=== PATIENT | female | born 1975 | race Caucasian/White ===

== ENCOUNTER 2016-10-26 18:04 | Observation (INO) | payer OTHER ==
[2016-10-26 19:17] LABS: Mean Cell Volume 96.9 fl (78-100); Mean Corpuscular Hemoglobin 32.1 pg (26-32); Mean Platelet Volume 10.3 fl (6-9.5); Platelet Count 334 K/mm3 (150-450); Red Blood Count 3.92 M/mm3 (4.1-5.4); Red Cell Distribution Width 12.8 % (11.5-14.0)
[2016-10-26 19:21] LABS: ALBUMIN 3.6 g/dL (3.4-5.0); ALKALINE PHOSPHATASE 50 U/L (46-116); ANION GAP 16.1 MEQ/L (5-15); BILIRUBIN,TOTAL 0.3 mg/dL (0.2-1.0); BLOOD UREA NITROGEN 20 mg/dL (9-20); CHLORIDE 110 mEq/L (98-107); Carbon Dioxide 20.1 mEq/L (21-32); Glucose 91 MG/DL (70-110); LIPASE 141 U/L (73-393); Potassium 3.9 mEq/L (3.5-5.1); SGOT/AST 11 U/L (15-37); SGPT/ALT 11 U/L (12-78); SODIUM 142 mEq/L (136-145); Total Protein 6.9 gm/dL (6.4-8.2)
--- NOTE | 2016-10-26 19:35 | ERPHSYRPT ---
- History of Present Illness Time Seen by Provider: 10/26/16 19:25 Historian: patient Exam Limitations: no limitations Patient Subjective Stated Complaint: states has been vomiting since 10/22/16. states she feels dehydrated. also having trouble with hemorrhoids. states she usually has them and they are worse today. also stating that she is having rectal bleeding. Triage Nursing Assessment: ambulated to room with a cane. skin w/d, color normal, resp easy. patient crying at times. moving very slowly. states was put on antibiotic recently for possible eye infection. abd soft. Physician History: 40 year old white female arrives with complaints of nausea, vomiting, diffuse abdominal pain, symptom since 10/22 16 also states her chronic hemhorroids hurt Patient states that she has chronic hemorrhoids she states it has been hurting lately she also states she's been vomiting since October 22, 2016 she states she feels dehydrated she has generalized abdominal pain patient is on chronic [place] also dextroamphetamine and Lyrica which are prescribed by her family doctor. When I arrive in the room patient is sleeping and I have to shake her to arouse her once arouse she is alert and oriented. Timing/Duration: day(s) (4 days) Activities at Onset: none (good) Quality: cramping Abdominal Pain Onset Location: generalized abdomen Pain Radiation: no radiation Severity of Pain-Max: moderate Severity of Pain-Current: mild Modifying Factors: Improves With: nothing Associated Symptoms: other (hemorrhoid pain) Previous symptoms: same symptoms as today Allergies/Adverse Reactions: Penicillins Allergy (Verified 06/17/16 05:52) Rash propoxyphene HCl [From Darvon] Allergy (Verified 06/17/16 05:52) PASS OUT Home Medications: Omeprazole 20 MG [Prilosec 20 mg] 40 mg PO DAILY 05/01/13 [History] Dextroamphetamine/Amphetamine [Adderall Xr 10 mg Capsule] 20 mg PO BID 12/21/14 [History] Ondansetron HCl [Zofran] 8 mg PO Q8H PRN PRN 12/21/14 [History] Pregabalin [Lyrica] 75 mg PO TID 02/10/16 [History] Cefdinir [Omnicef] 300 mg PO BID 10/26/16 [History] Hx Tetanus, Diphtheria Vaccination/Date Given: Yes Hx Influenza Vaccination/Date Given: Yes Hx Pneumococcal Vaccination/Date Given: No - Review of Systems Constitutional: No Fever, No Chills Eyes: No Symptoms Ears, Nose, & Throat: No Symptoms Respiratory: No Cough, No Dyspnea Cardiac: No Chest Pain, No Edema, No Syncope Abdominal/Gastrointestinal: Abdominal Pain, Nausea, Vomiting, Other (hemorrhoid pain) Genitourinary Symptoms: No Dysuria Musculoskeletal: No Back Pain, No Neck Pain Skin: No Rash Neurological: No Dizziness, No Focal Weakness, No Sensory Changes Psychological: No Symptoms Endocrine: No Symptoms All Other Systems: Reviewed and Negative - Past Medical History Pertinent Past Medical History: Yes Neurological History: Seizures ENT History: No Pertinent History Cardiac History: No Pertinent History Respiratory History: COPD Endocrine Medical History: Other Musculoskeletal History: Fibromyalgia GI Medical History: Esophageal Disorder, GERD History: No Pertinent History Psycho-Social History: Anxiety, Depression, Panic Disorder Female Reproductive Disorders: Abnormal Uterine Bleeding Other Medical History: lupus, neuropathy - Past Surgical History Past Surgical History: Yes Neuro Surgical History: No Pertinent History Cardiac: No Pertinent History Respiratory: No Pertinent History Gastrointestinal: No Pertinent History Genitourinary: No Pertinent History Musculoskeletal: No Pertinent History Female Surgical History: Hysterectomy Other Surgical History: ABLATION - TUBAL LIGATION. HAS HAD BACK PROCEDURE WHER THEY WENT IN AN CAUTERYZED HER LOWER NERVES. BILATERAL WRIST SURGERY - Social History Smoking Status: Current every day smoker How long have you smoked: yrs Exposure to second hand smoke: Yes Drug Use: none Patient Lives Alone: No - Female History Hx Now: No - Nursing Vital Signs Nursing Vital Signs: Initial Vital Signs Temperature 97.8 F Temperature Source Oral Pulse Rate 64 Respiratory Rate 16 Blood Pressure 123/70 Pain Intensity 10 - Physical Exam General Appearance: no apparent distress, alert Eye Exam: PERRL/EOMI, eyes nml inspection Ears, Nose, Throat Exam: normal ENT inspection, pharynx normal, moist mucous membranes Neck Exam: normal inspection, non-tender, supple, full range of motion Respiratory Exam: normal breath sounds, lungs clear, No respiratory distress Cardiovascular Exam: regular rate/rhythm, normal heart sounds Gastrointestinal/Abdomen Exam: soft, normal bowel sounds, other (diffuse abdominaltenderness) Back Exam: normal inspection, normal range of motion, No CVA tenderness, No vertebral tenderness Extremity Exam: normal inspection, normal range of motion, pelvis stable Neurologic Exam: alert, 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, cooperative, normal mood/affect, nml cerebellar function, sensation nml, No motor deficits Skin Exam: normal color, warm, dry SpO2 Interpretation: normal (99%) SpO2: 99 Oxygen Delivery: Room Air - Radiology Exams Abdomen X-ray Interpretation: Interpreted by me, Other (distended large bowel) Chest X-ray Interpretation: Interpreted by me (no acute disease process) Ordered Tests: Active Orders 24 hr Category Date Time Status IV Insertion STAT Care 10/26/16 19:36 Active OBSTR/ACUTE ABDOMEN SERIES Stat Exams 10/26/16 20:15 Taken AMYLASE Stat Lab 10/26/16 18:50 Completed CBC W DIFF Stat Lab 10/26/16 18:50 Completed CMP Stat Lab 10/26/16 18:50 Completed LIPASE Stat Lab 10/26/16 18:50 Completed Manual Differential NC Stat Lab 10/26/16 18:50 Completed UA W/RFX UR CULTURE Stat Lab 10/26/16 19:45 Completed Medication Summary Discontinued Medications Generic Name Dose Route Start Last Admin Trade Name Manish PRN Reason Stop Dose Admin Sodium Chloride 1,000 mls @ 999 mls/hr 10/26/16 19:36 10/26/16 19:39 Sodium Chloride 0.9% 1000 Ml IV 10/26/16 20:36 999 mls/hr .Q1H1M STA Administration Sodium Chloride Confirm 10/26/16 19:38 Sodium Chloride 0.9% 1000 Ml Administered 10/26/16 19:39 Dose 1,000 mls @ ud .ROUTE .STK-MED ONE Lidocaine HCl 20 ml 10/26/16 19:59 10/26/16 20:06 Xylocaine Hcl Viscous * MM 10/26/16 20:00 20 ml STAT STA Administration Lidocaine HCl Confirm 10/26/16 20:03 Xylocaine Hcl Viscous * Administered 10/26/16 20:04 Dose 20 ml .ROUTE .STK-MED ONE Morphine Sulfate 4 mg 10/26/16 19:44 10/26/16 19:47 Morphine Sulfate 4 Mg Inj IV 10/26/16 19:45 4 mg STAT ONE Administration Morphine Sulfate Confirm 10/26/16 19:46 Morphine Sulfate 4 Mg Inj Administered 10/26/16 19:47 Dose 4 mg .ROUTE .STK-MED ONE Ondansetron HCl 4 mg 10/26/16 19:44 10/26/16 19:47 Zofran 4 Mg/2 Ml Vial IV 10/26/16 19:45 4 mg STAT ONE Administration Ondansetron HCl Confirm 10/26/16 19:46 Zofran 4 Mg/2 Ml Vial Administered 10/26/16 19:47 Dose 4 mg .ROUTE .STK-MED ONE Lab/Rad Data: Laboratory Result Diagrams 10/26/16 18:50 10/26/16 18:50 Laboratory Results 10/26/16 10/26/16 10/26/16 Range/Units 19:45 18:50 18:50 WBC 9.0 (4.0-10.5) K/mm3 RBC 3.92 L (4.1-5.4) M/mm3 Hgb 12.6 (12.0-16.0) gm/dl Hct 38.0 (35-47) % MCV 96.9 (78-100) fl MCH 32.1 H (26-32) pg MCHC 33.2 (32-36) g/dl RDW 12.8 (11.5-14.0) % Plt Count 334 (150-450) K/mm3 MPV 10.3 H (6-9.5) fl Segmented Neutrophils 58 (36.0-66.0) % Lymphocytes (Manual) 30 (24-44) % Monocytes (Manual) 9 (0.0-12.0) % Eosinophils (Manual) 3 (0.00-3.0) % Differential Comment NORMAL Platelet Estimate NORMAL (NORMAL) Sodium 142 (136-145) mEq/L Potassium 3.9 (3.5-5.1) mEq/L Chloride 110 H (98-107) mEq/L Carbon Dioxide 20.1 L (21-32) mEq/L Anion Gap 16.1 H (5-15) MEQ/L BUN 20 (9-20) mg/dL Creatinine 0.83 (0.55-1.30) mg/dl Estimated GFR > 60 ML/MIN Glucose 91 (70-110) MG/DL Calcium 8.3 L (8.5-10.1) mg/dL Total Bilirubin 0.3 (0.2-1.0) mg/dL AST 11 L (15-37) U/L ALT 11 L (12-78) U/L Alkaline Phosphatase 50 (46-116) U/L Serum Total Protein 6.9 (6.4-8.2) gm/dL Albumin 3.6 (3.4-5.0) g/dL Amylase 22 L (25-115) U/L Lipase 141 (73-393) U/L Ur Collection Type CATH Urine Color YELLOW (YELLOW) Urine Appearance CLEAR (CLEAR) Urine pH 7.5 (5-6) Ur Specific [place] 1.015 (1.005-1.025) Urine Protein NEGATIVE (Negative) Urine Glucose (UA) NEGATIVE (NEGATIVE) mg/dL Urine Ketones NEGATIVE (NEGATIVE) Urine Nitrite NEGATIVE (NEGATIVE) Urine Bilirubin NEGATIVE (NEGATIVE) Urine Urobilinogen 4 (0-1) mg/dL Urine WBC (Auto) NEGATIVE (NEGATIVE) Urine RBC (Auto) NEGATIVE (0-5) Ross/ul Specimen Received 10/26/16:1945 - Progress Progress: improved Progress Note: 10/26/16 21:50 Patient's labs essentially normal. Patient does have a rather large hemorrhoid on rectal examination about the size of a dime which is quite tender making it almost impossible to get a rectal examination done. Viscous lidocaine was placed on the hemorrhoid by the patient's nurse. Acute abdomen on the patient shows markedly distended colon. Case discussed with Dr. Mohan who is information clerk will place patient nothing by mouth, place her on IV fluids pain medicine Zofran. Will obtain CT of the abdomen and pelvis on the floor - Departure Time of Disposition: 21:51 Departure Disposition: Observation Clinical Impression: Rectal pain Abdominal pain Qualifiers: Abdominal location: lower abdomen, unspecified Qualified Code(s): R10.30 - Lower abdominal pain, unspecified Vomiting Qualifiers: Vomiting type: unspecified Vomiting Intractability: non-intractable Nausea presence: without nausea Qualified Code(s): R11.11 - Vomiting without nausea Diarrhea Qualifiers: Diarrhea type: unspecified type Qualified Code(s): R19.7 - Diarrhea, unspecified Condition: Fair Critical Care Time: No
[2016-10-26] MEDS ORDERED: Sodium Chloride 0.9% 1000 ML 1,000 ML IV STA (19:36)
[2016-10-26] MEDS ORDERED: Sodium Chloride 0.9% 1000 ML 1,000 ML ONE (19:38)
[2016-10-26] MEDS ORDERED: Zofran 4 MG/2 ML VIAL IV ONE (19:44)
[2016-10-26] MEDS ORDERED: MORPHINE SULFATE 4 MG INJ IV ONE (19:44)
[2016-10-26] MEDS ORDERED: MORPHINE SULFATE 4 MG INJ ONE (19:46)
[2016-10-26] MEDS ORDERED: Zofran 4 MG/2 ML VIAL ONE (19:46)
[2016-10-26 19:57] LABS: ADD URINE CULTURE? NO (NO); COMPLETE URINE MICROSCOPIC? NO; Collection Type CATH; Ph 7.5 (5-6)
[2016-10-26] MEDS ORDERED: XYLOCAINE HCl Viscous MM STA (19:59)
[2016-10-26] MEDS ORDERED: XYLOCAINE HCl Viscous ONE (20:03)
[2016-10-26 21:30] LABS: Eosinophil 3 % (0.00-3.0); Platelet Estimate NORMAL (NORMAL); Total Cells Counted 100
[2016-10-26] MEDS ORDERED: Zofran 4 MG/2 ML VIAL IV PRN (22:55)
[2016-10-26] MEDS: Sodium Chloride 0.9% 1000 ML 1,000 ML IV SCH (23:03)
[2016-10-27] MEDS ORDERED: ANUSOL-HC 2.5% CREAM 30 GM TP PRN (00:56)
[2016-10-27] MEDS ORDERED: DESYREL 50 MG ONE (01:08)
[2016-10-27] MEDS ORDERED: xanAX 0.25 MG ONE (01:08)
[2016-10-27] MEDS: xanAX 0.25 MG PO SCH ×2 (01:15→22:31)
[2016-10-27] MEDS: DESYREL 50 MG PO SCH ×2 (01:15→22:35)
[2016-10-27 05:59] LABS: ALBUMIN 3.2 g/dL (3.4-5.0); ALKALINE PHOSPHATASE 43 U/L (46-116); BILIRUBIN,TOTAL 0.4 mg/dL (0.2-1.0); BLOOD UREA NITROGEN 20 mg/dL (9-20); CHLORIDE 113 mEq/L (98-107); Carbon Dioxide 22.3 mEq/L (21-32); Glucose 104 MG/DL (70-110); Potassium 3.5 mEq/L (3.5-5.1); SGOT/AST 20 U/L (15-37); SGPT/ALT 9 U/L (12-78); SODIUM 145 mEq/L (136-145); Total Protein 6.1 gm/dL (6.4-8.2)
[2016-10-27 06:01] LABS: BASOPHIL % 0.4 % (0.0-0.4); Eosinophil % 3.1 % (0.00-5.0); Granulocytes % 47.6 % (36.0-66.0); Lymphocytes % 40.9 % (24.0-44.0); Mean Cell Volume 98.3 fl (78-100); Mean Platelet Volume 10.2 fl (6-9.5); Platelet Count 298 K/mm3 (150-450); Red Blood Count 3.59 M/mm3 (4.1-5.4); White Blood Count 7.4 K/mm3 (4.0-10.5)
[2016-10-27 06:06] LABS: Mean Corpuscular Hemoglobin 31.4 pg (26-32)
[2016-10-27] MEDS: MORPHINE SULFATE 4 MG INJ IV PRN ×4 (08:11→22:30)
--- NOTE | 2016-10-27 08:43 | XRAY ---
Indication: Abdomen pain and emesis. Comparison: Chest exam of September 13, 2014 2 views of the abdomen nonacute and nonobstructed with mild fecal debris in the transverse and descending colon. Calcified splenic granulomas. Remaining solid organs are unremarkable. Osseous structures intact with mild levoscoliosis and lumbosacral degenerative changes. Impression: Single PA chest demonstrates right base fibrosis/scarring. Remaining heart and lungs normal. Bony thorax intact with lower cervical fusion surgery. Impression: 1. Mild fecal stasis without obstruction. 2. Chest demonstrates right base fibrosis/scarring. No acute cardiopulmonary abnormalities.
--- NOTE | 2016-10-27 10:02 | XRAY ---
Indication: Abdominal pain and constipation. Possible impaction. Multiple contiguous axial images obtained through the abdomen and pelvis using 80 cc Isovue 370 contrast. Oral contrast also given. Comparison: June 17, 2016 Lung bases demonstrates new moderate bibasilar dependent atelectasis. Heart is not enlarged. Contrasted stomach and bowel loops appear nonobstructed. There is moderate diffuse colonic fecal debris more than before without rectal impaction. Normal appendix. No free fluid/air. I scattered calcified splenic granulomas. Remaining liver, gallbladder, pancreas, spleen, adrenal glands, kidneys, ureters, bladder, uterus, and aorta appear unremarkable. No pathologic retroperitoneal lymphadenopathy. Osseous structures intact. Impression: 1. Worsening fecal stasis again without obstruction/impaction. 2. No new or acute intra-abdominal/pelvic abnormalities. 3. New bibasilar dependent atelectasis. CT DI is 23.69
[2016-10-27] MEDS: Sodium Chloride 0.9% 1000 ML 1,000 ML IV SCH ×2 (10:24→20:24)
[2016-10-27] MEDS: Protonix 40MG Tablet PO SCH (11:12)
[2016-10-27] MEDS: Cymbalta 30 MG Capsule PO SCH (11:12)
[2016-10-27] MEDS: CEFDINIR PO SCH ×2 (11:45→22:31)
[2016-10-27] MEDS: VOLTAREN 50 MG PO SCH ×2 (11:45→22:31)
[2016-10-27] MEDS: NORCO 5/325 MG PO SCH ×3 (13:33→20:03)
[2016-10-27] MEDS: Lyrica 25 MG PO SCH ×2 (14:34→22:31)
[2016-10-27] MEDS: Lyrica 50MG PO SCH ×2 (14:34→22:31)
[2016-10-27] MEDS ORDERED: NON-FORMULARY ITEM (Pregabalin [Lyrica] 75 MG) PO SCH (15:00)
[2016-10-27] MEDS ORDERED: Miralax Powder 17GM PACKET PO ONE (17:00)
[2016-10-27] MEDS ORDERED: Desyrel 150 MG PO SCH (22:00)
[2016-10-27] MEDS ORDERED: NON-FORMULARY ITEM (Diclofenac Sodium [Diclofenac Sodium] 75 MG) PO SCH (22:00)
[2016-10-27] MEDS ORDERED: CEFDINIR 300 MG PO SCH (22:00)
[2016-10-28] MEDS: MORPHINE SULFATE 4 MG INJ IV PRN ×4 (04:28→17:33)
[2016-10-28] MEDS: Sodium Chloride 0.9% 1000 ML 1,000 ML IV SCH ×2 (06:17→16:28)
[2016-10-28] MEDS: Cymbalta 30 MG Capsule PO SCH (08:56)
[2016-10-28] MEDS: Lyrica 50MG PO SCH ×2 (08:56→15:04)
[2016-10-28] MEDS: Protonix 40MG Tablet PO SCH (08:57)
[2016-10-28] MEDS: VOLTAREN 50 MG PO SCH (08:57)
[2016-10-28] MEDS: Lyrica 25 MG PO SCH ×2 (08:57→15:04)
[2016-10-28] MEDS: NORCO 5/325 MG PO SCH ×3 (09:01→16:52)
[2016-10-28] MEDS: Zofran 4 MG/2 ML VIAL IV PRN ×2 (09:14→17:41)
--- NOTE | 2016-10-28 09:32 | CONS ---
CONSULT DATE: 10/27/2016 This patient is seen for Dr. Meehna who is occupational therapy co director for our group today. HISTORY: The patient is a 40 year-old female who had some problems with constipation recently. She had some loose stools, given some MiraLAX. She had a CT scan that showed fecal stasis otherwise no obstruction, no acute changes. Dr. Mohan asked for surgical consult. The patient said she had colonoscopy a year or so ago that did not show any masses. She had some small benign polyps. PAST MEDICAL/SURGICAL HISTORY: Seizure disorders in the past. Fibromyalgia. Depression. Panic disorder. Reflux in the past. Ablation. Tubal ligation in the past. Bilateral wrist surgery where they worked on her nerves. She had some chronic back pain. MEDICATIONS: Includes omeprazole, Adderall, Zofran, Lyrica, Omnicef. The patient does take some Vicodin at times for aches and pains holding that at this moment. ALLERGIES: PENICILLIN, DARVON. SOCIAL HISTORY: Smoker. No alcohol abuse. REVIEW OF SYSTEMS: Ten systems reviewed negative or noncontributory as noted above and per admission assessment. PHYSICAL EXAMINATION: GENERAL: No acute distress. She is afebrile, temperature 98.8F, pulse 65, blood pressure 114/63. HEENT: Sclera nonicteric. NECK: No JVD. CHEST: Equal excursion, nonlabored breathing. CVS: Regular rhythm and pulse. ABDOMEN: Soft, minimal tenderness. No rebound or guarding. No peritoneal signs. A very benign abdominal exam. LAB DATA AND TESTS: White blood cell count 7.4, hemoglobin 11.3, PLT 298,000. Bilirubin 0.4. IMPRESSION: Vague abdominal pain, nontoxic, afebrile patient. Seems possibly related to some constipation as there is no other obvious acute surgical issues noted on CT scan, physical exam or lab findings. I recommend continued medical management of constipation. If she fails to improve we can re-evaluate and consider other testing but at this time no emergent surgery necessary, continue medical management for now. If she fails to improve could consider other GI studies but at this point continue medical management of constipation. The patient agrees with the plan. The patient was seen for Dr. Meehan who was on-call for our group today.
--- NOTE | 2016-10-28 09:50 | HP ---
HISTORY OF PRESENT ILLNESS: Tamica Cartagena is a 40 year old woman with past medical history of seizures, chronic obstructive pulmonary disease, chronic pain syndrome, gastroesophageal reflux disease, anxiety/depression, lupus, neuropathy, abnormal uterine bleeding and hemorrhoids. She presented to the emergency room yesterday with symptoms of vomiting, generalized weakness, nausea since 10/22/2016. Reportedly the patient has been having increasing trouble with hemorrhoids and having some rectal bleeding. She was unable to keep anything down due to symptoms of nausea, vomiting and felt dehydrated. She also reported generalized abdominal pain. Upon initial evaluation in the emergency room, she was noted to have blood pressure 123/70, heart rate 64, respiratory rate 16, and temperature 97.8F. After initial work up she was treated with morphine 4 mg IV x1, Zofran 4 mg IV x1 and admitted to the medical floor for further monitoring and management. Since admission she underwent CT scan of abdomen and pelvis. Initially she had been placed NPO. At the time of this evaluation earlier today she was alert, awake, and comfortable. She stated that her abdominal pain had improved. She had not had any vomiting today and she was asking for some diet to be started. Appeared comfortable. PAST MEDICAL HISTORY: As noted above. PAST SURGICAL HISTORY: Status post ablation. Tubal ligation. Hysterectomy. Procedure for her back. Bilateral wrist surgery. ALLERGIES: PENICILLIN, PROPOXYPHENE. MEDICATIONS: Home medications were reviewed. FAMILY HISTORY: Noncontributory. SOCIAL HISTORY: The patient lives at home and is an active smoker. She also has history of exposure to secondhand smoke, denies illicit drug use. REVIEW OF SYSTEMS: Denies headache or dizziness. Complains of fever. Denies chest pain, increased shortness of breath or cough. Complains of abdominal pain, nausea and vomiting as noted. Complains of constipation which is chronic. Complains of pain with hemorrhoids and bleeding. Denies urinary complaints. PHYSICAL EXAMINATION: A middle aged woman lying comfortably in bed, not in acute distress. VITAL SIGNS: Blood pressure 102/63, heart rate 64, respiratory rate 18, temperature 98.2F. Oxygen saturation 96% on room air. HEENT: Pallor is present. No icterus is noted. NECK: No JVD is present. CVS: S1, S2 present. RESPIRATORY: Breath sounds are bilaterally diminished and clear to auscultation. ABDOMEN: Obese, soft, mild tenderness right and left lower quadrants. No guarding present. NEURO: She is alert, oriented x3. EXTREMITIES: No edema on bilateral lower extremities. LABORATORY DATA AND TESTS: Labs on admission and today's labs were noted. KUB showed mild fecal stasis without obstruction. Chest x-ray showed right base fibrosis/scarring, no acute cardiopulmonary abnormality. CT scan of abdomen and pelvis from earlier today showed worsening fecal stasis again without obstruction/impaction, no new or acute intra-abdominal or pelvic abnormalities, new bibasilar dependent atelectasis. ASSESSMENT: A 40 year old female with impression: 1) Lower abdominal pain. 2) Intractable nausea and vomiting, improving. 3) Hemorrhoids. 4) Chronic pain syndrome. 5) Anxiety/depression. 6) History of seizure disorder. 7) Chronic obstructive pulmonary disease. PLAN: The patient is admitted for further monitoring and management. Initially she was kept NPO. In view of essentially negative CT scan, surgical consultation has been requested. Also, if there are no plans for procedure, will likely start diet as tolerated. The patient was placed on MiraLAX for her constipation. Likely discharge home tomorrow if clinically improved. The patient's clinical condition, work up results and plan of management was discussed with the patient and her . The patient seems to be in understanding and agreement.
[2016-10-28] MEDS ORDERED: Miralax Powder 17GM PACKET PO SCH (10:00)
[2016-10-28] MEDS ORDERED: NON-FORMULARY ITEM (Omeprazole 20 Mg [Prilosec 20 Mg] 40 MG) PO SCH (10:00)
[2016-10-28] MEDS: CEFDINIR PO SCH (10:35)
[2016-10-28 11:32] VITALS: O2SAT 95
--- NOTE | 2016-10-28 14:46 | PROG NOTE ---
DATE: 10/28/2016 Chart is reviewed and events noted. At the time of this evaluation the patient still had some lower abdominal pain however she is having constipation and requesting additional medication for that. Appears comfortable. PHYSICAL EXAMINATION: VITAL SIGNS: Blood pressure 130/58, heart rate 67, respiratory rate 20, temperature 98.2F. Oxygen saturation 95% on room air. HEENT: No pallor or icterus is noted. NECK: No JVD is present. CVS: S1, S2 present. RESPIRATORY: Breath sounds are bilaterally diminished and clear to auscultation. ABDOMEN: Obese, soft, mild tenderness in the right lower quadrant and left lower quadrant. NEURO: She is alert, oriented x3. EXTREMITIES: No edema on bilateral lower extremities. LABORATORY DATA AND TESTS: There were no new labs today. Medications were reviewed. ASSESSMENT: A 40 year old woman with impression: 1) Lower abdominal pain. 2) Intractable nausea and vomiting, now resolved. 3) Hemorrhoids. 4) Constipation. 5) Chronic pain syndrome. 6) Anxiety/depression. 7) Chronic obstructive pulmonary disease. 8) History of seizure disorder. PLAN: The patient was evaluated by surgery and conservative treatment has been recommended. She will have hemorrhoid treatment. The patient is requesting diet to be restarted and will restart diet. If the patient tolerates diet, will likely discharge home later today, will also add laxatives. If the patient tolerates diet and is feeling better, will likely discharge home later today. The patient's clinical condition, work-up results and plan of management were discussed with her and her family. They seem to be in understanding and agreement.
[2016-10-28] MEDS ORDERED: Miralax Powder 17GM PACKET PO ONE (16:15)
[2016-10-28 16:56] VITALS: BP 117/56; PULSE 77
== END 2016-10-28 18:54 | disposition home or self-care (01) ==
LOC: ED 18:04 → MED SURG 22:06
PROVIDERS: ADMIT General Practice; ATTEND General Practice
DX: R10.30 Lower abdominal pain, unspecified (principal); R11.2 Nausea with vomiting, unspecified; K64.9 Unspecified hemorrhoids; F41.8 Other specified anxiety disorders; G40.909 Epilepsy, unspecified, not intractable, without status epilepticus; J44.9 Chronic obstructive pulmonary disease, unspecified; G89.4 Chronic pain syndrome; K21.9 Gastro-esophageal reflux disease without esophagitis; G62.9 Polyneuropathy, unspecified; M79.7 Fibromyalgia; Z72.0 Tobacco use
CPT/HCPCS: 36000; 36415; 74022; 74177; 80053; 81000; 82150; 83690; 85025; 96360; 96374; 96375; 99284; G0378; J2270; J2405

== ENCOUNTER 2017-03-22 07:44 | Observation (INO) | payer OTHER ==
[2017-03-22] MEDS ORDERED: Hydromorphone 1 mg/ml Ampule IV ONE (08:27)
[2017-03-22] MEDS ORDERED: Sodium Chloride 0.9% 1000 ML 1,000 ML IV STA (08:27)
[2017-03-22] MEDS ORDERED: Zofran 4 MG/2 ML VIAL IV ONE (08:27)
[2017-03-22] MEDS ORDERED: PROTONIX 40 MG IV IV ONE ×2 (08:27→08:44)
[2017-03-22 08:39] LABS: BASOPHIL % 0.2 % (0.0-0.4); Eosinophil % 1.4 % (0.00-5.0); Granulocytes % 76.1 % (36.0-66.0); Mean Cell Volume 98.4 fl (78-100); Mean Corpuscular Hemoglobin 32.6 pg (26-32); Mean Platelet Volume 10.3 fl (6-9.5); Monocytes % 5.3 % (0.0-12.0); Platelet Count 291 K/mm3 (150-450); Red Blood Count 4.26 M/mm3 (4.1-5.4); Red Cell Distribution Width 13.6 % (11.5-14.0); White Blood Count 8.3 K/mm3 (4.0-10.5)
[2017-03-22 08:43] LABS: ADD URINE CULTURE? YES (NO); COMPLETE URINE MICROSCOPIC? YES; Collection Type VOID; Ph 5.5 (5-6)
[2017-03-22] MEDS ORDERED: Zofran 4 MG/2 ML VIAL ONE (08:44)
[2017-03-22] MEDS ORDERED: Hydromorphone 1 mg/ml Ampule ONE (08:44)
[2017-03-22] MEDS ORDERED: Sodium Chloride 0.9% 1000 ML 1,000 ML ONE (08:45)
--- NOTE | 2017-03-22 08:45 | ERPHSYRPT ---
- History of Present Illness Time Seen by Provider: 03/22/17 08:20 Historian: patient, other Exam Limitations: clinical condition Patient Subjective Stated Complaint: pt states has had loose foul smelling stools for the past week up to 5 times daily. Today is having severe pain in the lower abdomin that radiates into the right thigh. pain is so bad it is causing a headache. denies any recent antibiotic use. Triage Nursing Assessment: alert and oriented. pink warm and dry. afebrile. bowel sounds active. crying in pain. guarding the abdomin. able to ambulate into the er Physician History: PATIENT COMPLAINS OF WATERY DIARRHEA FOR 4-5 DAYS ASSOCIATED SEVERE LOWER ABDOMINAL PAINS SINCE 3AM, HAS NAUSEA, DENIES EMESIS, FEVER, OR URINARY SYMPTOMS. Timing/Duration: day(s) Activities at Onset: none Quality: sharpness, throbbing Abdominal Pain Onset Location: periumbilical, suprapubic Pain Radiation: no radiation Severity of Pain-Max: moderate Severity of Pain-Current: moderate Modifying Factors: Improves With: defecating Associated Symptoms: diarrhea, nausea Previous symptoms: no prior history Allergies/Adverse Reactions: Penicillins Allergy (Verified 03/22/17 08:04) Rash propoxyphene HCl [From Darvon] Allergy (Verified 03/22/17 08:04) PASS OUT Home Medications: Omeprazole 20 MG [Prilosec 20 mg] 40 mg PO DAILY 05/01/13 [History] Ondansetron HCl [Zofran] 4 mg PO Q8H PRN PRN 12/21/14 [History] Pregabalin [Lyrica] 75 mg PO TID 02/10/16 [History] Alprazolam 0.25 mg [xanAX 0.25 MG] 0.25 mg PO HS 10/26/16 [History] Dextroamphetamine/Amphetamine [Adderall 20 mg Tablet] 20 mg PO BID 10/26/16 [ History] Duloxetine HCl 30 mg [Cymbalta 30 MG Capsule] 90 mg PO DAILY 10/26/16 [ History] Topiramate 100 mg [Topamax 100 MG] 100 mg PO BID 10/26/16 [History] Trazodone HCl 50 mg [Desyrel 50 mg] 100 mg PO HS 10/26/16 [History] Diclofenac Sodium 75 mg PO BID 10/27/16 [History] Metoprolol Tartrate 50 mg [Lopressor 50 MG] 50 mg PO BID 10/27/16 [History ] Hx Tetanus, Diphtheria Vaccination/Date Given: Yes Hx Influenza Vaccination/Date Given: Yes Hx Pneumococcal Vaccination/Date Given: No - Review of Systems Constitutional: No Fever, No Chills Eyes: No Symptoms Ears, Nose, & Throat: No Symptoms Respiratory: No Cough, No Dyspnea Cardiac: No Chest Pain, No Edema, No Syncope Abdominal/Gastrointestinal: Abdominal Pain, Nausea, Diarrhea, No Vomiting Genitourinary Symptoms: No Dysuria Musculoskeletal: No Back Pain, No Neck Pain Skin: No Rash Neurological: No Symptoms, No Dizziness, No Focal Weakness, No Sensory Changes Psychological: No Symptoms Endocrine: No Symptoms All Other Systems: Reviewed and Negative - Past Medical History Pertinent Past Medical History: Yes Neurological History: Seizures ENT History: No Pertinent History Cardiac History: No Pertinent History Respiratory History: COPD Endocrine Medical History: Other Musculoskeletal History: Fibromyalgia GI Medical History: Esophageal Disorder, GERD History: No Pertinent History Psycho-Social History: Anxiety, Depression, Panic Disorder Female Reproductive Disorders: Abnormal Uterine Bleeding Other Medical History: lupus, neuropathy - Past Surgical History Past Surgical History: Yes Neuro Surgical History: No Pertinent History Cardiac: No Pertinent History Respiratory: No Pertinent History Gastrointestinal: No Pertinent History Genitourinary: No Pertinent History Musculoskeletal: No Pertinent History Female Surgical History: Hysterectomy Other Surgical History: ABLATION - TUBAL LIGATION. HAS HAD BACK PROCEDURE WHER THEY WENT IN AN CAUTERYZED HER LOWER NERVES. BILATERAL WRIST SURGERY - Social History Smoking Status: Current every day smoker How long have you smoked: 20 years Exposure to second hand smoke: Yes Drug Use: none Patient Lives Alone: No - Female History Hx Last Menstrual Period: ablasion Hx Now: No - Nursing Vital Signs Nursing Vital Signs: Initial Vital Signs Temperature 99 F Temperature Source Oral Pulse Rate 86 Respiratory Rate 18 Blood Pressure [] 102/58 Pain Intensity 6 - Physical Exam General Appearance: mild distress, alert Eye Exam: PERRL/EOMI, eyes nml inspection Ears, Nose, Throat Exam: normal ENT inspection, pharynx normal, moist mucous membranes Neck Exam: normal inspection, non-tender, supple, full range of motion Respiratory Exam: normal breath sounds, lungs clear, No respiratory distress Cardiovascular Exam: regular rate/rhythm, normal heart sounds Gastrointestinal/Abdomen Exam: soft, normal bowel sounds, tenderness ( SUPRAPUBIC TENDERNESS, RLQ, LLQ TENDERNESS), No mass Back Exam: normal inspection, normal range of motion, CVA tenderness (RIGHT CVA TENDERNESS), No vertebral tenderness Extremity Exam: normal inspection, normal range of motion, pelvis stable Neurologic Exam: alert, 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, cooperative, normal mood/affect, nml cerebellar function, sensation nml, No motor deficits Skin Exam: normal color, warm, dry SpO2 Interpretation: normal SpO2: 97 Oxygen Delivery: Room Air - CT Exams Abdomen/Pelvis CT Interpretation: Discussed w/radiologist (MILD ASCENDING TRANSVERSE COLON WALL THICKENING WITH FLUID LEVELING, POSS COLITIS, NORMAL APPENDICITIS) Ordered Tests: Active Orders 24 hr Category Date Time Status Up Ad Lyssa ROUTINE Activity 03/22/17 10:45 Ordered Admission/Status Order ROUTINE Care 03/22/17 10:42 Ordered Call Admit Doctor for Orders ON ADMISSION Care 03/22/17 10:44 Ordered Code Status Order ROUTINE Care 03/22/17 10:42 Ordered IV Care Q6H Care 03/22/17 10:42 Ordered IV Insertion STAT Care 03/22/17 08:27 Active Intake and Output Q12H Care 03/22/17 10:41 Ordered Telemetry ROUTINE Care 03/22/17 10:41 Ordered Vital Signs Q4H Care 03/22/17 10:41 Ordered NPO Diet 03/22/17 10:45 Ordered ABDOMEN AND PELVIS W CONTRAST [CT] Stat Exams 03/22/17 08:32 Taken AMYLASE Stat Lab 03/22/17 08:30 Completed BLOOD CULTURE Stat Lab 03/22/17 08:41 Received CBC W DIFF Stat Lab 03/22/17 08:30 Completed CMP Stat Lab 03/22/17 08:30 Completed CULTURE,URINE Stat Lab 03/22/17 08:30 Received LIPASE Stat Lab 03/22/17 08:30 Completed UA W/ MICROSCOPIC Stat Lab 03/22/17 08:30 Completed Oxygen NASAL CANNULA 2 lpm RT 03/22/17 10:41 Ordered Pulse Oximetry CONTINUOUS RT 03/22/17 10:45 Ordered Transfer Order Routine Transfer 03/22/17 10:40 Ordered Medication Summary Generic Name Dose Route Start Last Admin Trade Name Freq PRN Reason Stop Dose Admin Levofloxacin/Dextrose 500 mg in 100 mls @ 100 mls/hr 03/22/17 10:02 Levofloxacin 500mg/100ml D5w IV 03/22/17 11:01 STAT STA Discontinued Medications Generic Name Dose Route Start Last Admin Trade Name Manish PRN Reason Stop Dose Admin Hydromorphone HCl 2 mg 03/22/17 08:27 03/22/17 08:50 Hydromorphone 1 Mg/Ml Ampule IV 03/22/17 08:28 2 mg STAT ONE Administration Hydromorphone HCl Confirm 03/22/17 08:44 Hydromorphone 1 Mg/Ml Ampule Administered 03/22/17 08:45 Dose 2 mg .ROUTE .STK-MED ONE Sodium Chloride 1,000 mls @ 999 mls/hr 03/22/17 08:27 03/22/17 08:50 Sodium Chloride 0.9% 1000 Ml IV 03/22/17 09:27 999 mls/hr .Q1H1M STA Administration Sodium Chloride Confirm 03/22/17 08:45 Sodium Chloride 0.9% 1000 Ml Administered 03/22/17 08:46 Dose 1,000 mls @ ud .ROUTE .STK-MED ONE Metronidazole 500 mg in 100 mls @ 200 mls/hr 03/22/17 10:03 03/22/17 10:18 Flagyl 500 Mg Ivpb IV 03/22/17 10:32 200 mls/hr STAT STA Administration Metronidazole Confirm 03/22/17 10:15 Flagyl 500 Mg Ivpb Administered 03/22/17 10:16 Dose 500 mg in 100 mls @ ud IV .STK-MED ONE Ondansetron HCl 4 mg 03/22/17 08:27 03/22/17 08:50 Zofran 4 Mg/2 Ml Vial IV 03/22/17 08:28 4 mg STAT ONE Administration Ondansetron HCl Confirm 03/22/17 08:44 Zofran 4 Mg/2 Ml Vial Administered 03/22/17 08:45 Dose 4 mg .ROUTE .STK-MED ONE Pantoprazole Sodium 40 mg 03/22/17 08:27 03/22/17 08:50 Protonix 40 Mg Iv IV 03/22/17 08:28 40 mg STAT ONE Administration Pantoprazole Sodium Confirm 03/22/17 08:44 Protonix 40 Mg Iv Administered 03/22/17 08:45 Dose 40 mg IV .STK-MED ONE Lab/Rad Data: Laboratory Result Diagrams 03/22/17 08:30 03/22/17 08:30 Laboratory Results 03/22/17 03/22/17 03/22/17 Range/Units 08:30 08:30 08:30 WBC 8.3 (4.0-10.5) K/mm3 RBC 4.26 (4.1-5.4) M/mm3 Hgb 13.9 (12.0-16.0) gm/dl Hct 41.9 (35-47) % MCV 98.4 (78-100) fl MCH 32.6 H (26-32) pg MCHC 33.2 (32-36) g/dl RDW 13.6 (11.5-14.0) % Plt Count 291 (150-450) K/mm3 MPV 10.3 H (6-9.5) fl Gran % 76.1 H (36.0-66.0) % Lymphocytes % 17.0 L (24.0-44.0) % Monocytes % 5.3 (0.0-12.0) % Eosinophils % 1.4 (0.00-5.0) % Basophils % 0.2 (0.0-0.4) % Basophils # 0.02 (0-0.4) Sodium 141 (136-145) mEq/L Potassium 3.3 L (3.5-5.1) mEq/L Chloride 105 (98-107) mEq/L Carbon Dioxide 22.3 (21-32) mEq/L Anion Gap 16.5 H (5-15) MEQ/L BUN 11 (9-20) mg/dL Creatinine 0.94 (0.55-1.30) mg/dl Estimated GFR > 60 ML/MIN Glucose 139 H (70-110) MG/DL Calcium 9.0 (8.5-10.1) mg/dL Total Bilirubin 0.20 (0.2-1.0) mg/dL AST 22 (15-37) U/L ALT 21 (12-78) U/L Alkaline Phosphatase 50 (46-116) U/L Serum Total Protein 7.4 (6.4-8.2) gm/dL Albumin 3.6 (3.4-5.0) g/dL Amylase 20 L (25-115) U/L Lipase 104 (73-393) U/L Ur Collection Type VOID Urine Color YELLOW (YELLOW) Urine Appearance SLIGHTLY CLOUDY (CLEAR) Urine pH 5.5 (5-6) Ur Specific [place] 1.025 (1.005-1.025) Urine Protein 30 (Negative) Urine Glucose (UA) NEGATIVE (NEGATIVE) mg/dL Urine Ketones TRACE (NEGATIVE) Urine Nitrite NEGATIVE (NEGATIVE) Urine Bilirubin SMALL (NEGATIVE) Urine Urobilinogen 0.2 (0-1) mg/dL Urine WBC (Auto) NEGATIVE (NEGATIVE) Urine RBC (Auto) MODERATE (0-5) Ross/ul Urine Microscopic RBC 0-2 (0-2) /HPF Urine Microscopic WBC 0-2 (0-5) /HPF Ur Epithelial Cells MANY (FEW) /HPF Urine Bacteria MODERATE (NEGATIVE) /HPF Specimen Received 03/22/17 0830 - Progress Progress Note: 03/22/17 08:44 PATIENT GIVEN IV BOLUS NORMAL SALINE, ZOFRAN 4MG, PROTONIX 40MG, DILAUDID 2MG IV 03/22/17 08:46 03/22/17 10:23 PATIENT AFTER 2 SETS OF BLOOD CULTURES GIVEN FLAGYL 500MG, LEVAQUIN 500MG IVPB Discussed with : Siri Baptiste (DISCUSSED WITH DR Leyla BAPTISTE AT 1020 FOR OBSERVATION) - Departure Time of Disposition: 10:35 Departure Disposition: Observation Clinical Impression: ACUTE COLITIS Condition: Stable Critical Care Time: No Referrals: PATRICIA CHEN [Primary Care Provider] -
[2017-03-22 08:55] LABS: ALBUMIN 3.6 g/dL (3.4-5.0); ALKALINE PHOSPHATASE 50 U/L (46-116); ANION GAP 16.5 MEQ/L (5-15); BLOOD UREA NITROGEN 11 mg/dL (9-20); CHLORIDE 105 mEq/L (98-107); Carbon Dioxide 22.3 mEq/L (21-32); Glucose 139 MG/DL (70-110); LIPASE 104 U/L (73-393); Potassium 3.3 mEq/L (3.5-5.1); SGOT/AST 22 U/L (15-37); SGPT/ALT 21 U/L (12-78); SODIUM 141 mEq/L (136-145); Total Protein 7.4 gm/dL (6.4-8.2)
[2017-03-22 08:57] LABS: Bacteria MODERATE /HPF (NEGATIVE); Epithelial Cells MANY /HPF (FEW); WBC 0-2 /HPF (0-5)
[2017-03-22] MEDS ORDERED: Levofloxacin 500MG/100ML D5W 500 MG/100 ML BAG IV STA (10:02)
[2017-03-22] MEDS ORDERED: FLAGYL 500 MG IVPB 500 MG/100 ML BAG IV STA (10:03)
[2017-03-22] MEDS ORDERED: FLAGYL 500 MG IVPB 500 MG/100 ML BAG IV ONE (10:15)
[2017-03-22] MEDS ORDERED: Zofran 4 MG/2 ML VIAL IV PRN (10:41)
[2017-03-22] MEDS: Sodium Chloride 0.9% W/ 20 mEq KCl/LITER 1,000 ML IV SCH (11:31)
[2017-03-22] MEDS: DILAUDID 2 MG INJECTION IV PRN ×3 (12:36→21:56)
--- NOTE | 2017-03-22 12:40 | XRAY ---
Indication: Right abdomen/pelvic pain. Diarrhea. Multiple contiguous axial images obtained through the abdomen and pelvis using 80 cc Isovue 370 contrast only. Comparison: October 27, 2016. Lung bases demonstrates minimal bibasilar dependent atelectasis. Heart is not enlarged. Noncontrasted stomach and bowel loops appear nonobstructed. There is now mild wall thickening of ascending and transverse colon with fluid leveling, possible colitis. Normal appendix. Again calcified splenic granulomas. There is tiny cul-de-sac fluid presumed from rupture/leaking cyst. Remaining liver, gallbladder, pancreas, spleen, adrenal glands, kidneys, ureters, bladder, uterus, and aorta appear unremarkable. No pathologic retroperitoneal lymphadenopathy. Osseous structures intact. Impression: 1. Descending and transverse colon wall thickening with fluid leveling possible colitis. 2. Tiny cul-de-sac fluid presumed ruptured/leaking cyst. CT DI 21.24
[2017-03-22] MEDS ORDERED: MEDICATION INTERVENTION MC PRN (13:21)
[2017-03-22] MEDS: Topamax 100 MG PO SCH ×2 (14:27→21:45)
[2017-03-22] MEDS: Cymbalta 30 MG Capsule PO SCH (14:27)
[2017-03-22] MEDS: xanAX 0.25 MG PO PRN ×2 (14:27→21:45)
[2017-03-22] MEDS: Lyrica 25 MG PO SCH ×2 (14:28→21:45)
[2017-03-22] MEDS: Lyrica 50MG PO SCH ×2 (14:28→21:45)
[2017-03-22] MEDS: PROPRANOLOL HCL PO SCH (14:29)
[2017-03-22] MEDS: VOLTAREN 50 MG PO SCH ×2 (14:30→21:44)
[2017-03-22] MEDS: Lopressor 50 MG PO SCH ×2 (14:48→21:48)
[2017-03-22] MEDS ORDERED: Nicoderm CQ 21 MG TOP SCH (15:00)
[2017-03-22] MEDS ORDERED: DUONEB 0.5-3 MG/3 ml Neb IH PRN (15:23)
[2017-03-22] MEDS: TYLENOL 325 MG PO PRN (15:53)
[2017-03-22] MEDS: DUONEB 0.5-3 MG/3 ml Neb IH SCH (16:34)
[2017-03-22] MEDS: FLAGYL 500 MG IVPB 500 MG/100 ML BAG IV SCH (17:06)
[2017-03-22] MEDS: DESYREL 50 MG PO SCH ×2 (21:45→21:50)
[2017-03-22] MEDS: Zofran 4 MG/2 ML VIAL IV PRN (21:56)
[2017-03-22] MEDS ORDERED: NON-FORMULARY ITEM (Diclofenac Sodium [Diclofenac Sodium] 75 MG) PO SCH (22:00)
[2017-03-22] MEDS ORDERED: NON-FORMULARY ITEM (Pregabalin [Lyrica] 75 MG) PO SCH (22:00)
[2017-03-22] MEDS ORDERED: NON-FORMULARY ITEM (Dextroamphetamine/Amphetamine [Adderall 20 Mg Tablet] 20 MG) PO SCH (22:00)
[2017-03-23] MEDS: FLAGYL 500 MG IVPB 500 MG/100 ML BAG IV SCH ×3 (01:05→12:03)
[2017-03-23] MEDS: Sodium Chloride 0.9% W/ 20 mEq KCl/LITER 1,000 ML IV SCH (05:00)
[2017-03-23 05:34] LABS: BASOPHIL % 0.6 % (0.0-0.4); Eosinophil % 6.5 % (0.00-5.0); Granulocytes % 49.3 % (36.0-66.0); Lymphocytes % 32.4 % (24.0-44.0); Mean Cell Volume 101.4 fl (78-100); Mean Platelet Volume 10.2 fl (6-9.5); Monocytes % 11.2 % (0.0-12.0); Platelet Count 246 K/mm3 (150-450); Red Blood Count 3.45 M/mm3 (4.1-5.4); Red Cell Distribution Width 13.7 % (11.5-14.0); White Blood Count 4.8 K/mm3 (4.0-10.5)
[2017-03-23 05:45] LABS: Mean Corpuscular Hemoglobin 32.4 pg (26-32)
[2017-03-23 06:01] LABS: BLOOD UREA NITROGEN 10 mg/dL (9-20); CHLORIDE 111 mEq/L (98-107); Carbon Dioxide 23.1 mEq/L (21-32); Glucose 91 MG/DL (70-110); Potassium 3.7 mEq/L (3.5-5.1); SODIUM 141 mEq/L (136-145)
[2017-03-23] MEDS: DUONEB 0.5-3 MG/3 ml Neb IH SCH (09:40)
[2017-03-23] MEDS ORDERED: PROPRANOLOL HCL 60 MG PO SCH (10:00)
[2017-03-23] MEDS ORDERED: Levofloxacin 500MG/100ML D5W 500 MG/100 ML BAG IV SCH (10:00)
[2017-03-23] MEDS ORDERED: PROTONIX 40 MG IV IV SCH (10:00)
[2017-03-23] MEDS: Cymbalta 30 MG Capsule PO SCH (10:07)
[2017-03-23] MEDS: Topamax 100 MG PO SCH (10:07)
[2017-03-23] MEDS: Lopressor 50 MG PO SCH (10:07)
[2017-03-23] MEDS: PROPRANOLOL HCL PO SCH (10:09)
[2017-03-23] MEDS: Lyrica 25 MG PO SCH (10:09)
[2017-03-23] MEDS: Lyrica 50MG PO SCH (10:09)
[2017-03-23] MEDS: VOLTAREN 50 MG PO SCH (10:10)
[2017-03-23] MEDS: DILAUDID 2 MG INJECTION IV PRN (10:28)
[2017-03-23] MEDS: Zofran 4 MG/2 ML VIAL IV PRN (10:29)
[2017-03-23] MEDS: TYLENOL 325 MG PO PRN (12:08)
[2017-03-23 12:42] VITALS: BP 124/59; PULSE 64; O2SAT 97
--- NOTE | 2017-03-23 14:01 | PCM.SSS ---
History of Present Illness - Chief Complaint Chief Complaint: c/o diarrhea for 1-2 weeks History of Present Illness: is a 41 year old female.pt states has had loose foul smelling stools for the past week up to 5 times daily. Today is having severe pain in the lower abdomin that radiates into the right thigh. pain is so bad it is causing a headache. denies any recent antibiotic use. - Review of Systems Constitutional: No Fever, No Chills Eyes: No Symptoms Ears, Nose, & Throat: No Symptoms Respiratory: No Cough, No Short Of Breath Cardiac: No Chest Pain, No Edema, No Syncope Abdominal/Gastrointestinal: Diarrhea, No Abdominal Pain, No Nausea, No Vomiting Genitourinary Symptoms: No Dysuria Musculoskeletal: No Back Pain, No Neck Pain Skin: No Rash Neurological: No Dizziness, No Focal Weakness, No Sensory Changes Psychological: No Symptoms Endocrine: No Symptoms Hematologic/Lymphatic: No Symptoms Immunological/Allergic: No Symptoms Medications & Allergies Home Medications: Home Medication List Omeprazole 20 MG [Prilosec 20 mg] 40 mg PO DAILY 05/01/13 [History Confirmed 02/02] Ondansetron HCl [Zofran] 4 mg PO Q8H PRN PRN 12/21/14 [History Confirmed ] Pregabalin [Lyrica] 75 mg PO BID 02/10/16 [History Confirmed 03/22/17] Alprazolam 0.25 mg [xanAX 0.25 MG] 0.25 mg PO TID PRN 10/26/16 [History Confirmed 03/22/17] Dextroamphetamine/Amphetamine [Adderall 20 mg Tablet] 20 mg PO BID 10/26/16 [ History Confirmed 03/22/17] Duloxetine HCl 30 mg [Cymbalta 30 MG Capsule] 90 mg PO DAILY 10/26/16 [ History Confirmed 03/22/17] Topiramate 100 mg [Topamax 100 MG] 100 mg PO BID 10/26/16 [History Confirmed 03/22/17] Trazodone HCl 50 mg [Desyrel 50 mg] 100 mg PO HS 10/26/16 [History Confirmed 03/22/17] Diclofenac Sodium 75 mg PO BID 10/27/16 [History Confirmed 03/22/17] Metoprolol Tartrate 50 mg [Lopressor 50 MG] 50 mg PO BID 10/27/16 [ History Confirmed 03/22/17] Hydrocodone Bit/Acetaminophen [[place] 7.5-325 Tablet] 1 each PO TID 03/22/17 [ History Confirmed 03/22/17] Ipratropium/Albuterol Sulfate [Combivent Respimat Common Canister] 1 puff IH UD 03/22/17 [History Confirmed 03/22/17] Meloxicam 7.5 mg [Mobic 7.5 MG] 7.5 mg PO DAILY 03/22/17 [History Confirmed 03/22/17] Propranolol HCl 60 mg PO DAILY 03/22/17 [History Confirmed 03/22/17] Metronidazole 500 mg Premix [Flagyl 500 mg Ivpb] 500 mg PO TID #15 bag 03/23/17 [Rx] Allergies/Adverse Reactions: Allergies Allergy/AdvReac Type Severity Reaction Status Date / Time Penicillins Allergy Rash Verified 03/22/17 11:32 propoxyphene HCl Allergy PASS OUT Verified 03/22/17 11:32 [From Darvon] - Past Medical History Past Medical History: Yes Neurological History: Seizures ENT History: No Pertinent History Cardiac History: High Cholesterol Respiratory History: COPD Endocrine Medical History: Other Musculoskelatal History: Fibromyalgia GI Medical History: Esophageal Disorder, GERD History: No Pertinent History Pyscho-Social History: Anxiety, Depression, Panic Disorder Reproductive Disorders: Abnormal Uterine Bleeding Comment: lupus, neuropathy. PT STATES "I HAVE NIGHT SEIZURES ALOT" - Female History Hx Last Menstrual Period: ablasion Are you now?: No - Past Surgical History Past Surgical History: Yes Neuro Surgical History: No Pertinent History Cardiac History: No Pertinent History Respiratory Surgery: No Pertinent History GI Surgical History: No Pertinent History Genitourinary Surgical Hx: No Pertinent History Musculskeletal Surgical Hx: Other Female Surgical History: Tubal Ligation, Other Other Surgical History: ABLATION - TUBAL LIGATION. HAS HAD BACK PROCEDURE WHER THEY WENT IN ANDCAUTERZED HER LOWER NERVES. BILATERAL WRIST SURGERY. PLATE AND TWO SCREWS IN THE BACK OF NECK - Social History Smoking Status: Current every day smoker How long have you smoked: 20 years Exposure to second hand smoke: Yes Alcohol: None Drug Use: none - Physical Exam Vital Signs: Vital Signs - 24 hr Temp Pulse Resp BP Pulse Ox 03/23/17 12:00 97.9 F 64 18 124/59 97 03/23/17 09:53 57 L 16 98 03/23/17 06:54 98.3 F 59 L 18 100/65 95 03/23/17 04:10 97.9 F 56 L 16 91/51 96 03/23/17 04:00 98.0 F 66 20 113/54 96 03/22/17 23:41 98.0 F 66 20 113/54 96 03/22/17 20:40 54 L 15 97 03/22/17 19:41 98.1 F 57 L 16 105/50 96 03/22/17 16:34 51 L 14 96 03/22/17 16:00 98.6 F 90 18 169/74 92 L 03/22/17 14:00 98 Oxygen-Last 24 hours O2 Percentage 3 Liters = 32% O2 Percentage 3 Liters = 32% General Appearance: no apparent distress, alert Neurologic Exam: alert, 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, cooperative, normal mood/affect, nml cerebellar function, nml station & gait, sensation nml, No motor deficits Eye Exam: PERRL/EOMI, eyes nml inspection Ears, Nose, Throat Exam: normal ENT inspection, TMs normal, pharynx normal, moist mucous membranes Neck Exam: normal inspection, non-tender, supple, full range of motion Respiratory Exam: normal breath sounds, lungs clear, No respiratory distress Cardiovascular Exam: regular rate/rhythm, normal heart sounds, normal peripheral pulses Gastrointestinal/Abdomen Exam: soft, normal bowel sounds, No tenderness, No mass Back Exam: normal inspection, normal range of motion, No CVA tenderness, No vertebral tenderness Extremity Exam: normal inspection, normal range of motion, pelvis stable Skin Exam: normal color, warm, dry, No rash Lymphatic Exam: No adenopathy Results - Labs Lab/Micro Results: Lab Results-Last 24 Hours 03/22/17 03/23/17 03/23/17 Range/Units 22:19 05:10 05:10 WBC 4.8 (4.0-10.5) K/mm3 RBC 3.45 L (4.1-5.4) M/mm3 Hgb 11.2 L (12.0-16.0) gm/dl Hct 35.0 (35-47) % MCV 101.4 H (78-100) fl MCH 32.4 H (26-32) pg MCHC 32.0 (32-36) g/dl RDW 13.7 (11.5-14.0) % Plt Count 246 (150-450) K/mm3 MPV 10.2 H (6-9.5) fl Gran % 49.3 (36.0-66.0) % Lymphocytes % 32.4 (24.0-44.0) % Monocytes % 11.2 (0.0-12.0) % Eosinophils % 6.5 H (0.00-5.0) % Basophils % 0.6 (0.0-0.4) % Basophils # 0.03 (0-0.4) Sodium 141 (136-145) mEq/L Potassium 3.7 (3.5-5.1) mEq/L Chloride 111 H (98-107) mEq/L Carbon Dioxide 23.1 (21-32) mEq/L Anion Gap 11.0 (5-15) MEQ/L BUN 10 (9-20) mg/dL Creatinine 0.75 (0.55-1.30) mg/dl Estimated GFR > 60 ML/MIN Glucose 91 (70-110) MG/DL Calcium 8.3 L (8.5-10.1) mg/dL Stl C. diff Tox B Gene NEGATIVE (NEGATIVE) C.difficile 027-NAP1-B1 PRESUMPTIVE NEGATIVE (NEGATIVE) - Other Procedures and Tests Respiratory Therapy 03/22/17 16:15 Respiratory MDI UD 03/22/17 16:30 neb [Respiratory Nebulizer] DAILY 03/22/17 16:49 neb [Respiratory Nebulizer] PRN Assessment/Plan (1) Colitis Current Visit: Yes Status: Acute Assessment & Plan: Last Vital Signs Temp 97.9 F 03/23/17 12:00 Pulse 64 03/23/17 12:00 Resp 18 03/23/17 12:00 BP 124/59 03/23/17 12:00 Pulse Ox 97 03/23/17 12:00 Allergies Penicillins Allergy (Verified 03/22/17 11:32) Rash propoxyphene HCl [From Darvon] Allergy (Verified 03/22/17 11:32) PASS OUT Active Medications Acetaminophen (Tylenol 325 Mg) 650 mg PO Q4H PRN PRN PRN Reason: PAIN AND/OR FEVER Stop: 04/21/17 10:40 Last Admin: 03/23/17 12:08 Dose: 650 mg Albuterol/Ipratropium (Duoneb 0.5-3 Mg/3 Ml Neb) 3 ml IH DAILY MINI Stop: 04/21/17 15:29 Last Admin: 03/23/17 09:40 Dose: 3 ml Albuterol/Ipratropium (Duoneb 0.5-3 Mg/3 Ml Neb) 3 ml IH PRN PRN Stop: 04/21/17 15:22 Alprazolam (Xanax 0.25 Mg) 0.25 mg PO TID PRN PRN Reason: ANXIETY Stop: 04/21/17 13:10 Last Admin: 03/22/17 21:45 Dose: 0.25 mg Diclofenac Sodium (Voltaren 50 Mg) 75 mg PO BID [facility] Stop: 04/21/17 21:59 Last Admin: 03/23/17 10:10 Dose: 75 mg Duloxetine HCl (Cymbalta 30 Mg Capsule) 90 mg PO DAILY [facility] Stop: 04/21/17 13:29 Last Admin: 03/23/17 10:07 Dose: 90 mg Hydromorphone HCl (Dilaudid 2 Mg Injection) 1 mg IV Q4H PRN PRN PRN Reason: PAIN Stop: 03/27/17 10:40 Last Admin: 03/23/17 10:28 Dose: 1 mg Levofloxacin/Dextrose (Levofloxacin 500mg/100ml D5w) 500 mg in 100 mls @ 100 mls/hr IV Q24H10 [facility] Stop: 04/22/17 09:59 Last Admin: 03/23/17 10:06 Dose: 100 mls/hr Metronidazole (Flagyl 500 Mg Ivpb) 500 mg in 100 mls @ 100 mls/hr IV Q6HT [facility] Stop: 04/21/17 17:59 Last Admin: 03/23/17 12:03 Dose: 100 mls/hr Potassium Chloride/Sodium Chloride (Sodium Chloride 0.9% W/ 20 Meq Kcl/Liter) 1 ,000 mls @ 100 mls/hr IV .Q10H [facility] Stop: 04/21/17 10:44 Last Admin: 03/23/17 05:00 Dose: 100 mls/hr Metoprolol Tartrate (Lopressor 50 Mg) 50 mg PO BID [facility] Stop: 04/21/17 14:44 Last Admin: 03/23/17 10:07 Dose: 50 mg Nicotine (Nicoderm Cq 21 Mg) 21 mg TOP Q24H [facility] Stop: 04/21/17 14:59 Last Admin: 03/22/17 16:02 Dose: 21 mg Non-Formulary Drug 1 Each Each ( Propranolol [place] 60mg) 0 mg PO DAILY [facility] Stop: 04/21/17 13:29 Last Admin: 03/23/17 10:09 Dose: Not Given Ondansetron HCl (Zofran 4 Mg/2 Ml Vial) 4 mg IV Q6H PRN PRN PRN Reason: NAUSEA/VOMITING Stop: 04/21/17 10:40 Last Admin: 03/22/17 17:13 Dose: 4 mg Ondansetron HCl (Zofran 4 Mg/2 Ml Vial) 4 mg IV Q4H PRN PRN PRN Reason: NAUSEA/VOMITING Stop: 04/21/17 14:44 Last Admin: 03/23/17 10:29 Dose: 4 mg Pantoprazole Sodium (Protonix 40 Mg Iv) 40 mg IV Q24H [facility] Stop: 04/22/17 09:59 Last Admin: 03/23/17 10:07 Dose: 40 mg Pregabalin (Lyrica 50mg) 50 mg PO BID [facility] Stop: 04/21/17 13:29 Last Admin: 03/23/17 10:09 Dose: Not Given Pregabalin (Lyrica 25 Mg) 25 mg PO BID [facility] Stop: 04/21/17 13:29 Last Admin: 03/23/17 10:09 Dose: Not Given Topiramate (Topamax 100 Mg) 100 mg PO BID [facility] Stop: 04/21/17 13:29 Last Admin: 03/23/17 10:07 Dose: 100 mg Trazodone HCl (Desyrel 50 Mg) 100 mg PO HS [facility] Stop: 04/21/17 21:59 Last Admin: 03/22/17 21:50 Dose: Not Given Intake & Output 03/23/17 03/24/17 11:59 11:59 Intake Total 4139 680 Output Total 500 Balance 3639 680 Weight 94.03 kg Orders 03/23/17 Lunch Soft Diet Lab Tests 03/22/17 03/23/17 03/23/17 22:19 05:10 05:10 WBC 4.8 RBC 3.45 L Hgb 11.2 L Hct 35.0 MCV 101.4 H MCH 32.4 H MCHC 32.0 RDW 13.7 Plt Count 246 MPV 10.2 H Gran % 49.3 Lymphocytes % 32.4 Monocytes % 11.2 Eosinophils % 6.5 H Basophils % 0.6 Basophils # 0.03 Sodium 141 Potassium 3.7 Chloride 111 H Carbon Dioxide 23.1 Anion Gap 11.0 BUN 10 Creatinine 0.75 Estimated GFR > 60 Glucose 91 Calcium 8.3 L Stl C. diff Tox B Gene NEGATIVE C.difficile 027-NAP1-B1 PRESUMPTIVE NEGATIVE Microbiology 03/22/17 08:30 Urine, Void - Preliminary GRAM NEGATIVE ID AND SENSITIVITY PENDING 03/22/17 08:41 Blood Blood Culture - Preliminary NO GROWTH TO DATE 03/22/17 08:30 Blood Blood Culture - Preliminary NO GROWTH TO DATE patient is admitted, IV fluid started, IV abx started, Patient is feeling better , will d/c her home today Code(s): K52.9 - NONINFECTIVE GASTROENTERITIS AND COLITIS, UNSPECIFIED (2) Diarrhea Current Visit: No Status: Acute Qualifiers: Diarrhea type: unspecified type Qualified Code(s): R19.7 - Diarrhea, unspecified Code(s): R19.7 - DIARRHEA, UNSPECIFIED Hospital Summary - Hospital Course Hospital Course: Last Vital Signs Temp 97.9 F 03/23/17 12:00 Pulse 64 03/23/17 12:00 Resp 18 03/23/17 12:00 BP 124/59 03/23/17 12:00 Pulse Ox 97 03/23/17 12:00 Allergies Penicillins Allergy (Verified 03/22/17 11:32) Rash propoxyphene HCl [From Darvon] Allergy (Verified 03/22/17 11:32) PASS OUT Active Medications Acetaminophen (Tylenol 325 Mg) 650 mg PO Q4H PRN PRN PRN Reason: PAIN AND/OR FEVER Stop: 04/21/17 10:40 Last Admin: 03/23/17 12:08 Dose: 650 mg Albuterol/Ipratropium (Duoneb 0.5-3 Mg/3 Ml Neb) 3 ml IH DAILY [facility] Stop: 04/21/17 15:29 Last Admin: 03/23/17 09:40 Dose: 3 ml Albuterol/Ipratropium (Duoneb 0.5-3 Mg/3 Ml Neb) 3 ml IH PRN PRN Stop: 04/21/17 15:22 Alprazolam (Xanax 0.25 Mg) 0.25 mg PO TID PRN PRN Reason: ANXIETY Stop: 04/21/17 13:10 Last Admin: 03/22/17 21:45 Dose: 0.25 mg Diclofenac Sodium (Voltaren 50 Mg) 75 mg PO BID [facility] Stop: 04/21/17 21:59 Last Admin: 03/23/17 10:10 Dose: 75 mg Duloxetine HCl (Cymbalta 30 Mg Capsule) 90 mg PO DAILY [facility] Stop: 04/21/17 13:29 Last Admin: 03/23/17 10:07 Dose: 90 mg Hydromorphone HCl (Dilaudid 2 Mg Injection) 1 mg IV Q4H PRN PRN PRN Reason: PAIN Stop: 03/27/17 10:40 Last Admin: 03/23/17 10:28 Dose: 1 mg Levofloxacin/Dextrose (Levofloxacin 500mg/100ml D5w) 500 mg in 100 mls @ 100 mls/hr IV Q24H10 [facility] Stop: 04/22/17 09:59 Last Admin: 03/23/17 10:06 Dose: 100 mls/hr Metronidazole (Flagyl 500 Mg Ivpb) 500 mg in 100 mls @ 100 mls/hr IV Q6HT [facility] Stop: 04/21/17 17:59 Last Admin: 03/23/17 12:03 Dose: 100 mls/hr Potassium Chloride/Sodium Chloride (Sodium Chloride 0.9% W/ 20 Meq Kcl/Liter) 1 ,000 mls @ 100 mls/hr IV .Q10H [facility] Stop: 04/21/17 10:44 Last Admin: 03/23/17 05:00 Dose: 100 mls/hr Metoprolol Tartrate (Lopressor 50 Mg) 50 mg PO BID [facility] Stop: 04/21/17 14:44 Last Admin: 03/23/17 10:07 Dose: 50 mg Nicotine (Nicoderm Cq 21 Mg) 21 mg TOP Q24H [facility] Stop: 04/21/17 14:59 Last Admin: 03/22/17 16:02 Dose: 21 mg Non-Formulary Drug 1 Each Each ( Propranolol [place] 60mg) 0 mg PO DAILY [facility] Stop: 04/21/17 13:29 Last Admin: 03/23/17 10:09 Dose: Not Given Ondansetron HCl (Zofran 4 Mg/2 Ml Vial) 4 mg IV Q6H PRN PRN PRN Reason: NAUSEA/VOMITING Stop: 04/21/17 10:40 Last Admin: 03/22/17 17:13 Dose: 4 mg Ondansetron HCl (Zofran 4 Mg/2 Ml Vial) 4 mg IV Q4H PRN PRN PRN Reason: NAUSEA/VOMITING Stop: 04/21/17 14:44 Last Admin: 03/23/17 10:29 Dose: 4 mg Pantoprazole Sodium (Protonix 40 Mg Iv) 40 mg IV Q24H [facility] Stop: 04/22/17 09:59 Last Admin: 03/23/17 10:07 Dose: 40 mg Pregabalin (Lyrica 50mg) 50 mg PO BID [facility] Stop: 04/21/17 13:29 Last Admin: 03/23/17 10:09 Dose: Not Given Pregabalin (Lyrica 25 Mg) 25 mg PO BID [facility] Stop: 04/21/17 13:29 Last Admin: 03/23/17 10:09 Dose: Not Given Topiramate (Topamax 100 Mg) 100 mg PO BID [facility] Stop: 04/21/17 13:29 Last Admin: 03/23/17 10:07 Dose: 100 mg Trazodone HCl (Desyrel 50 Mg) 100 mg PO HS [facility] Stop: 04/21/17 21:59 Last Admin: 03/22/17 21:50 Dose: Not Given Intake & Output 03/23/17 03/24/17 11:59 11:59 Intake Total 4139 680 Output Total 500 Balance 3639 680 Weight 94.03 kg Orders 03/23/17 Lunch Soft Diet Lab Tests 03/22/17 03/23/17 03/23/17 22:19 05:10 05:10 WBC 4.8 RBC 3.45 L Hgb 11.2 L Hct 35.0 MCV 101.4 H MCH 32.4 H MCHC 32.0 RDW 13.7 Plt Count 246 MPV 10.2 H Gran % 49.3 Lymphocytes % 32.4 Monocytes % 11.2 Eosinophils % 6.5 H Basophils % 0.6 Basophils # 0.03 Sodium 141 Potassium 3.7 Chloride 111 H Carbon Dioxide 23.1 Anion Gap 11.0 BUN 10 Creatinine 0.75 Estimated GFR > 60 Glucose 91 Calcium 8.3 L Stl C. diff Tox B Gene NEGATIVE C.difficile 027-NAP1-B1 PRESUMPTIVE NEGATIVE Microbiology 03/22/17 08:30 Urine, Void - Preliminary GRAM NEGATIVE ID AND SENSITIVITY PENDING 03/22/17 08:41 Blood Blood Culture - Preliminary NO GROWTH TO DATE 03/22/17 08:30 Blood Blood Culture - Preliminary NO GROWTH TO DATE - Vitals & Intake/Output Vital Signs: Vital Signs Temperature 97.9 F 03/23/17 12:00 Pulse Rate 64 03/23/17 12:00 Respiratory Rate 18 03/23/17 12:00 Blood Pressure 124/59 03/23/17 12:00 O2 Sat by Pulse Oximetry 97 03/23/17 12:00 Oxygen-Last Documented O2 Percentage 3 Liters = 32% Intake & Output: Intake & Output 03/21/17 03/22/17 03/23/17 03/24/17 11:59 11:59 11:59 11:59 Intake Total 4139 680 Output Total 500 Balance 3639 680 Weight 94.03 kg - Lab Result Diagrams: 03/23/17 05:10 03/23/17 05:10 Lab Results-Last 24 Hrs: Lab Results-Last 24 Hours 03/22/17 03/23/17 03/23/17 Range/Units 22:19 05:10 05:10 WBC 4.8 (4.0-10.5) K/mm3 RBC 3.45 L (4.1-5.4) M/mm3 Hgb 11.2 L (12.0-16.0) gm/dl Hct 35.0 (35-47) % MCV 101.4 H (78-100) fl MCH 32.4 H (26-32) pg MCHC 32.0 (32-36) g/dl RDW 13.7 (11.5-14.0) % Plt Count 246 (150-450) K/mm3 MPV 10.2 H (6-9.5) fl Gran % 49.3 (36.0-66.0) % Lymphocytes % 32.4 (24.0-44.0) % Monocytes % 11.2 (0.0-12.0) % Eosinophils % 6.5 H (0.00-5.0) % Basophils % 0.6 (0.0-0.4) % Basophils # 0.03 (0-0.4) Sodium 141 (136-145) mEq/L Potassium 3.7 (3.5-5.1) mEq/L Chloride 111 H (98-107) mEq/L Carbon Dioxide 23.1 (21-32) mEq/L Anion Gap 11.0 (5-15) MEQ/L BUN 10 (9-20) mg/dL Creatinine 0.75 (0.55-1.30) mg/dl Estimated GFR > 60 ML/MIN Glucose 91 (70-110) MG/DL Calcium 8.3 L (8.5-10.1) mg/dL Stl C. diff Tox B Gene NEGATIVE (NEGATIVE) C.difficile 027-NAP1-B1 PRESUMPTIVE NEGATIVE (NEGATIVE) - Procedures and Test Procedures and Tests throughout Hospitalization: Therapy Orders & Screens 03/22/17 12:52 Smoking Cessation Education ONCE Comment: Diagnosis: cholitis Smoking Status: Current every day smoker How long have you smoked: 20 years Have you smoked in the past 12 months: Yes Approximately how many cigarettes per day: 1/2 pack Do you dip or chew tobacco: No 03/22/17 16:15 Respiratory MDI UD Comment: Diagnosis: cholitis 03/22/17 16:30 neb [Respiratory Nebulizer] DAILY Comment: Diagnosis: cholitis 03/22/17 16:49 neb [Respiratory Nebulizer] PRN Comment: Diagnosis: cholitis - Discharge Discharge Date: 03/23/17 Disposition: Home, Self-Care Condition: Stable Prescriptions: New Metronidazole 500 mg Premix [Flagyl 500 mg Ivpb] 500 mg PO TID #15 bag No Action Omeprazole 20 MG [Prilosec 20 mg] 40 mg PO DAILY Ondansetron HCl [Zofran] 4 mg PO Q8H PRN PRN PRN Reason: nausea Pregabalin [Lyrica] 75 mg PO BID Dextroamphetamine/Amphetamine [Adderall 20 mg Tablet] 20 mg PO BID Alprazolam 0.25 mg [xanAX 0.25 MG] 0.25 mg PO TID PRN PRN Reason: Anxiety Duloxetine HCl 30 mg [Cymbalta 30 MG Capsule] 90 mg PO DAILY Topiramate 100 mg [Topamax 100 MG] 100 mg PO BID Trazodone HCl 50 mg [Desyrel 50 mg] 100 mg PO HS Diclofenac Sodium 75 mg PO BID Metoprolol Tartrate 50 mg [Lopressor 50 MG] 50 mg PO BID Hydrocodone Bit/Acetaminophen [[place] 7.5-325 Tablet] 1 each PO TID Meloxicam 7.5 mg [Mobic 7.5 MG] 7.5 mg PO DAILY Propranolol HCl 60 mg PO DAILY Ipratropium/Albuterol Sulfate [Combivent Respimat Common Canister] 1 puff IH UD Instructions: Ulcerative Colitis Follow up with: PATRICIA CHEN [Primary Care Provider] - 03/31/17 11:30 am Forms: Discharge Instructions
[2017-03-24 14:46] LABS: Giardia Antigen EIA Negative (Negative)
== END 2017-03-23 14:39 | disposition home or self-care (01) ==
LOC: ED 07:44 → MED SURG 11:05
PROVIDERS: ADMIT General Practice; ATTEND General Practice
DX: K52.9 Noninfective gastroenteritis and colitis, unspecified (principal); J44.9 Chronic obstructive pulmonary disease, unspecified; G40.909 Epilepsy, unspecified, not intractable, without status epilepticus; E78.00 Pure hypercholesterolemia, unspecified; M79.7 Fibromyalgia; K21.9 Gastro-esophageal reflux disease without esophagitis; F41.8 Other specified anxiety disorders; G62.9 Polyneuropathy, unspecified; Z79.899 Other long term (current) drug therapy
CPT/HCPCS: 36000; 36415; 74177; 80048; 80053; 81000; 82150; 83690; 85025; 87040; 87045; 87046; 87077; 87086; 87177; 87186; 87209; 87335; 87493; 93268; 94640; 94760; 96360; 96361; 96365; 96374; 96375; 99285; G0378; J1170; J1956; J2405; A9270-GY

== ENCOUNTER 2017-06-14 15:52 | Emergency (ER) | payer OTHER ==
[2017-06-14 16:07] VITALS: O2SAT 98
[2017-06-14] MEDS ORDERED: TORAdol 30 mg Injection IM ONE (16:19)
[2017-06-14] MEDS ORDERED: Norflex 60 MG/2 ML IM ONE (16:20)
[2017-06-14] MEDS ORDERED: Norflex 60 MG/2 ML ONE (16:23)
[2017-06-14] MEDS ORDERED: TORAdol 30 mg Injection ONE (16:23)
--- NOTE | 2017-06-14 16:23 | ERPHSYRPT ---
- History of Present Illness Time Seen by Provider: 06/14/17 16:20 Source: patient Exam Limitations: no limitations Patient Subjective Stated Complaint: pt states she has had right lower back and hip pain for the past several days. states she seen family dr this past week for same pain. Triage Nursing Assessment: pt pink, warm, dry. pt ambulted into ER without difficulty. no deformity noted. Physician History: pt states she has had right lower back and hip pain for the past several days. states she seen family dr this past week for same pain. Timing/Duration: day(s) Method of Injury: unknown Quality: burning Back Pain Location: lumbar spine Back Pain Radiation: lower legs Severity of Pain-Max: moderate Severity of Pain-Current: moderate Modifying Factors: Improves With: nothing Associated Symptoms: lower back pain, No numbness in legs/feet, No weakness, No sensory/motor loss, No tingling in legs/feet Previous symptoms: same symptoms as today Allergies/Adverse Reactions: Penicillins Allergy (Verified 06/14/17 16:08) Rash propoxyphene HCl [From Darvon] Allergy (Verified 06/14/17 16:08) PASS OUT Home Medications: Omeprazole 20 MG [Prilosec 20 mg] 40 mg PO DAILY 05/01/13 [History] Ondansetron HCl [Zofran] 4 mg PO Q8H PRN PRN 12/21/14 [History] Pregabalin [Lyrica] 75 mg PO BID 02/10/16 [History] Alprazolam 0.25 mg [xanAX 0.25 MG] 0.25 mg PO TID PRN 10/26/16 [History] Dextroamphetamine/Amphetamine [Adderall 20 mg Tablet] 20 mg PO BID 10/26/16 [ History] Duloxetine HCl 30 mg [Cymbalta 30 MG Capsule] 90 mg PO DAILY 10/26/16 [ History] Topiramate 100 mg [Topamax 100 MG] 100 mg PO BID 10/26/16 [History] Trazodone HCl 50 mg [Desyrel 50 mg] 100 mg PO HS 10/26/16 [History] Diclofenac Sodium 75 mg PO BID 10/27/16 [History] Metoprolol Tartrate 50 mg [Lopressor 50 MG] 50 mg PO BID 10/27/16 [History ] Hydrocodone Bit/Acetaminophen [[place] 7.5-325 Tablet] 1 each PO TID 03/22/17 [ History] Ipratropium/Albuterol Sulfate [Combivent Respimat Common Canister] 1 puff IH UD 03/22/17 [History] Meloxicam 7.5 mg [Mobic 7.5 MG] 7.5 mg PO DAILY 03/22/17 [History] Propranolol HCl 60 mg PO DAILY 03/22/17 [History] Hx Tetanus, Diphtheria Vaccination/Date Given: Yes (up to date) Hx Influenza Vaccination/Date Given: No Hx Pneumococcal Vaccination/Date Given: No Immunizations Up to Date: Yes - Review of Systems Constitutional: No Symptoms Respiratory: No Symptoms Cardiac: No Symptoms Abdominal/Gastrointestinal: No Symptoms Musculoskeletal: Back Pain, No Fall Neurological: No Symptoms - Past Medical History Pertinent Past Medical History: Yes Neurological History: Seizures ENT History: No Pertinent History Cardiac History: High Cholesterol Respiratory History: COPD Endocrine Medical History: Other Musculoskeletal History: Fibromyalgia GI Medical History: Esophageal Disorder, GERD History: No Pertinent History Psycho-Social History: Anxiety, Depression, Panic Disorder Female Reproductive Disorders: Abnormal Uterine Bleeding Other Medical History: lupus, neuropathy. PT STATES "I HAVE NIGHT SEIZURES ALOT " - Past Surgical History Past Surgical History: Yes Neuro Surgical History: No Pertinent History Cardiac: No Pertinent History Respiratory: No Pertinent History Gastrointestinal: No Pertinent History Genitourinary: No Pertinent History Musculoskeletal: Other Female Surgical History: Tubal Ligation, Other Other Surgical History: ABLATION - TUBAL LIGATION. HAS HAD BACK PROCEDURE WHER THEY WENT IN ANDCAUTERZED HER LOWER NERVES. BILATERAL WRIST SURGERY. PLATE AND TWO SCREWS IN THE BACK OF NECK - Social History Smoking Status: Current every day smoker How long have you smoked: 20 Exposure to second hand smoke: Yes Drug Use: none Patient Lives Alone: No - Female History Hx Now: No - Nursing Vital Signs Nursing Vital Signs: Initial Vital Signs Temperature 98.4 F 06/14/17 16:03 Pulse Rate 82 06/14/17 16:03 Respiratory Rate 18 06/14/17 16:03 Blood Pressure 117/72 06/14/17 16:03 O2 Sat by Pulse Oximetry 98 06/14/17 16:03 Pain Scale Pain Intensity 6 - Physical Exam General Appearance: no apparent distress Eye Exam: PERRL/EOMI Ears, Nose, Throat Exam: normal ENT inspection Neck Exam: normal inspection Respiratory Exam: normal breath sounds Cardiovascular Exam: regular rate/rhythm Gastrointestinal Exam: soft Back Exam: decreased range of motion, muscle spasm, No CVA tenderness, No vertebral tenderness, No point tenderness Extremity Exam: normal inspection, normal range of motion Neurologic Exam: alert, 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, cooperative, nml cerebellar function, sensation nml, No motor deficits, No sensory deficit Skin Exam: normal color Lymphatic Exam: No adenopathy SpO2 Interpretation: normal SpO2: 98 Oxygen Delivery: Room Air - Course Nursing assessment & vital signs reviewed: Yes Ordered Tests: Active Orders 24 hr Category Date Time Status CULTURE,URINE Stat Lab 06/14/17 16:19 Received UA W/ MICROSCOPIC Stat Lab 06/14/17 16:19 Completed Urine Triage Profile Stat Lab 06/14/17 16:19 Completed Medication Summary Discontinued Medications Generic Name Dose Route Start Last Admin Trade Name Manish PRN Reason Stop Dose Admin Ketorolac Tromethamine 60 mg 06/14/17 16:19 06/14/17 16:25 Toradol 30 Mg Injection IM 06/14/17 16:20 60 mg STAT ONE Administration Ketorolac Tromethamine Confirm 06/14/17 16:23 Toradol 30 Mg Injection Administered 06/14/17 16:24 Dose 60 mg .ROUTE .STK-MED ONE Orphenadrine Citrate 60 mg 06/14/17 16:20 06/14/17 16:25 Norflex 60 Mg/2 Ml IM 06/14/17 16:21 60 mg STAT ONE Administration Orphenadrine Citrate Confirm 06/14/17 16:23 Norflex 60 Mg/2 Ml Administered 06/14/17 16:24 Dose 60 mg .ROUTE .STK-MED ONE Lab/Rad Data: Laboratory Results 06/14/17 06/14/17 Range/Units 16:19 16:19 Ur Collection Type VOID Urine Color YELLOW (YELLOW) Urine Appearance HAZY (CLEAR) Urine pH 7.0 (5-6) Ur Specific [place] 1.010 (1.005-1.025) Urine Protein NEGATIVE (Negative) Urine Ketones NEGATIVE (NEGATIVE) Urine Blood 50 (0-5) Ross/ul Urine Nitrite NEGATIVE (NEGATIVE) Urine Bilirubin NEGATIVE (NEGATIVE) Urine Urobilinogen NORMAL (0-1) mg/dL Ur Leukocyte Esterase TRACE (NEGATIVE) Urine Microscopic RBC 2-5 (0-2) /HPF Urine Microscopic WBC 2-5 (0-5) /HPF Ur Epithelial Cells MODERATE (FEW) /HPF Amorphous Crystals MODERATE (NEGATIVE) /HPF Urine Bacteria MODERATE (NEGATIVE) /HPF Urine Glucose NEGATIVE (NEGATIVE) mg/dL Urine Opiates Level NEG. (NEGATIVE) Ur Methadone NEG. (NEGATIVE) Urine Barbiturates NEG. (NEGATIVE) Ur Phencyclidine (PCP) NEG. (NEGATIVE) Urine Amphetamine NEG. (NEGATIVE) U Benzodiazepine Level NEG. (NEGATIVE) Urine Cocaine NEG. (NEGATIVE) Urine Marijuana (THC) NEG. (NEGATIVE) Specimen Received 06/14/17 1630 - Progress Progress: improved Counseled pt/family regarding: lab results, diagnosis, need for follow-up - Departure Time of Disposition: 17:24 Departure Disposition: Home Clinical Impression: Sciatic neuralgia Qualifiers: Laterality: right Qualified Code(s): M54.31 - Sciatica, right side Condition: Stable Critical Care Time: No Referrals: PATRICIA CHEN [Primary Care Provider] - Instructions: Back Pain With Sciatica Additional Instructions: Please follow the instructions given to you. Please take your medication as prescribed if given. If symptoms recur or get worse, come back to the emergency room if you cannot reach your primary care physician, or call your primary care physician for an appointment. Again if your symptoms get worse, come back to the emergency room. Thanks for visiting emergency room, and let us take care of you.
[2017-06-14 16:47] LABS: ADD URINE CULTURE? YES (NO); Bacteria MODERATE /HPF (NEGATIVE); Bilirubin NEGATIVE (NEGATIVE); Blood 50 Ery/ul (0-5); COMPLETE URINE MICROSCOPIC? YES; Collection Type VOID; Epithelial Cells MODERATE /HPF (FEW); Glucose NEGATIVE (NEGATIVE); Leukocyte Esterase TRACE (NEGATIVE)
[2017-06-14 17:17] VITALS: BP 121/72; PULSE 73
== END 2017-06-14 17:41 | disposition home or self-care (01) ==
LOC: ED 15:52
DX: M54.31 Sciatica, right side (principal); M54.5 Low back pain; M25.551 Pain in right hip; Z79.899 Other long term (current) drug therapy; E78.00 Pure hypercholesterolemia, unspecified; F41.9 Anxiety disorder, unspecified
CPT/HCPCS: 80307; 81000; 87077; 87086; 87186; 96372; 99284; J1885; J2360

== ENCOUNTER 2017-08-16 16:01 | Emergency (ER) | payer OTHER ==
[2017-08-16] MEDS ORDERED: Norflex 60 MG/2 ML IM ONE (16:22)
[2017-08-16] MEDS ORDERED: TORAdol 30 mg Injection IM ONE (16:22)
[2017-08-16] MEDS ORDERED: BENADRYL 50 MG/ML IM ONE (16:23)
[2017-08-16] MEDS ORDERED: TORAdol 30 mg Injection ONE (16:26)
[2017-08-16] MEDS ORDERED: BENADRYL 50 MG/ML ONE (16:26)
[2017-08-16] MEDS ORDERED: Norflex 60 MG/2 ML ONE (16:27)
--- NOTE | 2017-08-16 16:27 | ERPHSYRPT ---
- History of Present Illness Time Seen by Provider: 08/16/17 16:23 Source: patient Exam Limitations: no limitations Patient Subjective Stated Complaint: here for a migraine headache since last night, pt states the side of her mouth and neck hurt, pt has a cavity that has folowen out of tooth Triage Nursing Assessment: pt walked in, resp easy,skin w/d pink, alert, pulips equal, moves al l ext well Physician History: here for a migraine headache since last night, pt states the side of her mouth and neck hurt, no nausea, vomiting Timing/Duration: yesterday Quality: aching Head Pain Location: frontal Severity of Pain-Max: moderate Severity of Pain-Current: severe Recent Head Trauma: frequent headaches Modifying Factors: Improves With: exposure to light Associated Symptoms: denies symptoms Allergies/Adverse Reactions: Penicillins Allergy (Verified 08/16/17 16:14) Rash propoxyphene HCl [From Darvon] Allergy (Verified 08/16/17 16:14) PASS OUT Home Medications: Omeprazole 20 MG [Prilosec 20 mg] 40 mg PO DAILY 05/01/13 [History] Ondansetron HCl [Zofran] 4 mg PO Q8H PRN PRN 12/21/14 [History] Pregabalin [Lyrica] 75 mg PO BID 02/10/16 [History] Alprazolam 0.25 mg [xanAX 0.25 MG] 0.25 mg PO TID PRN 10/26/16 [History] Dextroamphetamine/Amphetamine [Adderall 20 mg Tablet] 20 mg PO BID 10/26/16 [ History] Duloxetine HCl 30 mg [Cymbalta 30 MG Capsule] 90 mg PO DAILY 10/26/16 [ History] Topiramate 100 mg [Topamax 100 MG] 100 mg PO BID 10/26/16 [History] Trazodone HCl 50 mg [Desyrel 50 mg] 100 mg PO HS 10/26/16 [History] Diclofenac Sodium 75 mg PO BID 10/27/16 [History] Metoprolol Tartrate 50 mg [Lopressor 50 MG] 50 mg PO BID 10/27/16 [History ] Hydrocodone Bit/Acetaminophen [[place] 7.5-325 Tablet] 1 each PO TID 03/22/17 [ History] Ipratropium/Albuterol Sulfate [Combivent Respimat Common Canister] 1 puff IH UD 03/22/17 [History] Meloxicam 7.5 mg [Mobic 7.5 MG] 7.5 mg PO DAILY 03/22/17 [History] Hx Tetanus, Diphtheria Vaccination/Date Given: Yes (up to date) Hx Influenza Vaccination/Date Given: No Hx Pneumococcal Vaccination/Date Given: No Immunizations Up to Date: Yes - Review of Systems Constitutional: No Fever, No Chills Eyes: No Symptoms Ears, Nose, & Throat: No Symptoms Respiratory: No Cough, No Dyspnea Cardiac: No Chest Pain, No Edema, No Syncope Abdominal/Gastrointestinal: No Abdominal Pain, No Nausea, No Vomiting, No Diarrhea Genitourinary Symptoms: No Dysuria Musculoskeletal: No Back Pain, No Neck Pain Skin: No Rash Neurological: Headache, No Dizziness, No Focal Weakness, No Sensory Changes Psychological: No Symptoms Endocrine: No Symptoms All Other Systems: Reviewed and Negative - Past Medical History Pertinent Past Medical History: Yes Neurological History: Seizures ENT History: No Pertinent History Cardiac History: High Cholesterol Respiratory History: COPD Endocrine Medical History: Other Musculoskeletal History: Fibromyalgia GI Medical History: Esophageal Disorder, GERD History: No Pertinent History Psycho-Social History: Anxiety, Depression, Panic Disorder Female Reproductive Disorders: Abnormal Uterine Bleeding Other Medical History: lupus, neuropathy. PT STATES "I HAVE NIGHT SEIZURES ALOT " - Past Surgical History Past Surgical History: Yes Neuro Surgical History: No Pertinent History Cardiac: No Pertinent History Respiratory: No Pertinent History Gastrointestinal: No Pertinent History Genitourinary: No Pertinent History Musculoskeletal: Other Female Surgical History: Tubal Ligation, Other Other Surgical History: ABLATION - TUBAL LIGATION. HAS HAD BACK PROCEDURE WHER THEY WENT IN ANDCAUTERZED HER LOWER NERVES. BILATERAL WRIST SURGERY. PLATE AND TWO SCREWS IN THE BACK OF NECK - Social History Smoking Status: Current every day smoker How long have you smoked: 20 Exposure to second hand smoke: Yes Drug Use: none Patient Lives Alone: No - Female History Hx Last Menstrual Period: 10yrs ago Hx Now: No - Nursing Vital Signs Nursing Vital Signs: Initial Vital Signs Temperature 97.8 F 08/16/17 16:10 Pulse Rate 87 08/16/17 16:10 Respiratory Rate 18 08/16/17 16:10 Blood Pressure 153/110 08/16/17 16:10 O2 Sat by Pulse Oximetry 98 08/16/17 16:10 Pain Scale Pain Intensity 9 - Physical Exam General Appearance: no apparent distress Eye Exam: PERRL/EOMI Ears, Nose, Throat Exam: normal ENT inspection, moist mucous membranes Neck Exam: normal inspection, supple, full range of motion, No meningismus Respiratory Exam: normal breath sounds, lungs clear Cardiovascular Exam: regular rate/rhythm, normal heart sounds Gastrointestinal/Abdominal Exam: soft, No tenderness, No distention Back Exam: normal inspection, normal range of motion Mental Status Exam: alert, 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, cooperative meter attendant Exam: normal speech, PERRL, No facial droop Coordination/Gait Exam: normal cerebellar function Motor/Sensory Exam: no motor deficit, no sensory deficit Skin Exam: normal color, warm, dry, No rash SpO2: 98 Oxygen Delivery: Room Air - Course Nursing assessment & vital signs reviewed: Yes Ordered Tests: Medication Summary Generic Name Dose Route Start Last Admin Trade Name Manish PRN Reason Stop Dose Admin Diphenhydramine HCl 50 mg 08/16/17 16:23 Benadryl 50 Mg/Ml IM 08/16/17 16:24 STAT ONE Ketorolac Tromethamine 60 mg 08/16/17 16:22 Toradol 30 Mg Injection IM 08/16/17 16:23 STAT ONE Orphenadrine Citrate 60 mg 08/16/17 16:22 Norflex 60 Mg/2 Ml IM 08/16/17 16:23 STAT ONE - Progress Progress: improved Air Movement: good Counseled pt/family regarding: diagnosis, need for follow-up - Departure Time of Disposition: 16:25 Departure Disposition: Home Clinical Impression: Migraine headache without aura Qualifiers: Status migrainosus presence: without status migrainosus Intractability: intractable Qualified Code(s): G43.019 - Migraine without aura, intractable, without status migrainosus Condition: Stable Critical Care Time: No Referrals: PATRICIA CHEN [Primary Care Provider] - Instructions: Headache, Migraine Additional Instructions: HEADACHE 1. After discharge from the emergency department, you should rest at home in a cool, dark, quiet place for 12-24 hours. 2. If any of the following signs or symptoms are noticed, you should be re- evaluated right away: A. Visual changes B. Stiff Neck C. Change in quality or location of pain D. Fever E. Recurrent vomiting 3. If pain medications were prescribed or given, they may cause drowsiness. Please follow the instructions given to you. Please take your medication as prescribed if given. If symptoms recur or get worse, come back to the emergency room if you cannot reach your primary care physician, or call your primary care physician for an appointment. Again if your symptoms get worse, come back to the emergency room. Thanks for visiting emergency room, and let us take care of you. Prescriptions: Naproxen 375 mg [Naprosyn 375 mg] 375 mg PO Q8H #30 tablet Orphenadrine Citrate 100 mg [Norflex 100 MG Tablet] 100 mg PO BID #20 tab
[2017-08-16 17:14] VITALS: BP 125/71; PULSE 72; O2SAT 97
== END 2017-08-16 17:16 | disposition home or self-care (01) ==
LOC: ED 16:01
DX: G43.019 Migraine without aura, intractable, without status migrainosus (principal)
CPT/HCPCS: 96372; 99284; J1200; J1885; J2360

== ENCOUNTER 2017-08-30 11:10 | Emergency (ER) | payer OTHER ==
[2017-08-30] MEDS ORDERED: TORAdol 30 mg Injection IM ONE (11:41)
[2017-08-30] MEDS ORDERED: NALBUPHINE HCL 10 MG/1 ML INJECTION IM ONE (11:41)
[2017-08-30 11:43] VITALS: BP 120/67; O2SAT 98
[2017-08-30] MEDS ORDERED: TORAdol 30 mg Injection ONE (11:45)
--- NOTE | 2017-08-30 11:49 | ERPHSYRPT ---
- History of Present Illness Time Seen by Provider: 08/30/17 11:45 Source: patient Exam Limitations: no limitations Patient Subjective Stated Complaint: PT HERE FOR A BROKEN TOOTH TO UPPER RIGHT , HAS APT ON THURSDAY WITH A DENTIST, IS ON ANTIBOTICS Triage Nursing Assessment: PT HAS BROKEN TOOTH TO UPPER RIGHT JAW, NO BLEEDING NOTED Physician History: 41 years old female came to ER with c/o right upper molar broken tooth Timing/Duration: day(s) Severity: moderate Modifying Factors: Improves With: other (tried dental filling at home) Allergies/Adverse Reactions: Penicillins Allergy (Verified 08/16/17 16:14) Rash propoxyphene HCl [From Darvon] Allergy (Verified 08/16/17 16:14) PASS OUT Home Medications: Omeprazole 20 MG [Prilosec 20 mg] 40 mg PO DAILY 05/01/13 [History] Pregabalin [Lyrica] 75 mg PO BID 02/10/16 [History] Alprazolam 0.25 mg [xanAX 0.25 MG] 0.25 mg PO TID PRN 10/26/16 [History] Dextroamphetamine/Amphetamine [Adderall 20 mg Tablet] 20 mg PO BID 10/26/16 [ History] Duloxetine HCl 30 mg [Cymbalta 30 MG Capsule] 90 mg PO DAILY 10/26/16 [ History] Topiramate 100 mg [Topamax 100 MG] 100 mg PO BID 10/26/16 [History] Trazodone HCl 50 mg [Desyrel 50 mg] 100 mg PO HS 10/26/16 [History] Diclofenac Sodium 75 mg PO BID 10/27/16 [History] Metoprolol Tartrate 50 mg [Lopressor 50 MG] 50 mg PO BID 10/27/16 [History ] Hydrocodone Bit/Acetaminophen [[place] 7.5-325 Tablet] 1 each PO TID 03/22/17 [ History] Ipratropium/Albuterol Sulfate [Combivent Respimat Common Canister] 1 puff IH UD 03/22/17 [History] Meloxicam 7.5 mg [Mobic 7.5 MG] 7.5 mg PO DAILY 03/22/17 [History] Hx Tetanus, Diphtheria Vaccination/Date Given: No Hx Influenza Vaccination/Date Given: No Hx Pneumococcal Vaccination/Date Given: No Immunizations Up to Date: Yes - Review of Systems Constitutional: No Symptoms Eyes: No Symptoms Ears, Nose, & Throat: Loose Teeth Respiratory: No Symptoms Cardiac: No Symptoms Abdominal/Gastrointestinal: No Symptoms Genitourinary Symptoms: No Symptoms - Past Medical History Pertinent Past Medical History: Yes Neurological History: Seizures ENT History: No Pertinent History Cardiac History: High Cholesterol Respiratory History: COPD Endocrine Medical History: Other Musculoskeletal History: Fibromyalgia GI Medical History: Esophageal Disorder, GERD History: No Pertinent History Psycho-Social History: Anxiety, Depression, Panic Disorder Female Reproductive Disorders: Abnormal Uterine Bleeding Other Medical History: lupus, neuropathy. PT STATES "I HAVE NIGHT SEIZURES ALOT " - Past Surgical History Past Surgical History: Yes Neuro Surgical History: No Pertinent History Cardiac: No Pertinent History Respiratory: No Pertinent History Gastrointestinal: No Pertinent History Genitourinary: No Pertinent History Musculoskeletal: Other Female Surgical History: Tubal Ligation, Other Other Surgical History: ABLATION - TUBAL LIGATION. HAS HAD BACK PROCEDURE WHER THEY WENT IN ANDCAUTERZED HER LOWER NERVES. BILATERAL WRIST SURGERY. PLATE AND TWO SCREWS IN THE BACK OF NECK - Social History Smoking Status: Current every day smoker How long have you smoked: 20 Exposure to second hand smoke: Yes Drug Use: none Patient Lives Alone: No - Female History Hx Last Menstrual Period: POST Hx Now: No - Nursing Vital Signs Nursing Vital Signs: Initial Vital Signs Temperature 98.2 F 08/30/17 11:38 Pulse Rate 69 08/30/17 11:38 Respiratory Rate 22 08/30/17 11:38 Blood Pressure 120/67 08/30/17 11:38 O2 Sat by Pulse Oximetry 98 08/30/17 11:38 Pain Scale Pain Intensity 10 - Physical Exam General Appearance: no apparent distress Eye Exam: PERRL/EOMI Ears, Nose, Throat Exam: normal ENT inspection Neck Exam: normal inspection Respiratory Exam: normal breath sounds SpO2: 98 Oxygen Delivery: Room Air - Course Nursing assessment & vital signs reviewed: Yes Ordered Tests: Medication Summary Discontinued Medications Generic Name Dose Route Start Last Admin Trade Name Freq PRN Reason Stop Dose Admin Ketorolac Tromethamine 60 mg 08/30/17 11:41 Toradol 30 Mg Injection IM 08/30/17 11:42 STAT ONE Nalbuphine HCl 5 mg 08/30/17 11:41 Nalbuphine Hcl 10 Mg/1 Ml Injection IM 08/30/17 11:42 STAT ONE - Progress Progress: improved, pain not gone completely Counseled pt/family regarding: diagnosis, need for follow-up - Departure Time of Disposition: 11:47 Departure Disposition: Home Clinical Impression: Dental caries Condition: Stable Critical Care Time: No Referrals: PATRICIA CHEN [Primary Care Provider] - Instructions: Tooth Decay, Tooth Abscess Additional Instructions: Please follow the instructions given to you. Please take your medication as prescribed if given. If symptoms recur or get worse, come back to the emergency room if you cannot reach your primary care physician, or call your primary care physician for an appointment. Again if your symptoms get worse, come back to the emergency room. Thanks for visiting emergency room, and let us take care of you. Prescriptions: Ketorolac Tromethamine [Toradol] 10 mg PO QID #15 tablet
[2017-08-30 12:11] VITALS: PULSE 110
== END 2017-08-30 12:10 | disposition home or self-care (01) ==
LOC: ED 11:10
DX: K02.9 Dental caries, unspecified (principal)
CPT/HCPCS: 96372; 99284; J1885; J2300

== ENCOUNTER 2017-11-30 17:02 | Emergency (ER) | payer OTHER ==
--- NOTE | 2017-11-30 17:29 | ERPHSYRPT ---
- History of Present Illness Time Seen by Provider: 11/30/17 17:19 Source: patient Exam Limitations: no limitations Patient Subjective Stated Complaint: Pt states "I went to put my boots on and my right kneecap slid sidways and popped really loudly and it hurt so bad I almost vomited. Now there is pain going into my foot and up into my hip." Triage Nursing Assessment: Pt alert and oriented X 3, skin pwd. Pt ambulates with a limp. Pt holding onto right knee, no bruising, swelling or deformity noted. Physician History: The patient is a 42-year-old female with her complaining that her right kneecap moved to the outside of her knee and then snapped back and she was putting on her boots just prior to arrival. She said it hurts a lot right now. She did not take any Tylenol or ibuprofen. She did not put ice on it. She immediately went to [facility] care but they were closed. She is supposed to go to work tonight at 7 PM. She did not hit her knee today. She is supposed to take several medications but had a dispute with her primary care physician and no longer takes the medicines. Method of Injury: twisted Occurred: just prior to arrival Quality: aching Severity of Pain-Max: moderate Severity of Pain-Current: moderate Lower Extremities Pain: knee: right Modifying Factors: Improves With: nothing Associated Symptoms: none Allergies/Adverse Reactions: Penicillins Allergy (Verified 11/30/17 17:07) Rash propoxyphene HCl [From Darvon] Allergy (Verified 11/30/17 17:07) PASS OUT Hx Tetanus, Diphtheria Vaccination/Date Given: Yes Hx Influenza Vaccination/Date Given: No Hx Pneumococcal Vaccination/Date Given: No Immunizations Up to Date: Yes - Review of Systems Constitutional: No Fever, No Chills Eyes: No Symptoms Ears, Nose, & Throat: No Symptoms Respiratory: No Cough, No Dyspnea Cardiac: No Chest Pain, No Edema, No Syncope Abdominal/Gastrointestinal: No Abdominal Pain, No Nausea, No Vomiting, No Diarrhea Genitourinary Symptoms: No Dysuria Musculoskeletal: Injury, Joint Pain, No Back Pain, No Neck Pain Skin: No Symptoms Neurological: No Dizziness, No Focal Weakness, No Sensory Changes Psychological: No Symptoms Endocrine: No Symptoms Hematologic/Lymphatic: No Symptoms Immunological/Allergic: No Symptoms All Other Systems: Reviewed and Negative - Past Medical History Pertinent Past Medical History: Yes Neurological History: Seizures ENT History: No Pertinent History Cardiac History: High Cholesterol Respiratory History: COPD Endocrine Medical History: Other Musculoskeletal History: Fibromyalgia GI Medical History: Esophageal Disorder, GERD History: No Pertinent History Psycho-Social History: Anxiety, Depression, Panic Disorder Female Reproductive Disorders: Abnormal Uterine Bleeding Other Medical History: lupus, neuropathy. PT STATES "I HAVE NIGHT SEIZURES ALOT " - Past Surgical History Past Surgical History: Yes Neuro Surgical History: No Pertinent History Cardiac: No Pertinent History Respiratory: No Pertinent History Gastrointestinal: No Pertinent History Genitourinary: No Pertinent History Musculoskeletal: Other Female Surgical History: Tubal Ligation, Other Other Surgical History: ABLATION - TUBAL LIGATION. HAS HAD BACK PROCEDURE WHER THEY WENT IN ANDCAUTERZED HER LOWER NERVES. BILATERAL WRIST SURGERY. PLATE AND TWO SCREWS IN THE BACK OF NECK - Social History Smoking Status: Current every day smoker How long have you smoked: years Exposure to second hand smoke: Yes Drug Use: none Patient Lives Alone: No - Female History Hx Last Menstrual Period: cauterization Hx Now: No - Nursing Vital Signs Nursing Vital Signs: Initial Vital Signs Temperature 98.4 F 11/30/17 17:09 Pulse Rate 98 H 11/30/17 17:09 Respiratory Rate 18 11/30/17 17:09 Blood Pressure 137/91 11/30/17 17:09 O2 Sat by Pulse Oximetry 98 11/30/17 17:09 Pain Scale Pain Intensity 5 - Physical Exam General Appearance: mild distress Eyes, Ears, Nose, Throat Exam: moist mucous membranes Neck Exam: non-tender, supple Cardiovascular/Respiratory Exam: chest non-tender, normal breath sounds, regular rate/rhythm, no respiratory distress Gastrointestinal/Abdominal Exam: non-tender, guarding Back Exam: normal inspection, No vertebral tenderness Hips Exam: bilateral: normal inspection Legs Exam: bilateral leg: normal inspection Knees Exam: right knee: soft tissue tenderness, left knee: normal inspection Ankle Exam: bilateral ankle: normal inspection Foot Exam: bilateral foot: normal inspection Neuro/Tendon Exam: normal sensation, normal motor functions Mental Status Exam: alert, 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, cooperative Skin Exam: normal color, warm, dry SpO2 Interpretation: normal SpO2: 98 Oxygen Delivery: Room Air - Radiology Exams Right Knee X-ray Interpretation: Interpreted by me, Negative Ordered Tests: Active Orders 24 hr Category Date Time Status Cold Application STAT Care 11/30/17 17:35 Active KNEE (3 VIEWS) Stat Exams 11/30/17 18:56 Taken Medication Summary Discontinued Medications Generic Name Dose Route Start Last Admin Trade Name Manish PRN Reason Stop Dose Admin Ketorolac Tromethamine 60 mg 11/30/17 17:34 11/30/17 17:38 Toradol 30 Mg Injection IM 11/30/17 17:35 60 mg STAT ONE Administration Ketorolac Tromethamine Confirm 11/30/17 17:37 Toradol 30 Mg Injection Administered 11/30/17 17:38 Dose 30 mg .ROUTE .STQwaq-MED ONE - Progress Progress: improved Counseled pt/family regarding: diagnosis, need for follow-up, rad results - Departure Time of Disposition: 19:23 Departure Disposition: Home Clinical Impression: Patellar subluxation Condition: Stable Critical Care Time: No Referrals: PATRICIA CHEN [Primary Care Provider] - Additional Instructions: You have a subluxation of the right knee that had occurred when you were at home. The x-ray was negative for fractures. You were given Toradol 60 mg by IM in the ER. Take Tylenol No. 3 1-2 tablets every 4-6 hours as needed. Take naproxen 500 mg every 12 hours as needed. Take zofran 4 mg ODT every 6 hrs as needed. Apply ice to the knee for 15 minutes at a time 3 times a day for 2-3 days. Wear the knee immobilizer when you are ambulating and use crutches until you are released. You have a work excuse. Follow-up this week with your primary medical doctor. Prescriptions: Ondansetron ODT 4 MG [Zofran Odt 4 mg] 1 tab PO Q6H PRN PRN #10 tab.rapdis PRN Reason: Nausea/Vomiting Codeine Phosphate/APAP #3 [Tylenol #3 Tablet] 1 tab PO Q4-6HPRN PRN #10 tablet PRN Reason: Pain Naproxen 500 mg PO BID PRN #60 tablet.
[2017-11-30] MEDS ORDERED: TORAdol 30 mg Injection ONE (17:37)
[2017-11-30] MEDS: TORAdol 30 mg Injection IM ONE (17:38)
[2017-11-30 20:08] VITALS: BP 124/80; PULSE 77; O2SAT 99
--- NOTE | 2017-12-01 08:59 | XRAY ---
Indication: Pain following fall. Comparison: October 28, 2013. 3 views of the right knee demonstrates minimal medial tibial plateau spurring. No other bony, articular, or soft tissue abnormalities.
== END 2017-11-30 20:11 | disposition home or self-care (01) ==
LOC: ED 17:02
DX: S83.001A Unspecified subluxation of right patella, initial encounter (principal); X58.XXXA Exposure to other specified factors, initial encounter; Y93.9 Activity, unspecified; Y92.009 Unspecified place in unspecified non-institutional (private) residence as the place of occurrence of the external cause; G40.909 Epilepsy, unspecified, not intractable, without status epilepticus; J44.9 Chronic obstructive pulmonary disease, unspecified; M79.7 Fibromyalgia; K21.9 Gastro-esophageal reflux disease without esophagitis; F41.8 Other specified anxiety disorders
CPT/HCPCS: 73562; 96372; 99284; J1885; L1830

== ENCOUNTER 2017-12-29 20:07 | Emergency (ER) | payer OTHER ==
[2017-12-29 20:39] VITALS: O2SAT 98
[2017-12-29] MEDS ORDERED: Rocephin 1000 MG INJ IM ONE (20:42)
[2017-12-29] MEDS ORDERED: Phenergan 25 MG INJ IM ONE (20:42)
[2017-12-29] MEDS ORDERED: NORCO 5/325 MG PO ONE ×2 (20:43→20:44)
--- NOTE | 2017-12-29 20:52 | ERPHSYRPT ---
- History of Present Illness Time Seen by Provider: 12/29/17 20:37 Source: patient Exam Limitations: no limitations Patient Subjective Stated Complaint: dental pain.. appt to see dentist thursday.. increasing swelling to right side of face. vomiting. Triage Nursing Assessment: alert and slight distress. pain to right upper teeth with swelling to the face. warm to touch. states has 3 bad teeth to be seen by DDS Thursday. vomiting x 45 minutes. denies fever. Physician History: FOR THE PAST 2 DAYS PT HAS HAD A RIGHT MAXILLARY MOLAR TOOTHACHE; TODAY SWELLING OVER THE RIGHT SIDE OF THE FACE, NAUSEA AND VOMITING X4 WITHOUT BLOOD. PT DENIES FEVER, CHEST PAIN, ABDOMINAL PAIN. Allergies/Adverse Reactions: Penicillins Allergy (Verified 12/29/17 20:39) Rash propoxyphene HCl [From Darvon] Allergy (Verified 12/29/17 20:39) PASS OUT Hx Tetanus, Diphtheria Vaccination/Date Given: Yes Hx Influenza Vaccination/Date Given: No Hx Pneumococcal Vaccination/Date Given: No Immunizations Up to Date: (unknown) - Review of Systems Constitutional: No Fever Ears, Nose, & Throat: Mouth Pain Cardiac: No Chest Pain Abdominal/Gastrointestinal: Nausea, Vomiting, No Abdominal Pain All Other Systems: Reviewed and Negative - Past Medical History Pertinent Past Medical History: Yes Neurological History: Seizures ENT History: No Pertinent History Cardiac History: High Cholesterol Respiratory History: COPD Endocrine Medical History: Other Musculoskeletal History: Fibromyalgia GI Medical History: Esophageal Disorder, GERD History: No Pertinent History Psycho-Social History: Anxiety, Depression, Panic Disorder Female Reproductive Disorders: Abnormal Uterine Bleeding Other Medical History: lupus, neuropathy. PT STATES "I HAVE NIGHT SEIZURES ALOT " - Past Surgical History Past Surgical History: Yes Neuro Surgical History: No Pertinent History Cardiac: No Pertinent History Respiratory: No Pertinent History Gastrointestinal: No Pertinent History Genitourinary: No Pertinent History Musculoskeletal: Other Female Surgical History: Tubal Ligation, Other Other Surgical History: ABLATION - TUBAL LIGATION. HAS HAD BACK PROCEDURE WHER THEY WENT IN ANDCAUTERZED HER LOWER NERVES. BILATERAL WRIST SURGERY. PLATE AND TWO SCREWS IN THE BACK OF NECK - Social History Smoking Status: Current every day smoker How long have you smoked: years Exposure to second hand smoke: No Drug Use: none Patient Lives Alone: No - Female History Hx Now: No - Nursing Vital Signs Nursing Vital Signs: Initial Vital Signs Temperature 98.0 F 12/29/17 20:32 Pulse Rate 103 H 12/29/17 20:32 Respiratory Rate 18 12/29/17 20:32 Blood Pressure 150/92 12/29/17 20:32 O2 Sat by Pulse Oximetry 98 12/29/17 20:32 Pain Scale Pain Intensity 8 - Physical Exam General Appearance: alert Eye Exam: PERRL/EOMI Ears, Nose, Throat Exam: TMs normal, pharynx normal, moist mucous membranes, other (MILD ERYTHEMA, EDEMA AND TENDERNESS OVER THE GUM SURROUNDING A RIGHT MAXILLARY MOLAR.) Neck Exam: normal inspection Respiratory Exam: lungs clear Cardiovascular Exam: normal heart sounds Gastrointestinal/Abdomen Exam: soft, normal bowel sounds Back Exam: normal range of motion Extremity Exam: No pedal edema Neurologic Exam: alert, cooperative Skin Exam: warm, dry SpO2 Interpretation: normal SpO2: 98 Oxygen Delivery: Room Air - Course Nursing assessment & vital signs reviewed: Yes Ordered Tests: Medication Summary Discontinued Medications Generic Name Dose Route Start Last Admin Trade Name Freq PRN Reason Stop Dose Admin Hydrocodone Bitart/Acetaminophen 2 tab 12/29/17 20:43 [place] 5/325 Mg PO 12/29/17 20:44 STAT ONE Hydrocodone Bitart/Acetaminophen 2 tab 12/29/17 20:44 [place] 5/325 Mg PO 12/29/17 20:45 SENT HOME W/ PATIENT ONE Ceftriaxone Sodium 1,000 mg 12/29/17 20:42 Rocephin 1000 Mg Inj IM 12/29/17 20:43 STAT ONE Promethazine HCl 25 mg 12/29/17 20:42 Phenergan 25 Mg Inj IM 12/29/17 20:43 STAT ONE - Departure Time of Disposition: 20:54 Departure Disposition: Home Clinical Impression: TOOTH ABSCESS, VOMITING Condition: Stable Critical Care Time: No Referrals: ODALYS GÓMEZ [Primary Care Provider] - Instructions: Tooth Abscess (DC), Nausea and Vomiting, Adult Additional Instructions: FOLLOW UP WITH PRIVATE DOCTOR & DENTIST TOMORROW. Prescriptions: Promethazine HCl 25 mg [Phenergan 25 mg] 25 mg PO Q4H PRN PRN #14 tablet PRN Reason: Nausea/Vomiting Naproxen [Naprosyn] 500 mg PO Q12H PRN PRN #20 tablet PRN Reason: Pain Cephalexin Monohydrate [Keflex] 500 mg PO TID #30 capsule
[2017-12-29] MEDS ORDERED: Rocephin 1000 MG INJ ONE (20:58)
[2017-12-29] MEDS ORDERED: XYLOCAINE 1% HCL 20 ML MDV ONE (20:58)
[2017-12-29] MEDS ORDERED: Phenergan 25 MG INJ ONE (20:58)
[2017-12-29] MEDS ORDERED: NORCO 5/325 MG ONE (20:58)
[2017-12-29 21:43] VITALS: BP 134/86; PULSE 94
== END 2017-12-29 21:44 | disposition home or self-care (01) ==
LOC: ED 20:07
DX: K04.7 Periapical abscess without sinus (principal); R11.2 Nausea with vomiting, unspecified
CPT/HCPCS: 96372; 99284; J0696; J2550; A9270-GY

== ENCOUNTER 2017-12-31 10:23 | Emergency (ER) | payer OTHER ==
[2017-12-31] MEDS ORDERED: BABY ASPIRIN 81 MG CHEW PO ONE (10:40)
[2017-12-31] MEDS ORDERED: Vistaril 50 MG/ML IM ONE (10:41)
[2017-12-31] MEDS ORDERED: TORAdol 30 mg Injection IV ONE (10:42)
--- NOTE | 2017-12-31 10:47 | ERPHSYRPT ---
- History of Present Illness Time Seen by Provider: 12/31/17 10:30 Source: patient Patient Subjective Stated Complaint: swelling to face from abscess tooth. seen in ed two days ago for same problem. also having pain in left lateral chest when taking a deep breath. Triage Nursing Assessment: ambulated to room per self. skin w/d, color normal. noted moderate swelling to right side of face. tender left lateral chest. Physician History: CC: chest pain Hx: 42 y/ patient of Dr Leyla Mohan checked in for facial swelling from her tooth. She complains though of chest pain in both sides of her ribs since last night. She was sent over to [facility]R from the [facility]. Some short of breath. No cough. Worried about her tooth infection. She has dental appt scheduled Thursday with Dr Chandra. She is on keflex. No rash or itching. No hx of heart trouble. No hx of venous thromboembolic disease. Takes metoprolol for low BP. Allergic to darvocet and amoxil. Her drove her to the hospital. Severity: moderate (worse with deep breaths) Allergies/Adverse Reactions: Penicillins Allergy (Verified 12/31/17 10:37) Rash propoxyphene HCl [From Darvon] Allergy (Verified 12/31/17 10:37) PASS OUT Hx Tetanus, Diphtheria Vaccination/Date Given: Yes Hx Influenza Vaccination/Date Given: No Hx Pneumococcal Vaccination/Date Given: No - Review of Systems Constitutional: Malaise, No Fever, No Chills Eyes: No Symptoms Ears, Nose, & Throat: Mouth Pain Respiratory: Dyspnea, No Cough Cardiac: Chest Pain Abdominal/Gastrointestinal: No Abdominal Pain, No Nausea, No Vomiting Skin: No Rash Neurological: No Headache Psychological: Anxiety (scared by the [facility] when they sent her to ER) All Other Systems: Reviewed and Negative - Past Medical History Pertinent Past Medical History: Yes Neurological History: Seizures ENT History: No Pertinent History Cardiac History: High Cholesterol Respiratory History: COPD Endocrine Medical History: Other Musculoskeletal History: Fibromyalgia GI Medical History: Esophageal Disorder, GERD History: No Pertinent History Psycho-Social History: Anxiety, Depression, Panic Disorder Female Reproductive Disorders: Abnormal Uterine Bleeding Other Medical History: lupus, neuropathy. PT STATES "I HAVE NIGHT SEIZURES ALOT " - Past Surgical History Past Surgical History: Yes Neuro Surgical History: No Pertinent History Cardiac: No Pertinent History Respiratory: No Pertinent History Gastrointestinal: No Pertinent History Genitourinary: No Pertinent History Musculoskeletal: Other Female Surgical History: Tubal Ligation, Other Other Surgical History: ABLATION - TUBAL LIGATION. BILATERAL WRIST SURGERY. PLATE AND TWO SCREWS IN THE BACK OF NECK - Social History Smoking Status: Current every day smoker How long have you smoked: years Exposure to second hand smoke: No Drug Use: none Patient Lives Alone: No ( brought her to the hospital) - Female History Hx Now: No - Nursing Vital Signs Nursing Vital Signs: Initial Vital Signs Temperature 97.8 F 12/31/17 10:29 Pulse Rate 75 12/31/17 10:29 Respiratory Rate 16 12/31/17 10:29 Blood Pressure 138/63 12/31/17 10:29 O2 Sat by Pulse Oximetry 100 12/31/17 10:29 Pain Scale Pain Intensity 7 - Physical Exam General Appearance: alert, other (tearful and upset and anxious) Eye Exam: PERRL/EOMI Ears, Nose, Throat Exam: normal ENT inspection, moist mucous membranes, other ( cracked right lower molar, no trismus or abscess. No facial cellulitis. No neck swelling or fullness.) Neck Exam: normal inspection, non-tender, supple Respiratory Exam: normal breath sounds Cardiovascular Exam: regular rate/rhythm, No murmur Gastrointestinal/Abdomen Exam: soft, No tenderness, No distention Back Exam: normal inspection Extremity Exam: normal inspection, normal range of motion, No calf tenderness, No pedal edema Neurologic Exam: alert, 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, cooperative, chief of hospital medicine II-XII nml as tested, sensation nml, No motor deficits Skin Exam: warm, dry, No rash SpO2 Interpretation: normal SpO2: 100 Oxygen Delivery: Room Air - Course Nursing assessment & vital signs reviewed: Yes EKG Interpreted by Me: RATE (77), Sinus Rhythm, NORMAL AXIS, NORMAL INTERVALS ( QTc 455), NORMAL QRS, NORMAL ST-T - Radiology Exams cxr X-ray Interpretation: Teleradiologist Report, Negative Ordered Tests: Active Orders 24 hr Category Date Time Status Inspector Motor Vehicles STAT Care 12/31/17 10:41 Active EKG-ER Only STAT Care 12/31/17 10:40 Active IV Insertion STAT Care 12/31/17 10:40 Active Pulse Oximetry (ED) STAT Care 12/31/17 10:40 Active CHEST 2 VIEWS (PA AND LAT) Stat Exams 12/31/17 10:41 Completed CHEST WITH CONTRAST [CT] Stat Exams 12/31/17 11:46 Completed CBC W DIFF Stat Lab 12/31/17 10:45 Completed CMP Routine Lab 12/31/17 10:45 Completed D-DIMER QUANTITATION Stat Lab 12/31/17 10:45 Completed HCG QUALITATIVE,SERUM Stat Lab 12/31/17 10:45 Completed TROPONIN Q3H Lab 12/31/17 10:45 Completed TROPONIN Q3H Lab 12/31/17 13:45 Ordered TROPONIN Q3H Lab 12/31/17 16:45 Ordered TROPONIN Q3H Lab 12/31/17 19:45 Ordered TROPONIN Q3H Lab 12/31/17 22:45 Ordered Medication Summary Discontinued Medications Generic Name Dose Route Start Last Admin Trade Name Freq PRN Reason Stop Dose Admin Acetaminophen 650 mg 12/31/17 13:13 Tylenol 325 Mg PO 12/31/17 13:14 STAT ONE Aspirin 81 mg 12/31/17 10:40 12/31/17 11:02 Baby Aspirin 81 Mg Chew PO 12/31/17 10:41 81 mg STAT ONE Administration Aspirin Confirm 12/31/17 11:00 Baby Aspirin 81 Mg Chew Administered 12/31/17 11:01 Dose 81 mg .ROUTE .STK-MED ONE Hydroxyzine HCl 50 mg 12/31/17 10:41 12/31/17 11:21 Vistaril 50 Mg/Ml IM 12/31/17 10:42 50 mg STAT ONE Administration Hydroxyzine HCl Confirm 12/31/17 11:01 Vistaril 100mg/2ml Administered 12/31/17 11:02 Dose 100 mg IM .STK-MED ONE Ketorolac Tromethamine 30 mg 12/31/17 10:42 12/31/17 11:02 Toradol 30 Mg Injection IV 12/31/17 10:43 30 mg STAT ONE Administration Ketorolac Tromethamine Confirm 12/31/17 11:01 Toradol 30 Mg Injection Administered 12/31/17 11:02 Dose 30 mg .ROUTE .STK-MED ONE Lab/Rad Data: Laboratory Result Diagrams 12/31/17 10:45 12/31/17 10:45 Laboratory Results 12/31/17 12/31/1718 Range/Units 10:45 10:45 10:45 WBC (4.0-10.5) K/mm3 RBC (4.1-5.4) M/mm3 Hgb (12.0-16.0) gm/dl Hct (35-47) % MCV (78-100) fl MCH (26-32) pg MCHC (32-36) g/dl RDW (11.5-14.0) % Plt Count (150-450) K/mm3 MPV (6-9.5) fl Gran % (36.0-66.0) % Lymphocytes % (24.0-44.0) % Monocytes % (0.0-12.0) % Eosinophils % (0.00-5.0) % Basophils % (0.0-0.4) % Basophils # (0-0.4) D-Dimer 758.79 H* (215-500) ng/mL Sodium 143 (137-145) mmol/L Potassium 3.8 (3.5-5.1) mmol/L Chloride 106 (98-107) mmol/L Carbon Dioxide 26 (22-30) mmol/L Anion Gap 14.8 (5-15) MEQ/L BUN 16 (7-17) mg/dL Creatinine 0.73 (0.52-1.04) mg/dL Estimated GFR > 60 ML/MIN Glucose 125 H (74-106) mg/dL Calcium 9.0 (8.4-10.2) mg/dL Total Bilirubin 0.40 (0.2-1.3) mg/dL AST 14 (14-36) U/L ALT 11 (0-35) U/L Alkaline Phosphatase 53 (38-126) U/L Troponin I < 0.012 (0.000-0.034) ng/mL Serum Total Protein 6.7 (6.3-8.2) g/dL Albumin 3.9 (3.5-5.0) g/dL Serum , Qual NEGATIVE (Negative) 12/31/17 Range/Units 10:45 WBC 8.4 (4.0-10.5) K/mm3 RBC 3.81 L (4.1-5.4) M/mm3 Hgb 12.2 (12.0-16.0) gm/dl Hct 37.4 (35-47) % MCV 98.2 (78-100) fl MCH 32.0 (26-32) pg MCHC 32.6 (32-36) g/dl RDW 12.7 (11.5-14.0) % Plt Count 341 (150-450) K/mm3 MPV 9.7 H (6-9.5) fl Gran % 70.3 H (36.0-66.0) % Lymphocytes % 18.7 L (24.0-44.0) % Monocytes % 7.1 (0.0-12.0) % Eosinophils % 3.3 (0.00-5.0) % Basophils % 0.6 (0.0-0.4) % Basophils # 0.05 (0-0.4) D-Dimer (215-500) ng/mL Sodium (137-145) mmol/L Potassium (3.5-5.1) mmol/L Chloride (98-107) mmol/L Carbon Dioxide (22-30) mmol/L Anion Gap (5-15) MEQ/L BUN (7-17) mg/dL Creatinine (0.52-1.04) mg/dL Estimated GFR ML/MIN Glucose (74-106) mg/dL Calcium (8.4-10.2) mg/dL Total Bilirubin (0.2-1.3) mg/dL AST (14-36) U/L ALT (0-35) U/L Alkaline Phosphatase (38-126) U/L Troponin I (0.000-0.034) ng/mL Serum Total Protein (6.3-8.2) g/dL Albumin (3.5-5.0) g/dL Serum , Qual (Negative) - Progress Progress Note: 12/31/17 11:46 Pt sleepy after meds. D-dimer elevated 750. Will get CTA to rule out PE. 12/31/17 12:51 CTA chest: 1. Negative pulmonary embolus. 2. No acute cardiopulmonary abnormalities. 3. Right middle and right lower lobe noncalcified micronodules. Findings probably granulomatous as there is evidence for old granulomatous disease elsewhere. per Dr Fuller INSPECT reviewed. She was given toradol and vistaril here. 12/31/17 13:14 Her face is hurting again and some headache so she requests APAP. Will change from keflex to clinda. She has dental follow up. No PE on chest CTA. Will release with instr. Counseled pt/family regarding: lab results, diagnosis, need for follow-up, rad results, smoking cessation - Departure Time of Disposition: 13:15 Departure Disposition: Home Clinical Impression: Chest pain, Pain, dental Condition: Fair Critical Care Time: No Referrals: PATRICIA CHEN [Primary Care Provider] - Instructions: Chest Pain (DC), Dental Pain (DC) Additional Instructions: See dentist as soon as possible. Rest and no driving today and stay with family. Stop keflex and start clindamycin. Continue naproxen for pain. May also use tylenol as directed for pain. Return for problems or concerns. Prescriptions: Clindamycin HCl 1 cap PO QID #28 capsule
[2017-12-31] MEDS ORDERED: BABY ASPIRIN 81 MG CHEW ONE (11:00)
[2017-12-31] MEDS ORDERED: TORAdol 30 mg Injection ONE (11:01)
[2017-12-31] MEDS ORDERED: VISTARIL 100MG/2ML IM ONE (11:01)
[2017-12-31 11:03] LABS: BASOPHIL % 0.6 % (0.0-0.4); Basophil (Absolute #) 0.05 (0-0.4); Eosinophil % 3.3 % (0.00-5.0); Eosinophil (Absolute #) 0.28 (0-0.5); Granulocyte Absolute (ANC) 5.91 (1.4-6.9); Granulocytes % 70.3 % (36.0-66.0); Hematocrit 37.4 % (35-47); Hemoglobin 12.2 gm/dl (12.0-16.0); Lymphocyte (Absolute #) 1.57 (1.0-4.6); Lymphocytes % 18.7 % (24.0-44.0); Mean Cell Volume 98.2 fl (78-100); Mean Corpuscular Hgb Concent. 32.6 g/dl (32-36); Mean Platelet Volume 9.7 fl (6-9.5); Monocytes % 7.1 % (0.0-12.0); Platelet Count 341 K/mm3 (150-450); Red Blood Count 3.81 M/mm3 (4.1-5.4); Red Cell Distribution Width 12.7 % (11.5-14.0); White Blood Count 8.4 K/mm3 (4.0-10.5)
--- NOTE | 2017-12-31 11:27 | XRAY ---
Indication: Chest pain. Comparison: October 26, 2016. PA/lateral chest again demonstrates normal heart and lungs with a few incidental calcified granulomas. Bony thorax intact with again lower cervical fusion surgery. No new/acute findings. Impression: Nonacute chest with chronic features.
[2017-12-31 11:30] LABS: ALBUMIN 3.9 g/dL (3.5-5.0); ALKALINE PHOSPHATASE 53 U/L (38-126); ANION GAP 14.8 MEQ/L (5-15); BLOOD UREA NITROGEN 16 mg/dL (7-17); CHLORIDE 106 mmol/L (98-107); Carbon Dioxide 26 mmol/L (22-30); Creatinine 1 0.73 mg/dL (0.52-1.04); Glucose 125 mg/dL (74-106); Potassium 3.8 mmol/L (3.5-5.1); SGOT/AST 14 U/L (14-36); SGPT/ALT 11 U/L (0-35); SODIUM 143 mmol/L (137-145); Total Protein 6.7 g/dL (6.3-8.2)
[2017-12-31 11:43] LABS: TROPONIN < 0.012 ng/mL (0.000-0.034)
--- NOTE | 2017-12-31 12:48 | XRAY ---
Indication: Chest pain and short of breath. Possible pulmonary embolus. Multiple contiguous axial images obtained through the chest using 80 cc Isovue 370 contrast and PE protocol. Comparison: None Adequate opacification of the pulmonary arteries to include the lobar and segmental branches. No filling defect or pulmonary embolus. Heart is not enlarged. No pericardial effusion. Aorta is normal in course and caliber. A few mediastinal and left hilar calcified nodes. No pathologic mediastinal/hilar lymphadenopathy. Examination of the lung parenchyma demonstrates mild bilateral dependent atelectasis and minimal biapical subpleural cystic changes. Well-circumscribed 6 mm noncalcified nodule in the right lung base and smaller 3 mm subpleural noncalcified nodule in the right middle lobe. No infiltrate or effusion. Bony thorax intact with C7-T1 fusion hardware. Limited upper abdomen demonstrates calcified splenic granulomas. Impression: 1. Negative pulmonary embolus. 2. No acute cardiopulmonary abnormalities. 3. Right middle and right lower lobe noncalcified micronodules. Findings probably granulomatous as there is evidence for old granulomatous disease elsewhere. CT DI 19.21
[2017-12-31] MEDS ORDERED: TYLENOL 325 MG PO ONE (13:13)
[2017-12-31 13:16] VITALS: BP 114/66; PULSE 70
[2017-12-31 13:17] VITALS: O2SAT 100
[2017-12-31] MEDS ORDERED: TYLENOL 325 MG ONE (13:17)
== END 2017-12-31 13:33 | disposition home or self-care (01) ==
LOC: ED 10:23
DX: R07.9 Chest pain, unspecified (principal); K08.89 Other specified disorders of teeth and supporting structures; R51 Headache
CPT/HCPCS: 36000; 36415; 71046; 71260; 80053; 84484; 84703; 85025; 85379; 93005; 93041; 96372; 96374; 99284; J1885; J3410; A9270-GY

== ENCOUNTER 2018-02-07 13:36 | Emergency (ER) | payer OTHER ==
[2018-02-07 14:16] LABS: BASOPHIL % 0.5 % (0.0-0.4); Basophil (Absolute #) 0.06 (0-0.4); Eosinophil % 3.1 % (0.00-5.0); Eosinophil (Absolute #) 0.35 (0-0.5); Granulocyte Absolute (ANC) 7.48 (1.4-6.9); Granulocytes % 67.1 % (36.0-66.0); Hematocrit 39.8 % (35-47); Hemoglobin 13.5 gm/dl (12.0-16.0); Lymphocyte (Absolute #) 2.44 (1.0-4.6); Lymphocytes % 21.9 % (24.0-44.0); Mean Cell Volume 95.2 fl (78-100); Mean Corpuscular Hemoglobin 32.3 pg (26-32); Mean Corpuscular Hgb Concent. 33.9 g/dl (32-36); Mean Platelet Volume 9.7 fl (6-9.5); Monocyte (Absolute #) 0.82 (0.0-1.3); Monocytes % 7.4 % (0.0-12.0); Platelet Count 385 K/mm3 (150-450); Red Blood Count 4.18 M/mm3 (4.1-5.4); Red Cell Distribution Width 12.6 % (11.5-14.0); White Blood Count 11.2 K/mm3 (4.0-10.5)
[2018-02-07 14:27] LABS: INR 1.11 (0.8-3.0)
[2018-02-07 14:32] LABS: ALBUMIN 4.3 g/dL (3.5-5.0); ALKALINE PHOSPHATASE 50 U/L (38-126); ANION GAP 15.9 MEQ/L (5-15); BLOOD UREA NITROGEN 19 mg/dL (7-17); CHLORIDE 108 mmol/L (98-107); CK-Creatinine Phosphokinase 73 U/L (30-135); Calcium 9.8 mg/dL (8.4-10.2); Carbon Dioxide 23 mmol/L (22-30); Creatinine 1 0.88 mg/dL (0.52-1.04); Glucose 133 mg/dL (74-106); Potassium 4.2 mmol/L (3.5-5.1); SGOT/AST 14 U/L (14-36); SGPT/ALT 12 U/L (0-35); SODIUM 142 mmol/L (137-145); Total Protein 7.3 g/dL (6.3-8.2)
[2018-02-07 14:46] VITALS: O2SAT 99
[2018-02-07] MEDS ORDERED: ULTRAM 50 MG PO ONE ×2 (14:49→17:31)
[2018-02-07] MEDS ORDERED: ULTRAM 50 MG ONE ×2 (14:52→17:43)
--- NOTE | 2018-02-07 14:55 | ERPHSYRPT ---
- History of Present Illness Time Seen by Provider: 02/07/18 13:45 Source: patient Exam Limitations: no limitations Patient Subjective Stated Complaint: states left arm locked up yesterday. unable to raise arm today. Triage Nursing Assessment: ambulated to room per self. skin w/d. holding left arm against her body. arm warm, normal color, good radial pulse. shoulder tender to touch Physician History: Pt is c/o left shoulder pain x 3 days, denies injury, no neck pain, chest pain, cough, SOB or fever. She has been taking NSAIDs with no relief. She does not know about family history she is adopted. Occurred: days ago (3) Method of Injury: unknown Quality: constant Severity of Pain-Max: moderate Severity of Pain-Current: mild Extremities Pain Location: shoulder: left Modifying Factors: Improves With: movement Associated Symptoms: none Allergies/Adverse Reactions: Penicillins Allergy (Verified 02/07/18 13:47) Rash propoxyphene HCl [From Darvon] Allergy (Verified 02/07/18 13:47) PASS OUT Hx Tetanus, Diphtheria Vaccination/Date Given: No Hx Influenza Vaccination/Date Given: No Hx Pneumococcal Vaccination/Date Given: No - Review of Systems Constitutional: No Symptoms Respiratory: No Symptoms Cardiac: No Symptoms Abdominal/Gastrointestinal: No Symptoms Musculoskeletal: Other (left shoulder pain) All Other Systems: Reviewed and Negative - Past Medical History Pertinent Past Medical History: Yes Neurological History: Seizures ENT History: No Pertinent History Cardiac History: High Cholesterol Respiratory History: COPD Endocrine Medical History: Other Musculoskeletal History: Fibromyalgia GI Medical History: Esophageal Disorder, GERD History: No Pertinent History Psycho-Social History: Anxiety, Depression, Panic Disorder Female Reproductive Disorders: Abnormal Uterine Bleeding Other Medical History: lupus, neuropathy. PT STATES "I HAVE NIGHT SEIZURES ALOT " - Past Surgical History Past Surgical History: Yes Neuro Surgical History: No Pertinent History Cardiac: No Pertinent History Respiratory: No Pertinent History Gastrointestinal: No Pertinent History Genitourinary: No Pertinent History Musculoskeletal: Other Female Surgical History: Tubal Ligation, Other Other Surgical History: ABLATION - TUBAL LIGATION. BILATERAL WRIST SURGERY. PLATE AND TWO SCREWS IN THE BACK OF NECK - Social History Smoking Status: Current every day smoker How long have you smoked: 25 Exposure to second hand smoke: No Drug Use: none Patient Lives Alone: No - Female History Hx Now: No - Nursing Vital Signs Nursing Vital Signs: Initial Vital Signs Respiratory Rate 18 04/22/18 13:42 Pain Scale Pain Intensity 6 - Physical Exam General Appearance: no apparent distress Eyes, Ears, Nose, Throat Exam: normal ENT inspection Neck Exam: normal inspection, non-tender, supple, No JVD Cardiovascular/Respiratory Exam: chest non-tender, normal breath sounds, regular rate/rhythm, heart sounds normal, no respiratory distress, No no ecchymosis, No no JVD Abdominal Exam: non-tender, soft, no organomegaly, no hernia Back Exam: normal inspection, No CVA tenderness Shoulder Exam: normal inspection, non-tender, no evidence of injury, limited ROM (due to pain), No swelling Elbow/Forearm Exam: normal inspection Mental Status Exam: alert, 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, cooperative Skin Exam: normal color, warm, dry, No rash SpO2 Interpretation: normal SpO2: 99 Oxygen Delivery: Room Air - Course Nursing assessment & vital signs reviewed: Yes EKG Interpreted by Me: RATE (84/min), NORMAL AXIS, NORMAL INTERVALS, NORMAL ST-T , Other (repeat Ek:18 PM; unchanged.) - Radiology Exams Chest X-ray Interpretation: Interpreted by me, Negative Shoulder X-ray Interpretation: Interpreted by me, Negative C-Spine X-ray Interpretation: Interpreted by me, Negative, Other (mild DJD, no acute changes) Ordered Tests: Active Orders 24 hr Category Date Time Status Hop Farmer STAT Care 02/07/18 13:53 Active Clean Catch Urine Specimen STAT Care 02/07/18 16:33 Active EKG-ER Only STAT Care 02/07/18 13:52 Active EKG-ER Only STAT Care 02/07/18 17:06 Active IV Insertion STAT Care 02/07/18 13:52 Active CERVICAL SPINE (2 OR 3 VIEW) Stat Exams 02/07/18 13:54 Taken CHEST 1 VIEW (PORTABLE) Stat Exams 02/07/18 13:52 Taken SHOULDER Stat Exams 02/07/18 13:55 Taken CBC W DIFF Stat Lab 02/07/18 14:00 Completed CK-Creatinine Phosphokinase Stat Lab 02/07/18 14:00 Completed CMP Stat Lab 02/07/18 14:00 Completed PROTIME WITH INR Stat Lab 02/07/18 14:00 Completed TROPONIN Q3H Lab 02/07/18 14:00 Completed TROPONIN Q3H Lab 02/07/18 16:50 Completed TROPONIN Q3H Lab 02/07/18 20:00 Ordered TROPONIN Q3H Lab 02/07/18 23:00 Ordered TROPONIN Q3H Lab 02/08/18 02:00 Ordered Urine Triage Profile Stat Lab 02/07/18 16:30 Completed Medication Summary Discontinued Medications Generic Name Dose Route Start Last Admin Trade Name Manish PRN Reason Stop Dose Admin Tramadol HCl 50 mg 02/07/18 14:49 02/07/18 14:53 Ultram 50 Mg PO 02/07/18 14:50 50 mg STAT ONE Administration Tramadol HCl Confirm 02/07/18 14:52 Ultram 50 Mg Administered 02/07/18 14:53 Dose 50 mg .ROUTE .STK-MED ONE Tramadol HCl 50 mg 02/07/18 17:31 Ultram 50 Mg PO 02/07/18 17:32 STAT ONE Lab/Rad Data: Laboratory Result Diagrams 02/07/18 14:00 02/07/18 14:00 Laboratory Results 02/07/18 02/07/18 02/07/18 Range/Units 16:50 16:30 14:00 WBC (4.0-10.5) K/mm3 RBC (4.1-5.4) M/mm3 Hgb (12.0-16.0) gm/dl Hct (35-47) % MCV (78-100) fl MCH (26-32) pg MCHC (32-36) g/dl RDW (11.5-14.0) % Plt Count (150-450) K/mm3 MPV (6-9.5) fl Gran % (36.0-66.0) % Eos # (Auto) (0-0.5) Absolute Lymphs (auto) (1.0-4.6) Absolute Monos (auto) (0.0-1.3) Lymphocytes % (24.0-44.0) % Monocytes % (0.0-12.0) % Eosinophils % (0.00-5.0) % Basophils % (0.0-0.4) % Absolute Granulocytes (1.4-6.9) Basophils # (0-0.4) PT (9.95-12.35) SECONDS INR (0.8-3.0) Sodium (137-145) mmol/L Potassium (3.5-5.1) mmol/L Chloride (98-107) mmol/L Carbon Dioxide (22-30) mmol/L Anion Gap (5-15) MEQ/L BUN (7-17) mg/dL Creatinine (0.52-1.04) mg/dL Estimated GFR ML/MIN Glucose (74-106) mg/dL Calcium (8.4-10.2) mg/dL Total Bilirubin (0.2-1.3) mg/dL AST (14-36) U/L ALT (0-35) U/L Alkaline Phosphatase (38-126) U/L Creatine Kinase (30-135) U/L Troponin I < 0.012 < 0.012 (0.000-0.034) ng/mL Serum Total Protein (6.3-8.2) g/dL Albumin (3.5-5.0) g/dL Urine Opiates Level NEGATIVE (NEGATIVE) Ur Methadone NEGATIVE (NEGATIVE) Urine Barbiturates NEGATIVE (NEGATIVE) Ur Phencyclidine (PCP) NEGATIVE (NEGATIVE) Urine Amphetamine NEGATIVE (NEGATIVE) U Benzodiazepine Level NEGATIVE (NEGATIVE) Urine Cocaine NEGATIVE (NEGATIVE) Urine Marijuana (THC) NEGATIVE (NEGATIVE) 02/07/18 02/07/18 02/07/18 Range/Units 14:00 14:00 14:00 WBC 11.2 H (4.0-10.5) K/mm3 RBC 4.18 (4.1-5.4) M/mm3 Hgb 13.5 (12.0-16.0) gm/dl Hct 39.8 (35-47) % MCV 95.2 (78-100) fl MCH 32.3 H (26-32) pg MCHC 33.9 (32-36) g/dl RDW 12.6 (11.5-14.0) % Plt Count 385 (150-450) K/mm3 MPV 9.7 H (6-9.5) fl Gran % 67.1 H (36.0-66.0) % Eos # (Auto) 0.35 (0-0.5) Absolute Lymphs (auto) 2.44 (1.0-4.6) Absolute Monos (auto) 0.82 (0.0-1.3) Lymphocytes % 21.9 L (24.0-44.0) % Monocytes % 7.4 (0.0-12.0) % Eosinophils % 3.1 (0.00-5.0) % Basophils % 0.5 (0.0-0.4) % Absolute Granulocytes 7.48 H (1.4-6.9) Basophils # 0.06 (0-0.4) PT 12.4 H (9.95-12.35) SECONDS INR 1.11 (0.8-3.0) Sodium 142 (137-145) mmol/L Potassium 4.2 (3.5-5.1) mmol/L Chloride 108 H (98-107) mmol/L Carbon Dioxide 23 (22-30) mmol/L Anion Gap 15.9 H (5-15) MEQ/L BUN 19 H (7-17) mg/dL Creatinine 0.88 (0.52-1.04) mg/dL Estimated GFR > 60.0 ML/MIN Glucose 133 H (74-106) mg/dL Calcium 9.8 (8.4-10.2) mg/dL Total Bilirubin 0.50 (0.2-1.3) mg/dL AST 14 (14-36) U/L ALT 12 (0-35) U/L Alkaline Phosphatase 50 (38-126) U/L Creatine Kinase 73 (30-135) U/L Troponin I (0.000-0.034) ng/mL Serum Total Protein 7.3 (6.3-8.2) g/dL Albumin 4.3 (3.5-5.0) g/dL Urine Opiates Level (NEGATIVE) Ur Methadone (NEGATIVE) Urine Barbiturates (NEGATIVE) Ur Phencyclidine (PCP) (NEGATIVE) Urine Amphetamine (NEGATIVE) U Benzodiazepine Level (NEGATIVE) Urine Cocaine (NEGATIVE) Urine Marijuana (THC) (NEGATIVE) - Progress Progress: improved Progress Note: 02/07/18 17:45 I explained our findings and the need to follow up with her physician in 3-4 days, she is being discharged in good condition, repeat troponin negative, she has been stable. - Departure Time of Disposition: 17:47 Departure Disposition: Home Clinical Impression: Cervical radiculopathy at C5 Condition: Stable Critical Care Time: No Referrals: PATRICIA CHEN [Primary Care Provider] - Instructions: Radiculopathy (DC) Additional Instructions: Rest x 3-4 days, apply moist heat to painful muscles, return if severe headaches , vomiting, sudden arm weakness, loss of strength, follow up with your physician in 2-3 days! Prescriptions: Methylprednisolone Packet [Medrol Dosepack] 4 mg PO UD #1 packet
[2018-02-07 17:12] LABS: Barbiturate,Urine NEGATIVE (NEGATIVE); Benzodiazepine,Urine NEGATIVE (NEGATIVE); Cocaine,Urine NEGATIVE (NEGATIVE); Methadone,Urine NEGATIVE (NEGATIVE); Opiate,Urine NEGATIVE (NEGATIVE); PCP,Urine NEGATIVE (NEGATIVE); THC,Urine NEGATIVE (NEGATIVE)
[2018-02-07 17:15] LABS: Amphetamine,Urine NEGATIVE (NEGATIVE)
[2018-02-07 17:23] VITALS: BP 127/76; PULSE 70
--- NOTE | 2018-02-07 19:48 | XRAY ---
Indication: Chronic left shoulder pain. No known injury. Comparison: December 31, 2017. Portable chest unchanged again demonstrating normal heart and lungs with a few incidental calcified granulomas. Bony thorax intact again with lower cervical fusion surgery.
--- NOTE | 2018-02-07 19:50 | XRAY ---
Indication: Chronic left shoulder pain. No known injury. Comparison: None 3 views of the left shoulder obtained. No bony, articular, or soft tissue abnormalities.
--- NOTE | 2018-02-07 19:52 | XRAY ---
Indication: Chronic left shoulder pain. No known injury. Comparison: October 21, 2016. AP, lateral, and swimmer's view of the cervical spine unchanged again demonstrating cervical lordotic straightening, minimal C4-C5 disc space narrowing, and C6-C7 fusion surgery with intact hardware. No new/acute findings.
== END 2018-02-07 18:14 | disposition home or self-care (01) ==
LOC: ED 13:36
DX: M54.12 Radiculopathy, cervical region (principal); M25.512 Pain in left shoulder
CPT/HCPCS: 36000; 36415; 71045; 72040; 73030; 80053; 80307; 82550; 84484; 85025; 85610; 93005; 93041; 99283; 99284; A9270-GY

== ENCOUNTER 2018-10-15 19:47 | Emergency (ER) | payer OTHER ==
[2018-10-15] MEDS ORDERED: TORAdol 30 mg Injection IM ONE (20:33)
--- NOTE | 2018-10-15 20:36 | ERPHSYRPT ---
- History of Present Illness Time Seen by Provider: 10/15/18 20:29 Source: patient Exam Limitations: no limitations Patient Subjective Stated Complaint: pt states she ran into a door jamb approx 1900 tonight injuring her left lower arm. Triage Nursing Assessment: pt is aox3, pupils perrl, afebrile, resps easy and non labored, radial pulses strong and equal, pt skin pink warm dry. abrasion noted to the left lower arm, slight swelling noted, no drainage apparent. pt sensation is intact. pt pain increased with pressure. Physician History: This is a 42-year-old white female arrives with complaint of pain in her left forearm she states she walked into a door jam approximately 2 hours prior to arrival. Patient complains of pain in her left forearm. Past medical history includes seizures, COPD, hyperlipidemia, esophageal disorder, abnormal uterine bleeding, fibromyalgia, anxiety, depression, panic disorder, lupus neuropathy, night seizures Past surgical history includes tubal ligation, neck surgery, wrist surgery Occurred: just prior to arrival (2 hours ago) Method of Injury: other (walked into a door jam) Severity of Pain-Max: moderate Severity of Pain-Current: moderate Extremities Pain Location: forearm: left Modifying Factors: Improves With: nothing Associated Symptoms: none Allergies/Adverse Reactions: Penicillins Allergy (Verified 02/07/18 13:47) Rash propoxyphene HCl [From Darvon] Allergy (Verified 02/07/18 13:47) PASS OUT Hx Tetanus, Diphtheria Vaccination/Date Given: Yes Hx Influenza Vaccination/Date Given: No Hx Pneumococcal Vaccination/Date Given: No Immunizations Up to Date: Yes - Review of Systems Constitutional: No Fever, No Chills Eyes: No Symptoms Ears, Nose, & Throat: No Symptoms Respiratory: No Cough, No Dyspnea Cardiac: No Chest Pain, No Edema, No Syncope Abdominal/Gastrointestinal: No Abdominal Pain, No Nausea, No Vomiting, No Diarrhea Genitourinary Symptoms: No Dysuria Musculoskeletal: Other (left forearm pain), No Back Pain, No Neck Pain Skin: No Rash Neurological: No Dizziness, No Focal Weakness, No Sensory Changes Psychological: No Symptoms Endocrine: No Symptoms All Other Systems: Reviewed and Negative - Past Medical History Pertinent Past Medical History: Yes Neurological History: Seizures ENT History: No Pertinent History Cardiac History: High Cholesterol Respiratory History: COPD Endocrine Medical History: Other Musculoskeletal History: Fibromyalgia GI Medical History: Esophageal Disorder, GERD History: No Pertinent History Psycho-Social History: Anxiety, Depression, Panic Disorder Female Reproductive Disorders: Abnormal Uterine Bleeding Other Medical History: lupus, neuropathy. PT STATES "I HAVE NIGHT SEIZURES ALOT " - Past Surgical History Past Surgical History: Yes Neuro Surgical History: No Pertinent History Cardiac: No Pertinent History Respiratory: No Pertinent History Gastrointestinal: No Pertinent History Genitourinary: No Pertinent History Musculoskeletal: Other Female Surgical History: Tubal Ligation, Other Other Surgical History: ABLATION - TUBAL LIGATION. BILATERAL WRIST SURGERY. PLATE AND TWO SCREWS IN THE BACK OF NECK - Social History Smoking Status: Current every day smoker How long have you smoked: 25 Exposure to second hand smoke: No Drug Use: none Patient Lives Alone: No - Female History Hx Now: No - Nursing Vital Signs Nursing Vital Signs: Initial Vital Signs Temperature 98.1 F 10/15/18 19:52 Pulse Rate 106 H 10/15/18 19:52 Respiratory Rate 20 10/15/18 19:52 Blood Pressure 136/86 10/15/18 19:52 O2 Sat by Pulse Oximetry 98 10/15/18 19:52 Pain Scale Pain Intensity 6 - Physical Exam General Appearance: mild distress Eyes, Ears, Nose, Throat Exam: moist mucous membranes Neck Exam: non-tender, supple Cardiovascular/Respiratory Exam: chest non-tender, normal breath sounds, regular rate/rhythm, no respiratory distress Abdominal Exam: non-tender, No guarding Back Exam: normal inspection, No vertebral tenderness Shoulder Exam: normal inspection, non-tender, no evidence of injury, normal ROM Elbow/Forearm Exam: abrasions, bone tenderness (Tender with palpation left mid forearm), No normal inspection (left forearm with 4 cm abrasion dorsal left forearm, pain with movement left forearm) Wrist Exam: normal inspection, non-tender, no evidence of injury, normal ROM Hand Exam: normal inspection, non-tender, no evidence of injury, normal ROM DTR - Upper Extremity Exam: tricep (R): 2+, tricep (L): 2+ Neuro/Tendon Exam: normal sensation, normal motor functions Mental Status Exam: alert, 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, cooperative Skin Exam: normal color, warm, dry SpO2 Interpretation: normal (98%) SpO2: 98 Oxygen Delivery: Room Air - Course Nursing assessment & vital signs reviewed: Yes - Radiology Exams Left Forearm X-ray Interpretation: Interpreted by me, Negative, No Fracture, No Subluxation Ordered Tests: Active Orders 24 hr Category Date Time Status Sling Application STAT Care 10/15/18 21:11 Active FOREARM Stat Exams 10/15/18 20:32 Taken Medication Summary Discontinued Medications Generic Name Dose Route Start Last Admin Trade Name Manish PRN Reason Stop Dose Admin Hydrocodone Bitart/Acetaminophen 1 tab 10/15/18 21:10 10/15/18 21:16 Paragon 5/325 Mg PO 10/15/18 21:11 1 tab STAT ONE Administration Hydrocodone Bitart/Acetaminophen Confirm 10/15/18 21:14 Paragon 5/325 Mg Administered 10/15/18 21:15 Dose 1 tab .ROUTE .STK-MED ONE Ketorolac Tromethamine 60 mg 10/15/18 20:33 10/15/18 20:47 Toradol 30 Mg Injection IM 10/15/18 20:34 60 mg STAT ONE Administration Ketorolac Tromethamine Confirm 10/15/18 20:37 Toradol 30 Mg Injection Administered 10/15/18 20:38 Dose 60 mg .ROUTE .STK-MED ONE - Progress Progress: improved Progress Note: 10/15/18 21:13 42-year-old white female arrives with complaint of pain in her left arm for 2 hours she states she walked into a door jam. X-rays of the left forearm negative fracture negative subluxation. Patient given Toradol 60 mg IM. Patient now states she has a migraine and is asking for medications for this she has a normal neurologic examination she is received Toradol injection just now Patient's vitals are stable Patient will be given Paragon 5/325 mg orally will send home a prescription of Paragon as well I've checked the patient's inspect report patient apparently had received oxycodone in August 28 tablets I do not see frequent use of narcotics. . - Departure Time of Disposition: 21:14 Departure Disposition: Home Clinical Impression: Pain in left forearm Contusion of left forearm Qualifiers: Encounter type: initial encounter Qualified Code(s): S50.12XA - Contusion of left forearm, initial encounter Headache Qualifiers: Headache type: unspecified Headache chronicity pattern: acute headache Intractability: not intractable Qualified Code(s): R51 - Headache Condition: Fair Critical Care Time: No Referrals: DOCTOR,NO FAMILY [Primary Care Provider] - Additional Instructions: Return home rest in dark quiet room. Use sling 48-72 hours, longer if pain persists. Follow-up with your family . symptoms are worse, no better in 48 hours, or persist longer than one week. Paragon as prescribed. Return for acute distress or for severe symptoms. your x-rays have been preliminarily read they will be over read tomorrow you Will be contacted if any discrepancies are noted. Prescriptions: Hydrocodone/Acetaminophen [Paragon 5-325 Tablet] 1 tab PO Q4-6HPRN PRN #10 tablet MDD 6 tablets PRN Reason: Pain
[2018-10-15] MEDS ORDERED: TORAdol 30 mg Injection ONE (20:37)
[2018-10-15 21:08] VITALS: O2SAT 98
[2018-10-15] MEDS ORDERED: NORCO 5/325 MG PO ONE ×2 (21:10→21:17)
[2018-10-15] MEDS ORDERED: NORCO 5/325 MG ONE ×2 (21:14→21:31)
[2018-10-15 21:43] VITALS: BP 140/84; PULSE 78
--- NOTE | 2018-10-16 13:24 | XRAY ---
Indication: Pain and contusion following injury. Comparison: None 2 views of the left forearm demonstrates small distal radial bone island. No other bony, articular, or soft tissue abnormalities.
== END 2018-10-15 21:41 | disposition home or self-care (01) ==
LOC: ED 19:47
DX: S50.12XA Contusion of left forearm, initial encounter (principal); M79.632 Pain in left forearm; R51 Headache; W22.8XXA Striking against or struck by other objects, initial encounter; F17.200 Nicotine dependence, unspecified, uncomplicated
CPT/HCPCS: 73090; 96372; 99284; J1885; A9270-GY

== ENCOUNTER 2018-11-14 10:30 | Emergency (ER) | payer OTHER ==
[2018-11-14] MEDS ORDERED: Zofran 4 MG/2 ML VIAL IV ONE (11:06)
[2018-11-14] MEDS ORDERED: Hydromorphone 1 mg/ml Ampule IV ONE (11:06)
[2018-11-14] MEDS ORDERED: BENADRYL 50 MG/ML IV ONE (11:06)
[2018-11-14] MEDS ORDERED: Sodium Chloride 0.9% 1000 ML 1,000 ML IV STA (11:06)
[2018-11-14] MEDS ORDERED: Zofran 4 MG/2 ML VIAL ONE (11:14)
[2018-11-14] MEDS ORDERED: BENADRYL 50 MG/ML ONE (11:14)
[2018-11-14] MEDS ORDERED: Sodium Chloride 0.9% 1000 ML 1,000 ML ONE (11:14)
[2018-11-14] MEDS ORDERED: Hydromorphone 1 mg/ml Ampule ONE (11:14)
--- NOTE | 2018-11-14 11:14 | ERPHSYRPT ---
- History of Present Illness Time Seen by Provider: 11/14/18 11:00 Historian: patient Exam Limitations: clinical condition Patient Subjective Stated Complaint: pt here for sudden onset of right flank pain today,with nausea and vomiting, Triage Nursing Assessment: pt alert, resless, resp easy, and soft but tender to touch Physician History: PATIENT WITH A HISTORY OF SEIZURE DISORDER, COPD, FIBROMYALGIA, DEPRESSON, COMPLAINS OF ACUTE ONSET OF RIGHT FLANK PAIN SEVERE, RADIATES TO LOWER ABDOMEN, ASSOCIATED WITH EMESIS X 2, DENIES URINARY SYMPTOMS, FEVER, DIARRHEA. Timing/Duration: today Activities at Onset: none Quality: sharpness Abdominal Pain Onset Location: RLQ, flank Pain Radiation: RLQ Severity of Pain-Max: severe Severity of Pain-Current: severe Modifying Factors: Improves With: nothing Associated Symptoms: nausea, vomiting Previous symptoms: no prior history Allergies/Adverse Reactions: Penicillins Allergy (Verified 02/07/18 13:47) Rash propoxyphene HCl [From Darvon] Allergy (Verified 02/07/18 13:47) PASS OUT Home Medications: Lorazepam 0.5 mg [Ativan 0.5 MG] 0.5 mg PO TID 11/14/18 [History] Topiramate 100 mg [Topamax 100 MG] 100 mg DAILY 11/14/18 [History] Hx Tetanus, Diphtheria Vaccination/Date Given: No Hx Influenza Vaccination/Date Given: No Hx Pneumococcal Vaccination/Date Given: No Immunizations Up to Date: Yes - Review of Systems Constitutional: No Fever, No Chills Eyes: No Symptoms Ears, Nose, & Throat: No Symptoms Respiratory: No Symptoms, No Cough, No Dyspnea Cardiac: No Symptoms, No Chest Pain, No Edema, No Syncope Abdominal/Gastrointestinal: Abdominal Pain, Nausea, Vomiting, No Diarrhea Genitourinary Symptoms: Flank Pain, No Dysuria Musculoskeletal: No Back Pain, No Neck Pain Skin: No Rash Neurological: No Symptoms, No Dizziness, No Focal Weakness, No Sensory Changes Psychological: No Symptoms Endocrine: No Symptoms All Other Systems: Reviewed and Negative - Past Medical History Pertinent Past Medical History: Yes Neurological History: Seizures ENT History: No Pertinent History Cardiac History: High Cholesterol Respiratory History: COPD Endocrine Medical History: Other Musculoskeletal History: Fibromyalgia GI Medical History: Esophageal Disorder, GERD History: No Pertinent History Psycho-Social History: Anxiety, Depression, Panic Disorder Female Reproductive Disorders: Abnormal Uterine Bleeding Other Medical History: lupus, neuropathy. PT STATES "I HAVE NIGHT SEIZURES ALOT " - Past Surgical History Past Surgical History: Yes Neuro Surgical History: No Pertinent History Cardiac: No Pertinent History Respiratory: No Pertinent History Gastrointestinal: No Pertinent History Genitourinary: No Pertinent History Musculoskeletal: Other Female Surgical History: Tubal Ligation, Other Other Surgical History: ABLATION - TUBAL LIGATION. BILATERAL WRIST SURGERY. PLATE AND TWO SCREWS IN THE BACK OF NECK - Social History Smoking Status: Current every day smoker How long have you smoked: 1/2 Exposure to second hand smoke: No Drug Use: none Patient Lives Alone: No - Female History Hx Last Menstrual Period: none Hx Now: No - Nursing Vital Signs Nursing Vital Signs: Initial Vital Signs Temperature 97.4 F 11/14/18 10:56 Pulse Rate 58 L 11/14/18 10:56 Respiratory Rate 20 11/14/18 10:56 Blood Pressure 122/79 11/14/18 10:56 O2 Sat by Pulse Oximetry 100 11/14/18 10:56 Pain Scale Pain Intensity 4 - Physical Exam General Appearance: moderate distress Eye Exam: PERRL/EOMI, eyes nml inspection Ears, Nose, Throat Exam: normal ENT inspection Neck Exam: normal inspection, non-tender, supple, full range of motion Respiratory Exam: normal breath sounds, lungs clear, No respiratory distress Cardiovascular Exam: regular rate/rhythm, normal heart sounds Gastrointestinal/Abdomen Exam: soft, normal bowel sounds, tenderness (RIGHT LOWER QUAD, NO GUARDING) Back Exam: normal inspection, CVA tenderness (MODERATE RIGHT CVA TENDERNESS) Extremity Exam: normal inspection, normal range of motion Neurologic Exam: alert, 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, cooperative Skin Exam: normal color Lymphatic Exam: adenopathy SpO2 Interpretation: normal SpO2: 100 - CT Exams Abdomen/Pelvis CT Interpretation: Tele-radiologist Report (INTERVAL APPEARANCE OF MODERATE RIGHT HYDRONEPHROSIS WITH DILATED RIGHT URETER AND NO DEFINITE URETERAL STONE. RECENT PASSAGE OF URETERAL STONE VS REFLUX VS INFECTIOUS), Normal Appendix Ordered Tests: Active Orders 24 hr Category Date Time Status Clean Catch Urine Specimen STAT Care 11/14/18 11:06 Active IV Insertion STAT Care 11/14/18 11:06 Active ABDOMEN AND PELVIS W/0 CONTRAS [CT] Stat Exams 11/14/18 11:06 Taken BMP Stat Lab 11/14/18 11:30 Completed CBC W DIFF Stat Lab 11/14/18 11:30 Completed UA W/RFX UR CULTURE Stat Lab 11/14/18 11:12 Completed Urine Triage Profile Stat Lab 11/14/18 11:12 Completed Medication Summary Discontinued Medications Generic Name Dose Route Start Last Admin Trade Name Sohailq PRN Reason Stop Dose Admin Diphenhydramine HCl 25 mg 11/14/18 11:06 11/14/18 11:17 Benadryl 50 Mg/Ml IV 11/14/18 11:07 25 mg STAT ONE Administration Diphenhydramine HCl Confirm 11/14/18 11:14 Benadryl 50 Mg/Ml Administered 11/14/18 11:15 Dose 50 mg .ROUTE .STK-MED ONE Hydromorphone HCl 1 mg 11/14/18 11:06 11/14/18 11:17 Hydromorphone 1 Mg/Ml Ampule IV 11/14/18 11:07 1 mg STAT ONE Administration Hydromorphone HCl Confirm 11/14/18 11:14 Hydromorphone 1 Mg/Ml Ampule Administered 11/14/18 11:15 Dose 1 mg .ROUTE .STK-MED ONE Sodium Chloride 1,000 mls @ 999 mls/hr 11/14/18 11:06 11/14/18 11:17 Sodium Chloride 0.9% 1000 Ml IV 11/14/18 12:06 999 mls/hr .Q1H1M STA Administration Sodium Chloride Confirm 11/14/18 11:14 Sodium Chloride 0.9% 1000 Ml Administered 11/14/18 11:15 Dose 1,000 mls @ ud .ROUTE .STK-MED ONE Ketorolac Tromethamine 30 mg 11/14/18 12:21 11/14/18 12:32 Toradol 30 Mg Injection IV 11/14/18 12:22 30 mg STAT ONE Administration Ketorolac Tromethamine Confirm 11/14/18 12:31 Toradol 30 Mg Injection Administered 11/14/18 12:32 Dose 30 mg .ROUTE .STK-MED ONE Ondansetron HCl 4 mg 11/14/18 11:06 11/14/18 11:17 Zofran 4 Mg/2 Ml Vial IV 11/14/18 11:07 4 mg STAT ONE Administration Ondansetron HCl Confirm 11/14/18 11:14 Zofran 4 Mg/2 Ml Vial Administered 11/14/18 11:15 Dose 4 mg .ROUTE .STK-MED ONE Lab/Rad Data: Laboratory Result Diagrams 11/14/18 11:30 11/14/18 11:30 Laboratory Results 11/14/18 11/14/18 11/14/18 Range/Units 11:30 11:30 11:12 WBC 12.7 H (4.0-10.5) K/mm3 RBC 3.77 L (4.1-5.4) M/mm3 Hgb 12.4 (12.0-16.0) gm/dl Hct 37.1 (35-47) % MCV 98.4 (78-100) fl MCH 32.8 H (26-32) pg MCHC 33.4 (32-36) g/dl RDW 12.7 (11.5-14.0) % Plt Count 307 (150-450) K/mm3 MPV 9.7 H (6-9.5) fl Gran % 82.2 H (36.0-66.0) % Eos # (Auto) 0.15 (0-0.5) Absolute Lymphs (auto) 1.43 (1.0-4.6) Absolute Monos (auto) 0.63 (0.0-1.3) Lymphocytes % 11.3 L (24.0-44.0) % Monocytes % 5.0 (0.0-12.0) % Eosinophils % 1.2 (0.00-5.0) % Basophils % 0.3 (0.0-0.4) % Absolute Granulocytes 10.41 H (1.4-6.9) Basophils # 0.04 (0-0.4) Sodium 142 (137-145) mmol/L Potassium 3.8 (3.5-5.1) mmol/L Chloride 112 H (98-107) mmol/L Carbon Dioxide 21 L (22-30) mmol/L Anion Gap 12.3 (5-15) MEQ/L BUN 14 (7-17) mg/dL Creatinine 0.96 (0.52-1.04) mg/dL Estimated GFR > 60.0 ML/MIN Glucose 114 H (74-106) mg/dL Calcium 9.1 (8.4-10.2) mg/dL Urine Color (YELLOW) Urine Appearance (CLEAR) Urine pH (5-6) Ur Specific [place] (1.005-1.025) Urine Protein (Negative) Urine Ketones (NEGATIVE) Urine Blood (0-5) Ross/ul Urine Nitrite (NEGATIVE) Urine Bilirubin (NEGATIVE) Urine Urobilinogen (0-1) mg/dL Ur Leukocyte Esterase (NEGATIVE) Urine WBC (Auto) (0-5) /HPF Urine RBC (Auto) (0-2) /HPF U Epithel Cells (Auto) (FEW) /HPF Urine Bacteria (Auto) (NEGATIVE) /HPF Amorphous Crystals (NEGATIVE) /HPF Urine Mucus (Auto) (NEGATIVE) /HPF Urine Culture Reflexed (NO) Urine Glucose (NEGATIVE) mg/dL Urine Opiates Level NEGATIVE (NEGATIVE) Ur Methadone NEGATIVE (NEGATIVE) Urine Barbiturates NEGATIVE (NEGATIVE) Ur Phencyclidine (PCP) NEGATIVE (NEGATIVE) Urine Amphetamine NEGATIVE (NEGATIVE) U Benzodiazepine Level NEGATIVE (NEGATIVE) Urine Cocaine NEGATIVE (NEGATIVE) Urine Marijuana (THC) NEGATIVE (NEGATIVE) 11/14/18 Range/Units 11:12 WBC (4.0-10.5) K/mm3 RBC (4.1-5.4) M/mm3 Hgb (12.0-16.0) gm/dl Hct (35-47) % MCV (78-100) fl MCH (26-32) pg MCHC (32-36) g/dl RDW (11.5-14.0) % Plt Count (150-450) K/mm3 MPV (6-9.5) fl Gran % (36.0-66.0) % Eos # (Auto) (0-0.5) Absolute Lymphs (auto) (1.0-4.6) Absolute Monos (auto) (0.0-1.3) Lymphocytes % (24.0-44.0) % Monocytes % (0.0-12.0) % Eosinophils % (0.00-5.0) % Basophils % (0.0-0.4) % Absolute Granulocytes (1.4-6.9) Basophils # (0-0.4) Sodium (137-145) mmol/L Potassium (3.5-5.1) mmol/L Chloride (98-107) mmol/L Carbon Dioxide (22-30) mmol/L Anion Gap (5-15) MEQ/L BUN (7-17) mg/dL Creatinine (0.52-1.04) mg/dL Estimated GFR ML/MIN Glucose (74-106) mg/dL Calcium (8.4-10.2) mg/dL Urine Color YELLOW (YELLOW) Urine Appearance CLOUDY (CLEAR) Urine pH 7.0 (5-6) Ur Specific [place] 1.016 (1.005-1.025) Urine Protein NEGATIVE (Negative) Urine Ketones NEGATIVE (NEGATIVE) Urine Blood NEGATIVE (0-5) Ross/ul Urine Nitrite NEGATIVE (NEGATIVE) Urine Bilirubin NEGATIVE (NEGATIVE) Urine Urobilinogen NEGATIVE (0-1) mg/dL Ur Leukocyte Esterase NEGATIVE (NEGATIVE) Urine WBC (Auto) 0-2 (0-5) /HPF Urine RBC (Auto) NONE (0-2) /HPF U Epithel Cells (Auto) RARE (FEW) /HPF Urine Bacteria (Auto) FEW (NEGATIVE) /HPF Amorphous Crystals MANY (NEGATIVE) /HPF Urine Mucus (Auto) SLIGHT (NEGATIVE) /HPF Urine Culture Reflexed NO (NO) Urine Glucose NEGATIVE (NEGATIVE) mg/dL Urine Opiates Level (NEGATIVE) Ur Methadone (NEGATIVE) Urine Barbiturates (NEGATIVE) Ur Phencyclidine (PCP) (NEGATIVE) Urine Amphetamine (NEGATIVE) U Benzodiazepine Level (NEGATIVE) Urine Cocaine (NEGATIVE) Urine Marijuana (THC) (NEGATIVE) - Progress Progress Note: 11/14/18 11:14 ADMINISTERED IV NORMAL SALINE 1000ML/HR, ZOFRAN 4MG, DILAUDID 1MG BENADRYL 25MG IV - Departure Time of Disposition: 12:47 Departure Disposition: Home Clinical Impression: RIGHT RENAL COLIC Condition: Stable Critical Care Time: No Referrals: DOCTOR,NO FAMILY [Primary Care Provider] - Additional Instructions: STRAIN URINE USING STRAINER FOR 72 HOURS. TORADOL 10MG EVERY 6 HOURS FOR PAIN AND NORCO 5/325 EVERY 6 HOURS FOR BREAK THROUGH PAIN. CONSULT YOUR PRIMARY CARE PROVIDER FOR FOLLOWUP IN 1 WEEK. RETURN TO EMERGENCY FOR INCREASING PAIN DISCOMFORT. Prescriptions: Hydrocodone/APAP 5-325 Tab^^^ [[place] 5-325 Tablet^^^] 1 each PO Q6HPRN PRN #8 tablet MDD 4 PRN Reason: Pain Ketorolac Tromethamine [Toradol] 10 mg PO Q6H PRN PRN #20 tablet PRN Reason: Pain
[2018-11-14 11:21] LABS: Amourphous Crystal MANY /HPF (NEGATIVE); Appearance CLOUDY (CLEAR); Bacteria FEW /HPF (NEGATIVE); Bilirubin NEGATIVE (NEGATIVE); Blood NEGATIVE Ery/ul (0-5); Epithelial Cells RARE /HPF (FEW); Glucose NEGATIVE (NEGATIVE); Ketones NEGATIVE (NEGATIVE); Leukocyte Esterase NEGATIVE (NEGATIVE); Mucus SLIGHT /HPF (NEGATIVE); Nitrite NEGATIVE (NEGATIVE); Protein,Urine Dip NEGATIVE (Negative); Specific Gravity 1.016 (1.005-1.025); Urobilinogen NEGATIVE mg/dL (0-1); WBC 0-2 /HPF (0-5)
[2018-11-14 11:34] LABS: Amphetamine,Urine NEGATIVE (NEGATIVE); Barbiturate,Urine NEGATIVE (NEGATIVE); Benzodiazepine,Urine NEGATIVE (NEGATIVE); Cocaine,Urine NEGATIVE (NEGATIVE); Methadone,Urine NEGATIVE (NEGATIVE); Opiate,Urine NEGATIVE (NEGATIVE); PCP,Urine NEGATIVE (NEGATIVE); THC,Urine NEGATIVE (NEGATIVE)
[2018-11-14 11:35] LABS: BASOPHIL % 0.3 % (0.0-0.4); Basophil (Absolute #) 0.04 (0-0.4); Eosinophil % 1.2 % (0.00-5.0); Eosinophil (Absolute #) 0.15 (0-0.5); Granulocyte Absolute (ANC) 10.41 (1.4-6.9); Granulocytes % 82.2 % (36.0-66.0); Hematocrit 37.1 % (35-47); Hemoglobin 12.4 gm/dl (12.0-16.0); Lymphocyte (Absolute #) 1.43 (1.0-4.6); Lymphocytes % 11.3 % (24.0-44.0); Mean Cell Volume 98.4 fl (78-100); Mean Corpuscular Hgb Concent. 33.4 g/dl (32-36); Mean Platelet Volume 9.7 fl (6-9.5); Monocyte (Absolute #) 0.63 (0.0-1.3); Platelet Count 307 K/mm3 (150-450); Red Blood Count 3.77 M/mm3 (4.1-5.4); Red Cell Distribution Width 12.7 % (11.5-14.0); White Blood Count 12.7 K/mm3 (4.0-10.5)
[2018-11-14 11:36] LABS: Mean Corpuscular Hemoglobin 32.8 pg (26-32)
[2018-11-14 11:44] LABS: ANION GAP 12.3 MEQ/L (5-15); BLOOD UREA NITROGEN 14 mg/dL (7-17); CHLORIDE 112 mmol/L (98-107); Calcium 9.1 mg/dL (8.4-10.2); Carbon Dioxide 21 mmol/L (22-30); Creatinine 1 0.96 mg/dL (0.52-1.04); Glucose 114 mg/dL (74-106); Potassium 3.8 mmol/L (3.5-5.1); SODIUM 142 mmol/L (137-145)
[2018-11-14] MEDS ORDERED: TORAdol 30 mg Injection IV ONE (12:21)
[2018-11-14] MEDS ORDERED: TORAdol 30 mg Injection ONE (12:31)
[2018-11-14 13:05] VITALS: BP 104/57; PULSE 78; O2SAT 97
--- NOTE | 2018-11-14 20:08 | XRAY ---
Indication: Right flank pain. Multiple contiguous axial images obtained through the abdomen and pelvis without contrast as ordered. Comparison: March 22, 2017. Lung bases again demonstrates bibasilar dependent atelectasis. Stable 3-4 mm right base noncalcified granuloma probably granulomatous in the stomach graft. No infiltrate or effusion. Heart is not enlarged. Noncontrasted stomach and bowel loops appear nonobstructed. Normal appendix. Stable sigmoid diverticulosis. Right kidney is now mildly hydronephrotic without perinephric fluid. Entire right ureter is also prominent up to 12 mm, possibly from recent passage of calculus. Stable calcified splenic granulomas. Remaining liver, gallbladder, pancreas, spleen, adrenal glands, left kidney, left ureter, bladder, uterus, and aorta unremarkable for noncontrast exam. Osseous structures intact. Impression: 1. New finding hydronephrotic right kidney and distended right ureter possibly from recent passage of calculus. 2. Stable sigmoid diverticulosis and evidence for old granulomatous disease. Comment: Preliminary interpretation was made by [facility]. No discrepancy. CTDI 22.79
== END 2018-11-14 13:08 | disposition home or self-care (01) ==
LOC: ED 10:30
DX: N23 Unspecified renal colic (principal); R10.9 Unspecified abdominal pain; G40.909 Epilepsy, unspecified, not intractable, without status epilepticus; M79.7 Fibromyalgia; R10.31 Right lower quadrant pain; Z79.899 Other long term (current) drug therapy
CPT/HCPCS: 36000; 36415; 74176; 80048; 80307; 81001; 85025; 96360; 96361; 96374; 96375; 99284; J1170; J1200; J1885; J2405

== ENCOUNTER 2019-02-20 08:32 | Emergency (ER) | payer MEDICAID ==
[2019-02-20] MEDS ORDERED: TORAdol 30 mg Injection IM ONE (09:03)
[2019-02-20 09:17] VITALS: PULSE 82; O2SAT 98
[2019-02-20] MEDS ORDERED: TORAdol 30 mg Injection ONE (09:20)
--- NOTE | 2019-02-20 09:22 | ERPHSYRPT ---
- History of Present Illness Time Seen by Provider: 02/20/19 09:17 Source: patient Exam Limitations: no limitations Patient Subjective Stated Complaint: states was stepping up into [facility] last night and hit lower left leg on edge of [facility]. Triage Nursing Assessment: ambulated to room per self. skin w/d, color normal. 2cm lac noted to lower left leg with minimal bleeding. pain is 5. Physician History: states was stepping up into [facility] last night and hit lower left leg on edge of [facility]. Method of Injury: direct blow Occurred: just prior to arrival Severity of Pain-Max: mild Severity of Pain-Current: mild Lower Extremities Pain: leg: left Modifying Factors: Improves With: nothing Associated Symptoms: none Allergies/Adverse Reactions: Penicillins Allergy (Verified 02/20/19 09:09) Rash propoxyphene HCl [From Darvon] Allergy (Verified 02/20/19 09:09) PASS OUT Home Medications: Erenumab-Aooe [Aimovig Autoinjector] 70 mg IJ UD 02/20/19 [History] Levetiracetam 500 mg PO BID 02/20/19 [History] Oxycodone Myristate [Xtampza ER] 13.5 mg PO BID 02/20/19 [History] Propranolol HCl 20 mg [Inderal 20 MG] 20 mg PO BID 02/20/19 [History] Hx Tetanus, Diphtheria Vaccination/Date Given: Yes Hx Influenza Vaccination/Date Given: No Hx Pneumococcal Vaccination/Date Given: No - Review of Systems Constitutional: No Symptoms Eyes: No Symptoms Ears, Nose, & Throat: No Symptoms Respiratory: No Symptoms Cardiac: No Symptoms Abdominal/Gastrointestinal: No Symptoms Genitourinary Symptoms: No Symptoms Musculoskeletal: No Symptoms Skin: Other (laceration on left leg) - Past Medical History Pertinent Past Medical History: Yes Neurological History: Seizures ENT History: No Pertinent History Cardiac History: High Cholesterol Respiratory History: COPD Endocrine Medical History: Other Musculoskeletal History: Fibromyalgia GI Medical History: Esophageal Disorder, GERD History: No Pertinent History Psycho-Social History: Anxiety, Depression, Panic Disorder Female Reproductive Disorders: Abnormal Uterine Bleeding Other Medical History: lupus, neuropathy. PT STATES "I HAVE NIGHT SEIZURES ALOT " - Past Surgical History Past Surgical History: Yes Neuro Surgical History: No Pertinent History Cardiac: No Pertinent History Respiratory: No Pertinent History Gastrointestinal: No Pertinent History Genitourinary: No Pertinent History Musculoskeletal: Other Female Surgical History: Tubal Ligation, Other Other Surgical History: ABLATION - TUBAL LIGATION. BILATERAL WRIST SURGERY. PLATE AND TWO SCREWS IN THE BACK OF NECK - Social History Smoking Status: Current every day smoker How long have you smoked: yrs Exposure to second hand smoke: Yes Drug Use: none Patient Lives Alone: No - Female History Hx Now: No - Nursing Vital Signs Nursing Vital Signs: Initial Vital Signs Temperature 98 F 02/20/19 08:47 Pulse Rate 82 02/20/19 08:47 Respiratory Rate 16 02/20/19 08:47 Blood Pressure 102/80 02/20/19 08:47 O2 Sat by Pulse Oximetry 98 02/20/19 08:47 Pain Scale Pain Intensity 5 - Physical Exam General Appearance: no apparent distress Eyes, Ears, Nose, Throat Exam: normal ENT inspection Neck Exam: normal inspection Legs Exam: left leg: soft tissue tenderness, swelling Neuro/Tendon Exam: normal sensation Skin Exam: laceration SpO2: 98 Procedures - Laceration/Wound Repair Left Anterior/Posterior Other Wound Location: Left, lower leg Wound Length (cm): 2 Wound's Depth, Shape: superficial, contused tissue Wound Explored: clean Irrigated: Yes Hibiclens Prep: Yes Wound Repaired With: Steri-strips - Course Nursing assessment & vital signs reviewed: Yes - Radiology Exams Left Lower Leg X-ray Interpretation: Reviewed by me, Negative, No Fracture Ordered Tests: Active Orders 24 hr Category Date Time Status Wound Care STAT Care 02/20/19 08:58 Active LOWER LEG Stat Exams 02/20/19 08:57 Ordered Medication Summary Discontinued Medications Generic Name Dose Route Start Last Admin Trade Name Manish PRN Reason Stop Dose Admin Ketorolac Tromethamine 60 mg 02/20/19 09:03 Toradol 30 Mg Injection IM 02/20/19 09:04 STAT ONE - Progress Progress: improved Counseled pt/family regarding: diagnosis, need for follow-up, rad results - Departure Departure Disposition: Home Clinical Impression: Laceration of left lower leg without complication Qualifiers: Encounter type: initial encounter Qualified Code(s): S81.812A - Laceration without foreign body, left lower leg, initial encounter Condition: Stable Critical Care Time: No Referrals: RAMILA ORDONEZ [Primary Care Provider] - Instructions: Laceration Repair Additional Instructions: LACERATION CARE 1. Do not use peroxide, merthiolate, alcohol, or betadine. 2. Keep wound clean and dry. 3. Change dressing if it becomes wet or soiled. 4. If you must work, wear protective covering. 5. You may return to the emergency department or see your family physician for suture removal. 6. See your family physician or return to the emergency department for any of the following signs or symptoms: A. Redness B. Swelling C. Discolored drainage D. Red streaks E. Elevated temperature F. Other signs of infection
[2019-02-20 09:47] VITALS: BP 136/85
--- NOTE | 2019-02-20 20:59 | XRAY ---
Indication: Laceration/pain following fall. Comparison: None 2 views of the left lower leg demonstrates anterior soft tissue swelling. No other bony, articular, or soft tissue abnormalities.
== END 2019-02-20 09:59 | disposition home or self-care (01) ==
LOC: ED 08:32
DX: S81.812A Laceration without foreign body, left lower leg, initial encounter (principal); J44.9 Chronic obstructive pulmonary disease, unspecified; G40.909 Epilepsy, unspecified, not intractable, without status epilepticus; K21.9 Gastro-esophageal reflux disease without esophagitis; M79.7 Fibromyalgia; G62.9 Polyneuropathy, unspecified; W22.09XA Striking against other stationary object, initial encounter; W26.9XXA Contact with unspecified sharp object(s), initial encounter
CPT/HCPCS: 73590; 96372; 99284; J1885

== ENCOUNTER 2019-03-12 15:49 | Emergency (ER) | payer MEDICAID, OTHER ==
[2019-03-12 16:17] VITALS: PULSE 85; O2SAT 96
--- NOTE | 2019-03-12 16:26 | ERPHSYRPT ---
- History of Present Illness Time Seen by Provider: 03/12/19 16:23 Source: patient Exam Limitations: no limitations Patient Subjective Stated Complaint: Just feels "off" as if someone has drugged her, right side of face is tingly, extremely fatigued, started a new once a month migraine shot, Amavic, last month and just took her second shot yesterday , has a shooting discomfort that is going up the back of her neck but does not hurt and it's as if she is going to get a migraine, she already has tremors but they are worse, has been slowing down on her adderal and hasn't taken any in almost 3 weeks Triage Nursing Assessment: Pt walked into the ER with a stable gait, hypertensive, lethargic, hx of lupus, pulses normal, no difficulties with strength, PERRL Physician History: 43-year-old female with significant past medical history of migraine came to the emergency room with complaining of Just feels "off" as if someone has drugged her, right side of face is tingly, extremely fatigued, started a new once a month migraine shot, Amavic, last month and just took her second shot yesterday, has a shooting discomfort that is going up the back of her neck but does not hurt and it's as if she is going to get a migraine, she already has tremors but they are worse, has been slowing down on her adderal and hasn't taken any in almost 3 weeks Timing/Duration: today Severity: mild Character of Deficits: altered sensation, Right Facial Deficits: no difficulties Baseline/Normal Cognition: alert 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 Current Cognition: alert 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 Allergies/Adverse Reactions: Penicillins Allergy (Verified 03/12/19 16:17) Rash propoxyphene HCl [From Darvon] Allergy (Verified 03/12/19 16:17) PASS OUT Home Medications: Erenumab-Aooe [Aimovig Autoinjector] 70 mg IJ UD 02/20/19 [History] Levetiracetam 500 mg PO BID 02/20/19 [History] Oxycodone Myristate [Xtampza ER] 13.5 mg PO BID 02/20/19 [History] Propranolol HCl 20 mg [Inderal 20 MG] 18 mg PO BID 02/20/19 [History] Hx Tetanus, Diphtheria Vaccination/Date Given: Yes Hx Influenza Vaccination/Date Given: No Hx Pneumococcal Vaccination/Date Given: No - Review of Systems Constitutional: No Fever, No Chills Eyes: No Symptoms Ears, Nose, & Throat: No Symptoms Respiratory: No Cough, No Dyspnea Cardiac: Other (feeling heavy in chest), No Chest Pain, No Edema, No Syncope Abdominal/Gastrointestinal: No Abdominal Pain, No Nausea, No Vomiting, No Diarrhea Genitourinary Symptoms: No Dysuria Musculoskeletal: No Back Pain, No Neck Pain Skin: No Rash Neurological: Parasthesia (right side of face), No Dizziness, No Focal Weakness , No Sensory Changes Psychological: No Symptoms Endocrine: No Symptoms All Other Systems: Reviewed and Negative - Past Medical History Pertinent Past Medical History: Yes Neurological History: Seizures ENT History: No Pertinent History Cardiac History: High Cholesterol Respiratory History: COPD Endocrine Medical History: Other Musculoskeletal History: Fibromyalgia GI Medical History: Esophageal Disorder, GERD History: No Pertinent History Psycho-Social History: Anxiety, Depression, Panic Disorder Female Reproductive Disorders: Abnormal Uterine Bleeding Other Medical History: lupus, neuropathy. PT STATES "I HAVE NIGHT SEIZURES ALOT " - Past Surgical History Past Surgical History: Yes Neuro Surgical History: No Pertinent History Cardiac: No Pertinent History Respiratory: No Pertinent History Gastrointestinal: No Pertinent History Genitourinary: No Pertinent History Musculoskeletal: Other Female Surgical History: Tubal Ligation, Other Other Surgical History: ABLATION - TUBAL LIGATION. BILATERAL WRIST SURGERY. PLATE AND TWO SCREWS IN THE BACK OF NECK - Social History Smoking Status: Current every day smoker How long have you smoked: yrs Exposure to second hand smoke: Yes Drug Use: none Patient Lives Alone: No - Female History Hx Now: No (tubal, ablation) - Nursing Vital Signs Nursing Vital Signs: Initial Vital Signs Temperature 98.2 F 03/12/19 16:03 Pulse Rate 85 03/12/19 16:03 Blood Pressure 149/70 03/12/19 16:03 O2 Sat by Pulse Oximetry 96 03/12/19 16:03 Pain Scale Pain Intensity 0 - Taylor Coma Scale Best Eye Response (Taylor): (4) open spontaneously Best Verbal Response (Taylor): (5) oriented Best Motor Response (Thiells): (6) obeys commands Taylor Total: 15 - Physical Exam General Appearance: no apparent distress, alert Eye Exam: bilateral eye: PERRL, EOMI Ears, Nose, Throat Exam: normal ENT inspection, moist mucous membranes Neck Exam: normal inspection, non-tender, supple Respiratory: normal breath sounds, lungs clear, airway intact, No respiratory distress Cardiovascular: regular rate/rhythm, No edema Gastrointestinal: soft, No tenderness, No distention Back Exam: normal inspection Extremity Exam: normal inspection, No pedal edema 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, 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 Coordination/Gait: normal finger to nose, normal gait Skin Exam: normal color, warm, dry, No rash SpO2: 96 - Course Nursing assessment & vital signs reviewed: Yes Ordered Tests: Active Orders 24 hr Category Date Time Status EKG-ER Only STAT Care 03/12/19 16:22 Active NPO (ED) STAT Care 03/12/19 16:22 Active BMP Stat Lab 03/12/19 16:46 Received CBC W DIFF Stat Lab 03/12/19 16:46 Completed TROPONIN Stat Lab 03/12/19 16:46 Received Medication Summary Generic Name Dose Route Start Last Admin Trade Name Freq PRN Reason Stop Dose Admin Sodium Chloride 1,000 mls @ 999 mls/hr 03/12/19 16:23 03/12/19 16:45 Sodium Chloride 0.9% 1000 Ml IV 03/12/19 17:23 999 mls/hr .Q1H1M STA Administration Discontinued Medications Generic Name Dose Route Start Last Admin Trade Name Freq PRN Reason Stop Dose Admin Diazepam 5 mg 03/12/19 16:41 Valium 10 Mg/2 Ml Syringe IV 03/12/19 16:42 STAT ONE Sodium Chloride Confirm 03/12/19 16:40 Sodium Chloride 0.9% 1000 Ml Administered 03/12/19 16:41 Dose 1,000 mls @ ud .ROUTE .STK-MED ONE Lab/Rad Data: Laboratory Result Diagrams 03/12/19 16:46 Laboratory Results 03/12/19 Range/Units 16:46 WBC 11.5 H (4.0-10.5) K/mm3 RBC 3.70 L (4.1-5.4) M/mm3 Hgb 12.1 (12.0-16.0) gm/dl Hct 36.5 (35-47) % MCV 98.6 (78-100) fl MCH 32.7 H (26-32) pg MCHC 33.2 (32-36) g/dl RDW 12.3 (11.5-14.0) % Plt Count 329 (150-450) K/mm3 MPV 9.8 H (6-9.5) fl Gran % 70.3 H (36.0-66.0) % Eos # (Auto) 0.19 (0-0.5) Absolute Lymphs (auto) 2.44 (1.0-4.6) Absolute Monos (auto) 0.77 (0.0-1.3) Lymphocytes % 21.1 L (24.0-44.0) % Monocytes % 6.7 (0.0-12.0) % Eosinophils % 1.6 (0.00-5.0) % Basophils % 0.3 (0.0-0.4) % Absolute Granulocytes 8.11 H (1.4-6.9) Basophils # 0.03 (0-0.4) - Progress Progress: improved Counseled pt/family regarding: lab results, diagnosis, need for follow-up - Departure Departure Disposition: Home Clinical Impression: Side effect of medication Condition: Stable Critical Care Time: No Referrals: RAMILA ORDONEZ [Primary Care Provider] - Instructions: Side Effects From Medicines, Adverse Drug Reactions, Adult (DC)
[2019-03-12] MEDS ORDERED: Sodium Chloride 0.9% 1000 ML 1,000 ML ONE (16:40)
[2019-03-12 16:44] LABS: BASOPHIL % 0.3 % (0.0-0.4); Basophil (Absolute #) 0.03 (0-0.4); Eosinophil % 1.6 % (0.00-5.0); Eosinophil (Absolute #) 0.19 (0-0.5); Granulocyte Absolute (ANC) 8.11 (1.4-6.9); Granulocytes % 70.3 % (36.0-66.0); Hematocrit 36.5 % (35-47); Hemoglobin 12.1 gm/dl (12.0-16.0); Lymphocyte (Absolute #) 2.44 (1.0-4.6); Lymphocytes % 21.1 % (24.0-44.0); Mean Cell Volume 98.6 fl (78-100); Mean Corpuscular Hemoglobin 32.7 pg (26-32); Mean Corpuscular Hgb Concent. 33.2 g/dl (32-36); Mean Platelet Volume 9.8 fl (6-9.5); Monocyte (Absolute #) 0.77 (0.0-1.3); Monocytes % 6.7 % (0.0-12.0); Platelet Count 329 K/mm3 (150-450); Red Cell Distribution Width 12.3 % (11.5-14.0); White Blood Count 11.5 K/mm3 (4.0-10.5)
[2019-03-12] MEDS: Sodium Chloride 0.9% 1000 ML 1,000 ML IV STA (16:45)
[2019-03-12 17:03] LABS: BLOOD UREA NITROGEN 12 mg/dL (7-17); CHLORIDE 107 mmol/L (98-107); Calcium 9.6 mg/dL (8.4-10.2); Carbon Dioxide 24 mmol/L (22-30); Creatinine 1 0.69 mg/dL (0.52-1.04); Glucose 112 mg/dL (74-106); Potassium 3.6 mmol/L (3.5-5.1); SODIUM 139 mmol/L (137-145)
[2019-03-12 17:05] LABS: TROPONIN < 0.012 ng/mL (0.000-0.034)
[2019-03-12] MEDS ORDERED: Ativan 2 MG/1 ML VIAL ONE (17:43)
[2019-03-12] MEDS: VALIUM 10 MG/2 ML SYRINGE IV ONE (17:45)
[2019-03-12] MEDS: Ativan 2 MG/1 ML VIAL IM ONE (17:45)
[2019-03-12 17:56] VITALS: BP 143/73
== END 2019-03-12 17:59 | disposition home or self-care (01) ==
LOC: ED 15:49
DX: R20.2 Paresthesia of skin (principal); T50.905A Adverse effect of unspecified drugs, medicaments and biological substances, initial encounter
CPT/HCPCS: 36415; 80048; 84484; 85025; 93005; 96360; 96372; 99284; J2060

== ENCOUNTER 2019-07-29 19:11 | Emergency (ER) | payer OTHER ==
[2019-07-29] MEDS ORDERED: TORAdol 30 mg Injection IM ONE (19:58)
[2019-07-29] MEDS ORDERED: PERCOCET TABLET 5/325MG PO STA (19:58)
--- NOTE | 2019-07-29 19:58 | ERPHSYRPT ---
- History of Present Illness Time Seen by Provider: 07/29/19 19:45 Source: patient Exam Limitations: no limitations Patient Subjective Stated Complaint: pt states she heard a crunching noise in her lt when walking down steps and has had increased pain sine. states pain is radiating down to foot and up to hip Triage Nursing Assessment: pt alert and oreinted, answers questions approp. pt back per wheelchair. transfers to stretcher per self, limping gait noted. respirations nonlabored. skin warm and dry. pedal pulse strong. cap refill to lle wnl. Physician History: Left knee pain after feeling a crunching sound while walking down a step with her knee in flexion. Pain has maintained on the lateral aspect of her left knee for the past 8 hours. 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 Method of Injury: other (walking down steps) Occurred: this morning Quality: constant Severity of Pain-Max: severe Severity of Pain-Current: severe Lower Extremities Pain: knee: left Modifying Factors: Improves With: immobilization. Worsens With: movement Associated Symptoms: unable to bear weight, snapping sensation, other (negative evaluation prior to coming into the emergency department), No dizzy, No fainted , No seizure, No popping sensation Allergies/Adverse Reactions: Penicillins Allergy (Verified 07/29/19 21:29) Rash propoxyphene HCl [From Darvon] Allergy (Verified 07/29/19 21:29) PASS OUT Home Medications: Erenumab-Aooe [Aimovig Autoinjector] 70 mg IJ UD 02/20/19 [History] Levetiracetam 500 mg PO BID 02/20/19 [History] Oxycodone Myristate [Xtampza ER] 13.5 mg PO BID 02/20/19 [History] Propranolol HCl 20 mg [Inderal 20 MG] 18 mg PO BID 02/20/19 [History] Hx Tetanus, Diphtheria Vaccination/Date Given: Yes Hx Influenza Vaccination/Date Given: No Hx Pneumococcal Vaccination/Date Given: No Immunizations Up to Date: Yes - Review of Systems Constitutional: No Fever, No Fatigue, No Lethargy Eyes: No Eye Pain, No Vision Changes Ears, Nose, & Throat: No Nose Pain, No Epistaxis, No Mouth Pain Respiratory: No Cough, No Dyspnea Cardiac: No Chest Pain, No Palpitations, No Syncope Abdominal/Gastrointestinal: No Abdominal Pain, No Nausea, No Vomiting Genitourinary Symptoms: No Hematuria, No Flank Pain Musculoskeletal: Joint Pain (left knee lateral patella only), No Back Pain, No Neck Pain, No Joint Swelling Skin: No Pruritis, No Rash Neurological: No Focal Weakness, No Headache Psychological: No Anxiety Endocrine: No Excessive Sweating Hematologic/Lymphatic: No Easy Bleeding, No Easy Bruising All Other Systems: Reviewed and Negative - Past Medical History Pertinent Past Medical History: Yes Neurological History: Seizures ENT History: No Pertinent History Cardiac History: High Cholesterol Respiratory History: COPD Endocrine Medical History: Other Musculoskeletal History: Degenerative Disk Disease, Fibromyalgia GI Medical History: Esophageal Disorder, GERD History: No Pertinent History Psycho-Social History: Anxiety, Depression, Panic Disorder Female Reproductive Disorders: Abnormal Uterine Bleeding Other Medical History: lupus, neuropathy,ddd - Past Surgical History Past Surgical History: Yes Neuro Surgical History: No Pertinent History Cardiac: No Pertinent History Respiratory: No Pertinent History Gastrointestinal: No Pertinent History Genitourinary: No Pertinent History Musculoskeletal: Other Female Surgical History: Section, Tubal Ligation, Other Other Surgical History: ABLATION - TUBAL LIGATION. BILATERAL WRIST SURGERY. PLATE AND TWO SCREWS IN THE BACK OF NECK - Social History Smoking Status: Current every day smoker How long have you smoked: 30 Exposure to second hand smoke: Yes Drug Use: none Patient Lives Alone: No - Female History Hx Last Menstrual Period: ablation Hx Now: No - Nursing Vital Signs Nursing Vital Signs: Initial Vital Signs Temperature 98.6 F 07/29/19 19:39 Pulse Rate 92 H 07/29/19 19:39 Respiratory Rate 18 07/29/19 19:39 Blood Pressure 128/85 07/29/19 19:39 O2 Sat by Pulse Oximetry 98 07/29/19 19:39 Pain Scale Pain Intensity 8 - Physical Exam General Appearance: no apparent distress Eyes, Ears, Nose, Throat Exam: moist mucous membranes Neck Exam: normal inspection, non-tender, supple, full range of motion Cardiovascular/Respiratory Exam: normal breath sounds, regular rate/rhythm, heart sounds normal, no respiratory distress Gastrointestinal/Abdominal Exam: non-tender, soft Back Exam: normal inspection, normal range of motion, No CVA tenderness Hips Exam: bilateral: non-tender, normal inspection, normal range of motion, no evidence of injury Legs Exam: bilateral leg: non-tender, normal inspection, normal range of motion , no evidence of injury Knees Exam: left knee: bone tenderness (left lateral patella), pain, bilateral knee: normal inspection, normal range of motion Ankle Exam: bilateral ankle: non-tender, normal inspection, normal range of motion, no evidence of injury Foot Exam: bilateral foot: non-tender, normal inspection, normal range of motion , no evidence of injury DTR - Lower Extremities Exam: ankle (R): 2+, ankle (L): 2+ Neuro/Tendon Exam: normal sensation, normal motor functions, normal tendon functions, responds to pain, no evidence tendon injury Mental Status Exam: alert, 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, cooperative Skin Exam: normal color, warm, dry, No rash, No petechiae SpO2 Interpretation: normal SpO2: 98 O2 Delivery: Room Air - Course Nursing assessment & vital signs reviewed: Yes - Radiology Exams Left Knee X-ray Interpretation: Interpreted by me, Reviewed by me, No Fracture, No Subluxation, Nml Alignment, Nml Soft Tissues Ordered Tests: Active Orders 24 hr Category Date Time Status KNEE (3 VIEWS) Stat Exams 07/29/19 20:15 Taken Medication Summary Discontinued Medications Generic Name Dose Route Start Last Admin Trade Name Freq PRN Reason Stop Dose Admin Hydromorphone HCl 1 mg 07/29/19 21:37 07/29/19 21:44 Hydromorphone 1 Mg/Ml Ampule IM 07/29/19 21:38 1 mg STAT ONE Administration Hydromorphone HCl Confirm 07/29/19 21:43 Hydromorphone 1 Mg/Ml Ampule Administered 07/29/19 21:44 Dose 1 mg .ROUTE .STK-MED ONE Ketorolac Tromethamine 60 mg 07/29/19 19:58 07/29/19 20:05 Toradol 30 Mg Injection IM 07/29/19 19:59 60 mg STAT ONE Administration Ketorolac Tromethamine Confirm 07/29/19 20:00 Toradol 30 Mg Injection Administered 07/29/19 20:01 Dose 60 mg .ROUTE .STK-MED ONE Oxycodone/Acetaminophen 1 tab 07/29/19 19:58 07/29/19 20:02 Percocet Tablet 5/325mg PO 07/29/19 19:59 1 tab STAT STA Administration Oxycodone/Acetaminophen Confirm 07/29/19 20:01 Percocet Tablet 5/325mg Administered 07/29/19 20:02 Dose 1 tab .ROUTE .STK-MED ONE - Progress Progress: unchanged (21:30) Progress Note: 07/29/19 21:30 Patient still having significant amount of pain. 07/29/19 22:29 Pain has significantly improved Counseled pt/family regarding: diagnosis, need for follow-up, rad results - Departure Departure Disposition: Home Clinical Impression: Patellofemoral arthralgia of left knee, Elevated blood pressure reading without diagnosis of hypertension, Left anterior knee pain Condition: Good Critical Care Time: No Referrals: RAMILA ORDONEZ [Primary Care Provider] - [facility] M-F [id number] Instructions: Knee Sprain (DC), Knee Pain (DC) Additional Instructions: we will notify you if Radiologist interprets anything different from this evening's negative x-ray result. Prescriptions: Etodolac 400 mg [Lodine 400 mg] 400 mg PO BID PRN PRN #20 tablet PRN Reason: Pain
[2019-07-29] MEDS ORDERED: TORAdol 30 mg Injection ONE (20:00)
[2019-07-29] MEDS ORDERED: PERCOCET TABLET 5/325MG ONE (20:01)
[2019-07-29 21:13] VITALS: BP 122/84; PULSE 84
[2019-07-29] MEDS ORDERED: Hydromorphone 1 mg/ml Ampule IM ONE (21:37)
[2019-07-29 21:39] VITALS: O2SAT 98
[2019-07-29] MEDS ORDERED: Hydromorphone 1 mg/ml Ampule ONE (21:43)
--- NOTE | 2019-07-29 23:58 | XRAY ---
Indication: Anterior knee pain. No known injury. History lupus. Comparison: None 3 views of the left knee demonstrates minimal medial joint space narrowing/spurring and posterior fabella. No other bony, articular, or soft tissue abnormalities.
== END 2019-07-29 22:38 | disposition home or self-care (01) ==
LOC: ED 19:11
DX: M25.562 Pain in left knee (principal); R03.0 Elevated blood-pressure reading, without diagnosis of hypertension; M25.862 Other specified joint disorders, left knee; Z79.899 Other long term (current) drug therapy
CPT/HCPCS: 73562; 96372; 99284; J1170; J1885; A9270-GY

== ENCOUNTER 2019-08-28 10:07 | Emergency (ER) | payer OTHER ==
[2019-08-28] MEDS ORDERED: Hydromorphone 1 mg/ml Ampule ONE (11:34)
[2019-08-28 11:40] VITALS: BP 125/72; PULSE 68; O2SAT 98
[2019-08-28] MEDS ORDERED: Hydromorphone 1 mg/ml Ampule IM ONE (11:41)
--- NOTE | 2019-08-28 11:53 | ERPHSYRPT ---
- History of Present Illness Time Seen by Provider: 08/28/19 10:30 Source: patient Exam Limitations: no limitations Patient Subjective Stated Complaint: Lower back pain Triage Nursing Assessment: Patient ambulated back to ED and transferred self to bed. Patient A+O X 3. Patient's skin pink, warm and dry. Patient complains of lower back pain constant stabbing and squeezing 05/28. Patient complains of kalee arms being heavy and burning and tingling. Patient denies injury and states pain started last night. No visible injuries noted to lower back. Patient has hx of chronic back pain. 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 She is followed by Dr. Gay at in [place] at her pain clinic. She is scheduled for a spinal block in the distant future she also is scheduled for some further x-rays there soon she has not had an MRI or CT scan at this facility a long time. This pain seems to be different than her chronic pain she describes as burning in nature that goes from the mid back down to the right SI area. She denies any bowel or bladder problems.) Quality: burning Back Pain Location: lumbar spine, paraspinous muscles Back Pain Radiation: buttocks Severity of Pain-Max: severe Severity of Pain-Current: severe Modifying Factors: Improves With: nothing Associated Symptoms: nausea, No urinary incontinence, No loss of bowel control, No problems urinating Previous symptoms: different symptoms Allergies/Adverse Reactions: Penicillins Allergy (Verified 08/28/19 10:16) Rash propoxyphene HCl [From Darvon] Allergy (Verified 08/28/19 10:16) PASS OUT Home Medications: Erenumab-Aooe [Aimovig Autoinjector] 70 mg IJ UD 02/20/19 [History] Levetiracetam 500 mg PO BID 02/20/19 [History] Oxycodone Myristate [Xtampza ER] 13.5 mg PO BID 02/20/19 [History] Propranolol HCl 20 mg [Inderal 20 MG] 18 mg PO BID 02/20/19 [History] Hx Tetanus, Diphtheria Vaccination/Date Given: Yes Hx Influenza Vaccination/Date Given: No Hx Pneumococcal Vaccination/Date Given: No Immunizations Up to Date: Yes - Review of Systems Constitutional: No Fever, No Chills Eyes: No Symptoms Ears, Nose, & Throat: No Symptoms Respiratory: No Cough, No Dyspnea Cardiac: No Chest Pain, No Edema, No Syncope Abdominal/Gastrointestinal: No Abdominal Pain, No Nausea, No Vomiting, No Diarrhea Genitourinary Symptoms: No Dysuria Musculoskeletal: Back Pain, Neck Pain Skin: No Rash Neurological: No Dizziness, No Focal Weakness, No Sensory Changes Psychological: No Symptoms Endocrine: No Symptoms All Other Systems: Reviewed and Negative - Past Medical History Pertinent Past Medical History: Yes Neurological History: Seizures ENT History: No Pertinent History Cardiac History: High Cholesterol Respiratory History: COPD Endocrine Medical History: Other Musculoskeletal History: Degenerative Disk Disease, Fibromyalgia GI Medical History: Esophageal Disorder, GERD History: No Pertinent History Psycho-Social History: Anxiety, Depression, Panic Disorder Female Reproductive Disorders: Abnormal Uterine Bleeding Other Medical History: lupus, neuropathy,ddd - Past Surgical History Past Surgical History: Yes Neuro Surgical History: No Pertinent History Cardiac: No Pertinent History Respiratory: No Pertinent History Gastrointestinal: No Pertinent History Genitourinary: No Pertinent History Musculoskeletal: Other Female Surgical History: Section, Tubal Ligation, Other Other Surgical History: ABLATION - TUBAL LIGATION. BILATERAL WRIST SURGERY. PLATE AND TWO SCREWS IN THE BACK OF NECK - Social History Smoking Status: Current every day smoker How long have you smoked: years Exposure to second hand smoke: Yes Drug Use: none Patient Lives Alone: No - Female History Hx Now: No - Nursing Vital Signs Nursing Vital Signs: Initial Vital Signs Temperature 97.9 F 08/28/19 10:17 Pulse Rate 92 H 08/28/19 10:17 Respiratory Rate 20 08/28/19 10:17 Blood Pressure 129/89 08/28/19 10:17 O2 Sat by Pulse Oximetry 97 08/28/19 10:17 Pain Scale Pain Intensity 8 - Physical Exam General Appearance: moderate distress, alert Eye Exam: PERRL/EOMI, eyes nml inspection Neck Exam: normal inspection, non-tender, supple, full range of motion, No meningismus, No midline tenderness Respiratory Exam: normal breath sounds, lungs clear, No respiratory distress Cardiovascular Exam: regular rate/rhythm, normal heart sounds Gastrointestinal Exam: soft, No tenderness, No mass Back Exam: vertebral tenderness, decreased range of motion, muscle spasm (and) Extremity Exam: normal inspection, normal range of motion, No calf tenderness, No pedal edema Peripheral Pulses: carotid (R): 2+, carotid (L): 2+ ( in) Neurologic Exam: alert, 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, cooperative, 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 nml as tested, normal mood/affect, nml station & gait, sensation nml, No motor deficits Skin Exam: normal color, warm, dry, No rash SpO2: 98 - CT Exams Lumbar Spine CT Interpretation: Other (CT scan shows multilevel disc bulging and mild to moderate multilevel canal stenosis from L2-L5) Ordered Tests: Active Orders 24 hr Category Date Time Status LUMBAR SPINE W/O [CT] Stat Exams 08/28/19 11:22 Taken Medication Summary Discontinued Medications Generic Name Dose Route Start Last Admin Trade Name Manish PRN Reason Stop Dose Admin Hydromorphone HCl Confirm 08/28/19 11:34 Hydromorphone 1 Mg/Ml Ampule Administered 08/28/19 11:35 Dose 1 mg .ROUTE .STK-MED ONE Hydromorphone HCl 1 mg 08/28/19 11:41 08/28/19 11:47 Hydromorphone 1 Mg/Ml Ampule IM 08/28/19 11:42 1 mg STAT ONE Administration - Progress Progress: pain not gone completely (patient is on chronic pain management cannot be given any prescription for controlled substances she's been treated with Dilaudid here and will continue her home medicines. She was instructed to contact her pain medicine doctor tomorrow to notify her of the continued worsening of her pain.) Counseled pt/family regarding: diagnosis, need for follow-up, rad results - Departure Departure Disposition: Home Clinical Impression: Chronic low back pain Condition: Stable Critical Care Time: No Referrals: RAMILA MCCLURE FNP [Primary Care Provider] - Instructions: Low Back Pain (DC) Plan of Treatment: ppatient was told to followup with her chronic pain specialist
--- NOTE | 2019-08-28 19:12 | XRAY ---
Indication: Low back pain with right sciatica. Multiple contiguous axial images obtained through the lumbar spine. Sagittal and coronal reformatted images obtained. Comparison: None. There is a lumbar radiograph January 19, 2019. Mild L4-L5 annular disc bulge with mild bilateral degenerative facet and ligament flavum hypertrophy narrows the spinal canal and produces bilateral foraminal narrowing. Moderate bilateral L5-S1 degenerative facet hypertrophy. No acute fracture, suspicious bony lesions, or spinal canal stenosis. Sagittal and coronal reformatted images demonstrates normal lumbar lordosis with minimal levoscoliosis centered at L3. Vertebral body heights and disc spaces maintained. No acute compression fracture or subluxation. Visualized noncontrasted soft tissues demonstrates a few nonobstructing punctate calculus in each kidney. Impression: 1. L4-L5 degenerative disc bulge and bilateral facet/ligament flavum hypertrophy with subsequent spinal canal narrowing. 2. Minimal levoscoliosis. 3. Nonobstructing bilateral renal micro-calculi. Comment: Preliminary interpretation was made by [facility]. No critical discrepancy. CTDI 27.21
== END 2019-08-28 12:38 | disposition home or self-care (01) ==
LOC: ED 10:07
DX: M54.5 Low back pain (principal); G89.29 Other chronic pain
CPT/HCPCS: 72131; 96372; 99284; J1170

== ENCOUNTER 2019-11-12 19:35 | Emergency (ER) | payer OTHER ==
[2019-11-12] MEDS ORDERED: TORAdol 30 mg Injection IM ONE (19:49)
[2019-11-12] MEDS ORDERED: Phenergan 25 MG INJ IM ONE (19:49)
[2019-11-12] MEDS ORDERED: TORAdol 30 mg Injection ONE (19:54)
[2019-11-12] MEDS ORDERED: Phenergan 25 MG INJ ONE (19:54)
[2019-11-12 20:02] VITALS: BP 115/84; PULSE 72; O2SAT 99
--- NOTE | 2019-11-12 20:02 | ERPHSYRPT ---
- History of Present Illness Time Seen by Provider: 11/12/19 19:59 Patient Subjective Stated Complaint: Patient states her Migraine flared up today. Patient states the back of her head and around her forehead is a throbbing pain that is sharp and constant. Triage Nursing Assessment: Patient ambulated to room with steady gait. Patient alert and orientated times 4. Patient answers questions appropriatley. Patient calm and cooperative. Bilateral pupils brisk and reative to light. 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 Central color WNL. Physician History: Patient states her Migraine flared up today. Patient states the back of her head and around her forehead is a throbbing pain that is sharp and constant. Pain is in occipital area of head Timing/Duration: today Quality: throbbing Head Pain Location: occipital Severity of Pain-Max: moderate Severity of Pain-Current: moderate Recent Head Trauma: frequent headaches Associated Symptoms: denies symptoms Previous symptoms: same symptoms as today Allergies/Adverse Reactions: Penicillins Allergy (Verified 11/12/19 19:41) Rash propoxyphene HCl [From Darvon] Allergy (Verified 11/12/19 19:41) PASS OUT Home Medications: Erenumab-Aooe [Aimovig Autoinjector] 70 mg IJ UD 02/20/19 [History] Levetiracetam 500 mg PO BID 02/20/19 [History] Oxycodone Myristate [Xtampza ER] 13.5 mg PO BID 02/20/19 [History] Propranolol HCl 20 mg [Inderal 20 MG] 18 mg PO BID 02/20/19 [History] Hx Tetanus, Diphtheria Vaccination/Date Given: Yes Hx Influenza Vaccination/Date Given: Yes Hx Pneumococcal Vaccination/Date Given: No Immunizations Up to Date: Yes - Review of Systems Constitutional: No Fever, No Chills Eyes: No Symptoms Ears, Nose, & Throat: No Symptoms Respiratory: No Cough, No Dyspnea Cardiac: No Chest Pain, No Edema, No Syncope Abdominal/Gastrointestinal: No Abdominal Pain, No Nausea, No Vomiting, No Diarrhea Genitourinary Symptoms: No Dysuria Musculoskeletal: No Back Pain, No Neck Pain Skin: No Rash Neurological: Headache, No Dizziness, No Focal Weakness, No Sensory Changes Psychological: No Symptoms Endocrine: No Symptoms All Other Systems: Reviewed and Negative - Past Medical History Pertinent Past Medical History: Yes Neurological History: Seizures ENT History: No Pertinent History Cardiac History: High Cholesterol Respiratory History: COPD Endocrine Medical History: Other Musculoskeletal History: Degenerative Disk Disease, Fibromyalgia GI Medical History: Esophageal Disorder, GERD History: No Pertinent History Psycho-Social History: Anxiety, Depression, Panic Disorder Female Reproductive Disorders: Abnormal Uterine Bleeding Other Medical History: lupus, neuropathy,ddd - Past Surgical History Past Surgical History: Yes Neuro Surgical History: No Pertinent History Cardiac: No Pertinent History Respiratory: No Pertinent History Gastrointestinal: No Pertinent History Genitourinary: No Pertinent History Musculoskeletal: Other Female Surgical History: Section, Tubal Ligation, Other Other Surgical History: ABLATION - TUBAL LIGATION. BILATERAL WRIST SURGERY. PLATE AND TWO SCREWS IN THE BACK OF NECK - Social History Smoking Status: Current every day smoker How long have you smoked: 18 years Exposure to second hand smoke: Yes Drug Use: none Patient Lives Alone: No - Female History Hx Last Menstrual Period: ablation Hx Now: No - Nursing Vital Signs Nursing Vital Signs: Initial Vital Signs Temperature 98.2 F 11/12/19 19:44 Pulse Rate 82 11/12/19 19:44 Respiratory Rate 20 11/12/19 19:44 Blood Pressure 138/93 11/12/19 19:44 O2 Sat by Pulse Oximetry 100 11/12/19 19:44 Pain Scale Pain Intensity 6 - Physical Exam General Appearance: no apparent distress Eye Exam: PERRL/EOMI Ears, Nose, Throat Exam: normal ENT inspection, moist mucous membranes Neck Exam: normal inspection, supple, full range of motion, No meningismus Respiratory Exam: normal breath sounds, lungs clear Cardiovascular Exam: regular rate/rhythm, normal heart sounds Gastrointestinal/Abdominal Exam: soft, No tenderness, No distention Back Exam: normal inspection, normal range of motion Mental Status Exam: alert, 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, cooperative contour sander Exam: normal speech, PERRL, No facial droop Coordination/Gait Exam: normal cerebellar function Motor/Sensory Exam: no motor deficit, no sensory deficit Skin Exam: normal color, warm, dry, No rash SpO2: 100 - Course Nursing assessment & vital signs reviewed: Yes Ordered Tests: Medication Summary Discontinued Medications Generic Name Dose Route Start Last Admin Trade Name Freq PRN Reason Stop Dose Admin Ketorolac Tromethamine 60 mg 11/12/19 19:49 11/12/19 19:55 Toradol 30 Mg Injection IM 11/12/19 19:50 60 mg STAT ONE Administration Ketorolac Tromethamine Confirm 11/12/19 19:54 Toradol 30 Mg Injection Administered 11/12/19 19:55 Dose 60 mg .ROUTE .STK-MED ONE Promethazine HCl 25 mg 11/12/19 19:49 11/12/19 19:56 Phenergan 25 Mg Inj IM 11/12/19 19:50 25 mg STAT ONE Administration Promethazine HCl Confirm 11/12/19 19:54 Phenergan 25 Mg Inj Administered 11/12/19 19:55 Dose 25 mg .ROUTE .STK-MED ONE - Progress Progress: improved Air Movement: good Counseled pt/family regarding: diagnosis, need for follow-up - Departure Departure Disposition: Home Clinical Impression: Migraine headache without aura Qualifiers: Status migrainosus presence: without status migrainosus Intractability: not intractable Qualified Code(s): G43.009 - Migraine without aura, not intractable , without status migrainosus Condition: Stable Critical Care Time: No Referrals: MOHIT SCHROEDER MD [Primary Care Provider] - Instructions: Headache, Adult (DC), Migraine Headache (DC) Additional Instructions: Discharge/Care Plan CESAR AGUSTIN was seen on 11/12/19 in the Emergency Room. The patient was counseled regarding Diagnosis,Lab results, Imaging studies, need for follow up and when to return to the Emergency Room. Prescriptions given: Discharge Note I have spoken with the patient and/or caregivers. I have explained the patient' s condition, diagnosis and treatment plan based on the information available to me at this time. I have answered the patient's and/or caregiver's questions and addressed any concerns. The patient and/or caregivers have as good understanding of the patient's diagnosis, condition and treatment plan as can be expected at this point. The vital signs have been stable. The patient's condition is stable and appropriate for discharge from the emergency department. The patient will pursue further outpatient evaluation with the primary care physician or other designated or consulting physician as outlined in the discharge instructions. The patient and/or caregivers are agreeable to this plan of care and follow-up instructions have been explained in detail. The patient and/or caregivers have received these instruction. The patient/and or caregivers are aware that any significant change in condition or worsening of symptoms should prompt an immediate return to this or the closest emergency department or call 911. CESAR AGUSTIN was seen on 11/12/19 n the Emergency Room. At that time you were treated for an emergent condition, during your visit Laboratory, Radiology and/or other procedures may have been ordered. It is very important that you follow-up with your Primary Care Physician MOHIT SCHROEDER MD within the next 24-48 hours to review your Emergency Room visit and the final results of testing that was ordered. Some test results such as Urine Cultures, Blood Cultures, and other cultures if ordered will not be finalized for 24-48 hours. If you do not have a Primary Care Provider please call the medical records department at [phone] to obtain a copy of your results or you may sign into our patient portal to obtain these results by visiting us @ [email or web address] and completing the following steps: 1. Click on the Patient Portal link 2. Click the Patient Self Enrollment Link to complete the enrollment form and entering your 3. Once the enrollment form is completed you will receive an email with a temporary ID and password at the email address you provided. 4. Next choose a user name and password. Your user name must be at least 4 characters long and your password must be at least 4 characters long. 5. Choose a security question from the list and provide your answer to the question. If you already have signed into the Health Portal you may access your Health Care Information 11/05 by the following steps: 1. Login to our website @ [email or web address] 2. Enter your original user name and password. FAQS The [facility] Health Portal is an online tool that contains your Lab Results, Radiology Reports, Visit History, Discharge Instructions and Health Summary Lab and Radiology Results will not be available for 72 hours on the portal. The Portal is a secure site, passwords are encryted and URLs are re-written so they cannot be copied and pasted. You and authorized family members are the only ones who can access your Portal. Also there is a timeout feature that protects your information if you leave the Portal page open. If you have technical difficulty please use the Contact Us link on the page this will allow you to submit any questions you have regarding the Portal or you may contact the Medical Record Department at [phone].
== END 2019-11-12 20:21 | disposition home or self-care (01) ==
LOC: ED 19:35
DX: G43.009 Migraine without aura, not intractable, without status migrainosus (principal)
CPT/HCPCS: 96372; 99284; J1885; J2550

== ENCOUNTER 2019-12-19 12:21 | Emergency (ER) | payer OTHER ==
--- NOTE | 2019-12-19 12:35 | ERPHSYRPT ---
- History of Present Illness Time Seen by Provider: 12/19/19 12:35 Source: patient Exam Limitations: no limitations Physician History: This is a 44-year-old female who has a known ulceration/lesion in the roof of her mouth on the left side. Patient is a chronic smoker of cigarettes. Patient was seen at [facility] for this and referred to the patient's primary care doctor for further management. The patient has an appointment tomorrow for evaluation of this ulceration in the patient's mouth. The patient' s primary complaint today is that she is short of breath. Is been present for couple days. She has no chest pain she has no abdominal pain she denies nausea vomiting and diarrhea. Patient appears anxious. Patient has a history of anxiety, panic disorder and depression. Timing/Duration: gradual onset, intermittent Severity: moderate Prearrival Treatment: no prearrival treatment Modifying Factors: Improves With: activity, exertion Associated Symptoms: denies symptoms, No headache, No sore throat, No tooth pain , No difficulty swallowing, No voice change Allergies/Adverse Reactions: Penicillins Allergy (Verified 11/12/19 19:41) Rash propoxyphene HCl [From Darvon] Allergy (Verified 11/12/19 19:41) PASS OUT Home Medications: Erenumab-Aooe [Aimovig Autoinjector] 70 mg IJ UD 02/20/19 [History] Levetiracetam 500 mg PO BID 02/20/19 [History] Oxycodone Myristate [Xtampza ER] 13.5 mg PO BID 02/20/19 [History] Propranolol HCl 20 mg [Inderal 20 MG] 18 mg PO BID 02/20/19 [History] Hx Tetanus, Diphtheria Vaccination/Date Given: Yes Hx Influenza Vaccination/Date Given: Yes Hx Pneumococcal Vaccination/Date Given: No - Review of Systems Constitutional: No Symptoms Eyes: No Symptoms Ears, Nose, & Throat: No Symptoms Respiratory: Dyspnea (Mild with exertion), No Cough, No Stridor, No Wheezing Cardiac: No Symptoms, No Chest Pain, No Palpitations Abdominal/Gastrointestinal: No Symptoms Genitourinary Symptoms: No Symptoms Musculoskeletal: No Symptoms Skin: No Symptoms Neurological: No Symptoms Psychological: No Symptoms Endocrine: No Symptoms Hematologic/Lymphatic: No Symptoms Immunological/Allergic: No Symptoms All Other Systems: Reviewed and Negative - Past Medical History Pertinent Past Medical History: Yes Neurological History: Seizures ENT History: No Pertinent History Cardiac History: High Cholesterol Respiratory History: COPD Endocrine Medical History: Other Musculoskeletal History: Degenerative Disk Disease, Fibromyalgia GI Medical History: Esophageal Disorder, GERD History: No Pertinent History Psycho-Social History: Anxiety, Depression, Panic Disorder Female Reproductive Disorders: Abnormal Uterine Bleeding Other Medical History: lupus, neuropathy,ddd - Past Surgical History Past Surgical History: Yes Neuro Surgical History: No Pertinent History Cardiac: No Pertinent History Respiratory: No Pertinent History Gastrointestinal: No Pertinent History Genitourinary: No Pertinent History Musculoskeletal: Other Female Surgical History: Section, Tubal Ligation, Other Other Surgical History: ABLATION - TUBAL LIGATION. BILATERAL WRIST SURGERY. PLATE AND TWO SCREWS IN THE BACK OF NECK - Social History Smoking Status: Current every day smoker How long have you smoked: 18 years Exposure to second hand smoke: Yes Drug Use: none Patient Lives Alone: No - Nursing Vital Signs Nursing Vital Signs: Initial Vital Signs Temperature 98.8 F 12/19/19 12:49 Pulse Rate 79 12/19/19 12:49 Respiratory Rate 20 12/19/19 12:49 Blood Pressure 127/81 12/19/19 12:49 O2 Sat by Pulse Oximetry 100 12/19/19 12:49 Pain Scale Pain Intensity 0 - Physical Exam General Appearance: no apparent distress, alert, anxiety Eye Exam: bilateral eye: normal inspection, PERRL, EOMI Ear Exam: bilateral ear: auricle normal, canal normal, TM normal Nasal Exam: normal inspection Throat Exam: pharynx normal, moist mucus membranes (The patient has moist mucous membranes. She has fibrous exudate and ulceration on the left side posteriorly beyond the region of her molars on that side. There does not appear to be any abscess pocket or drainage.) Neck Exam: normal inspection, non-tender, supple, full range of motion, trachea midline, No lymphadenopathy (R), No lymphadenopathy (L) Cardiovascular/Respiratory Exam: chest non-tender, normal breath sounds, regular rate/rhythm, heart sounds normal Abdominal Exam: non-tender, soft, No guarding, No tenderness Neurologic Exam: alert, 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, cooperative, zigzag tunnel elastic operator II-XII nml as tested, nml cerebellar function, nml station & gait Skin Exam: normal color, warm, dry SpO2 Interpretation: normal O2 Delivery: Room Air - Course Nursing assessment & vital signs reviewed: Yes EKG Interpreted by Me: RATE (69), Sinus Rhythm, NORMAL AXIS, NORMAL INTERVALS, NORMAL QRS, Other (no comparison) Ordered Tests: Active Orders 24 hr Category Date Time Status Biophysics Scientist STAT Care 12/19/19 13:33 Active EKG-ER Only STAT Care 12/19/19 13:32 Active IV Insertion STAT Care 12/19/19 13:32 Active CHEST 1 VIEW (PORTABLE) Stat Exams 12/19/19 13:32 Completed CBC W DIFF Stat Lab 12/19/19 14:10 Completed CMP Stat Lab 12/19/19 14:10 Completed CULTURE,URINE Stat Lab 12/19/19 14:14 Received UA W/RFX UR CULTURE Stat Lab 12/19/19 14:14 Completed Medication Summary Discontinued Medications Generic Name Dose Route Start Last Admin Trade Name Freq PRN Reason Stop Dose Admin Sodium Chloride 1,000 mls @ 999 mls/hr 12/19/19 13:32 12/19/19 14:19 Sodium Chloride 0.9% 1000 Ml IV 12/19/19 14:32 Not Given .Q1H1M STA Lab/Rad Data: Laboratory Result Diagrams 12/19/19 14:10 12/19/19 14:10 Laboratory Results 12/19/19 12/19/19 12/19/19 Range/Units 14:14 14:10 14:10 WBC 9.0 (4.0-10.5) K/mm3 RBC 4.09 L (4.1-5.4) M/mm3 Hgb 13.5 (12.0-16.0) gm/dl Hct 40.6 (35-47) % MCV 99.3 (78-100) fl MCH 33.0 H (26-32) pg MCHC 33.3 (32-36) g/dl RDW 13.0 (11.5-14.0) % Plt Count 365 (150-450) K/mm3 MPV 9.8 (7.5-11.0) fl Gran % 56.4 (36.0-66.0) % Eos # (Auto) 0.26 (0-0.5) Absolute Lymphs (auto) 2.84 (1.0-4.6) Absolute Monos (auto) 0.76 (0.0-1.3) Lymphocytes % 31.5 (24.0-44.0) % Monocytes % 8.4 (0.0-12.0) % Eosinophils % 2.9 (0.00-5.0) % Basophils % 0.8 (0.0-0.4) % Absolute Granulocytes 5.09 (1.4-6.9) Basophils # 0.07 (0-0.4) Sodium 144 (137-145) mmol/L Potassium 3.6 (3.5-5.1) mmol/L Chloride 108 H (98-107) mmol/L Carbon Dioxide 27 (22-30) mmol/L Anion Gap 12.1 (5-15) MEQ/L BUN 16 (7-17) mg/dL Creatinine 0.70 (0.52-1.04) mg/dL Estimated GFR > 60.0 ML/MIN Glucose 83 (74-106) mg/dL Calcium 9.6 (8.4-10.2) mg/dL Total Bilirubin 0.60 (0.2-1.3) mg/dL AST 19 (14-36) U/L ALT 10 (0-35) U/L Alkaline Phosphatase 60 (38-126) U/L Serum Total Protein 7.8 (6.3-8.2) g/dL Albumin 4.5 (3.5-5.0) g/dL Urine Color YELLOW (YELLOW) Urine Appearance CLOUDY (CLEAR) Urine pH 8.0 (5-6) Ur Specific [place] 1.018 (1.005-1.025) Urine Protein NEGATIVE (Negative) Urine Ketones NEGATIVE (NEGATIVE) Urine Blood NEGATIVE (0-5) Ross/ul Urine Nitrite NEGATIVE (NEGATIVE) Urine Bilirubin NEGATIVE (NEGATIVE) Urine Urobilinogen NEGATIVE (0-1) mg/dL Ur Leukocyte Esterase NEGATIVE (NEGATIVE) Urine WBC (Auto) 6-10 (0-5) /HPF Urine RBC (Auto) 3-5 (0-2) /HPF U Epithel Cells (Auto) RARE (FEW) /HPF Urine Bacteria (Auto) RARE (NEGATIVE) /HPF Amorphous Crystals FEW (NEGATIVE) /HPF Urine Mucus (Auto) SLIGHT (NEGATIVE) /HPF Urine Culture Reflexed YES (NO) Urine Glucose NEGATIVE (NEGATIVE) mg/dL - Progress Progress: unchanged Progress Note: 12/19/19 14:56 Chest x-ray reveals no acute process Counseled pt/family regarding: lab results, diagnosis, need for follow-up, rad results - Departure Departure Disposition: Home Clinical Impression: Shortness of breath Condition: Stable Critical Care Time: No Referrals: MOHIT SCHROEDER MD [Primary Care Provider] - Additional Instructions: Follow-up with your primary care physician tomorrow for further management. Take your medications as prescribed
[2019-12-19] MEDS ORDERED: Sodium Chloride 0.9% 1000 ML 1,000 ML IV STA (13:32)
--- NOTE | 2019-12-19 14:01 | XRAY ---
Indication: Short of breath. Comparison: August 22, 2019. Portable chest again demonstrates normal heart and lungs. Bony thorax intact again with lower cervical fusion surgery. No new/acute findings.
[2019-12-19 14:19] LABS: Absolute Neutrophil Ct (ANC) 5.09 (1.4-6.9); BASOPHIL % 0.8 % (0.0-0.4); Basophil (Absolute #) 0.07 (0-0.4); Eosinophil % 2.9 % (0.00-5.0); Eosinophil (Absolute #) 0.26 (0-0.5); Hematocrit 40.6 % (35-47); Hemoglobin 13.5 gm/dl (12.0-16.0); Lymphocyte (Absolute #) 2.84 (1.0-4.6); Lymphocytes % 31.5 % (24.0-44.0); Mean Cell Volume 99.3 fl (78-100); Mean Corpuscular Hgb Concent. 33.3 g/dl (32-36); Mean Platelet Volume 9.8 fl (7.5-11.0); Monocyte (Absolute #) 0.76 (0.0-1.3); Monocytes % 8.4 % (0.0-12.0); Neutrophil % 56.4 % (36.0-66.0); Platelet Count 365 K/mm3 (150-450); Red Blood Count 4.09 M/mm3 (4.1-5.4)
[2019-12-19 14:29] LABS: Amourphous Crystal FEW /HPF (NEGATIVE); Appearance CLOUDY (CLEAR); Bacteria RARE /HPF (NEGATIVE); Bilirubin NEGATIVE (NEGATIVE); Blood NEGATIVE Ery/ul (0-5); Epithelial Cells RARE /HPF (FEW); Glucose NEGATIVE (NEGATIVE); Ketones NEGATIVE (NEGATIVE); Leukocyte Esterase NEGATIVE (NEGATIVE); Mucus SLIGHT /HPF (NEGATIVE); Nitrite NEGATIVE (NEGATIVE); Protein,Urine Dip NEGATIVE (Negative); Specific Gravity 1.018 (1.005-1.025); Urobilinogen NEGATIVE mg/dL (0-1)
[2019-12-19 14:30] LABS: ALBUMIN 4.5 g/dL (3.5-5.0); ALKALINE PHOSPHATASE 60 U/L (38-126); ANION GAP 12.1 MEQ/L (5-15); BLOOD UREA NITROGEN 16 mg/dL (7-17); CHLORIDE 108 mmol/L (98-107); Calcium 9.6 mg/dL (8.4-10.2); Carbon Dioxide 27 mmol/L (22-30); Glucose 83 mg/dL (74-106); Potassium 3.6 mmol/L (3.5-5.1); SGOT/AST 19 U/L (14-36); SGPT/ALT 10 U/L (0-35); SODIUM 144 mmol/L (137-145); Total Protein 7.8 g/dL (6.3-8.2)
[2019-12-19 15:01] VITALS: BP 120/64; PULSE 68; O2SAT 99
== END 2019-12-19 15:06 | disposition home or self-care (01) ==
LOC: ED 12:21
DX: R06.02 Shortness of breath (principal); Z79.899 Other long term (current) drug therapy
CPT/HCPCS: 36000; 36415; 71045; 80053; 81001; 85025; 87086; 93005; 93041; 99284

== ENCOUNTER 2020-04-09 11:37 | Emergency (ER) | payer OTHER ==
--- NOTE | 2020-04-09 11:40 | ERPHSYRPT ---
- History of Present Illness Time Seen by Provider: 04/09/20 11:40 Source: patient Exam Limitations: no limitations Physician History: This is a 44-year-old white female who [place] [employer]. She was putting it back on a trailer when a portion of the trailer ran over her left foot. There was pain present. However, she did go to bed last night woke up this morning with significant pain on the dorsal aspect of her left foot. She is concerned of a fracture and therefore she is here for evaluation. Method of Injury: direct blow Occurred: yesterday Quality: constant, aching Severity of Pain-Max: moderate Severity of Pain-Current: moderate Lower Extremities Pain: foot: left Modifying Factors: Improves With: movement Associated Symptoms: other (Hurts to bear weight) Allergies/Adverse Reactions: Penicillins Allergy (Verified 11/12/19 19:41) Rash propoxyphene HCl [From Darvon] Allergy (Verified 11/12/19 19:41) PASS OUT hydromorphone [From Dilaudid] Adverse Reaction (Verified 04/09/20 11:46) Patient states pill form caused her to become mean and start having blisters in her mouth and nose. Home Medications: Erenumab-Aooe [Aimovig Autoinjector] 70 mg IJ UD 02/20/19 [History] Levetiracetam 500 mg PO BID 02/20/19 [History] Propranolol HCl 20 mg [Inderal 20 MG] 18 mg PO BID 02/20/19 [History] Hx Tetanus, Diphtheria Vaccination/Date Given: Yes Hx Influenza Vaccination/Date Given: Yes Hx Pneumococcal Vaccination/Date Given: No Travel Risk - International Travel Have you traveled outside of the country in past 3 weeks: No - Coronavirus Screening Are you exhibiting any of the following symptoms?: No Close contact with a COVID-19 positive Pt in past 14-21 Days: No - Review of Systems Constitutional: No Symptoms Eyes: No Symptoms Ears, Nose, & Throat: No Symptoms Respiratory: No Symptoms Cardiac: No Symptoms Abdominal/Gastrointestinal: No Symptoms Genitourinary Symptoms: No Symptoms Musculoskeletal: Injury Skin: No Symptoms (Left foot) Neurological: No Symptoms Psychological: No Symptoms Endocrine: No Symptoms Hematologic/Lymphatic: No Symptoms Immunological/Allergic: No Symptoms All Other Systems: Reviewed and Negative - Past Medical History Pertinent Past Medical History: Yes Neurological History: Seizures ENT History: No Pertinent History Cardiac History: High Cholesterol Respiratory History: COPD Endocrine Medical History: Other Musculoskeletal History: Degenerative Disk Disease, Fibromyalgia GI Medical History: Esophageal Disorder, GERD History: No Pertinent History Psycho-Social History: Anxiety, Depression, Panic Disorder Female Reproductive Disorders: Abnormal Uterine Bleeding Other Medical History: lupus, neuropathy,ddd - Past Surgical History Past Surgical History: Yes Neuro Surgical History: No Pertinent History Cardiac: No Pertinent History Respiratory: No Pertinent History Gastrointestinal: No Pertinent History Genitourinary: No Pertinent History Musculoskeletal: Other Female Surgical History: Section, Tubal Ligation, Other Other Surgical History: ABLATION - TUBAL LIGATION. BILATERAL WRIST SURGERY. PLATE AND TWO SCREWS IN THE BACK OF NECK - Social History Smoking Status: Current every day smoker How long have you smoked: 18 years Exposure to second hand smoke: Yes Drug Use: none Patient Lives Alone: No - Nursing Vital Signs Nursing Vital Signs: Initial Vital Signs Temperature 99.0 F 04/09/20 11:47 Pulse Rate 86 04/09/20 11:47 Respiratory Rate 18 04/09/20 11:47 Blood Pressure 149/81 04/09/20 11:47 O2 Sat by Pulse Oximetry 99 04/09/20 11:47 Pain Scale Pain Intensity 10 - Physical Exam General Appearance: no apparent distress, mild distress, alert, anxiety Eyes, Ears, Nose, Throat Exam: normal ENT inspection, moist mucous membranes Neck Exam: normal inspection, non-tender, supple, full range of motion Cardiovascular/Respiratory Exam: chest non-tender Gastrointestinal/Abdominal Exam: non-tender Back Exam: normal inspection, normal range of motion, No CVA tenderness, No vertebral tenderness Hips Exam: bilateral: non-tender, normal inspection, normal range of motion, no evidence of injury Legs Exam: bilateral leg: non-tender, normal inspection, normal range of motion, no evidence of injury Knees Exam: bilateral knee: non-tender, normal inspection, normal range of motion, no evidence of injury Ankle Exam: bilateral ankle: non-tender, normal inspection, normal range of motion, no evidence of injury Foot Exam: right foot: non-tender, left foot: normal inspection, normal range of motion, no evidence of injury, bone tenderness, soft tissue tenderness Neuro/Tendon Exam: normal sensation, normal motor functions, normal tendon functions Mental Status Exam: alert, 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, cooperative Skin Exam: normal color, warm, dry SpO2 Interpretation: normal O2 Delivery: Room Air - Course Nursing assessment & vital signs reviewed: Yes Ordered Tests: Active Orders 24 hr Category Date Time Status FOOT (MINIMUM 3 VIEWS) Stat Exams 04/09/20 11:45 Completed - Progress Progress: unchanged, pain not gone completely Progress Note: 04/09/20 12:31 X-ray of left foot reveals no evidence of any acute fracture or dislocation. Counseled pt/family regarding: diagnosis, need for follow-up, rad results - Departure Departure Disposition: Home Clinical Impression: Contusion of left foot Condition: Stable Critical Care Time: No Referrals: MOHIT SCHROEDER MD [Primary Care Provider] - Additional Instructions: Ice pack to left foot 3 times a day for 10 minutes for the next 48 hours. May use Tylenol and ibuprofen for pain. Follow-up with your primary care physician for persistent symptoms.
--- NOTE | 2020-04-09 12:21 | XRAY ---
Indication: Lateral pain following injury. Comparison: August 25, 2014. 3 nonweightbearing views left foot demonstrates stable tiny heel spurs. No new/acute bony, articular, or soft tissue abnormalities.
[2020-04-09] MEDS ORDERED: PERCOCET TABLET 5/325MG PO STA (12:41)
[2020-04-09] MEDS ORDERED: PERCOCET TABLET 5/325MG ONE (12:43)
[2020-04-09 12:51] VITALS: BP 158/90; PULSE 73; O2SAT 97
== END 2020-04-09 13:05 | disposition home or self-care (01) ==
LOC: ED 11:37
DX: S90.32XA Contusion of left foot, initial encounter (principal); W22.09XA Striking against other stationary object, initial encounter; Y93.89 Activity, other specified; Y92.828 Other wilderness area as the place of occurrence of the external cause; M79.672 Pain in left foot
CPT/HCPCS: 73630; 99283; A9270-GY

== ENCOUNTER 2020-07-09 17:27 | Emergency (ER) | payer OTHER ==
--- NOTE | 2020-07-09 17:43 | ERPHSYRPT ---
- History of Present Illness Time Seen by Provider: 07/09/20 17:43 Source: patient Exam Limitations: no limitations Physician History: 44yo female with hx of Sz presents with a sz event. Witnessed by her daughter. Started with ALVARENGA, she does have hx of migraines. She sts she never has ALVARENGA before SZ. Pt has felt unwell last few days. Now she feels tenderness on right side of face and head. She feels achy all over. No tongue biting or incontinence although she usually does in previous SZs Last Sz was 2 years ago when she was switched to Keppra. Timing/Duration: today Severity: severe Baseline/Normal Cognition: alert 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 Current Cognition: alert 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 Baseline Gait: walks w/o assistance Associated Symptoms: fatigue, weakness, numbness/tingling in legs/feet, seizures, headache, other (Bilat arms feel heavy, "feels everything is moving in slow motion") Allergies/Adverse Reactions: Penicillins Allergy (Verified 07/09/20 17:40) Rash propoxyphene HCl [From Darvon] Allergy (Verified 07/09/20 17:40) PASS OUT hydromorphone [From Dilaudid] Adverse Reaction (Verified 07/09/20 17:40) Patient states pill form caused her to become mean and start having blisters in her mouth and nose. Home Medications: Erenumab-Aooe [Aimovig Autoinjector] 170 mg IJ UD 02/20/19 [History] Levetiracetam 500 mg PO BID 02/20/19 [History] Propranolol HCl 20 mg [Inderal 20 MG] 20 mg PO BID 02/20/19 [History] Gabapentin 0 mg PO UD 07/09/20 [History] Hydrocodone/Acetaminophen [Hydrocodone-Acetamin 7.5-325] 1 each PO BID 07/09/20 [History] Sertraline HCl 50 mg [Zoloft 50 mg Tablet] 50 mg PO DAILY 07/09/20 [History] Ubrogepant [Ubrelvy] 50 mg PO DAILY 07/09/20 [History] Hx Tetanus, Diphtheria Vaccination/Date Given: Yes Hx Influenza Vaccination/Date Given: Yes Hx Pneumococcal Vaccination/Date Given: No - Review of Systems Constitutional: Fatigue, Malaise, No Fever, No Chills Eyes: No Symptoms Ears, Nose, & Throat: No Symptoms Respiratory: No Cough, No Dyspnea Cardiac: No Chest Pain, No Edema, No Syncope Abdominal/Gastrointestinal: No Abdominal Pain, No Nausea, No Vomiting, No Diarrhea Genitourinary Symptoms: No Dysuria Musculoskeletal: Arthralgias, Myalgias, No Back Pain, No Neck Pain Skin: No Rash Neurological: Headache, Seizure, No Dizziness, No Focal Weakness, No Sensory Changes Psychological: No Symptoms Endocrine: No Symptoms All Other Systems: Reviewed and Negative - Past Medical History Pertinent Past Medical History: Yes Neurological History: Seizures ENT History: No Pertinent History Cardiac History: High Cholesterol Respiratory History: COPD Endocrine Medical History: Other Musculoskeletal History: Degenerative Disk Disease, Fibromyalgia GI Medical History: Esophageal Disorder, GERD History: No Pertinent History Psycho-Social History: Anxiety, Depression, Panic Disorder Female Reproductive Disorders: Abnormal Uterine Bleeding Other Medical History: lupus, neuropathy,ddd - Past Surgical History Past Surgical History: Yes Neuro Surgical History: No Pertinent History Cardiac: No Pertinent History Respiratory: No Pertinent History Gastrointestinal: No Pertinent History Genitourinary: No Pertinent History Musculoskeletal: Other Female Surgical History: Section, Tubal Ligation, Other Other Surgical History: ABLATION - TUBAL LIGATION. BILATERAL WRIST SURGERY. PLATE AND TWO SCREWS IN THE BACK OF NECK - Social History Smoking Status: Current every day smoker How long have you smoked: 18 years Exposure to second hand smoke: Yes Drug Use: none Patient Lives Alone: No - Nursing Vital Signs Nursing Vital Signs: Initial Vital Signs Temperature 98.3 F 07/09/20 17:34 Pulse Rate 85 07/09/20 17:34 Blood Pressure 139/84 07/09/20 17:34 O2 Sat by Pulse Oximetry 99 07/09/20 17:34 Pain Scale Pain Intensity 8 - Taylor Coma Scale Best Eye Response ([place]): (4) open spontaneously Best Verbal Response ([place]): (5) oriented Best Motor Response ([place]): (6) obeys commands Taylor Total: 15 - Physical Exam General Appearance: mild distress, alert Eye Exam: bilateral eye: PERRL, EOMI Ears, Nose, Throat Exam: normal ENT inspection, moist mucous membranes Neck Exam: normal inspection, non-tender, supple Respiratory: normal breath sounds, lungs clear, airway intact, No respiratory distress Cardiovascular: regular rate/rhythm, No edema Gastrointestinal: soft, No tenderness, No distention Back Exam: normal inspection Extremity Exam: normal inspection, tenderness (diffusely), No pedal edema 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, 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 Exam: normal hearing, normal speech, PERRL, tongue midline Coordination/Gait: normal finger to nose, normal gait Motor/Sensory: no motor deficit, no sensory deficit Skin Exam: normal color, warm, dry, No rash - Course EKG Interpreted by Me: RATE (78), Left [place] Deviation - Radiology Exams Chest X-ray Interpretation: Reviewed by me, Infiltrates (possible LLL) - CT Exams Head CT Interpretation: Negative, Discussed w/radiologist Ordered Tests: Active Orders 24 hr Category Date Time Status Clean Catch Urine Specimen STAT Care 07/09/20 18:39 Completed EKG-ER Only STAT Care 07/09/20 17:50 Completed IV Insertion STAT Care 07/09/20 17:52 Completed Oxygen-ED Only Nasal Cannula 2 lpm Care 07/09/20 18:35 Completed Seizure Precautions -SCCHED STAT Care 07/09/20 17:52 Completed CHEST 1 VIEW (PORTABLE) Stat Exams 07/09/20 18:14 Taken HEAD WITHOUT CONTRAST [CT] Stat Exams 07/09/20 18:41 Taken Alcohol [ETHYL ALCOHOL] Stat Lab 07/09/20 17:30 Completed CBC W DIFF Stat Lab 07/09/20 17:57 Completed CMP Stat Lab 07/09/20 17:57 Completed UA W/RFX UR CULTURE Stat Lab 07/09/20 19:55 Completed Urine Triage Profile Stat Lab 07/09/20 19:55 Completed Medication Summary Discontinued Medications Generic Name Dose Route Start Last Admin Trade Name Manish PRN Reason Stop Dose Admin Sodium Chloride 1,000 mls @ 999 mls/hr 07/09/20 18:34 07/09/20 19:27 Sodium Chloride 0.9% 1000 Ml IV 07/09/20 19:34 Infused .Q1H1M STA Infusion Sodium Chloride Confirm 07/09/20 18:37 Sodium Chloride 0.9% 1000 Ml Administered 07/09/20 18:38 Dose 1,000 mls @ ud .ROUTE .STK-MED ONE Levetiracetam 1,000 mg/ 110 mls @ 220 mls/hr 07/09/20 20:12 07/09/20 20:15 Dextrose IV 07/09/20 20:41 220 mls/hr STAT ONE Administration Sodium Chloride Confirm 07/09/20 20:14 Sodium Chloride 0.9% 100 Ml Ivpb Administered 07/09/20 20:15 Dose 100 mls @ ud IV .STK-MED ONE Dextrose Confirm 07/09/20 20:16 D5w 100ml Mini Bag 100 Ml Administered 07/09/20 20:17 Dose 100 mls @ ud IV .STK-MED ONE Levetiracetam Confirm 07/09/20 20:14 Keppra 500 Mg/5 Ml Administered 07/09/20 20:15 Dose 500 mg .ROUTE .STK-MED ONE Lorazepam 1 mg 07/09/20 18:33 07/09/20 18:37 Ativan 2 Mg/1 Ml Vial IV 07/09/20 18:34 Not Given STAT ONE Lorazepam Confirm 07/09/20 18:34 Ativan 2 Mg/1 Ml Vial Administered 07/09/20 18:35 Dose 2 mg .ROUTE .STK-MED ONE Lorazepam 2 mg 07/09/20 18:37 07/09/20 18:36 Ativan 2 Mg/1 Ml Vial IV 07/09/20 18:38 2 mg STAT ONE Administration Lab/Rad Data: Laboratory Result Diagrams 07/09/20 17:57 07/09/20 17:57 Laboratory Results 07/09/20 07/09/20 07/09/20 Range/Units 19:55 19:55 17:57 WBC (4.0-10.5) K/mm3 RBC (4.1-5.4) M/mm3 Hgb (12.0-16.0) gm/dl Hct (35-47) % MCV (78-100) fl MCH (26-32) pg MCHC (32-36) g/dl RDW (11.5-14.0) % Plt Count (150-450) K/mm3 MPV (7.5-11.0) fl Gran % (36.0-66.0) % Eos # (Auto) (0-0.5) Absolute Lymphs (auto) (1.0-4.6) Absolute Monos (auto) (0.0-1.3) Lymphocytes % (24.0-44.0) % Monocytes % (0.0-12.0) % Eosinophils % (0.00-5.0) % Basophils % (0.0-0.4) % Absolute Granulocytes (1.4-6.9) Basophils # (0-0.4) Sodium 139 (137-145) mmol/L Potassium 3.9 (3.5-5.1) mmol/L Chloride 105 (98-107) mmol/L Carbon Dioxide 25 (22-30) mmol/L Anion Gap 12.0 (5-15) MEQ/L BUN 18 H (7-17) mg/dL Creatinine 0.73 (0.52-1.04) mg/dL Estimated GFR > 60.0 ML/MIN Glucose 110 H (74-106) mg/dL Calcium 9.5 (8.4-10.2) mg/dL Total Bilirubin 0.30 (0.2-1.3) mg/dL AST 19 (14-36) U/L ALT 10 (0-35) U/L Alkaline Phosphatase 54 (38-126) U/L Serum Total Protein 7.8 (6.3-8.2) g/dL Albumin 4.6 (3.5-5.0) g/dL Urine Color YELLOW (YELLOW) Urine Appearance SLIGHTLY CLOUDY (CLEAR) Urine pH 7.0 (5-6) Ur Specific [place] 1.021 (1.005-1.025) Urine Protein NEGATIVE (Negative) Urine Ketones NEGATIVE (NEGATIVE) Urine Blood NEGATIVE (0-5) Ross/ul Urine Nitrite NEGATIVE (NEGATIVE) Urine Bilirubin NEGATIVE (NEGATIVE) Urine Urobilinogen NEGATIVE (0-1) mg/dL Ur Leukocyte Esterase NEGATIVE (NEGATIVE) Urine WBC (Auto) 0-2 (0-5) /HPF Urine RBC (Auto) 3-5 (0-2) /HPF U Epithel Cells (Auto) RARE (FEW) /HPF Urine Bacteria (Auto) NONE (NEGATIVE) /HPF Urine Mucus (Auto) SLIGHT (NEGATIVE) /HPF Urine Culture Reflexed NO (NO) Urine Glucose NEGATIVE (NEGATIVE) mg/dL Urine Opiates Level NEGATIVE (NEGATIVE) Ur Methadone NEGATIVE (NEGATIVE) Urine Barbiturates NEGATIVE (NEGATIVE) Ur Phencyclidine (PCP) NEGATIVE (NEGATIVE) Urine Amphetamine NEGATIVE (NEGATIVE) U Benzodiazepine Level NEGATIVE (NEGATIVE) Urine Cocaine NEGATIVE (NEGATIVE) Urine Marijuana (THC) NEGATIVE (NEGATIVE) Ethyl Alcohol (0-10) mg/dL 09/21/20 09/21/20 Range/Units 17:57 17:30 WBC 10.0 (4.0-10.5) K/mm3 RBC 4.06 L (4.1-5.4) M/mm3 Hgb 13.3 (12.0-16.0) gm/dl Hct 40.1 (35-47) % MCV 98.8 (78-100) fl MCH 32.8 H (26-32) pg MCHC 33.2 (32-36) g/dl RDW 12.8 (11.5-14.0) % Plt Count 372 (150-450) K/mm3 MPV 9.9 (7.5-11.0) fl Gran % 56.6 (36.0-66.0) % Eos # (Auto) 0.47 (0-0.5) Absolute Lymphs (auto) 3.07 (1.0-4.6) Absolute Monos (auto) 0.73 (0.0-1.3) Lymphocytes % 30.7 (24.0-44.0) % Monocytes % 7.3 (0.0-12.0) % Eosinophils % 4.7 (0.00-5.0) % Basophils % 0.7 (0.0-0.4) % Absolute Granulocytes 5.67 (1.4-6.9) Basophils # 0.07 (0-0.4) Sodium (137-145) mmol/L Potassium (3.5-5.1) mmol/L Chloride (98-107) mmol/L Carbon Dioxide (22-30) mmol/L Anion Gap (5-15) MEQ/L BUN (7-17) mg/dL Creatinine (0.52-1.04) mg/dL Estimated GFR ML/MIN Glucose (74-106) mg/dL Calcium (8.4-10.2) mg/dL Total Bilirubin (0.2-1.3) mg/dL AST (14-36) U/L ALT (0-35) U/L Alkaline Phosphatase (38-126) U/L Serum Total Protein (6.3-8.2) g/dL Albumin (3.5-5.0) g/dL Urine Color (YELLOW) Urine Appearance (CLEAR) Urine pH (5-6) Ur Specific [place] (1.005-1.025) Urine Protein (Negative) Urine Ketones (NEGATIVE) Urine Blood (0-5) Ross/ul Urine Nitrite (NEGATIVE) Urine Bilirubin (NEGATIVE) Urine Urobilinogen (0-1) mg/dL Ur Leukocyte Esterase (NEGATIVE) Urine WBC (Auto) (0-5) /HPF Urine RBC (Auto) (0-2) /HPF U Epithel Cells (Auto) (FEW) /HPF Urine Bacteria (Auto) (NEGATIVE) /HPF Urine Mucus (Auto) (NEGATIVE) /HPF Urine Culture Reflexed (NO) Urine Glucose (NEGATIVE) mg/dL Urine Opiates Level (NEGATIVE) Ur Methadone (NEGATIVE) Urine Barbiturates (NEGATIVE) Ur Phencyclidine (PCP) (NEGATIVE) Urine Amphetamine (NEGATIVE) U Benzodiazepine Level (NEGATIVE) Urine Cocaine (NEGATIVE) Urine Marijuana (THC) (NEGATIVE) Ethyl Alcohol < 10 (0-10) mg/dL - Progress Progress: improved Progress Note: 07/09/20 19:26 PT may have had 2 brief 1 min sz episode while at CT scan. Ativan 2mg IV given. Unsure if pt had true sz, RN sts possible post ictal state. NO tongue biting or incontinence. PT better. Pt sts she is compliant on her meds but also sts her Lupus flare up is bad and has been cause of szs in the past. She has also gained significant weight over last year. Her dosage has not changed since beginning med. Will load pt with Keppra 1gm IV and ask to see neurologist in a few days when her keppra level will be available. Will DC home. pt in agreement. 07/09/20 20:12 07/09/20 20:18 Discussed breast issues. Hx of fibrocystic breast dz. Right breast having some drainage with lumps. Pt will seek PCP and get mammogram as in past. Counseled pt/family regarding: lab results, diagnosis, need for follow-up, rad results - Departure Departure Disposition: Home Clinical Impression: Seizure, Migraine headache without aura Condition: Stable Critical Care Time: Yes Critical Care Time(excluding separately billable procedures): Critical 30-74 mins Referrals: MOHIT SCHROEDER MD [Primary Care Provider] - Instructions: Seizures, Adult (DC) Additional Instructions: Monitor symptoms closely. Drink plenty of water. Consider follow up in a few days with your neurologist. Keppra level is pending. Continue with home meds. May take extra Keppra as instructed by your neurologist should you feel a seizure coming on. Return to ER if worse. Obtain primary care provider to workup breast issues as soon as possible.
[2020-07-09 18:00] LABS: Absolute Neutrophil Ct (ANC) 5.67 (1.4-6.9); BASOPHIL % 0.7 % (0.0-0.4); Basophil (Absolute #) 0.07 (0-0.4); Eosinophil % 4.7 % (0.00-5.0); Eosinophil (Absolute #) 0.47 (0-0.5); Hematocrit 40.1 % (35-47); Hemoglobin 13.3 gm/dl (12.0-16.0); Lymphocyte (Absolute #) 3.07 (1.0-4.6); Lymphocytes % 30.7 % (24.0-44.0); Mean Cell Volume 98.8 fl (78-100); Mean Corpuscular Hemoglobin 32.8 pg (26-32); Mean Corpuscular Hgb Concent. 33.2 g/dl (32-36); Mean Platelet Volume 9.9 fl (7.5-11.0); Monocyte (Absolute #) 0.73 (0.0-1.3); Monocytes % 7.3 % (0.0-12.0); Neutrophil % 56.6 % (36.0-66.0); Platelet Count 372 K/mm3 (150-450); Red Blood Count 4.06 M/mm3 (4.1-5.4); Red Cell Distribution Width 12.8 % (11.5-14.0)
[2020-07-09 18:10] LABS: ALBUMIN 4.6 g/dL (3.5-5.0); ALKALINE PHOSPHATASE 54 U/L (38-126); BLOOD UREA NITROGEN 18 mg/dL (7-17); CHLORIDE 105 mmol/L (98-107); Calcium 9.5 mg/dL (8.4-10.2); Carbon Dioxide 25 mmol/L (22-30); Creatinine 1 0.73 mg/dL (0.52-1.04); EST GLOMERULAR FILTRATION RATE > 60.0 ML/MIN; Glucose 110 mg/dL (74-106); Potassium 3.9 mmol/L (3.5-5.1); SGOT/AST 19 U/L (14-36); SGPT/ALT 10 U/L (0-35); SODIUM 139 mmol/L (137-145); Total Protein 7.8 g/dL (6.3-8.2)
[2020-07-09] MEDS ORDERED: Ativan 2 MG/1 ML VIAL IV ONE ×2 (18:33→18:37)
[2020-07-09] MEDS ORDERED: Ativan 2 MG/1 ML VIAL ONE (18:34)
[2020-07-09] MEDS ORDERED: Sodium Chloride 0.9% 1000 ML 1,000 ML IV STA (18:34)
[2020-07-09] MEDS ORDERED: Sodium Chloride 0.9% 1000 ML 1,000 ML ONE (18:37)
[2020-07-09 20:03] LABS: Appearance SLIGHTLY CLOUDY (CLEAR); Bilirubin NEGATIVE (NEGATIVE); Blood NEGATIVE Ery/ul (0-5); Epithelial Cells RARE /HPF (FEW); Glucose NEGATIVE (NEGATIVE); Ketones NEGATIVE (NEGATIVE); Leukocyte Esterase NEGATIVE (NEGATIVE); Mucus SLIGHT /HPF (NEGATIVE); Nitrite NEGATIVE (NEGATIVE); Protein,Urine Dip NEGATIVE (Negative); Specific Gravity 1.021 (1.005-1.025); Urobilinogen NEGATIVE mg/dL (0-1); WBC 0-2 /HPF (0-5)
[2020-07-09 20:06] VITALS: PULSE 76; O2SAT 99
[2020-07-09] MEDS ORDERED: Keppra 500 MG/5 ML*** 1,000 MG in D5w 100ML Mini Bag 100 ML 100 ML IV ONE (20:12)
[2020-07-09] MEDS ORDERED: Sodium Chloride 0.9% 100 ML IVPB 0 ML IV ONE (20:14)
[2020-07-09] MEDS ORDERED: Keppra 500 MG/5 ML ONE (20:14)
[2020-07-09] MEDS ORDERED: D5w 100ML Mini Bag 100 ML 100 ML IV ONE (20:16)
[2020-07-09 20:24] LABS: Amphetamine,Urine NEGATIVE (NEGATIVE); Barbiturate,Urine NEGATIVE (NEGATIVE); Benzodiazepine,Urine NEGATIVE (NEGATIVE); Cocaine,Urine NEGATIVE (NEGATIVE); Methadone,Urine NEGATIVE (NEGATIVE); Opiate,Urine NEGATIVE (NEGATIVE); PCP,Urine NEGATIVE (NEGATIVE); THC,Urine NEGATIVE (NEGATIVE)
[2020-07-09 20:53] VITALS: BP 119/73
--- NOTE | 2020-07-10 08:39 | XRAY ---
Indication: Seizure. Comparison: December 19, 2019. Portable apical lordotic chest again demonstrates normal heart and lungs. Bony thorax intact again with lower cervical fusion hardware. No new/acute findings.
--- NOTE | 2020-07-10 08:42 | XRAY ---
Indication: Seizure. Facial numbness. Multiple contiguous axial images obtained through the head without contrast. Comparison: October 27, 2012. Normal appearing brain parenchyma, ventricles, and bony calvarium. Visualized paranasal sinuses and mastoid air cells are clear. Impression: Continued normal CT head without contrast exam.
== END 2020-07-09 20:53 | disposition home or self-care (01) ==
LOC: ED 17:27
DX: G40.909 Epilepsy, unspecified, not intractable, without status epilepticus (principal); G43.009 Migraine without aura, not intractable, without status migrainosus; Z79.899 Other long term (current) drug therapy; J44.9 Chronic obstructive pulmonary disease, unspecified; F41.9 Anxiety disorder, unspecified
CPT/HCPCS: 36000; 36415; 70450; 71045; 80053; 80177; 80307; 81001; 85025; 93005; 96360; 96365; 96374; 99284; 99291; G0480; J1953; J2060

== ENCOUNTER 2020-09-12 09:05 | Emergency (ER) | payer OTHER ==
--- NOTE | 2020-09-12 09:15 | ERPHSYRPT ---
- History of Present Illness Time Seen by Provider: 09/12/20 09:15 Source: patient Exam Limitations: no limitations Physician History: This is a 44-year-old white female who smokes cigarettes and presents with 2-day history of worsening right rib pain. The pain is described as sharp and worse with deep inspiration. The pain improves when she lies back. She does have coughing on occasion chronically. Also, her coughing is worse when she breathes cold air. Patient denies fever. She has no myalgias or arthralgias. She has no nausea vomiting or diarrhea. She has no anterior chest pain. Patient denies fall or injury. Timing/Duration: day(s) (2) Method of Injury: other (No injury) Quality: sharp, stabbing Severity of Pain-Max: moderate Severity of Pain-Current: moderate Modifying Factors: Improves With: movement, other (Deep breath worsens) Associated Symptoms: denies symptoms Previous symptoms: same symptoms as today Allergies/Adverse Reactions: Penicillins Allergy (Verified 09/12/20 09:22) Rash propoxyphene HCl [From Darvon] Allergy (Verified 09/12/20 09:22) PASS OUT hydromorphone [From Dilaudid] Adverse Reaction (Verified 09/12/20 09:22) Patient states pill form caused her to become mean and start having blisters in her mouth and nose. Home Medications: Erenumab-Aooe [Aimovig Autoinjector] 170 mg IJ UD 02/20/19 [History] Levetiracetam 750 mg PO BID 02/20/19 [History] Propranolol HCl 20 mg [Inderal 20 MG] 20 mg PO BID 02/20/19 [History] Gabapentin 100 mg PO BID 07/09/20 [History] Hydrocodone/Acetaminophen [Hydrocodone-Acetamin 7.5-325] 1 each PO BID 07/09/20 [History] Ubrogepant [Ubrelvy] 50 mg PO DAILY 07/09/20 [History] Hx Tetanus, Diphtheria Vaccination/Date Given: Yes Hx Influenza Vaccination/Date Given: Yes Hx Pneumococcal Vaccination/Date Given: No Travel Risk - International Travel Have you traveled outside of the country in past 3 weeks: No - Coronavirus Screening Are you exhibiting any of the following symptoms?: No Close contact with a COVID-19 positive Pt in past 14-21 Days: No - Review of Systems Constitutional: No Symptoms Eyes: No Symptoms Ears, Nose, & Throat: No Symptoms Respiratory: No Symptoms, Other (Right rib pain. Worse with deep inspiration) Cardiac: No Symptoms Abdominal/Gastrointestinal: No Symptoms Genitourinary Symptoms: No Symptoms Musculoskeletal: No Symptoms Skin: No Symptoms Neurological: No Symptoms Psychological: No Symptoms Endocrine: No Symptoms Hematologic/Lymphatic: No Symptoms Immunological/Allergic: No Symptoms All Other Systems: Reviewed and Negative - Past Medical History Pertinent Past Medical History: Yes Neurological History: Seizures ENT History: No Pertinent History Cardiac History: High Cholesterol Respiratory History: COPD Endocrine Medical History: Other Musculoskeletal History: Degenerative Disk Disease, Fibromyalgia GI Medical History: Esophageal Disorder, GERD History: No Pertinent History Psycho-Social History: Anxiety, Depression, Panic Disorder Female Reproductive Disorders: Abnormal Uterine Bleeding Other Medical History: lupus, neuropathy,ddd - Past Surgical History Past Surgical History: Yes Neuro Surgical History: No Pertinent History Cardiac: No Pertinent History Respiratory: No Pertinent History Gastrointestinal: No Pertinent History Genitourinary: No Pertinent History Musculoskeletal: Other Female Surgical History: Section, Tubal Ligation, Other Other Surgical History: ABLATION - TUBAL LIGATION. BILATERAL WRIST SURGERY. PLATE AND TWO SCREWS IN THE BACK OF NECK - Social History Smoking Status: Current every day smoker How long have you smoked: 18 years Exposure to second hand smoke: Yes Drug Use: none Patient Lives Alone: No - Nursing Vital Signs Nursing Vital Signs: Initial Vital Signs Temperature 98.4 F 09/12/20 09:12 Pulse Rate 95 H 09/12/20 09:12 Blood Pressure 124/78 09/12/20 09:12 O2 Sat by Pulse Oximetry 98 09/12/20 09:12 Pain Scale Pain Intensity [Right 5 Posterior Lateral Back] Pain Intensity 6 - Physical Exam General Appearance: mild distress, alert, anxiety Eye Exam: PERRL/EOMI, eyes nml inspection Ears, Nose, Throat Exam: normal ENT inspection, moist mucous membranes Neck Exam: normal inspection, non-tender, supple, full range of motion Respiratory Exam: normal breath sounds, lungs clear, airway intact, No chest tenderness, No respiratory distress Cardiovascular Exam: regular rate/rhythm, normal heart sounds, normal peripheral pulses Gastrointestinal Exam: soft, normal bowel sounds, No tenderness Pelvic Exam: not done Rectal Exam: not done Back Exam: normal inspection, normal range of motion, muscle spasm (Right paraspinous muscle region), No CVA tenderness, No vertebral tenderness Extremity Exam: normal inspection, normal range of motion, pelvis stable Neurologic Exam: alert, 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, cooperative, 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 Counseled pt/family regarding: diagnosis, need for follow-up, rad results - Departure Departure Disposition: Home Clinical Impression: Pleurisy, Bronchitis Condition: Stable Critical Care Time: No Referrals: MOHIT SCHROEDER MD [Primary Care Provider] - Additional Instructions: Stop smoking. Drink plenty of fluids. Take medication as prescribed. Follow- up with your primary care doctor for further management. Prescriptions: Hydrocodone/Acetaminophen [Hydrocodone-Acetamn 7.5-325/15] 10 ml PO Q8H PRN PRN #120 solution MDD 30 ml PRN Reason: Cough Prednisone 10 mg [Deltasone 10 mg] 10 mg PO TID #12 tablet Albuterol 8 gm Mdi Hfa [Ventolin Hfa MDI] 8 gm IH Q4H #1 hfa.[email or web address] Azithromycin 250 mg [Zithromax 250 MG TABLET] 250 mg PO ZPACK #6 tablet
[2020-09-12 09:22] VITALS: O2SAT 98
--- NOTE | 2020-09-12 10:02 | XRAY ---
Indication: Right rib pain with inspiration. Comparison: July 09, 2020. PA/lateral chest demonstrates new minimal left base subsegmental atelectasis/scarring. Remaining heart and lungs normal. Bony thorax intact again with lower cervical fusion hardware.
[2020-09-12 10:34] VITALS: BP 114/68; PULSE 76
== END 2020-09-12 10:55 | disposition home or self-care (01) ==
LOC: ED 09:05
DX: R09.1 Pleurisy (principal); J40 Bronchitis, not specified as acute or chronic; Z72.0 Tobacco use
CPT/HCPCS: 71046; 99283

== ENCOUNTER 2020-12-31 21:09 | Emergency (ER) | payer OTHER ==
[2020-12-31] MEDS ORDERED: Sodium Chloride 0.9% 1000 ML 1,000 ML IV STA (21:25)
[2020-12-31] MEDS ORDERED: Dulcolax 10 MG SUPP PR ONE (21:27)
[2020-12-31] MEDS ORDERED: Sodium Chloride 0.9% 1000 ML 1,000 ML ONE (21:32)
[2020-12-31 21:56] LABS: Absolute Neutrophil Ct (ANC) 8.43 (1.4-6.9); BASOPHIL % 0.2 % (0.0-0.4); Basophil (Absolute #) 0.03 (0-0.4); Eosinophil % 5.4 % (0.00-5.0); Eosinophil (Absolute #) 0.69 (0-0.5); Hematocrit 42.1 % (35-47); Hemoglobin 14.3 gm/dl (12.0-16.0); Lymphocyte (Absolute #) 2.66 (1.0-4.6); Lymphocytes % 20.8 % (24.0-44.0); Mean Cell Volume 96.6 fl (78-100); Mean Corpuscular Hemoglobin 32.8 pg (26-32); Mean Platelet Volume 9.2 fl (7.5-11.0); Monocyte (Absolute #) 0.99 (0.0-1.3); Monocytes % 7.7 % (0.0-12.0); Neutrophil % 65.9 % (36.0-66.0); Platelet Count 430 K/mm3 (150-450); Red Blood Count 4.36 M/mm3 (4.1-5.4); Red Cell Distribution Width 12.8 % (11.5-14.0); White Blood Count 12.8 K/mm3 (4.0-10.5)
[2020-12-31 22:01] LABS: Appearance SLIGHTLY CLOUDY (CLEAR); Bilirubin NEGATIVE (NEGATIVE); Blood NEGATIVE Ery/ul (0-5); Epithelial Cells FEW /HPF (FEW); Glucose NEGATIVE (NEGATIVE); Ketones NEGATIVE (NEGATIVE); Leukocyte Esterase NEGATIVE (NEGATIVE); Mucus SLIGHT /HPF (NEGATIVE); Nitrite NEGATIVE (NEGATIVE); Protein,Urine Dip 30 (Negative); Specific Gravity 1.019 (1.005-1.025); Urobilinogen 2 mg/dL (0-1)
[2020-12-31 22:08] LABS: ALBUMIN 4.5 g/dL (3.5-5.0); ALKALINE PHOSPHATASE 61 U/L (38-126); ANION GAP 14.5 MEQ/L (5-15); BLOOD UREA NITROGEN 13 mg/dL (7-17); CHLORIDE 98 mmol/L (98-107); Calcium 9.7 mg/dL (8.4-10.2); Carbon Dioxide 29 mmol/L (22-30); Creatinine 1 0.88 mg/dL (0.52-1.04); EST GLOMERULAR FILTRATION RATE > 60.0 ML/MIN; Glucose 107 mg/dL (74-106); LIPASE 51 U/L (23-300); Potassium 3.9 mmol/L (3.5-5.1); SGOT/AST 35 U/L (14-36); SGPT/ALT 30 U/L (0-35); SODIUM 138 mmol/L (137-145)
[2020-12-31 22:20] VITALS: O2SAT 99
--- NOTE | 2020-12-31 22:32 | ERPHSYRPT ---
- History of Present Illness Time Seen by Provider: 12/31/20 21:30 Historian: patient Exam Limitations: no limitations Patient Subjective Stated Complaint: Patient states " I had back surgery on 12/26/20 and I haven't been to bathroom to have a BM in 2 weeks and I woke up t his morning with hot flashes and I started having sharp pains throughout my ABD and started with nausea". Triage Nursing Assessment: Patient arrived to ED per self. Patient A/O times 4. Patient able to follow instructions without difficulty. Patient states she had surgery on the of this month for her back. Patient with long medical HX. Lungs clear bilateral A/P throughout. Patient denies chest pain or SOB. Cap refill < 3 seconds. No S/S of acute respiratory distress noted. Patient noted with hypoactive BS in all 4 quads. ABD soft, round, obese, non-distended. Patricia ent denies pain or discomfort upon palpitation. Patient noted with non-pitting edema to bilateral lower extremities. + Radial and pedal pulses noted. Patient denies dizziness. Patient does have nausea but states she has had no vomiting. Patient states she has had some hot flashes and sharp pains in her ABD and the pain is becoming intolerable. Oral mucosa moist. Skin turgor < 3 seconds. No S/S of dehydration. Patient states her appetite and fluid intake has been her normal. Patient is taking opoids for pain since having surgery. Physician History: Patient is a 45-year-old female presents to our ED with complaints of constipation. Patient advises she had neck surgery approximately 2 weeks ago. Since then patient has been taking [place] 7.5's. Patient has not had a bowel movement in 2 weeks according to patient. Patient took a stool softener this morning but did not have a bowel movement. Prior to arrival patient had been developing intermittent abdominal cramping. No trauma. No fever. No nausea or vomiting. No diaphoresis. No chest pain or shortness of breath. Symptoms are mild to moderate in intensity. No specific worsening or improving factors. Patient voices no other complaints or concerns at this time. Timing/Duration: today Activities at Onset: none Quality: cramping Abdominal Pain Onset Location: generalized abdomen Pain Radiation: no radiation Severity of Pain-Max: moderate Severity of Pain-Current: mild Modifying Factors: Improves With: nothing Associated Symptoms: denies symptoms, No chest pain, No diarrhea, No fever/chills, No headache, No loss of appetite, No shortness of breath, No vomiting, No weakness Previous symptoms: no prior history Allergies/Adverse Reactions: Penicillins Allergy (Verified 12/31/20 21:34) Rash propoxyphene HCl [From Darvon] Allergy (Verified 12/31/20 21:34) PASS OUT hydromorphone [From Dilaudid] Adverse Reaction (Verified 12/31/20 21:34) Patient states pill form caused her to become mean and start having blisters in her mouth and nose. Home Medications: Erenumab-Aooe [Aimovig Autoinjector] 170 mg IJ UD 02/20/19 [History] Levetiracetam 750 mg PO BID 02/20/19 [History] Propranolol HCl 20 mg [Inderal 20 MG] 40 mg PO DAILY 02/20/19 [History] Gabapentin 300 mg PO BID 07/09/20 [History] Hydrocodone/Acetaminophen [Hydrocodone-Acetamin 7.5-325] 1 each PO BID 07/09/20 [History] Ubrogepant [Ubrelvy] 50 mg PO DAILY PRN 07/09/20 [History] Hx Tetanus, Diphtheria Vaccination/Date Given: Yes Hx Influenza Vaccination/Date Given: Yes Hx Pneumococcal Vaccination/Date Given: No Immunizations Up to Date: Yes Travel Risk - International Travel Have you traveled outside of the country in past 3 weeks: No - Coronavirus Screening Are you exhibiting any of the following symptoms?: No Close contact with a COVID-19 positive Pt in past 14-21 Days: No - Review of Systems Constitutional: No Symptoms, No Fever, No Chills Eyes: No Symptoms Ears, Nose, & Throat: No Symptoms Respiratory: No Symptoms, No Cough, No Dyspnea Cardiac: No Symptoms, No Chest Pain, No Edema, No Syncope Abdominal/Gastrointestinal: No Symptoms, No Abdominal Pain, No Nausea, No Vomiting, No Diarrhea Genitourinary Symptoms: No Symptoms, No Dysuria Musculoskeletal: No Symptoms, No Back Pain, No Neck Pain Skin: No Symptoms, No Rash Neurological: No Symptoms, No Dizziness, No Focal Weakness, No Sensory Changes Psychological: No Symptoms Endocrine: No Symptoms Hematologic/Lymphatic: No Symptoms Immunological/Allergic: No Symptoms All Other Systems: Reviewed and Negative - Past Medical History Pertinent Past Medical History: Yes Neurological History: Seizures ENT History: No Pertinent History Cardiac History: High Cholesterol Respiratory History: COPD Endocrine Medical History: Other Musculoskeletal History: Degenerative Disk Disease, Fibromyalgia GI Medical History: Esophageal Disorder, GERD History: No Pertinent History Psycho-Social History: Anxiety, Depression, Panic Disorder Female Reproductive Disorders: Abnormal Uterine Bleeding Other Medical History: Lupus, Neuropathy, DDD - Past Surgical History Past Surgical History: Yes Neuro Surgical History: No Pertinent History Cardiac: No Pertinent History Respiratory: No Pertinent History Gastrointestinal: No Pertinent History Genitourinary: No Pertinent History Musculoskeletal: Other Female Surgical History: Section, Tubal Ligation, Other Other Surgical History: ABLATION - TUBAL LIGATION. BILATERAL WRIST SURGERY. PLATE AND TWO SCREWS IN THE BACK OF NECK. 12/26/20 Surgery to back - Social History Smoking Status: Current every day smoker How long have you smoked: 30 years Exposure to second hand smoke: Yes Drug Use: none Patient Lives Alone: No - Female History Hx Last Menstrual Period: Tubal Hx Now: No - Nursing Vital Signs Nursing Vital Signs: Initial Vital Signs Temperature 97.9 F 12/31/20 21:22 Pulse Rate 111 H 12/31/20 21:22 Respiratory Rate 20 12/31/20 21:22 Blood Pressure 123/96 12/31/20 21:22 O2 Sat by Pulse Oximetry 100 12/31/20 21:22 Pain Scale Pain Intensity 5 - Physical Exam General Appearance: no apparent distress, alert Eye Exam: PERRL/EOMI, eyes nml inspection Ears, Nose, Throat Exam: normal ENT inspection, pharynx normal, moist mucous membranes Neck Exam: normal inspection, non-tender, supple, full range of motion, other (Surgical site healing well.) Respiratory Exam: normal breath sounds, lungs clear, No respiratory distress Cardiovascular Exam: regular rate/rhythm, normal heart sounds Gastrointestinal/Abdomen Exam: soft, distention (Slightly distended abdomen. Undifferentiated tenderness.), No tenderness, No mass, No pulsatile mass, No hepatomegaly, No organomegaly Back Exam: normal inspection, normal range of motion, No CVA tenderness, No vertebral tenderness Extremity Exam: normal inspection, normal range of motion, pelvis stable Neurologic Exam: alert, 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, cooperative, normal mood/affect, nml cerebellar function, sensation nml, No motor deficits Skin Exam: normal color, warm, dry Lymphatic Exam: No adenopathy SpO2 Interpretation: normal SpO2: 99 O2 Delivery: Room Air - Course Nursing assessment & vital signs reviewed: Yes - CT Exams Abdomen/Pelvis CT Interpretation: Tele-radiologist Report (Mild to moderate retained feces. 2.0 cm exophytic high density complex left renal cyst versus neoplasm arising from the upper pole left kidney. Increased in size since the previous exam. Follow-up according to the staff radiologist final report.) Ordered Tests: Active Orders 24 hr Category Date Time Status IV Insertion STAT Care 12/31/20 21:25 Active ABDOMEN AND PELVIS W/0 CONTRAS [CT] Stat Exams 12/31/20 21:26 Taken CBC W DIFF Stat Lab 12/31/20 21:55 Completed CMP Stat Lab 12/31/20 21:55 Completed LIPASE Stat Lab 12/31/20 21:55 Completed UA W/RFX UR CULTURE Stat Lab 12/31/20 21:41 Completed Medication Summary Discontinued Medications Generic Name Dose Route Start Last Admin Trade Name Freq PRN Reason Stop Dose Admin Bisacodyl 10 mg 12/31/20 21:27 12/31/20 22:13 Dulcolax 10 Mg Supp DC 12/31/20 21:28 10 mg STAT ONE Administration Sodium Chloride 1,000 mls @ 999 mls/hr 12/31/20 21:25 12/31/20 22:05 Sodium Chloride 0.9% 1000 Ml IV 12/31/20 22:25 999 mls/hr .Q1H1M STA Administration Sodium Chloride Confirm 12/31/20 21:32 Sodium Chloride 0.9% 1000 Ml Administered 12/31/20 21:33 Dose 1,000 mls @ ud .ROUTE .STK-MED ONE Lab/Rad Data: Laboratory Result Diagrams 12/31/20 21:55 12/31/20 21:55 Laboratory Results 12/31/20 12/31/20 12/31/20 Range/Units 21:55 21:55 21:41 WBC 12.8 H (4.0-10.5) K/mm3 RBC 4.36 (4.1-5.4) M/mm3 Hgb 14.3 (12.0-16.0) gm/dl Hct 42.1 (35-47) % MCV 96.6 (78-100) fl MCH 32.8 H (26-32) pg MCHC 34.0 (32-36) g/dl RDW 12.8 (11.5-14.0) % Plt Count 430 (150-450) K/mm3 MPV 9.2 (7.5-11.0) fl Gran % 65.9 (36.0-66.0) % Eos # (Auto) 0.69 H (0-0.5) Absolute Lymphs (auto) 2.66 (1.0-4.6) Absolute Monos (auto) 0.99 (0.0-1.3) Lymphocytes % 20.8 L (24.0-44.0) % Monocytes % 7.7 (0.0-12.0) % Eosinophils % 5.4 H (0.00-5.0) % Basophils % 0.2 (0.0-0.4) % Absolute Granulocytes 8.43 H (1.4-6.9) Basophils # 0.03 (0-0.4) Sodium 138 (137-145) mmol/L Potassium 3.9 (3.5-5.1) mmol/L Chloride 98 (98-107) mmol/L Carbon Dioxide 29 (22-30) mmol/L Anion Gap 14.5 (5-15) MEQ/L BUN 13 (7-17) mg/dL Creatinine 0.88 (0.52-1.04) mg/dL Estimated GFR > 60.0 ML/MIN Glucose 107 H (74-106) mg/dL Calcium 9.7 (8.4-10.2) mg/dL Total Bilirubin 0.30 (0.2-1.3) mg/dL AST 35 (14-36) U/L ALT 30 (0-35) U/L Alkaline Phosphatase 61 (38-126) U/L Serum Total Protein 8.0 (6.3-8.2) g/dL Albumin 4.5 (3.5-5.0) g/dL Lipase 51 (23-300) U/L Urine Color YELLOW (YELLOW) Urine Appearance SLIGHTLY CLOUDY (CLEAR) Urine pH 7.0 (5-6) Ur Specific [place] 1.019 (1.005-1.025) Urine Protein 30 (Negative) Urine Ketones NEGATIVE (NEGATIVE) Urine Blood NEGATIVE (0-5) Ross/ul Urine Nitrite NEGATIVE (NEGATIVE) Urine Bilirubin NEGATIVE (NEGATIVE) Urine Urobilinogen 2 (0-1) mg/dL Ur Leukocyte Esterase NEGATIVE (NEGATIVE) Urine WBC (Auto) 3-5 (0-5) /HPF Urine RBC (Auto) 3-5 (0-2) /HPF U Epithel Cells (Auto) FEW (FEW) /HPF Urine Bacteria (Auto) NONE (NEGATIVE) /HPF Urine Mucus (Auto) SLIGHT (NEGATIVE) /HPF Urine Culture Reflexed NO (NO) Urine Glucose NEGATIVE (NEGATIVE) mg/dL - Progress Progress: improved Progress Note: Patient received Dulcolax suppository. Patient had several bowel movements in our ED. Patient's pain resolved. Patient felt relief. CT abdomen pelvis confirmed constipation however incidentally a left renal mass observed at the superior pole. Patient was informed of this mass. We spoke to patient's regarding this mass as well. Patient advised to follow-up with her primary care doctor for further evaluation of this mass. Patient agrees to follow-up with her primary care doctor within 48 hours for reevaluation. 12/31/20 23:19 12/31/20 23:21 Counseled pt/family regarding: lab results, diagnosis, need for follow-up, rad results - Departure Departure Disposition: Home Clinical Impression: Renal neoplasm, Constipation Condition: Stable Critical Care Time: No Referrals: MOHIT SCHROEDER MD [Primary Care Provider] - Instructions: Constipation, Adult (DC) Additional Instructions: Your CAT scan of the abdomen and pelvis reveals a 2 cm left kidney mass concerning for possible cancer. You are required to follow-up with a urologist or your primary care doctor for further evaluation of this mass. It is likely that this mass may need to be excised/biopsied for final diagnosis. Discharge/Care Plan CESAR AGUSTIN was seen on 12/31/20 in the Emergency Room. The patient was counseled regarding Diagnosis,Lab results, Imaging studies, need for follow up and when to return to the Emergency Room. Prescriptions given: Discharge Note I have spoken with the patient and/or caregivers. I have explained the patient's condition, diagnosis and treatment plan based on the information available to me at this time. I have answered the patient's and/or caregiver's questions and addressed any concerns. The patient and/or caregivers have as good understanding of the patient's diagnosis, condition and treatment plan as can be expected at this point. The vital signs have been stable. The patient's condition is stable and appropriate for discharge from the emergency department. The patient will pursue further outpatient evaluation with the primary care physician or other designated or consulting physician as outlined in the discharge instructions. The patient and/or caregivers are agreeable to this plan of care and follow-up instructions have been explained in detail. The patient and/or caregivers have received these instruction. The patient/and or caregivers are aware that any significant change in condition or worsening of symptoms should prompt an immediate return to this or the closest emergency department or call 911.
[2020-12-31 23:02] VITALS: BP 120/64; PULSE 101
--- NOTE | 2021-01-01 09:09 | XRAY ---
Indication: Abdomen pain. Multiple contiguous axial images obtained through the abdomen and pelvis without contrast. Comparison: November 14, 2018. Lung bases demonstrates new incompletely visualized left lower lobe subsegmental atelectasis. Stable tiny right base calcified granuloma. Heart is not enlarged. Noncontrasted stomach and bowel loops appear nonobstructed. Normal appendix. New mild/moderate diffuse fecal debris throughout. There remains fatty hepatomegaly today measuring 21 cm and splenic calcified granulomas. Left superior kidney demonstrates enlarging 2.1 cm well-circumscribed round hypodense noncalcified mass, previously 1.[address] abdomen/pelvis with contrast exam favors cyst. New 4 cm right pelvis cystic mass just posterior to the uterus possibly ovary in etiology. No free fluid/air. Remaining liver, gallbladder, pancreas, spleen, adrenal glands, kidneys, ureters, bladder, uterus, and aorta appear unremarkable for noncontrast exam. Osseous structures intact. No ventral or inguinal hernias. Impression: 1. New 4 cm right pelvis cystic mass possibly ovary in etiology. Pelvic sonogram may yield further information if clinically warranted. 2. Enlarging CT proven left upper renal cystic mass. Recommend initial renal sonogram to further characterize. 3. New diffuse fecal stasis without obstruction. 4. New left lower lobe subsegmental atelectasis. Comment: Preliminary interpretation was made by [facility] who does not report incidental pelvic cystic mass.
== END 2020-12-31 23:16 | disposition home or self-care (01) ==
LOC: ED 21:09
DX: D49.512 Neoplasm of unspecified behavior of left kidney (principal); K59.00 Constipation, unspecified; R10.9 Unspecified abdominal pain; Z79.891 Long term (current) use of opiate analgesic; Z79.899 Other long term (current) drug therapy; E78.00 Pure hypercholesterolemia, unspecified; J44.9 Chronic obstructive pulmonary disease, unspecified; M79.7 Fibromyalgia
CPT/HCPCS: 36000; 36415; 74176; 80053; 81001; 83690; 85025; 96374; 99284; A9270-GY

== ENCOUNTER 2021-03-07 18:04 | Emergency (ER) | payer OTHER ==
[2021-03-07] MEDS ORDERED: BABY ASPIRIN 81 MG CHEW PO ONE (18:29)
--- NOTE | 2021-03-07 18:29 | ERPHSYRPT ---
- History of Present Illness Time Seen by Provider: 03/07/21 18:28 Historian: patient Exam Limitations: no limitations Physician History: This is a 45-year-old white female who presents with substernal and epigastric nonradiating chest pain that is been present intermittently since yesterday. Patient states her pain is worse when she lies flat. Patient is a smoker. She has a history degree of COPD and fibromyalgia. She also has a history of anxiety depression and panic disorder. Patient has not had a cough. She has not had a fever. She has no abdominal pain. Patient has a history of hypertension. She has no primary history of any cardiac disease. She has no cardiac stents in the past. She said that when she was in her early 20s she was told she had a heart attack. She does not see a photogeologist. Timing/Duration: yesterday Activities at Onset: none Location: substernal, central, epigastric Chest Pain Radiation: no radiation Severity of Pain-Max: moderate Severity of Pain-Current: mild Modifying Factors: Improves With: lying down Associated Symptoms: denies symptoms Prior Chest Pain/Cardiac Workup: no prior chest pain Nitro Today/Relief: no nitro taken today Aspirin Treatment Today: 325 mg x 1, provided by ED Allergies/Adverse Reactions: Penicillins Allergy (Verified 03/07/21 18:11) Rash propoxyphene HCl [From Darvon] Allergy (Verified 03/07/21 18:11) PASS OUT hydromorphone [From Dilaudid] Adverse Reaction (Verified 03/07/21 18:11) Patient states pill form caused her to become mean and start having blisters in her mouth and nose. Home Medications: Erenumab-Aooe [Aimovig Autoinjector] 170 mg IJ UD 02/20/19 [History] Levetiracetam 750 mg PO BID 02/20/19 [History] Propranolol HCl 20 mg [Inderal 20 MG] 40 mg PO DAILY 02/20/19 [History] Gabapentin 300 mg PO BID 07/09/20 [History] Ubrogepant [Ubrelvy] 50 mg PO DAILY PRN 07/09/20 [History] Cyclobenzaprine HCl 10 mg [Cyclobenzaprine 10 MG] 1 tab PO DAILY PRN 03/07/21 [History] Hx Tetanus, Diphtheria Vaccination/Date Given: Yes Hx Influenza Vaccination/Date Given: Yes Hx Pneumococcal Vaccination/Date Given: No Travel Risk - International Travel Have you traveled outside of the country in past 3 weeks: No - Coronavirus Screening Are you exhibiting any of the following symptoms?: No Close contact with a COVID-19 positive Pt in past 14-21 Days: No - Review of Systems Constitutional: No Symptoms Eyes: No Symptoms Ears, Nose, & Throat: No Symptoms Respiratory: No Symptoms Cardiac: Chest Pain Abdominal/Gastrointestinal: No Symptoms Genitourinary Symptoms: No Symptoms Musculoskeletal: No Symptoms Skin: No Symptoms Neurological: No Symptoms Psychological: No Symptoms Endocrine: No Symptoms Hematologic/Lymphatic: No Symptoms Immunological/Allergic: No Symptoms All Other Systems: Reviewed and Negative - Past Medical History Pertinent Past Medical History: Yes Neurological History: Seizures ENT History: No Pertinent History Cardiac History: High Cholesterol Respiratory History: COPD Endocrine Medical History: Other Musculoskeletal History: Degenerative Disk Disease, Fibromyalgia GI Medical History: Esophageal Disorder, GERD History: No Pertinent History Psycho-Social History: Anxiety, Depression, Panic Disorder Female Reproductive Disorders: Abnormal Uterine Bleeding Other Medical History: Lupus, Neuropathy, DDD - Past Surgical History Past Surgical History: Yes Neuro Surgical History: No Pertinent History Cardiac: No Pertinent History Respiratory: No Pertinent History Gastrointestinal: No Pertinent History Genitourinary: No Pertinent History Musculoskeletal: Other Female Surgical History: Section, Tubal Ligation, Other Other Surgical History: ABLATION - TUBAL LIGATION. BILATERAL WRIST SURGERY. PLATE AND TWO SCREWS IN THE BACK OF NECK. 12/26/20 Surgery to back - Social History Smoking Status: Current every day smoker How long have you smoked: 30 years Exposure to second hand smoke: Yes Drug Use: none Patient Lives Alone: No - Nursing Vital Signs Nursing Vital Signs: Initial Vital Signs Temperature 97.9 F 03/07/21 18:05 Pulse Rate 86 03/07/21 18:05 Respiratory Rate 20 03/07/21 18:05 Blood Pressure 118/79 03/07/21 18:05 O2 Sat by Pulse Oximetry 99 03/07/21 18:05 Pain Scale Pain Intensity 8 - Physical Exam General Appearance: no apparent distress, alert, anxiety Eye Exam: PERRL/EOMI, eyes nml inspection Ears, Nose, Throat Exam: normal ENT inspection, moist mucous membranes Neck Exam: normal inspection, non-tender, supple, full range of motion Respiratory Exam: normal breath sounds, lungs clear, airway intact, No chest te nderness, No respiratory distress Cardiovascular Exam: regular rate/rhythm, normal heart sounds, normal peripheral pulses Gastrointestinal/Abdomen Exam: soft, normal bowel sounds, No tenderness Pelvic Exam: not done Rectal Exam: not done Extremity Exam: normal inspection, normal range of motion, No pelvis stable Neurologic Exam: alert, 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, cooperative, client service professional II-XII nml as tested, nml cerebellar function, nml station & gait, sensation nml Skin Exam: normal color, warm, dry Lymphatic Exam: No adenopathy SpO2 Interpretation: normal O2 Delivery: Room Air - Course Nursing assessment & vital signs reviewed: Yes EKG Interpreted by Me: RATE (90), Sinus Rhythm, NORMAL AXIS, NORMAL INTERVALS, NORMAL QRS, NORMAL ST-T, Other (There are no acute ischemic changes on today's EKG. When compared to comparison EKG on 06/2020 shows no acute changes.) Ordered Tests: Active Orders 24 hr Category Date Time Status Entry Engineer STAT Care 03/07/21 18:30 Active EKG-ER Only STAT Care 03/07/21 18:29 Active IV Insertion STAT Care 03/07/21 18:29 Active Pulse Oximetry (ED) STAT Care 03/07/21 18:29 Active CHEST WITH CONTRAST [CT] Stat Exams 03/07/21 19:32 Taken CBC W DIFF Stat Lab 03/07/21 18:48 Completed CMP Stat Lab 03/07/21 18:48 Completed D-DIMER QUANTITATIVE Stat Lab 03/07/21 18:48 Completed NT PRO BNP Stat Lab 03/07/21 18:48 Completed PROTIME WITH INR Stat Lab 03/07/21 18:48 Completed TROPONIN Q3H Lab 03/07/21 18:48 Completed TROPONIN Q3H Lab 03/07/21 22:02 Received TROPONIN Q3H Lab 03/08/21 00:30 Ordered TROPONIN Q3H Lab 03/08/21 03:30 Ordered TROPONIN Q3H Lab 03/08/21 06:30 Ordered Medication Summary Discontinued Medications Generic Name Dose Route Start Last Admin Trade Name Freq PRN Reason Stop Dose Admin Hydrocodone Bitart/Acetaminophen 1 tab 03/07/21 19:19 03/07/21 19:42 Orient 5/325 Mg PO 03/07/21 19:20 Not Given STAT ONE Hydrocodone Bitart/Acetaminophen Confirm 03/07/21 19:36 Orient 5/325 Mg Administered 03/07/21 19:37 Dose 1 tab .ROUTE .STK-MED ONE Al Hydrox/Mg Hydrox/Simethicone Confirm 03/07/21 20:21 Maalox Es 30 Ml Unit Dose Administered 03/07/21 20:22 Dose 30 ml .ROUTE .STK-MED ONE Aspirin 324 mg 03/07/21 18:29 03/07/21 18:52 Baby Aspirin 81 Mg Chew PO 03/07/21 18:30 324 mg STAT ONE Administration Aspirin Confirm 03/07/21 18:52 Baby Aspirin 81 Mg Chew Administered 03/07/21 18:53 Dose 324 mg .ROUTE .STK-MED ONE Sodium Chloride 500 mls @ 999 mls/hr 03/07/21 19:32 03/07/21 19:37 Sodium Chloride 0.9% 500 Ml IV 03/07/21 20:02 999 mls/hr .Q31M ONE Administration Sodium Chloride Confirm 03/07/21 19:36 Sodium Chloride 0.9% 500 Ml Administered 03/07/21 19:37 Dose 500 mls @ ud IV .STK-MED ONE Ketorolac Tromethamine 30 mg 03/07/21 19:44 03/07/21 19:49 Toradol 30 Mg Injection IV 03/07/21 19:45 30 mg STAT ONE Administration Ketorolac Tromethamine Confirm 03/07/21 19:44 Toradol 30 Mg Injection Administered 03/07/21 19:45 Dose 30 mg .ROUTE .STK-MED ONE Lidocaine HCl Confirm 03/07/21 20:21 Xylocaine Hcl Viscous * Administered 03/07/21 20:22 Dose 1 ml .ROUTE .STK-MED ONE Magnesium Hydroxide 45 ml 03/07/21 20:13 03/07/21 20:32 Gi Cocktail 45 Ml (Maalox/Lidocaine) PO 03/07/21 20:14 45 ml STAT ONE Administration Morphine Sulfate 4 mg 03/07/21 20:12 03/07/21 20:24 Morphine Sulfate 4 Mg Inj IV 03/07/21 20:13 4 mg STAT ONE Administration Morphine Sulfate Confirm 03/07/21 20:18 Morphine Sulfate 4 Mg Inj Administered 03/07/21 20:19 Dose 4 mg .ROUTE .STK-MED ONE Ondansetron HCl 4 mg 03/07/21 19:18 03/07/21 19:38 Zofran 4 Mg/2 Ml Vial IV 03/07/21 19:19 4 mg STAT ONE Administration Ondansetron HCl Confirm 03/07/21 19:36 Zofran 4 Mg/2 Ml Vial Administered 03/07/21 19:37 Dose 4 mg .ROUTE .STK-MED ONE Lab/Rad Data: Laboratory Result Diagrams 03/07/21 18:48 03/07/21 18:48 Laboratory Results 03/07/21 03/07/21 03/07/21 Range/Units 18:48 18:48 18:48 WBC (4.0-10.5) K/mm3 RBC (4.1-5.4) M/mm3 Hgb (12.0-16.0) gm/dl Hct (35-47) % MCV (78-100) fl MCH (26-32) pg MCHC (32-36) g/dl RDW (11.5-14.0) % Plt Count (150-450) K/mm3 MPV (7.5-11.0) fl Gran % (36.0-66.0) % Eos # (Auto) (0-0.5) Absolute Lymphs (auto) (1.0-4.6) Absolute Monos (auto) (0.0-1.3) Lymphocytes % (24.0-44.0) % Monocytes % (0.0-12.0) % Eosinophils % (0.00-5.0) % Basophils % (0.0-0.4) % Absolute Granulocytes (1.4-6.9) Basophils # (0-0.4) PT 10.6 (9.95-12.35) SECONDS INR 0.94 (0.8-3.0) D-Dimer < 215 L (215-500) ng/mL Sodium 137 (137-145) mmol/L Potassium 3.8 (3.5-5.1) mmol/L Chloride 105 (98-107) mmol/L Carbon Dioxide 22 (22-30) mmol/L Anion Gap 13.5 (5-15) MEQ/L BUN 23 H (7-17) mg/dL Creatinine 0.75 (0.52-1.04) mg/dL Estimated GFR > 60.0 ML/MIN Glucose 154 H (74-106) mg/dL Calcium 8.8 (8.4-10.2) mg/dL Total Bilirubin 0.20 (0.2-1.3) mg/dL AST 23 (14-36) U/L ALT 18 (0-35) U/L Alkaline Phosphatase 55 (38-126) U/L Troponin I < 0.012 (0.000-0.034) ng/mL NT-Pro-B Natriuret Pep 22.0 (0-450) pg/mL Serum Total Protein 6.7 (6.3-8.2) g/dL Albumin 3.9 (3.5-5.0) g/dL 03/07/21 Range/Units 18:48 WBC 10.9 H (4.0-10.5) K/mm3 RBC 3.70 L (4.1-5.4) M/mm3 Hgb 12.0 (12.0-16.0) gm/dl Hct 37.0 (35-47) % MCV 100.0 (78-100) fl MCH 32.4 H (26-32) pg MCHC 32.4 (32-36) g/dl RDW 13.3 (11.5-14.0) % Plt Count 384 (150-450) K/mm3 MPV 10.0 (7.5-11.0) fl Gran % 63.7 (36.0-66.0) % Eos # (Auto) 0.41 (0-0.5) Absolute Lymphs (auto) 2.70 (1.0-4.6) Absolute Monos (auto) 0.79 (0.0-1.3) Lymphocytes % 24.8 (24.0-44.0) % Monocytes % 7.2 (0.0-12.0) % Eosinophils % 3.8 (0.00-5.0) % Basophils % 0.5 (0.0-0.4) % Absolute Granulocytes 6.95 H (1.4-6.9) Basophils # 0.05 (0-0.4) PT (9.95-12.35) SECONDS INR (0.8-3.0) D-Dimer (215-500) ng/mL Sodium (137-145) mmol/L Potassium (3.5-5.1) mmol/L Chloride (98-107) mmol/L Carbon Dioxide (22-30) mmol/L Anion Gap (5-15) MEQ/L BUN (7-17) mg/dL Creatinine (0.52-1.04) mg/dL Estimated GFR ML/MIN Glucose (74-106) mg/dL Calcium (8.4-10.2) mg/dL Total Bilirubin (0.2-1.3) mg/dL AST (14-36) U/L ALT (0-35) U/L Alkaline Phosphatase (38-126) U/L Troponin I (0.000-0.034) ng/mL NT-Pro-B Natriuret Pep (0-450) pg/mL Serum Total Protein (6.3-8.2) g/dL Albumin (3.5-5.0) g/dL - Progress Progress: improved, re-examined Air Movement: good Progress Note: 03/07/21 20:12 Patient states that she does not want the Orient pain pill. I was attempting to avoid Dilaudid which she states she is allergic to the liquid form. She also wanted to avoid the intravenous form of allotted as well. She states that she cannot take morphine and has taken in the past but it does make her little nauseated. We are using Toradol first and if she still needs pain control we will give her a dose of morphine intravenously. 03/07/21 22:07 CAT scan of the chest shows no obvious central pulmonary emboli. There is a new small hiatal hernia versus esophageal mass. The remaining chest is negative. Blood Culture(s) Obtained: No Antibiotics given: No Counseled pt/family regarding: lab results, diagnosis, need for follow-up - Departure Departure Disposition: Home Clinical Impression: Chest pain, Epigastric pain Condition: Stable Critical Care Time: No Referrals: DOCTOR,NO FAMILY [Primary Care Provider] - Additional Instructions: Call your primary care doctor tomorrow to make arrangements for follow-up appointment. Discussed with them possible referral to a photogeologist if indicated. Discussed with your primary care doctor regarding further evaluation of your gallbladder if indicated.
[2021-03-07 18:52] LABS: Absolute Neutrophil Ct (ANC) 6.95 (1.4-6.9); BASOPHIL % 0.5 % (0.0-0.4); Basophil (Absolute #) 0.05 (0-0.4); Eosinophil % 3.8 % (0.00-5.0); Eosinophil (Absolute #) 0.41 (0-0.5); Lymphocytes % 24.8 % (24.0-44.0); Mean Corpuscular Hemoglobin 32.4 pg (26-32); Mean Corpuscular Hgb Concent. 32.4 g/dl (32-36); Monocyte (Absolute #) 0.79 (0.0-1.3); Monocytes % 7.2 % (0.0-12.0); Neutrophil % 63.7 % (36.0-66.0); Platelet Count 384 K/mm3 (150-450); Red Cell Distribution Width 13.3 % (11.5-14.0); White Blood Count 10.9 K/mm3 (4.0-10.5)
[2021-03-07] MEDS ORDERED: BABY ASPIRIN 81 MG CHEW ONE (18:52)
[2021-03-07 19:01] LABS: INR 0.94 (0.8-3.0); PROTIME 10.6 SECONDS (9.95-12.35)
[2021-03-07 19:08] LABS: D-DIMER QUANTITATIVE < 215 ng/mL (215-500)
[2021-03-07 19:14] LABS: ALBUMIN 3.9 g/dL (3.5-5.0); ALKALINE PHOSPHATASE 55 U/L (38-126); ANION GAP 13.5 MEQ/L (5-15); BLOOD UREA NITROGEN 23 mg/dL (7-17); CHLORIDE 105 mmol/L (98-107); Calcium 8.8 mg/dL (8.4-10.2); Carbon Dioxide 22 mmol/L (22-30); Creatinine 1 0.75 mg/dL (0.52-1.04); EST GLOMERULAR FILTRATION RATE > 60.0 ML/MIN; Glucose 154 mg/dL (74-106); Potassium 3.8 mmol/L (3.5-5.1); SGOT/AST 23 U/L (14-36); SGPT/ALT 18 U/L (0-35); SODIUM 137 mmol/L (137-145); Total Protein 6.7 g/dL (6.3-8.2)
[2021-03-07] MEDS ORDERED: Zofran 4 MG/2 ML VIAL IV ONE (19:18)
[2021-03-07] MEDS ORDERED: NORCO 5/325 MG PO ONE (19:19)
[2021-03-07] MEDS ORDERED: Sodium Chloride 0.9% 500 ML 500 ML IV ONE ×2 (19:32→19:36)
[2021-03-07] MEDS ORDERED: Zofran 4 MG/2 ML VIAL ONE (19:36)
[2021-03-07] MEDS ORDERED: NORCO 5/325 MG ONE (19:36)
[2021-03-07] MEDS ORDERED: TORAdol 30 mg Injection IV ONE (19:44)
[2021-03-07] MEDS ORDERED: TORAdol 30 mg Injection ONE (19:44)
[2021-03-07] MEDS ORDERED: MORPHINE SULFATE 4 MG INJ IV ONE (20:12)
[2021-03-07] MEDS ORDERED: GI COCKTAIL 45 ML (Maalox/Lidocaine) PO ONE (20:13)
[2021-03-07] MEDS ORDERED: MORPHINE SULFATE 4 MG INJ ONE (20:18)
[2021-03-07] MEDS ORDERED: MAALOX ES 30 ML UNIT DOSE ONE (20:21)
[2021-03-07] MEDS ORDERED: XYLOCAINE HCl Viscous ONE (20:21)
[2021-03-07 22:55] VITALS: BP 117/60; PULSE 77; O2SAT 95
--- NOTE | 2021-03-08 08:56 | XRAY ---
Indication: Chest/epigastric pain. Short of breath. Esophageal disorder or mass. Multiple contiguous axial images obtained through the chest using 80 cc Isovue 370 contrast and PE protocol. Comparison: December 31, 2017. Pulmonary embolus evaluation limited due to suboptimal opacification of the pulmonary arteries and mild respiration artifact. No obvious central pulmonary embolus. Heart is not enlarged. Aorta normal in course and caliber. Again incidental small mediastinal and left hilar calcified nodes. No pathologic mediastinal/hilar lymphadenopathy. New small hiatal hernia versus esophageal mass as clinically reported. Lungs again demonstrate mild bilateral dependent atelectasis. Stable right middle lobe and right lower lobe micronodules again favored to be granulomatous. No new pulmonary mass/nodule, infiltrate, or effusion. Bony thorax intact again with minimal degenerative changes throughout the spine and C7-T1 fusion hardware. Limited upper abdomen again demonstrates multiple calcified splenic granulomas. New 1.7 cm left upper renal exophytic cyst. Impression: 1. Pulmonary embolus evaluation limited as detailed. No obvious central pulmonary embolus or acute cardiopulmonary abnormalities. 2. New small hiatal hernia versus esophageal mass. 3. New left renal cyst. 4. Again bilateral dependent atelectasis, chronic bony findings, and old granulomatous disease.
== END 2021-03-07 23:00 | disposition home or self-care (01) ==
LOC: ED 18:04
DX: R07.9 Chest pain, unspecified (principal); R10.13 Epigastric pain
CPT/HCPCS: 36000; 36415; 71260; 80053; 83880; 84484; 85025; 85379; 85610; 93005; 93041; 94760; 96374; 96375; 99284; J1885; J2270; J2405; A9270-GY

== ENCOUNTER 2021-03-24 16:25 | Emergency (ER) | payer OTHER ==
--- NOTE | 2021-03-24 16:38 | ERPHSYRPT ---
- History of Present Illness Time Seen by Provider: 03/24/21 16:38 Historian: patient, family Exam Limitations: no limitations Physician History: This is a 45-year-old overweight white female who has a history of fibromyalgia, degenerative joint disease and COPD as well as anxiety, depression and panic disorder. She has a history of hypertension but no primary history of cardiac disease. Patient continues to smoke cigarettes. Patient states that today she had pain that began and her back and it was sharp and shot through to her front chest. It hurts worse when she takes a deep breath in. Patient was seen in this emergency department on 03-07-2021 with the same complaint. The work-up was negative for any acute cardiac or pulmonary issue. Patient is scheduled to see a photo editor tomorrow [place] [facility] Patient states the pain was significant and sharp and did not feel she could wait till tomorrow for management and evaluation. Timing/Duration: today Activities at Onset: none Quality: sharpness, stabbing Location: back (Starts in back and radiates through the central chest.) Severity of Pain-Max: moderate Severity of Pain-Current: moderate Modifying Factors: Improves With: breathing (Breath worsens) Associated Symptoms: denies symptoms Prior Chest Pain/Cardiac Workup: recently seen/treated Nitro Today/Relief: no nitro taken today Aspirin Treatment Today: 81 mg x 4, provided at home Allergies/Adverse Reactions: Penicillins Allergy (Verified 03/24/21 16:44) Rash propoxyphene HCl [From Darvon] Allergy (Verified 03/24/21 16:44) PASS OUT hydromorphone [From Dilaudid] Adverse Reaction (Verified 03/24/21 16:44) Patient states pill form caused her to become mean and start having blisters in her mouth and nose. Home Medications: Erenumab-Aooe [Aimovig Autoinjector] 170 mg IJ UD 02/20/19 [History] Levetiracetam 750 mg PO BID 02/20/19 [History] Propranolol HCl 20 mg [Inderal 20 MG] 40 mg PO DAILY 02/20/19 [History] Gabapentin 300 mg PO BID 07/09/20 [History] Ubrogepant [Ubrelvy] 50 mg PO DAILY PRN 07/09/20 [History] Cyclobenzaprine HCl 10 mg [Cyclobenzaprine 10 MG] 1 tab PO DAILY PRN 03/07/21 [History] Hx Tetanus, Diphtheria Vaccination/Date Given: Yes Hx Influenza Vaccination/Date Given: Yes Hx Pneumococcal Vaccination/Date Given: No Travel Risk - International Travel Have you traveled outside of the country in past 3 weeks: No - Coronavirus Screening Are you exhibiting any of the following symptoms?: No Close contact with a COVID-19 positive Pt in past 14-21 Days: No - Vaccine Status Have you recieved a 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: No - Review of Systems Constitutional: No Symptoms Eyes: No Symptoms Ears, Nose, & Throat: No Symptoms Respiratory: Dyspnea (Feels short of breath but her room air oxygenation is 100%) Cardiac: Chest Pain Abdominal/Gastrointestinal: No Symptoms Genitourinary Symptoms: No Symptoms Musculoskeletal: No Symptoms Skin: No Symptoms Neurological: No Symptoms Psychological: No Symptoms Endocrine: No Symptoms Hematologic/Lymphatic: No Symptoms Immunological/Allergic: No Symptoms All Other Systems: Reviewed and Negative - Past Medical History Pertinent Past Medical History: Yes Neurological History: Seizures ENT History: No Pertinent History Cardiac History: High Cholesterol Respiratory History: COPD Endocrine Medical History: Other Musculoskeletal History: Degenerative Disk Disease, Fibromyalgia GI Medical History: Esophageal Disorder, GERD History: No Pertinent History Psycho-Social History: Anxiety, Depression, Panic Disorder Female Reproductive Disorders: Abnormal Uterine Bleeding Other Medical History: Lupus, Neuropathy, DDD - Past Surgical History Past Surgical History: Yes Neuro Surgical History: No Pertinent History Cardiac: No Pertinent History Respiratory: No Pertinent History Gastrointestinal: No Pertinent History Genitourinary: No Pertinent History Musculoskeletal: Other Female Surgical History: Section, Tubal Ligation, Other Other Surgical History: ABLATION - TUBAL LIGATION. BILATERAL WRIST SURGERY. PLATE AND TWO SCREWS IN THE BACK OF NECK. 12/26/20 Surgery to back - Social History Smoking Status: Current every day smoker How long have you smoked: 30 years Exposure to second hand smoke: Yes Drug Use: none Patient Lives Alone: No - Nursing Vital Signs Nursing Vital Signs: Initial Vital Signs Temperature 98.0 F 03/24/21 16:27 Pulse Rate 110 H 03/24/21 16:27 Respiratory Rate 22 03/24/21 16:27 Blood Pressure 165/94 03/24/21 16:27 O2 Sat by Pulse Oximetry 100 03/24/21 16:27 Pain Scale Pain Intensity 5 - Physical Exam General Appearance: no apparent distress, alert, anxiety, obese Eye Exam: PERRL/EOMI, eyes nml inspection Ears, Nose, Throat Exam: normal ENT inspection, moist mucous membranes Neck Exam: normal inspection, non-tender, supple, full range of motion Respiratory Exam: normal breath sounds, chest tenderness, lungs clear, airway intact, No respiratory distress Cardiovascular Exam: regular rate/rhythm, normal heart sounds, normal peripheral pulses Gastrointestinal/Abdomen Exam: soft, normal bowel sounds, No tenderness Pelvic Exam: not done Rectal Exam: not done Back Exam: normal inspection, normal range of motion, No CVA tenderness, No vertebral tenderness Extremity Exam: normal inspection, normal range of motion Neurologic Exam: alert, 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, cooperative, 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 When compared to the EKG performed on 03/07/2021, there are no changes from that EKG.) Ordered Tests: Active Orders 24 hr Category Date Time Status Liability Claims Representative STAT Care 03/24/21 16:57 Active EKG-ER Only STAT Care 03/24/21 16:55 Active IV Insertion STAT Care 03/24/21 16:55 Active Pulse Oximetry (ED) STAT Care 03/24/21 16:55 Active CHEST 1 VIEW (PORTABLE) Stat Exams 03/24/21 16:55 Taken CBC W DIFF Stat Lab 03/24/21 16:55 Completed CMP Stat Lab 03/24/21 16:55 Completed D-DIMER QUANTITATIVE Stat Lab 03/24/21 16:55 Completed NT PRO BNP Stat Lab 03/24/21 16:55 Completed TROPONIN Q3H Lab 03/24/21 16:55 Completed TROPONIN Q3H Lab 03/24/21 20:00 Ordered TROPONIN Q3H Lab 03/24/21 23:00 Ordered TROPONIN Q3H Lab 03/25/21 02:00 Ordered TROPONIN Q3H Lab 03/25/21 05:00 Ordered Medication Summary Generic Name Dose Route Start Last Admin Trade Name Freq PRN Reason Stop Dose Admin Morphine Sulfate 4 mg 03/24/21 18:15 Morphine Sulfate 4 Mg Inj IV 03/24/21 18:16 STAT ONE Ondansetron HCl 4 mg 03/24/21 18:15 Zofran 4 Mg/2 Ml Vial IV 03/24/21 18:16 STAT ONE Discontinued Medications Generic Name Dose Route Start Last Admin Trade Name Manish PRN Reason Stop Dose Admin Aspirin 324 mg 03/24/21 16:55 03/24/21 17:05 Baby Aspirin 81 Mg Chew PO 03/24/21 16:56 Not Given STAT ONE Lab/Rad Data: Laboratory Result Diagrams 03/24/21 16:55 03/24/21 16:55 Laboratory Results 03/24/21 03/24/21 03/24/21 Range/Units 16:55 16:55 16:55 WBC (4.0-10.5) K/mm3 RBC (4.1-5.4) M/mm3 Hgb (12.0-16.0) gm/dl Hct (35-47) % MCV (78-100) fl MCH (26-32) pg MCHC (32-36) g/dl RDW (11.5-14.0) % Plt Count (150-450) K/mm3 MPV (7.5-11.0) fl Gran % (36.0-66.0) % Eos # (Auto) (0-0.5) Absolute Lymphs (auto) (1.0-4.6) Absolute Monos (auto) (0.0-1.3) Lymphocytes % (24.0-44.0) % Monocytes % (0.0-12.0) % Eosinophils % (0.00-5.0) % Basophils % (0.0-0.4) % Absolute Granulocytes (1.4-6.9) Basophils # (0-0.4) D-Dimer 326 (215-500) ng/mL Sodium 139 (137-145) mmol/L Potassium 3.5 (3.5-5.1) mmol/L Chloride 107 (98-107) mmol/L Carbon Dioxide 22 (22-30) mmol/L Anion Gap 14.3 (5-15) MEQ/L BUN 22 H (7-17) mg/dL Creatinine 0.69 (0.52-1.04) mg/dL Estimated GFR > 60.0 ML/MIN Glucose 114 H (74-106) mg/dL Calcium 9.9 (8.4-10.2) mg/dL Total Bilirubin 0.30 (0.2-1.3) mg/dL AST 24 (14-36) U/L ALT 15 (0-35) U/L Alkaline Phosphatase 61 (38-126) U/L Troponin I < 0.012 (0.000-0.034) ng/mL NT-Pro-B Natriuret Pep 34.4 (0-450) pg/mL Serum Total Protein 7.5 (6.3-8.2) g/dL Albumin 4.6 (3.5-5.0) g/dL 03/24/21 Range/Units 16:55 WBC 13.1 H (4.0-10.5) K/mm3 RBC 4.12 (4.1-5.4) M/mm3 Hgb 13.1 (12.0-16.0) gm/dl Hct 40.4 (35-47) % MCV 98.1 (78-100) fl MCH 31.8 (26-32) pg MCHC 32.4 (32-36) g/dl RDW 13.2 (11.5-14.0) % Plt Count 406 (150-450) K/mm3 MPV 10.2 (7.5-11.0) fl Gran % 65.8 (36.0-66.0) % Eos # (Auto) 0.34 (0-0.5) Absolute Lymphs (auto) 3.08 (1.0-4.6) Absolute Monos (auto) 1.00 (0.0-1.3) Lymphocytes % 23.6 L (24.0-44.0) % Monocytes % 7.7 (0.0-12.0) % Eosinophils % 2.6 (0.00-5.0) % Basophils % 0.3 (0.0-0.4) % Absolute Granulocytes 8.60 H (1.4-6.9) Basophils # 0.04 (0-0.4) D-Dimer (215-500) ng/mL Sodium (137-145) mmol/L Potassium (3.5-5.1) mmol/L Chloride (98-107) mmol/L Carbon Dioxide (22-30) mmol/L Anion Gap (5-15) MEQ/L BUN (7-17) mg/dL Creatinine (0.52-1.04) mg/dL Estimated GFR ML/MIN Glucose (74-106) mg/dL Calcium (8.4-10.2) mg/dL Total Bilirubin (0.2-1.3) mg/dL AST (14-36) U/L ALT (0-35) U/L Alkaline Phosphatase (38-126) U/L Troponin I (0.000-0.034) ng/mL NT-Pro-B Natriuret Pep (0-450) pg/mL Serum Total Protein (6.3-8.2) g/dL Albumin (3.5-5.0) g/dL - Progress Progress: improved, re-examined Air Movement: good Progress Note: 03/24/21 17:49 Chest x-ray shows no acute cardiopulmonary process. Blood Culture(s) Obtained: No Antibiotics given: No Counseled pt/family regarding: lab results, diagnosis, need for follow-up, rad results - Departure Departure Disposition: Home Clinical Impression: Chest pain Condition: Stable Critical Care Time: No Referrals: DOCTOR,NO FAMILY [Primary Care Provider] - Additional Instructions: Take all your medications as prescribed. Follow-up with your photo editor tomorrow morning.
[2021-03-24] MEDS: BABY ASPIRIN 81 MG CHEW PO ONE ×2 (17:02→17:05)
[2021-03-24 17:18] LABS: BASOPHIL % 0.3 % (0.0-0.4); Basophil (Absolute #) 0.04 (0-0.4); Eosinophil % 2.6 % (0.00-5.0); Eosinophil (Absolute #) 0.34 (0-0.5); Hematocrit 40.4 % (35-47); Hemoglobin 13.1 gm/dl (12.0-16.0); Lymphocyte (Absolute #) 3.08 (1.0-4.6); Lymphocytes % 23.6 % (24.0-44.0); Mean Cell Volume 98.1 fl (78-100); Mean Corpuscular Hemoglobin 31.8 pg (26-32); Mean Corpuscular Hgb Concent. 32.4 g/dl (32-36); Mean Platelet Volume 10.2 fl (7.5-11.0); Monocytes % 7.7 % (0.0-12.0); Neutrophil % 65.8 % (36.0-66.0); Platelet Count 406 K/mm3 (150-450); Red Blood Count 4.12 M/mm3 (4.1-5.4); Red Cell Distribution Width 13.2 % (11.5-14.0); White Blood Count 13.1 K/mm3 (4.0-10.5)
[2021-03-24 17:38] LABS: ALBUMIN 4.6 g/dL (3.5-5.0); ALKALINE PHOSPHATASE 61 U/L (38-126); ANION GAP 14.3 MEQ/L (5-15); BLOOD UREA NITROGEN 22 mg/dL (7-17); CHLORIDE 107 mmol/L (98-107); Calcium 9.9 mg/dL (8.4-10.2); Carbon Dioxide 22 mmol/L (22-30); Creatinine 1 0.69 mg/dL (0.52-1.04); EST GLOMERULAR FILTRATION RATE > 60.0 ML/MIN; Glucose 114 mg/dL (74-106); NT PRO BNP 34.4 pg/mL (0-450); Potassium 3.5 mmol/L (3.5-5.1); SGOT/AST 24 U/L (14-36); SGPT/ALT 15 U/L (0-35); SODIUM 139 mmol/L (137-145); Total Protein 7.5 g/dL (6.3-8.2)
[2021-03-24] MEDS ORDERED: Zofran 4 MG/2 ML VIAL IV ONE (18:15)
[2021-03-24] MEDS ORDERED: MORPHINE SULFATE 4 MG INJ IV ONE (18:15)
[2021-03-24] MEDS ORDERED: MORPHINE SULFATE 4 MG INJ ONE (18:17)
[2021-03-24] MEDS ORDERED: Zofran 4 MG/2 ML VIAL ONE (18:17)
[2021-03-24 18:25] VITALS: BP 141/89; PULSE 80; O2SAT 98
--- NOTE | 2021-03-25 08:42 | XRAY ---
Indication: Chest pain. Comparison: September 12, 2020. Portable chest demonstrates normal heart and lungs. Bony thorax intact again with lower cervical fusion hardware.
== END 2021-03-24 18:32 | disposition home or self-care (01) ==
LOC: ED 16:25
DX: R07.9 Chest pain, unspecified (principal); J44.9 Chronic obstructive pulmonary disease, unspecified; I10 Essential (primary) hypertension; I51.9 Heart disease, unspecified; Z79.899 Other long term (current) drug therapy
CPT/HCPCS: 36000; 36415; 71045; 80053; 83880; 84484; 85025; 85379; 93005; 93041; 94760; 96374; 96375; 99284; J2270; J2405; A9270-GY

== ENCOUNTER 2021-04-04 15:21 | Emergency (ER) | payer OTHER ==
[2021-04-04] MEDS ORDERED: TORAdol 30 mg Injection IM ONE (15:46)
[2021-04-04] MEDS ORDERED: Compazine 10 MG/2 ML IV ONE (15:46)
[2021-04-04] MEDS ORDERED: BENADRYL 50 MG/ML IV ONE (15:47)
[2021-04-04] MEDS ORDERED: Sodium Chloride 0.9% 1000 ML 1,000 ML IV STA (15:47)
[2021-04-04] MEDS ORDERED: TORAdol 30 mg Injection ONE (15:57)
[2021-04-04] MEDS ORDERED: BENADRYL 50 MG/ML ONE (15:57)
[2021-04-04] MEDS ORDERED: Sodium Chloride 0.9% 1000 ML 1,000 ML ONE (15:58)
[2021-04-04] MEDS ORDERED: Compazine 10 MG/2 ML ONE (15:58)
--- NOTE | 2021-04-04 17:11 | ERPHSYRPT ---
- History of Present Illness Time Seen by Provider: 04/04/21 15:35 Source: patient Exam Limitations: no limitations Patient Subjective Stated Complaint: pt here for headache for 3-4 days worse today with nausea and vomiting, pain is unrelieved by her normal migraine meds Triage Nursing Assessment: pt alert, walked in, holding head, resp easy, face mask in, skin w/d/p Physician History: Patient is a 45-year-old female presents to our ED with complaints of a migraine headache. Patient has history of migraine headaches. Today's migraine headache has been ongoing for 3 to 4 days. Migraine headache has not been responsive to her usual headache medication. Patient has been under severe stress lately. Patient stress due to home/social situation. Headache is associated with nausea and vomiting. No trauma no fever. No neck pain. Mild photophobia. Mild noise sensitivity. Patient declined CT head. She states she has had many CTs in the past. Symptoms are mild to moderate in intensity. No specific worsening improving factors. Patient voices no other complaints or concerns at this time. Timing/Duration: day(s) (Days ago.) Quality: aching Head Pain Location: occipital (Pain started at the base of her skull occipital area and stretches forward onto the frontal aspect of her head.) Severity of Pain-Max: moderate Severity of Pain-Current: moderate Recent Head Trauma: frequent headaches Modifying Factors: Improves With: exposure to light, noise Associated Symptoms: nausea/vomiting, sensitive to light, No confusion, No dizziness, No fatigue, No facial pain, No flushing, No nasal congestion, No nasa l drainage, No neck pain, No numbness in legs/feet, No seizures, No sinus infection, No trouble walking, No vision changes, No visual disturbance, No weakness Previous symptoms: same symptoms as today Allergies/Adverse Reactions: Penicillins Allergy (Verified 03/24/21 16:44) Rash propoxyphene HCl [From Darvon] Allergy (Verified 03/24/21 16:44) PASS OUT morphine Adverse Reaction (Verified 04/04/21 15:35) can not take pill form Home Medications: Erenumab-Aooe [Aimovig Autoinjector] 170 mg IJ UD 02/20/19 [History] Levetiracetam 750 mg PO BID 02/20/19 [History] Propranolol HCl 20 mg [Inderal 20 MG] 40 mg PO DAILY 02/20/19 [History] Gabapentin 300 mg PO BID 07/09/20 [History] Ubrogepant [Ubrelvy] 50 mg PO DAILY PRN 07/09/20 [History] Hx Tetanus, Diphtheria Vaccination/Date Given: Yes Hx Influenza Vaccination/Date Given: Yes Hx Pneumococcal Vaccination/Date Given: No Travel Risk - International Travel Have you traveled outside of the country in past 3 weeks: No - Coronavirus Screening Are you exhibiting any of the following symptoms?: Yes Symptoms: Headaches/Body Aches/Fatigue Close contact with a COVID-19 positive Pt in past 14-21 Days: No - Vaccine Status Have you recieved a 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: No - Review of Systems Constitutional: No Symptoms, No Fever, No Chills Eyes: No Symptoms Ears, Nose, & Throat: No Symptoms Respiratory: No Symptoms, No Cough, No Dyspnea Cardiac: No Symptoms, No Chest Pain, No Edema, No Syncope Abdominal/Gastrointestinal: No Symptoms, No Abdominal Pain, No Nausea, No Vomiting, No Diarrhea Genitourinary Symptoms: No Symptoms, No Dysuria Musculoskeletal: No Symptoms, No Back Pain, No Neck Pain Skin: No Symptoms, No Rash Neurological: No Symptoms, No Dizziness, No Focal Weakness, No Sensory Changes Psychological: No Symptoms Endocrine: No Symptoms Hematologic/Lymphatic: No Symptoms Immunological/Allergic: No Symptoms All Other Systems: Reviewed and Negative - Past Medical History Pertinent Past Medical History: Yes Neurological History: Seizures ENT History: No Pertinent History Cardiac History: High Cholesterol Respiratory History: COPD Endocrine Medical History: Other Musculoskeletal History: Degenerative Disk Disease, Fibromyalgia GI Medical History: Esophageal Disorder, GERD History: No Pertinent History Psycho-Social History: Anxiety, Depression, Panic Disorder Female Reproductive Disorders: Abnormal Uterine Bleeding Other Medical History: Lupus, Neuropathy, DDD - Past Surgical History Past Surgical History: Yes Neuro Surgical History: No Pertinent History Cardiac: No Pertinent History Respiratory: No Pertinent History Gastrointestinal: No Pertinent History Genitourinary: No Pertinent History Musculoskeletal: Other Female Surgical History: Section, Tubal Ligation, Other Other Surgical History: ABLATION - TUBAL LIGATION. BILATERAL WRIST SURGERY. PLATE AND TWO SCREWS IN THE BACK OF NECK. 12/26/20 Surgery to back - Social History Smoking Status: Current every day smoker How long have you smoked: 30 years Exposure to second hand smoke: Yes Drug Use: none Patient Lives Alone: No - Female History Hx Last Menstrual Period: post Hx Now: No - Nursing Vital Signs Nursing Vital Signs: Initial Vital Signs Temperature 97.1 F 04/04/21 15:28 Pulse Rate 76 04/04/21 15:28 Respiratory Rate 18 04/04/21 15:28 Blood Pressure 131/60 04/04/21 15:28 O2 Sat by Pulse Oximetry 94 L 04/04/21 15:28 Pain Scale Pain Intensity 0 - Physical Exam General Appearance: no apparent distress Eye Exam: PERRL/EOMI Ears, Nose, Throat Exam: normal ENT inspection, moist mucous membranes Neck Exam: normal inspection, supple, full range of motion, No meningismus Respiratory Exam: normal breath sounds, lungs clear Cardiovascular Exam: regular rate/rhythm, normal heart sounds Gastrointestinal/Abdominal Exam: soft, No tenderness, No distention Back Exam: normal inspection, normal range of motion Extremity Exam: normal inspection, normal range of motion Mental Status Exam: alert, 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, cooperative floor person Exam: normal hearing, normal speech, PERRL, tongue midline, No abnormal eye position, No abnormal pupil position, No abnormal speech, No facial asymmetry, No facial droop, No facial paresthesias, No facial weakness, No gaze palsy, No hearing deficit (R), No hearing deficit (L), No tongue deviation to R, No tongue deviation to L Coordination/Gait Exam: normal cerebellar function Motor/Sensory Exam: no motor deficit, no sensory deficit Skin Exam: normal color, warm, dry, No rash SpO2 Interpretation: normal SpO2: 94 O2 Delivery: Room Air - Course Nursing assessment & vital signs reviewed: Yes Ordered Tests: Active Orders 24 hr Category Date Time Status IV Insertion STAT Care 04/04/21 15:48 Active Medication Summary Discontinued Medications Generic Name Dose Route Start Last Admin Trade Name Freq PRN Reason Stop Dose Admin Diphenhydramine HCl 25 mg 04/04/21 15:47 04/04/21 16:00 Benadryl 50 Mg/Ml IV 04/04/21 15:48 25 mg STAT ONE Administration Diphenhydramine HCl Confirm 04/04/21 15:57 Benadryl 50 Mg/Ml Administered 04/04/21 15:58 Dose 50 mg .ROUTE .STK-MED ONE Sodium Chloride 1,000 mls @ 999 mls/hr 04/04/21 15:47 04/04/21 15:59 Sodium Chloride 0.9% 1000 Ml IV 04/04/21 16:47 999 mls/hr .Q1H1M STA Administration Sodium Chloride Confirm 04/04/21 15:58 Sodium Chloride 0.9% 1000 Ml Administered 04/04/21 15:59 Dose 1,000 mls @ ud .ROUTE .STK-MED ONE Ketorolac Tromethamine 30 mg 04/04/21 15:46 04/04/21 15:59 Toradol 30 Mg Injection IM 04/04/21 15:47 30 mg STAT ONE Administration Ketorolac Tromethamine Confirm 04/04/21 15:57 Toradol 30 Mg Injection Administered 04/04/21 15:58 Dose 30 mg .ROUTE .STK-MED ONE Prochlorperazine Edisylate 10 mg 04/04/21 15:46 04/04/21 16:00 Compazine 10 Mg/2 Ml IV 04/04/21 15:47 10 mg STAT ONE Administration Prochlorperazine Edisylate Confirm 04/04/21 15:58 Compazine 10 Mg/2 Ml Administered 04/04/21 15:59 Dose 10 mg .ROUTE .STK-MED ONE - Progress Progress: improved Air Movement: good Progress Note: Patient reassessed. Headache resolved. Vital stable. Patient requesting discharge. No negation for further work-up at this time. Will discharge home. Patient agrees to follow-up with her primary care doctor within 48 hours for reevaluation. Patient voiced no other complaints concerns at this time. 04/04/21 17:20 Blood Culture(s) Obtained: No Antibiotics given: No Counseled pt/family regarding: diagnosis, need for follow-up - Departure Departure Disposition: Home Clinical Impression: Migraine Condition: Stable Critical Care Time: No Referrals: DOCTOR,NO FAMILY [Primary Care Provider] - JAYDON VALDOVINOS [ACTIVE STAFF] - Additional Instructions: Discharge/Care Plan CESAR AGUSTIN was seen on 04/04/21 in the Emergency Room. The patient was counseled regarding Diagnosis,Lab results, Imaging studies, need for follow up and when to return to the Emergency Room. Prescriptions given: Discharge Note I have spoken with the patient and/or caregivers. I have explained the patient's condition, diagnosis and treatment plan based on the information available to me at this time. I have answered the patient's and/or caregiver's questions and addressed any concerns. The patient and/or caregivers have as good understanding of the patient's diagnosis, condition and treatment plan as can be expected at this point. The vital signs have been stable. The patient's condition is stable and appropriate for discharge from the emergency department. The patient will pursue further outpatient evaluation with the primary care physician or other designated or consulting physician as outlined in the discharge instructions. The patient and/or caregivers are agreeable to this plan of care and follow-up instructions have been explained in detail. The patient and/or caregivers have received these instruction. The patient/and or caregivers are aware that any significant change in condition or worsening of symptoms should prompt an immediate return to this or the closest emergency department or call 911.
[2021-04-04 17:47] VITALS: BP 110/78; PULSE 76; O2SAT 98
== END 2021-04-04 17:47 | disposition home or self-care (01) ==
LOC: ED 15:21
DX: G43.909 Migraine, unspecified, not intractable, without status migrainosus (principal)
CPT/HCPCS: 36000; 96360; 96374; 96375; 99284; J1200; J1885

== ENCOUNTER 2021-05-31 17:23 | Emergency (ER) | payer OTHER ==
[2021-05-31] MEDS ORDERED: TORAdol 30 mg Injection IV ONE (17:31)
[2021-05-31] MEDS ORDERED: ZOFRAN ODT 4 MG PO ONE (17:31)
[2021-05-31] MEDS ORDERED: Norflex 60 MG/2 ML IM ONE (17:32)
[2021-05-31] MEDS ORDERED: TORAdol 30 mg Injection ONE (17:41)
[2021-05-31] MEDS ORDERED: ZOFRAN ODT 4 MG ONE (17:42)
[2021-05-31] MEDS ORDERED: Norflex 60 MG/2 ML ONE (17:42)
--- NOTE | 2021-05-31 18:15 | ERPHSYRPT ---
- History of Present Illness Source: patient Exam Limitations: no limitations Patient Subjective Stated Complaint: Pt states "I had surgery on my neck in december and they put a cadaver bone in my neck and I feel like I have a tens unit on the back of my neck and up into my head." Triage Nursing Assessment: Pt presented alert and oriented X 3, skin pwd Pt ambulates with a slow gait, able to speak in clear full sentences pt in no apparent respiratory distress. Pt moaning . Timing/Duration: yesterday Method of Injury: unknown Quality: burning, other (Electrical shock sensation) Back Pain Location: C-spine Severity of Pain-Max: severe Severity of Pain-Current: severe Modifying Factors: Improves With: nothing Previous symptoms: same symptoms as today Hx Tetanus, Diphtheria Vaccination/Date Given: No Hx Influenza Vaccination/Date Given: Yes Hx Pneumococcal Vaccination/Date Given: No Immunizations Up to Date: Yes <KRISTIN FUENTES - Last Filed: 05/31/21 19:31> <MENDEZ DURAND - Last Filed: 05/31/21 20:39> - History of Present Illness Time Seen by Provider: 05/31/21 17:35 Physician History: Patient is a 45-year-old white female who presents with a complaint of neck pain. She reports in December she had surgery anterior approach to her cervical spine where she had additional plates and screws placed as well as some cadaver bone. She now reports she is having a shocking sensation when there is neck which goes up into her head causing an extreme migraine she has had some nausea and vomiting (KRISTIN FUENTES) Allergies/Adverse Reactions: ca Allergy (Severe, Verified 05/31/21 17:35) Swelling Penicillins Allergy (Verified 03/24/21 16:44) Rash propoxyphene HCl [From Darvon] Allergy (Verified 03/24/21 16:44) PASS OUT morphine Adverse Reaction (Verified 04/04/21 15:35) can not take pill form Home Medications: Erenumab-Aooe [Aimovig Autoinjector] 170 mg IJ UD 02/20/19 [History] Levetiracetam 750 mg PO BID 02/20/19 [History] Propranolol HCl 20 mg [Inderal 20 MG] 40 mg PO DAILY 02/20/19 [History] Gabapentin 300 mg PO BID 07/09/20 [History] Ubrogepant [Ubrelvy] 50 mg PO DAILY PRN 07/09/20 [History] Travel Risk - International Travel Have you traveled outside of the country in past 3 weeks: No - Coronavirus Screening Are you exhibiting any of the following symptoms?: No Close contact with a COVID-19 positive Pt in past 14-21 Days: No - Vaccine Status Have you recieved a 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: No <KRISTIN FUENTES Last Filed: 05/31/21 19:31> - Review of Systems Constitutional: No Fever, No Chills Eyes: No Symptoms Ears, Nose, & Throat: No Symptoms Respiratory: No Cough, No Dyspnea Cardiac: No Chest Pain, No Edema, No Syncope Abdominal/Gastrointestinal: No Abdominal Pain, No Nausea, No Vomiting, No Diarrhea Genitourinary Symptoms: No Dysuria Musculoskeletal: Neck Pain, No Back Pain Skin: No Symptoms, No Rash Neurological: No Dizziness, No Focal Weakness, No Sensory Changes Psychological: No Symptoms Endocrine: No Symptoms All Other Systems: Reviewed and Negative <KRISTIN FUENTES Last Filed: 05/31/21 19:31> - Past Medical History Pertinent Past Medical History: Yes Neurological History: Seizures ENT History: No Pertinent History Cardiac History: High Cholesterol Respiratory History: COPD Endocrine Medical History: Other Musculoskeletal History: Degenerative Disk Disease, Fibromyalgia GI Medical History: Esophageal Disorder, GERD History: No Pertinent History Psycho-Social History: Anxiety, Depression, Panic Disorder Female Reproductive Disorders: Abnormal Uterine Bleeding Other Medical History: Lupus, Neuropathy, DDD - Past Surgical History Past Surgical History: Yes Neuro Surgical History: No Pertinent History Cardiac: No Pertinent History Respiratory: No Pertinent History Gastrointestinal: No Pertinent History Genitourinary: No Pertinent History Musculoskeletal: Other Female Surgical History: Section, Tubal Ligation, Other Other Surgical History: ABLATION - TUBAL LIGATION. BILATERAL WRIST SURGERY. PLATE AND TWO SCREWS IN THE BACK OF NECK. 12/26/20 Surgery to back. cadaver bone in neck - Social History Smoking Status: Never smoker How long have you smoked: 30 years Exposure to second hand smoke: No Drug Use: none Patient Lives Alone: No - Female History Hx Last Menstrual Period: 17 years ago ablasion Hx Now: No <KRISTIN FUENTES Last Filed: 05/31/21 19:31> - Physical Exam General Appearance: mild distress, alert Eye Exam: PERRL/EOMI, eyes nml inspection Neck Exam: limited range of motion, midline tenderness, other (Semination the neck shows some decreased range of motion tenderness to palpation anywhere in the neck area a healed anterior surgical scar at the base of the neck carotid Dopplers are without bruits), No meningismus, No subcutaneous emphysema Respiratory Exam: normal breath sounds, lungs clear, No respiratory distress Cardiovascular Exam: regular rate/rhythm, normal heart sounds Gastrointestinal Exam: soft, No tenderness, No mass Extremity Exam: normal inspection, normal range of motion, No calf tenderness, No pedal edema Neurologic Exam: alert, 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, cooperative, food tray assembler II-XII nml as tested, normal mood/affect, nml station & gait, sensation nml, No motor deficits Skin Exam: normal color, warm, dry, No rash SpO2: 98 <KRISTIN FUENTES - Last Filed: 05/31/21 19:31> - Nursing Vital Signs Nursing Vital Signs: Initial Vital Signs Temperature 97.8 F 05/31/21 17:29 Pulse Rate 63 05/31/21 17:29 Respiratory Rate 22 05/31/21 17:29 Blood Pressure 116/66 05/31/21 17:29 O2 Sat by Pulse Oximetry 98 05/31/21 17:29 Pain Scale Pain Intensity 4 Ordered Tests: Active Orders 24 hr Category Date Time Status CERVICAL SPINE WO CONTRAST [CT] Stat Exams 05/31/21 17:30 Taken Medication Summary Discontinued Medications Generic Name Dose Route Start Last Admin Trade Name Manish PRN Reason Stop Dose Admin Ketorolac Tromethamine 30 mg 05/31/21 17:31 05/31/21 17:43 Toradol 30 Mg Injection IV 05/31/21 17:32 30 mg STAT ONE Administration Ketorolac Tromethamine Confirm 05/31/21 17:41 Toradol 30 Mg Injection Administered 05/31/21 17:42 Dose 30 mg .ROUTE .STK-MED ONE Ondansetron HCl 4 mg 05/31/21 17:31 05/31/21 17:43 Zofran Odt 4 Mg PO 05/31/21 17:32 4 mg STAT ONE Administration Ondansetron HCl Confirm 05/31/21 17:42 Zofran Odt 4 Mg Administered 05/31/21 17:43 Dose 4 mg .ROUTE .STK-MED ONE Orphenadrine Citrate 60 mg 05/31/21 17:32 05/31/21 17:44 Norflex 60 Mg/2 Ml IM 05/31/21 17:33 60 mg STAT ONE Administration Orphenadrine Citrate Confirm 05/31/21 17:42 Norflex 60 Mg/2 Ml Administered 05/31/21 17:43 Dose 60 mg .ROUTE .STK-MED ONE - Progress Progress: unchanged, pain not gone completely, re-examined Counseled pt/family regarding: diagnosis, need for follow-up, rad results <MENDEZ DURAND - Last Filed: 05/31/21 20:39> - Progress Progress Note: 05/31/21 20:36 Scan of the cervical spine without contrast shows the recent surgery performed on the patient's cervical spine is intact. There is stable C6-7 fusion everything else regarding the cervical spine is negative for any acute problems (MENDEZ DURAND) <KRISTIN FUENTES - Last Filed: 05/31/21 19:31> - Departure Departure Disposition: Home Critical Care Time: No <MENDEZ DURAND - Last Filed: 05/31/21 20:39> - Departure Clinical Impression: Cervical spine pain Condition: Stable Referrals: DOCTOR,NO FAMILY [Primary Care Provider] - Additional Instructions: Continue all your medication as prescribed. Follow-up with your's spinal surg eamon and your primary care physician for further pain management. Prescriptions: Hydrocodone/APAP 5/325 [[place] 5/325 mg] 1 each PO Q8H PRN PRN #8 tablet MDD 3 PRN Reason: Pain
[2021-05-31 20:34] VITALS: BP 107/65; PULSE 67; O2SAT 97
--- NOTE | 2021-05-31 21:04 | XRAY ---
Indication: Neck pain. Multiple contiguous axial images obtained through the cervical spine. Sagittal and coronal reformatted images obtained. Comparison: None. There is cervical radiograph January 19, 2019. Axial images negative for acute fracture, suspicious bony lesions, or spinal canal stenosis. Again C6-C7 fusion surgery with intact anterior fixation plate/screws/intervertebral spacer. New C4-C5 fusion surgery with intact anterior fixation plate/screws/spacer. Sagittal and coronal reformatted images again demonstrates cervical lordotic straightening, positional versus paraspinal spasm. Vertebral body heights/disc spaces maintained. No acute compression fracture, subluxation, or jumped facet. Normal appearing craniocervical junction. Visualized noncontrasted soft tissues including base of the brain are unremarkable. Minimal right apical subpleural cystic changes. Impression: 1. C4-C5 and C6-C7 fusion surgery with intact hardware. 2. Cervical lordotic straightening, positional versus paraspinal spasm. 3. Remaining CT cervical spine is negative.
[2021-05-31] MEDS ORDERED: PERCOCET TABLET 5/325MG PO STA (21:07)
[2021-05-31] MEDS ORDERED: PERCOCET TABLET 5/325MG ONE (21:10)
== END 2021-05-31 21:16 | disposition home or self-care (01) ==
LOC: ED 17:23
DX: M54.2 Cervicalgia (principal)
CPT/HCPCS: 72125; 96372; 99284; J1885; J2360; Q0162; A9270-GY

== ENCOUNTER 2021-08-02 11:32 | Emergency (ER) | payer OTHER ==
--- NOTE | 2021-08-02 11:39 | ERPHSYRPT ---
- History of Present Illness Time Seen by Provider: 08/02/21 11:39 Source: patient Exam Limitations: no limitations Physician History: This is a 45-year-old white female who has a history of fibromyalgia, DJD, COPD, anxiety, neuropathy, depression, panic disorder, and hypertension who fell prior to arrival and complains of left wrist pain, left hip pain and toe pain of her left foot. Patient was running to open a door at a local market and hit the curb tripping falling onto her outstretched arm. She did not hit her head. She has no headache or head injury complaints. She has no neck complaints. There was no loss of consciousness. Occurred: just prior to arrival Injuries/Pain Location: upper extremity, lower extremity (Left wrist left hip and) Loss of Consciousness: no loss of consciousness Quality: aching, burning Severity of Pain-Max: mild (To moderate) Severity of Pain-Current: mild (To moderate) Associated Symptoms (Fall): extremity injury Allergies/Adverse Reactions: ca Allergy (Severe, Verified 08/02/21 11:43) Swelling Penicillins Allergy (Verified 08/02/21 11:43) Rash propoxyphene HCl [From Darvon] Allergy (Verified 08/02/21 11:43) PASS OUT morphine Adverse Reaction (Verified 08/02/21 11:43) can not take pill form Home Medications: Erenumab-Aooe [Aimovig Autoinjector] 170 mg IJ UD 02/20/19 [History] Levetiracetam 750 mg PO BID 02/20/19 [History] Propranolol HCl 20 mg [Inderal 20 MG] 40 mg PO DAILY 02/20/19 [History] Gabapentin 300 mg PO BID 07/09/20 [History] Ubrogepant [Ubrelvy] 50 mg PO DAILY PRN 07/09/20 [History] Hx Tetanus, Diphtheria Vaccination/Date Given: No Hx Influenza Vaccination/Date Given: Yes Hx Pneumococcal Vaccination/Date Given: No Travel Risk - International Travel Have you traveled outside of the country in past 3 weeks: No - Coronavirus Screening Are you exhibiting any of the following symptoms?: No Close contact with a COVID-19 positive Pt in past 14-21 Days: No - Vaccine Status Have you recieved a 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: No - Review of Systems Constitutional: No Symptoms Eyes: No Symptoms Ears, Nose, & Throat: No Symptoms Respiratory: No Symptoms Cardiac: No Symptoms Abdominal/Gastrointestinal: No Symptoms Genitourinary Symptoms: No Symptoms Musculoskeletal: Fall Skin: No Symptoms Neurological: No Symptoms Psychological: No Symptoms Endocrine: No Symptoms Hematologic/Lymphatic: No Symptoms Immunological/Allergic: No Symptoms All Other Systems: Reviewed and Negative - Past Medical History Pertinent Past Medical History: Yes Neurological History: Seizures ENT History: No Pertinent History Cardiac History: High Cholesterol Respiratory History: COPD Endocrine Medical History: Other Musculoskeletal History: Degenerative Disk Disease, Fibromyalgia GI Medical History: Esophageal Disorder, GERD History: No Pertinent History Psycho-Social History: Anxiety, Depression, Panic Disorder Female Reproductive Disorders: Abnormal Uterine Bleeding Other Medical History: Lupus, Neuropathy, DDD - Past Surgical History Past Surgical History: Yes Neuro Surgical History: No Pertinent History Cardiac: No Pertinent History Respiratory: No Pertinent History Gastrointestinal: No Pertinent History Genitourinary: No Pertinent History Musculoskeletal: Other Female Surgical History: Section, Tubal Ligation, Other Other Surgical History: ABLATION - TUBAL LIGATION. BILATERAL WRIST SURGERY. PLATE AND TWO SCREWS IN THE BACK OF NECK. 12/26/20 Surgery to back. cadaver bone in neck - Social History Smoking Status: Never smoker How long have you smoked: 30 years Exposure to second hand smoke: No Drug Use: none Patient Lives Alone: No - Nursing Vital Signs Nursing Vital Signs: Initial Vital Signs Temperature 98.0 F 08/02/21 11:44 Pulse Rate 84 08/02/21 11:44 Respiratory Rate 18 08/02/21 11:44 Blood Pressure 161/76 08/02/21 11:44 O2 Sat by Pulse Oximetry 98 08/02/21 11:44 Pain Scale Pain Intensity 6 - Taylor Coma Score Best Eye Response ([place]): (4) open spontaneously Best Verbal Response ([place]): (5) oriented Best Motor Response ([place]): (6) obeys commands [place] Total: 15 - Physical Exam General Appearance: no apparent distress, alert, anxiety Head Injury: no evidence of injury Eye Exam: PERRL/EOMI, eyes nml inspection ENT Exam: airway nml, nml ext.inspection, No evidence of ENT injury, No dental injury Neck Exam: supple, trachea midline, full range of motion, normal alignment, normal inspection Respiratory/Chest Exam: No chest tenderness, No respiratory distress Gastrointestinal Exam: No tenderness Rectal Exam: not done Back Exam: normal inspection, normal range of motion, No CVA tenderness, No vertebral tenderness Extremity Exam: normal inspection, normal range of motion, pelvis stable, tenderness (Left wrist left hip left foottoes) Neurologic Exam: alert, 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, cooperative, manager imaging II-XII nml as tested, normal mood/affect, nml cerebellar function, nml station & gait, sensation nml Skin Exam: normal color, warm, dry SpO2 Interpretation: normal O2 Delivery: Room Air - Course Nursing assessment & vital signs reviewed: Yes Ordered Tests: Active Orders 24 hr Category Date Time Status FOOT (MINIMUM 3 VIEWS) Stat Exams 08/02/21 12:29 Completed HIP UNI (2V) INCL PEL IF DONE Stat Exams 08/02/21 12:05 Completed WRIST (MIN 3 VIEWS) Stat Exams 08/02/21 12:05 Completed Medication Summary Discontinued Medications Generic Name Dose Route Start Last Admin Trade Name Freq PRN Reason Stop Dose Admin Acetaminophen 650 mg 08/02/21 13:27 Acetaminophen 325 Mg Tablet PO 08/02/21 13:28 STAT STA - Progress Progress: pain not gone completely Progress Note: 08/02/21 13:28 X-ray of left wrist shows no acute fracture or dislocation. X-ray of left hip shows no acute fracture dislocation. X-ray of left foot shows no acute fracture or dislocations. Counseled pt/family regarding: lab results, diagnosis, need for follow-up, rad results - Departure Departure Disposition: Home Clinical Impression: Fall, Contusion Condition: Stable Critical Care Time: No Referrals: DOCTOR,NO FAMILY [Primary Care Provider] - Additional Instructions: Follow-up with your primary care physician for further management of any persistent symptoms.
--- NOTE | 2021-08-02 12:41 | XRAY ---
Indication: Status post fall. Comparison: None AP pelvis and 2 view left hip demonstrates normal bones, articulation, and soft tissues.
--- NOTE | 2021-08-02 12:43 | XRAY ---
Indication: Status post fall. Comparison: April 09, 2020 3 nonweightbearing views left foot demonstrates stable tiny heel spurs. No new/acute bony, articular, or soft tissue abnormalities.
--- NOTE | 2021-08-02 12:52 | XRAY ---
Indication: Status post fall. Comparison: None 3 view left wrist demonstrates tiny distal radius bone island. No other bony, articular, or soft tissue abnormalities.
[2021-08-02] MEDS ORDERED: TYLENOL 325 MG PO STA (13:27)
[2021-08-02] MEDS ORDERED: TYLENOL 325 MG ONE (13:38)
[2021-08-02 13:42] VITALS: BP 123/89; PULSE 89; O2SAT 100
== END 2021-08-02 13:55 | disposition home or self-care (01) ==
LOC: ED 11:32
DX: T14.8XXA Other injury of unspecified body region, initial encounter (principal); W01.198A Fall on same level from slipping, tripping and stumbling with subsequent striking against other object, initial encounter; Y93.01 Activity, walking, marching and hiking; Y92.512 Supermarket, store or market as the place of occurrence of the external cause; M79.7 Fibromyalgia; J44.9 Chronic obstructive pulmonary disease, unspecified; F41.9 Anxiety disorder, unspecified; M25.532 Pain in left wrist; M25.552 Pain in left hip
CPT/HCPCS: 73110; 73502; 73630; 99283; A9270-GY

== ENCOUNTER 2021-09-12 12:13 | Emergency (ER) | payer OTHER ==
[2021-09-12] MEDS ORDERED: MORPHINE SULFATE 4 MG INJ IV ONE (12:34)
[2021-09-12] MEDS ORDERED: Sodium Chloride 0.9% 1000 ML 1,000 ML IV STA (12:34)
[2021-09-12] MEDS ORDERED: Zofran 4 MG/2 ML VIAL IV ONE (12:34)
[2021-09-12] MEDS ORDERED: MORPHINE SULFATE 4 MG INJ ONE (12:45)
[2021-09-12] MEDS ORDERED: Sodium Chloride 0.9% 1000 ML 1,000 ML ONE (12:45)
[2021-09-12] MEDS ORDERED: Zofran 4 MG/2 ML VIAL ONE (12:45)
[2021-09-12 12:49] LABS: Absolute Neutrophil Ct (ANC) 8.87 (1.4-6.9); BASOPHIL % 0.3 % (0.0-0.4); Basophil (Absolute #) 0.04 (0-0.4); Eosinophil % 2.1 % (0.00-5.0); Eosinophil (Absolute #) 0.27 (0-0.5); Hematocrit 41.5 % (35-47); Hemoglobin 13.6 gm/dl (12.0-16.0); Lymphocyte (Absolute #) 2.74 (1.0-4.6); Lymphocytes % 21.5 % (24.0-44.0); Mean Cell Volume 98.3 fl (78-100); Mean Corpuscular Hemoglobin 32.2 pg (26-32); Mean Corpuscular Hgb Concent. 32.8 g/dl (32-36); Monocyte (Absolute #) 0.81 (0.0-1.3); Monocytes % 6.4 % (0.0-12.0); Neutrophil % 69.7 % (36.0-66.0); Platelet Count 401 K/mm3 (150-450); Red Blood Count 4.22 M/mm3 (4.1-5.4); Red Cell Distribution Width 12.9 % (11.5-14.0); White Blood Count 12.7 K/mm3 (4.0-10.5)
--- NOTE | 2021-09-12 13:11 | ERPHSYRPT ---
- History of Present Illness Time Seen by Provider: 09/12/21 12:24 Historian: patient Exam Limitations: no limitations Patient Subjective Stated Complaint: pt co paian to lower abd with losse stools x 3, nausea no vomiting Triage Nursing Assessment: pt alert, walked in, resp easy, skin w/d/p,. face mask in place, abd soft Physician History: 45 years old female presented in the ER with chief complaint of right lower ab dominal cramping since morning with worsening pain for almost an hour moderate to severe without any significant aggravating or relieving factors and associated multiple episodes of loose stool. Denies any vomiting or nausea. No fever or chills reported. Timing/Duration: today, constant, gradual onset, worse Activities at Onset: rest Quality: cramping, sharpness Abdominal Pain Onset Location: RLQ, periumbilical, suprapubic Pain Radiation: no radiation Severity of Pain-Max: moderate Severity of Pain-Current: moderate Modifying Factors: Worsens With: movement, palpation Associated Symptoms: diarrhea Previous symptoms: recently seen Allergies/Adverse Reactions: ca Allergy (Severe, Verified 09/12/21 12:19) Swelling Penicillins Allergy (Verified 09/12/21 12:19) Rash propoxyphene HCl [From Darvon] Allergy (Verified 09/12/21 12:19) PASS OUT morphine Adverse Reaction (Verified 09/12/21 12:19) can not take pill form Home Medications: Erenumab-Aooe [Aimovig Autoinjector] 170 mg IJ UD 02/20/19 [History] Levetiracetam 750 mg PO BID 02/20/19 [History] Propranolol HCl 20 mg [Inderal 20 MG] 40 mg PO DAILY 02/20/19 [History] Gabapentin 300 mg PO BID 07/09/20 [History] Ubrogepant [Ubrelvy] 50 mg PO DAILY PRN 07/09/20 [History] Hx Tetanus, Diphtheria Vaccination/Date Given: No Hx Influenza Vaccination/Date Given: Yes Hx Pneumococcal Vaccination/Date Given: No Immunizations Up to Date: Yes Travel Risk - International Travel Have you traveled outside of the country in past 3 weeks: No - Coronavirus Screening Are you exhibiting any of the following symptoms?: No Close contact with a COVID-19 positive Pt in past 14-21 Days: No - Vaccine Status Have you recieved a 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: Yes [employer]: Pfizer - Vaccination Dates Date of 2cond Vaccination (if applicable): ? - Review of Systems Constitutional: No Symptoms Eyes: No Symptoms Ears, Nose, & Throat: No Symptoms Respiratory: No Symptoms Cardiac: No Symptoms Abdominal/Gastrointestinal: Abdominal Pain, Diarrhea Genitourinary Symptoms: No Symptoms Musculoskeletal: No Symptoms Skin: Skin Lesions Neurological: No Symptoms Psychological: No Symptoms Endocrine: No Symptoms Hematologic/Lymphatic: No Symptoms Immunological/Allergic: No Symptoms - Past Medical History Pertinent Past Medical History: Yes Neurological History: Seizures ENT History: No Pertinent History Cardiac History: High Cholesterol Respiratory History: COPD Endocrine Medical History: Other Musculoskeletal History: Degenerative Disk Disease, Fibromyalgia GI Medical History: Esophageal Disorder, GERD History: No Pertinent History Psycho-Social History: Anxiety, Depression, Panic Disorder Female Reproductive Disorders: Abnormal Uterine Bleeding Other Medical History: Lupus, Neuropathy, DDD - Past Surgical History Past Surgical History: Yes Neuro Surgical History: No Pertinent History Cardiac: No Pertinent History Respiratory: No Pertinent History Gastrointestinal: No Pertinent History Genitourinary: No Pertinent History Musculoskeletal: Other Female Surgical History: Section, Tubal Ligation, Other Other Surgical History: ABLATION - TUBAL LIGATION. BILATERAL WRIST SURGERY. PLATE AND TWO SCREWS IN THE BACK OF NECK. 12/26/20 Surgery to back. cadaver bone in neck - Social History Smoking Status: Current every day smoker How long have you smoked: 30 years Exposure to second hand smoke: No Drug Use: none Patient Lives Alone: No - Female History Hx Last Menstrual Period: post Hx Now: (UNKN) - Nursing Vital Signs Nursing Vital Signs: Initial Vital Signs Temperature 97.3 F 09/12/21 12:14 Pulse Rate 74 09/12/21 12:14 Respiratory Rate 18 09/12/21 12:14 Blood Pressure 109/76 09/12/21 12:14 O2 Sat by Pulse Oximetry 96 09/12/21 12:14 Pain Scale Pain Intensity 6 - Physical Exam General Appearance: no apparent distress, alert Eye Exam: PERRL/EOMI, eyes nml inspection Ears, Nose, Throat Exam: normal ENT inspection, pharynx normal Neck Exam: normal inspection, supple, full range of motion Respiratory Exam: normal breath sounds, lungs clear Cardiovascular Exam: regular rate/rhythm, normal heart sounds Gastrointestinal/Abdomen Exam: soft, normal bowel sounds, tenderness (Right lower quadrant. Suprapubic and left lower quadrant tenderness) Extremity Exam: normal inspection, normal range of motion, pelvis stable Neurologic Exam: alert, 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, cooperative Skin Exam: normal color SpO2 Interpretation: normal SpO2: 96 O2 Delivery: Room Air Ordered Tests: Active Orders 24 hr Category Date Time Status IV Insertion STAT Care 09/12/21 12:34 Active NPO (ED) STAT Care 09/12/21 12:34 Active ABDOMEN AND PELVIS W CONTRAST [CT] Stat Exams 09/12/21 12:35 Taken CBC W DIFF Stat Lab 09/12/21 12:30 Completed CMP Stat Lab 09/12/21 12:30 Completed CULTURE,URINE Stat Lab 09/12/21 12:43 Received LIPASE Stat Lab 09/12/21 12:30 Completed UA W/RFX UR CULTURE Stat Lab 09/12/21 12:43 Completed Medication Summary Discontinued Medications Generic Name Dose Route Start Last Admin Trade Name Freq PRN Reason Stop Dose Admin Acetaminophen 650 mg 09/12/21 15:17 09/12/21 15:20 Acetaminophen 325 Mg Tablet PO 09/12/21 15:18 650 mg STAT STA Administration Acetaminophen Confirm 09/12/21 15:18 Acetaminophen 325 Mg Tablet Administered 09/12/21 15:19 Dose 650 mg .ROUTE .STK-MED ONE Sodium Chloride 1,000 mls @ 999 mls/hr 09/12/21 12:34 09/12/21 13:52 Sodium Chloride 0.9% 1000 Ml IV 09/12/21 13:34 Infused .Q1H1M STA Infusion Sodium Chloride Confirm 09/12/21 12:45 Sodium Chloride 0.9% 1000 Ml Administered 09/12/21 12:46 Dose 1,000 mls @ ud .ROUTE .STK-MED ONE Morphine Sulfate 4 mg 09/12/21 12:34 09/12/21 12:49 Morphine Sulfate 4 Mg/Ml Injection IV 09/12/21 12:35 4 mg STAT ONE Administration Morphine Sulfate Confirm 09/12/21 12:45 Morphine Sulfate 4 Mg/Ml Injection Administered 09/12/21 12:46 Dose 4 mg .ROUTE .STK-MED ONE Ondansetron HCl 4 mg 09/12/21 12:34 09/12/21 12:49 Ondansetron Hcl 4 Mg/2 Ml Vial IV 09/12/21 12:35 4 mg STAT ONE Administration Ondansetron HCl Confirm 09/12/21 12:45 Ondansetron Hcl 4 Mg/2 Ml Vial Administered 09/12/21 12:46 Dose 4 mg .ROUTE .STK-MED ONE Lab/Rad Data: Laboratory Result Diagrams 09/12/21 12:30 09/12/21 12:30 Laboratory Results 09/12/21 09/12/21 09/12/21 Range/Units 12:43 12:30 12:30 WBC 12.7 H (4.0-10.5) K/mm3 RBC 4.22 (4.1-5.4) M/mm3 Hgb 13.6 (12.0-16.0) gm/dl Hct 41.5 (35-47) % MCV 98.3 (78-100) fl MCH 32.2 H (26-32) pg MCHC 32.8 (32-36) g/dl RDW 12.9 (11.5-14.0) % Plt Count 401 (150-450) K/mm3 MPV 10.0 (7.5-11.0) fl Gran % 69.7 H (36.0-66.0) % Eos # (Auto) 0.27 (0-0.5) Absolute Lymphs (auto) 2.74 (1.0-4.6) Absolute Monos (auto) 0.81 (0.0-1.3) Lymphocytes % 21.5 L (24.0-44.0) % Monocytes % 6.4 (0.0-12.0) % Eosinophils % 2.1 (0.00-5.0) % Basophils % 0.3 (0.0-0.4) % Absolute Granulocytes 8.87 H (1.4-6.9) Basophils # 0.04 (0-0.4) Sodium 140 (137-145) mmol/L Potassium 4.1 (3.5-5.1) mmol/L Chloride 107 (98-107) mmol/L Carbon Dioxide 22 (22-30) mmol/L Anion Gap 16.0 H (5-15) MEQ/L BUN 15 (7-17) mg/dL Creatinine 0.64 (0.52-1.04) mg/dL Estimated GFR > 60.0 ML/MIN Glucose 114 H (74-106) mg/dL Calcium 9.2 (8.4-10.2) mg/dL Total Bilirubin 0.50 (0.2-1.3) mg/dL AST 20 (14-36) U/L ALT 14 (0-35) U/L Alkaline Phosphatase 59 (38-126) U/L Serum Total Protein 7.3 (6.3-8.2) g/dL Albumin 4.4 (3.5-5.0) g/dL Lipase 153 (23-300) U/L Urine Color YELLOW (YELLOW) Urine Appearance CLOUDY (CLEAR) Urine pH 5.0 (5-6) Ur Specific [place] 1.024 (1.005-1.025) Urine Protein NEGATIVE (Negative) Urine Ketones TRACE (NEGATIVE) Urine Blood SMALL (0-5) Ross/ul Urine Nitrite NEGATIVE (NEGATIVE) Urine Bilirubin NEGATIVE (NEGATIVE) Urine Urobilinogen 2 (0-1) mg/dL Ur Leukocyte Esterase SMALL (NEGATIVE) Urine WBC (Auto) 3-5 (0-5) /HPF Urine RBC (Auto) 3-5 (0-2) /HPF U Epithel Cells (Auto) RARE (FEW) /HPF Urine Bacteria (Auto) NONE (NEGATIVE) /HPF Urine Mucus (Auto) SLIGHT (NEGATIVE) /HPF Urine Culture Reflexed YES (NO) Urine Glucose NEGATIVE (NEGATIVE) mg/dL - Progress Progress: improved Progress Note: 09/12/21 15:18 She is given fluid bolus along with symptomatic treatment for pain, on reevaluation feeling much better no peritoneal signs. Minimal elevated white count of 12, grossly unremarkable chemistries and CT negative for any acute finding except for some finding consistent with diarrheal disease. I believe patient has viral gastroenteritis, recommended supportive care and outpatient follow-up. Discussed signs symptoms of worsening needing return to ER which she seems understanding. Counseled pt/family regarding: lab results, diagnosis, need for follow-up, rad results - Departure Departure Disposition: Home Clinical Impression: Gastroenteritis Condition: Stable Critical Care Time: No Referrals: DOCTOR,NO FAMILY [NON-STAFF PHY W/O PRIVILEGES] - Follow up/PCP as directed NITA QUACH MD [ACTIVE STAFF] - Follow Up with PCP/3 days Instructions: Acute Abdomen (Belly Pain), Adult (DC), Viral Gastroenteritis, Adult (DC) Additional Instructions: Take Tylenol as needed. Drink plenty of fluids to keep yourself well-hydrated. Return to ER for intractable abdominal pain/diarrhea/fever chills etc.
[2021-09-12 13:21] LABS: Appearance CLOUDY (CLEAR); Bilirubin NEGATIVE (NEGATIVE); Blood SMALL Ery/ul (0-5); Epithelial Cells RARE /HPF (FEW); Glucose NEGATIVE (NEGATIVE); Ketones TRACE (NEGATIVE); Leukocyte Esterase SMALL (NEGATIVE); Mucus SLIGHT /HPF (NEGATIVE); Nitrite NEGATIVE (NEGATIVE); Protein,Urine Dip NEGATIVE (Negative); Specific Gravity 1.024 (1.005-1.025); Urobilinogen 2 mg/dL (0-1)
[2021-09-12 13:27] LABS: ALBUMIN 4.4 g/dL (3.5-5.0); ALKALINE PHOSPHATASE 59 U/L (38-126); BLOOD UREA NITROGEN 15 mg/dL (7-17); CHLORIDE 107 mmol/L (98-107); Calcium 9.2 mg/dL (8.4-10.2); Carbon Dioxide 22 mmol/L (22-30); Creatinine 1 0.64 mg/dL (0.52-1.04); EST GLOMERULAR FILTRATION RATE > 60.0 ML/MIN; Glucose 114 mg/dL (74-106); LIPASE 153 U/L (23-300); Potassium 4.1 mmol/L (3.5-5.1); SGOT/AST 20 U/L (14-36); SGPT/ALT 14 U/L (0-35); SODIUM 140 mmol/L (137-145); Total Protein 7.3 g/dL (6.3-8.2)
[2021-09-12] MEDS ORDERED: TYLENOL 325 MG PO STA (15:17)
[2021-09-12] MEDS ORDERED: TYLENOL 325 MG ONE (15:18)
[2021-09-12 15:27] VITALS: BP 120/80; PULSE 63; O2SAT 98
--- NOTE | 2021-09-12 19:13 | XRAY ---
Indication: Right lower quadrant pain. Multiple contiguous axial images obtained through the abdomen and pelvis using 80 cc of Isovue-370 contrast. Comparison: December 31, 2020. Lung bases demonstrates minimal dependent atelectasis. Stable 5 mm right base noncalcified nodule dating back to November 14, 2018 and favored to be benign, probably granulomatous. No infiltrate or effusion. Heart is not enlarged. Noncontrasted stomach and bowel loops nonobstructed. Several pelvic small bowel loops are now mildly fluid distended with some fluid leveling, unchanged on delayed imaging, ileus versus enteritis. Normal appendix. No free fluid/air. Stable 2.5 cm left upper pole exophytic renal cyst and tiny splenic calcified granulomas. Remaining liver, gallbladder, pancreas, spleen, adrenal glands, kidneys, ureters, bladder, uterus, and aorta are unremarkable. No pathologic retroperitoneal lymphadenopathy. Osseous structures intact. Impression: 1. Mild fluid distended pelvic small bowel loops with fluid leveling, ileus versus enteritis. 2. Stable left renal cyst and old granulomatous disease. 3. Remaining CT abdomen/pelvis with contrast exam is negative. Comment: Preliminary interpretation made by [facility]. No critical discrepancy.
== END 2021-09-12 15:35 | disposition home or self-care (01) ==
LOC: ED 12:13
DX: K52.9 Noninfective gastroenteritis and colitis, unspecified (principal); R19.7 Diarrhea, unspecified; E78.5 Hyperlipidemia, unspecified; Z72.0 Tobacco use
CPT/HCPCS: 36000; 36415; 74177; 80053; 81001; 83690; 85025; 87086; 96360; 96374; 96375; 99284; J2270; J2405; A9270-GY

== ENCOUNTER 2021-12-29 14:11 | Emergency (ER) | payer OTHER ==
[2021-12-29] MEDS ORDERED: Keppra 500 MG/5 ML*** 1,500 MG in D5w 100ML Mini Bag 100 ML 100 ML IV ONE (14:29)
--- NOTE | 2021-12-29 14:40 | ERPHSYRPT ---
- History of Present Illness Time Seen by Provider: 12/29/21 14:30 Source: patient, EMS Exam Limitations: no limitations Physician History: The patient is a 46-year-old female with a past medical x-ray significant for epilepsy, pseudoseizures, PTSD, anxiety, depression who presents with a chief complaint of a seizure. Of note, the patient reportedly had 4 seizures today. This is why she was at home. EMS was called and witnessed what they believed to be seizure activity and administered IM Versed, specifically 5 mg and transported the patient to the emergency department. The patient reportedly takes Keppra 1000 mg twice a day and was recently taken off her gabapentin and started on Ativan yesterday by her PCP. She also recently started Lyrica. She states she has been compliant with her medications. There is no reported fever, chills. Of note, the patient seemed to be having what appeared to be seizure-like activity shortly after arrival to the emergency department. I witnessed this activity but it did not appear consistent with convincing tonic-clonic activity and more rolling around on the bed and breathing heavy. I was able to put my hand on the patient's shoulder and ask her to stop which she did and eventually she open her eyes and answered all questions appropriately with no post-ictal period. Her neurologist is located in [place] as well as her PCP. Her neurologist is Dr. Barney. Allergies/Adverse Reactions: ca Allergy (Severe, Verified 12/29/21 14:15) Swelling Penicillins Allergy (Verified 12/29/21 14:15) Rash propoxyphene HCl [From Darvon] Allergy (Verified 12/29/21 14:15) PASS OUT morphine Adverse Reaction (Verified 12/29/21 14:15) can not take pill form Home Medications: Erenumab-Aooe [Aimovig Autoinjector] 170 mg IJ UD 02/20/19 [History] Propranolol HCl 20 mg [Inderal 20 MG] 40 mg PO DAILY 02/20/19 [History] levETIRAcetam [Levetiracetam] 1,000 mg PO BID 02/20/19 [History] Ubrogepant [Ubrelvy] 50 mg PO DAILY PRN 07/09/20 [History] Lorazepam 0.5 mg [Ativan 0.5 MG] 1 tab PO TID PRN 12/29/21 [History] Pregabalin [Lyrica 150Mg] 120 mg PO BID 12/29/21 [History] Hx Tetanus, Diphtheria Vaccination/Date Given: No Hx Influenza Vaccination/Date Given: Yes Hx Pneumococcal Vaccination/Date Given: No Travel Risk - Vaccine Status Have you recieved a 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: Yes 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 - Review of Systems Neurological: Other (Seizures) All Other Systems: Reviewed and Negative - Past Medical History Pertinent Past Medical History: Yes Neurological History: Seizures ENT History: No Pertinent History Cardiac History: High Cholesterol Respiratory History: COPD Endocrine Medical History: Other Musculoskeletal History: Degenerative Disk Disease, Fibromyalgia GI Medical History: Esophageal Disorder, GERD History: No Pertinent History Psycho-Social History: Anxiety, Depression, Panic Disorder Female Reproductive Disorders: Abnormal Uterine Bleeding Other Medical History: Lupus, Neuropathy, DDD - Past Surgical History Past Surgical History: Yes Neuro Surgical History: No Pertinent History Cardiac: No Pertinent History Respiratory: No Pertinent History Gastrointestinal: No Pertinent History Genitourinary: No Pertinent History Musculoskeletal: Other Female Surgical History: Section, Tubal Ligation, Other Other Surgical History: ABLATION - TUBAL LIGATION. BILATERAL WRIST SURGERY. PLATE AND TWO SCREWS IN THE BACK OF NECK. 12/26/20 Surgery to back. cadaver bone in neck - Social History Smoking Status: Current every day smoker How long have you smoked: 30 years Exposure to second hand smoke: No Drug Use: none Patient Lives Alone: No - Female History Hx Now: No - Nursing Vital Signs Nursing Vital Signs: Initial Vital Signs Temperature 97.6 F 12/29/21 14:28 Pulse Rate 74 12/29/21 14:28 Respiratory Rate 18 12/29/21 14:28 Blood Pressure 125/78 12/29/21 14:28 O2 Sat by Pulse Oximetry 97 12/29/21 14:28 Pain Scale Pain Intensity 0 - Physical Exam General Appearance: no apparent distress, alert Eye Exam: PERRL/EOMI, No EOM palsy/anisocoria Ears, Nose, Throat Exam: other (No tongue trauma) Neck Exam: normal inspection Respiratory Exam: normal breath sounds Cardiovascular Exam: regular rate/rhythm, capillary refill <2 sec Gastrointestinal/Abdomen Exam: soft Pelvic Exam: not done Rectal Exam: deferred Back Exam: normal inspection Extremity Exam: normal inspection Neurologic Exam: alert, 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, cooperative, sensation nml, No motor deficits, No sensory deficit, No intoxicated appearance, No motor weakness, No slurred speech Skin Exam: normal color, warm, dry, No rash, No petechiae SpO2 Interpretation: normal O2 Delivery: Room Air - Course Nursing assessment & vital signs reviewed: Yes EKG Interpreted by Me: RATE, NORMAL AXIS, Left [place] Neck Deviation, NORMAL INTERVALS (LA interval 185 ms, QRS duration 99 ms, QT/QTc 382/443, No evidence of pre- excitaiton, Brugada, or prolonged QT) - CT Exams Head CT Interpretation: Negative, Tele-radiologist Report (I personally reviewed the HCT and agree with tele-radiolgist report) Ordered Tests: Active Orders 24 hr Category Date Time Status Art Education Professor STAT Care 12/29/21 14:24 Completed EKG-ER Only STAT Care 12/29/21 14:40 Completed IV Insertion STAT Care 12/29/21 14:23 Completed Seizure Precautions -SCCHED STAT Care 12/29/21 14:23 Completed HEAD WITHOUT CONTRAST [CT] Stat Exams 12/29/21 14:30 Taken BMP Stat Lab 12/29/21 14:37 Completed CBC W DIFF Stat Lab 12/29/21 14:37 Completed CULTURE,URINE Stat Lab 12/29/21 14:24 Ordered HCG,QUALITATIVE URINE Stat Lab 12/29/21 14:35 Completed Hepatic Function Panel Stat Lab 12/29/21 14:37 Completed Lactic Acid Stat Lab 12/29/21 14:23 Completed MAG [MAGNESIUM] Stat Lab 12/29/21 14:58 Completed PHOSPHOROUS Stat Lab 12/29/21 14:58 Completed UA W/RFX UR CULTURE Stat Lab 12/29/21 14:35 Completed Urine Triage Profile Stat Lab 12/29/21 14:35 Completed Medication Summary Discontinued Medications Generic Name Dose Route Start Last Admin Trade Name Freq PRN Reason Stop Dose Admin Levetiracetam 1,500 mg/ 115 mls @ 220 mls/hr 12/29/21 14:29 Dextrose IV 12/29/21 15:00 STAT ONE Lab/Rad Data: Laboratory Result Diagrams 12/29/21 14:37 12/29/21 14:37 Laboratory Results 12/29/21 12/29/21 12/29/21 Range/Units 14:58 14:58 14:37 WBC (4.0-10.5) K/mm3 RBC (4.1-5.4) M/mm3 Hgb (12.0-16.0) gm/dl Hct (35-47) % MCV (78-100) fl MCH (26-32) pg MCHC (32-36) g/dl RDW (11.5-14.0) % Plt Count (150-450) K/mm3 MPV (7.5-11.0) fl Gran % (36.0-66.0) % Eos # (Auto) (0-0.5) Absolute Lymphs (auto) (1.0-4.6) Absolute Monos (auto) (0.0-1.3) Lymphocytes % (24.0-44.0) % Monocytes % (0.0-12.0) % Eosinophils % (0.00-5.0) % Basophils % (0.0-0.4) % Absolute Granulocytes (1.4-6.9) Basophils # (0-0.4) Sodium 141 (137-145) mmol/L Potassium 3.9 (3.5-5.1) mmol/L Chloride 108 H (98-107) mmol/L Carbon Dioxide 29 (22-30) mmol/L Anion Gap 7.9 (5-15) MEQ/L BUN 15 (7-17) mg/dL Creatinine 0.74 (0.52-1.04) mg/dL Estimated GFR > 60.0 ML/MIN Glucose 102 (74-106) mg/dL Lactic Acid (0.4-2.0) Calcium 9.2 (8.4-10.2) mg/dL Phosphorus 4.6 H (2.5-4.5) mg/dL Magnesium 1.8 (1.6-2.3) mg/dL Total Bilirubin 0.30 (0.2-1.3) mg/dL Direct Bilirubin 0.2 (0.0-0.4) mg/dL AST 19 (14-36) U/L ALT 12 (0-35) U/L Alkaline Phosphatase 62 (38-126) U/L Serum Total Protein 6.7 (6.3-8.2) g/dL Albumin 3.8 (3.5-5.0) g/dL Urine Color (YELLOW) Urine Appearance (CLEAR) Urine pH (5-6) Ur Specific [place] (1.005-1.025) Urine Protein (Negative) Urine Ketones (NEGATIVE) Urine Blood (0-5) Ross/ul Urine Nitrite (NEGATIVE) Urine Bilirubin (NEGATIVE) Urine Urobilinogen (0-1) mg/dL Ur Leukocyte Esterase (NEGATIVE) Urine WBC (Auto) (0-5) /HPF Urine RBC (Auto) (0-2) /HPF U Epithel Cells (Auto) (FEW) /HPF Urine Bacteria (Auto) (NEGATIVE) /HPF Urine Mucus (Auto) (NEGATIVE) /HPF Urine Culture Reflexed (NO) Urine Glucose (NEGATIVE) mg/dL Urine HCG, Qual (Negative) Urine Opiates Level (NEGATIVE) Ur Methadone (NEGATIVE) Urine Barbiturates (NEGATIVE) Ur Phencyclidine (PCP) (NEGATIVE) Urine Amphetamine (NEGATIVE) U Benzodiazepine Level (NEGATIVE) Urine Cocaine (NEGATIVE) Urine Marijuana (THC) (NEGATIVE) 12/29/21 12/29/21 12/29/21 Range/Units 14:37 14:35 14:35 WBC 11.2 H (4.0-10.5) K/mm3 RBC 3.94 L (4.1-5.4) M/mm3 Hgb 12.7 (12.0-16.0) gm/dl Hct 39.8 (35-47) % MCV 101.0 H (78-100) fl MCH 32.2 H (26-32) pg MCHC 31.9 L (32-36) g/dl RDW 13.6 (11.5-14.0) % Plt Count 357 (150-450) K/mm3 MPV 9.3 (7.5-11.0) fl Gran % 71.6 H (36.0-66.0) % Eos # (Auto) 0.32 (0-0.5) Absolute Lymphs (auto) 2.11 (1.0-4.6) Absolute Monos (auto) 0.70 (0.0-1.3) Lymphocytes % 18.8 L (24.0-44.0) % Monocytes % 6.2 (0.0-12.0) % Eosinophils % 2.8 (0.00-5.0) % Basophils % 0.6 (0.0-0.4) % Absolute Granulocytes 8.04 H (1.4-6.9) Basophils # 0.07 (0-0.4) Sodium (137-145) mmol/L Potassium (3.5-5.1) mmol/L Chloride (98-107) mmol/L Carbon Dioxide (22-30) mmol/L Anion Gap (5-15) MEQ/L BUN (7-17) mg/dL Creatinine (0.52-1.04) mg/dL Estimated GFR ML/MIN Glucose (74-106) mg/dL Lactic Acid (0.4-2.0) Calcium (8.4-10.2) mg/dL Phosphorus (2.5-4.5) mg/dL Magnesium (1.6-2.3) mg/dL Total Bilirubin (0.2-1.3) mg/dL Direct Bilirubin (0.0-0.4) mg/dL AST (14-36) U/L ALT (0-35) U/L Alkaline Phosphatase (38-126) U/L Serum Total Protein (6.3-8.2) g/dL Albumin (3.5-5.0) g/dL Urine Color (YELLOW) Urine Appearance (CLEAR) Urine pH (5-6) Ur Specific [place] (1.005-1.025) Urine Protein (Negative) Urine Ketones (NEGATIVE) Urine Blood (0-5) Ross/ul Urine Nitrite (NEGATIVE) Urine Bilirubin (NEGATIVE) Urine Urobilinogen (0-1) mg/dL Ur Leukocyte Esterase (NEGATIVE) Urine WBC (Auto) (0-5) /HPF Urine RBC (Auto) (0-2) /HPF U Epithel Cells (Auto) (FEW) /HPF Urine Bacteria (Auto) (NEGATIVE) /HPF Urine Mucus (Auto) (NEGATIVE) /HPF Urine Culture Reflexed (NO) Urine Glucose (NEGATIVE) mg/dL Urine HCG, Qual NEGATIVE (Negative) Urine Opiates Level NEGATIVE (NEGATIVE) Ur Methadone NEGATIVE (NEGATIVE) Urine Barbiturates NEGATIVE (NEGATIVE) Ur Phencyclidine (PCP) NEGATIVE (NEGATIVE) Urine Amphetamine NEGATIVE (NEGATIVE) U Benzodiazepine Level POSITIVE (NEGATIVE) Urine Cocaine NEGATIVE (NEGATIVE) Urine Marijuana (THC) NEGATIVE (NEGATIVE) 12/29/21 12/29/21 Range/Units 14:35 14:23 WBC (4.0-10.5) K/mm3 RBC (4.1-5.4) M/mm3 Hgb (12.0-16.0) gm/dl Hct (35-47) % MCV (78-100) fl MCH (26-32) pg MCHC (32-36) g/dl RDW (11.5-14.0) % Plt Count (150-450) K/mm3 MPV (7.5-11.0) fl Gran % (36.0-66.0) % Eos # (Auto) (0-0.5) Absolute Lymphs (auto) (1.0-4.6) Absolute Monos (auto) (0.0-1.3) Lymphocytes % (24.0-44.0) % Monocytes % (0.0-12.0) % Eosinophils % (0.00-5.0) % Basophils % (0.0-0.4) % Absolute Granulocytes (1.4-6.9) Basophils # (0-0.4) Sodium (137-145) mmol/L Potassium (3.5-5.1) mmol/L Chloride (98-107) mmol/L Carbon Dioxide (22-30) mmol/L Anion Gap (5-15) MEQ/L BUN (7-17) mg/dL Creatinine (0.52-1.04) mg/dL Estimated GFR ML/MIN Glucose (74-106) mg/dL Lactic Acid 1.0 (0.4-2.0) Calcium (8.4-10.2) mg/dL Phosphorus (2.5-4.5) mg/dL Magnesium (1.6-2.3) mg/dL Total Bilirubin (0.2-1.3) mg/dL Direct Bilirubin (0.0-0.4) mg/dL AST (14-36) U/L ALT (0-35) U/L Alkaline Phosphatase (38-126) U/L Serum Total Protein (6.3-8.2) g/dL Albumin (3.5-5.0) g/dL Urine Color YELLOW (YELLOW) Urine Appearance SLIGHTLY CLOUDY (CLEAR) Urine pH 5.0 (5-6) Ur Specific [place] 1.025 (1.005-1.025) Urine Protein NEGATIVE (Negative) Urine Ketones NEGATIVE (NEGATIVE) Urine Blood NEGATIVE (0-5) Ross/ul Urine Nitrite NEGATIVE (NEGATIVE) Urine Bilirubin NEGATIVE (NEGATIVE) Urine Urobilinogen 2 (0-1) mg/dL Ur Leukocyte Esterase NEGATIVE (NEGATIVE) Urine WBC (Auto) NONE (0-5) /HPF Urine RBC (Auto) 3-5 (0-2) /HPF U Epithel Cells (Auto) RARE (FEW) /HPF Urine Bacteria (Auto) NONE (NEGATIVE) /HPF Urine Mucus (Auto) SLIGHT (NEGATIVE) /HPF Urine Culture Reflexed ORDERED SEPARATELY (NO) Urine Glucose NEGATIVE (NEGATIVE) mg/dL Urine HCG, Qual (Negative) Urine Opiates Level (NEGATIVE) Ur Methadone (NEGATIVE) Urine Barbiturates (NEGATIVE) Ur Phencyclidine (PCP) (NEGATIVE) Urine Amphetamine (NEGATIVE) U Benzodiazepine Level (NEGATIVE) Urine Cocaine (NEGATIVE) Urine Marijuana (THC) (NEGATIVE) - Progress Progress: improved Progress Note: 12/29/21 14:48 The fact that the patient had no hypertension tachycardia during this seizure- like activity and the fact that I was able to get her to stop by putting my hand on her shoulder and asking her to open her eyes as well as her ability to respond appropriately with no perceived postictal period makes me believe these may be actual pseudoseizures. Work-up is currently pending at this time. I will try to reach out to her neurologist/psychiatrist to discuss the case after the work-up is back to determine disposition, recommendations and/or follow-up. 12/29/21 15:32 The patient continues to have no seizure-like activity. Her work-up is relati vely benign with no evidence of acidosis or elevated lactate. This is further strengthening my suspicion the patient is likely having a pseudoseizure. 12/29/21 15:[address] reviewed by me and I did not note any acute neurocranial pathology. Currently awaiting formal radiology review. 12/29/21 15:47 Nursing staff called the answering service with the patient's neuropsychiatrist as well as the patient's neuropsychiatrist admitting facility/hospital and they put a page out for him or her to call us back. 12/29/21 16:[address] Barney, neurologist, and discussed the case with him. He stated the patient has not been seen or followed up with him since 2019. He agreed with management and my impression as well. He was okay with the patient being discharged home but if she were to bounce back to the emergency department that she should go and be admitted to [facility] where they have a EEG capability. The patient's is at bedside and I discussed the work-up findings and impression/diagnosis as well as discharge plan. He agreed with this and was totally comfortable with the patient going home. He stated the patient's been under a lot of stress lately and that she actually try to commit suicide a month ago and is following up with the [facility] for this. He states that she has not been sleeping and her primary care provider prescribed Lyrica last week. He states that the patient has these seizure-like episodes frequently and that they can put a cold rag on her face to "snap her out of it" but it did not seem to work today so he called EMS. The patient is currently sleeping at this time and likely sequelae of the 5 mg of Versed she received. When she is awake and ambulatory she will be discharged home with providing transportation. Seizure precautions were given to include avoiding operating heavy machinery, driving, bathing alone or climbing heights. The also reports that she does not drive and he agrees with this as well and understands. Discussed with Dr.: Other (Dr. Barney) Counseled pt/family regarding: lab results, diagnosis, need for follow-up, rad results - Departure Departure Disposition: Home Clinical Impression: Seizure-like activity Condition: Good Critical Care Time: No Referrals: JUDY BARNEY MD [NON-STAFF PHY W/O PRIVILEGES] - Follow up/PCP as directed Instructions: Seizures, Adult (DC)
[2021-12-29 14:53] LABS: Absolute Neutrophil Ct (ANC) 8.04 (1.4-6.9); Basophil (Absolute #) 0.07 (0-0.4); Eosinophil % 2.8 % (0.00-5.0); Eosinophil (Absolute #) 0.32 (0-0.5); Hematocrit 39.8 % (35-47); Hemoglobin 12.7 gm/dl (12.0-16.0); Lymphocyte (Absolute #) 2.11 (1.0-4.6); Lymphocytes % 18.8 % (24.0-44.0); Mean Corpuscular Hemoglobin 32.2 pg (26-32); Mean Corpuscular Hgb Concent. 31.9 g/dl (32-36); Mean Platelet Volume 9.3 fl (7.5-11.0); Monocytes % 6.2 % (0.0-12.0); Neutrophil % 71.6 % (36.0-66.0); Platelet Count 357 K/mm3 (150-450); Red Blood Count 3.94 M/mm3 (4.1-5.4); Red Cell Distribution Width 13.6 % (11.5-14.0); White Blood Count 11.2 K/mm3 (4.0-10.5)
[2021-12-29 15:00] LABS: ALBUMIN 3.8 g/dL (3.5-5.0); ALKALINE PHOSPHATASE 62 U/L (38-126); ANION GAP 7.9 MEQ/L (5-15); BLOOD UREA NITROGEN 15 mg/dL (7-17); CHLORIDE 108 mmol/L (98-107); Calcium 9.2 mg/dL (8.4-10.2); Carbon Dioxide 29 mmol/L (22-30); Creatinine 1 0.74 mg/dL (0.52-1.04); Direct Bilirubin 0.2 mg/dL (0.0-0.4); EST GLOMERULAR FILTRATION RATE > 60.0 ML/MIN; Glucose 102 mg/dL (74-106); Potassium 3.9 mmol/L (3.5-5.1); SGOT/AST 19 U/L (14-36); SGPT/ALT 12 U/L (0-35); SODIUM 141 mmol/L (137-145); Total Protein 6.7 g/dL (6.3-8.2)
[2021-12-29 15:04] LABS: Appearance SLIGHTLY CLOUDY (CLEAR); Bilirubin NEGATIVE (NEGATIVE); Blood NEGATIVE Ery/ul (0-5); Epithelial Cells RARE /HPF (FEW); Glucose NEGATIVE (NEGATIVE); Ketones NEGATIVE (NEGATIVE); Leukocyte Esterase NEGATIVE (NEGATIVE); Mucus SLIGHT /HPF (NEGATIVE); Nitrite NEGATIVE (NEGATIVE); Protein,Urine Dip NEGATIVE (Negative); Specific Gravity 1.025 (1.005-1.025); Urobilinogen 2 mg/dL (0-1)
[2021-12-29 15:15] LABS: Amphetamine,Urine NEGATIVE (NEGATIVE); Barbiturate,Urine NEGATIVE (NEGATIVE); Benzodiazepine,Urine POSITIVE (NEGATIVE); Cocaine,Urine NEGATIVE (NEGATIVE); Methadone,Urine NEGATIVE (NEGATIVE); Opiate,Urine NEGATIVE (NEGATIVE); PCP,Urine NEGATIVE (NEGATIVE); THC,Urine NEGATIVE (NEGATIVE)
[2021-12-29 17:14] VITALS: BP 134/85; PULSE 83; O2SAT 97
--- NOTE | 2021-12-29 19:47 | XRAY ---
Indication: Seizure. History of seizures. Multiple contiguous axial images obtained through the head without contrast. Comparison: July 09, 2020. Normal appearing brain parenchyma, ventricles, and bony calvarium. Visualized paranasal sinuses and mastoid air cells are clear. Impression: Continued normal CT head without contrast exam. Comment: Preliminary interpretation made by [facility]. No critical discrepancy.
== END 2021-12-29 17:15 | disposition home or self-care (01) ==
LOC: ED 14:11
DX: R56.9 Unspecified convulsions (principal); E78.5 Hyperlipidemia, unspecified; J44.9 Chronic obstructive pulmonary disease, unspecified; K21.9 Gastro-esophageal reflux disease without esophagitis; F41.9 Anxiety disorder, unspecified; Z72.0 Tobacco use; Z79.899 Other long term (current) drug therapy
CPT/HCPCS: 36000; 36415; 70450; 80048; 80076; 80307; 81001; 83605; 83735; 84100; 84703; 85025; 87086; 93005; 93041; 99284

== ENCOUNTER 2022-01-07 23:02 | Emergency (ER) | payer OTHER ==
--- NOTE | 2022-01-07 23:09 | ERPHSYRPT ---
- History of Present Illness Time Seen by Provider: 01/07/22 23:08 Source: patient Exam Limitations: no limitations Physician History: This is a 46-year-old white female patient who presents with pain in her right calf as well as central, substernal, nonradiating chest pressure that is been present for 2 days. She did start a new medication called Saphris 5 mg. She is wondering if this may be causing her symptoms. She did not have any trauma to her leg or chest. Patient is a current daily smoker. Patient also has a history of anxiety, seizure disorder, lupus, elevated cholesterol, COPD, fibromyalgia, degenerative disc disease, gastroesophageal reflux disease, panic disorder, peripheral neuropathy. She has no known cardiac history. Method of Injury: other (No injury) Occurred: days ago (To) Quality: intermittent, other (Chest pressure and achiness in her right calf) Severity of Pain-Max: mild Severity of Pain-Current: mild Lower Extremities Pain: leg: right (Calf) Modifying Factors: Improves With: nothing Associated Symptoms: none Allergies/Adverse Reactions: ca Allergy (Severe, Verified 01/08/22 00:05) Swelling pregabalin [From Lyrica] Allergy (Severe, Verified 01/08/22 00:05) Penicillins Allergy (Verified 01/08/22 00:05) Rash propoxyphene HCl [From Darvon] Allergy (Verified 01/08/22 00:05) PASS OUT morphine Adverse Reaction (Verified 01/08/22 00:05) can not take pill form Home Medications: Erenumab-Aooe [Aimovig Autoinjector] 170 mg IJ UD 02/20/19 [History] Propranolol HCl 20 mg [Inderal 20 MG] 40 mg PO QHS 02/20/19 [History] levETIRAcetam [Levetiracetam] 1,000 mg PO BID 02/20/19 [History] Lorazepam 0.5 mg [Ativan 0.5 MG] 1 tab PO BID PRN 12/29/21 [History] Asenapine Maleate [Saphris] 5 mg PO QHS 01/08/22 [History] SUMAtriptan succinate [Imitrex 50 mg] 50 mg PO QDP PRN 01/08/22 [History] Hx Tetanus, Diphtheria Vaccination/Date Given: No Hx Influenza Vaccination/Date Given: Yes Hx Pneumococcal Vaccination/Date Given: No Travel Risk - International Travel Have you traveled outside of the country in past 3 weeks: No - Coronavirus Screening Are you exhibiting any of the following symptoms?: No Close contact with a COVID-19 positive Pt in past 14-21 Days: No - Vaccine Status Have you recieved a 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: 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 - Review of Systems Constitutional: No Symptoms Eyes: No Symptoms Ears, Nose, & Throat: No Symptoms Respiratory: No Symptoms Cardiac: Chest Pain (Described as central, substernal nonradiating) Abdominal/Gastrointestinal: No Symptoms Genitourinary Symptoms: No Symptoms Musculoskeletal: Other (Achiness right posterior calf) Skin: No Symptoms Neurological: No Symptoms Psychological: No Symptoms Endocrine: No Symptoms Hematologic/Lymphatic: No Symptoms Immunological/Allergic: No Symptoms All Other Systems: Reviewed and Negative - Past Medical History Pertinent Past Medical History: Yes Neurological History: Seizures ENT History: No Pertinent History Cardiac History: High Cholesterol Respiratory History: COPD Endocrine Medical History: Other Musculoskeletal History: Degenerative Disk Disease, Fibromyalgia GI Medical History: Esophageal Disorder, GERD History: No Pertinent History Psycho-Social History: Anxiety, Depression, Panic Disorder Female Reproductive Disorders: Abnormal Uterine Bleeding Other Medical History: Lupus, Neuropathy, DDD - Past Surgical History Past Surgical History: Yes Neuro Surgical History: No Pertinent History Cardiac: No Pertinent History Respiratory: No Pertinent History Gastrointestinal: No Pertinent History Genitourinary: No Pertinent History Musculoskeletal: Other Female Surgical History: Section, Tubal Ligation, Other Other Surgical History: ABLATION - TUBAL LIGATION. BILATERAL WRIST SURGERY. PLATE AND TWO SCREWS IN THE BACK OF NECK. 12/26/20 Surgery to back. cadaver bone in neck - Social History Smoking Status: Current every day smoker How long have you smoked: 30 years Exposure to second hand smoke: No Drug Use: none Patient Lives Alone: No - Nursing Vital Signs Nursing Vital Signs: Initial Vital Signs Pulse Rate 87 01/08/22 00:03 Respiratory Rate 18 01/08/22 00:03 Blood Pressure 136/85 01/08/22 00:03 O2 Sat by Pulse Oximetry 93 L 01/08/22 00:03 Pain Scale Pain Intensity 6 - Physical Exam General Appearance: no apparent distress, alert, anxiety Eyes, Ears, Nose, Throat Exam: normal ENT inspection, moist mucous membranes Neck Exam: normal inspection, non-tender, supple, full range of motion Cardiovascular/Respiratory Exam: normal breath sounds, regular rate/rhythm, heart sounds normal, no respiratory distress Gastrointestinal/Abdominal Exam: non-tender Back Exam: normal inspection, normal range of motion, No CVA tenderness, No vertebral tenderness Hips Exam: bilateral: non-tender, normal inspection, normal range of motion, no evidence of injury Legs Exam: left leg: non-tender (Right calf pain), bilateral leg: normal ins pection, normal range of motion, no evidence of injury Knees Exam: bilateral knee: non-tender, normal inspection, normal range of motion, no evidence of injury Ankle Exam: bilateral ankle: non-tender, normal inspection, normal range of motion, no evidence of injury Foot Exam: bilateral foot: non-tender, normal inspection, normal range of motion, no evidence of injury Neuro/Tendon Exam: normal sensation, normal motor functions, normal tendon functions, responds to pain, no evidence tendon injury Mental Status Exam: alert, 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, cooperative Skin Exam: normal color, warm, dry SpO2 Interpretation: normal O2 Delivery: Room Air - Course Nursing assessment & vital signs reviewed: Yes EKG Interpreted by Me: RATE (77), Sinus Rhythm, Left [place] Deviation, NORMAL INTERVALS, NORMAL QRS, NORMAL ST-T, Other (No acute ischemic changes on today's EKG. No significant change from 12-lead EKG dated 12/29/2021) Ordered Tests: Active Orders 24 hr Category Date Time Status EKG-ER Only STAT Care 01/07/22 23:36 Active IV Insertion STAT Care 01/07/22 23:36 Active TROPONIN Q3H Lab 01/08/22 02:45 Ordered TROPONIN Q3H Lab 01/08/22 05:45 Ordered TROPONIN Q3H Lab 01/08/22 08:45 Ordered TROPONIN Q3H Lab 01/08/22 11:45 Ordered Medication Summary Discontinued Medications Generic Name Dose Route Start Last Admin Trade Name Manish PRN Reason Stop Dose Admin Acetaminophen 650 mg 01/08/22 00:21 01/08/22 00:23 Acetaminophen 325 Mg Tablet PO 01/08/22 00:22 650 mg STAT STA Administration Acetaminophen Confirm 01/08/22 00:22 Acetaminophen 325 Mg Tablet Administered 01/08/22 00:23 Dose 650 mg .ROUTE .K-MED ONE Lab/Rad Data: Laboratory Result Diagrams 01/07/22 00:04 01/07/22 00:04 Laboratory Results 01/07/22 01/07/22 01/07/22 Range/Units 00:04 00:04 00:04 WBC (4.0-10.5) K/mm3 RBC (4.1-5.4) M/mm3 Hgb (12.0-16.0) gm/dl Hct (35-47) % MCV (78-100) fl MCH (26-32) pg MCHC (32-36) g/dl RDW (11.5-14.0) % Plt Count (150-450) K/mm3 MPV (7.5-11.0) fl Gran % (36.0-66.0) % Eos # (Auto) (0-0.5) Absolute Lymphs (auto) (1.0-4.6) Absolute Monos (auto) (0.0-1.3) Lymphocytes % (24.0-44.0) % Monocytes % (0.0-12.0) % Eosinophils % (0.00-5.0) % Basophils % (0.0-0.4) % Absolute Granulocytes (1.4-6.9) Basophils # (0-0.4) D-Dimer 260 (215-500) ng/mL Sodium 144 (137-145) mmol/L Potassium 3.8 (3.5-5.1) mmol/L Chloride 105 (98-107) mmol/L Carbon Dioxide 29 (22-30) mmol/L Anion Gap 14.1 (5-15) MEQ/L BUN 20 H (7-17) mg/dL Creatinine 0.91 (0.52-1.04) mg/dL Estimated GFR > 60.0 ML/MIN Glucose 77 (74-106) mg/dL Calcium 10.2 (8.4-10.2) mg/dL Total Bilirubin 0.30 (0.2-1.3) mg/dL AST 21 (14-36) U/L ALT 15 (0-35) U/L Alkaline Phosphatase 59 (38-126) U/L Troponin I < 0.012 (0.000-0.034) ng/mL Serum Total Protein 7.4 (6.3-8.2) g/dL Albumin 4.5 (3.5-5.0) g/dL 01/07/22 Range/Units 00:04 WBC 9.1 (4.0-10.5) K/mm3 RBC 4.09 L (4.1-5.4) M/mm3 Hgb 13.3 (12.0-16.0) gm/dl Hct 40.6 (35-47) % MCV 99.3 (78-100) fl MCH 32.5 H (26-32) pg MCHC 32.8 (32-36) g/dl RDW 13.3 (11.5-14.0) % Plt Count 373 (150-450) K/mm3 MPV 9.4 (7.5-11.0) fl Gran % 51.4 (36.0-66.0) % Eos # (Auto) 0.34 (0-0.5) Absolute Lymphs (auto) 3.12 (1.0-4.6) Absolute Monos (auto) 0.90 (0.0-1.3) Lymphocytes % 34.2 (24.0-44.0) % Monocytes % 9.9 (0.0-12.0) % Eosinophils % 3.7 (0.00-5.0) % Basophils % 0.8 (0.0-0.4) % Absolute Granulocytes 4.70 (1.4-6.9) Basophils # 0.07 (0-0.4) D-Dimer (215-500) ng/mL Sodium (137-145) mmol/L Potassium (3.5-5.1) mmol/L Chloride (98-107) mmol/L Carbon Dioxide (22-30) mmol/L Anion Gap (5-15) MEQ/L BUN (7-17) mg/dL Creatinine (0.52-1.04) mg/dL Estimated GFR ML/MIN Glucose (74-106) mg/dL Calcium (8.4-10.2) mg/dL Total Bilirubin (0.2-1.3) mg/dL AST (14-36) U/L ALT (0-35) U/L Alkaline Phosphatase (38-126) U/L Troponin I (0.000-0.034) ng/mL Serum Total Protein (6.3-8.2) g/dL Albumin (3.5-5.0) g/dL - Departure Departure Disposition: Home Clinical Impression: Right calf pain, Non-cardiac chest pain Condition: Stable Critical Care Time: No Referrals: JUDY BLAND MD [Primary Care Provider] - Follow up/PCP as directed Additional Instructions: Drink plenty of fluids. Call your prescribing doctor this morning to make arranges for follow-up appointment for further evaluation management.
[2022-01-08 00:07] LABS: Basophil (Absolute #) 0.07 (0-0.4); Eosinophil % 3.7 % (0.00-5.0); Eosinophil (Absolute #) 0.34 (0-0.5); Hematocrit 40.6 % (35-47); Hemoglobin 13.3 gm/dl (12.0-16.0); Lymphocyte (Absolute #) 3.12 (1.0-4.6); Lymphocytes % 34.2 % (24.0-44.0); Mean Cell Volume 99.3 fl (78-100); Mean Corpuscular Hemoglobin 32.5 pg (26-32); Mean Corpuscular Hgb Concent. 32.8 g/dl (32-36); Mean Platelet Volume 9.4 fl (7.5-11.0); Monocytes % 9.9 % (0.0-12.0); Neutrophil % 51.4 % (36.0-66.0); Platelet Count 373 K/mm3 (150-450); Red Blood Count 4.09 M/mm3 (4.1-5.4); Red Cell Distribution Width 13.3 % (11.5-14.0); White Blood Count 9.1 K/mm3 (4.0-10.5)
[2022-01-08 00:21] LABS: ALBUMIN 4.5 g/dL (3.5-5.0); ALKALINE PHOSPHATASE 59 U/L (38-126); ANION GAP 14.1 MEQ/L (5-15); BLOOD UREA NITROGEN 20 mg/dL (7-17); CHLORIDE 105 mmol/L (98-107); Calcium 10.2 mg/dL (8.4-10.2); Carbon Dioxide 29 mmol/L (22-30); Creatinine 1 0.91 mg/dL (0.52-1.04); EST GLOMERULAR FILTRATION RATE > 60.0 ML/MIN; Glucose 77 mg/dL (74-106); Potassium 3.8 mmol/L (3.5-5.1); SGOT/AST 21 U/L (14-36); SGPT/ALT 15 U/L (0-35); SODIUM 144 mmol/L (137-145); Total Protein 7.4 g/dL (6.3-8.2)
[2022-01-08] MEDS ORDERED: TYLENOL 325 MG PO STA (00:21)
[2022-01-08] MEDS ORDERED: TYLENOL 325 MG ONE (00:22)
[2022-01-08 01:14] VITALS: BP 113/63; PULSE 79; O2SAT 92
== END 2022-01-08 01:25 | disposition home or self-care (01) ==
LOC: ED 23:02
DX: M79.661 Pain in right lower leg (principal); R07.89 Other chest pain; E78.5 Hyperlipidemia, unspecified; J44.9 Chronic obstructive pulmonary disease, unspecified; K21.9 Gastro-esophageal reflux disease without esophagitis; G62.9 Polyneuropathy, unspecified; Z72.0 Tobacco use; Z79.899 Other long term (current) drug therapy
CPT/HCPCS: 36415; 80053; 84484; 85025; 85379; 93005; 99284; A9270-GY

== ENCOUNTER 2022-01-22 19:29 | Emergency (ER) | payer OTHER ==
[2022-01-22] MEDS ORDERED: Zofran 4 MG/2 ML VIAL ONE (19:59)
[2022-01-22] MEDS ORDERED: Zofran 4 MG/2 ML VIAL IV ONE (20:00)
[2022-01-22 20:01] LABS: Absolute Neutrophil Ct (ANC) 4.86 (1.4-6.9); Basophil (Absolute #) 0.07 (0-0.4); Eosinophil % 3.7 % (0.00-5.0); Eosinophil (Absolute #) 0.32 (0-0.5); Hematocrit 38.5 % (35-47); Hemoglobin 12.7 gm/dl (12.0-16.0); Lymphocyte (Absolute #) 2.54 (1.0-4.6); Lymphocytes % 29.7 % (24.0-44.0); Mean Cell Volume 100.3 fl (78-100); Mean Corpuscular Hemoglobin 33.1 pg (26-32); Mean Platelet Volume 10.2 fl (7.5-11.0); Monocyte (Absolute #) 0.76 (0.0-1.3); Monocytes % 8.9 % (0.0-12.0); Neutrophil % 56.9 % (36.0-66.0); Platelet Count 358 K/mm3 (150-450); Red Blood Count 3.84 M/mm3 (4.1-5.4); Red Cell Distribution Width 12.8 % (11.5-14.0); White Blood Count 8.6 K/mm3 (4.0-10.5)
[2022-01-22 20:17] LABS: ALBUMIN 4.2 g/dL (3.5-5.0); ALKALINE PHOSPHATASE 52 U/L (38-126); BLOOD UREA NITROGEN 18 mg/dL (7-17); CHLORIDE 108 mmol/L (98-107); Calcium 9.5 mg/dL (8.4-10.2); Carbon Dioxide 26 mmol/L (22-30); Creatinine 1 0.84 mg/dL (0.52-1.04); EST GLOMERULAR FILTRATION RATE > 60.0 ML/MIN; Glucose 101 mg/dL (74-106); LIPASE 151 U/L (23-300); NT PRO BNP 39.3 pg/mL (0-450); Potassium 4.3 mmol/L (3.5-5.1); SGOT/AST 19 U/L (14-36); SGPT/ALT 12 U/L (0-35); SODIUM 141 mmol/L (137-145); Total Protein 6.8 g/dL (6.3-8.2)
--- NOTE | 2022-01-22 20:21 | ERPHSYRPT ---
- History of Present Illness Time Seen by Provider: 01/22/22 19:40 Source: patient Exam Limitations: no limitations Patient Subjective Stated Complaint: Patient states she woke up this morning with left lower abdominal pain that is now radiating into her chest pain. The pa in has gotten worse throughout the day. States pain in her abdomen is worse than the pain in her chest at this time. C/O nausea but denies vomiting. Triage Nursing Assessment: Patient wheeled back to ED in a wheelchair. Transfered to bed without difficulties. Patient displaying s/s of pain. Unable to sit still in bed. She is alert and oriented and answering questions appro priately. Regular heart rate. Rapid breathing. Patient instructed to slow her breathing. Rebound tenderness noted to left lower abdominal quad. Physician History: Patient is a 46-year-old female presents to emergency department for evaluation of lower abdominal pain. Patient states pain was present when she awoke this morning. Pain tends to radiate to her chest. Patient states pain is gotten progressively worse throughout the day. Patient has been feeling nauseous. No vomiting. No diarrhea. No rash. No trauma. No fever. Symptoms are moderate in intensity. No specific worsening improving factors. No associated dysuria. No hematuria. Patient denies a history of the same. She voices no other complaints or concerns at this time. Timing/Duration: today Severity: moderate Modifying Factors: Improves With: nothing Associated Symptoms: nausea, abdominal pain, chest pain, No vomiting, No shortness of breath, No fever, No loss of appetite, No syncope, No seizure Allergies/Adverse Reactions: ca Allergy (Severe, Verified 01/22/22 19:31) Swelling pregabalin [From Lyrica] Allergy (Severe, Verified 01/22/22 19:31) Penicillins Allergy (Verified 01/22/22 19:31) Rash propoxyphene HCl [From Darvon] Allergy (Verified 01/22/22 19:31) PASS OUT morphine Adverse Reaction (Verified 01/22/22 19:31) can not take pill form Home Medications: Erenumab-Aooe [Aimovig Autoinjector] 170 mg IJ UD 02/20/19 [History] Propranolol HCl 20 mg [Inderal 20 MG] 40 mg PO QHS 02/20/19 [History] levETIRAcetam [Levetiracetam] 1,000 mg PO BID 02/20/19 [History] Lorazepam 0.5 mg [Ativan 0.5 MG] 1 tab PO BID PRN 12/29/21 [History] Asenapine Maleate [Saphris] 5 mg PO QHS 01/08/22 [History] SUMAtriptan succinate [Imitrex 50 mg] 50 mg PO QDP PRN 01/08/22 [History] Hx Tetanus, Diphtheria Vaccination/Date Given: No Hx Influenza Vaccination/Date Given: No Hx Pneumococcal Vaccination/Date Given: No Immunizations Up to Date: Yes Travel Risk - International Travel Have you traveled outside of the country in past 3 weeks: No - Coronavirus Screening Are you exhibiting any of the following symptoms?: No Close contact with a COVID-19 positive Pt in past 14-21 Days: No - Vaccine Status Have you recieved a 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: 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[employer] - Vaccination Dates Date of 2cond Vaccination (if applicable): 2020 - Review of Systems Constitutional: No Symptoms, No Fever, No Chills Eyes: No Symptoms Ears, Nose, & Throat: No Symptoms Respiratory: No Symptoms, No Cough, No Dyspnea Cardiac: No Symptoms, No Chest Pain, No Edema, No Syncope Abdominal/Gastrointestinal: No Symptoms, No Abdominal Pain, No Nausea, No Vomiting, No Diarrhea Genitourinary Symptoms: No Symptoms, No Dysuria Musculoskeletal: No Symptoms, No Back Pain, No Neck Pain Skin: No Symptoms, No Rash Neurological: No Symptoms, No Dizziness, No Focal Weakness, No Sensory Changes Psychological: No Symptoms Endocrine: No Symptoms Hematologic/Lymphatic: No Symptoms Immunological/Allergic: No Symptoms All Other Systems: Reviewed and Negative - Past Medical History Pertinent Past Medical History: Yes Neurological History: Seizures ENT History: No Pertinent History Cardiac History: High Cholesterol Respiratory History: COPD Endocrine Medical History: Other Musculoskeletal History: Degenerative Disk Disease, Fibromyalgia GI Medical History: Esophageal Disorder, GERD History: No Pertinent History Psycho-Social History: Anxiety, Depression, Panic Disorder Female Reproductive Disorders: Abnormal Uterine Bleeding Other Medical History: Lupus, Neuropathy, DDD - Past Surgical History Past Surgical History: Yes Neuro Surgical History: No Pertinent History Cardiac: No Pertinent History Respiratory: No Pertinent History Gastrointestinal: No Pertinent History Genitourinary: No Pertinent History Musculoskeletal: Other Female Surgical History: Section, Tubal Ligation, Other Other Surgical History: ABLATION - TUBAL LIGATION. BILATERAL WRIST SURGERY. PLATE AND TWO SCREWS IN THE BACK OF NECK. 12/26/20 Surgery to back. cadaver bone in neck - Social History Smoking Status: Current every day smoker How long have you smoked: 31 years Exposure to second hand smoke: No Drug Use: none Patient Lives Alone: No - Female History Hx Last Menstrual Period: 17 years ago Hx Now: No - Nursing Vital Signs Nursing Vital Signs: Initial Vital Signs Temperature 98.2 F 01/22/22 19:32 Pulse Rate 96 H 01/22/22 19:32 Respiratory Rate 20 01/22/22 19:32 Blood Pressure 127/79 01/22/22 19:32 O2 Sat by Pulse Oximetry 99 01/22/22 19:32 Pain Scale Pain Intensity 6 - Physical Exam General Appearance: no apparent distress, alert Eye Exam: PERRL/EOMI, eyes nml inspection Ears, Nose, Throat Exam: normal ENT inspection, TMs normal, pharynx normal, moist mucous membranes Neck Exam: normal inspection, non-tender, supple, full range of motion Respiratory Exam: normal breath sounds, lungs clear, No respiratory distress Cardiovascular Exam: regular rate/rhythm, normal heart sounds, normal peripheral pulses Gastrointestinal/Abdomen Exam: soft, normal bowel sounds, No tenderness, No mass Back Exam: normal inspection, normal range of motion, No CVA tenderness, No vertebral tenderness Extremity Exam: normal inspection, normal range of motion, pelvis stable Neurologic Exam: alert, 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, cooperative, normal mood/affect, nml cerebellar function, nml station & gait, sensation nml, No motor deficits Skin Exam: normal color, warm, dry, No rash Lymphatic Exam: No adenopathy SpO2 Interpretation: normal SpO2: 99 O2 Delivery: Room Air - Course Nursing assessment & vital signs reviewed: Yes EKG Interpreted by Me: RATE (92), Sinus Rhythm, NORMAL AXIS, NORMAL INTERVALS - Radiology Exams Chest X-ray Interpretation: Interpreted by me (Normal heart lungs and bony thorax. Lower cervical spine fusion hardware observed) - CT Exams Abdomen/Pelvis CT Interpretation: Tele-radiologist Report (Compared to 09/12/2021, mild new diffuse fecal stasis. Normal appendix. Stable left renal cyst and old granulomatous disease. Small new hiatal hernia. Remaining abdomen pelvis negative.) Ordered Tests: Active Orders 24 hr Category Date Time Status Engineering Coordinator STAT Care 01/22/22 19:53 Active EKG-ER Only STAT Care 01/22/22 19:52 Active IV Insertion STAT Care 01/22/22 19:52 Active Pulse Oximetry (ED) STAT Care 01/22/22 19:52 Active ABDOMEN AND PELVIS W CONTRAST [CT] Stat Exams 01/22/22 20:56 Taken CHEST 1 VIEW (PORTABLE) Stat Exams 01/22/22 20:54 Taken CBC W DIFF Stat Lab 01/22/22 19:52 Completed CMP Stat Lab 01/22/22 19:50 Completed D-DIMER QUANTITATIVE Stat Lab 01/22/22 19:50 Completed LIPASE Stat Lab 01/22/22 19:50 Completed NT PRO BNP Stat Lab 01/22/22 19:50 Completed TROPONIN Q3H Lab 01/22/22 19:50 Completed TROPONIN Q3H Lab 01/22/22 23:18 Received TROPONIN Q3H Lab 01/23/22 02:00 Ordered TROPONIN Q3H Lab 01/23/22 05:00 Ordered TROPONIN Q3H Lab 01/23/22 08:00 Ordered Medication Summary Discontinued Medications Generic Name Dose Route Start Last Admin Trade Name Freq PRN Reason Stop Dose Admin Morphine Sulfate 2 mg 01/22/22 21:35 01/22/22 22:18 Morphine Sulfate 2 Mg/Ml Inj IV 01/22/22 21:36 2 mg STAT ONE Administration Morphine Sulfate Confirm 01/22/22 22:17 Morphine Sulfate 2 Mg/Ml Inj Administered 01/22/22 22:18 Dose 2 mg .ROUTE .STK-MED ONE Ondansetron HCl Confirm 01/22/22 19:59 Ondansetron Hcl 4 Mg/2 Ml Vial Administered 01/22/22 20:00 Dose 4 mg .ROUTE .STK-MED ONE Ondansetron HCl 4 mg 01/22/22 20:00 01/22/22 20:00 Ondansetron Hcl 4 Mg/2 Ml Vial IV 01/22/22 20:01 4 mg STAT ONE Administration Lab/Rad Data: Laboratory Result Diagrams 01/22/22 19:52 01/22/22 19:50 Laboratory Results 01/22/22 01/22/22 01/22/22 Range/Units 20:31 19:52 19:50 WBC 8.6 (4.0-10.5) K/mm3 RBC 3.84 L (4.1-5.4) M/mm3 Hgb 12.7 (12.0-16.0) gm/dl Hct 38.5 (35-47) % MCV 100.3 H (78-100) fl MCH 33.1 H (26-32) pg MCHC 33.0 (32-36) g/dl RDW 12.8 (11.5-14.0) % Plt Count 358 (150-450) K/mm3 MPV 10.2 (7.5-11.0) fl Gran % 56.9 (36.0-66.0) % Eos # (Auto) 0.32 (0-0.5) Absolute Lymphs (auto) 2.54 (1.0-4.6) Absolute Monos (auto) 0.76 (0.0-1.3) Lymphocytes % 29.7 (24.0-44.0) % Monocytes % 8.9 (0.0-12.0) % Eosinophils % 3.7 (0.00-5.0) % Basophils % 0.8 (0.0-0.4) % Absolute Granulocytes 4.86 (1.4-6.9) Basophils # 0.07 (0-0.4) D-Dimer (215-500) ng/mL Sodium (137-145) mmol/L Potassium (3.5-5.1) mmol/L Chloride (98-107) mmol/L Carbon Dioxide (22-30) mmol/L Anion Gap (5-15) MEQ/L BUN (7-17) mg/dL Creatinine (0.52-1.04) mg/dL Estimated GFR ML/MIN Glucose (74-106) mg/dL Calcium (8.4-10.2) mg/dL Total Bilirubin (0.2-1.3) mg/dL AST (14-36) U/L ALT (0-35) U/L Alkaline Phosphatase (38-126) U/L Troponin I < 0.012 (0.000-0.034) ng/mL NT-Pro-B Natriuret Pep (0-450) pg/mL Serum Total Protein (6.3-8.2) g/dL Albumin (3.5-5.0) g/dL Lipase (23-300) U/L Urinalys Dipstick Clnc MAIN LAB Urine Color YELLOW (YELLOW) Urine Appearance CLEAR (CLEAR) Urine pH 6.5 (5-6) Ur Specific [place] >=1.030 (1.005-1.025) POC Urine Protein Conf NEGATIVE (Negative) Urine Ketones NEGATIVE (NEGATIVE) Urine Nitrite NEGATIVE (NEGATIVE) Urine Bilirubin NEGATIVE (NEGATIVE) Urine Urobilinogen 0.2 (0-1) mg/dL Urine Leukocytes NEGATIVE (NEGATIVE) Urine WBC (Auto) 0-2 (0-5) /HPF Urine RBC (Auto) 3-5 (0-2) /HPF U Epithel Cells (Auto) RARE (FEW) /HPF Urine Bacteria (Auto) NONE SEEN (NEGATIVE) /HPF Urine RBC TRACE-INTACT (0-5) Ross/ul Urine Mucus (Auto) SLIGHT (NEGATIVE) /HPF Ur Culture Indicated? NO Urine Glucose NEGATIVE (NEGATIVE) mg/dL 01/22/22 01/22/22 Range/Units 19:50 19:50 WBC (4.0-10.5) K/mm3 RBC (4.1-5.4) M/mm3 Hgb (12.0-16.0) gm/dl Hct (35-47) % MCV (78-100) fl MCH (26-32) pg MCHC (32-36) g/dl RDW (11.5-14.0) % Plt Count (150-450) K/mm3 MPV (7.5-11.0) fl Gran % (36.0-66.0) % Eos # (Auto) (0-0.5) Absolute Lymphs (auto) (1.0-4.6) Absolute Monos (auto) (0.0-1.3) Lymphocytes % (24.0-44.0) % Monocytes % (0.0-12.0) % Eosinophils % (0.00-5.0) % Basophils % (0.0-0.4) % Absolute Granulocytes (1.4-6.9) Basophils # (0-0.4) D-Dimer 324 (215-500) ng/mL Sodium 141 (137-145) mmol/L Potassium 4.3 (3.5-5.1) mmol/L Chloride 108 H (98-107) mmol/L Carbon Dioxide 26 (22-30) mmol/L Anion Gap 12.0 (5-15) MEQ/L BUN 18 H (7-17) mg/dL Creatinine 0.84 (0.52-1.04) mg/dL Estimated GFR > 60.0 ML/MIN Glucose 101 (74-106) mg/dL Calcium 9.5 (8.4-10.2) mg/dL Total Bilirubin 0.30 (0.2-1.3) mg/dL AST 19 (14-36) U/L ALT 12 (0-35) U/L Alkaline Phosphatase 52 (38-126) U/L Troponin I (0.000-0.034) ng/mL NT-Pro-B Natriuret Pep 39.3 (0-450) pg/mL Serum Total Protein 6.8 (6.3-8.2) g/dL Albumin 4.2 (3.5-5.0) g/dL Lipase 151 (23-300) U/L Urinalys Dipstick Clnc Urine Color (YELLOW) Urine Appearance (CLEAR) Urine pH (5-6) Ur Specific [place] (1.005-1.025) POC Urine Protein Conf (Negative) Urine Ketones (NEGATIVE) Urine Nitrite (NEGATIVE) Urine Bilirubin (NEGATIVE) Urine Urobilinogen (0-1) mg/dL Urine Leukocytes (NEGATIVE) Urine WBC (Auto) (0-5) /HPF Urine RBC (Auto) (0-2) /HPF U Epithel Cells (Auto) (FEW) /HPF Urine Bacteria (Auto) (NEGATIVE) /HPF Urine RBC (0-5) Ross/ul Urine Mucus (Auto) (NEGATIVE) /HPF Ur Culture Indicated? Urine Glucose (NEGATIVE) mg/dL - Progress Progress: improved Progress Note: Patient reassessed. Pain resolved. CT scan negative for acute intra-abdominal pathology. Fecal stasis observed. No hiatal hernia observed. Chest x-ray negative as well. Labs are essentially nonremarkable. UA negative for UTI patient states is ready for discharge. No indication for further work-up at this time. Will discharge home. Portions of this note were created with voice recognition technology. There may be grammatical, spelling, punctuation or sound alike errors 01/22/22 23:43 01/22/22 23:45 Counseled pt/family regarding: lab results, diagnosis, need for follow-up, rad results - Departure Departure Disposition: Home Clinical Impression: Fecal stasis, Stable left renal cyst, Old granulomatous disease, Hiatal hernia, Abdominal pain Condition: Stable Critical Care Time: No Referrals: JUDY BLAND MD [Primary Care Provider] - Follow up/PCP as directed
[2022-01-22 20:59] LABS: Appearance CLEAR (CLEAR); Bilirubin NEGATIVE (NEGATIVE); Dipstick done @ ? MAIN LAB; Glucose NEGATIVE (NEGATIVE); Ketones NEGATIVE (NEGATIVE); Nitrite NEGATIVE (NEGATIVE); Ph 6.5 (5-6); Protein,Urine Dip NEGATIVE (Negative); RBC TRACE-INTACT Ery/ul (0-5); Specific Gravity >=1.030 (1.005-1.025); Urobilinogen 0.2 mg/dL (0-1)
[2022-01-22 21:07] LABS: Epithelial Cells RARE /HPF (FEW); Mucus SLIGHT /HPF (NEGATIVE); WBC 0-2 /HPF (0-5)
[2022-01-22 21:12] LABS: Bacteria NONE SEEN /HPF (NEGATIVE)
[2022-01-22 21:13] LABS: Urine Cultured Indicated? NO
[2022-01-22] MEDS ORDERED: MORPHINE SULFATE 2 MG INJ IV ONE (21:35)
[2022-01-22] MEDS ORDERED: MORPHINE SULFATE 2 MG INJ ONE (22:17)
[2022-01-22 22:46] VITALS: BP 137/87; PULSE 66
[2022-01-22 23:33] VITALS: O2SAT 99
--- NOTE | 2022-01-23 08:57 | XRAY ---
Indication: Chest pain. Comparison: March 24, 2021. Portable chest again demonstrates normal heart and lungs. Bony thorax intact again with lower cervical fusion hardware. No new/acute findings.
--- NOTE | 2022-01-23 08:57 | XRAY ---
Indication: Abdomen and pelvic pain. Multiple contiguous axial images obtained through the abdomen and pelvis using 80 cc Isovue 370 contrast. Comparison: September 12, 2021. Lung bases again demonstrates minimal dependent atelectasis and stable 5 mm benign right base noncalcified nodule. Heart not enlarged. New small hiatal hernia. Stomach is distended with food/fluid. Noncontrasted stomach and bowel loops appear nonobstructed with normal appendix. There is now mild diffuse scattered colonic fecal debris throughout. No free fluid/air. Contracted gallbladder without obvious gallstones. Stable left upper renal exophytic cyst and calcified splenic granulomas. Remaining liver, pancreas, adrenal glands, kidneys, ureters, bladder, uterus, and aorta are unremarkable. No pathologic retroperitoneal lymphadenopathy. Osseous structures intact. Impression: 1. New small hiatal hernia and mild diffuse fecal stasis. 2. Stable left renal cyst and old granulomatous disease. 3. Remaining CT abdomen/pelvis with contrast exam is negative.
== END 2022-01-22 23:57 | disposition home or self-care (01) ==
LOC: ED 19:29
DX: K59.89 Other specified functional intestinal disorders (principal); Q61.01 Congenital single renal cyst; D71 Functional disorders of polymorphonuclear neutrophils; K44.9 Diaphragmatic hernia without obstruction or gangrene; R10.30 Lower abdominal pain, unspecified; R07.9 Chest pain, unspecified; R11.0 Nausea; E78.5 Hyperlipidemia, unspecified; J44.9 Chronic obstructive pulmonary disease, unspecified; K21.9 Gastro-esophageal reflux disease without esophagitis; Z72.0 Tobacco use; Z79.899 Other long term (current) drug therapy
CPT/HCPCS: 36000; 36415; 71045; 74177; 80053; 81015; 83690; 83880; 84484; 85025; 85379; 93005; 93041; 94760; 96374; 96375; 99284; J2270; J2405

== ENCOUNTER 2022-03-11 12:39 | Emergency (ER) | payer OTHER ==
[2022-03-11 13:24] LABS: Basophil (Absolute #) 0.02 x10^3/uL (0-0.4); Eosinophil % 2.4 % (0.00-5.0); Eosinophil (Absolute #) 0.13 x10^3/uL (0-0.5); Hematocrit 41.3 % (35-47); Hemoglobin 13.7 g/dL (12.0-16.0); Lymphocyte (Absolute #) 1.58 x10^3/uL (1.0-4.6); Lymphocytes % 28.9 % (24.0-44.0); Mean Cell Volume 96.3 fL (78-100); Mean Corpuscular Hemoglobin 31.9 pg (26-32); Mean Corpuscular Hgb Concent. 33.2 g/dL (32-36); Mean Platelet Volume 10.4 fL (7.5-11.0); Monocyte (Absolute #) 0.32 x10^3/uL (0.0-1.3); Monocytes % 5.9 % (0.0-12.0); Neutrophil % 62.2 % (36.0-66.0); Platelet Count 226 x10^3/uL (150-450); Red Blood Count 4.29 x10^6/uL (4.1-5.4); Red Cell Distribution Width 12.8 % (11.5-14.0); White Blood Count 5.5 x10^3/uL (4.0-10.5)
--- NOTE | 2022-03-11 13:24 | ERPHSYRPT ---
- History of Present Illness Time Seen by Provider: 03/11/22 12:50 Source: patient Exam Limitations: no limitations Patient Subjective Stated Complaint: PT HERE FOR TAKING A DOUBLE DOSE OF HER MORNING MEDS THIS MORNING, SHE STATES SHE FORGOT HER HAD TAKEN THEM. DENIES WANT ING TO HARM SELF Triage Nursing Assessment: PT DROWSY OPEN EYES WITH VERBAL STIMULI , RESP EASY, FACE MASK IN PLACE, SKIN W/D/P. NO EDEMA NOTED, Physician History: Patient is a 46-year-old female presents to the emergency department for evaluation. Patient states she inadvertently took 2 doses of her a.m. medications. Patient states she simply forgot that she had taken her original dose. Patient called poison control and they advised her to come to our ED for an evaluation. Patient denies feeling suicidal or homicidal. Patient is drowsy. Patient presents to our ED via EMS. Patient took double doses of her gabapentin Keppra, cymbalta and Ativan. Patient denies pain. Patient is somewhat drowsy. No nausea or vomiting. No diarrhea. No rash. No fever. Symptoms are mild in intensity. No specific worsening or improving factors. Patient voices no other complaints or concerns at this time. Timing/Duration: today Severity: mild Modifying Factors: Improves With: nothing Associated Symptoms: denies symptoms Allergies/Adverse Reactions: ca Allergy (Severe, Verified 03/11/22 12:48) Swelling pregabalin [From Lyrica] Allergy (Severe, Verified 03/11/22 12:48) Penicillins Allergy (Verified 03/11/22 12:48) Rash propoxyphene HCl [From Darvon] Allergy (Verified 03/11/22 12:48) PASS OUT morphine Adverse Reaction (Verified 03/11/22 12:48) can not take pill form Home Medications: Erenumab-Aooe [Aimovig Autoinjector] 170 mg IJ UD 02/20/19 [History] Propranolol HCl [Inderal 20 MG] 40 mg PO QHS 02/20/19 [History] levETIRAcetam [Levetiracetam] 1,000 mg PO BID 02/20/19 [History] Lorazepam 0.5 mg [Ativan 0.5 MG] 1 tab PO BID PRN 12/29/21 [History] Asenapine Maleate [Saphris] 5 mg PO QHS 01/08/22 [History] SUMAtriptan succinate [Imitrex 50 mg] 50 mg PO QDP PRN 01/08/22 [History] Hx Tetanus, Diphtheria Vaccination/Date Given: No Hx Influenza Vaccination/Date Given: Yes Hx Pneumococcal Vaccination/Date Given: No Immunizations Up to Date: Yes Travel Risk - International Travel Have you traveled outside of the country in past 3 weeks: No - Coronavirus Screening Are you exhibiting any of the following symptoms?: No - Vaccine Status Have you recieved a 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: Yes [employer]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 - Review of Systems Constitutional: No Symptoms, No Fever, No Chills Eyes: No Symptoms Ears, Nose, & Throat: No Symptoms Respiratory: No Symptoms, No Cough, No Dyspnea Cardiac: No Symptoms, No Chest Pain, No Edema, No Syncope Abdominal/Gastrointestinal: No Symptoms, No Abdominal Pain, No Nausea, No Vomiting, No Diarrhea Genitourinary Symptoms: No Symptoms, No Dysuria Musculoskeletal: No Symptoms, No Back Pain, No Neck Pain Skin: No Symptoms, No Rash Neurological: No Symptoms, No Dizziness, No Focal Weakness, No Sensory Changes Psychological: No Symptoms Endocrine: No Symptoms Hematologic/Lymphatic: No Symptoms Immunological/Allergic: No Symptoms All Other Systems: Reviewed and Negative - Past Medical History Pertinent Past Medical History: Yes Neurological History: Seizures ENT History: No Pertinent History Cardiac History: High Cholesterol Respiratory History: COPD Endocrine Medical History: Other Musculoskeletal History: Degenerative Disk Disease, Fibromyalgia GI Medical History: Esophageal Disorder, GERD History: No Pertinent History Psycho-Social History: Anxiety, Depression, Panic Disorder Female Reproductive Disorders: Abnormal Uterine Bleeding Other Medical History: Lupus, Neuropathy, DDD - Past Surgical History Past Surgical History: Yes Neuro Surgical History: No Pertinent History Cardiac: No Pertinent History Respiratory: No Pertinent History Gastrointestinal: No Pertinent History Genitourinary: No Pertinent History Musculoskeletal: Other Female Surgical History: Section, Tubal Ligation, Other Other Surgical History: ABLATION - TUBAL LIGATION. BILATERAL WRIST SURGERY. PLATE AND TWO SCREWS IN THE BACK OF NECK. 12/26/20 Surgery to back. cadaver bone in neck - Social History Smoking Status: Current every day smoker How long have you smoked: 30 years Exposure to second hand smoke: Yes Drug Use: none Patient Lives Alone: No - Female History Hx Last Menstrual Period: POST Hx Now: No - Nursing Vital Signs Nursing Vital Signs: Initial Vital Signs Pulse Rate 86 03/11/22 12:42 Respiratory Rate 18 03/11/22 12:42 Blood Pressure 139/82 03/11/22 12:42 O2 Sat by Pulse Oximetry 98 03/11/22 12:42 Pain Scale Pain Intensity 0 - Physical Exam General Appearance: no apparent distress, alert, other (Patient drowsy but easily awakes to verbal stimuli.) Eye Exam: PERRL/EOMI, eyes nml inspection Ears, Nose, Throat Exam: normal ENT inspection, TMs normal, pharynx normal, moist mucous membranes Neck Exam: normal inspection, non-tender, supple, full range of motion Respiratory Exam: normal breath sounds, lungs clear, airway intact, No respiratory distress Cardiovascular Exam: regular rate/rhythm, normal heart sounds, normal peripheral pulses Gastrointestinal/Abdomen Exam: soft, normal bowel sounds, No tenderness, No mass Back Exam: normal inspection, normal range of motion, No CVA tenderness, No vertebral tenderness Extremity Exam: normal inspection, normal range of motion, pelvis stable Neurologic Exam: alert, 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, cooperative, normal mood/affect, nml cerebellar function, nml station & gait, sensation nml, No motor deficits Skin Exam: normal color, warm, dry, No rash Lymphatic Exam: No adenopathy SpO2 Interpretation: normal SpO2: 98 O2 Delivery: Room Air - Course Nursing assessment & vital signs reviewed: Yes EKG Interpreted by Me: RATE ([id number]), Sinus Rhythm, NORMAL AXIS, NORMAL INTERVALS Ordered Tests: Active Orders 24 hr Category Date Time Status Research Contracts Supervisor STAT Care 03/11/22 13:07 Active EKG-ER Only STAT Care 03/11/22 13:06 Active IV Insertion STAT Care 03/11/22 13:06 Active ACETAMINOPHEN Stat Lab 03/11/22 12:05 Completed CBC W DIFF Stat Lab 03/11/22 12:05 Completed CMP Stat Lab 03/11/22 12:05 Completed ETHYL ALCOHOL Stat Lab 03/11/22 12:05 Completed HCG,QUALITATIVE URINE Stat Lab 03/11/22 14:16 Completed SALICYLATE Stat Lab 03/11/22 12:05 Completed UA W/RFX CULTURE Stat Lab 03/11/22 14:20 Completed Urine Triage Profile Stat Lab 03/11/22 14:16 Ordered Lab/Rad Data: Laboratory Result Diagrams 03/11/22 12:05 03/11/22 12:05 Laboratory Results 03/11/22 03/11/22 03/11/22 Range/Units 14:20 14:16 12:05 WBC (4.0-10.5) x10^3/uL RBC (4.1-5.4) x10^6/uL Hgb (12.0-16.0) g/dL Hct (35-47) % MCV (78-100) fL MCH (26-32) pg MCHC (32-36) g/dL RDW (11.5-14.0) % Plt Count (150-450) x10^3/uL MPV (7.5-11.0) fL Gran % (36.0-66.0) % Immature Gran % (Auto) (0.00-0.4) % Nucleat RBC Rel Count (0.00-0.1) % Eos # (Auto) (0-0.5) x10^3/uL Immature Gran # (Auto) (0.00-0.03) x10^3u/L Absolute Lymphs (auto) (1.0-4.6) x10^3/uL Absolute Monos (auto) (0.0-1.3) x10^3/uL Absolute Nucleated RBC (0.00-0.01) x10^3u/L Lymphocytes % (24.0-44.0) % Monocytes % (0.0-12.0) % Eosinophils % (0.00-5.0) % Basophils % (0.0-0.4) % Absolute Granulocytes (1.4-6.9) x10^3/uL Basophils # (0-0.4) x10^3/uL Sodium 140 (137-145) mmol/L Potassium 4.1 (3.5-5.1) mmol/L Chloride 107 (98-107) mmol/L Carbon Dioxide 25 (22-30) mmol/L Anion Gap 11.6 (5-15) MEQ/L BUN 15 (7-17) mg/dL Creatinine 0.64 (0.52-1.04) mg/dL Estimated GFR > 60.0 ML/MIN Glucose 97 (74-106) mg/dL Calcium 9.1 (8.4-10.2) mg/dL Total Bilirubin 0.30 (0.2-1.3) mg/dL AST 25 (14-36) U/L ALT 12 (0-35) U/L Alkaline Phosphatase 53 (38-126) U/L Serum Total Protein 6.6 (6.3-8.2) g/dL Albumin 3.8 (3.5-5.0) g/dL Urinalys Dipstick Clnc MAIN LAB Urine Color YELLOW (YELLOW) Urine Appearance CLEAR (CLEAR) Urine pH 7.0 (5-6) Ur Specific [place] >=1.030 (1.005-1.025) POC Urine Protein Conf NEGATIVE (Negative) Urine Ketones NEGATIVE (NEGATIVE) Urine Nitrite NEGATIVE (NEGATIVE) Urine Bilirubin NEGATIVE (NEGATIVE) Urine Urobilinogen 0.2 (0-1) mg/dL Urine Leukocytes NEGATIVE (NEGATIVE) Urine WBC (Auto) NONE (0-5) /HPF Urine RBC (Auto) NONE (0-2) /HPF U Epithel Cells (Auto) NONE (FEW) /HPF Urine Bacteria (Auto) NONE (NEGATIVE) /HPF Urine RBC TRACE-INTACT (0-5) Ross/ul Urine Mucus (Auto) SLIGHT (NEGATIVE) /HPF Ur Culture Indicated? NO Urine Glucose NEGATIVE (NEGATIVE) mg/dL Urine HCG, Qual NEGATIVE (Negative) Salicylates < 1.0 L (2-20) mg/dL Acetaminophen < 10 L (10-30) ug/ml Ethyl Alcohol < 10 (0-10) mg/dL 05/24/22 Range/Units 12:05 WBC 5.5 (4.0-10.5) x10^3/uL RBC 4.29 (4.1-5.4) x10^6/uL Hgb 13.7 (12.0-16.0) g/dL Hct 41.3 (35-47) % MCV 96.3 (78-100) fL MCH 31.9 (26-32) pg MCHC 33.2 (32-36) g/dL RDW 12.8 (11.5-14.0) % Plt Count 226 (150-450) x10^3/uL MPV 10.4 (7.5-11.0) fL Gran % 62.2 (36.0-66.0) % Immature Gran % (Auto) 0.2 (0.00-0.4) % Nucleat RBC Rel Count 0.0 (0.00-0.1) % Eos # (Auto) 0.13 (0-0.5) x10^3/uL Immature Gran # (Auto) 0.01 (0.00-0.03) x10^3u/L Absolute Lymphs (auto) 1.58 (1.0-4.6) x10^3/uL Absolute Monos (auto) 0.32 (0.0-1.3) x10^3/uL Absolute Nucleated RBC 0.00 (0.00-0.01) x10^3u/L Lymphocytes % 28.9 (24.0-44.0) % Monocytes % 5.9 (0.0-12.0) % Eosinophils % 2.4 (0.00-5.0) % Basophils % 0.4 (0.0-0.4) % Absolute Granulocytes 3.40 (1.4-6.9) x10^3/uL Basophils # 0.02 (0-0.4) x10^3/uL Sodium (137-145) mmol/L Potassium (3.5-5.1) mmol/L Chloride (98-107) mmol/L Carbon Dioxide (22-30) mmol/L Anion Gap (5-15) MEQ/L BUN (7-17) mg/dL Creatinine (0.52-1.04) mg/dL Estimated GFR ML/MIN Glucose (74-106) mg/dL Calcium (8.4-10.2) mg/dL Total Bilirubin (0.2-1.3) mg/dL AST (14-36) U/L ALT (0-35) U/L Alkaline Phosphatase (38-126) U/L Serum Total Protein (6.3-8.2) g/dL Albumin (3.5-5.0) g/dL Urinalys Dipstick Clnc Urine Color (YELLOW) Urine Appearance (CLEAR) Urine pH (5-6) Ur Specific [place] (1.005-1.025) POC Urine Protein Conf (Negative) Urine Ketones (NEGATIVE) Urine Nitrite (NEGATIVE) Urine Bilirubin (NEGATIVE) Urine Urobilinogen (0-1) mg/dL Urine Leukocytes (NEGATIVE) Urine WBC (Auto) (0-5) /HPF Urine RBC (Auto) (0-2) /HPF U Epithel Cells (Auto) (FEW) /HPF Urine Bacteria (Auto) (NEGATIVE) /HPF Urine RBC (0-5) Ross/ul Urine Mucus (Auto) (NEGATIVE) /HPF Ur Culture Indicated? Urine Glucose (NEGATIVE) mg/dL Urine HCG, Qual (Negative) Salicylates (2-20) mg/dL Acetaminophen (10-30) ug/ml Ethyl Alcohol (0-10) mg/dL - Progress Progress: improved Progress Note: Work-up negative. We contacted poison control. Poison control states patient may be observed in the ER until she reaches her baseline status. Patient reassessed. Patient sitting up she is alert. Patient eating conversant no acute distress. Patient states she wants to go home. Patient wants to smoke. Patient requesting to get out of bed. We will ambulate patient throughout our ED and observe whether or not she is stable and well enough to be discharged home. Patient states her is at home and will pick her up when notified. 03/11/22 15:33 Patient ambulated in our ED. Patient was stable independent. Patient walked up to the nursing station and requested discharge. Patient ambulated with RN who also observed patient's request Portions of this note were created with voice recognition technology. There may be grammatical, spelling, punctuation or sound alike errors 03/11/22 15:43 Counseled pt/family regarding: lab results, diagnosis, need for follow-up - Departure Departure Disposition: Home Clinical Impression: Accidental overdose Condition: Stable Critical Care Time: No Referrals: JUDY BLAND MD [Primary Care Provider] - Follow up/PCP as directed Additional Instructions: Discharge/Care Plan CESAR AGUSTIN was seen on 03/11/22 in the Emergency Room. The patient was counseled regarding Diagnosis,Lab results, Imaging studies, need for follow up and when to return to the Emergency Room. Prescriptions given: Discharge Note I have spoken with the patient and/or caregivers. I have explained the patient's condition, diagnosis and treatment plan based on the information available to me at this time. I have answered the patient's and/or caregiver's questions and addressed any concerns. The patient and/or caregivers have as good understanding of the patient's diagnosis, condition and treatment plan as can be expected at this point. The vital signs have been stable. The patient's condition is stable and appropriate for discharge from the emergency department. The patient will pursue further outpatient evaluation with the primary care physician or other designated or consulting physician as outlined in the discharge instructions. The patient and/or caregivers are agreeable to this plan of care and follow-up instructions have been explained in detail. The patient and/or caregivers have received these instruction. The patient/and or caregivers are aware that any significant change in condition or worsening of symptoms should prompt an immediate return to this or the closest emergency department or call 911.
[2022-03-11 13:50] LABS: ACETAMINOPHEN < 10 ug/ml (10-30); ALBUMIN 3.8 g/dL (3.5-5.0); ALKALINE PHOSPHATASE 53 U/L (38-126); ANION GAP 11.6 MEQ/L (5-15); BLOOD UREA NITROGEN 15 mg/dL (7-17); CHLORIDE 107 mmol/L (98-107); Calcium 9.1 mg/dL (8.4-10.2); Carbon Dioxide 25 mmol/L (22-30); Creatinine 1 0.64 mg/dL (0.52-1.04); EST GLOMERULAR FILTRATION RATE > 60.0 ML/MIN; ETHYL ALCOHOL < 10 mg/dL (0-10); Glucose 97 mg/dL (74-106); Potassium 4.1 mmol/L (3.5-5.1); SALICYLATE < 1.0 mg/dL (2-20); SGOT/AST 25 U/L (14-36); SGPT/ALT 12 U/L (0-35); SODIUM 140 mmol/L (137-145); Total Protein 6.6 g/dL (6.3-8.2)
[2022-03-11 14:28] LABS: Appearance CLEAR (CLEAR); Bilirubin NEGATIVE (NEGATIVE); Glucose NEGATIVE (NEGATIVE); Ketones NEGATIVE (NEGATIVE); Nitrite NEGATIVE (NEGATIVE); Protein,Urine Dip NEGATIVE (Negative); RBC TRACE-INTACT Ery/ul (0-5); Specific Gravity >=1.030 (1.005-1.025); Urobilinogen 0.2 mg/dL (0-1)
[2022-03-11 14:29] LABS: Dipstick done @ ? MAIN LAB; Mucus SLIGHT /HPF (NEGATIVE); Urine Cultured Indicated? NO
[2022-03-11 15:29] VITALS: O2SAT 98
[2022-03-11 16:16] LABS: Amphetamine,Urine NEGATIVE (NEGATIVE); Barbiturate,Urine NEGATIVE (NEGATIVE); Benzodiazepine,Urine NEGATIVE (NEGATIVE); Cocaine,Urine NEGATIVE (NEGATIVE); Methadone,Urine NEGATIVE (NEGATIVE); Opiate,Urine NEGATIVE (NEGATIVE); PCP,Urine NEGATIVE (NEGATIVE); THC,Urine NEGATIVE (NEGATIVE)
[2022-03-11 16:18] VITALS: BP 110/64; PULSE 76
== END 2022-03-11 16:27 | disposition home or self-care (01) ==
LOC: ED 12:39
DX: T42.6X1A Poisoning by other antiepileptic and sedative-hypnotic drugs, accidental (unintentional), initial encounter (principal); T42.4X1A Poisoning by benzodiazepines, accidental (unintentional), initial encounter; R40.0 Somnolence; E78.5 Hyperlipidemia, unspecified; J44.9 Chronic obstructive pulmonary disease, unspecified; G40.909 Epilepsy, unspecified, not intractable, without status epilepticus; Z79.899 Other long term (current) drug therapy; Z72.0 Tobacco use
CPT/HCPCS: 36000; 36415; 80053; 80307; 81015; 84703; 85025; 93005; 93041; 99284; G0480

== ENCOUNTER 2022-07-31 18:31 | Emergency (ER) | payer OTHER ==
[2022-07-31] MEDS ORDERED: Sodium Chloride 0.9% 1000 ML 1,000 ML IV STA (19:09)
[2022-07-31] MEDS ORDERED: TYLENOL 325 MG PO STA (19:09)
[2022-07-31] MEDS ORDERED: TORAdol 30 mg Injection IV ONE (19:10)
--- NOTE | 2022-07-31 19:15 | ERPHSYRPT ---
- History of Present Illness Time Seen by Provider: 07/31/22 18:41 Source: patient Exam Limitations: no limitations Patient Subjective Stated Complaint: C/O body aches to entire body. States she started running a fever this morning. Patient states she received the influenza vaccine and the COVID booster both yesterday. Symptoms of fever and body aches started today (early this morning). Triage Nursing Assessment: Patient brought back to ED in w/c. She is alert and oriented. No SOB. She is hot to touch and flushed. Patient is restless in bed. Physician History: 46-year-old female presented in the ER with chief complaint of right earache and fever chills. The patient reports she had a earache yesterday, was seen at urgent care, started on antibiotics and also received booster shot of COVID-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 and influenza vaccination. This morning she woke up with aches and pains all over, fever chills with a T-max of 102. She has been taking [id number] medications with no significant relief. Denies any cough or shortness of breath. Has nausea but no vomiting. Timing/Duration: abrupt onset, this morning Severity: moderate Prearrival Treatment: over the counter meds Associated Symptoms: fever, chills, headache, sore throat Allergies/Adverse Reactions: ca Allergy (Severe, Verified 07/31/22 18:54) Swelling pregabalin [From Lyrica] Allergy (Severe, Verified 07/31/22 18:54) Penicillins Allergy (Verified 07/31/22 18:54) Rash propoxyphene HCl [From Darvon] Allergy (Verified 07/31/22 18:54) PASS OUT morphine Adverse Reaction (Verified 07/31/22 18:54) can not take pill form Home Medications: Erenumab-Aooe [Aimovig Autoinjector] 170 mg IJ UD 02/20/19 [History] Propranolol HCl [Inderal 20 MG] 40 mg PO QHS 02/20/19 [History] levETIRAcetam [Levetiracetam] 1,000 mg PO BID 02/20/19 [History] Lorazepam 0.5 mg [Ativan 0.5 MG] 1 tab PO BID PRN 12/29/21 [History] Asenapine Maleate [Saphris] 5 mg PO QHS 01/08/22 [History] SUMAtriptan succinate [Imitrex 50 mg] 50 mg PO QDP PRN 01/08/22 [History] Hx Tetanus, Diphtheria Vaccination/Date Given: Yes Hx Influenza Vaccination/Date Given: Yes (07/30/22) Hx Pneumococcal Vaccination/Date Given: No Immunizations Up to Date: Yes Travel Risk - International Travel Have you traveled outside of the country in past 3 weeks: No - Coronavirus Screening Are you exhibiting any of the following symptoms?: Yes Symptoms: Fever, Headaches/Body Aches/Fatigue Close contact with a COVID-19 positive Pt in past 14-21 Days: No - Vaccine Status Have you recieved a 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: 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[employer]: [employer] - Vaccination Dates Date of 2cond Vaccination (if applicable): 2020 - Review of Systems Constitutional: Fever, Chills, Fatigue, Malaise, Weakness Eyes: No Symptoms Ears, Nose, & Throat: Throat Pain Respiratory: No Symptoms Cardiac: No Symptoms Abdominal/Gastrointestinal: Nausea Genitourinary Symptoms: No Symptoms Musculoskeletal: Myalgias Skin: No Symptoms Neurological: No Symptoms Psychological: No Symptoms Endocrine: No Symptoms Hematologic/Lymphatic: No Symptoms Immunological/Allergic: No Symptoms - Past Medical History Pertinent Past Medical History: Yes Neurological History: Seizures ENT History: No Pertinent History Cardiac History: High Cholesterol Respiratory History: COPD Endocrine Medical History: Other Musculoskeletal History: Degenerative Disk Disease, Fibromyalgia GI Medical History: Esophageal Disorder, GERD History: No Pertinent History Psycho-Social History: Anxiety, Depression, Panic Disorder Female Reproductive Disorders: Abnormal Uterine Bleeding Other Medical History: Lupus, Neuropathy, DDD - Past Surgical History Past Surgical History: Yes Neuro Surgical History: No Pertinent History Cardiac: No Pertinent History Respiratory: No Pertinent History Gastrointestinal: No Pertinent History Genitourinary: No Pertinent History Musculoskeletal: Other Female Surgical History: Section, Tubal Ligation, Other Other Surgical History: ABLATION - TUBAL LIGATION. BILATERAL WRIST SURGERY. PLATE AND TWO SCREWS IN THE BACK OF NECK. 12/26/20 Surgery to back. cadaver bone in neck - Social History Smoking Status: Current every day smoker How long have you smoked: 30 years Exposure to second hand smoke: Yes Drug Use: none Patient Lives Alone: No - Female History Hx Now: No - Nursing Vital Signs Nursing Vital Signs: Initial Vital Signs Temperature 101.7 F 07/31/22 18:54 Pulse Rate 101 H 07/31/22 18:54 Respiratory Rate 22 07/31/22 18:54 Blood Pressure 128/74 07/31/22 18:54 O2 Sat by Pulse Oximetry 97 07/31/22 18:54 Pain Scale Pain Intensity [Entire body] 10 Pain Intensity 5 - Physical Exam General Appearance: no apparent distress, alert Eye Exam: bilateral eye: normal inspection, PERRL, EOMI Ear Exam: bilateral ear: auricle normal, canal normal, TM normal Nasal Exam: normal inspection Throat Exam: normal, pharynx normal, pharynx swelling, No dental tenderness Neck Exam: normal inspection, non-tender, supple, full range of motion Cardiovascular/Respiratory Exam: normal breath sounds, regular rate/rhythm Abdominal Exam: non-tender, soft, No no organomegaly Neurologic Exam: alert, 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, cooperative, computational geneticist II-XII nml as tested Skin Exam: normal color SpO2 Interpretation: normal SpO2: 97 O2 Delivery: Room Air Ordered Tests: Active Orders 24 hr Category Date Time Status IV Insertion STAT Care 07/31/22 19:09 Active CHEST 1 VIEW (PORTABLE) Stat Exams 07/31/22 19:22 Taken BLOOD CULTURE Stat Lab 07/31/22 19:35 Received CBC W DIFF Stat Lab 07/31/22 19:30 Completed CMP Stat Lab 07/31/22 19:30 Completed Lactic Acid Stat Lab 07/31/22 19:27 Completed UA W/RFX CULTURE Stat Lab 07/31/22 19:15 Completed Medication Summary Discontinued Medications Generic Name Dose Route Start Last Admin Trade Name Manish PRN Reason Stop Dose Admin Acetaminophen 975 mg 07/31/22 19:09 07/31/22 19:39 Acetaminophen 325 Mg Tablet PO 07/31/22 19:10 975 mg STAT STA Administration Acetaminophen Confirm 07/31/22 19:35 Acetaminophen 325 Mg Tablet Administered 07/31/22 19:36 Dose 975 mg .ROUTE .STK-MED ONE Sodium Chloride 1,000 mls @ 999 mls/hr 07/31/22 19:09 07/31/22 20:42 Sodium Chloride 0.9% 1000 Ml IV 07/31/22 20:09 Infused .Q1H1M STA Infusion Sodium Chloride Confirm 07/31/22 19:35 Sodium Chloride 0.9% 1000 Ml Administered 07/31/22 19:36 Dose 1,000 mls @ ud .ROUTE .STK-MED ONE Ketorolac Tromethamine 30 mg 07/31/22 19:10 07/31/22 19:41 Ketorolac Tromethamine 30 Mg/Ml Inj IV 07/31/22 19:11 30 mg STAT ONE Administration Ketorolac Tromethamine Confirm 07/31/22 19:35 Ketorolac Tromethamine 30 Mg/Ml Inj Administered 07/31/22 19:36 Dose 30 mg .ROUTE .STK-MED ONE Lab/Rad Data: Laboratory Result Diagrams 07/31/22 19:30 07/31/22 19:30 Laboratory Results 07/31/22 07/31/22 07/31/22 Range/Units 19:35 19:35 19:30 WBC (4.0-10.5) x10^3/uL RBC (4.1-5.4) x10^6/uL Hgb (12.0-16.0) g/dL Hct (35-47) % MCV (78-100) fL MCH (26-32) pg MCHC (32-36) g/dL RDW (11.5-14.0) % Plt Count (150-450) x10^3/uL MPV (7.5-11.0) fL Gran % (36.0-66.0) % Immature Gran % (Auto) (0.00-0.4) % Nucleat RBC Rel Count (0.00-0.1) % Eos # (Auto) (0-0.5) x10^3/uL Immature Gran # (Auto) (0.00-0.03) x10^3u/L Absolute Lymphs (auto) (1.0-4.6) x10^3/uL Absolute Monos (auto) (0.0-1.3) x10^3/uL Absolute Nucleated RBC (0.00-0.01) x10^3u/L Lymphocytes % (24.0-44.0) % Monocytes % (0.0-12.0) % Eosinophils % (0.00-5.0) % Basophils % (0.0-0.4) % Absolute Granulocytes (1.4-6.9) x10^3/uL Basophils # (0-0.4) x10^3/uL Sodium 136 L (137-145) mmol/L Potassium 3.5 (3.5-5.1) mmol/L Chloride 103 (98-107) mmol/L Carbon Dioxide 27 (22-30) mmol/L Anion Gap 9.5 (5-15) MEQ/L BUN 14 (7-17) mg/dL Creatinine 0.80 (0.52-1.04) mg/dL Estimated GFR > 60.0 ML/MIN Glucose 96 (74-106) mg/dL Lactic Acid (0.4-2.0) Calcium 8.8 (8.4-10.2) mg/dL Total Bilirubin 0.50 (0.2-1.3) mg/dL AST 21 (14-36) U/L ALT 13 (0-35) U/L Alkaline Phosphatase 65 (38-126) U/L Serum Total Protein 7.5 (6.3-8.2) g/dL Albumin 4.4 (3.5-5.0) g/dL Urinalys Dipstick Clnc Urine Color (YELLOW) Urine Appearance (CLEAR) Urine pH (5-6) Ur Specific Powers (1.005-1.025) POC Urine Protein Conf (Negative) Urine Ketones (NEGATIVE) Urine Nitrite (NEGATIVE) Urine Bilirubin (NEGATIVE) Urine Urobilinogen (0-1) mg/dL Urine Leukocytes (NEGATIVE) Urine WBC (Auto) (0-5) /HPF Urine RBC (Auto) (0-2) /HPF U Epithel Cells (Auto) (FEW) /HPF Urine Bacteria (Auto) (NEGATIVE) /HPF Urine RBC (0-5) Ross/ul Urine Mucus (Auto) (NEGATIVE) /HPF Ur Culture Indicated? Urine Glucose (NEGATIVE) mg/dL Influenza Type A Ag NEGATIVE (NEGATIVE) Influenza Type B Ag NEGATIVE (NEGATIVE) RSV (PCR) NEGATIVE (Negative) SARS-CoV-2 (PCR) NEGATIVE (NEGATIVE) Group A Strep Antibody NOT DETECTED (NEGATIVE) 07/31/22 07/31/22 07/31/22 Range/Units 19:30 19:27 19:15 WBC 8.4 (4.0-10.5) x10^3/uL RBC 4.16 (4.1-5.4) x10^6/uL Hgb 13.6 (12.0-16.0) g/dL Hct 40.0 (35-47) % MCV 96.2 (78-100) fL MCH 32.7 H (26-32) pg MCHC 34.0 (32-36) g/dL RDW 12.7 (11.5-14.0) % Plt Count 308 (150-450) x10^3/uL MPV 9.9 (7.5-11.0) fL Gran % 79.4 H (36.0-66.0) % Immature Gran % (Auto) 0.4 (0.00-0.4) % Nucleat RBC Rel Count 0.0 (0.00-0.1) % Eos # (Auto) 0.02 (0-0.5) x10^3/uL Immature Gran # (Auto) 0.03 (0.00-0.03) x10^3u/L Absolute Lymphs (auto) 1.08 (1.0-4.6) x10^3/uL Absolute Monos (auto) 0.55 (0.0-1.3) x10^3/uL Absolute Nucleated RBC 0.00 (0.00-0.01) x10^3u/L Lymphocytes % 12.8 L (24.0-44.0) % Monocytes % 6.5 (0.0-12.0) % Eosinophils % 0.2 (0.00-5.0) % Basophils % 0.7 (0.0-0.4) % Absolute Granulocytes 6.69 (1.4-6.9) x10^3/uL Basophils # 0.06 (0-0.4) x10^3/uL Sodium (137-145) mmol/L Potassium (3.5-5.1) mmol/L Chloride (98-107) mmol/L Carbon Dioxide (22-30) mmol/L Anion Gap (5-15) MEQ/L BUN (7-17) mg/dL Creatinine (0.52-1.04) mg/dL Estimated GFR ML/MIN Glucose (74-106) mg/dL Lactic Acid 1.0 (0.4-2.0) Calcium (8.4-10.2) mg/dL Total Bilirubin (0.2-1.3) mg/dL AST (14-36) U/L ALT (0-35) U/L Alkaline Phosphatase (38-126) U/L Serum Total Protein (6.3-8.2) g/dL Albumin (3.5-5.0) g/dL Urinalys Dipstick Clnc MAIN LAB Urine Color YELLOW (YELLOW) Urine Appearance CLEAR (CLEAR) Urine pH 7.0 (5-6) Ur Specific Powers 1.025 (1.005-1.025) POC Urine Protein Conf NEGATIVE (Negative) Urine Ketones NEGATIVE (NEGATIVE) Urine Nitrite NEGATIVE (NEGATIVE) Urine Bilirubin NEGATIVE (NEGATIVE) Urine Urobilinogen 0.2 (0-1) mg/dL Urine Leukocytes NEGATIVE (NEGATIVE) Urine WBC (Auto) 0-2 (0-5) /HPF Urine RBC (Auto) 6-10 (0-2) /HPF U Epithel Cells (Auto) RARE (FEW) /HPF Urine Bacteria (Auto) NONE (NEGATIVE) /HPF Urine RBC NEGATIVE (0-5) Ross/ul Urine Mucus (Auto) SLIGHT (NEGATIVE) /HPF Ur Culture Indicated? NO Urine Glucose NEGATIVE (NEGATIVE) mg/dL Influenza Type A Ag (NEGATIVE) Influenza Type B Ag (NEGATIVE) RSV (PCR) (Negative) SARS-CoV-2 (PCR) (NEGATIVE) Group A Strep Antibody (NEGATIVE) - Progress Progress: improved Progress Note: 07/31/22 21:16 46-year-old is evaluated for fever chills with generalized body aches. She is given fluids along with symptomatic treatment, on reevaluation feeling better. Temperature improved. Work-up grossly unremarkable. No obvious focus of infection. I believe patient has viral etiology symptoms plus a combination of side effects from COVID vaccination/influenza vaccination. Recommended supportive/symptomatic care and outpatient follow-up. Discussed signs symptoms of worsening needing return to ER which she seems understanding. Stable for discharge. Counseled pt/family regarding: lab results, diagnosis, need for follow-up, rad results - Departure Departure Disposition: Home Clinical Impression: Viral syndrome, Side effect of medication Condition: Stable Critical Care Time: No Referrals: JDUY BLAND MD [Primary Care Provider] - Follow up/PCP as directed Instructions: Viral Syndrome (DC) Additional Instructions: Take Tylenol/ibuprofen as needed for aches and pains/fever chills every 4 hours as needed. Drink plenty of fluids to keep yourself well-hydrated. Follow-up wi th primary care for reevaluation. Return to ER for any worsening.
[2022-07-31] MEDS ORDERED: TYLENOL 325 MG ONE (19:35)
[2022-07-31] MEDS ORDERED: TORAdol 30 mg Injection ONE (19:35)
[2022-07-31] MEDS ORDERED: Sodium Chloride 0.9% 1000 ML 1,000 ML ONE (19:35)
[2022-07-31 19:48] LABS: Absolute Neutrophil Ct (ANC) 6.69 x10^3/uL (1.4-6.9); Basophil (Absolute #) 0.06 x10^3/uL (0-0.4); Eosinophil % 0.2 % (0.00-5.0); Eosinophil (Absolute #) 0.02 x10^3/uL (0-0.5); Hemoglobin 13.6 g/dL (12.0-16.0); Lymphocyte (Absolute #) 1.08 x10^3/uL (1.0-4.6); Lymphocytes % 12.8 % (24.0-44.0); Mean Cell Volume 96.2 fL (78-100); Mean Corpuscular Hemoglobin 32.7 pg (26-32); Mean Platelet Volume 9.9 fL (7.5-11.0); Monocyte (Absolute #) 0.55 x10^3/uL (0.0-1.3); Monocytes % 6.5 % (0.0-12.0); Neutrophil % 79.4 % (36.0-66.0); Platelet Count 308 x10^3/uL (150-450); Red Blood Count 4.16 x10^6/uL (4.1-5.4); Red Cell Distribution Width 12.7 % (11.5-14.0); White Blood Count 8.4 x10^3/uL (4.0-10.5)
[2022-07-31 19:56] LABS: Appearance CLEAR (CLEAR)
[2022-07-31 19:57] LABS: Bilirubin NEGATIVE (NEGATIVE); Dipstick done @ ? MAIN LAB; Glucose NEGATIVE (NEGATIVE); Ketones NEGATIVE (NEGATIVE); Nitrite NEGATIVE (NEGATIVE); Protein,Urine Dip NEGATIVE (Negative); RBC NEGATIVE Ery/ul (0-5); Specific Gravity 1.025 (1.005-1.025); Urobilinogen 0.2 mg/dL (0-1)
[2022-07-31 20:03] LABS: Epithelial Cells RARE /HPF (FEW); Mucus SLIGHT /HPF (NEGATIVE); WBC 0-2 /HPF (0-5)
[2022-07-31 20:16] LABS: Urine Cultured Indicated? NO
[2022-07-31 20:25] LABS: INFLUENZA A NEGATIVE (NEGATIVE); INFLUENZA B NEGATIVE (NEGATIVE); RESPIRATORY SYNCTIAL VIRUS NEGATIVE (Negative); SARS-CoV-2 Xpert Express NEGATIVE (NEGATIVE)
[2022-07-31 20:27] LABS: ALBUMIN 4.4 g/dL (3.5-5.0); ALKALINE PHOSPHATASE 65 U/L (38-126); ANION GAP 9.5 MEQ/L (5-15); BLOOD UREA NITROGEN 14 mg/dL (7-17); CHLORIDE 103 mmol/L (98-107); Calcium 8.8 mg/dL (8.4-10.2); Carbon Dioxide 27 mmol/L (22-30); EST GLOMERULAR FILTRATION RATE > 60.0 ML/MIN; Glucose 96 mg/dL (74-106); Potassium 3.5 mmol/L (3.5-5.1); SGOT/AST 21 U/L (14-36); SGPT/ALT 13 U/L (0-35); SODIUM 136 mmol/L (137-145); Total Protein 7.5 g/dL (6.3-8.2)
[2022-07-31 21:06] VITALS: BP 106/59; PULSE 94
[2022-07-31 21:19] VITALS: O2SAT 97
--- NOTE | 2022-08-01 08:46 | XRAY ---
Indication: Fever. Comparison: January 22, 2022 Portable chest again demonstrates normal heart and lungs. Bony thorax intact again with lower cervical fusion hardware. No new/acute findings.
== END 2022-07-31 21:27 | disposition home or self-care (01) ==
LOC: ED 18:31
DX: B34.9 Viral infection, unspecified (principal); T50.B95A Adverse effect of other viral vaccines, initial encounter; R50.9 Fever, unspecified; H92.01 Otalgia, right ear; Z79.899 Other long term (current) drug therapy; R51.9 Headache, unspecified; R53.1 Weakness; M79.10 Myalgia, unspecified site
CPT/HCPCS: 0241U; 36000; 36415; 71045; 80053; 81015; 83605; 85025; 87040; 87651; 96360; 96374; 99284; J1885; A9270-GY

== ENCOUNTER 2022-08-24 10:50 | Emergency (ER) | payer OTHER ==
[2022-08-24] MEDS ORDERED: XYLOCAINE 1% HCL 20 ML MDV IJ ONE (11:02)
[2022-08-24] MEDS ORDERED: BACIGUENT PACKET TP ONE (11:03)
[2022-08-24] MEDS ORDERED: BACIGUENT PACKET ONE (11:04)
[2022-08-24] MEDS ORDERED: XYLOCAINE 1% HCL 20 ML MDV ONE ×2 (11:04→11:16)
[2022-08-24] MEDS ORDERED: Rocephin 1000 MG INJ IM ONE (11:10)
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
[2022-08-24] MEDS ORDERED: Rocephin 1000 MG INJ ONE (11:16)
[2022-08-24 11:39] VITALS: BP 125/76; PULSE 76; O2SAT 98
--- NOTE | 2022-08-24 18:29 | XRAY ---
Indication: Puncture wound. Comparison: None 3 view right forearm demonstrates normal bones, articulation, and soft tissues. Specifically negative for radiopaque foreign body.
== END 2022-08-24 11:49 | disposition home or self-care (01) ==
LOC: ED 10:50
DX: S51.841A Puncture wound with foreign body of right forearm, initial encounter (principal); W20.8XXA Other cause of strike by thrown, projected or falling object, initial encounter; S50.11XA Contusion of right forearm, initial encounter; E78.5 Hyperlipidemia, unspecified; J44.9 Chronic obstructive pulmonary disease, unspecified; Z72.0 Tobacco use; Z79.899 Other long term (current) drug therapy
CPT/HCPCS: 73090; 96372; 99283; J0696; A9270-GY

== ENCOUNTER 2022-09-10 16:29 | Emergency (ER) | payer OTHER ==
[2022-09-10] MEDS ORDERED: BENADRYL 50 MG/ML IV ONE (17:11)
[2022-09-10] MEDS ORDERED: TORAdol 30 mg Injection IV ONE (17:11)
[2022-09-10] MEDS ORDERED: Reglan 10 MG/2 ML IV ONE (17:11)
[2022-09-10] MEDS ORDERED: Sodium Chloride 0.9% 1000 ML 1,000 ML IV STA (17:11)
[2022-09-10] MEDS ORDERED: TYLENOL 325 MG PO ONE (17:11)
[2022-09-10] MEDS ORDERED: BENADRYL 50 MG/ML ONE (17:38)
[2022-09-10] MEDS ORDERED: Reglan 10 MG/2 ML ONE (17:38)
[2022-09-10] MEDS ORDERED: TYLENOL 325 MG ONE (17:39)
[2022-09-10] MEDS ORDERED: Sodium Chloride 0.9% 1000 ML 1,000 ML ONE (17:39)
[2022-09-10] MEDS ORDERED: TORAdol 30 mg Injection ONE (17:39)
--- NOTE | 2022-09-10 18:24 | ERPHSYRPT ---
- History of Present Illness Time Seen by Provider: 09/10/22 16:37 Source: patient Exam Limitations: no limitations Patient Subjective Stated Complaint: Pt states "I woke up this morning and my hands were sore and tingly and then I got a massive headache and I cannot turn my head to the right. everything is stiff." Triage Nursing Assessment: Pt prsented alert and oriented X 3, skin pwd. PT moves with a stiff gait, able to speak in clear full sentences pt in no apparent respiratory distress. Physician History: 46-year-old female with history of migraine on multiple medications needing monthly injection presented in the ER with chief complaint of right-sided headache since morning. Patient reports she woke up this morning with tingling sensation in both hands and left side of face followed by moderate to severe sharp throbbing headache, aggravated with movements and also some radiation to the neck area. Patient denies any numbness tingling weakness currently. He reports associated nausea but no vomiting. Headache is similar to previous but is not getting any better with her routine medication. Denies any visual disturbance or difficulty speech. Timing/Duration: today, constant, sudden, worse Quality: sharpness Head Pain Location: frontal Severity of Pain-Max: severe Severity of Pain-Current: moderate Recent Head Trauma: frequent headaches Associated Symptoms: facial pain, nausea/vomiting, neck pain, No confusion, No fatigue, No fever/chills, No loss of consciousness, No nasal congestion, No nasal drainage, No numbness in legs/feet, No sweating, No sensitive to light, No speech problems, No stiff neck, No trouble walking, No vision changes, No visual disturbance, No weakness Previous symptoms: same symptoms as today Allergies/Adverse Reactions: ca Allergy (Severe, Verified 07/31/22 18:54) Swelling pregabalin [From Lyrica] Allergy (Severe, Verified 07/31/22 18:54) Penicillins Allergy (Verified 07/31/22 18:54) Rash propoxyphene HCl [From Darvon] Allergy (Verified 07/31/22 18:54) PASS OUT morphine Adverse Reaction (Verified 07/31/22 18:54) can not take pill form Home Medications: Erenumab-Aooe [Aimovig Autoinjector] 170 mg IJ UD 02/20/19 [History] Propranolol HCl [Inderal 20 MG] 40 mg PO QHS 02/20/19 [History] levETIRAcetam [Levetiracetam] 1,000 mg PO BID 02/20/19 [History] Lorazepam 0.5 mg [Ativan 0.5 MG] 1 tab PO BID PRN 12/29/21 [History] Asenapine Maleate [Saphris] 5 mg PO QHS 01/08/22 [History] SUMAtriptan succinate [Imitrex 50 mg] 50 mg PO QDP PRN 01/08/22 [History] Hx Tetanus, Diphtheria Vaccination/Date Given: Yes Hx Influenza Vaccination/Date Given: Yes (07/30/22) Hx Pneumococcal Vaccination/Date Given: No Immunizations Up to Date: Yes Travel Risk - International Travel Have you traveled outside of the country in past 3 weeks: No - Coronavirus Screening Are you exhibiting any of the following symptoms?: No Close contact with a COVID-19 positive Pt in past 14-21 Days: No - Vaccine Status Have you recieved a 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: Yes 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[employer] - Vaccination Dates Date of 2cond Vaccination (if applicable): 2020 - Review of Systems Constitutional: No Symptoms Eyes: No Symptoms Ears, Nose, & Throat: No Symptoms Respiratory: No Symptoms Cardiac: No Symptoms Abdominal/Gastrointestinal: No Symptoms Genitourinary Symptoms: No Symptoms Musculoskeletal: No Symptoms Skin: No Symptoms Neurological: Headache Psychological: No Symptoms Endocrine: No Symptoms Hematologic/Lymphatic: No Symptoms Immunological/Allergic: No Symptoms - Past Medical History Pertinent Past Medical History: Yes Neurological History: Seizures ENT History: No Pertinent History Cardiac History: High Cholesterol Respiratory History: COPD Endocrine Medical History: Other Musculoskeletal History: Degenerative Disk Disease, Fibromyalgia GI Medical History: Esophageal Disorder, GERD History: No Pertinent History Psycho-Social History: Anxiety, Depression, Panic Disorder Female Reproductive Disorders: Abnormal Uterine Bleeding Other Medical History: Lupus, Neuropathy, DDD - Past Surgical History Past Surgical History: Yes Neuro Surgical History: No Pertinent History Cardiac: No Pertinent History Respiratory: No Pertinent History Gastrointestinal: No Pertinent History Genitourinary: No Pertinent History Musculoskeletal: Other Female Surgical History: Section, Tubal Ligation, Other Other Surgical History: ABLATION - TUBAL LIGATION. BILATERAL WRIST SURGERY. PLATE AND TWO SCREWS IN THE BACK OF NECK. 12/26/20 Surgery to back. cadaver bone in neck - Social History Smoking Status: Current every day smoker How long have you smoked: 30 years Exposure to second hand smoke: Yes Drug Use: none Patient Lives Alone: No - Female History Hx Last Menstrual Period: ablasion Hx Now: No - Nursing Vital Signs Nursing Vital Signs: Initial Vital Signs Temperature 98.0 F 09/10/22 16:37 Pulse Rate 82 09/10/22 16:37 Respiratory Rate 20 09/10/22 16:37 Blood Pressure 131/88 09/10/22 16:37 O2 Sat by Pulse Oximetry 98 09/10/22 16:37 Pain Scale Pain Intensity 9 - Physical Exam General Appearance: no apparent distress, alert Eye Exam: PERRL/EOMI, eyes nml inspection Ears, Nose, Throat Exam: normal ENT inspection, TMs normal, pharynx normal, moist mucous membranes Neck Exam: normal inspection, full range of motion Respiratory Exam: normal breath sounds, lungs clear Cardiovascular Exam: regular rate/rhythm, normal heart sounds Gastrointestinal/Abdominal Exam: soft, normal bowel sounds, No tenderness Back Exam: normal inspection, normal range of motion Extremity Exam: normal inspection Mental Status Exam: alert, 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, cooperative, No depressed affect fact checker Exam: normal hearing, normal speech, PERRL Coordination/Gait Exam: normal finger to nose, normal gait, normal cerebellar function, negative Romberg's sign Motor/Sensory Exam: no motor deficit, no sensory deficit, negative Babinski's sign DTR Exam: bicep (R): 2+, bicep (L): 2+, knee (R): 2+, knee (L): 2+ Skin Exam: normal color SpO2 Interpretation: normal SpO2: 98 O2 Delivery: Room Air Ordered Tests: Active Orders 24 hr Category Date Time Status IV Insertion STAT Care 09/10/22 17:11 Completed Medication Summary Discontinued Medications Generic Name Dose Route Start Last Admin Trade Name Manish PRN Reason Stop Dose Admin Acetaminophen 975 mg 09/10/22 17:11 09/10/22 18:07 Acetaminophen 325 Mg Tablet PO 09/10/22 17:12 975 mg STAT ONE Administration Acetaminophen Confirm 09/10/22 17:39 Acetaminophen 325 Mg Tablet Administered 09/10/22 17:40 Dose 975 mg .ROUTE .STK-MED ONE Diphenhydramine HCl 25 mg 09/10/22 17:11 09/10/22 18:13 Diphenhydramine Hcl 50 Mg/Ml Vial IV 09/10/22 17:12 25 mg STAT ONE Administration Diphenhydramine HCl Confirm 09/10/22 17:38 Diphenhydramine Hcl 50 Mg/Ml Vial Administered 09/10/22 17:39 Dose 50 mg .ROUTE .STK-MED ONE Sodium Chloride 1,000 mls @ 999 mls/hr 09/10/22 17:11 09/10/22 18:08 Sodium Chloride 0.9% 1000 Ml IV 09/10/22 18:11 999 mls/hr .Q1H1M STA Administration Sodium Chloride Confirm 09/10/22 17:39 Sodium Chloride 0.9% 1000 Ml Administered 09/10/22 17:40 Dose 1,000 mls @ ud .ROUTE .STK-MED ONE Ketorolac Tromethamine 30 mg 09/10/22 17:11 09/10/22 18:11 Ketorolac Tromethamine 30 Mg/Ml Inj IV 09/10/22 17:12 30 mg STAT ONE Administration Ketorolac Tromethamine Confirm 09/10/22 17:39 Ketorolac Tromethamine 30 Mg/Ml Inj Administered 09/10/22 17:40 Dose 30 mg .ROUTE .STK-MED ONE Metoclopramide HCl 10 mg 09/10/22 17:11 09/10/22 18:14 Metoclopramide Hcl 10 Mg/2 Ml Vial IV 09/10/22 17:12 10 mg STAT ONE Administration Metoclopramide HCl Confirm 09/10/22 17:38 Metoclopramide Hcl 10 Mg/2 Ml Vial Administered 09/10/22 17:39 Dose 10 mg .ROUTE .STK-MED ONE - Progress Progress: improved Air Movement: good Progress Note: 09/10/22 18:52 She is given fluids and migraine cocktail, on reevaluation feeling better. Has nonfocal neuro exam throughout stay in the ER. Do not think she needs imaging or any other work-up and is stable for discharge. Recommended continue with current medication and follow-up with primary care and neurology for reevaluation. Discussed signs symptoms of worsening needing return to ER which she seems understanding. Blood Culture(s) Obtained: No Antibiotics given: No Counseled pt/family regarding: diagnosis, need for follow-up - Departure Departure Disposition: Home Clinical Impression: Migraine Condition: Stable Critical Care Time: No Referrals: JUDY BLAND MD [Primary Care Provider] - Follow Up with PCP/3 days Instructions: Headache, Adult (DC) Additional Instructions: Continue with your current home medications for migraine. Follow-up with your primary care and neurology for reevaluation. Return to ER for worsening headache, numbness tingling focal weakness, difficulty speech or visual disturbance etc.
[2022-09-10 19:18] VITALS: BP 156/76; PULSE 90
[2022-09-11 13:37] VITALS: O2SAT 98
== END 2022-09-10 19:19 | disposition home or self-care (01) ==
LOC: ED 16:29
DX: G43.909 Migraine, unspecified, not intractable, without status migrainosus (principal); R20.2 Paresthesia of skin; M54.2 Cervicalgia; R11.0 Nausea; E78.5 Hyperlipidemia, unspecified; Z72.0 Tobacco use; Z79.899 Other long term (current) drug therapy
CPT/HCPCS: 36000; 96374; 96375; 99284; J1200; J1885; A9270-GY

== ENCOUNTER 2022-11-01 15:26 | Emergency (ER) | payer OTHER ==
--- NOTE | 2022-11-01 15:39 | ERPHSYRPT ---
- History of Present Illness Time Seen by Provider: 11/01/22 15:39 Historian: patient Exam Limitations: no limitations Physician History: This is a 46-year-old white female whose had a history of section and bilateral tubal ligation in the past and a history of abnormal uterine bleeding and presents with sudden onset (30 minutes prior to arrival) of right lower quadrant abdominal pain when she went to urinate in the bathroom. Patient now states that she has not had any vaginal bleeding in several years. She says she feels little nauseated but she thinks is from the pain. She has not had any vomiting she denies diarrhea. She has never had anything like this before. She had a CAT scan of the abdomen pelvis on January 22, 2022 and there was no acute fin dings. Patient has a history of seizure disorder, hyperlipidemia, COPD, degenerative disc disease, fibromyalgia, panic disorder, neuropathy and lupus. Although morphine is listed as one of her drug allergies, patient specifically states that she has had Dilaudid in the past without any problems. Timing/Duration: today Activities at Onset: none Abdominal Pain Onset Location: RLQ Pain Radiation: no radiation Severity of Pain-Max: moderate Severity of Pain-Current: moderate Modifying Factors: Improves With: nothing Associated Symptoms: nausea, vomiting, No chest pain, No neck pain, No shortness of breath Previous symptoms: no prior history Allergies/Adverse Reactions: ca Allergy (Severe, Verified 11/01/22 15:44) Swelling pregabalin [From Lyrica] Allergy (Severe, Verified 11/01/22 15:44) Penicillins Allergy (Verified 11/01/22 15:44) Rash propoxyphene HCl [From Darvon] Allergy (Verified 11/01/22 15:44) PASS OUT morphine Adverse Reaction (Verified 11/01/22 15:44) can not take pill form Home Medications: Erenumab-Aooe [Aimovig Autoinjector] 170 mg IJ UD 02/20/19 [History] Propranolol HCl [Inderal 20 MG] 40 mg PO QHS 02/20/19 [History] levETIRAcetam [Levetiracetam] 1,000 mg PO BID 02/20/19 [History] Lorazepam 0.5 mg [Ativan 0.5 MG] 1 tab PO BID PRN 12/29/21 [History] Asenapine Maleate [Saphris] 5 mg PO QHS 01/08/22 [History] SUMAtriptan succinate [Imitrex 50 mg] 50 mg PO QDP PRN 01/08/22 [History] Hx Tetanus, Diphtheria Vaccination/Date Given: Yes Hx Influenza Vaccination/Date Given: Yes (07/30/22) Hx Pneumococcal Vaccination/Date Given: No Travel Risk - International Travel Have you traveled outside of the country in past 3 weeks: No - Coronavirus Screening Are you exhibiting any of the following symptoms?: No Close contact with a COVID-19 positive Pt in past 14-21 Days: No - Vaccine Status Have you recieved a 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: 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[employer] - Vaccination Dates Date of 2cond Vaccination (if applicable): 2020 - Review of Systems Constitutional: No Symptoms Eyes: No Symptoms Ears, Nose, & Throat: No Symptoms Respiratory: No Symptoms Cardiac: No Symptoms Abdominal/Gastrointestinal: Abdominal Pain (Sudden onset of right lower quadrant abdominal pain with associated nausea and vomiting), Nausea, Vomiting Genitourinary Symptoms: No Symptoms Musculoskeletal: No Symptoms Skin: No Symptoms Neurological: No Symptoms Psychological: No Symptoms Endocrine: No Symptoms Hematologic/Lymphatic: No Symptoms Immunological/Allergic: No Symptoms All Other Systems: Reviewed and Negative - Past Medical History Pertinent Past Medical History: Yes Neurological History: Seizures ENT History: No Pertinent History Cardiac History: High Cholesterol Respiratory History: COPD Endocrine Medical History: Other Musculoskeletal History: Degenerative Disk Disease, Fibromyalgia GI Medical History: Esophageal Disorder, GERD History: No Pertinent History Psycho-Social History: Anxiety, Depression, Panic Disorder Female Reproductive Disorders: Abnormal Uterine Bleeding Other Medical History: Lupus, Neuropathy, DDD - Past Surgical History Past Surgical History: Yes Neuro Surgical History: No Pertinent History Cardiac: No Pertinent History Respiratory: No Pertinent History Gastrointestinal: No Pertinent History Genitourinary: No Pertinent History Musculoskeletal: Other Female Surgical History: Section, Tubal Ligation, Other Other Surgical History: ABLATION - TUBAL LIGATION. BILATERAL WRIST SURGERY. PLATE AND TWO SCREWS IN THE BACK OF NECK. 12/26/20 Surgery to back. cadaver bone in neck - Social History Smoking Status: Current every day smoker How long have you smoked: 30 years Exposure to second hand smoke: Yes Drug Use: none Patient Lives Alone: No - Nursing Vital Signs Nursing Vital Signs: Initial Vital Signs Temperature 98.3 F 11/01/22 15:45 Pulse Rate 96 H 11/01/22 15:45 Respiratory Rate 18 11/01/22 15:45 Blood Pressure 102/90 11/01/22 15:45 O2 Sat by Pulse Oximetry 98 11/01/22 15:45 Pain Scale Pain Intensity 5 - Physical Exam General Appearance: mild distress, alert, anxiety Eye Exam: PERRL/EOMI, eyes nml inspection Ears, Nose, Throat Exam: normal ENT inspection, moist mucous membranes Neck Exam: normal inspection, non-tender, supple, full range of motion Respiratory Exam: normal breath sounds, lungs clear, airway intact, No chest tenderness, No respiratory distress Cardiovascular Exam: regular rate/rhythm, normal heart sounds, normal peripheral pulses Gastrointestinal/Abdomen Exam: soft, normal bowel sounds, tenderness (Right lower quadrant to palpation), guarding (Right lower quadrant to palpation), r ebound (Right lower quadrant to palpation) Pelvic Exam: not done, No vaginal bleeding Rectal Exam: not done Back Exam: normal inspection, normal range of motion, No CVA tenderness, No vertebral tenderness Extremity Exam: normal inspection, normal range of motion, pelvis stable Neurologic Exam: alert, 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, cooperative, machine packager II-XII nml as tested, normal mood/affect, nml cerebellar function, nml station & gait, sensation nml Skin Exam: normal color, warm, dry Lymphatic Exam: No adenopathy SpO2 Interpretation: normal O2 Delivery: Room Air - Course Nursing assessment & vital signs reviewed: Yes Ordered Tests: Active Orders 24 hr Category Date Time Status Enema STAT Care 11/01/22 17:29 Ordered IV Insertion STAT Care 11/01/22 16:08 Active ABDOMEN AND PELVIS W/0 CONTRAS [CT] Stat Exams 11/01/22 16:08 Taken AMYLASE Stat Lab 11/01/22 16:20 Completed CBC W DIFF Stat Lab 11/01/22 16:20 Completed CMP Stat Lab 11/01/22 16:20 Completed CULTURE,URINE Stat Lab 11/01/22 16:27 Received LIPASE Stat Lab 11/01/22 16:20 Completed UA W/RFX UR CULTURE Stat Lab 11/01/22 16:27 Completed Medication Summary Discontinued Medications Generic Name Dose Route Start Last Admin Trade Name Freq PRN Reason Stop Dose Admin Hydromorphone HCl 1 mg 11/01/22 16:08 11/01/22 16:32 Hydromorphone 1 Mg/1ml Inj 1 Mg/Ml Syringe IV 11/01/22 16:09 1 mg STAT ONE Administration Hydromorphone HCl Confirm 11/01/22 16:30 Hydromorphone 1 Mg/1ml Inj 1 Mg/Ml Syringe Administered 11/01/22 16:31 Dose 1 mg .ROUTE .STK-MED ONE Sodium Chloride 1,000 mls @ 999 mls/hr 11/01/22 16:08 11/01/22 16:31 Sodium Chloride 0.9% 1000 Ml IV 11/01/22 17:08 999 mls/hr .Q1H1M STA Administration Sodium Chloride Confirm 11/01/22 16:30 Sodium Chloride 0.9% 1000 Ml Administered 11/01/22 16:31 Dose 1,000 mls @ ud .ROUTE .STK-MED ONE Levofloxacin 500 mg 11/01/22 17:11 11/01/22 17:26 Levofloxacin 500 Mg Tablet PO 11/01/22 17:12 500 mg STAT ONE Administration Levofloxacin Confirm 11/01/22 17:25 Levofloxacin 500 Mg Tablet Administered 11/01/22 17:26 Dose 500 mg .ROUTE .STK-MED ONE Ondansetron HCl 4 mg 11/01/22 16:08 11/01/22 16:31 Ondansetron Hcl 4 Mg/2 Ml Vial IV 11/01/22 16:09 4 mg STAT ONE Administration Ondansetron HCl Confirm 11/01/22 16:29 Ondansetron Hcl 4 Mg/2 Ml Vial Administered 11/01/22 16:30 Dose 4 mg .ROUTE .STK-MED ONE Lab/Rad Data: Laboratory Result Diagrams 11/01/22 16:20 11/01/22 16:20 Laboratory Results 11/01/22 11/01/22 11/01/22 Range/Units 16:27 16:20 16:20 WBC 7.6 (4.0-10.5) x10^3/uL RBC 4.00 L (4.1-5.4) x10^6/uL Hgb 13.4 (12.0-16.0) g/dL Hct 39.6 (35-47) % MCV 99.0 (78-100) fL MCH 33.5 H (26-32) pg MCHC 33.8 (32-36) g/dL RDW 12.7 (11.5-14.0) % Plt Count 378 (150-450) x10^3/uL MPV 9.8 (7.5-11.0) fL Gran % 57.4 (36.0-66.0) % Immature Gran % (Auto) 0.3 (0.00-0.4) % Nucleat RBC Rel Count 0.0 (0.00-0.1) % Eos # (Auto) 0.36 (0-0.5) x10^3/uL Immature Gran # (Auto) 0.02 (0.00-0.03) x10^3u/L Absolute Lymphs (auto) 2.22 (1.0-4.6) x10^3/uL Absolute Monos (auto) 0.53 (0.0-1.3) x10^3/uL Absolute Nucleated RBC 0.00 (0.00-0.01) x10^3u/L Lymphocytes % 29.4 (24.0-44.0) % Monocytes % 7.0 (0.0-12.0) % Eosinophils % 4.8 (0.00-5.0) % Basophils % 1.1 (0.0-0.4) % Absolute Granulocytes 4.34 (1.4-6.9) x10^3/uL Basophils # 0.08 (0-0.4) x10^3/uL Sodium 141 (137-145) mmol/L Potassium 3.9 (3.5-5.1) mmol/L Chloride 108 H (98-107) mmol/L Carbon Dioxide 25 (22-30) mmol/L Anion Gap 11.9 (5-15) MEQ/L BUN 17 (7-17) mg/dL Creatinine 0.71 (0.52-1.04) mg/dL Estimated GFR > 60.0 ML/MIN Glucose 103 (74-106) mg/dL Calcium 9.1 (8.4-10.2) mg/dL Total Bilirubin 0.30 (0.2-1.3) mg/dL AST 22 (14-36) U/L ALT 25 (0-35) U/L Alkaline Phosphatase 63 (38-126) U/L Serum Total Protein 7.6 (6.3-8.2) g/dL Albumin 4.4 (3.5-5.0) g/dL Amylase 59 (30-110) U/L Lipase 117 (23-300) U/L Urine Color Yellow (Yellow) Urine Appearance Cloudy A (Clear) Urine pH 7.0 (4.6-8.0) Ur Specific [place] 1.025 (1.005-1.030) Urine Protein Negative (Negative) Urine Glucose (UA) Negative (Negative) mg/dL Urine Ketones Negative (Negative) Urine Blood Negative (Negative) Urine Nitrite Negative (Negative) Urine Bilirubin Negative (Negative) Urine Urobilinogen 1.0 A (0.2) mg/dL Ur Leukocyte Esterase Trace A (Negative) U Hyaline Cast (Auto) NONE SEEN (0-2) /LPF Urine Microscopic RBC 11-20 A (0-5) /HPF Urine Microscopic WBC 11-20 A (0-5) /HPF Ur Epithelial Cells Many A (None Seen) /HPF Urine Bacteria Few A (None Seen) /HPF Urine Culture Reflexed YES (NO) - Progress Progress Note: 11/01/22 17:29 CAT scan of the abdomen and pelvis without contrast shows no evidence of appendicitis. There is increased fecal retention in the colon most prominent in the ascending colon. There is probable small follicles in the ovaries bilaterally. There is no free fluid present. There is right middle lobe atelectasis and infiltrate Counseled pt/family regarding: lab results, diagnosis, need for follow-up, rad results - Departure Departure Disposition: Home Clinical Impression: UTI (urinary tract infection), Pulmonary infiltrate on chest x-ray, Con stipation Condition: Stable Critical Care Time: No Referrals: JUDY BLAND MD [Primary Care Provider] - Follow up/PCP as directed Additional Instructions: Drink plenty of fluids. Be up and ambulating and active. Use the fleets enema as instructed on the package when you get home. Take your antibiotics as prescribed. This will treat urinary tract infection and the infiltrate that is present in the right lung field. Obtain MiraLAX and use as instructed on the package. Contact your primary care provider on 11/03/2022 for further evaluation and management. Prescriptions: Levofloxacin [Levaquin 500 MG Tablet] 500 mg PO DAILY #7 tablet
[2022-11-01 15:49] VITALS: O2SAT 98
[2022-11-01] MEDS ORDERED: Zofran 4 MG/2 ML VIAL IV ONE (16:08)
[2022-11-01] MEDS ORDERED: Sodium Chloride 0.9% 1000 ML 1,000 ML IV STA (16:08)
[2022-11-01] MEDS ORDERED: Hydromorphone 1 mg/ml Injection IV ONE (16:08)
[2022-11-01 16:28] LABS: Absolute Neutrophil Ct (ANC) 4.34 x10^3/uL (1.4-6.9); Basophil (Absolute #) 0.08 x10^3/uL (0-0.4); Eosinophil % 4.8 % (0.00-5.0); Eosinophil (Absolute #) 0.36 x10^3/uL (0-0.5); Hematocrit 39.6 % (35-47); Hemoglobin 13.4 g/dL (12.0-16.0); Lymphocyte (Absolute #) 2.22 x10^3/uL (1.0-4.6); Lymphocytes % 29.4 % (24.0-44.0); Mean Corpuscular Hemoglobin 33.5 pg (26-32); Mean Corpuscular Hgb Concent. 33.8 g/dL (32-36); Mean Platelet Volume 9.8 fL (7.5-11.0); Monocyte (Absolute #) 0.53 x10^3/uL (0.0-1.3); Neutrophil % 57.4 % (36.0-66.0); Platelet Count 378 x10^3/uL (150-450); Red Cell Distribution Width 12.7 % (11.5-14.0); White Blood Count 7.6 x10^3/uL (4.0-10.5)
[2022-11-01] MEDS ORDERED: Zofran 4 MG/2 ML VIAL ONE (16:29)
[2022-11-01] MEDS ORDERED: Hydromorphone 1 mg/ml Injection ONE (16:30)
[2022-11-01] MEDS ORDERED: Sodium Chloride 0.9% 1000 ML 1,000 ML ONE (16:30)
[2022-11-01 16:58] LABS: Appearance Cloudy (Clear); Bacteria Few /HPF (None Seen); Bilirubin Negative (Negative); Blood Negative (Negative); Epithelial Cells Many /HPF (None Seen); Glucose, Urine Negative (Negative); Hyaline Casts NONE SEEN /LPF (0-2); Ketones Negative (Negative); Leukocyte Esterase Trace (Negative); Nitrite Negative (Negative); Protein,Urine Dip Negative (Negative); Specific Gravity 1.025 (1.005-1.030)
[2022-11-01 17:01] LABS: ALBUMIN 4.4 g/dL (3.5-5.0); ALKALINE PHOSPHATASE 63 U/L (38-126); AMYLASE 59 U/L (30-110); ANION GAP 11.9 MEQ/L (5-15); BLOOD UREA NITROGEN 17 mg/dL (7-17); CHLORIDE 108 mmol/L (98-107); Calcium 9.1 mg/dL (8.4-10.2); Carbon Dioxide 25 mmol/L (22-30); Creatinine 1 0.71 mg/dL (0.52-1.04); EST GLOMERULAR FILTRATION RATE > 60.0 ML/MIN; Glucose 103 mg/dL (74-106); LIPASE 117 U/L (23-300); Potassium 3.9 mmol/L (3.5-5.1); SGOT/AST 22 U/L (14-36); SGPT/ALT 25 U/L (0-35); SODIUM 141 mmol/L (137-145); Total Protein 7.6 g/dL (6.3-8.2)
[2022-11-01 17:01] LABS: ADD URINE CULTURE? YES (NO)
[2022-11-01] MEDS ORDERED: Levofloxacin 500 MG Tablet PO ONE (17:11)
[2022-11-01] MEDS ORDERED: Levofloxacin 500 MG Tablet ONE (17:25)
[2022-11-01 17:38] VITALS: BP 118/80; PULSE 73
--- NOTE | 2022-11-01 20:12 | XRAY ---
Indication: Sudden onset right lower quadrant pain. Multiple contiguous axial images obtained through the abdomen and pelvis without contrast. Comparison: January 22, 2022. Lung bases demonstrates new incompletely visualized right middle lobe infiltrate/atelectasis. Heart not enlarged. Stomach is distended with food/fluid. Noncontrasted stomach and bowel loops appear nonobstructed with normal appendix. Again mild diffuse scattered colonic fecal debris more than before. No free fluid/air. Stable left upper renal exophytic cyst and splenic calcified granulomas. Remaining liver, gallbladder, pancreas, spleen, adrenal glands, kidneys, ureters, bladder, uterus, and aorta appear unremarkable for noncontrast exam. Osseous structures intact. Impression: 1. New incompletely visualized right middle lobe infiltrate/atelectasis. 2. Worsening mild diffuse fecal stasis. 3. Again chronic findings including left renal cyst and old granulomatous disease. 4. Remaining CT abdomen/pelvis without contrast exam is negative. Comment: Preliminary interpretation made by [facility]. No critical discrepancy.
== END 2022-11-01 17:47 | disposition home or self-care (01) ==
LOC: ED 15:26
DX: N39.0 Urinary tract infection, site not specified (principal); R91.8 Other nonspecific abnormal finding of lung field; K59.00 Constipation, unspecified; R10.31 Right lower quadrant pain; R11.0 Nausea; E78.5 Hyperlipidemia, unspecified; Z79.899 Other long term (current) drug therapy; Z72.0 Tobacco use
CPT/HCPCS: 36000; 36415; 74176; 80053; 81001; 82150; 83690; 85025; 87086; 96360; 96374; 96375; 99284; J1170; J2405; A9270-GY

== ENCOUNTER 2022-12-20 12:05 | Emergency (ER) | payer OTHER ==
--- NOTE | 2022-12-20 12:08 | ERPHSYRPT ---
- History of Present Illness Time Seen by Provider: 12/20/22 12:08 Source: patient Exam Limitations: no limitations Physician History: This 47-year-old white female who is obese and complains of right knee pain that has been present since last evening. She did not suffer any fall or traumatic injury. Patient does have a history of lupus, fibromyalgia, neuropathy and degenerative joint disease. In addition she has hyperlipidemia and COPD. Patient is a daily smoker of cigarettes Method of Injury: unknown Occurred: yesterday Severity of Pain-Max: mild (To moderate) Severity of Pain-Current: mild (To moderate) Lower Extremities Pain: knee: right Modifying Factors: Improves With: movement Associated Symptoms: other (Hurts to ambulate but can do so) Allergies/Adverse Reactions: ca Allergy (Severe, Verified 12/20/22 12:12) Swelling pregabalin [From Lyrica] Allergy (Severe, Verified 12/20/22 12:12) Penicillins Allergy (Verified 12/20/22 12:12) Rash propoxyphene HCl [From Darvon] Allergy (Verified 12/20/22 12:12) PASS OUT morphine Adverse Reaction (Verified 12/20/22 12:12) can not take pill form Home Medications: Erenumab-Aooe [Aimovig Autoinjector] 170 mg IJ UD 02/20/19 [History] Propranolol HCl [Inderal 20 MG] 40 mg PO QHS 02/20/19 [History] levETIRAcetam [Levetiracetam] 1,000 mg PO BID 02/20/19 [History] Lorazepam 0.5 mg [Ativan 0.5 MG] 1 tab PO BID PRN 12/29/21 [History] Asenapine Maleate [Saphris] 5 mg PO QHS 01/08/22 [History] SUMAtriptan succinate [Imitrex 50 mg] 50 mg PO QDP PRN 01/08/22 [History] Hx Tetanus, Diphtheria Vaccination/Date Given: Yes Hx Influenza Vaccination/Date Given: Yes (07/30/22) Hx Pneumococcal Vaccination/Date Given: No Travel Risk - International Travel Have you traveled outside of the country in past 3 weeks: No - Coronavirus Screening Are you exhibiting any of the following symptoms?: No Close contact with a COVID-19 positive Pt in past 14-21 Days: No - Vaccine Status Have you recieved a 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: Yes Plastic Maker: Pfizer - Vaccination Dates Date of 2cond Vaccination (if applicable): 2020 - Review of Systems Constitutional: No Symptoms Eyes: No Symptoms Ears, Nose, & Throat: No Symptoms Respiratory: No Symptoms Cardiac: No Symptoms Abdominal/Gastrointestinal: No Symptoms Genitourinary Symptoms: No Symptoms Musculoskeletal: Joint Pain (Right knee), No Deformity, No Fall, No Injury Skin: No Symptoms Neurological: No Symptoms Psychological: No Symptoms Endocrine: No Symptoms Hematologic/Lymphatic: No Symptoms Immunological/Allergic: No Symptoms All Other Systems: Reviewed and Negative - Past Medical History Pertinent Past Medical History: Yes Neurological History: Seizures ENT History: No Pertinent History Cardiac History: High Cholesterol Respiratory History: COPD Endocrine Medical History: Other Musculoskeletal History: Degenerative Disk Disease, Fibromyalgia GI Medical History: Esophageal Disorder, GERD History: No Pertinent History Psycho-Social History: Anxiety, Depression, Panic Disorder Female Reproductive Disorders: Abnormal Uterine Bleeding Other Medical History: Lupus, Neuropathy, DDD - Past Surgical History Past Surgical History: Yes Neuro Surgical History: No Pertinent History Cardiac: No Pertinent History Respiratory: No Pertinent History Gastrointestinal: No Pertinent History Genitourinary: No Pertinent History Musculoskeletal: Other Female Surgical History: Section, Tubal Ligation, Other Other Surgical History: ABLATION - TUBAL LIGATION. BILATERAL WRIST SURGERY. PLATE AND TWO SCREWS IN THE BACK OF NECK. 12/26/20 Surgery to back. cadaver bone in neck - Social History Smoking Status: Current every day smoker How long have you smoked: 30 years Exposure to second hand smoke: Yes Drug Use: none Patient Lives Alone: No - Nursing Vital Signs Nursing Vital Signs: Initial Vital Signs Temperature 97.3 F 12/20/22 12:15 Pulse Rate 84 12/20/22 12:15 Respiratory Rate 18 12/20/22 12:15 Blood Pressure 163/102 12/20/22 12:15 O2 Sat by Pulse Oximetry 97 12/20/22 12:15 Pain Scale Pain Intensity 7 - Physical Exam General Appearance: no apparent distress, alert, anxiety, obese Eyes, Ears, Nose, Throat Exam: normal ENT inspection, moist mucous membranes Neck Exam: normal inspection, non-tender, supple, full range of motion Cardiovascular/Respiratory Exam: chest non-tender, no respiratory distress Gastrointestinal/Abdominal Exam: non-tender Back Exam: normal inspection, normal range of motion, No CVA tenderness, No vertebral tenderness Hips Exam: bilateral: non-tender, normal inspection, normal range of motion, no evidence of injury Legs Exam: bilateral leg: non-tender, normal inspection, normal range of motion, no evidence of injury Knees Exam: right knee: other (Right knee joint pain), left knee: non-tender, bilateral knee: normal inspection, normal range of motion, no evidence of injury Ankle Exam: bilateral ankle: non-tender, normal inspection, normal range of motion, no evidence of injury Foot Exam: bilateral foot: non-tender, normal inspection, normal range of motion, no evidence of injury Neuro/Tendon Exam: normal sensation, normal motor functions, normal tendon functions, responds to pain, no evidence tendon injury Mental Status Exam: alert, 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, cooperative Skin Exam: normal color, warm, dry SpO2 Interpretation: normal O2 Delivery: Room Air - Course Nursing assessment & vital signs reviewed: Yes Ordered Tests: Active Orders 24 hr Category Date Time Status KNEE (3 VIEWS) Stat Exams 12/20/22 12:19 Taken Medication Summary Generic Name Dose Route Start Last Admin Trade Name Sohailq PRN Reason Stop Dose Admin Oxycodone/Acetaminophen 1 tab 12/20/22 12:59 Oxycodone / Apap 10/325 Mg 1 Tablet PO 12/20/22 13:00 STAT STA Prednisone 20 mg 12/20/22 12:59 Prednisone 20 Mg Tablet PO 12/20/22 13:00 STAT ONE - Progress Progress: pain not gone completely, re-examined Progress Note: 12/20/22 12:40 X-ray right knee shows no acute fracture or dislocation. This x-ray was interpreted by me This patient's medical issue is 1 of low complexity. This level in the work-up was based on the patient's past medical history, history of present illness and findings on physical examination. The work-up was based on the above and it includes x-ray of the right knee. I interpreted the x-ray myself which does not show acute fracture or dislocation. Discharge planning includes providing the patient with an oral steroid and Percocet pain medication here in the emergency department with prescriptions for steroids for home. She can follow-up with her primary care provider or the [facility] orthopedic clinic on 12/22/2022. Discussed with the patient. 12/20/22 13:00 Patient states that she can take Percocet without any problems. Counseled pt/family regarding: diagnosis, need for follow-up, rad results Medical Desision Making - Discussion of managment Reviewed:: Test results Agreed on:: Treatment plan, need for follow-up - Diagnostic Testing Diagnostic test were ordered, analyzed, and reviewed by me: Yes Radiological Interpretation: Interpreted by me - Risk of complications Low Risk: Low risk of morbidity from additional dx testing or treatment The pt has a mod risk of morbidity or mortality based on: Need for prescription drug management - Departure Departure Disposition: Home Clinical Impression: Right knee pain Condition: Stable Critical Care Time: No Referrals: JUDY BLAND MD [Primary Care Provider] - Follow up/PCP as directed Instructions: Knee Pain (DC) Additional Instructions: Continue your other medication as prescribed. Take your medication that is new as prescribed. Follow-up with your primary care provider or with [facility] orthopedic clinic on 12/22/2022 at 8 AM. It is a walk-in clinic and you do not need an appointment. Prescriptions: Prednisone 10 mg [Deltasone 10 mg] 10 mg PO TID #12 tablet
[2022-12-20 12:17] VITALS: BP 163/102
[2022-12-20] MEDS ORDERED: OXYCODONE-ACETAMINOPHEN 10-325 PO STA (12:59)
[2022-12-20] MEDS ORDERED: DELTASONE 20 MG PO ONE (12:59)
[2022-12-20] MEDS ORDERED: DELTASONE 20 MG ONE (13:03)
[2022-12-20] MEDS ORDERED: OXYCODONE-ACETAMINOPHEN 10-325 ONE (13:03)
[2022-12-20 13:10] VITALS: PULSE 78; O2SAT 96
--- NOTE | 2022-12-20 20:03 | XRAY ---
Indication: Pain 2 days. No known injury. Comparison: None 3 view right knee obtained. No bony, articular, or soft tissue abnormalities.
== END 2022-12-20 13:10 | disposition home or self-care (01) ==
LOC: ED 12:05
DX: M25.561 Pain in right knee (principal); E78.5 Hyperlipidemia, unspecified; Z79.52 Long term (current) use of systemic steroids; Z79.899 Other long term (current) drug therapy; Z72.0 Tobacco use
CPT/HCPCS: 73562; 99283; A9270-GY

== ENCOUNTER 2023-02-18 23:26 | Emergency (ER) | payer OTHER ==
[2023-02-19] MEDS ORDERED: Sodium Chloride 0.9% 1000 ML 1,000 ML IV STA (00:38)
[2023-02-19] MEDS ORDERED: Sodium Chloride 0.9% 1000 ML 1,000 ML ONE (00:43)
[2023-02-19 00:45] LABS: Absolute Neutrophil Ct (ANC) 4.12 x10^3/uL (1.4-6.9); BASOPHIL % 1.2 % (0.0-0.4); Basophil (Absolute #) 0.09 x10^3/uL (0-0.4); Eosinophil % 7.9 % (0.00-5.0); Eosinophil (Absolute #) 0.59 x10^3/uL (0-0.5); Hematocrit 39.3 % (35-47); Hemoglobin 13.1 g/dL (12.0-16.0); IMMATURE GRAN # 0.02 x10^3u/L (0.00-0.03); IMMATURE GRAN % 0.3 % (0.00-0.4); Lymphocyte (Absolute #) 2.04 x10^3/uL (1.0-4.6); Lymphocytes % 27.2 % (24.0-44.0); Mean Cell Volume 97.3 fL (78-100); Mean Corpuscular Hemoglobin 32.4 pg (26-32); Mean Corpuscular Hgb Concent. 33.3 g/dL (32-36); Mean Platelet Volume 9.5 fL (7.5-11.0); Monocyte (Absolute #) 0.65 x10^3/uL (0.0-1.3); Monocytes % 8.7 % (0.0-12.0); Neutrophil % 54.7 % (36.0-66.0); Platelet Count 322 x10^3/uL (150-450); Red Blood Count 4.04 x10^6/uL (4.1-5.4); Red Cell Distribution Width 12.2 % (11.5-14.0); White Blood Count 7.5 x10^3/uL (4.0-10.5)
[2023-02-19] MEDS ORDERED: SUBLIMAZE 100 MCG/2 ML IV ONE (01:00)
--- NOTE | 2023-02-19 01:15 | ERPHSYRPT ---
- History of Present Illness Source: patient Exam Limitations: no limitations Patient Subjective Stated Complaint: pt states for the last week she has been having rt lower abd pain, states her pain shoots down to her cervix at times. Triage Nursing Assessment: pt alert and oriented, answers questions approp. pt ambulates into room with steady gait noted. respirations nonlabored. skin warm and dry. abd soft, bowel sounds hypo. Physician History: Patient is a 47-year-old female presents with abdominal pain and vomiting. Patient reports symptoms started 1 week ago. Patient reports her abdominal pain is located in the right lower quadrant and radiates to her pubic region. Patient reports pain is characterized as sharp, intermittent and goes from 4/10 to 9/10. Reports she has been vomiting with every meal. Patient denies having any urinary symptoms. Denies having any fever, chills or diarrhea. Allergies/Adverse Reactions: ca Allergy (Severe, Verified 02/19/23 00:04) Swelling pregabalin [From Lyrica] Allergy (Severe, Verified 02/19/23 00:04) Penicillins Allergy (Verified 02/19/23 00:04) Rash propoxyphene HCl [From Darvon] Allergy (Verified 02/19/23 00:04) PASS OUT Home Medications: Propranolol HCl [Inderal 20 MG] 40 mg PO BID 02/20/19 [History] levETIRAcetam [Levetiracetam] 1,000 mg PO BID 02/20/19 [History] Lorazepam 0.5 mg [Ativan 0.5 MG] 1 mg PO TIDPRN PRN 12/29/21 [History] SUMAtriptan succinate [Imitrex 50 mg] 50 mg PO QDP PRN 01/08/22 [History] Gabapentin [Neurontin] 600 mg PO HS 02/19/23 [History] Hydroxychloroquine Sulfate 200 mg PO DAILY 02/19/23 [History] Levetiracetam 250 MG [Keppra 250 MG] 250 mg PO BID 02/19/23 [History] OLANZapine [Zyprexa] 7.5 mg PO HS 02/19/23 [History] Prazosin HCl 4 mg PO HS 02/19/23 [History] Ropinirole 2Mg [Requip 2Mg Tab] 2 mg PO HS 02/19/23 [History] lamoTRIgine [Lamictal] 150 mg PO BID 02/19/23 [History] Hx Tetanus, Diphtheria Vaccination/Date Given: Yes Hx Influenza Vaccination/Date Given: Yes (07/30/22) Hx Pneumococcal Vaccination/Date Given: No Travel Risk - International Travel Have you traveled outside of the country in past 3 weeks: No - Coronavirus Screening Are you exhibiting any of the following symptoms?: No Close contact with a COVID-19 positive Pt in past 14-21 Days: No - Vaccine Status Have you recieved a 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: Yes 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: [employer] - Vaccination Dates Date of 2cond Vaccination (if applicable): 2020 - Review of Systems Constitutional: No Fever, No Chills Eyes: No Symptoms Ears, Nose, & Throat: No Symptoms Respiratory: No Cough, No Dyspnea Cardiac: No Chest Pain, No Edema, No Syncope Abdominal/Gastrointestinal: Abdominal Pain, Nausea, Vomiting, No Diarrhea Genitourinary Symptoms: No Dysuria Musculoskeletal: No Back Pain, No Neck Pain Skin: No Rash Neurological: No Dizziness, No Focal Weakness, No Sensory Changes Psychological: No Symptoms Endocrine: No Symptoms All Other Systems: Reviewed and Negative - Past Medical History Pertinent Past Medical History: Yes Neurological History: Seizures ENT History: No Pertinent History Cardiac History: High Cholesterol Respiratory History: COPD Endocrine Medical History: Other Musculoskeletal History: Degenerative Disk Disease, Fibromyalgia GI Medical History: Esophageal Disorder, GERD History: No Pertinent History Psycho-Social History: Anxiety, Bipolar, Depression, Panic Disorder Female Reproductive Disorders: Abnormal Uterine Bleeding Other Medical History: Lupus, Neuropathy, DDD, schizophrenia - Past Surgical History Past Surgical History: Yes Neuro Surgical History: No Pertinent History Cardiac: No Pertinent History Respiratory: No Pertinent History Gastrointestinal: No Pertinent History Genitourinary: No Pertinent History Musculoskeletal: Other Female Surgical History: Section, Tubal Ligation, Other Other Surgical History: ABLATION - TUBAL LIGATION. BILATERAL WRIST SURGERY. PLATE AND TWO SCREWS IN THE BACK OF NECK. 12/26/20 Surgery to back. cadaver bone in neck - Social History Smoking Status: Current every day smoker How long have you smoked: 30 years Exposure to second hand smoke: Yes Drug Use: none Patient Lives Alone: No - Female History Hx Last Menstrual Period: no periods for 18 yrs Hx Now: No - Nursing Vital Signs Nursing Vital Signs: Initial Vital Signs Temperature 97.3 F 02/18/23 23:51 Pulse Rate 87 02/18/23 23:51 Respiratory Rate 16 02/18/23 23:51 Blood Pressure 98/67 02/18/23 23:51 O2 Sat by Pulse Oximetry 95 02/18/23 23:51 Pain Scale Pain Intensity 6 - Physical Exam General Appearance: no apparent distress, alert Eye Exam: PERRL/EOMI, eyes nml inspection Ears, Nose, Throat Exam: normal ENT inspection, moist mucous membranes Neck Exam: normal inspection Respiratory Exam: normal breath sounds, lungs clear, No respiratory distress Cardiovascular Exam: regular rate/rhythm, normal heart sounds, normal peripheral pulses Gastrointestinal/Abdomen Exam: soft, normal bowel sounds, tenderness (Right lower quadrant, suprapubic.), guarding (Mild guarding with right lower quadrant palpation.), other (Negative Rovsing's, positive McBurney's), No mass Back Exam: normal inspection, normal range of motion, No CVA tenderness, No vertebral tenderness Extremity Exam: normal inspection, normal range of motion Neurologic Exam: alert, 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, cooperative, normal mood/affect, nml cerebellar function, nml station & gait, sensation nml, No motor deficits Skin Exam: normal color, warm, dry, No rash Lymphatic Exam: No adenopathy SpO2: 96 Ordered Tests: Active Orders 24 hr Category Date Time Status EKG-ER Only STAT Care 02/19/23 00:28 Active IV Insertion STAT Care 02/19/23 00:38 Active NPO (ED) STAT Care 02/19/23 00:38 Active Pulse Oximetry (ED) STAT Care 02/19/23 00:38 Active ABDOMEN AND PELVIS W/0 CONTRAS [CT] Stat Exams 02/19/23 00:38 Completed CBC W DIFF Stat Lab 02/19/23 00:41 Completed CMP Stat Lab 02/19/23 00:41 Completed CULTURE,URINE Stat Lab 02/19/23 02:24 Received TROPONIN Q4H Lab 02/19/23 00:41 Completed TROPONIN Q4H Lab 02/19/23 04:30 Ordered TROPONIN Q4H Lab 02/19/23 08:30 Ordered UA W/RFX UR CULTURE Stat Lab 02/19/23 02:24 Completed Medication Summary Generic Name Dose Route Start Last Admin Trade Name Freq PRN Reason Stop Dose Admin Ceftriaxone Sodium/Dextrose 1 g in 50 mls @ 100 mls/hr 02/19/23 02:43 02/19/23 02:57 Rocephin 1 Gm-D5w 50 Ml Bag IV 02/19/23 03:12 100 ml/hr STAT STA 100 mls/hr Administration Discontinued Medications Generic Name Dose Route Start Last Admin Trade Name Manish PRN Reason Stop Dose Admin Fentanyl Citrate 25 mcg 02/19/23 01:00 02/19/23 02:12 Fentanyl Citrate 100 Mcg/2 Ml* Vial IV 02/19/23 01:01 25 mcg STAT ONE Administration Fentanyl Citrate Confirm 02/19/23 02:04 Fentanyl Citrate 100 Mcg/2 Ml* Vial Administered 02/19/23 02:05 Dose 100 mcg .ROUTE .STK-MED ONE Sodium Chloride 1,000 mls @ 999 mls/hr 02/19/23 00:38 02/19/23 00:44 Sodium Chloride 0.9% 1000 Ml IV 02/19/23 01:38 999 mls/hr .Q1H1M STA Administration Sodium Chloride Confirm 02/19/23 00:43 Sodium Chloride 0.9% 1000 Ml Administered 02/19/23 00:44 Dose 1,000 mls @ ud .ROUTE .STK-MED ONE Ceftriaxone Sodium/Dextrose Confirm 02/19/23 02:51 Rocephin 1 Gm-D5w 50 Ml Bag Administered 02/19/23 02:52 Dose 1 g in 50 mls @ ud IV .STK-MED ONE Lab/Rad Data: Laboratory Result Diagrams 02/19/23 00:41 02/19/23 00:41 Laboratory Results 02/19/23 02/19/23 02/19/23 Range/Units 02:24 00:41 00:41 WBC (4.0-10.5) x10^3/uL RBC (4.1-5.4) x10^6/uL Hgb (12.0-16.0) g/dL Hct (35-47) % MCV (78-100) fL MCH (26-32) pg MCHC (32-36) g/dL RDW (11.5-14.0) % Plt Count (150-450) x10^3/uL MPV (7.5-11.0) fL Gran % (36.0-66.0) % Immature Gran % (Auto) (0.00-0.4) % Nucleat RBC Rel Count (0.00-0.1) % Eos # (Auto) (0-0.5) x10^3/uL Immature Gran # (Auto) (0.00-0.03) x10^3u/L Absolute Lymphs (auto) (1.0-4.6) x10^3/uL Absolute Monos (auto) (0.0-1.3) x10^3/uL Absolute Nucleated RBC (0.00-0.01) x10^3u/L Lymphocytes % (24.0-44.0) % Monocytes % (0.0-12.0) % Eosinophils % (0.00-5.0) % Basophils % (0.0-0.4) % Absolute Granulocytes (1.4-6.9) x10^3/uL Basophils # (0-0.4) x10^3/uL Sodium 141 (137-145) mmol/L Potassium 3.7 (3.5-5.1) mmol/L Chloride 104 (98-107) mmol/L Carbon Dioxide 27 (22-30) mmol/L Anion Gap 13.5 (5-15) MEQ/L BUN 16 (7-17) mg/dL Creatinine 0.78 (0.52-1.04) mg/dL Estimated GFR > 60.0 ML/MIN Glucose 113 H (74-106) mg/dL Calcium 9.4 (8.4-10.2) mg/dL Total Bilirubin 0.40 (0.2-1.3) mg/dL AST 22 (14-36) U/L ALT 17 (0-35) U/L Alkaline Phosphatase 61 (38-126) U/L Troponin I < 0.012 (0.000-0.034) ng/mL Serum Total Protein 7.5 (6.3-8.2) g/dL Albumin 4.1 (3.5-5.0) g/dL Urine Color Yellow (Yellow) Urine Appearance Cloudy A (Clear) Urine pH 5.5 (4.6-8.0) Ur Specific [place] >=1.030 A (1.005-1.030) Urine Protein Negative (Negative) Urine Glucose (UA) Negative (Negative) mg/dL Urine Ketones Negative (Negative) Urine Blood Negative (Negative) Urine Nitrite Negative (Negative) Urine Bilirubin Negative (Negative) Urine Urobilinogen 1.0 A (0.2) mg/dL Ur Leukocyte Esterase Trace A (Negative) U Hyaline Cast (Auto) NONE SEEN (0-2) /LPF Urine Microscopic RBC 6-10 A (0-5) /HPF Urine Microscopic WBC 3-5 (0-5) /HPF Ur Epithelial Cells Many A (None Seen) /HPF Urine Bacteria Moderate A (None Seen) /HPF Urine Culture Reflexed YES (NO) 02/19/23 Range/Units 00:41 WBC 7.5 (4.0-10.5) x10^3/uL RBC 4.04 L (4.1-5.4) x10^6/uL Hgb 13.1 (12.0-16.0) g/dL Hct 39.3 (35-47) % MCV 97.3 (78-100) fL MCH 32.4 H (26-32) pg MCHC 33.3 (32-36) g/dL RDW 12.2 (11.5-14.0) % Plt Count 322 (150-450) x10^3/uL MPV 9.5 (7.5-11.0) fL Gran % 54.7 (36.0-66.0) % Immature Gran % (Auto) 0.3 (0.00-0.4) % Nucleat RBC Rel Count 0.0 (0.00-0.1) % Eos # (Auto) 0.59 H (0-0.5) x10^3/uL Immature Gran # (Auto) 0.02 (0.00-0.03) x10^3u/L Absolute Lymphs (auto) 2.04 (1.0-4.6) x10^3/uL Absolute Monos (auto) 0.65 (0.0-1.3) x10^3/uL Absolute Nucleated RBC 0.00 (0.00-0.01) x10^3u/L Lymphocytes % 27.2 (24.0-44.0) % Monocytes % 8.7 (0.0-12.0) % Eosinophils % 7.9 H (0.00-5.0) % Basophils % 1.2 (0.0-0.4) % Absolute Granulocytes 4.12 (1.4-6.9) x10^3/uL Basophils # 0.09 (0-0.4) x10^3/uL Sodium (137-145) mmol/L Potassium (3.5-5.1) mmol/L Chloride (98-107) mmol/L Carbon Dioxide (22-30) mmol/L Anion Gap (5-15) MEQ/L BUN (7-17) mg/dL Creatinine (0.52-1.04) mg/dL Estimated GFR ML/MIN Glucose (74-106) mg/dL Calcium (8.4-10.2) mg/dL Total Bilirubin (0.2-1.3) mg/dL AST (14-36) U/L ALT (0-35) U/L Alkaline Phosphatase (38-126) U/L Troponin I (0.000-0.034) ng/mL Serum Total Protein (6.3-8.2) g/dL Albumin (3.5-5.0) g/dL Urine Color (Yellow) Urine Appearance (Clear) Urine pH (4.6-8.0) Ur Specific [place] (1.005-1.030) Urine Protein (Negative) Urine Glucose (UA) (Negative) mg/dL Urine Ketones (Negative) Urine Blood (Negative) Urine Nitrite (Negative) Urine Bilirubin (Negative) Urine Urobilinogen (0.2) mg/dL Ur Leukocyte Esterase (Negative) U Hyaline Cast (Auto) (0-2) /LPF Urine Microscopic RBC (0-5) /HPF Urine Microscopic WBC (0-5) /HPF Ur Epithelial Cells (None Seen) /HPF Urine Bacteria (None Seen) /HPF Urine Culture Reflexed (NO) - Progress Progress: improved, pain not gone completely Progress Note: 02/19/23 02:44 Patient reports improvement of her abd pain with medication and IV fluids. Abdominal pelvic CT does not show any acute abdominal disease. Patient's urine is noted to have moderate mount of bacteria. 1 g of Rocephin given. Discussed results of labs and imaging with patient patient agreeable to be discharged home with antibiotic course to follow-up with PCP within 1 week. Advised patient if her symptoms increase or change to report back to the ED. Verbalized understanding. Sent home with Bactrim 10 days twice daily. Discussed signs and symptoms for patient to monitor for such as increasing abdominal pain, nausea/vomiting, fever or chills return to the ER immediately. 02/19/23 02:46 02/19/23 03:00 - Departure Departure Disposition: Home Clinical Impression: UTI (urinary tract infection) Condition: Stable Critical Care Time: No Referrals: JUDY BLAND MD [Primary Care Provider] - Follow up/PCP as directed Instructions: Urinary Tract Infection, Adult (DC) Prescriptions: Smz/Tmp Ds Tablet [Bactrim Ds Tablet] 1 tab PO Q12H 10 Days #20 tablet
[2023-02-19 01:35] LABS: ALBUMIN 4.1 g/dL (3.5-5.0); ALKALINE PHOSPHATASE 61 U/L (38-126); ANION GAP 13.5 MEQ/L (5-15); BLOOD UREA NITROGEN 16 mg/dL (7-17); CHLORIDE 104 mmol/L (98-107); Calcium 9.4 mg/dL (8.4-10.2); Carbon Dioxide 27 mmol/L (22-30); Creatinine 1 0.78 mg/dL (0.52-1.04); EST GLOMERULAR FILTRATION RATE > 60.0 ML/MIN; Glucose 113 mg/dL (74-106); Potassium 3.7 mmol/L (3.5-5.1); SGOT/AST 22 U/L (14-36); SGPT/ALT 17 U/L (0-35); SODIUM 141 mmol/L (137-145); Total Protein 7.5 g/dL (6.3-8.2)
--- NOTE | 2023-02-19 01:44 | XRAY ---
CLINICAL HISTORY:Right lower quadrant abdominal pain; COMPARISON:None; TECHNIQUES:CT scan of the abdomen and pelvis was performed without IV contrast. Coronal and sagittal reconstructive images were also obtained; FINDINGS: Abdomen. The liver is mildly enlarged in size, measuring 16.2 cm craniocaudally. No focal or diffuse parenchymal abnormality. The intrahepatic biliary radicals and the bile ducts are normal. Multiple tiny calcific foci are seen in splenic parenchyma, likely representing old calcified granulomas. The pancreas and adrenal glands are unremarkable. The kidneys are normal in size and shape. No calculi or hydronephrosis. An exophytic 2.2 x 2.1 cm hyperdense cyst is seen at the upper pole of the left kidney, likely a proteinaceous cyst. The gallbladder is distended. There is no evidence of wall thickening/ pericholecystic collection. The ascending colon, the transverse colon, the descending colon, visualized small bowel loops are unremarkable. There is no evidence of significant enlargement of the mesenteric or retroperitoneal lymph nodes. The appendix appears normal in caliber with a faint hyperdensity in its lumen in the distal portion, likely representing a small appendicolith. No evidence of silviano appendiceal inflammatory changes was seen. Pelvis. The urinary bladder is unremarkable. The rectosigmoid colon is unremarkable. The uterus and adnexa appear unremarkable. No evidence of pelvic lymphadenopathy. The lumbar spine shows early degenerative changes. IMPRESSION: 1. No significant acute abnormality was detected in the abdomen. 2. Mild hepatomegaly. 3. The suggestion of appendicolith, however, no evidence of acute appendicitis in the present study. 4. Old calcified granulomas in spleen. 5. Hyperdense exophytic left renal cyst, likely proteinaceous cyst. US correlation is recommended. Electronically Signed by: Nicolasa Romano MD. (02/19/2023 00:39:59 TOWEL SORTER)
[2023-02-19] MEDS ORDERED: SUBLIMAZE 100 MCG/2 ML ONE (02:04)
[2023-02-19 02:35] LABS: Appearance Cloudy (Clear); Bacteria Moderate /HPF (None Seen); Bilirubin Negative (Negative); Blood Negative (Negative); Epithelial Cells Many /HPF (None Seen); Glucose, Urine Negative (Negative); Hyaline Casts NONE SEEN /LPF (0-2); Ketones Negative (Negative); Leukocyte Esterase Trace (Negative); Nitrite Negative (Negative); Ph 5.5 (4.6-8.0); Protein,Urine Dip Negative (Negative); Specific Gravity >=1.030 (1.005-1.030)
[2023-02-19 02:36] LABS: ADD URINE CULTURE? YES (NO)
[2023-02-19] MEDS ORDERED: ROCEPHIN 1 Gm-D5w 50 ml Bag** 1 G/50 ML IVPB IV STA (02:43)
[2023-02-19 02:48] VITALS: O2SAT 96
[2023-02-19] MEDS ORDERED: ROCEPHIN 1 Gm-D5w 50 ml Bag** 1 G/50 ML IVPB IV ONE (02:51)
[2023-02-19 03:26] VITALS: BP 116/80; PULSE 84
== END 2023-02-19 03:30 | disposition home or self-care (01) ==
LOC: ED 23:26
DX: N39.0 Urinary tract infection, site not specified (principal); R10.31 Right lower quadrant pain; R11.2 Nausea with vomiting, unspecified; E78.5 Hyperlipidemia, unspecified; Z79.899 Other long term (current) drug therapy; Z72.0 Tobacco use
CPT/HCPCS: 36000; 36415; 74176; 80053; 81001; 84484; 85025; 87086; 93005; 94760; 96360; 96374; 99284; J0696; J3010

== ENCOUNTER 2023-05-23 23:14 | Emergency (ER) | payer OTHER ==
[2023-05-23 23:45] VITALS: TEMP 97.7
[2023-05-23] MEDS ORDERED: MORPHINE SULFATE 4 MG INJ IV ONE (23:45)
[2023-05-23] MEDS ORDERED: Sodium Chloride 0.9% 1000 ML 1,000 ML IV STA (23:45)
--- NOTE | 2023-05-23 23:49 | ERPHSYRPT ---
- History of Present Illness Time Seen by Provider: 05/23/23 23:46 Historian: patient Exam Limitations: no limitations Patient Subjective Stated Complaint: pt states that around 1400 yesterday she started having pain in left lower abd that she describes as a constant dull ache rated 7/10 and intermittently reports "tight cramping in my cervix". she has also had nausea and diarrhea for same amt of time. she hasn't vomited at all per her report. states that during this same time period she has had liquid brown stools with clear mucus- last time earlier today. Triage Nursing Assessment: pt ambulated to room 8 independently with slow steady gait after standing on scales for weight acquisition and using restroom for urine sample. she is alert and oriented times three, able to speak in complete sentences, able to move all extremities, and with resp even and unlabored. abd soft, nondistended, nontender to palpation, obese, and with bowel sounds present in all quadrants. denies sob, difficulty breathing, cp, difficulty with urination, dizziness, lightheadedness, or other ill feelings. Physician History: Patient is 47 years old female states that around 1400 yesterday she started having pain in left lower abdomen that she describes as a constant dull ache rated 7/10 and intermittently reports "tight cramping in my cervix". she has also had nausea and diarrhea for same amount of time. she hasn't vomited at all per her report. states that during this same time period she has had liquid brown stools with clear mucus- last time earlier today. Timing/Duration: yesterday Quality: cramping Abdominal Pain Onset Location: RLQ Pain Radiation: no radiation Severity of Pain-Max: moderate Severity of Pain-Current: moderate Associated Symptoms: diarrhea, nausea Previous symptoms: no prior history Allergies/Adverse Reactions: ca Allergy (Severe, Verified 05/23/23 23:19) Swelling pregabalin [From Lyrica] Allergy (Severe, Verified 05/23/23 23:19) Penicillins Allergy (Verified 05/23/23 23:19) Rash propoxyphene HCl [From Darvon] Allergy (Verified 05/23/23 23:19) PASS OUT Home Medications: Propranolol HCl [Inderal 20 MG] 40 mg PO BID 02/20/19 [History] levETIRAcetam [Levetiracetam] 1,250 mg PO BID 02/20/19 [History] Lorazepam 0.5 mg [Ativan 0.5 MG] 1 mg PO TIDPRN PRN 12/29/21 [History] SUMAtriptan succinate [Imitrex 50 mg] 50 mg PO QDP PRN 01/08/22 [History] Hydroxychloroquine Sulfate 200 mg PO DAILY 02/19/23 [History] OLANZapine [Zyprexa] 7.5 mg PO HS 02/19/23 [History] Prazosin HCl 2 mg PO HS 02/19/23 [History] Ropinirole 2Mg [Requip 2Mg Tab] 2 mg PO HS 02/19/23 [History] lamoTRIgine [Lamictal] 150 mg PO BID 02/19/23 [History] Erenumab-Aooe [Aimovig Autoinjector] 175 mg SQ UD 05/23/23 [History] Trihexyphenidyl HCl 5 mg PO BID 05/23/23 [History] Hx Tetanus, Diphtheria Vaccination/Date Given: Yes Hx Influenza Vaccination/Date Given: Yes (07/30/22) Hx Pneumococcal Vaccination/Date Given: No Immunizations Up to Date: Yes Travel Risk - International Travel Have you traveled outside of the country in past 3 weeks: No - Coronavirus Screening Are you exhibiting any of the following symptoms?: No Close contact with a COVID-19 positive Pt in past 14-21 Days: No - Vaccine Status Have you recieved a 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: Yes 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: [employer] - Vaccination Dates Date of 2cond Vaccination (if applicable): 2020 - Review of Systems Constitutional: No Fever, No Chills Eyes: No Symptoms Ears, Nose, & Throat: No Symptoms Respiratory: No Cough, No Dyspnea Cardiac: No Chest Pain, No Edema, No Syncope Abdominal/Gastrointestinal: Abdominal Pain, Nausea, No Vomiting, No Diarrhea Genitourinary Symptoms: No Dysuria Musculoskeletal: No Back Pain, No Neck Pain Skin: No Rash Neurological: No Dizziness, No Focal Weakness, No Sensory Changes Psychological: No Symptoms Endocrine: No Symptoms All Other Systems: Reviewed and Negative - Past Medical History Pertinent Past Medical History: Yes Neurological History: Seizures ENT History: No Pertinent History Cardiac History: High Cholesterol Respiratory History: COPD Endocrine Medical History: Other Musculoskeletal History: Degenerative Disk Disease, Fibromyalgia GI Medical History: Esophageal Disorder, GERD History: No Pertinent History Psycho-Social History: Anxiety, Bipolar, Depression, Panic Disorder Female Reproductive Disorders: Abnormal Uterine Bleeding Other Medical History: Lupus, Neuropathy, DDD, bipolar 1 schizophrenia, PTSD - Past Surgical History Past Surgical History: Yes Neuro Surgical History: No Pertinent History Cardiac: No Pertinent History Respiratory: No Pertinent History Gastrointestinal: No Pertinent History Genitourinary: No Pertinent History Musculoskeletal: Other Female Surgical History: Section, Tubal Ligation, Other Other Surgical History: ABLATION - TUBAL LIGATION. BILATERAL WRIST SURGERY. PLATE AND TWO SCREWS IN THE BACK OF NECK. 12/26/20 Surgery to back. cadaver bone in neck - Social History Smoking Status: Current every day smoker How long have you smoked: 30 years Exposure to second hand smoke: Yes Drug Use: none Patient Lives Alone: No - Female History Hx Last Menstrual Period: 19yrs ago Hx Now: No - Nursing Vital Signs Nursing Vital Signs: Initial Vital Signs Temperature 97.7 F 05/23/23 23:22 Pulse Rate 79 05/23/23 23:22 Respiratory Rate 16 05/23/23 23:22 Blood Pressure 137/78 05/23/23 23:22 O2 Sat by Pulse Oximetry 94 L 05/23/23 23:22 Pain Scale Pain Intensity 5 - Physical Exam General Appearance: no apparent distress, alert Eye Exam: PERRL/EOMI, eyes nml inspection Ears, Nose, Throat Exam: normal ENT inspection, pharynx normal, moist mucous membranes Neck Exam: normal inspection, non-tender, supple, full range of motion Respiratory Exam: normal breath sounds, lungs clear, No respiratory distress Cardiovascular Exam: regular rate/rhythm, normal heart sounds Gastrointestinal/Abdomen Exam: soft, tenderness (LLQ), No mass Back Exam: normal inspection, normal range of motion, No CVA tenderness, No vertebral tenderness Extremity Exam: normal inspection, normal range of motion, pelvis stable Neurologic Exam: alert, 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, cooperative, normal mood/affect, nml cerebellar function, sensation nml, No motor deficits Skin Exam: normal color, warm, dry SpO2: 94 - Course Nursing assessment & vital signs reviewed: Yes - CT Exams Abdomen/Pelvis CT Interpretation: Tele-radiologist Report Ordered Tests: Active Orders 24 hr Category Date Time Status ABDOMEN AND PELVIS W/0 CONTRAS [CT] Stat Exams 05/23/23 23:45 Completed UA W/RFX UR CULTURE Stat Lab 05/23/23 23:54 Completed Medication Summary Discontinued Medications Generic Name Dose Route Start Last Admin Trade Name Manish PRN Reason Stop Dose Admin Acetaminophen 1,000 mg 05/24/23 00:47 05/24/23 00:50 Acetaminophen 500 Mg Tablet PO 05/24/23 00:48 1,000 mg STAT ONE Administration Acetaminophen Confirm 05/24/23 00:50 Acetaminophen 500 Mg Tablet Administered 05/24/23 00:51 Dose 1,000 mg .ROUTE .STK-MED ONE Sodium Chloride 1,000 mls @ 999 mls/hr 05/23/23 23:45 05/24/23 01:14 Sodium Chloride 0.9% 1000 Ml IV 05/24/23 00:45 Infused .Q1H1M STA Infusion Sodium Chloride Confirm 05/23/23 23:55 Sodium Chloride 0.9% 1000 Ml Administered 05/23/23 23:56 Dose 1,000 mls @ ud .ROUTE .STK-MED ONE Morphine Sulfate 4 mg 05/23/23 23:45 05/23/23 23:57 Morphine Sulfate 4 Mg/Ml Injection IV 05/23/23 23:46 4 mg STAT ONE Administration Morphine Sulfate Confirm 05/23/23 23:55 Morphine Sulfate 4 Mg/Ml Injection Administered 05/23/23 23:56 Dose 4 mg .ROUTE .STK-MED ONE Lab/Rad Data: Laboratory Result Diagrams 05/23/23 00:03 05/23/23 00:03 Laboratory Results 05/23/23 05/23/23 05/23/23 Range/Units 23:54 00:03 00:03 WBC 8.5 (4.0-10.5) x10^3/uL RBC 3.88 L (4.1-5.4) x10^6/uL Hgb 12.7 (12.0-16.0) g/dL Hct 38.3 (35-47) % MCV 98.7 (78-100) fL MCH 32.7 H (26-32) pg MCHC 33.2 (32-36) g/dL RDW 12.4 (11.5-14.0) % Plt Count 352 (150-450) x10^3/uL MPV 9.7 (7.5-11.0) fL Gran % 49.5 (36.0-66.0) % Immature Gran % (Auto) 0.2 (0.00-0.4) % Nucleat RBC Rel Count 0.0 (0.00-0.1) % Eos # (Auto) 0.69 H (0-0.5) x10^3/uL Immature Gran # (Auto) 0.02 (0.00-0.03) x10^3u/L Absolute Lymphs (auto) 2.65 (1.0-4.6) x10^3/uL Absolute Monos (auto) 0.79 (0.0-1.3) x10^3/uL Absolute Nucleated RBC 0.00 (0.00-0.01) x10^3u/L Lymphocytes % 31.3 (24.0-44.0) % Monocytes % 9.3 (0.0-12.0) % Eosinophils % 8.2 H (0.00-5.0) % Basophils % 1.5 (0.0-0.4) % Absolute Granulocytes 4.18 (1.4-6.9) x10^3/uL Basophils # 0.13 (0-0.4) x10^3/uL Sodium 140 (137-145) mmol/L Potassium 4.3 (3.5-5.1) mmol/L Chloride 106 (98-107) mmol/L Carbon Dioxide 28 (22-30) mmol/L Anion Gap 10.8 (5-15) MEQ/L BUN 12 (7-17) mg/dL Creatinine 0.87 (0.52-1.04) mg/dL Estimated GFR > 60.0 ML/MIN Glucose 103 (74-106) mg/dL Calcium 9.3 (8.4-10.2) mg/dL Total Bilirubin 0.40 (0.2-1.3) mg/dL AST 19 (14-36) U/L ALT 14 (0-35) U/L Alkaline Phosphatase 55 (38-126) U/L Serum Total Protein 6.6 (6.3-8.2) g/dL Albumin 3.9 (3.5-5.0) g/dL Amylase 45 (30-110) U/L Lipase 118 (23-300) U/L Urine Color Yellow (Yellow) Urine Appearance Clear (Clear) Urine pH 6.5 (4.6-8.0) Ur Specific Sixes 1.025 (1.005-1.030) Urine Protein Negative (Negative) Urine Glucose (UA) Negative (Negative) mg/dL Urine Ketones Trace A (Negative) Urine Blood Negative (Negative) Urine Nitrite Negative (Negative) Urine Bilirubin Negative (Negative) Urine Urobilinogen 1.0 A (0.2) mg/dL Ur Leukocyte Esterase Negative (Negative) U Hyaline Cast (Auto) NONE SEEN (0-2) /LPF Urine Microscopic RBC 11-20 A (0-5) /HPF Urine Microscopic WBC 0-2 (0-5) /HPF Ur Epithelial Cells Rare (None Seen) /HPF Urine Bacteria Rare A (None Seen) /HPF Urine Culture Reflexed NO (NO) CT/ABDOMEN AND PELVIS W/0 CONTRAS CLINICAL HISTORY:left lower quadrant abdominal pain COMPARISON:02/19/2023. TECHNIQUE:CT of the abdomen and pelvis was performed with axial images as well as sagittal and coronal reconstruction images without intravenous contrast. DLP: 806.19 mGy*cm. CTDI: 13.97 mGy. FINDINGS: The liver is normal in size, and morphology and appears unremarkable with no intrahepatic or extrahepatic bile duct dilation. Unremarkable appearing gallbladder with no stones wall thickening or pericholecystic inflammatory changes or fluid. Unremarkable appearing pancreas. No pancreatic mass or ductal dilatation is seen. Redemonstration of multiple calcified granulomas in the spleen. The adrenal glands are normal. The kidneys appear unremarkable with no calculi, masses or hydronephrosis. Stable exophytic cyst at the upper pole of left kidney measuring 2.2 cm. The ureters are normal with no stones. Unremarkable abdominal aorta without specific evidence of aneurysm or dissection. IVC is normal. The stomach appears unremarkable. Unremarkable appearing duodenum. Small Bowel and colon are non-distended with no abnormality Stable appearance appendix with an appendicolith at its distal tip. No dilatation or silviano-appendiceal fat stranding is noted. No free air and no ascites. No free intraperitoneal air is seen. The bladder is unremarkable with no stones. The uterus and both ovaries outline normally. A cystic density is noted in the left ovary measuring 2.4 cm. Sections through the lung bases show mild right basal atelectatic changes. Linear atelectasis is noted along the medial segment of the right middle lobe. No osseous lesion was seen in the visualized skeleton. IMPRESSION: 1. Left ovarian cyst/maturing follicle measuring 2.4 cm, new since the previous study. Further correlation with ultrasound pelvis is advised. 2. Stable exophytic cyst at the upper pole of the left kidney measuring 2.2 cm. 3. Stable appearance appendix with an appendicolith at its distal tip. No dilatation or silviano-appendiceal fat stranding is noted. - Progress Progress: improved, pain not gone completely Counseled pt/family regarding: lab results, diagnosis, need for follow-up, rad results - Departure Departure Disposition: Home Clinical Impression: Abdominal pain Qualifiers: Abdominal location: left lower quadrant Qualified Code(s): R10.32 - Left lower quadrant pain Ovarian cyst Qualifiers: Laterality: left Qualified Code(s): N83.202 - Unspecified ovarian cyst, left side Condition: Stable Critical Care Time: No Referrals: JUDY BLAND MD [Primary Care Provider] - Follow up/PCP as directed Instructions: Severe Abdominal Pain, Adult (DC), Ovarian Cyst (DC), Ovarian Cyst ED Additional Instructions: Discharge/Care Plan CESAR AGUSTIN was seen on 05/24/23 in the Emergency Room. The patient was counseled regarding Diagnosis,Lab results, Imaging studies, need for follow up and when to return to the Emergency Room. Prescriptions given: Discharge Note I have spoken with the patient and/or caregivers. I have explained the patient's condition, diagnosis and treatment plan based on the information available to me at this time. I have answered the patient's and/or caregiver's questions and addressed any concerns. The patient and/or caregivers have as good understanding of the patient's diagnosis, condition and treatment plan as can be expected at this point. The vital signs have been stable. The patient's condition is stable and appropriate for discharge from the emergency department. The patient will pursue further outpatient evaluation with the primary care physician or other designated or consulting physician as outlined in the discharge instructions. The patient and/or caregivers are agreeable to this plan of care and follow-up instructions have been explained in detail. The patient and/or caregivers have received these instruction. The patient/and or caregivers are aware that any significant change in condition or worsening of symptoms should prompt an immediate return to this or the closest emergency department or call 911. CESAR AGUSTIN was seen on 05/24/23 n the Emergency Room. At that time you were treated for an emergent condition, during your visit Laboratory, Radiology and/or other procedures may have been ordered. It is very important that you follow-up with your Primary Care Physician JUDY BLAND MD within the next 24-48 hours to review your Emergency Room visit and the final results of testing that was ordered. Some test results such as Urine Cultures, Blood Cultures, and other cultures if ordered will not be finalized for 24-48 hours. If you do not have a Primary Care Provider please call the medical records department at [phone] ext [phone] to obtain a copy of your results or you may sign into our patient portal to obtain these results by visiting us @ [email or web address] and completing the following steps: 1. Click on the Patient Portal link 2. Click the Patient Self Enrollment Link to complete the enrollment form and entering your 3. Once the enrollment form is completed you will receive an email with a temporary ID and password at the email address you provided. 4. Next choose a user name and password. Your user name must be at least 4 characters long and your password must be at least 4 characters long. 5. Choose a security question from the list and provide your answer to the question. If you already have signed into the Health Portal you may access your Health Care Information 11/05 by the following steps: 1. Login to our website @ [email or web address] 2. Enter your original user name and password. FAQS The [facility] Health Portal is an online tool that contains your Lab Results, Radiology Reports, Visit History, Discharge Instructions and Health Summary Lab and Radiology Results will not be available for 72 hours on the portal. The Portal is a secure site, passwords are encryted and URLs are re-written so they cannot be copied and pasted. You and authorized family members are the only ones who can access your Portal. Also there is a timeout feature that protects your information if you leave the Portal page open. If you have technical difficulty please use the Contact Us link on the page this will allow you to submit any questions you have regarding the Portal or you may contact the Medical Record Department at [phone] ext [phone].
[2023-05-23] MEDS ORDERED: MORPHINE SULFATE 4 MG INJ ONE (23:55)
[2023-05-23] MEDS ORDERED: Sodium Chloride 0.9% 1000 ML 1,000 ML ONE (23:55)
[2023-05-24 00:06] LABS: Absolute Neutrophil Ct (ANC) 4.18 x10^3/uL (1.4-6.9); BASOPHIL % 1.5 % (0.0-0.4); Basophil (Absolute #) 0.13 x10^3/uL (0-0.4); Eosinophil % 8.2 % (0.00-5.0); Eosinophil (Absolute #) 0.69 x10^3/uL (0-0.5); Hematocrit 38.3 % (35-47); Hemoglobin 12.7 g/dL (12.0-16.0); IMMATURE GRAN # 0.02 x10^3u/L (0.00-0.03); IMMATURE GRAN % 0.2 % (0.00-0.4); Lymphocyte (Absolute #) 2.65 x10^3/uL (1.0-4.6); Lymphocytes % 31.3 % (24.0-44.0); Mean Cell Volume 98.7 fL (78-100); Mean Corpuscular Hemoglobin 32.7 pg (26-32); Mean Corpuscular Hgb Concent. 33.2 g/dL (32-36); Mean Platelet Volume 9.7 fL (7.5-11.0); Monocyte (Absolute #) 0.79 x10^3/uL (0.0-1.3); Monocytes % 9.3 % (0.0-12.0); Neutrophil % 49.5 % (36.0-66.0); Platelet Count 352 x10^3/uL (150-450); Red Blood Count 3.88 x10^6/uL (4.1-5.4); Red Cell Distribution Width 12.4 % (11.5-14.0); White Blood Count 8.5 x10^3/uL (4.0-10.5)
[2023-05-24 00:14] LABS: ADD URINE CULTURE? NO (NO); Appearance Clear (Clear); Bacteria Rare /HPF (None Seen); Bilirubin Negative (Negative); Blood Negative (Negative); Epithelial Cells Rare /HPF (None Seen); Glucose, Urine Negative (Negative); Hyaline Casts NONE SEEN /LPF (0-2); Ketones Trace (Negative); Leukocyte Esterase Negative (Negative); Nitrite Negative (Negative); Ph 6.5 (4.6-8.0); Protein,Urine Dip Negative (Negative); Specific Gravity 1.025 (1.005-1.030); WBC 0-2 /HPF (0-5)
[2023-05-24 00:23] LABS: ALBUMIN 3.9 g/dL (3.5-5.0); ALKALINE PHOSPHATASE 55 U/L (38-126); AMYLASE 45 U/L (30-110); ANION GAP 10.8 MEQ/L (5-15); BLOOD UREA NITROGEN 12 mg/dL (7-17); CHLORIDE 106 mmol/L (98-107); Calcium 9.3 mg/dL (8.4-10.2); Carbon Dioxide 28 mmol/L (22-30); Creatinine 1 0.87 mg/dL (0.52-1.04); EST GLOMERULAR FILTRATION RATE > 60.0 ML/MIN; Glucose 103 mg/dL (74-106); LIPASE 118 U/L (23-300); Potassium 4.3 mmol/L (3.5-5.1); SGOT/AST 19 U/L (14-36); SGPT/ALT 14 U/L (0-35); SODIUM 140 mmol/L (137-145); Total Protein 6.6 g/dL (6.3-8.2)
[2023-05-24] MEDS ORDERED: TYLENOL EXTRA STRENGTH 500 MG PO ONE (00:47)
[2023-05-24] MEDS ORDERED: TYLENOL EXTRA STRENGTH 500 MG ONE (00:50)
--- NOTE | 2023-05-24 02:28 | XRAY ---
CLINICAL HISTORY:left lower quadrant abdominal pain COMPARISON:02/19/2023. TECHNIQUE:CT of the abdomen and pelvis was performed with axial images as well as sagittal and coronal reconstruction images without intravenous contrast. DLP: 806.19 mGy*cm. CTDI: 13.97 mGy. FINDINGS: The liver is normal in size, and morphology and appears unremarkable with no intrahepatic or extrahepatic bile duct dilation. Unremarkable appearing gallbladder with no stones wall thickening or pericholecystic inflammatory changes or fluid. Unremarkable appearing pancreas. No pancreatic mass or ductal dilatation is seen. Redemonstration of multiple calcified granulomas in the spleen. The adrenal glands are normal. The kidneys appear unremarkable with no calculi, masses or hydronephrosis. Stable exophytic cyst at the upper pole of left kidney measuring 2.2 cm. The ureters are normal with no stones. Unremarkable abdominal aorta without specific evidence of aneurysm or dissection. IVC is normal. The stomach appears unremarkable. Unremarkable appearing duodenum. Small Bowel and colon are non-distended with no abnormality Stable appearance appendix with an appendicolith at its distal tip. No dilatation or silviano-appendiceal fat stranding is noted. No free air and no ascites. No free intraperitoneal air is seen. The bladder is unremarkable with no stones. The uterus and both ovaries outline normally. A cystic density is noted in the left ovary measuring 2.4 cm. Sections through the lung bases show mild right basal atelectatic changes. Linear atelectasis is noted along the medial segment of the right middle lobe. No osseous lesion was seen in the visualized skeleton. IMPRESSION: 1. Left ovarian cyst/maturing follicle measuring 2.4 cm, new since the previous study. Further correlation with ultrasound pelvis is advised. 2. Stable exophytic cyst at the upper pole of the left kidney measuring 2.2 cm. 3. Stable appearance appendix with an appendicolith at its distal tip. No dilatation or silviano-appendiceal fat stranding is noted. Electronically Signed by: Nicolasa Romano MD. (05/24/2023 01:27:43 DINING ROOM HOSTESS)
[2023-05-24 02:39] VITALS: O2SAT 94
[2023-05-24 02:49] VITALS: BP 90/54; PULSE 70; RESP 20
== END 2023-05-24 02:53 | disposition home or self-care (01) ==
LOC: ED 23:14
DX: N83.202 Unspecified ovarian cyst, left side (principal); R10.32 Left lower quadrant pain; R11.0 Nausea; R19.7 Diarrhea, unspecified; E78.5 Hyperlipidemia, unspecified; Z79.899 Other long term (current) drug therapy; Z72.0 Tobacco use
CPT/HCPCS: 36415; 74176; 80053; 81001; 82150; 83690; 85025; 96360; 96374; 99284; J2270; A9270-GY

== ENCOUNTER 2023-06-11 12:07 | Emergency (ER) | payer OTHER ==
[2023-06-11 12:37] VITALS: TEMP 98.7
[2023-06-11] MEDS ORDERED: TYLENOL 325 MG PO ONE (12:39)
[2023-06-11] MEDS ORDERED: Reglan 10 MG/2 ML IV ONE (12:39)
[2023-06-11] MEDS ORDERED: Sodium Chloride 0.9% 1000 ML 1,000 ML IV STA (12:39)
[2023-06-11] MEDS ORDERED: BENADRYL 50 MG/ML IV ONE (12:39)
[2023-06-11] MEDS ORDERED: TORAdol 30 mg Injection IV ONE (12:39)
[2023-06-11] MEDS ORDERED: BENADRYL 50 MG/ML ONE (12:58)
[2023-06-11] MEDS ORDERED: TYLENOL 325 MG ONE (12:58)
[2023-06-11] MEDS ORDERED: TORAdol 30 mg Injection ONE (12:58)
[2023-06-11] MEDS ORDERED: Sodium Chloride 0.9% 1000 ML 1,000 ML ONE (12:59)
[2023-06-11] MEDS ORDERED: Reglan 10 MG/2 ML ONE (13:05)
[2023-06-11 13:20] VITALS: RESP 18
[2023-06-11] MEDS ORDERED: MORPHINE SULFATE 4 MG INJ IV ONE ×2 (14:06→14:41)
[2023-06-11] MEDS ORDERED: MORPHINE SULFATE 4 MG INJ ONE ×2 (14:08→14:45)
--- NOTE | 2023-06-11 14:30 | ERPHSYRPT ---
- History of Present Illness Time Seen by Provider: 06/11/23 12:11 Source: patient Exam Limitations: no limitations Patient Subjective Stated Complaint: pt states that she has a migraine that started yesterday and is not getting better even with migraine meds Triage Nursing Assessment: pt ambulated into the er; pt is axo x4; c/o headache; pt is keeping eyes closed and holding head; no respiratory distress; skin PDW; vitals wnl Physician History: 47 years old female with multiple medical problems including migraines, schizophrenia, bipolar, hypertension, tobacco abuse presented in the ER with chief complaint of left-sided headache since yesterday. Patient reports she has taken her routine migraine medication with no significant relief. Moderate to severe sharp throbbing with no significant relieving factors and aggravated with bright light/noise. Denies associated nausea and vomiting. Denies any numbness tingling focal weakness or visual disturbance. No difficulty speech. Reports having similar headaches multiple times in the past. Does not think this is the worst headache of her life. Allergies/Adverse Reactions: ca Allergy (Severe, Verified 06/11/23 12:26) Swelling pregabalin [From Lyrica] Allergy (Severe, Verified 06/11/23 12:26) Penicillins Allergy (Verified 06/11/23 12:26) Rash propoxyphene HCl [From Darvon] Allergy (Verified 06/11/23 12:26) PASS OUT Home Medications: Propranolol HCl [Inderal 20 MG] 40 mg PO BID 02/20/19 [History] levETIRAcetam [Levetiracetam] 1,250 mg PO BID 02/20/19 [History] Lorazepam 0.5 mg [Ativan 0.5 MG] 1 mg PO TIDPRN PRN 12/29/21 [History] SUMAtriptan succinate [Imitrex 50 mg] 50 mg PO QDP PRN 01/08/22 [History] Hydroxychloroquine Sulfate 200 mg PO DAILY 02/19/23 [History] OLANZapine [Zyprexa] 7.5 mg PO HS 02/19/23 [History] Prazosin HCl 2 mg PO HS 02/19/23 [History] Ropinirole 2Mg [Requip 2Mg Tab] 2 mg PO HS 02/19/23 [History] lamoTRIgine [Lamictal] 150 mg PO HS 02/19/23 [History] Erenumab-Aooe [Aimovig Autoinjector] 175 mg SQ UD 05/23/23 [History] Trihexyphenidyl HCl 5 mg PO TID PRN 05/23/23 [History] lamoTRIgine [Lamotrigine] 200 mg PO DAILY 06/11/23 [History] Hx Tetanus, Diphtheria Vaccination/Date Given: Yes Hx Influenza Vaccination/Date Given: Yes (07/30/22) Hx Pneumococcal Vaccination/Date Given: No Travel Risk - International Travel Have you traveled outside of the country in past 3 weeks: No - Coronavirus Screening Are you exhibiting any of the following symptoms?: No - Vaccine Status Have you recieved a 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: Yes 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[employer] - Vaccination Dates Date of 2cond Vaccination (if applicable): 2020 - Review of Systems Constitutional: No Symptoms Eyes: No Symptoms Ears, Nose, & Throat: No Symptoms Respiratory: No Symptoms Cardiac: No Symptoms Abdominal/Gastrointestinal: No Symptoms Genitourinary Symptoms: No Symptoms Musculoskeletal: No Symptoms Skin: No Symptoms Neurological: Headache Endocrine: No Symptoms Hematologic/Lymphatic: No Symptoms - Past Medical History Pertinent Past Medical History: Yes Neurological History: Seizures ENT History: No Pertinent History Cardiac History: High Cholesterol Respiratory History: COPD Endocrine Medical History: Other Musculoskeletal History: Degenerative Disk Disease, Fibromyalgia GI Medical History: Esophageal Disorder, GERD History: No Pertinent History Psycho-Social History: Anxiety, Bipolar, Depression, Panic Disorder Female Reproductive Disorders: Abnormal Uterine Bleeding Other Medical History: Lupus, Neuropathy, DDD, bipolar 1 schizophrenia, PTSD - Past Surgical History Past Surgical History: Yes Neuro Surgical History: No Pertinent History Cardiac: No Pertinent History Respiratory: No Pertinent History Gastrointestinal: No Pertinent History Genitourinary: No Pertinent History Musculoskeletal: Other Female Surgical History: Section, Tubal Ligation, Other Other Surgical History: ABLATION - TUBAL LIGATION. BILATERAL WRIST SURGERY. PLATE AND TWO SCREWS IN THE BACK OF NECK. 12/26/20 Surgery to back. cadaver bone in neck - Social History Smoking Status: Current every day smoker How long have you smoked: 30 years Exposure to second hand smoke: Yes Drug Use: none Patient Lives Alone: No - Female History Hx Now: No - Nursing Vital Signs Nursing Vital Signs: Initial Vital Signs Temperature 98.7 F 06/11/23 12:10 Pulse Rate 77 06/11/23 12:10 Respiratory Rate 16 06/11/23 12:10 Blood Pressure 108/69 06/11/23 12:10 O2 Sat by Pulse Oximetry 95 06/11/23 12:10 Pain Scale Pain Intensity 4 - Physical Exam General Appearance: no apparent distress, alert Eye Exam: PERRL/EOMI Ears, Nose, Throat Exam: normal ENT inspection, TMs normal, pharynx normal, moist mucous membranes Neck Exam: normal inspection, non-tender, supple, full range of motion Respiratory Exam: normal breath sounds, lungs clear Cardiovascular Exam: regular rate/rhythm, normal heart sounds Gastrointestinal/Abdominal Exam: soft, normal bowel sounds, No tenderness Extremity Exam: normal inspection, normal range of motion Mental Status Exam: alert, 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, cooperative 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 analyst Exam: normal hearing, normal speech Coordination/Gait Exam: normal finger to nose, normal gait, normal cerebellar function, negative Romberg's sign Motor/Sensory Exam: no motor deficit, no sensory deficit, no pronator drift, negative Babinski's sign DTR Exam: bicep (R): 2+, bicep (L): 2+, knee (R): 2+, knee (L): 2+ Skin Exam: normal color SpO2 Interpretation: normal SpO2: 95 O2 Delivery: Room Air Ordered Tests: Active Orders 24 hr Category Date Time Status IV Insertion STAT Care 06/11/23 12:39 Active Medication Summary Discontinued Medications Generic Name Dose Route Start Last Admin Trade Name Manish PRN Reason Stop Dose Admin Acetaminophen 975 mg 06/11/23 12:39 06/11/23 13:06 Acetaminophen 325 Mg Tablet PO 06/11/23 12:40 975 mg STAT ONE Administration Acetaminophen Confirm 06/11/23 12:58 Acetaminophen 325 Mg Tablet Administered 06/11/23 12:59 Dose 975 mg .ROUTE .STK-MED ONE Diphenhydramine HCl 25 mg 06/11/23 12:39 06/11/23 13:06 Diphenhydramine Hcl 50 Mg/Ml Vial IV 06/11/23 12:40 25 mg STAT ONE Administration Diphenhydramine HCl Confirm 06/11/23 12:58 Diphenhydramine Hcl 50 Mg/Ml Vial Administered 06/11/23 12:59 Dose 50 mg .ROUTE .STK-MED ONE Sodium Chloride 1,000 mls @ 999 mls/hr 06/11/23 12:39 06/11/23 14:12 Sodium Chloride 0.9% 1000 Ml IV 06/11/23 13:39 Infused .Q1H1M STA Infusion Sodium Chloride Confirm 06/11/23 12:59 Sodium Chloride 0.9% 1000 Ml Administered 06/11/23 13:00 Dose 1,000 mls @ ud .ROUTE .STK-MED ONE Ketorolac Tromethamine 30 mg 06/11/23 12:39 06/11/23 13:07 Ketorolac Tromethamine 30 Mg/Ml Inj IV 06/11/23 12:40 30 mg STAT ONE Administration Ketorolac Tromethamine Confirm 06/11/23 12:58 Ketorolac Tromethamine 30 Mg/Ml Inj Administered 06/11/23 12:59 Dose 30 mg .ROUTE .STK-MED ONE Metoclopramide HCl 10 mg 06/11/23 12:39 06/11/23 13:06 Metoclopramide Hcl 10 Mg/2 Ml Vial IV 06/11/23 12:40 10 mg STAT ONE Administration Metoclopramide HCl Confirm 06/11/23 13:05 Metoclopramide Hcl 10 Mg/2 Ml Vial Administered 06/11/23 13:06 Dose 10 mg .ROUTE .STK-MED ONE Morphine Sulfate 4 mg 06/11/23 14:06 06/11/23 14:08 Morphine Sulfate 4 Mg/Ml Injection IV 06/11/23 14:07 4 mg STAT ONE Administration Morphine Sulfate Confirm 06/11/23 14:08 Morphine Sulfate 4 Mg/Ml Injection Administered 06/11/23 14:09 Dose 4 mg .ROUTE .STK-MED ONE Morphine Sulfate 4 mg 06/11/23 14:41 06/11/23 14:47 Morphine Sulfate 4 Mg/Ml Injection IV 06/11/23 14:42 4 mg STAT ONE Administration Morphine Sulfate Confirm 06/11/23 14:45 Morphine Sulfate 4 Mg/Ml Injection Administered 06/11/23 14:46 Dose 4 mg .ROUTE .STK-MED ONE - Progress Progress: improved, re-examined Air Movement: good Progress Note: 06/11/23 14:53 47 years old female with multiple medical problems including migraines, schizophrenia, bipolar, hypertension, tobacco abuse presented in the ER with chief complaint of left-sided headache since yesterday. Patient reports she has taken her routine migraine medication with no significant relief. Moderate to severe sharp throbbing with no significant relieving factors and aggravated with bright light/noise. Denies associated nausea and vomiting. Denies any numbness tingling focal weakness or visual disturbance. No difficulty speech. Reports having similar headaches multiple times in the past. Does not think this is the worst headache of her life. Patient has nonfocal neuro exam throughout stay in the ER. She is given migraine cocktail along with fluids and morphine, on reevaluation her headache is resolved. She has no nuchal rigidity, fever or chills. No signs of meningitis. Similar headaches before. I have offered her CT head but patient declined and said "I have same headaches before and I would like to go home rather than going through all this which I have been through before." Discussed signs symptoms of worsening needing return to ER which she seems understanding. Stable for discharge. Blood Culture(s) Obtained: No Antibiotics given: No Counseled pt/family regarding: diagnosis, need for follow-up, smoking cessation - Departure Departure Disposition: Home Clinical Impression: Migraine Qualifiers: Migraine type: without aura Status migrainosus presence: without status migrainosus Intractability: not intractable Qualified Code(s): G43.009 - Migraine without aura, not intractable, without status migrainosus Condition: Stable Critical Care Time: No Referrals: JUDY BLAND MD [Primary Care Provider] - Follow up with PCP 1 day Instructions: Headache, Adult (DC) Additional Instructions: Continue with your current migraine medications as recommended. Follow-up with primary care/neurology for reevaluation. Return to ER for intractable headache, numbness tingling/focal weakness, visual disturbance or difficulty speech etc.
[2023-06-11 15:13] VITALS: BP 100/65; PULSE 64; O2SAT 97
== END 2023-06-11 15:12 | disposition home or self-care (01) ==
LOC: ED 12:07
DX: G43.009 Migraine without aura, not intractable, without status migrainosus (principal); I10 Essential (primary) hypertension; E78.5 Hyperlipidemia, unspecified; Z79.899 Other long term (current) drug therapy; Z72.0 Tobacco use
CPT/HCPCS: 36000; 96360; 96374; 96375; 96376; 99284; J1200; J1885; J2270; A9270-GY

== ENCOUNTER 2023-07-21 23:19 | Emergency (ER) | payer OTHER ==
[2023-07-21 23:26] VITALS: TEMP 97.4
--- NOTE | 2023-07-21 23:41 | ERPHSYRPT ---
- History of Present Illness Time Seen by Provider: 07/21/23 23:25 Source: patient Exam Limitations: no limitations Patient Subjective Stated Complaint: rash to my body and my whole body hurts and aches Triage Nursing Assessment: pt ambulated into ER without diff. Pt alert and oriented x4. Pt c/o rash to her body thats been on and off x1 month. Pt has 4 areas that I noticed this evening (2 to rt lower abd area and 2 to lower back area), all oval in shape and dry in nature. Pt describes it as itchy and it's making my whole body hurt. Pt states, "I can usually get it to calm down with taking Benadryl but not tonight". Physician History: This is a 47-year-old morbidly obese white female patient who has a history of lupus and presents with 4 areas of body rash that she is concerned about. The rashes are itchy and cause her entire body skin to have pain. She has no known new exposures. She has had this problem intermittently for a month. She has seen providers in the last month. She has not seen a kiln fireman and she has not seen her platform consultant. She took Benadryl at 2230 prior to arrival to this appointment and it did not help. Patient has a history of seizure disorder, hyperlipidemia, COPD, anxiety, panic disorder, bipolar disorder and schizophrenia as well as PTSD. Timing/Duration: intermittent (Over the last month), worse Severity: mild Location: generalized (To moderate) Possible Causes: no cause identified Associated Symptoms: rash Allergies/Adverse Reactions: ca Allergy (Severe, Verified 07/21/23 23:22) Swelling pregabalin [From Lyrica] Allergy (Severe, Verified 07/21/23 23:22) amoxicillin Allergy (Verified 07/21/23 23:23) Rash Penicillins Allergy (Verified 07/21/23 23:22) Rash propoxyphene HCl [From Darvon] Allergy (Verified 07/21/23 23:22) PASS OUT Home Medications: Propranolol HCl [Inderal 20 MG] 40 mg PO BID 02/20/19 [History] levETIRAcetam [Levetiracetam] 1,250 mg PO BID 02/20/19 [History] Lorazepam 0.5 mg [Ativan 0.5 MG] 1 mg PO TIDPRN PRN 12/29/21 [History] Hydroxychloroquine Sulfate 200 mg PO DAILY 02/19/23 [History] Prazosin HCl 2 mg PO HS 02/19/23 [History] Ropinirole 2Mg [Requip 2Mg Tab] 2 mg PO HS 02/19/23 [History] lamoTRIgine [Lamictal] 150 mg PO HS 02/19/23 [History] Erenumab-Aooe [Aimovig Autoinjector] 175 mg SQ UD 05/23/23 [History] Trihexyphenidyl HCl 5 mg PO TID PRN PRN 05/23/23 [History] lamoTRIgine [Lamotrigine] 200 mg PO DAILY 06/11/23 [History] Hx Tetanus, Diphtheria Vaccination/Date Given: Yes Hx Influenza Vaccination/Date Given: Yes Hx Pneumococcal Vaccination/Date Given: No Immunizations Up to Date: Yes Travel Risk - International Travel Have you traveled outside of the country in past 3 weeks: No - Coronavirus Screening Are you exhibiting any of the following symptoms?: No Close contact with a COVID-19 positive Pt in past 14-21 Days: No - Vaccine Status Have you recieved a 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: Yes 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 - Review of Systems Constitutional: No Symptoms Eyes: No Symptoms Ears, Nose, & Throat: No Symptoms Respiratory: No Symptoms Cardiac: No Symptoms Abdominal/Gastrointestinal: No Symptoms Genitourinary Symptoms: No Symptoms Musculoskeletal: No Symptoms Skin: Rash, Dryness Neurological: No Symptoms Psychological: No Symptoms Endocrine: No Symptoms Hematologic/Lymphatic: No Symptoms Immunological/Allergic: No Symptoms All Other Systems: Reviewed and Negative - Past Medical History Pertinent Past Medical History: Yes Neurological History: Seizures ENT History: No Pertinent History Cardiac History: High Cholesterol Respiratory History: COPD Endocrine Medical History: Other Musculoskeletal History: Degenerative Disk Disease, Fibromyalgia GI Medical History: Esophageal Disorder, GERD History: No Pertinent History Psycho-Social History: Anxiety, Bipolar, Depression, Panic Disorder Female Reproductive Disorders: Abnormal Uterine Bleeding Other Medical History: Lupus, Neuropathy, DDD, bipolar 1 schizophrenia, PTSD - Past Surgical History Past Surgical History: Yes Neuro Surgical History: No Pertinent History Cardiac: No Pertinent History Respiratory: No Pertinent History Gastrointestinal: No Pertinent History Genitourinary: No Pertinent History Musculoskeletal: Other Female Surgical History: Section, Tubal Ligation, Other Other Surgical History: ABLATION - TUBAL LIGATION. BILATERAL WRIST SURGERY. PLATE AND TWO SCREWS IN THE BACK OF NECK. 12/26/20 Surgery to back. cadaver bone in neck - Social History Smoking Status: Current every day smoker How long have you smoked: 32 yrs Exposure to second hand smoke: Yes Drug Use: none Patient Lives Alone: No - Female History Hx Now: No - Nursing Vital Signs Nursing Vital Signs: Initial Vital Signs Temperature 97.4 F 07/21/23 23:23 Respiratory Rate 20 07/21/23 23:23 Blood Pressure 118/82 07/21/23 23:23 O2 Sat by Pulse Oximetry 96 07/21/23 23:23 Pain Scale Pain Intensity 5 - Physical Exam General Appearance: no apparent distress, alert, anxiety, obese Eye Exam: PERRL/EOMI, eyes nml inspection Ears, Nose, Throat Exam: normal ENT inspection, moist mucous membranes Neck Exam: normal inspection, non-tender, supple, full range of motion Respiratory Exam: airway intact, No chest tenderness, No respiratory distress Gastrointestinal/Abdomen Exam: No tenderness Rectal Exam: not done Back Exam: normal inspection, normal range of motion, No CVA tenderness, No vertebral tenderness Extremity Exam: normal inspection, normal range of motion, pelvis stable Neurologic Exam: alert, 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, cooperative, banquet stewardess II-XII nml as tested, normal mood/affect, nml cerebellar function, nml station & gait, sensation nml Skin Exam: dry (Skin is very dry and it is generalized dryness), rash (There are 4 areas of itchy, tender "rash" that the patient states are present. They are oval in shape slightly pink patches.) Lymphatic Exam: No adenopathy SpO2 Interpretation: normal SpO2: 96 O2 Delivery: Room Air - Course Nursing assessment & vital signs reviewed: Yes Lab/Rad Data: Laboratory Results 07/21/23 Range/Units 23:54 Influenza Type A Ag NEGATIVE (NEGATIVE) Influenza Type B Ag NEGATIVE (NEGATIVE) RSV (PCR) NEGATIVE (NEGATIVE) SARS-CoV-2 (PCR) NEGATIVE (NEGATIVE) - Progress Progress Note: 07/22/23 00:07 This patient's medical issue is 1 of low complexity. Level complexity in the work-up performed is based on review of the patient's past medical history, review the patient's medication list, review of the patient's drug allergies list, history present illness and physical findings on examination. In order to evaluate whether or not the patient has arthralgias and myalgias secondary to COVID 19, influenza A and B, and RSV viruses we will perform these tests. Patient will likely receive steroid injection and take-home hydrocodone elixir. We will plan on remotely sending a prescription of prednisone to the patient's pharmacy for further treatment. Patient will also be advised to apply unscented moisturizing cream to her skin 2-3 times a day. She will also need to follow- up with her platform consultant and a kiln fireman. Counseled pt/family regarding: lab results, diagnosis, need for follow-up Medical Desision Making - Diagnostic Testing Diagnostic test were ordered, analyzed, and reviewed by me: Yes - Risk of complications The pt has a mod risk of morbidity or mortality based on: Need for prescription drug management - Departure Departure Disposition: Home Clinical Impression: Contact dermatitis, Dry skin dermatitis Condition: Stable Critical Care Time: No Referrals: JUDY BLAND MD [Primary Care Provider] - Follow up/PCP as directed Additional Instructions: Use unscented moisturizing cream 2-3 times a day to general body skin. Take your steroids and other medication as prescribed. Follow-up with your primary care provider, platform consultant and a kiln fireman by phone later today to make arrangements for follow-up appointment for further evaluation and management. Monitor your blood sugar closely while taking the steroids. Prescriptions: Prednisone 10 mg [Deltasone 10 mg] 10 mg PO TID #12 tablet
[2023-07-22 00:14] VITALS: PULSE 82
[2023-07-22 00:32] LABS: INFLUENZA A NEGATIVE (NEGATIVE); INFLUENZA B NEGATIVE (NEGATIVE); RESPIRATORY SYNCTIAL VIRUS NEGATIVE (NEGATIVE); SARS-CoV-2 Xpert Express NEGATIVE (NEGATIVE)
[2023-07-22] MEDS ORDERED: HYDROCODONE-ACETAMIN 2.5-108/5 ML SOLUTION PO STA (00:39)
[2023-07-22] MEDS ORDERED: DELTASONE 20 MG PO ONE (00:39)
[2023-07-22] MEDS ORDERED: DELTASONE 20 MG ONE (00:46)
[2023-07-22] MEDS ORDERED: HYDROCODONE-ACETAMIN 2.5-108/5 ML SOLUTION ONE (00:46)
[2023-07-22 01:00] VITALS: BP 96/63; RESP 18; O2SAT 99
== END 2023-07-22 01:00 | disposition home or self-care (01) ==
LOC: ED 23:19
DX: L25.9 Unspecified contact dermatitis, unspecified cause (principal); L85.3 Xerosis cutis; E78.5 Hyperlipidemia, unspecified; Z79.52 Long term (current) use of systemic steroids; Z79.899 Other long term (current) drug therapy; Z72.0 Tobacco use
CPT/HCPCS: 0241U; 99283; A9270-GY

== ENCOUNTER 2023-08-19 17:34 | Emergency (ER) | payer OTHER ==
[2023-08-19 17:37] VITALS: TEMP 97.5
[2023-08-19] MEDS ORDERED: Sodium Chloride 0.9% 1000 ML 1,000 ML IV SCH (17:45)
[2023-08-19 17:48] VITALS: PULSE 80
[2023-08-19 17:54] LABS: Absolute Neutrophil Ct (ANC) 5.01 x10^3/uL (1.4-6.9); BASOPHIL % 1.2 % (0.0-0.4); Eosinophil % 6.5 % (0.00-5.0); Eosinophil (Absolute #) 0.52 x10^3/uL (0-0.5); Hematocrit 43.6 % (35-47); Hemoglobin 14.8 g/dL (12.0-16.0); IMMATURE GRAN # 0.03 x10^3u/L (0.00-0.03); IMMATURE GRAN % 0.4 % (0.00-0.4); Lymphocyte (Absolute #) 1.75 x10^3/uL (1.0-4.6); Lymphocytes % 21.8 % (24.0-44.0); Mean Cell Volume 97.5 fL (78-100); Mean Corpuscular Hemoglobin 33.1 pg (26-32); Mean Corpuscular Hgb Concent. 33.9 g/dL (32-36); Mean Platelet Volume 9.4 fL (7.5-11.0); Monocyte (Absolute #) 0.62 x10^3/uL (0.0-1.3); Monocytes % 7.7 % (0.0-12.0); Neutrophil % 62.4 % (36.0-66.0); Platelet Count 386 x10^3/uL (150-450); Red Blood Count 4.47 x10^6/uL (4.1-5.4); Red Cell Distribution Width 12.4 % (11.5-14.0)
--- NOTE | 2023-08-19 17:56 | ERPHSYRPT ---
- History of Present Illness Time Seen by Provider: 08/19/23 17:45 Historian: patient Exam Limitations: no limitations Patient Subjective Stated Complaint: pt here for chest pain to [facility] chest today, she states she has chronic chest pain. she also states she had a syncopal episode yesterday and has felt weak since, Triage Nursing Assessment: pt alert, walked in, resp easy, skin w/d/p, abd soft, holds chest at times and states putting pressure on it helps Physician History: Patient is a 47-year-old white female who has chronic frequent chest pain presents with chest pain tonight that is much more severe and more tight than usual. She rates this pain as 5 of 10. She had a syncopal episode yesterday which lasted several minutes and has she has been tired since the syncope . She denies any fever chills sweats although she says she has been clammy. She denies nausea vomiting or diarrhea she has had some shortness of air. Other medical problems include labile hypertension systemic lupus erythematosus fibromyalgia neuropathy degenerative joint disease and migraines. She also complains of a severe headache recently not relieved by her usual migraine medicines. Timing/Duration: yesterday Activities at Onset: none Quality: tightness Location: substernal Chest Pain Radiation: no radiation Severity of Pain-Max: moderate Severity of Pain-Current: moderate Associated Symptoms: fatigue, weakness Aspirin Treatment Today: 81 mg x 1 Allergies/Adverse Reactions: ca Allergy (Severe, Verified 08/19/23 17:35) Swelling pregabalin [From Lyrica] Allergy (Severe, Verified 08/19/23 17:35) amoxicillin Allergy (Verified 08/19/23 17:35) Rash Penicillins Allergy (Verified 08/19/23 17:35) Rash propoxyphene HCl [From Darvon] Allergy (Verified 08/19/23 17:35) PASS OUT Home Medications: Propranolol HCl [Inderal 20 MG] 40 mg PO BID 02/20/19 [History] levETIRAcetam [Levetiracetam] 1,250 mg PO BID 02/20/19 [History] Lorazepam 0.5 mg [Ativan 0.5 MG] 1 mg PO TIDPRN PRN 12/29/21 [History] Hydroxychloroquine Sulfate 200 mg PO DAILY 02/19/23 [History] Prazosin HCl 2 mg PO HS 02/19/23 [History] Ropinirole 2Mg [Requip 2Mg Tab] 2 mg PO HS 02/19/23 [History] lamoTRIgine [Lamictal] 150 mg PO HS 02/19/23 [History] Erenumab-Aooe [Aimovig Autoinjector] 175 mg SQ UD 05/23/23 [History] Trihexyphenidyl HCl 5 mg PO TID PRN PRN 05/23/23 [History] lamoTRIgine [Lamotrigine] 200 mg PO DAILY 06/11/23 [History] Hx Tetanus, Diphtheria Vaccination/Date Given: Yes Hx Influenza Vaccination/Date Given: Yes Hx Pneumococcal Vaccination/Date Given: No Immunizations Up to Date: Yes Travel Risk - International Travel Have you traveled outside of the country in past 3 weeks: No - Coronavirus Screening Are you exhibiting any of the following symptoms?: No - Vaccine Status Have you recieved a 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: Yes [employer]: [employer] - Vaccination Dates Date of 2cond Vaccination (if applicable): 2020 - Review of Systems Constitutional: Fatigue, Weakness, No Fever, No Chills Eyes: No Symptoms Ears, Nose, & Throat: No Symptoms Respiratory: Dyspnea, No Cough Cardiac: Chest Pain, No Edema, No Syncope Abdominal/Gastrointestinal: No Abdominal Pain, No Nausea, No Vomiting, No Diarrhea Genitourinary Symptoms: No Dysuria Musculoskeletal: No Back Pain, No Neck Pain Skin: No Rash Neurological: Headache, No Dizziness, No Focal Weakness, No Sensory Changes Psychological: No Symptoms Endocrine: No Symptoms All Other Systems: Reviewed and Negative - Past Medical History Pertinent Past Medical History: Yes Neurological History: Seizures ENT History: No Pertinent History Cardiac History: High Cholesterol Respiratory History: COPD Endocrine Medical History: Other Musculoskeletal History: Degenerative Disk Disease, Fibromyalgia GI Medical History: Esophageal Disorder, GERD History: No Pertinent History Psycho-Social History: Anxiety, Bipolar, Depression, Panic Disorder Female Reproductive Disorders: Abnormal Uterine Bleeding Other Medical History: Lupus, Neuropathy, DDD, bipolar 1 schizophrenia, PTSD - Past Surgical History Past Surgical History: Yes Neuro Surgical History: No Pertinent History Cardiac: No Pertinent History Respiratory: No Pertinent History Gastrointestinal: No Pertinent History Genitourinary: No Pertinent History Musculoskeletal: Other Female Surgical History: Section, Tubal Ligation, Other Other Surgical History: ABLATION - TUBAL LIGATION. BILATERAL WRIST SURGERY. PLATE AND TWO SCREWS IN THE BACK OF NECK. 12/26/20 Surgery to back. cadaver bone in neck - Social History Smoking Status: Current every day smoker How long have you smoked: 32 yrs Exposure to second hand smoke: Yes Drug Use: none Patient Lives Alone: No - Female History Hx Last Menstrual Period: none Hx Now: No - Nursing Vital Signs Nursing Vital Signs: Initial Vital Signs Temperature 97.5 F 08/19/23 17:36 Pulse Rate 84 08/19/23 17:36 Respiratory Rate 18 08/19/23 17:36 Blood Pressure 131/98 08/19/23 17:36 O2 Sat by Pulse Oximetry 100 08/19/23 17:36 Pain Scale Pain Intensity 5 - Physical Exam General Appearance: mild distress, alert Eye Exam: PERRL/EOMI, eyes nml inspection Ears, Nose, Throat Exam: normal ENT inspection, moist mucous membranes Neck Exam: normal inspection, non-tender, supple, full range of motion Respiratory Exam: normal breath sounds, lungs clear, No respiratory distress Cardiovascular Exam: regular rate/rhythm, normal heart sounds Gastrointestinal/Abdomen Exam: soft, No tenderness, No mass Back Exam: normal inspection, No CVA tenderness, No vertebral tenderness Extremity Exam: normal inspection, normal range of motion Neurologic Exam: alert, 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, cooperative, normal mood/affect, sensation nml, No motor deficits Skin Exam: normal color, warm, dry SpO2: 100 - Course Nursing assessment & vital signs reviewed: Yes EKG Interpreted by Me: RATE ([id number]), Sinus Rhythm, Left [place] Deviation, Non- specific ST Changes - Radiology Exams Chest X-ray Interpretation: Interpreted by me, Negative Ordered Tests: Active Orders 24 hr Category Date Time Status Clean Catch Urine Specimen STAT Care 08/19/23 17:42 Active EKG-ER Only STAT Care 08/19/23 17:42 Active IV Insertion STAT Care 08/19/23 17:42 Active CHEST 1 VIEW (PORTABLE) Stat Exams 08/19/23 17:43 Taken AMYLASE Stat Lab 08/19/23 17:45 Completed CBC W DIFF Stat Lab 08/19/23 17:45 Completed CMP Stat Lab 08/19/23 17:45 Completed D-DIMER QUANTITATIVE Stat Lab 08/19/23 17:45 Completed Erythrocyte Sedimentation Rate Stat Lab 08/19/23 17:45 Completed LIPASE Stat Lab 08/19/23 17:45 Completed Lactic Acid Stat Lab 08/19/23 17:42 Completed MAGNESIUM Stat Lab 08/19/23 17:45 Completed NT PRO BNPII Stat Lab 08/19/23 17:45 Completed PROTIME WITH INR Stat Lab 08/19/23 17:45 Completed PTT Stat Lab 08/19/23 17:45 Completed TROPONIN Q4H Lab 08/19/23 17:45 Completed TROPONIN Q4H Lab 08/19/23 21:45 Ordered TROPONIN Q4H Lab 08/20/23 01:45 Ordered UA W/RFX UR CULTURE Stat Lab 08/19/23 17:43 Ordered Urine Triage Profile Stat Lab 08/19/23 17:43 Ordered Medication Summary Generic Name Dose Route Start Last Admin Trade Name Freq PRN Reason Stop Dose Admin Sodium Chloride 1,000 mls @ 200 mls/hr 08/19/23 17:45 08/19/23 17:58 Sodium Chloride 0.9% 1000 Ml IV 09/18/23 17:44 200 mls/hr .Q5H MINI Administration Discontinued Medications Generic Name Dose Route Start Last Admin Trade Name Freq PRN Reason Stop Dose Admin Hydromorphone HCl 1 mg 08/19/23 17:59 08/19/23 18:11 Hydromorphone 1 Mg/1ml Inj IV 08/19/23 18:00 1 mg STAT ONE Administration Hydromorphone HCl Confirm 08/19/23 18:03 Hydromorphone 1 Mg/1ml Inj Administered 08/19/23 18:04 Dose 1 mg .ROUTE .STK-MED ONE Ondansetron HCl 4 mg 08/19/23 18:02 08/19/23 18:10 Ondansetron Hcl 4 Mg/2 Ml Vial IV 08/19/23 18:03 4 mg STAT ONE Administration Ondansetron HCl Confirm 08/19/23 18:03 Ondansetron Hcl 4 Mg/2 Ml Vial Administered 08/19/23 18:04 Dose 4 mg .ROUTE .STK-MED ONE Lab/Rad Data: Laboratory Result Diagrams 08/19/23 17:45 08/19/23 17:45 Laboratory Results 08/19/23 08/19/23 08/19/23 Range/Units 18:04 17:45 17:45 WBC (4.0-10.5) x10^3/uL RBC (4.1-5.4) x10^6/uL Hgb (12.0-16.0) g/dL Hct (35-47) % MCV (78-100) fL MCH (26-32) pg MCHC (32-36) g/dL RDW (11.5-14.0) % Plt Count (150-450) x10^3/uL MPV (7.5-11.0) fL Gran % (36.0-66.0) % Immature Gran % (Auto) (0.00-0.4) % Nucleat RBC Rel Count (0.00-0.1) % Eos # (Auto) (0-0.5) x10^3/uL Immature Gran # (Auto) (0.00-0.03) x10^3u/L Absolute Lymphs (auto) (1.0-4.6) x10^3/uL Absolute Monos (auto) (0.0-1.3) x10^3/uL Absolute Nucleated RBC (0.00-0.01) x10^3u/L Lymphocytes % (24.0-44.0) % Monocytes % (0.0-12.0) % Eosinophils % (0.00-5.0) % Basophils % (0.0-0.4) % Absolute Granulocytes (1.4-6.9) x10^3/uL Basophils # (0-0.4) x10^3/uL ESR (0-20) mm/hr PT 9.8 (9.4-12.5) SECONDS INR 0.89 (0.8-3.0) APTT 32.0 (25.1-36.5) SECONDS D-Dimer < 0.19 (0.0-0.50) mg/L Sodium (137-145) mmol/L Potassium (3.5-5.1) mmol/L Chloride (98-107) mmol/L Carbon Dioxide (22-30) mmol/L Anion Gap (5-15) MEQ/L BUN (7-17) mg/dL Creatinine (0.52-1.04) mg/dL Estimated GFR ML/MIN Glucose (74-106) mg/dL Lactic Acid (0.4-2.0) Calcium (8.4-10.2) mg/dL Magnesium (1.6-2.3) mg/dL Total Bilirubin (0.2-1.3) mg/dL AST (14-36) U/L ALT (0-35) U/L Alkaline Phosphatase (38-126) U/L Troponin I < 0.012 (0.000-0.034) ng/mL NT-Pro-B Natriuret Pep 34.3 (<300) pg/mL Serum Total Protein (6.3-8.2) g/dL Albumin (3.5-5.0) g/dL Amylase (30-110) U/L Lipase (23-300) U/L Influenza Type A Ag NEGATIVE (NEGATIVE) Influenza Type B Ag NEGATIVE (NEGATIVE) RSV (PCR) NEGATIVE (NEGATIVE) SARS-CoV-2 (PCR) NEGATIVE (NEGATIVE) 08/19/23 08/19/23 08/19/23 Range/Units 17:45 17:45 17:42 WBC 8.0 (4.0-10.5) x10^3/uL RBC 4.47 (4.1-5.4) x10^6/uL Hgb 14.8 (12.0-16.0) g/dL Hct 43.6 (35-47) % MCV 97.5 (78-100) fL MCH 33.1 H (26-32) pg MCHC 33.9 (32-36) g/dL RDW 12.4 (11.5-14.0) % Plt Count 386 (150-450) x10^3/uL MPV 9.4 (7.5-11.0) fL Gran % 62.4 (36.0-66.0) % Immature Gran % (Auto) 0.4 (0.00-0.4) % Nucleat RBC Rel Count 0.0 (0.00-0.1) % Eos # (Auto) 0.52 H (0-0.5) x10^3/uL Immature Gran # (Auto) 0.03 (0.00-0.03) x10^3u/L Absolute Lymphs (auto) 1.75 (1.0-4.6) x10^3/uL Absolute Monos (auto) 0.62 (0.0-1.3) x10^3/uL Absolute Nucleated RBC 0.00 (0.00-0.01) x10^3u/L Lymphocytes % 21.8 L (24.0-44.0) % Monocytes % 7.7 (0.0-12.0) % Eosinophils % 6.5 H (0.00-5.0) % Basophils % 1.2 (0.0-0.4) % Absolute Granulocytes 5.01 (1.4-6.9) x10^3/uL Basophils # 0.10 (0-0.4) x10^3/uL ESR 33 H (0-20) mm/hr PT (9.4-12.5) SECONDS INR (0.8-3.0) APTT (25.1-36.5) SECONDS D-Dimer (0.0-0.50) mg/L Sodium 140 (137-145) mmol/L Potassium 4.0 (3.5-5.1) mmol/L Chloride 105 (98-107) mmol/L Carbon Dioxide 28 (22-30) mmol/L Anion Gap 11.2 (5-15) MEQ/L BUN 17 (7-17) mg/dL Creatinine 0.91 (0.52-1.04) mg/dL Estimated GFR 77.8 ML/MIN Glucose 106 (74-106) mg/dL Lactic Acid 0.8 (0.4-2.0) Calcium 9.2 (8.4-10.2) mg/dL Magnesium 2.1 (1.6-2.3) mg/dL Total Bilirubin 0.40 (0.2-1.3) mg/dL AST 18 (14-36) U/L ALT 12 (0-35) U/L Alkaline Phosphatase 73 (38-126) U/L Troponin I (0.000-0.034) ng/mL NT-Pro-B Natriuret Pep (<300) pg/mL Serum Total Protein 8.1 (6.3-8.2) g/dL Albumin 4.7 (3.5-5.0) g/dL Amylase 54 (30-110) U/L Lipase 87 (23-300) U/L Influenza Type A Ag (NEGATIVE) Influenza Type B Ag (NEGATIVE) RSV (PCR) (NEGATIVE) SARS-CoV-2 (PCR) (NEGATIVE) - Departure Departure Disposition: Home Clinical Impression: Chest pain, Migraine Condition: Stable Critical Care Time: No Referrals: JUDY BLAND MD [NON-STAFF PHY W/O PRIVILEGES] - Follow up/PCP as directed Instructions: Chest Pain (DC)
[2023-08-19] MEDS ORDERED: Sodium Chloride 0.9% 1000 ML 1,000 ML ONE (17:57)
[2023-08-19] MEDS ORDERED: Hydromorphone 1 mg/ml Injection IV ONE (17:59)
[2023-08-19] MEDS ORDERED: Zofran 4 MG/2 ML VIAL IV ONE (18:02)
[2023-08-19] MEDS ORDERED: Hydromorphone 1 mg/ml Injection ONE (18:03)
[2023-08-19] MEDS ORDERED: Zofran 4 MG/2 ML VIAL ONE (18:03)
[2023-08-19 18:10] LABS: ALBUMIN 4.7 g/dL (3.5-5.0); ANION GAP 11.2 MEQ/L (5-15); BILIRUBIN,TOTAL 0.4 mg/dL (0.2-1.3); Calcium 9.2 mg/dL (8.4-10.2); Creatinine 1 0.91 mg/dL (0.52-1.04); EST GLOMERULAR FILTRATION RATE 77.8 ML/MIN; MAGNESIUM 2.1 mg/dL (1.6-2.3); Total Protein 8.1 g/dL (6.3-8.2)
[2023-08-19 18:12] LABS: Erythrocyte Sedimentation Rate 33 mm/hr (0-20)
[2023-08-19 18:28] LABS: NT PRO BNPII 34.3 pg/mL (<300); TROPONIN < 0.012 ng/mL (0.000-0.034)
[2023-08-19 18:40] LABS: INR 0.89 (0.8-3.0); PROTIME 9.8 SECONDS (9.4-12.5)
[2023-08-19 18:44] LABS: INFLUENZA A NEGATIVE (NEGATIVE); INFLUENZA B NEGATIVE (NEGATIVE); RESPIRATORY SYNCTIAL VIRUS NEGATIVE (NEGATIVE); SARS-CoV-2 Xpert Express NEGATIVE (NEGATIVE)
[2023-08-19 18:53] LABS: D-DIMER QUANTITATIVE < 0.19 mg/L (0.0-0.50)
[2023-08-19 18:56] VITALS: BP 113/81; RESP 20
[2023-08-19 18:57] VITALS: O2SAT 100
--- NOTE | 2023-08-20 08:42 | XRAY ---
Indication: Chest pain. Comparison: July 31, 2022. Portable chest less inflated with new minimal bibasilar infiltrates versus atelectasis. Remaining heart and upper lungs unremarkable. Bony thorax intact again with incidental cervical fusion hardware. Comment: Lung findings not reported by interpreting ER clinician. Telephone report given to Dr. Barrios at 0838 hrs on August 20, 2023.
== END 2023-08-19 19:00 | disposition home or self-care (01) ==
LOC: ED 17:34
DX: R07.9 Chest pain, unspecified (principal); G43.909 Migraine, unspecified, not intractable, without status migrainosus; R91.8 Other nonspecific abnormal finding of lung field; R06.02 Shortness of breath; I10 Essential (primary) hypertension; E78.5 Hyperlipidemia, unspecified; Z79.899 Other long term (current) drug therapy; Z72.0 Tobacco use
CPT/HCPCS: 0241U; 36000; 36415; 71045; 80053; 82150; 83605; 83690; 83735; 83880; 84484; 85025; 85379; 85610; 85652; 85730; 93005; 96374; 96375; 99284; J1170; J2405

== ENCOUNTER 2023-08-22 17:38 | Emergency (ER) | payer OTHER ==
[2023-08-22 18:17] VITALS: TEMP 98.1
[2023-08-22] MEDS ORDERED: TORAdol 30 mg Injection IV ONE (18:23)
[2023-08-22] MEDS ORDERED: Sodium Chloride 0.9% 1000 ML 1,000 ML IV SCH (18:30)
--- NOTE | 2023-08-22 18:31 | ERPHSYRPT ---
- History of Present Illness Historian: patient Exam Limitations: no limitations Patient Subjective Stated Complaint: Pt reports yesterday she started having lower abdominal pain that is across abdomen and comes up to below umbilicus. Also reports she has urinary frequency and often feels she is not completely emptying bladder. Reports she was here on 08/19/23 for chest pain, placed on zpack for potentially pneumonia starting. Denies any abnormalities of bowel movements. Triage Nursing Assessment: Pt alert and oriented x3. Respirations easy/nonlabored. Skin w/p/d. Abdomen soft/round/tender to bilat lower quads. Physician History: A 47 years old female with past medical history of lupus, fibromyalgia rheumatica, neuropathies. The patient is presenting to the emergency room complaining of lower abdominal pain that she has been having since yesterday. The patient states that around midnight she vomited 1 time. Her last bowel movement was this morning and was normal. She is having urinary frequency she feels that her bladder is not empty. She is also feeling pressure down into her cervix area. She denies any vaginal bleeding or discharge. Her last menstrual period was probably 9 years ago she has history of uterine ablation. The patient has been taking Tylenol alternating with ibuprofen without much relief. She denies any fever or chills. No bleeding per rectum. Allergies/Adverse Reactions: ca Allergy (Severe, Verified 08/22/23 18:09) Swelling pregabalin [From Lyrica] Allergy (Severe, Verified 08/22/23 18:09) amoxicillin Allergy (Verified 08/22/23 18:09) Rash Penicillins Allergy (Verified 08/22/23 18:09) Rash propoxyphene HCl [From Darvon] Allergy (Verified 08/22/23 18:09) PASS OUT Home Medications: Propranolol HCl [Inderal 20 MG] 40 mg PO BID 02/20/19 [History] levETIRAcetam [Levetiracetam] 1,250 mg PO BID 02/20/19 [History] Lorazepam 0.5 mg [Ativan 0.5 MG] 1 mg PO TIDPRN PRN 12/29/21 [History] Hydroxychloroquine Sulfate 200 mg PO DAILY 02/19/23 [History] Prazosin HCl 2 mg PO HS 02/19/23 [History] Ropinirole 2Mg [Requip 2Mg Tab] 2 mg PO HS 02/19/23 [History] lamoTRIgine [Lamictal] 150 mg PO HS 02/19/23 [History] Erenumab-Aooe [Aimovig Autoinjector] 175 mg SQ UD 05/23/23 [History] Trihexyphenidyl HCl 5 mg PO TID PRN PRN 05/23/23 [History] lamoTRIgine [Lamotrigine] 200 mg PO DAILY 06/11/23 [History] Hx Tetanus, Diphtheria Vaccination/Date Given: Yes Hx Influenza Vaccination/Date Given: Yes Hx Pneumococcal Vaccination/Date Given: No Travel Risk - International Travel Have you traveled outside of the country in past 3 weeks: No - Coronavirus Screening Are you exhibiting any of the following symptoms?: No Close contact with a COVID-19 positive Pt in past 14-21 Days: No - Vaccine Status Have you recieved a 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: Yes [employer]: [email or web address] - Vaccination Dates Date of 2cond Vaccination (if applicable): 2020 - Review of Systems Constitutional: No Fever, No Chills Eyes: No Symptoms Ears, Nose, & Throat: No Symptoms Respiratory: No Cough, No Dyspnea Cardiac: No Chest Pain, No Edema, No Syncope Abdominal/Gastrointestinal: Abdominal Pain, Vomiting, No Nausea, No Diarrhea Genitourinary Symptoms: Frequency, No Dysuria Musculoskeletal: No Back Pain, No Neck Pain Skin: No Rash Neurological: No Dizziness, No Focal Weakness, No Sensory Changes Psychological: No Symptoms Endocrine: No Symptoms Hematologic/Lymphatic: No Symptoms All Other Systems: Reviewed and Negative - Past Medical History Pertinent Past Medical History: Yes Neurological History: Seizures ENT History: No Pertinent History Cardiac History: High Cholesterol Respiratory History: COPD Endocrine Medical History: Other Musculoskeletal History: Degenerative Disk Disease, Fibromyalgia GI Medical History: Esophageal Disorder, GERD History: No Pertinent History Psycho-Social History: Anxiety, Bipolar, Depression, Panic Disorder Female Reproductive Disorders: Abnormal Uterine Bleeding Other Medical History: Lupus, Neuropathy, DDD, bipolar 1 schizophrenia, PTSD - Past Surgical History Past Surgical History: Yes Neuro Surgical History: No Pertinent History Cardiac: No Pertinent History Respiratory: No Pertinent History Gastrointestinal: No Pertinent History Genitourinary: No Pertinent History Musculoskeletal: Other Female Surgical History: Section, Tubal Ligation, Other Other Surgical History: ABLATION - TUBAL LIGATION. BILATERAL WRIST SURGERY. PLATE AND TWO SCREWS IN THE BACK OF NECK. 12/26/20 Surgery to back. cadaver bone in neck - Social History Smoking Status: Current every day smoker How long have you smoked: 32 yrs Exposure to second hand smoke: Yes Drug Use: none Patient Lives Alone: No - Female History Hx Last Menstrual Period: 1997 - tubal Hx Now: No - Nursing Vital Signs Nursing Vital Signs: Initial Vital Signs Temperature 98.1 F 08/22/23 17:59 Pulse Rate 82 08/22/23 17:59 Respiratory Rate 16 08/22/23 17:59 Blood Pressure 124/78 08/22/23 17:59 O2 Sat by Pulse Oximetry 98 08/22/23 17:59 Pain Scale Pain Intensity 7 - Physical Exam General Appearance: no apparent distress, alert Eye Exam: PERRL/EOMI, eyes nml inspection Ears, Nose, Throat Exam: normal ENT inspection, pharynx normal, moist mucous membranes Neck Exam: normal inspection, non-tender, supple, full range of motion Respiratory Exam: normal breath sounds, lungs clear, No respiratory distress Cardiovascular Exam: regular rate/rhythm, normal heart sounds Gastrointestinal/Abdomen Exam: soft, normal bowel sounds, tenderness, other (Bilateral lower quadrant suprapubic tenderness no rebound, guarding or rigidity.), No mass Back Exam: normal inspection, normal range of motion, No CVA tenderness, No vertebral tenderness Extremity Exam: normal inspection, normal range of motion, pelvis stable Neurologic Exam: alert, 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, cooperative, normal mood/affect, nml cerebellar function, sensation nml, No motor deficits Skin Exam: normal color, warm, dry SpO2: 98 Ordered Tests: Active Orders 24 hr Category Date Time Status ABDOMEN AND PELVIS W CONTRAST [CT] Stat Exams 08/22/23 18:25 Completed CBC W DIFF Stat Lab 08/22/23 18:52 Completed CMP Stat Lab 08/22/23 18:52 Completed CULTURE,URINE Stat Lab 08/22/23 18:33 Received LIPASE Stat Lab 08/22/23 18:52 Completed UA W/RFX UR CULTURE Stat Lab 08/22/23 18:33 Completed Medication Summary Generic Name Dose Route Start Last Admin Trade Name Freq PRN Reason Stop Dose Admin Sodium Chloride 1,000 mls @ 500 mls/hr 08/22/23 18:30 08/22/23 21:16 Sodium Chloride 0.9% 1000 Ml IV 09/21/23 18:29 Infused .Q2H MINI Infusion Discontinued Medications Generic Name Dose Route Start Last Admin Trade Name Manish PRN Reason Stop Dose Admin Fentanyl Citrate 50 mcg 08/22/23 20:48 08/22/23 20:52 Fentanyl Citrate 100 Mcg/2 Ml* Vial IV 08/22/23 20:49 50 mcg STAT ONE Administration Fentanyl Citrate Confirm 08/22/23 20:52 Fentanyl Citrate 100 Mcg/2 Ml* Vial Administered 08/22/23 20:53 Dose 100 mcg .ROUTE .STK-MED ONE Ceftriaxone Sodium/Dextrose 2 g in 50 mls @ 100 mls/hr 08/22/23 20:21 08/22/23 21:15 Rocephin 2 Gm-D5w 50ml Bag IV 08/22/23 20:50 Infused STAT STA Infusion Ceftriaxone Sodium/Dextrose Confirm 08/22/23 20:34 Rocephin 2 Gm-D5w 50ml Bag Administered 08/22/23 20:35 Dose 2 g in 50 mls @ ud IV .STK-MED ONE Ketorolac Tromethamine 30 mg 08/22/23 18:23 08/22/23 18:57 Ketorolac Tromethamine 30 Mg/Ml Inj IV 08/22/23 18:24 30 mg STAT ONE Administration Ketorolac Tromethamine Confirm 08/22/23 18:55 Ketorolac Tromethamine 30 Mg/Ml Inj Administered 08/22/23 18:56 Dose 30 mg .ROUTE .STK-MED ONE Ondansetron HCl 4 mg 08/22/23 20:49 08/22/23 20:52 Ondansetron Hcl 4 Mg/2 Ml Vial IV 08/22/23 20:50 4 mg STAT ONE Administration Ondansetron HCl Confirm 08/22/23 20:50 Ondansetron Hcl 4 Mg/2 Ml Vial Administered 08/22/23 20:51 Dose 4 mg .ROUTE .STK-MED ONE Lab/Rad Data: Laboratory Result Diagrams 08/22/23 18:52 08/22/23 18:52 Laboratory Results 08/22/23 08/22/23 08/22/23 Range/Units 18:52 18:52 18:33 WBC 9.9 (4.0-10.5) x10^3/uL RBC 4.10 (4.1-5.4) x10^6/uL Hgb 13.3 (12.0-16.0) g/dL Hct 40.2 (35-47) % MCV 98.0 (78-100) fL MCH 32.4 H (26-32) pg MCHC 33.1 (32-36) g/dL RDW 12.3 (11.5-14.0) % Plt Count 354 (150-450) x10^3/uL MPV 9.5 (7.5-11.0) fL Gran % 66.4 H (36.0-66.0) % Immature Gran % (Auto) 0.3 (0.00-0.4) % Nucleat RBC Rel Count 0.0 (0.00-0.1) % Eos # (Auto) 0.45 (0-0.5) x10^3/uL Immature Gran # (Auto) 0.03 (0.00-0.03) x10^3u/L Absolute Lymphs (auto) 2.14 (1.0-4.6) x10^3/uL Absolute Monos (auto) 0.58 (0.0-1.3) x10^3/uL Absolute Nucleated RBC 0.00 (0.00-0.01) x10^3u/L Lymphocytes % 21.7 L (24.0-44.0) % Monocytes % 5.9 (0.0-12.0) % Eosinophils % 4.6 (0.00-5.0) % Basophils % 1.1 (0.0-0.4) % Absolute Granulocytes 6.56 (1.4-6.9) x10^3/uL Basophils # 0.11 (0-0.4) x10^3/uL Sodium 141 (137-145) mmol/L Potassium 3.6 (3.5-5.1) mmol/L Chloride 106 (98-107) mmol/L Carbon Dioxide 24 (22-30) mmol/L Anion Gap 14.8 (5-15) MEQ/L BUN 15 (7-17) mg/dL Creatinine 0.83 (0.52-1.04) mg/dL Estimated GFR 86.9 ML/MIN Glucose 122 H (74-106) mg/dL Calcium 9.1 (8.4-10.2) mg/dL Total Bilirubin 0.20 (0.2-1.3) mg/dL AST 19 (14-36) U/L ALT 12 (0-35) U/L Alkaline Phosphatase 60 (38-126) U/L Serum Total Protein 7.3 (6.3-8.2) g/dL Albumin 4.3 (3.5-5.0) g/dL Lipase 103 (23-300) U/L Urine Color Yellow (Yellow) Urine Appearance Cloudy A (Clear) Urine pH 5.0 (4.6-8.0) Ur Specific [place] >=1.030 A (1.005-1.030) Urine Protein Trace A (Negative) Urine Glucose (UA) Negative (Negative) mg/dL Urine Ketones Negative (Negative) Urine Blood Small A (Negative) Urine Nitrite Negative (Negative) Urine Bilirubin Negative (Negative) Urine Urobilinogen 1.0 A (0.2) mg/dL Ur Leukocyte Esterase Moderate A (Negative) U Hyaline Cast (Auto) NONE SEEN (0-2) /LPF Urine Microscopic RBC 11-20 A (0-5) /HPF Urine Microscopic WBC >100 A (0-5) /HPF Ur Epithelial Cells Rare (None Seen) /HPF Urine Bacteria None Seen (None Seen) /HPF Urine Culture Reflexed YES (NO) - Progress Progress Note: 08/22/23 18:29 A 47 years old female with past medical history of lupus, fibromyalgia rheumatica, neuropathies. The patient is presenting to the emergency room complaining of lower abdominal pain that she has been having since yesterday. The patient states that around midnight she vomited 1 time. Her last bowel movement was this morning and was normal. She is having urinary frequency she feels that her bladder is not empty. She is also feeling pressure down into her cervix area. She denies any vaginal bleeding or discharge. Her last menstrual period was probably 9 years ago she has history of uterine ablation. The patient has been taking Tylenol alternating with ibuprofen without much relief. She denies any fever or chills. No bleeding per rectum. Emergency room course and medical decision making. Lower abdominal pain Diverticulitis Urinary tract infection Kidney stone Small bowel obstruction The patient will be given Toradol 30 mg IV for her pain. We will check a CBC, CMP, UA, lipase and CT scan of abdomen and pelvis with IV contrast. 08/22/23 20:20 The patient's work-up, urinalysis 20 RBCs, more than 100 white blood cells, moderate leukocyte esterase. White count 9.9 hemoglobin 13 hematocrit 40, platelets 354. CT scan abdomen pelvis still pending. The patient will be given Rocephin 1 g IV. 08/22/23 22:19 The patient received her IV Rocephin antibiotics. She is feeling better her pain is less. CT scan of the abdomen and pelvis revealed hepatomegaly, small Leisenring hernia and a calcified splenic foci most probably granuloma. She also has a type I left renal cyst. Left adnexal hypodense area measuring 2 cm most likely a cyst recommended ultrasound. The patient will be discharged home on oral antibiotics for her urinary tract infection, Cipro 500 mg twice a day for 5 days. She needs to rest, increase her fluid intake. Follow-up with your family physician in 2 to 3 days. Follow-up as needed for any worsening symptoms. - Departure Departure Disposition: Home Clinical Impression: Lower abdominal pain Condition: Stable Critical Care Time: No Referrals: DOCTOR,NO FAMILY [Primary Care Provider] - Follow up/PCP as directed Prescriptions: Ciprofloxacin [Cipro 500 MG] 500 mg PO BID #10 tablet
[2023-08-22] MEDS ORDERED: TORAdol 30 mg Injection ONE (18:55)
[2023-08-22] MEDS ORDERED: Sodium Chloride 0.9% 1000 ML 1,000 ML ONE (18:55)
[2023-08-22 19:00] LABS: Absolute Neutrophil Ct (ANC) 6.56 x10^3/uL (1.4-6.9); BASOPHIL % 1.1 % (0.0-0.4); Basophil (Absolute #) 0.11 x10^3/uL (0-0.4); Eosinophil % 4.6 % (0.00-5.0); Eosinophil (Absolute #) 0.45 x10^3/uL (0-0.5); Hematocrit 40.2 % (35-47); Hemoglobin 13.3 g/dL (12.0-16.0); IMMATURE GRAN # 0.03 x10^3u/L (0.00-0.03); IMMATURE GRAN % 0.3 % (0.00-0.4); Lymphocyte (Absolute #) 2.14 x10^3/uL (1.0-4.6); Lymphocytes % 21.7 % (24.0-44.0); Mean Corpuscular Hemoglobin 32.4 pg (26-32); Mean Corpuscular Hgb Concent. 33.1 g/dL (32-36); Mean Platelet Volume 9.5 fL (7.5-11.0); Monocyte (Absolute #) 0.58 x10^3/uL (0.0-1.3); Monocytes % 5.9 % (0.0-12.0); Neutrophil % 66.4 % (36.0-66.0); Platelet Count 354 x10^3/uL (150-450); Red Cell Distribution Width 12.3 % (11.5-14.0); White Blood Count 9.9 x10^3/uL (4.0-10.5)
[2023-08-22 19:07] LABS: ADD URINE CULTURE? YES (NO); Appearance Cloudy (Clear); Bacteria None Seen /HPF (None Seen); Bilirubin Negative (Negative); Blood Small (Negative); Epithelial Cells Rare /HPF (None Seen); Glucose, Urine Negative (Negative); Hyaline Casts NONE SEEN /LPF (0-2); Ketones Negative (Negative); Leukocyte Esterase Moderate (Negative); Nitrite Negative (Negative); Protein,Urine Dip Trace (Negative); Specific Gravity >=1.030 (1.005-1.030); WBC >100 /HPF (0-5)
[2023-08-22 19:11] LABS: ALBUMIN 4.3 g/dL (3.5-5.0); ANION GAP 14.8 MEQ/L (5-15); BILIRUBIN,TOTAL 0.2 mg/dL (0.2-1.3); Calcium 9.1 mg/dL (8.4-10.2); Creatinine 1 0.83 mg/dL (0.52-1.04); EST GLOMERULAR FILTRATION RATE 86.9 ML/MIN; Potassium 3.6 mmol/L (3.5-5.1); Total Protein 7.3 g/dL (6.3-8.2)
[2023-08-22] MEDS ORDERED: ROCEPHIN 2 Gm-D5w 50ML BAG** 2 G/50 ML IVPB IV STA (20:21)
--- NOTE | 2023-08-22 20:30 | XRAY ---
CLINICAL HISTORY:abdominal pain COMPARISON:CT 05/23/2023. TECHNIQUE:A CT scan of the abdomen and pelvis was performed with IV contrast. No oral contrast. Coronal and sagittal reconstructive images were also obtained. CTDI 56.5mGy, DLP 2211.52 mGycm. FINDINGS: Scanned lung bases show a subtle orthostatic subpleural effect. Abdomen: Hepatomegaly, measuring 21.5 cm at the largest craniocaudal span in the right lobe. No focal or diffuse parenchymal abnormality. The portal vein, intrahepatic biliary radicals, and the bile ducts are normal. The gallbladder is contracted. There is no evidence of wall thickening/ pericholecystic collection. The pancreas and adrenal glands are unremarkable. Multiple calcified foci in the spleen, most likely corresponding to granulomas. The kidneys are normal in size and shape. There is a 2.5 cm simple cyst in the upper left renal pole. There is a 1.5 mm non-obstructive calculus in the lower pole of the left kidney. No calculus on the right kidney. No hydronephrosis bilaterally. A small hiatus hernia is noted. The stomach and the visualized small bowel loops are unremarkable. There is no evidence of significant mesenteric or retroperitoneal lymph node enlargement. No free fluid. Pelvis: The urinary bladder is unremarkable. The ascending colon, the transverse colon, the descending colon, and the rectosigmoid colon are unremarkable. The uterus is unremarkable. There is a 2 cm left adnexal hypodense area, probably cyst. There is a small left fat-filled inguinal hernia. The pelvic vasculature is unremarkable. No evidence of pelvic lymphadenopathy. Small calcifications are scattered within the pelvic cavity, likely phleboliths. No definite bony abnormalities could be depicted. IMPRESSION: 1. Hepatomegaly (21.5 cm). Clinical correlation is advised. 2. Small hiatus hernia. 3. Calcified splenic foci, most likely granulomas. 4. Left Bosniak type I renal cyst. 5. Left non-obstructive tiny renal calculus. 6. Left adnexal hypodense area measuring 2 cm, most likely a cyst. Further evaluation with the Ultrasound is recommended. Electronically Signed by: Nicolasa Romano MD. (08/22/2023 19:28:35 RN GYN)
[2023-08-22] MEDS ORDERED: ROCEPHIN 2 Gm-D5w 50ML BAG** 2 G/50 ML IVPB IV ONE (20:34)
[2023-08-22] MEDS ORDERED: SUBLIMAZE 100 MCG/2 ML IV ONE (20:48)
[2023-08-22] MEDS ORDERED: Zofran 4 MG/2 ML VIAL IV ONE (20:49)
[2023-08-22] MEDS ORDERED: Zofran 4 MG/2 ML VIAL ONE (20:50)
[2023-08-22] MEDS ORDERED: SUBLIMAZE 100 MCG/2 ML ONE (20:52)
[2023-08-22 21:03] VITALS: BP 115/67
[2023-08-22 22:33] VITALS: PULSE 71; RESP 18; O2SAT 97
== END 2023-08-22 22:33 | disposition home or self-care (01) ==
LOC: ED 17:38
DX: R10.30 Lower abdominal pain, unspecified (principal); R11.10 Vomiting, unspecified; R35.0 Frequency of micturition; E78.5 Hyperlipidemia, unspecified; Z79.899 Other long term (current) drug therapy; Z72.0 Tobacco use
CPT/HCPCS: 36000; 36415; 74177; 80053; 81001; 83690; 85025; 87086; 96365; 96374; 99284; J0696; J1885; J2405; J3010

== ENCOUNTER 2023-09-07 19:21 | Emergency (ER) | payer OTHER ==
--- NOTE | 2023-09-07 19:29 | ERPHSYRPT ---
- History of Present Illness Time Seen by Provider: 09/07/23 19:29 Historian: patient, family Exam Limitations: no limitations Physician History: This a 47-year-old white female patient who presents with chest pain that is been present for 2 days. She states the chest pain has been significant enough to induce a migraine headache that does not respond to her Imitrex. Patient took her Imitrex today but it did not help her. Patient was seen in our emergency department on 08/19/2023 with the same complaint of chest pain. The work-up was negative for any cardiac issues. Patient did not suffer any acute head trauma. She has no visual changes. Patient states that her headache is her typical migraine headache. Patient is a daily smoker of cigarettes. Patient has a history anxiety, seizure disorder, migraine headaches, gastroesophageal reflux disease, COPD, hyperlipidemia, bipolar disorder, fibromyalgia, degenerative disc disease, PTSD, schizophrenia and lupus. Timing/Duration: day(s) Activities at Onset: none Quality: aching Location: substernal, central Chest Pain Radiation: no radiation Severity of Pain-Max: mild (To moderate) Severity of Pain-Current: mild (To moderate) Modifying Factors: Improves With: nothing Associated Symptoms: denies symptoms Prior Chest Pain/Cardiac Workup: recently seen/treated Nitro Today/Relief: no nitro taken today Aspirin Treatment Today: no aspirin today Allergies/Adverse Reactions: ca Allergy (Severe, Verified 09/07/23 19:25) Swelling pregabalin [From Lyrica] Allergy (Severe, Verified 09/07/23 19:25) amoxicillin Allergy (Verified 09/07/23 19:25) Rash Penicillins Allergy (Verified 09/07/23 19:25) Rash propoxyphene HCl [From Darvon] Allergy (Verified 09/07/23 19:25) PASS OUT Home Medications: Propranolol HCl [Inderal 20 MG] 40 mg PO BID 02/20/19 [History] levETIRAcetam [Levetiracetam] 1,250 mg PO BID 02/20/19 [History] Lorazepam 0.5 mg [Ativan 0.5 MG] 1 mg PO TIDPRN PRN 12/29/21 [History] Hydroxychloroquine Sulfate 200 mg PO DAILY 02/19/23 [History] Prazosin HCl 2 mg PO HS 02/19/23 [History] Ropinirole 2Mg [Requip 2Mg Tab] 2 mg PO HS 02/19/23 [History] lamoTRIgine [Lamictal] 150 mg PO HS 02/19/23 [History] Erenumab-Aooe [Aimovig Autoinjector] 175 mg SQ UD 05/23/23 [History] Trihexyphenidyl HCl 5 mg PO TID PRN PRN 05/23/23 [History] lamoTRIgine [Lamotrigine] 200 mg PO DAILY 06/11/23 [History] Hx Tetanus, Diphtheria Vaccination/Date Given: Yes Hx Influenza Vaccination/Date Given: Yes Hx Pneumococcal Vaccination/Date Given: No Travel Risk - International Travel Have you traveled outside of the country in past 3 weeks: No - Coronavirus Screening Are you exhibiting any of the following symptoms?: No Close contact with a COVID-19 positive Pt in past 14-21 Days: No - Vaccine Status Have you recieved a 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: Yes 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[employer] - Vaccination Dates Date of 2cond Vaccination (if applicable): 2020 - Review of Systems Constitutional: No Symptoms Eyes: No Symptoms Ears, Nose, & Throat: No Symptoms Respiratory: No Symptoms Cardiac: Chest Pain Abdominal/Gastrointestinal: No Symptoms Genitourinary Symptoms: No Symptoms Musculoskeletal: No Symptoms Neurological: Headache Psychological: No Symptoms Endocrine: No Symptoms Hematologic/Lymphatic: No Symptoms Immunological/Allergic: No Symptoms All Other Systems: Reviewed and Negative - Past Medical History Pertinent Past Medical History: Yes Neurological History: Seizures ENT History: No Pertinent History Cardiac History: High Cholesterol Respiratory History: COPD Endocrine Medical History: Other Musculoskeletal History: Degenerative Disk Disease, Fibromyalgia GI Medical History: Esophageal Disorder, GERD History: No Pertinent History Psycho-Social History: Anxiety, Bipolar, Depression, Panic Disorder Female Reproductive Disorders: Abnormal Uterine Bleeding Other Medical History: Lupus, Neuropathy, DDD, bipolar 1 schizophrenia, PTSD - Past Surgical History Past Surgical History: Yes Neuro Surgical History: No Pertinent History Cardiac: No Pertinent History Respiratory: No Pertinent History Gastrointestinal: No Pertinent History Genitourinary: No Pertinent History Musculoskeletal: Other Female Surgical History: Section, Tubal Ligation, Other Other Surgical History: ABLATION - TUBAL LIGATION. BILATERAL WRIST SURGERY. PLATE AND TWO SCREWS IN THE BACK OF NECK. 12/26/20 Surgery to back. cadaver bone in neck - Social History Smoking Status: Current every day smoker How long have you smoked: 32 yrs Exposure to second hand smoke: Yes Drug Use: none Patient Lives Alone: No - Nursing Vital Signs Nursing Vital Signs: Initial Vital Signs Temperature 98.4 F 09/07/23 19:34 Pulse Rate 71 09/07/23 19:34 Respiratory Rate 18 09/07/23 19:34 Blood Pressure 135/62 09/07/23 19:34 O2 Sat by Pulse Oximetry 96 09/07/23 19:34 Pain Scale Pain Intensity 8 - Physical Exam General Appearance: no apparent distress, alert, anxiety, obese Eye Exam: PERRL/EOMI, eyes nml inspection Ears, Nose, Throat Exam: normal ENT inspection, moist mucous membranes Neck Exam: normal inspection, non-tender, supple, full range of motion Respiratory Exam: normal breath sounds, lungs clear, No chest tenderness, No respiratory distress Cardiovascular Exam: regular rate/rhythm, normal heart sounds, normal peripheral pulses Gastrointestinal/Abdomen Exam: soft, normal bowel sounds, No tenderness - Course Nursing assessment & vital signs reviewed: Yes EKG Interpreted by Me: RATE (72), Sinus Rhythm, Right [place] Deviation (Borderline), NORMAL INTERVALS, NORMAL QRS, NORMAL ST-T, Other (No acute ischemic changes on today's twelve-lead EKG.) Ordered Tests: Active Orders 24 hr Category Date Time Status End Lathe Operator STAT Care 09/07/23 19:51 Active EKG-ER Only STAT Care 09/07/23 19:51 Active IV Insertion STAT Care 09/07/23 19:51 Active Pulse Oximetry (ED) STAT Care 09/07/23 19:51 Active CBC W DIFF Stat Lab 09/07/23 20:15 Completed CMP Stat Lab 09/07/23 20:15 Completed TROPONIN Q4H Lab 09/07/23 20:15 Completed TROPONIN Q4H Lab 09/08/23 00:00 Ordered TROPONIN Q4H Lab 09/08/23 04:00 Ordered Medication Summary Discontinued Medications Generic Name Dose Route Start Last Admin Trade Name Freq PRN Reason Stop Dose Admin Aspirin 324 mg 09/07/23 19:51 09/07/23 20:08 Aspirin 81 Mg Tab.Chew PO 09/07/23 19:52 324 mg STAT ONE Administration Aspirin Confirm 09/07/23 20:04 Aspirin 81 Mg Tab.Chew Administered 09/07/23 20:05 Dose 324 mg .ROUTE .STK-MED ONE Morphine Sulfate 4 mg 09/07/23 19:51 09/07/23 20:09 Morphine Sulfate 4 Mg/Ml Injection IV 09/07/23 19:52 4 mg STAT ONE Administration Morphine Sulfate Confirm 09/07/23 20:05 Morphine Sulfate 4 Mg/Ml Injection Administered 09/07/23 20:06 Dose 4 mg .ROUTE .STK-MED ONE Ondansetron HCl 4 mg 09/07/23 19:51 09/07/23 20:09 Ondansetron Hcl 4 Mg/2 Ml Vial IV 09/07/23 19:52 4 mg STAT ONE Administration Ondansetron HCl Confirm 09/07/23 20:04 Ondansetron Hcl 4 Mg/2 Ml Vial Administered 09/07/23 20:05 Dose 4 mg .ROUTE .STK-MED ONE Lab/Rad Data: Laboratory Result Diagrams 09/07/23 20:15 09/07/23 20:15 Laboratory Results 09/07/23 09/07/23 09/07/23 Range/Units 20:15 20:15 20:15 WBC 7.3 (4.0-10.5) x10^3/uL RBC 3.93 L (4.1-5.4) x10^6/uL Hgb 12.8 (12.0-16.0) g/dL Hct 38.2 (35-47) % MCV 97.2 (78-100) fL MCH 32.6 H (26-32) pg MCHC 33.5 (32-36) g/dL RDW 12.2 (11.5-14.0) % Plt Count 306 (150-450) x10^3/uL MPV 9.7 (7.5-11.0) fL Gran % 53.8 (36.0-66.0) % Immature Gran % (Auto) 0.3 (0.00-0.4) % Nucleat RBC Rel Count 0.0 (0.00-0.1) % Eos # (Auto) 0.65 H (0-0.5) x10^3/uL Immature Gran # (Auto) 0.02 (0.00-0.03) x10^3u/L Absolute Lymphs (auto) 2.01 (1.0-4.6) x10^3/uL Absolute Monos (auto) 0.61 (0.0-1.3) x10^3/uL Absolute Nucleated RBC 0.00 (0.00-0.01) x10^3u/L Lymphocytes % 27.5 (24.0-44.0) % Monocytes % 8.3 (0.0-12.0) % Eosinophils % 8.9 H (0.00-5.0) % Basophils % 1.2 (0.0-0.4) % Absolute Granulocytes 3.94 (1.4-6.9) x10^3/uL Basophils # 0.09 (0-0.4) x10^3/uL Sodium 140 (137-145) mmol/L Potassium 3.8 (3.5-5.1) mmol/L Chloride 105 (98-107) mmol/L Carbon Dioxide 25 (22-30) mmol/L Anion Gap 13.6 (5-15) MEQ/L BUN 10 (7-17) mg/dL Creatinine 0.82 (0.52-1.04) mg/dL Estimated GFR 88.2 ML/MIN Glucose 99 (74-106) mg/dL Calcium 9.4 (8.4-10.2) mg/dL Total Bilirubin 0.20 (0.2-1.3) mg/dL AST 16 (14-36) U/L ALT 12 (0-35) U/L Alkaline Phosphatase 57 (38-126) U/L Troponin I < 0.012 (0.000-0.034) ng/mL Serum Total Protein 7.2 (6.3-8.2) g/dL Albumin 4.1 (3.5-5.0) g/dL - Progress Progress: improved, re-examined Air Movement: good Progress Note: 09/07/23 21:17 This patient's medical issue is 1 of moderate complexity. Level complexity in the work-up performed is based on review of the patient's past medical history, review the patient's medication list, review of the patient's drug allergy list, history of present illness and physical findings on examination. The work-up in this patient includes placement of intravenous line, infusion of 4 mg intravenous morphine, 4 mg of intravenous Zofran, twelve-lead EKG, CBC, CMP, tro ponin level. I did not repeat a chest x-ray and I did not repeat a D-dimer level. The patient had normal level of D-dimer less than 3 weeks ago and her chest x-ray did show an infiltrate and she has been treated for this. I reviewed the results of her laboratory work-up. She has no acute, emergent medical issue at this time. Blood Culture(s) Obtained: No Antibiotics given: No Counseled pt/family regarding: lab results, diagnosis, need for follow-up Medical Desision Making - Diagnostic Testing Diagnostic test were ordered, analyzed, and reviewed by me: Yes Radiological Interpretation: Reviewed by me, Teleradiologist Report - Risk of complications Low Risk: Low risk of morbidity from additional dx testing or treatment - Departure Departure Disposition: Home Clinical Impression: Migraine headache, Non-cardiac chest pain Condition: Stable Critical Care Time: No Referrals: DOCTOR,NO FAMILY [Primary Care Provider] - Follow up/PCP as directed Additional Instructions: Drink plenty of fluids. Take your medications as prescribed. Call your primary care provider tomorrow, 09/08/2023 to make arranges for further evaluation follow-up. Call your photography coordinator tomorrow, 09/08/2023, to make a follow-up appointment the next 3 to 5 days.
[2023-09-07 19:35] VITALS: TEMP 98.4
[2023-09-07] MEDS ORDERED: BABY ASPIRIN 81 MG CHEW ONE (20:04)
[2023-09-07] MEDS ORDERED: Zofran 4 MG/2 ML VIAL ONE (20:04)
[2023-09-07] MEDS ORDERED: MORPHINE SULFATE 4 MG INJ ONE (20:05)
[2023-09-07] MEDS: BABY ASPIRIN 81 MG CHEW PO ONE (20:08)
[2023-09-07] MEDS: MORPHINE SULFATE 4 MG INJ IV ONE (20:09)
[2023-09-07] MEDS: Zofran 4 MG/2 ML VIAL IV ONE (20:09)
[2023-09-07 20:21] LABS: Absolute Neutrophil Ct (ANC) 3.94 x10^3/uL (1.4-6.9); BASOPHIL % 1.2 % (0.0-0.4); Basophil (Absolute #) 0.09 x10^3/uL (0-0.4); Eosinophil % 8.9 % (0.00-5.0); Eosinophil (Absolute #) 0.65 x10^3/uL (0-0.5); Hematocrit 38.2 % (35-47); Hemoglobin 12.8 g/dL (12.0-16.0); IMMATURE GRAN # 0.02 x10^3u/L (0.00-0.03); IMMATURE GRAN % 0.3 % (0.00-0.4); Lymphocyte (Absolute #) 2.01 x10^3/uL (1.0-4.6); Lymphocytes % 27.5 % (24.0-44.0); Mean Cell Volume 97.2 fL (78-100); Mean Corpuscular Hemoglobin 32.6 pg (26-32); Mean Corpuscular Hgb Concent. 33.5 g/dL (32-36); Mean Platelet Volume 9.7 fL (7.5-11.0); Monocyte (Absolute #) 0.61 x10^3/uL (0.0-1.3); Monocytes % 8.3 % (0.0-12.0); Neutrophil % 53.8 % (36.0-66.0); Platelet Count 306 x10^3/uL (150-450); Red Blood Count 3.93 x10^6/uL (4.1-5.4); Red Cell Distribution Width 12.2 % (11.5-14.0); White Blood Count 7.3 x10^3/uL (4.0-10.5)
[2023-09-07 20:25] VITALS: RESP 16
[2023-09-07 20:49] LABS: ALBUMIN 4.1 g/dL (3.5-5.0); ANION GAP 13.6 MEQ/L (5-15); BILIRUBIN,TOTAL 0.2 mg/dL (0.2-1.3); Calcium 9.4 mg/dL (8.4-10.2); Creatinine 1 0.82 mg/dL (0.52-1.04); EST GLOMERULAR FILTRATION RATE 88.2 ML/MIN; Potassium 3.8 mmol/L (3.5-5.1); Total Protein 7.2 g/dL (6.3-8.2)
[2023-09-07 22:07] VITALS: BP 124/67; PULSE 61; O2SAT 97
== END 2023-09-07 22:07 | disposition home or self-care (01) ==
LOC: ED 19:21
DX: G43.909 Migraine, unspecified, not intractable, without status migrainosus (principal); R07.89 Other chest pain; E78.5 Hyperlipidemia, unspecified; Z79.899 Other long term (current) drug therapy; Z72.0 Tobacco use
CPT/HCPCS: 36000; 36415; 80053; 84484; 85025; 93005; 93041; 94760; 96374; 96375; 99284; J2270; J2405; A9270-GY

== ENCOUNTER 2023-10-06 18:14 | Emergency (ER) | payer OTHER ==
[2023-10-06 18:37] VITALS: BP 114/59; PULSE 94; RESP 22; TEMP 99.9; O2SAT 96
== END 2023-10-06 21:04 | disposition left against medical advice (07) ==
LOC: ED 18:14
DX: R50.9 Fever, unspecified (principal)
CPT/HCPCS: 99281; G0463

== ENCOUNTER 2023-10-07 17:46 | Emergency (ER) | payer OTHER ==
[2023-10-07 18:32] VITALS: RESP 20; TEMP 99
[2023-10-07] MEDS ORDERED: Zofran 4 MG/2 ML VIAL IV STA (18:50)
[2023-10-07] MEDS ORDERED: Sodium Chloride 0.9% 1000 ML 1,000 ML IV STA (18:50)
--- NOTE | 2023-10-07 18:55 | ERPHSYRPT ---
- History of Present Illness Source: patient Exam Limitations: no limitations Patient Subjective Stated Complaint: feeling short of breath, nauseated, body aches, headache, dry cough for past couple days. Triage Nursing Assessment: Patient c/o shortness of breath, nausea, vomiting, body aches, fever, for past couple days. Seen at the [facility] yesterday and sent to ER but left before being seen. Symptoms worsening. Patient states had syncopal episode while coughing very hard at home today. Timing/Duration: yesterday Cough Quality/Degree: moderate, dry cough Possible Cause: no prior episodes Modifying Factors: Improves With: coughing Associated Symptoms: cough, muscle aches Hx Tetanus, Diphtheria Vaccination/Date Given: Yes Hx Influenza Vaccination/Date Given: Yes Hx Pneumococcal Vaccination/Date Given: No <MENDEZ DURAND - Last Filed: 10/07/23 18:50> <ROBERT CAMPBELL - Last Filed: 10/07/23 20:32> - History of Present Illness Time Seen by Provider: 10/07/23 18:30 Physician History: This is an obese 47-year-old white female who presents with 2-day history of nonproductive dry cough, body aches, headache, shortness of breath, nausea and vomiting. Patient states that today, she coughs so hard that she nearly had a syncopal episode. Patient was seen at [facility] yesterday but did not follow- up in the emergency room. Patient denies chest pain at this time. She denies abdominal pain. She denies diarrhea. Patient is a daily smoker of cigarettes. Patient has a seizure disorder. (MENDEZ DURAND) Allergies/Adverse Reactions: ac Allergy (Severe, Verified 09/07/23 19:25) Swelling pregabalin [From Lyrica] Allergy (Severe, Verified 09/07/23 19:25) amoxicillin Allergy (Verified 09/07/23 19:25) Rash Penicillins Allergy (Verified 09/07/23 19:25) Rash propoxyphene HCl [From Darvon] Allergy (Verified 09/07/23 19:25) PASS OUT Home Medications: Propranolol HCl [Inderal 20 MG] 40 mg PO BID 02/20/19 [History] levETIRAcetam [Levetiracetam] 1,250 mg PO BID 02/20/19 [History] Lorazepam 0.5 mg [Ativan 0.5 MG] 1 mg PO TIDPRN PRN 12/29/21 [History] Hydroxychloroquine Sulfate 200 mg PO DAILY 02/19/23 [History] Prazosin HCl 2 mg PO HS 02/19/23 [History] Ropinirole 2Mg [Requip 2Mg Tab] 2 mg PO HS 02/19/23 [History] lamoTRIgine [Lamictal] 150 mg PO HS 02/19/23 [History] Erenumab-Aooe [Aimovig Autoinjector] 175 mg SQ UD 05/23/23 [History] Trihexyphenidyl HCl 5 mg PO TID PRN PRN 05/23/23 [History] lamoTRIgine [Lamotrigine] 200 mg PO DAILY 06/11/23 [History] Travel Risk - International Travel Have you traveled outside of the country in past 3 weeks: No - Coronavirus Screening Are you exhibiting any of the following symptoms?: Yes Symptoms: Fever, Shortness of Breath, Headaches/Body Aches/Fatigue Close contact with a COVID-19 positive Pt in past 14-21 Days: No - Vaccine Status Have you recieved a 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: Yes [employer] 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: [employer] - Vaccination Dates Date of 2cond Vaccination (if applicable): 2020 <MENDEZ DURAND - Last Filed: 10/07/23 18:50> - Review of Systems Constitutional: Fever Eyes: No Symptoms Ears, Nose, & Throat: No Symptoms Respiratory: Cough, Dyspnea Cardiac: No Symptoms Abdominal/Gastrointestinal: No Symptoms, Nausea, Vomiting, Appetite Changes Genitourinary Symptoms: No Symptoms Musculoskeletal: Arthralgias, Myalgias Skin: No Symptoms Neurological: No Symptoms Psychological: No Symptoms Endocrine: No Symptoms Hematologic/Lymphatic: No Symptoms Immunological/Allergic: No Symptoms All Other Systems: Reviewed and Negative <MENDEZ DURAND - Last Filed: 10/07/23 18:50> - Past Medical History Pertinent Past Medical History: Yes Neurological History: Seizures ENT History: No Pertinent History Cardiac History: High Cholesterol Respiratory History: COPD Endocrine Medical History: Other Musculoskeletal History: Degenerative Disk Disease, Fibromyalgia GI Medical History: Esophageal Disorder, GERD History: No Pertinent History Psycho-Social History: Anxiety, Bipolar, Depression, Panic Disorder Female Reproductive Disorders: Abnormal Uterine Bleeding Other Medical History: Lupus, Neuropathy, DDD, bipolar 1 schizophrenia, PTSD - Past Surgical History Past Surgical History: Yes Neuro Surgical History: No Pertinent History Cardiac: No Pertinent History Respiratory: No Pertinent History Gastrointestinal: No Pertinent History Genitourinary: No Pertinent History Musculoskeletal: Other Female Surgical History: Section, Tubal Ligation, Other Other Surgical History: ABLATION - TUBAL LIGATION. BILATERAL WRIST SURGERY. PLATE AND TWO SCREWS IN THE BACK OF NECK. 12/26/20 Surgery to back. cadaver bone in neck - Social History Smoking Status: Current every day smoker How long have you smoked: 32 yrs Exposure to second hand smoke: Yes Drug Use: none Patient Lives Alone: No - Female History Hx Now: No <MENDEZ DURAND - Last Filed: 10/07/23 18:50> - Physical Exam SpO2: 98 <MENDEZ DURAND - Last Filed: 10/07/23 18:50> - Physical Exam General Appearance: no apparent distress Eye Exam: PERRL/EOMI, eyes nml inspection Ears, Nose, Throat Exam: normal ENT inspection, TMs normal, pharynx normal, moist mucous membranes Neck Exam: normal inspection, non-tender, supple, full range of motion Respiratory Exam: normal breath sounds, lungs clear, airway intact, No respiratory distress Cardiovascular Exam: regular rate/rhythm, normal heart sounds, normal peripheral pulses Gastrointestinal/Abdomen Exam: soft, No tenderness Back Exam: normal inspection, No CVA tenderness, No vertebral tenderness Extremity Exam: normal inspection, normal range of motion Neurologic Exam: alert, 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, cooperative, normal mood/affect, sensation nml, No motor deficits Skin Exam: normal color, warm, dry, No rash Lymphatic Exam: No adenopathy SpO2 Interpretation: normal O2 Delivery: Room Air <ROBERT CAMPBELL - Last Filed: 10/07/23 20:32> - Nursing Vital Signs Nursing Vital Signs: Initial Vital Signs Temperature 99.0 F 10/07/23 18:19 Pulse Rate 90 10/07/23 18:19 Respiratory Rate 20 10/07/23 18:19 Blood Pressure 115/76 10/07/23 18:19 O2 Sat by Pulse Oximetry 98 10/07/23 18:19 Pain Scale Pain Intensity 8 - Course Nursing assessment & vital signs reviewed: Yes EKG Interpreted by Me: RATE, Sinus Rhythm, NORMAL AXIS, NORMAL INTERVALS - Radiology Exams Chest X-ray Interpretation: Interpreted by me (Bibasilar atelectasis otherwise normal chest x-ray) <ROBERT CAMPBELL - Last Filed: 10/07/23 20:32> Ordered Tests: Active Orders 24 hr Category Date Time Status Health Sciences Department Chair STAT Care 10/07/23 18:51 Active EKG-ER Only STAT Care 10/07/23 18:50 Active IV Insertion STAT Care 10/07/23 18:50 Active Pulse Oximetry (ED) STAT Care 10/07/23 18:50 Active CHEST 1 VIEW (PORTABLE) Stat Exams 10/07/23 18:51 Taken BLOOD CULTURE Stat Lab 10/07/23 19:13 Received CBC W DIFF Stat Lab 10/07/23 19:00 Completed CMP Stat Lab 10/07/23 19:00 Completed MONO SCREEN Stat Lab 10/07/23 19:00 Completed UA W/RFX UR CULTURE Stat Lab 10/07/23 18:51 Ordered Medication Summary Discontinued Medications Generic Name Dose Route Start Last Admin Trade Name Freq PRN Reason Stop Dose Admin Dexamethasone Sodium Phosphate 8 mg 10/07/23 19:52 10/07/23 19:58 Dexamethasone Sod Phosphate 10 Mg/Ml IM 10/07/23 19:53 8 mg STAT ONE Administration Dexamethasone Sodium Phosphate Confirm 10/07/23 19:56 Dexamethasone Sod Phosphate 10 Mg/Ml Administered 10/07/23 19:57 Dose 10 mg .ROUTE .STK-MED ONE Sodium Chloride 1,000 mls @ 999 mls/hr 10/07/23 18:50 10/07/23 20:23 Sodium Chloride 0.9% 1000 Ml IV 10/07/23 19:50 Infused .Q1H1M STA Infusion Sodium Chloride Confirm 10/07/23 19:13 Sodium Chloride 0.9% 1000 Ml Administered 10/07/23 19:14 Dose 1,000 mls @ ud .ROUTE .STK-MED ONE Ondansetron HCl 4 mg 10/07/23 18:50 10/07/23 19:17 Ondansetron Hcl 4 Mg/2 Ml Vial IV 10/07/23 18:51 4 mg STAT STA Administration Ondansetron HCl Confirm 10/07/23 19:13 Ondansetron Hcl 4 Mg/2 Ml Vial Administered 10/07/23 19:14 Dose 4 mg .ROUTE .[facility]-MED ONE Lab/Rad Data: Laboratory Result Diagrams 10/07/23 19:00 10/07/23 19:00 Laboratory Results 10/07/23 10/07/23 10/07/23 Range/Units 19:15 19:15 19:00 WBC (4.0-10.5) x10^3/uL RBC (4.1-5.4) x10^6/uL Hgb (12.0-16.0) g/dL Hct (35-47) % MCV (78-100) fL MCH (26-32) pg MCHC (32-36) g/dL RDW (11.5-14.0) % Plt Count (150-450) x10^3/uL MPV (7.5-11.0) fL Gran % (36.0-66.0) % Immature Gran % (Auto) (0.00-0.4) % Nucleat RBC Rel Count (0.00-0.1) % Eos # (Auto) (0-0.5) x10^3/uL Immature Gran # (Auto) (0.00-0.03) x10^3u/L Absolute Lymphs (auto) (1.0-4.6) x10^3/uL Absolute Monos (auto) (0.0-1.3) x10^3/uL Absolute Nucleated RBC (0.00-0.01) x10^3u/L Lymphocytes % (24.0-44.0) % Monocytes % (0.0-12.0) % Eosinophils % (0.00-5.0) % Basophils % (0.0-0.4) % Absolute Granulocytes (1.4-6.9) x10^3/uL Basophils # (0-0.4) x10^3/uL Sodium (137-145) mmol/L Potassium (3.5-5.1) mmol/L Chloride (98-107) mmol/L Carbon Dioxide (22-30) mmol/L Anion Gap (5-15) MEQ/L BUN (7-17) mg/dL Creatinine (0.52-1.04) mg/dL Estimated GFR ML/MIN Glucose (74-106) mg/dL Calcium (8.4-10.2) mg/dL Total Bilirubin (0.2-1.3) mg/dL AST (14-36) U/L ALT (0-35) U/L Alkaline Phosphatase (38-126) U/L Serum Total Protein (6.3-8.2) g/dL Albumin (3.5-5.0) g/dL Monoscreen NEGATIVE (NEGATIVE) Influenza Type A Ag POSITIVE (NEGATIVE) Influenza Type B Ag NEGATIVE (NEGATIVE) RSV (PCR) NEGATIVE (NEGATIVE) SARS-CoV-2 (PCR) NEGATIVE (NEGATIVE) Group A Strep Antibody NOT DETECTED (NEGATIVE) 10/07/23 10/07/23 Range/Units 19:00 19:00 WBC 4.8 (4.0-10.5) x10^3/uL RBC 4.14 (4.1-5.4) x10^6/uL Hgb 13.4 (12.0-16.0) g/dL Hct 39.4 (35-47) % MCV 95.2 (78-100) fL MCH 32.4 H (26-32) pg MCHC 34.0 (32-36) g/dL RDW 12.6 (11.5-14.0) % Plt Count 243 (150-450) x10^3/uL MPV 10.2 (7.5-11.0) fL Gran % 73.3 H (36.0-66.0) % Immature Gran % (Auto) 0.4 (0.00-0.4) % Nucleat RBC Rel Count 0.0 (0.00-0.1) % Eos # (Auto) 0.02 (0-0.5) x10^3/uL Immature Gran # (Auto) 0.02 (0.00-0.03) x10^3u/L Absolute Lymphs (auto) 0.67 L (1.0-4.6) x10^3/uL Absolute Monos (auto) 0.55 (0.0-1.3) x10^3/uL Absolute Nucleated RBC 0.00 (0.00-0.01) x10^3u/L Lymphocytes % 14.0 L (24.0-44.0) % Monocytes % 11.5 (0.0-12.0) % Eosinophils % 0.4 (0.00-5.0) % Basophils % 0.4 (0.0-0.4) % Absolute Granulocytes 3.51 (1.4-6.9) x10^3/uL Basophils # 0.02 (0-0.4) x10^3/uL Sodium 134 L (137-145) mmol/L Potassium 3.6 (3.5-5.1) mmol/L Chloride 102 (98-107) mmol/L Carbon Dioxide 22 (22-30) mmol/L Anion Gap 13.4 (5-15) MEQ/L BUN 12 (7-17) mg/dL Creatinine 0.87 (0.52-1.04) mg/dL Estimated GFR 82.1 ML/MIN Glucose 92 (74-106) mg/dL Calcium 9.0 (8.4-10.2) mg/dL Total Bilirubin 0.20 (0.2-1.3) mg/dL AST 31 (14-36) U/L ALT 16 (0-35) U/L Alkaline Phosphatase 65 (38-126) U/L Serum Total Protein 7.5 (6.3-8.2) g/dL Albumin 4.4 (3.5-5.0) g/dL Monoscreen (NEGATIVE) Influenza Type A Ag (NEGATIVE) Influenza Type B Ag (NEGATIVE) RSV (PCR) (NEGATIVE) SARS-CoV-2 (PCR) (NEGATIVE) Group A Strep Antibody (NEGATIVE) - Progress Blood Culture(s) Obtained: Yes <MENDEZ DURAND - Last Filed: 10/07/23 18:50> - Progress Progress: improved Air Movement: good Antibiotics given: No Counseled pt/family regarding: lab results, diagnosis, need for follow-up, rad results <ROBERT CAMPBELL - Last Filed: 10/07/23 20:32> - Progress Progress Note: 10/07/23 18:54 This patient's medical issue is 1 of moderate complexity. Level complex in the workup performed is based on review of the patient's past medical history, review of the patient's medication list, review of patient drug allergy list, history present illness and physical findings on examination. Workup includes placement of intravenous line, urinalysis, chest x-ray, twelve-lead EKG, CBC, CMP, viral studies, monotest, strep test and blood cultures. Transfer of care is made to Dr. Robert Campbell at shift change. He will follow-up on pending studies and make final disposition. (MENDEZ DURAND) - Departure Departure Disposition: Home Critical Care Time: No <MENDEZ DURAND - Last Filed: 10/07/23 18:50> <ROBERT CAMPBELL - Last Filed: 10/07/23 20:32> - Departure Clinical Impression: Cough, Viral illness, Influenza A Condition: Stable Referrals: DOCTOR,NO FAMILY [Primary Care Provider] - Follow up/PCP as directed JAYDON VALDOVINOS MD [ACTIVE STAFF] - Follow up/PCP as directed Additional Instructions: Discharge/Care Plan CESAR AGUSTIN was seen on 10/07/23 in the Emergency Room. The patient was counseled regarding Diagnosis,Lab results, Imaging studies, need for follow up and when to return to the Emergency Room. Prescriptions given: Discharge Note I have spoken with the patient and/or caregivers. I have explained the patient's condition, diagnosis and treatment plan based on the information available to me at this time. I have answered the patient's and/or caregiver's questions and addressed any concerns. The patient and/or caregivers have as good understanding of the patient's diagnosis, condition and treatment plan as can be expected at this point. The vital signs have been stable. The patient's condition is stable and appropriate for discharge from the emergency department. The patient will pursue further outpatient evaluation with the primary care physician or other designated or consulting physician as outlined in the discharge instructions. The patient and/or caregivers are agreeable to this plan of care and follow-up instructions have been explained in detail. The patient and/or caregivers have received these instruction. The patient/and or caregivers are aware that any significant change in condition or worsening of symptoms should prompt an immediate return to this or the closest emergency department or call 911.
[2023-10-07] MEDS ORDERED: Zofran 4 MG/2 ML VIAL ONE (19:13)
[2023-10-07] MEDS ORDERED: Sodium Chloride 0.9% 1000 ML 1,000 ML ONE (19:13)
[2023-10-07 19:26] LABS: Absolute Neutrophil Ct (ANC) 3.51 x10^3/uL (1.4-6.9); BASOPHIL % 0.4 % (0.0-0.4); Basophil (Absolute #) 0.02 x10^3/uL (0-0.4); Eosinophil % 0.4 % (0.00-5.0); Eosinophil (Absolute #) 0.02 x10^3/uL (0-0.5); Hematocrit 39.4 % (35-47); Hemoglobin 13.4 g/dL (12.0-16.0); IMMATURE GRAN # 0.02 x10^3u/L (0.00-0.03); IMMATURE GRAN % 0.4 % (0.00-0.4); Lymphocyte (Absolute #) 0.67 x10^3/uL (1.0-4.6); Mean Cell Volume 95.2 fL (78-100); Mean Corpuscular Hemoglobin 32.4 pg (26-32); Mean Platelet Volume 10.2 fL (7.5-11.0); Monocyte (Absolute #) 0.55 x10^3/uL (0.0-1.3); Monocytes % 11.5 % (0.0-12.0); Neutrophil % 73.3 % (36.0-66.0); Platelet Count 243 x10^3/uL (150-450); Red Blood Count 4.14 x10^6/uL (4.1-5.4); Red Cell Distribution Width 12.6 % (11.5-14.0); White Blood Count 4.8 x10^3/uL (4.0-10.5)
[2023-10-07 19:38] LABS: ALBUMIN 4.4 g/dL (3.5-5.0); ANION GAP 13.4 MEQ/L (5-15); BILIRUBIN,TOTAL 0.2 mg/dL (0.2-1.3); Creatinine 1 0.87 mg/dL (0.52-1.04); EST GLOMERULAR FILTRATION RATE 82.1 ML/MIN; Potassium 3.6 mmol/L (3.5-5.1); Total Protein 7.5 g/dL (6.3-8.2)
[2023-10-07] MEDS ORDERED: DECADRON 10MG INJ. IM ONE (19:52)
[2023-10-07] MEDS ORDERED: DECADRON 10MG INJ. ONE (19:56)
[2023-10-07 20:06] LABS: INFLUENZA B NEGATIVE (NEGATIVE); RESPIRATORY SYNCTIAL VIRUS NEGATIVE (NEGATIVE); SARS-CoV-2 Xpert Express NEGATIVE (NEGATIVE)
[2023-10-07 20:08] LABS: INFLUENZA A POSITIVE (NEGATIVE)
[2023-10-07 20:43] VITALS: BP 128/68; PULSE 72; O2SAT 100
--- NOTE | 2023-10-08 08:59 | XRAY ---
Indication: Cough. Comparison: August 19, 2023 Portable chest is now clear. Heart not enlarged. Bony thorax intact again with cervical fusion hardware. No new/acute findings.
== END 2023-10-07 20:42 | disposition home or self-care (01) ==
LOC: ED 17:46
DX: J10.1 Influenza due to other identified influenza virus with other respiratory manifestations (principal); R05.1 Acute cough; M79.10 Myalgia, unspecified site; R51.9 Headache, unspecified; R06.02 Shortness of breath; R11.2 Nausea with vomiting, unspecified; E78.5 Hyperlipidemia, unspecified; Z79.899 Other long term (current) drug therapy; Z72.0 Tobacco use
CPT/HCPCS: 0241U; 36000; 36415; 71045; 80053; 85025; 86308; 87040; 87651; 93005; 94760; 96360; 96372; 96374; 99284; J1100; J2405

== ENCOUNTER 2023-12-23 11:38 | Emergency (ER) | payer OTHER ==
--- NOTE | 2023-12-23 11:45 | ERPHSYRPT ---
- History of Present Illness Time Seen by Provider: 12/23/23 11:45 Historian: patient Exam Limitations: no limitations Physician History: This is an obese white female patient who is 48 years of age and has a history of lupus and is currently in the middle of a "lupus flareup". She has not seen her derrick operator yet but has an upcoming appointment. She does not recall the name of this derrick operator. She called the office and they told her to come to the emergency room because this patient is complaining of left anterior lung pain that radiates straight through her back and into the left shoulder. There is a sharp pain component and then a burning component. It started yesterday, 24 hours ago. Patient has no history of diagnosed coronary artery disease. Senait cates is a daily smoker of cigarettes but she is cut way back from 2 packs a day to half a pack a day. Patient has a history of COPD, seizure disorder, hyperlipidemia, anxiety/panic disorder, bipolar disorder, PTSD, neuropathy, fibromyalgia and degenerative disc disease. She has no shortness of breath. She has no abdominal pain. She has not had a fever. She denies cough. She has had no nausea vomiting or diarrhea symptoms. Timing/Duration: yesterday Quality: burning, sharpness (To moderate) Location: other (Left anterior chest) Chest Pain Radiation: back (Left anterior shoulder posteriorly and upper back) Severity of Pain-Max: mild (To moderate) Severity of Pain-Current: mild Modifying Factors: Improves With: nothing Associated Symptoms: denies symptoms Prior Chest Pain/Cardiac Workup: no prior chest pain Nitro Today/Relief: no nitro taken today Aspirin Treatment Today: no aspirin today Allergies/Adverse Reactions: ca Allergy (Severe, Verified 12/23/23 11:39) Swelling pregabalin [From Lyrica] Allergy (Severe, Verified 12/23/23 11:39) amoxicillin Allergy (Verified 12/23/23 11:39) Rash Penicillins Allergy (Verified 12/23/23 11:39) Rash propoxyphene HCl [From Darvon] Allergy (Verified 12/23/23 11:39) PASS OUT Home Medications: Propranolol HCl [Inderal 20 MG] 40 mg PO BID 02/20/19 [History] levETIRAcetam [Levetiracetam] 1,250 mg PO BID 02/20/19 [History] Lorazepam 0.5 mg [Ativan 0.5 MG] 1 mg PO TIDPRN PRN 12/29/21 [History] Hydroxychloroquine Sulfate 200 mg PO DAILY 02/19/23 [History] Prazosin HCl 2 mg PO HS 02/19/23 [History] Ropinirole 2Mg [Requip 2Mg Tab] 2 mg PO HS 02/19/23 [History] lamoTRIgine [Lamictal] 150 mg PO HS 02/19/23 [History] Erenumab-Aooe [Aimovig Autoinjector] 175 mg SQ UD 05/23/23 [History] Trihexyphenidyl HCl 5 mg PO TID PRN PRN 05/23/23 [History] lamoTRIgine [Lamotrigine] 200 mg PO DAILY 06/11/23 [History] Hx Tetanus, Diphtheria Vaccination/Date Given: Yes Hx Influenza Vaccination/Date Given: Yes Hx Pneumococcal Vaccination/Date Given: No Travel Risk - International Travel Have you traveled outside of the country in past 3 weeks: No - Coronavirus Screening Are you exhibiting any of the following symptoms?: No Close contact with a COVID-19 positive Pt in past 14-21 Days: No - Vaccine Status Have you recieved a 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: Yes 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: [email or web address] - Vaccination Dates Date of 2cond Vaccination (if applicable): 2020 - Review of Systems Constitutional: No Symptoms Eyes: No Symptoms Ears, Nose, & Throat: No Symptoms Respiratory: No Symptoms Cardiac: Chest Pain (Left anterior chest pain) Abdominal/Gastrointestinal: No Symptoms Genitourinary Symptoms: No Symptoms Musculoskeletal: No Symptoms Skin: No Symptoms Neurological: No Symptoms Psychological: Anxiety Endocrine: No Symptoms Hematologic/Lymphatic: No Symptoms Immunological/Allergic: No Symptoms All Other Systems: Reviewed and Negative - Past Medical History Pertinent Past Medical History: Yes Neurological History: Seizures ENT History: No Pertinent History Cardiac History: High Cholesterol Respiratory History: COPD Endocrine Medical History: Other Musculoskeletal History: Degenerative Disk Disease, Fibromyalgia GI Medical History: Esophageal Disorder, GERD History: No Pertinent History Psycho-Social History: Anxiety, Bipolar, Depression, Panic Disorder Female Reproductive Disorders: Abnormal Uterine Bleeding Other Medical History: Lupus, Neuropathy, DDD, bipolar 1 schizophrenia, PTSD - Past Surgical History Past Surgical History: Yes Neuro Surgical History: No Pertinent History Cardiac: No Pertinent History Respiratory: No Pertinent History Gastrointestinal: No Pertinent History Genitourinary: No Pertinent History Musculoskeletal: Other Female Surgical History: Section, Tubal Ligation, Other Other Surgical History: ABLATION - TUBAL LIGATION. BILATERAL WRIST SURGERY. PLATE AND TWO SCREWS IN THE BACK OF NECK. 12/26/20 Surgery to back. cadaver bone in neck - Social History Smoking Status: Current every day smoker How long have you smoked: 32 yrs Exposure to second hand smoke: Yes Drug Use: none Patient Lives Alone: No - Nursing Vital Signs Nursing Vital Signs: Initial Vital Signs Temperature 97.9 F 12/23/23 11:38 Pulse Rate 86 12/23/23 11:38 Respiratory Rate 16 12/23/23 11:38 Blood Pressure 127/88 12/23/23 11:38 O2 Sat by Pulse Oximetry 100 12/23/23 11:38 Pain Scale Pain Intensity 5 - Physical Exam General Appearance: no apparent distress, alert, anxiety, obese Ears, Nose, Throat Exam: normal ENT inspection, moist mucous membranes Neck Exam: normal inspection, non-tender, supple, full range of motion Respiratory Exam: normal breath sounds, chest tenderness, lungs clear, airway intact, No respiratory distress Cardiovascular Exam: regular rate/rhythm, normal heart sounds, normal peripheral pulses Gastrointestinal/Abdomen Exam: soft, normal bowel sounds, No tenderness Rectal Exam: not done Back Exam: normal inspection, normal range of motion, vertebral tenderness, No CVA tenderness Extremity Exam: normal inspection, normal range of motion, pelvis stable Neurologic Exam: alert, 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, cooperative, mig tig welder II-XII nml as tested, normal mood/affect, nml cerebellar function, nml station & gait, sensation nml Skin Exam: normal color, warm, dry Lymphatic Exam: No adenopathy SpO2 Interpretation: normal O2 Delivery: Room Air - Course Nursing assessment & vital signs reviewed: Yes EKG Interpreted by Me: RATE (90), Sinus Rhythm, NORMAL AXIS, NORMAL INTERVALS, NORMAL QRS, NORMAL ST-T, Other (No evidence of acute ischemic changes on today's twelve-lead EKG) Ordered Tests: Active Orders 24 hr Category Date Time Status Ict Educator STAT Care 12/23/23 11:46 Active EKG-ER Only STAT Care 12/23/23 11:45 Active IV Insertion STAT Care 12/23/23 11:45 Active Pulse Oximetry (ED) STAT Care 12/23/23 11:45 Active CHEST 1 VIEW (PORTABLE) Stat Exams 12/23/23 11:46 Completed CBC W DIFF Stat Lab 12/23/23 12:00 Completed CMP Stat Lab 12/23/23 12:00 Completed NT PRO BNPII Stat Lab 12/23/23 12:00 Completed PROTIME WITH INR Stat Lab 12/23/23 12:00 Completed TROPONIN Q4H Lab 12/23/23 12:00 Completed TROPONIN Q4H Lab 12/23/23 16:00 Ordered TROPONIN Q4H Lab 12/23/23 20:00 Ordered Medication Summary Discontinued Medications Generic Name Dose Route Start Last Admin Trade Name Sohailq PRN Reason Stop Dose Admin Aspirin 324 mg 12/23/23 11:45 12/23/23 11:59 Aspirin 81 Mg Tab.Chew PO 12/23/23 11:46 324 mg STAT ONE Administration Aspirin Confirm 12/23/23 11:57 Aspirin 81 Mg Tab.Chew Administered 12/23/23 11:58 Dose 324 mg .ROUTE .STK-MED ONE Lab/Rad Data: Laboratory Result Diagrams 12/23/23 12:00 12/23/23 12:00 Laboratory Results 12/23/23 12/23/23 12/23/23 Range/Units 12:00 12:00 12:00 WBC (4.0-10.5) x10^3/uL RBC (4.1-5.4) x10^6/uL Hgb (12.0-16.0) g/dL Hct (35-47) % MCV (78-100) fL MCH (26-32) pg MCHC (32-36) g/dL RDW (11.5-14.0) % Plt Count (150-450) x10^3/uL MPV (7.5-11.0) fL Gran % (36.0-66.0) % Immature Gran % (Auto) (0.00-0.4) % Nucleat RBC Rel Count (0.00-0.1) % Eos # (Auto) (0-0.5) x10^3/uL Immature Gran # (Auto) (0.00-0.03) x10^3u/L Absolute Lymphs (auto) (1.0-4.6) x10^3/uL Absolute Monos (auto) (0.0-1.3) x10^3/uL Absolute Nucleated RBC (0.00-0.01) x10^3u/L Lymphocytes % (24.0-44.0) % Monocytes % (0.0-12.0) % Eosinophils % (0.00-5.0) % Basophils % (0.0-0.4) % Absolute Granulocytes (1.4-6.9) x10^3/uL Basophils # (0-0.4) x10^3/uL PT 10.2 (9.4-12.5) SECONDS INR 0.93 (0.8-3.0) Sodium 143 (135-145) mmol/L Potassium 3.9 (3.5-5.1) mmol/L Chloride 112 H (98-107) mmol/L Carbon Dioxide 22 (22-30) mmol/L Anion Gap 13.0 (5-15) MEQ/L BUN 19 H (7-17) mg/dL Creatinine 0.78 (0.52-1.04) mg/dL Estimated GFR 93.1 ML/MIN Glucose 118 H (74-106) mg/dL Calcium 9.1 (8.4-10.2) mg/dL Total Bilirubin 0.40 (0.2-1.3) mg/dL AST 17 (14-36) U/L ALT 12 (0-35) U/L Alkaline Phosphatase 52 (38-126) U/L Troponin I < 0.012 (0.000-0.034) ng/mL NT-Pro-B Natriuret Pep < 20.0 (<300) pg/mL Serum Total Protein 7.3 (6.3-8.2) g/dL Albumin 4.4 (3.5-5.0) g/dL 12/23/23 Range/Units 12:00 WBC 7.8 (4.0-10.5) x10^3/uL RBC 3.97 L (4.1-5.4) x10^6/uL Hgb 12.8 (12.0-16.0) g/dL Hct 38.6 (35-47) % MCV 97.2 (78-100) fL MCH 32.2 H (26-32) pg MCHC 33.2 (32-36) g/dL RDW 12.6 (11.5-14.0) % Plt Count 313 (150-450) x10^3/uL MPV 10.1 (7.5-11.0) fL Gran % 65.2 (36.0-66.0) % Immature Gran % (Auto) 0.3 (0.00-0.4) % Nucleat RBC Rel Count 0.0 (0.00-0.1) % Eos # (Auto) 0.17 (0-0.5) x10^3/uL Immature Gran # (Auto) 0.02 (0.00-0.03) x10^3u/L Absolute Lymphs (auto) 1.79 (1.0-4.6) x10^3/uL Absolute Monos (auto) 0.67 (0.0-1.3) x10^3/uL Absolute Nucleated RBC 0.00 (0.00-0.01) x10^3u/L Lymphocytes % 23.1 L (24.0-44.0) % Monocytes % 8.6 (0.0-12.0) % Eosinophils % 2.2 (0.00-5.0) % Basophils % 0.6 (0.0-0.4) % Absolute Granulocytes 5.05 (1.4-6.9) x10^3/uL Basophils # 0.05 (0-0.4) x10^3/uL PT (9.4-12.5) SECONDS INR (0.8-3.0) Sodium (135-145) mmol/L Potassium (3.5-5.1) mmol/L Chloride (98-107) mmol/L Carbon Dioxide (22-30) mmol/L Anion Gap (5-15) MEQ/L BUN (7-17) mg/dL Creatinine (0.52-1.04) mg/dL Estimated GFR ML/MIN Glucose (74-106) mg/dL Calcium (8.4-10.2) mg/dL Total Bilirubin (0.2-1.3) mg/dL AST (14-36) U/L ALT (0-35) U/L Alkaline Phosphatase (38-126) U/L Troponin I (0.000-0.034) ng/mL NT-Pro-B Natriuret Pep (<300) pg/mL Serum Total Protein (6.3-8.2) g/dL Albumin (3.5-5.0) g/dL - Progress Progress: improved, re-examined Air Movement: good Progress Note: 12/23/23 13:23 This patient's medical issue is 1 of moderate complexity. The level complex in the workup performed is based on review of the patient's past medical history, review the patient's medication list, review of patient drug allergy list, history present illness and physical findings on examination. The workup in this patient includes placement of an intravenous line, twelve-lead EKG, CBC, D- dimer level, BNP, CMP, and chest x-ray. Differential diagnosis includes anxiety, stress, myocardial infarction, pulmonary embolus, pneumonia I interpreted the patient's laboratory data. The patient has no laboratory evidence of any acute, emergent findings. Chest x-ray was interpreted by the radiologist and I reviewed the impression. Impression states new minimal bibasilar stranding densities, subsegmental atelectasis/scarring Blood Culture(s) Obtained: No Antibiotics given: No Counseled pt/family regarding: lab results, diagnosis, need for follow-up, rad results Medical Desision Making - Diagnostic Testing Diagnostic test were ordered, analyzed, and reviewed by me: Yes Radiological Interpretation: Reviewed by me, Teleradiologist Report - Risk of complications The pt has a mod risk of morbidity or mortality based on: Need for prescription drug management - Departure Departure Disposition: Home Clinical Impression: Infiltrate of lung present on chest x-ray Condition: Stable Critical Care Time: No Referrals: DOCTOR,NO FAMILY [Primary Care Provider] - Follow up/PCP as directed Additional Instructions: Take your antibiotics and other medication as prescribed. Follow-up with your primary care physician, derrick operator and environmental project manager by phone today, 12/23/2023, to make a follow-up appointment in the next 5 to 7 days. Prescriptions: Cefdinir 300 mg PO BID #14 cap
[2023-12-23 11:50] VITALS: TEMP 97.9
[2023-12-23] MEDS ORDERED: BABY ASPIRIN 81 MG CHEW ONE (11:57)
[2023-12-23] MEDS: BABY ASPIRIN 81 MG CHEW PO ONE (11:59)
[2023-12-23 12:14] LABS: Absolute Neutrophil Ct (ANC) 5.05 x10^3/uL (1.4-6.9); BASOPHIL % 0.6 % (0.0-0.4); Basophil (Absolute #) 0.05 x10^3/uL (0-0.4); Eosinophil % 2.2 % (0.00-5.0); Eosinophil (Absolute #) 0.17 x10^3/uL (0-0.5); Hematocrit 38.6 % (35-47); Hemoglobin 12.8 g/dL (12.0-16.0); IMMATURE GRAN # 0.02 x10^3u/L (0.00-0.03); IMMATURE GRAN % 0.3 % (0.00-0.4); Lymphocyte (Absolute #) 1.79 x10^3/uL (1.0-4.6); Lymphocytes % 23.1 % (24.0-44.0); Mean Cell Volume 97.2 fL (78-100); Mean Corpuscular Hemoglobin 32.2 pg (26-32); Mean Corpuscular Hgb Concent. 33.2 g/dL (32-36); Mean Platelet Volume 10.1 fL (7.5-11.0); Monocyte (Absolute #) 0.67 x10^3/uL (0.0-1.3); Monocytes % 8.6 % (0.0-12.0); Neutrophil % 65.2 % (36.0-66.0); Platelet Count 313 x10^3/uL (150-450); Red Blood Count 3.97 x10^6/uL (4.1-5.4); Red Cell Distribution Width 12.6 % (11.5-14.0); White Blood Count 7.8 x10^3/uL (4.0-10.5)
[2023-12-23 12:24] LABS: INR 0.93 (0.8-3.0); PROTIME 10.2 SECONDS (9.4-12.5)
--- NOTE | 2023-12-23 12:29 | XRAY ---
Indication: Chest pain. Comparison: October 07, 2023 Portable chest demonstrate new minimal bibasilar stranding densities, subsegmental atelectasis/scarring. Remaining heart and upper lungs normal. Bony thorax intact again with cervical fusion.
[2023-12-23 12:35] LABS: ALBUMIN 4.4 g/dL (3.5-5.0); ALKALINE PHOSPHATASE 52 U/L (38-126); BLOOD UREA NITROGEN 19 mg/dL (7-17); CHLORIDE 112 mmol/L (98-107); Calcium 9.1 mg/dL (8.4-10.2); Carbon Dioxide 22 mmol/L (22-30); Creatinine 1 0.78 mg/dL (0.52-1.04); EST GLOMERULAR FILTRATION RATE 93.1 ML/MIN; Glucose 118 mg/dL (74-106); NT PRO BNPII < 20.0 pg/mL (<300); Potassium 3.9 mmol/L (3.5-5.1); SGOT/AST 17 U/L (14-36); SGPT/ALT 12 U/L (0-35); SODIUM 143 mmol/L (135-145); Total Protein 7.3 g/dL (6.3-8.2)
[2023-12-23 12:46] VITALS: BP 121/76; PULSE 77; RESP 18; O2SAT 96
== END 2023-12-23 14:08 | disposition home or self-care (01) ==
LOC: ED 11:38
DX: R91.8 Other nonspecific abnormal finding of lung field (principal); R07.9 Chest pain, unspecified; E78.5 Hyperlipidemia, unspecified; J44.9 Chronic obstructive pulmonary disease, unspecified; M32.9 Systemic lupus erythematosus, unspecified; F17.200 Nicotine dependence, unspecified, uncomplicated; F41.9 Anxiety disorder, unspecified; Z20.828 Contact with and (suspected) exposure to other viral communicable diseases; Z79.899 Other long term (current) drug therapy
CPT/HCPCS: 36000; 36415; 71045; 80053; 83880; 84484; 85025; 85610; 93005; 93041; 94760; 99284; A9270-GY

== ENCOUNTER 2024-01-07 20:47 | Emergency (ER) | payer OTHER ==
[2024-01-07 21:06] VITALS: PULSE 82; RESP 16; TEMP 98.1
[2024-01-07] MEDS ORDERED: Norflex 60 MG/2 ML ONE (21:16)
[2024-01-07] MEDS ORDERED: TORAdol 30 mg Injection ONE (21:16)
[2024-01-07] MEDS: TORAdol 30 mg Injection IM ONE (21:20)
[2024-01-07] MEDS: Norflex 60 MG/2 ML IM ONE (21:23)
[2024-01-07 22:07] VITALS: BP 128/87; O2SAT 98
[2024-01-07] MEDS ORDERED: NORCO 5/325 MG ONE (22:22)
[2024-01-07] MEDS: NORCO 5/325 MG PO ONE (22:23)
--- NOTE | 2024-01-07 22:26 | ERPHSYRPT ---
- History of Present Illness Time Seen by Provider: 01/07/24 20:47 Source: patient Exam Limitations: no limitations Patient Subjective Stated Complaint: pt states she was laying on her bed and her gransdson jumped onto her back. pt states she heard a pop and now has pain r adiating from her lower back down her right leg. Triage Nursing Assessment: pt alert and oriented, answers questions approp. pt ambulates into room with limping gait noted, respirations nonlabored. skin warm and dry. Physician History: 48-year-old female with history of chronic back pain presented in the ER sudden worsening after she was lying on her belly and her grandson jumped on her back. Patient reports she felt a popping sound. Pain is moderate to severe sharp with radiation to right lower extremity without any numbness tingling or weakness of lower extremities. No saddle anesthesia. No difficulty urination/loss of bowel or bladder control. Patient is able to ambulate in the ER without any limitation. Allergies/Adverse Reactions: ca Allergy (Severe, Verified 01/07/24 21:07) Swelling pregabalin [From Lyrica] Allergy (Severe, Verified 01/07/24 21:07) amoxicillin Allergy (Verified 01/07/24 21:07) Rash Penicillins Allergy (Verified 01/07/24 21:07) Rash propoxyphene HCl [From Darvon] Allergy (Verified 01/07/24 21:07) PASS OUT Home Medications: Propranolol HCl [Inderal 20 MG] 40 mg PO BID 02/20/19 [History] levETIRAcetam [Levetiracetam] 1,250 mg PO BID 02/20/19 [History] Hydroxychloroquine Sulfate 200 mg PO DAILY 02/19/23 [History] Prazosin HCl 2 mg PO HS 02/19/23 [History] Ropinirole 2Mg [Requip 2Mg Tab] 2 mg PO HS 02/19/23 [History] lamoTRIgine [Lamictal] 150 mg PO HS 02/19/23 [History] Erenumab-Aooe [Aimovig Autoinjector] 175 mg SQ UD 05/23/23 [History] Trihexyphenidyl HCl 5 mg PO TID PRN PRN 05/23/23 [History] lamoTRIgine [Lamotrigine] 200 mg PO DAILY 06/11/23 [History] Buspirone HCl 15 mg PO BID 01/07/24 [History] Hx Tetanus, Diphtheria Vaccination/Date Given: Yes Hx Influenza Vaccination/Date Given: Yes Hx Pneumococcal Vaccination/Date Given: No Immunizations Up to Date: Yes Travel Risk - International Travel Have you traveled outside of the country in past 3 weeks: No - Emerging Infectious Disease Are you exhibiting symptoms associated with any current EIDs: No - Review of Systems Constitutional: No Symptoms Ears, Nose, & Throat: No Symptoms Respiratory: No Symptoms Cardiac: No Symptoms Abdominal/Gastrointestinal: No Symptoms Genitourinary Symptoms: No Symptoms Musculoskeletal: Back Pain Skin: No Symptoms Neurological: No Symptoms Endocrine: No Symptoms Hematologic/Lymphatic: No Symptoms Immunological/Allergic: No Symptoms - Past Medical History Pertinent Past Medical History: Yes Neurological History: Seizures ENT History: No Pertinent History Cardiac History: High Cholesterol Respiratory History: COPD Endocrine Medical History: Other Musculoskeletal History: Degenerative Disk Disease, Fibromyalgia GI Medical History: Esophageal Disorder, GERD History: No Pertinent History Psycho-Social History: Anxiety, Bipolar, Depression, Panic Disorder Female Reproductive Disorders: Abnormal Uterine Bleeding Other Medical History: Lupus, Neuropathy, DDD, bipolar 1 schizophrenia, PTSD - Past Surgical History Past Surgical History: Yes Neuro Surgical History: No Pertinent History Cardiac: No Pertinent History Respiratory: No Pertinent History Gastrointestinal: No Pertinent History Genitourinary: No Pertinent History Musculoskeletal: Other Female Surgical History: Section, Tubal Ligation, Other Other Surgical History: ABLATION - TUBAL LIGATION. BILATERAL WRIST SURGERY. PLATE AND TWO SCREWS IN THE BACK OF NECK. 12/26/20 Surgery to back. cadaver bone in neck - Female History Hx Last Menstrual Period: ablation Hx Now: No - Social History Smoking Status: Current every day smoker How long have you smoked: 32 yrs Exposure to second hand smoke: Yes Drug Use: none Patient Lives Alone: No - Nursing Vital Signs Nursing Vital Signs: Initial Vital Signs Temperature 98.1 F 01/07/24 20:53 Pulse Rate 82 01/07/24 20:53 Respiratory Rate 16 01/07/24 20:53 Blood Pressure 139/75 01/07/24 20:53 O2 Sat by Pulse Oximetry 96 01/07/24 20:53 Pain Scale Pain Intensity [Right Lower 8 Back] Pain Intensity 8 - Physical Exam General Appearance: no apparent distress, alert Ears, Nose, Throat Exam: normal ENT inspection Neck Exam: normal inspection, full range of motion Respiratory Exam: normal breath sounds, lungs clear Cardiovascular Exam: regular rate/rhythm, normal heart sounds Gastrointestinal Exam: soft, normal bowel sounds, No tenderness Extremity Exam: normal inspection, normal range of motion, pelvis stable, tenderness (Tenderness lower lumbar spinal and paraspinal area, some tenderness right sacroiliac area. Straight leg raising test positive at 45 degree on the right. Intact and symmetric sensation/power/2+ reflexes in lower extremities.) Neurologic Exam: alert, 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, cooperative, nml cerebellar function, sensation nml, No motor deficits Skin Exam: normal color SpO2 Interpretation: normal SpO2: 98 O2 Delivery: Room Air Ordered Tests: Active Orders 24 hr Category Date Time Status LUMBAR SPINE W/O [CT] Stat Exams 01/07/24 21:33 Taken Medication Summary Discontinued Medications Generic Name Dose Route Start Last Admin Trade Name Freq PRN Reason Stop Dose Admin Ketorolac Tromethamine 30 mg 01/07/24 21:13 01/07/24 21:20 Ketorolac Tromethamine 30 Mg/Ml Inj IM 01/07/24 21:14 30 mg STAT ONE Administration Ketorolac Tromethamine Confirm 01/07/24 21:16 Ketorolac Tromethamine 30 Mg/Ml Inj Administered 01/07/24 21:17 Dose 30 mg .ROUTE .STK-MED ONE Orphenadrine Citrate 60 mg 01/07/24 21:14 01/07/24 21:23 Orphenadrine Citrate 60 Mg/2 Ml Vial IM 01/07/24 21:15 60 mg STAT ONE Administration Orphenadrine Citrate Confirm 01/07/24 21:16 Orphenadrine Citrate 60 Mg/2 Ml Vial Administered 01/07/24 21:17 Dose 60 mg .ROUTE .STK-MED ONE - Progress Progress: improved Progress Note: 01/07/24 22:22 48-year-old is evaluated for sudden worsening of low back pain after her grandson 2-year-old who jumped on her back. She has negative neuro exam in lower extremities. No cauda equina symptoms. She does have some tenderness. Given Toradol and Norflex, on reevaluation she is feeling much better but not completely resolved. She is given a oral [place]. I have obtained CT lumbar spine which is negative for fracture or subluxation. No canal narrowing. I believe patient has contusion, strain of back with some sciatica symptoms. I would continue with NSAIDs and muscle relaxants to go home and outpatient Ortho follow-up recommended. Discussed signs symptoms of worsening needing return to ER which she seems understanding. Stable for discharge. Counseled pt/family regarding: diagnosis, need for follow-up, rad results Medical Desision Making - Diagnostic Testing Diagnostic test were ordered, analyzed, and reviewed by me: Yes Radiological Interpretation: Reviewed by me, Teleradiologist Report - Risk of complications The pt has a mod risk of morbidity or mortality based on: Need for prescription drug management - Departure Departure Disposition: Home Clinical Impression: Low back pain Qualifiers: Chronicity: acute Back pain laterality: right Sciatica presence: with sciatica Sciatica laterality: sciatica of right side Qualified Code(s): M54.41 - Lumbago with sciatica, right side Condition: Stable Critical Care Time: No Referrals: RENATE FOSTER [Primary Care Provider] - Follow up with PCP 1 day JUDY ROBLES MD [ACTIVE STAFF] - Follow up/PCP as directed (Call in the morning for appointment for reevaluation) Instructions: Sciatica (DC), Low Back Pain (DC) Additional Instructions: Take Tylenol/diclofenac as needed for pain. Do not take ibuprofen while taking diclofenac. Follow-up with primary care or orthopedics for reevaluation. Return to ER for intractable low back pain, numbness tingling weakness of lower extremities, perineal numbness, loss of bowel or bladder control etc. Prescriptions: Cyclobenzaprine HCl 10 mg [Flexeril 10 MG] 10 mg PO TID #20 tablet Diclofenac Sodium 50 mg [Voltaren 50 mg] 50 mg PO TID PRN 10 Days #25 tablet PRN Reason: Pain
--- NOTE | 2024-01-08 08:51 | XRAY ---
Indication: Low back and right leg pain. Multiple contiguous axial images obtained through the lumbar spine. Sagittal and coronal reformatted images obtained. Comparison: August 22, 2023 Axial images again negative for acute fracture, suspicious bony lesions, or spinal canal stenosis. Stable bilateral L4-S1 degenerative facet arthropathy. Sagittal and coronal reformatted images again demonstrates mild levoscoliosis centered at L3. Vertebral body heights/disc spaces maintained. No acute compression fracture or subluxation. Visualized noncontrasted soft tissues demonstrates stable 2.4 cm left upper renal exophytic cyst. Left kidney also demonstrates new nonobstructing punctate calculus. Impression: 1. New nonobstructing left renal punctate calculus. 2. Again chronic findings including levoscoliosis, L4-S1 degenerative facet arthropathy, and left renal cyst. 3. Remaining CT lumbar spine is negative.
== END 2024-01-07 22:40 | disposition home or self-care (01) ==
LOC: ED 20:47
DX: M54.41 Lumbago with sciatica, right side (principal); E78.5 Hyperlipidemia, unspecified; Z79.899 Other long term (current) drug therapy; Z72.0 Tobacco use
CPT/HCPCS: 72131; 96372; 99283; J1885; J2360; A9270-GY

== ENCOUNTER 2024-02-03 11:45 | Day surgery (SDC) | payer OTHER ==
[2013-06-28 16:00] VITALS: BP 119/67
[2024-02-03] MEDS ORDERED: LIDOCAINE HCL 2% 100 MG/5 ML IJ ONE (11:46)
[2024-02-03 13:12] LABS: HCG URINE TEST NEGATIVE (NEGATIVE)
[2024-02-03] MEDS ORDERED: Lactated Ringers 1,000 ML IV ONE (14:06)
[2024-02-03] MEDS ORDERED: DIPRIVAN 200 MG/20 ML IV ONE (14:13)
[2024-02-03] MEDS ORDERED: Zofran 4 MG/2 ML VIAL ONE (14:14)
[2024-02-03] MEDS ORDERED: Xylocaine-Mpf 2% 5 Ml Vial ONE (14:20)
[2024-02-03] MEDS ORDERED: MORPHINE SULFATE 2 MG INJ ONE (14:53)
--- NOTE | 2024-02-03 15:11 | XRAY ---
Indication: Bilateral L4-S1 MBB. Intraoperative fluoroscopy provided for 14 seconds. Single digital spot image submitted for interpretation demonstrates posterior needle tips projecting over the expected left and right L4-S1 nerve roots. Correlate with intraoperative findings/report.
--- NOTE | 2024-02-03 15:16 | XRAY ---
14 seconds of fluoroscopy was used in surgery for a bilateral L4-S1 MBB.
== END 2024-02-03 15:15 | disposition home or self-care (01) ==
LOC: SDC-PAIN 11:45
PROVIDERS: ATTEND Psychiatry & Neurology Pain Medicine
DX: M47.816 Spondylosis without myelopathy or radiculopathy, lumbar region (principal)
CPT/HCPCS: 64493; 64494; 72020; 77002; 81025; J2270; J2405; J2704

== ENCOUNTER 2024-03-09 09:21 | Day surgery (SDC) | payer OTHER ==
[2013-06-28 16:00] VITALS: BP 119/67
[2024-03-09] MEDS ORDERED: BUPIVACAINE 0.5% VIAL IJ ONE (09:22)
[2024-03-09 09:42] LABS: HCG URINE TEST NEGATIVE (NEGATIVE)
[2024-03-09] MEDS ORDERED: DIPRIVAN 200 MG/20 ML IV ONE (10:47)
[2024-03-09] MEDS ORDERED: Lactated Ringers 1,000 ML IV ONE (11:16)
--- NOTE | 2024-03-09 11:56 | XRAY ---
Indication: Bilateral L4-S1 MBB. Intraoperative fluoroscopy provided for 25 seconds. Single digital spot image submitted for interpretation demonstrates posterior needle tips projecting over the expected left and right L4-S1 nerve roots. Correlate with intraoperative findings/report.
--- NOTE | 2024-03-09 12:07 | XRAY ---
25 seconds of fluoroscopy was used in surgery for a bilateral L4-S1 MBB.
== END 2024-03-09 11:20 | disposition home or self-care (01) ==
LOC: SDC-PAIN 09:21
PROVIDERS: ATTEND Psychiatry & Neurology Pain Medicine
DX: M47.816 Spondylosis without myelopathy or radiculopathy, lumbar region (principal)
CPT/HCPCS: 64493; 64494; 72020; 77002; 81025; J2704

== ENCOUNTER 2024-03-14 13:01 | Emergency (ER) | payer OTHER ==
[2024-03-14 13:22] VITALS: TEMP 97.2
[2024-03-14] MEDS ORDERED: MORPHINE SULFATE 4 MG INJ ONE (14:02)
[2024-03-14] MEDS ORDERED: Sodium Chloride 0.9% 1000 ML 1,000 ML ONE (14:02)
[2024-03-14] MEDS ORDERED: Zofran 4 MG/2 ML VIAL ONE (14:02)
[2024-03-14] MEDS: Sodium Chloride 0.9% 1000 ML 1,000 ML IV STA (14:04)
[2024-03-14 14:05] LABS: BASOPHIL % 0.8 % (0.0-0.4); Basophil (Absolute #) 0.08 x10^3/uL (0-0.4); Eosinophil % 1.8 % (0.00-5.0); Eosinophil (Absolute #) 0.17 x10^3/uL (0-0.5); Hematocrit 42.3 % (35-47); Hemoglobin 14.3 g/dL (12.0-16.0); IMMATURE GRAN # 0.02 x10^3u/L (0.00-0.03); IMMATURE GRAN % 0.2 % (0.00-0.4); Lymphocyte (Absolute #) 1.79 x10^3/uL (1.0-4.6); Lymphocytes % 18.7 % (24.0-44.0); Mean Cell Volume 94.4 fL (78-100); Mean Corpuscular Hemoglobin 31.9 pg (26-32); Mean Corpuscular Hgb Concent. 33.8 g/dL (32-36); Mean Platelet Volume 9.6 fL (7.5-11.0); Monocytes % 5.2 % (0.0-12.0); Neutrophil % 73.3 % (36.0-66.0); Platelet Count 385 x10^3/uL (150-450); Red Blood Count 4.48 x10^6/uL (4.1-5.4); Red Cell Distribution Width 12.6 % (11.5-14.0); White Blood Count 9.6 x10^3/uL (4.0-10.5)
[2024-03-14] MEDS: Zofran 4 MG/2 ML VIAL IV ONE (14:05)
[2024-03-14] MEDS: MORPHINE SULFATE 4 MG INJ IV ONE (14:05)
[2024-03-14 14:10] LABS: Appearance Cloudy (Clear); Bacteria None Seen /HPF (None Seen); Bilirubin Negative (Negative); Blood Trace (Negative); Epithelial Cells Moderate /HPF (None Seen); Glucose, Urine Negative (Negative); Hyaline Casts NONE SEEN /LPF (0-2); Ketones Trace (Negative); Leukocyte Esterase Moderate (Negative); Nitrite Negative (Negative); Ph 5.5 (4.6-8.0); Protein,Urine Dip Trace (Negative); Specific Gravity 1.025 (1.005-1.030); Urobilinogen 0.2 mg/dL (0.2); WBC 51-100 /HPF (0-5)
[2024-03-14 14:13] LABS: ADD URINE CULTURE? YES (NO)
[2024-03-14 14:19] LABS: ALBUMIN 4.7 g/dL (3.5-5.0); ANION GAP 11.3 MEQ/L (5-15); BILIRUBIN,TOTAL 0.7 mg/dL (0.2-1.3); Calcium 9.6 mg/dL (8.4-10.2); Creatinine 1 0.8 mg/dL (0.52-1.04); EST GLOMERULAR FILTRATION RATE 90.3 ML/MIN; Potassium 3.7 mmol/L (3.5-5.1); Total Protein 8.1 g/dL (6.3-8.2)
[2024-03-14 15:12] VITALS: O2SAT 95
[2024-03-14] MEDS ORDERED: MORPHINE SULFATE 4 MG INJ IV PRN (15:44)
--- NOTE | 2024-03-14 16:27 | XRAY ---
CLINICAL HISTORY: vomiting/dirrhea , colitis? COMPARISON: 08/22/2023. TECHNIQUE: A CT scan of the abdomen and pelvis was performed with IV contrast. Coronal and sagittal reconstructive images were also obtained. One of the following dose reduction techniques was utilized for this exam.Automated exposure control, adjustment of the mA and/or kV according to patient size, and use of iterative reconstruction. FINDINGS: The liver is enlarged measuring 20 cm. No focal or diffuse parenchymal abnormality. The portal vein, intrahepatic biliary radicals, and the bile ducts are normal. The gallbladder is normal. No pericholecystic collection or radio-dense calculi in the gall bladder. Unchanged multiple calcified foci in the spleen, most likely corresponding to granulomas. No focal lesions. The pancreas and adrenal glands are unremarkable. The kidneys are normal in size and shape. No right renal calculi or masses. No hydronephrosis. Unchanged left renal upper polar non-enhancing cortical cyst about 2.5 cm (Bosniak type I). Unchanged left renal lower calyceal tiny non-obstructive calculus. The ascending colon, the transverse colon, and the visualized small bowel loops are unremarkable. Unchanged few small size rounded outpouchings are seen arising from the outer wall of the sigmoid colon consistent with colonic diverticulosis. No evidence of diverticulitis. No CT evidence of acute appendicitis. Unchanged hiatus hernia. The urinary bladder is unremarkable. No gross uterine abnormality could be identified. Left adnexal small non-enhancing cyst about 1.5 cm. The pelvic vasculature is unremarkable. No evidence of abdominopelvic lymphadenopathy. No ascites. A scan through the lower chest reveals an unchanged right lung lower lobe nodule of about 6 mm. Degenerative changes of the scanned spine. IMPRESSION: 1. No acute abdominopelvic abnormality was seen. No significant interval changes. 2. Unchanged hepatomegaly. Laboratory correlation is advised. 3. Unchanged left renal lower calyceal tiny non-obstructive calculus. 4. Unchanged sigmoiddiverticulosis. No evidence of diverticulitis. 5. Unchanged hiatus hernia. 6. Left adnexal small non-enhancing cyst about 1.5 cm. US evaluation is advised. 7. Unchanged right lung lower lobe nodule of about 6 mm. Electronically Signed by: Nicolasa Romano MD. (03/14/2024 16:24:15 EDT)
[2024-03-14] MEDS ORDERED: Hydromorphone 1 mg/ml Injection ONE (16:39)
[2024-03-14] MEDS: Hydromorphone 1 mg/ml Injection IV ONE (16:40)
--- NOTE | 2024-03-14 17:08 | ERPHSYRPT ---
- History of Present Illness Time Seen by Provider: 03/14/24 13:25 Historian: patient Exam Limitations: no limitations Patient Subjective Stated Complaint: Pt states that she didn't feel 100% yesterday and today she woke up with diarrhea, N&V, and her rectum feels like it has been sliced open and she feels like her body is having hot flashes Triage Nursing Assessment: Pt brought self to the ER, rates pain as 5/10, states that the pain is on her kalee lateral abdomen and it radiates around to her back, more on the right than the left, pulses normal, skin n/w/d, no difficulty breathing, walked into the ER with no difficulty, appears to be moderately uncomfortable Physician History: 48-year-old female with history of seizures, lupus presented in the ER with complains of generalized abdominal pain with nausea and an episode of vomiting and multiple episodes of loose watery stools since morning. Patient reports ge neralized aches and pains yesterday. Because of repeated episodes of diarrheashe is having burning sensation around the rectum. No fever or chills reported. Allergies/Adverse Reactions: ca Allergy (Severe, Verified 03/14/24 13:20) Swelling pregabalin [From Lyrica] Allergy (Severe, Verified 03/14/24 13:20) amoxicillin Allergy (Verified 03/14/24 13:20) Rash Penicillins Allergy (Verified 03/14/24 13:20) Rash propoxyphene HCl [From Darvon] Allergy (Verified 03/14/24 13:20) PASS OUT Home Medications: Propranolol HCl [Inderal 20 MG] 40 mg PO BID 02/20/19 [History] levETIRAcetam [Levetiracetam] 1,250 mg PO BID 02/20/19 [History] Hydroxychloroquine Sulfate 200 mg PO DAILY 02/19/23 [History] Prazosin HCl 2 mg PO HS 02/19/23 [History] Ropinirole 2Mg [Requip 2Mg Tab] 2 mg PO HS 02/19/23 [History] lamoTRIgine [Lamictal] 150 mg PO HS 02/19/23 [History] Erenumab-Aooe [Aimovig Autoinjector] 175 mg SQ UD 05/23/23 [History] Trihexyphenidyl HCl 5 mg PO TID PRN PRN 05/23/23 [History] lamoTRIgine [Lamotrigine] 200 mg PO DAILY 06/11/23 [History] Buspirone HCl 15 mg PO BID 01/07/24 [History] Hx Tetanus, Diphtheria Vaccination/Date Given: Yes Hx Influenza Vaccination/Date Given: Yes Hx Pneumococcal Vaccination/Date Given: No Travel Risk - International Travel Have you traveled outside of the country in past 3 weeks: No - Emerging Infectious Disease Are you exhibiting symptoms associated with any current EIDs: Yes Symptoms: Abdominal Pain, Diarrhea, Vomitting - Review of Systems Constitutional: No Symptoms Ears, Nose, & Throat: No Symptoms Respiratory: No Symptoms Cardiac: No Symptoms Abdominal/Gastrointestinal: Abdominal Pain, Nausea, Vomiting, Diarrhea Genitourinary Symptoms: No Symptoms Musculoskeletal: No Symptoms Skin: No Symptoms Neurological: No Symptoms Endocrine: No Symptoms Hematologic/Lymphatic: No Symptoms - Past Medical History Pertinent Past Medical History: Yes Neurological History: Seizures ENT History: No Pertinent History Cardiac History: High Cholesterol Respiratory History: COPD Endocrine Medical History: Other Musculoskeletal History: Degenerative Disk Disease, Fibromyalgia GI Medical History: Esophageal Disorder, GERD History: No Pertinent History Psycho-Social History: Anxiety, Bipolar, Depression, Panic Disorder Female Reproductive Disorders: Abnormal Uterine Bleeding Other Medical History: Lupus, Neuropathy, DDD, bipolar 1 schizophrenia, PTSD - Past Surgical History Past Surgical History: Yes Neuro Surgical History: No Pertinent History Cardiac: No Pertinent History Respiratory: No Pertinent History Gastrointestinal: No Pertinent History Genitourinary: No Pertinent History Musculoskeletal: Other Female Surgical History: Section, Tubal Ligation, Other Other Surgical History: ABLATION - TUBAL LIGATION. BILATERAL WRIST SURGERY. PLATE AND TWO SCREWS IN THE BACK OF NECK. 12/26/20 Surgery to back. cadaver francisca ne in neck - Female History Hx Now: No (tubal and ablation) - Social History Smoking Status: Current every day smoker How long have you smoked: 32 yrs Exposure to second hand smoke: Yes Drug Use: none Patient Lives Alone: No - Nursing Vital Signs Nursing Vital Signs: Initial Vital Signs Temperature 97.2 F 03/14/24 13:07 Pulse Rate 71 03/14/24 13:07 Blood Pressure 116/80 03/14/24 13:07 O2 Sat by Pulse Oximetry 97 03/14/24 13:07 Pain Scale Pain Intensity 5 - Physical Exam General Appearance: no apparent distress, alert Eye Exam: PERRL/EOMI Ears, Nose, Throat Exam: normal ENT inspection Neck Exam: normal inspection, full range of motion Respiratory Exam: normal breath sounds, lungs clear Cardiovascular Exam: regular rate/rhythm, normal heart sounds Gastrointestinal/Abdomen Exam: soft, normal bowel sounds, tenderness (Mild generalized), No distention, No guarding Back Exam: normal inspection, normal range of motion Extremity Exam: normal inspection, normal range of motion Neurologic Exam: alert, 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, cooperative Skin Exam: normal color SpO2 Interpretation: normal SpO2: 95 O2 Delivery: Room Air Ordered Tests: Active Orders 24 hr Category Date Time Status IV Insertion STAT Care 03/14/24 13:38 Active NPO (ED) STAT Care 03/14/24 13:38 Active ABDOMEN AND PELVIS W CONTRAST [CT] Stat Exams 03/14/24 13:39 Completed CBC W DIFF Stat Lab 03/14/24 13:50 Completed CMP Stat Lab 03/14/24 13:50 Completed CULTURE,URINE Stat Lab 03/14/24 14:01 Received LIPASE Stat Lab 03/14/24 13:50 Completed Lactic Acid Stat Lab 03/14/24 13:50 Completed UA W/RFX UR CULTURE Stat Lab 03/14/24 14:01 Completed Medication Summary Generic Name Dose Route Start Last Admin Trade Name Freq PRN Reason Stop Dose Admin Morphine Sulfate 4 mg 03/14/24 15:44 Morphine Sulfate 4 Mg/Ml Injection IV 03/19/24 15:43 Q1H/PRN PRN PAIN Discontinued Medications Generic Name Dose Route Start Last Admin Trade Name Freq PRN Reason Stop Dose Admin Hydromorphone HCl 1 mg 03/14/24 16:29 03/14/24 16:40 Hydromorphone 1 Mg/1ml Inj IV 03/14/24 16:30 1 mg STAT ONE Administration Hydromorphone HCl Confirm 03/14/24 16:39 Hydromorphone 1 Mg/1ml Inj Administered 03/14/24 16:40 Dose 1 mg .ROUTE .STK-MED ONE Sodium Chloride 1,000 mls @ 999 mls/hr 03/14/24 13:38 03/14/24 15:34 Sodium Chloride 0.9% 1000 Ml IV 03/14/24 14:38 Infused .Q1H1M STA Infusion Sodium Chloride Confirm 03/14/24 14:02 Sodium Chloride 0.9% 1000 Ml Administered 03/14/24 14:03 Dose 1,000 mls @ ud .ROUTE .STK-MED ONE Morphine Sulfate 4 mg 03/14/24 13:38 03/14/24 14:05 Morphine Sulfate 4 Mg/Ml Injection IV 03/14/24 13:39 4 mg STAT ONE Administration Morphine Sulfate Confirm 03/14/24 14:02 Morphine Sulfate 4 Mg/Ml Injection Administered 03/14/24 14:03 Dose 4 mg .ROUTE .STK-MED ONE Ondansetron HCl 4 mg 03/14/24 13:38 03/14/24 14:05 Ondansetron Hcl 4 Mg/2 Ml Vial IV 03/14/24 13:39 4 mg STAT ONE Administration Ondansetron HCl Confirm 03/14/24 14:02 Ondansetron Hcl 4 Mg/2 Ml Vial Administered 03/14/24 14:03 Dose 4 mg .ROUTE .STK-MED ONE Lab/Rad Data: Laboratory Result Diagrams 03/14/24 13:50 03/14/24 13:50 Laboratory Results 03/14/24 03/14/24 03/14/24 Range/Units 14:01 13:50 13:50 WBC (4.0-10.5) x10^3/uL RBC (4.1-5.4) x10^6/uL Hgb (12.0-16.0) g/dL Hct (35-47) % MCV (78-100) fL MCH (26-32) pg MCHC (32-36) g/dL RDW (11.5-14.0) % Plt Count (150-450) x10^3/uL MPV (7.5-11.0) fL Gran % (36.0-66.0) % Immature Gran % (Auto) (0.00-0.4) % Nucleat RBC Rel Count (0.00-0.1) % Eos # (Auto) (0-0.5) x10^3/uL Immature Gran # (Auto) (0.00-0.03) x10^3u/L Absolute Lymphs (auto) (1.0-4.6) x10^3/uL Absolute Monos (auto) (0.0-1.3) x10^3/uL Absolute Nucleated RBC (0.00-0.01) x10^3u/L Lymphocytes % (24.0-44.0) % Monocytes % (0.0-12.0) % Eosinophils % (0.00-5.0) % Basophils % (0.0-0.4) % Absolute Granulocytes (1.4-6.9) x10^3/uL Basophils # (0-0.4) x10^3/uL Sodium 141 (135-145) mmol/L Potassium 3.7 (3.5-5.1) mmol/L Chloride 111 H (98-107) mmol/L Carbon Dioxide 22 (22-30) mmol/L Anion Gap 11.3 (5-15) MEQ/L BUN 14 (7-17) mg/dL Creatinine 0.80 (0.52-1.04) mg/dL Estimated GFR 90.3 ML/MIN Glucose 103 (74-106) mg/dL Lactic Acid 0.8 (0.4-2.0) Calcium 9.6 (8.4-10.2) mg/dL Total Bilirubin 0.70 (0.2-1.3) mg/dL AST 29 (14-36) U/L ALT 16 (0-35) U/L Alkaline Phosphatase 69 (38-126) U/L Serum Total Protein 8.1 (6.3-8.2) g/dL Albumin 4.7 (3.5-5.0) g/dL Lipase 86 (23-300) U/L Urine Color Dark Yellow A (Yellow) Urine Appearance Cloudy A (Clear) Urine pH 5.5 (4.6-8.0) Ur Specific [place] 1.025 (1.005-1.030) Urine Protein Trace A (Negative) Urine Glucose (UA) Negative (Negative) mg/dL Urine Ketones Trace A (Negative) Urine Blood Trace (Negative) Urine Nitrite Negative (Negative) Urine Bilirubin Negative (Negative) Urine Urobilinogen 0.2 (0.2) mg/dL Ur Leukocyte Esterase Moderate A (Negative) U Hyaline Cast (Auto) NONE SEEN (0-2) /LPF Urine Microscopic RBC 3-5 (0-5) /HPF Urine Microscopic WBC 51-100 A (0-5) /HPF Ur Epithelial Cells Moderate A (None Seen) /HPF Urine Bacteria None Seen (None Seen) /HPF Urine Culture Reflexed YES (NO) 03/14/24 Range/Units 13:50 WBC 9.6 (4.0-10.5) x10^3/uL RBC 4.48 (4.1-5.4) x10^6/uL Hgb 14.3 (12.0-16.0) g/dL Hct 42.3 (35-47) % MCV 94.4 (78-100) fL MCH 31.9 (26-32) pg MCHC 33.8 (32-36) g/dL RDW 12.6 (11.5-14.0) % Plt Count 385 (150-450) x10^3/uL MPV 9.6 (7.5-11.0) fL Gran % 73.3 H (36.0-66.0) % Immature Gran % (Auto) 0.2 (0.00-0.4) % Nucleat RBC Rel Count 0.0 (0.00-0.1) % Eos # (Auto) 0.17 (0-0.5) x10^3/uL Immature Gran # (Auto) 0.02 (0.00-0.03) x10^3u/L Absolute Lymphs (auto) 1.79 (1.0-4.6) x10^3/uL Absolute Monos (auto) 0.50 (0.0-1.3) x10^3/uL Absolute Nucleated RBC 0.00 (0.00-0.01) x10^3u/L Lymphocytes % 18.7 L (24.0-44.0) % Monocytes % 5.2 (0.0-12.0) % Eosinophils % 1.8 (0.00-5.0) % Basophils % 0.8 (0.0-0.4) % Absolute Granulocytes 7.00 H (1.4-6.9) x10^3/uL Basophils # 0.08 (0-0.4) x10^3/uL Sodium (135-145) mmol/L Potassium (3.5-5.1) mmol/L Chloride (98-107) mmol/L Carbon Dioxide (22-30) mmol/L Anion Gap (5-15) MEQ/L BUN (7-17) mg/dL Creatinine (0.52-1.04) mg/dL Estimated GFR ML/MIN Glucose (74-106) mg/dL Lactic Acid (0.4-2.0) Calcium (8.4-10.2) mg/dL Total Bilirubin (0.2-1.3) mg/dL AST (14-36) U/L ALT (0-35) U/L Alkaline Phosphatase (38-126) U/L Serum Total Protein (6.3-8.2) g/dL Albumin (3.5-5.0) g/dL Lipase (23-300) U/L Urine Color (Yellow) Urine Appearance (Clear) Urine pH (4.6-8.0) Ur Specific [place] (1.005-1.030) Urine Protein (Negative) Urine Glucose (UA) (Negative) mg/dL Urine Ketones (Negative) Urine Blood (Negative) Urine Nitrite (Negative) Urine Bilirubin (Negative) Urine Urobilinogen (0.2) mg/dL Ur Leukocyte Esterase (Negative) U Hyaline Cast (Auto) (0-2) /LPF Urine Microscopic RBC (0-5) /HPF Urine Microscopic WBC (0-5) /HPF Ur Epithelial Cells (None Seen) /HPF Urine Bacteria (None Seen) /HPF Urine Culture Reflexed (NO) - Progress Progress: improved, pain not gone completely, re-examined Progress Note: 03/14/24 17:05 48-year-old is evaluated in the ER for abdominal pain with nausea and, vomiting x 1 and multiple episodes of loose stool with soreness around rectum/anus. Patient is given some fluids and symptomatic treatment, on reevaluation her pain is better. Still have some soreness around rectum area. She does not have any rectal bleed. No hematemesis. Workup showed normal white count, fairly unremarkable chemistries. Does have some element of UTI and started on ciprofloxacin. I have obtained CT abdomen pelvis with contrast which is negative for any acute findings. I believe patient has possibly viral etiology gastroenteritis, recommended supportive care and outpatient follow-up. Discussed signs symptoms of worsening needing return to ER which she seems understanding. Stable for discharge. Counseled pt/family regarding: lab results, diagnosis, need for follow-up, rad results Medical Desision Making - Diagnostic Testing Diagnostic test were ordered, analyzed, and reviewed by me: Yes Radiological Interpretation: Reviewed by me, Teleradiologist Report - Risk of complications The pt has a mod risk of morbidity or mortality based on: Need for prescription drug management - Departure Departure Disposition: Home Clinical Impression: Gastroenteritis, UTI (urinary tract infection) Condition: Stable Critical Care Time: No Referrals: FRANSISCA RAY, NUCLEAR MEDICAL TECHNOLOGIST [Primary Care Provider] - Follow up with PCP 1 day Instructions: Diarrhea and Traveler's Diarrhea, Adult (DC) Additional Instructions: Drink plenty of fluids. Take Tylenol/Zofran as needed. Follow-up with primary care for reevaluation. Return to ER for intractable pain/vomiting/diarrhea or if develop fever chills. Prescriptions: Ciprofloxacin [Cipro 500 MG] 500 mg PO BID #14 tablet Ondansetron ODT 4 MG [Zofran Odt 4 mg] 1 ea PO QIDPRN PRN #7 tablet PRN Reason: n/v
[2024-03-14] MEDS ORDERED: Cipro 500 MG ONE (17:12)
[2024-03-14] MEDS: Cipro 500 MG PO STA (17:13)
[2024-03-14 17:15] VITALS: BP 124/68; PULSE 76; RESP 16
== END 2024-03-14 17:25 | disposition home or self-care (01) ==
LOC: ED 13:01
DX: K52.9 Noninfective gastroenteritis and colitis, unspecified (principal); N39.0 Urinary tract infection, site not specified; R11.2 Nausea with vomiting, unspecified; R10.84 Generalized abdominal pain; E78.5 Hyperlipidemia, unspecified; Z79.899 Other long term (current) drug therapy; Z72.0 Tobacco use
CPT/HCPCS: 36000; 36415; 74177; 80053; 81001; 83605; 83690; 85025; 87086; 96360; 96374; 96375; 99284; J1170; J2270; J2405; A9270-GY

== ENCOUNTER 2024-04-23 01:32 | Emergency (ER) | payer OTHER ==
--- NOTE | 2024-04-23 01:38 | ERPHSYRPT ---
- History of Present Illness Time Seen by Provider: 04/23/24 01:38 Source: patient, EMS, old records Physician History: This is a 48-year-old white female patient of nurse practitioner Monisha and who sees Dr. Samaniego in the pain clinic and presents to the emergency department transported by the plaster foreman service secondary to seizure breakthrough. The patient has a seizure disorder. She did not have any bowel incontinence but did have urinary incontinence. Patient did not take her evening dose of Keppra. She states that she had been consuming alcohol this evening. Patient does smoke tobacco cigarettes. It is unclear whether or not the patient hit her head. However, she does have a headache and neck pain. Patient has a history of lupus, COPD, hyperlipidemia, anxiety/panic disorder, bipolar disorder, PTSD, fibromyalgia and degenerative disc disease. Timing/Duration: today Severity: moderate Character of Deficits: none Deficits: no difficulties Baseline/Normal Cognition: alert 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 Current Cognition: alert 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 Baseline Gait: walks w/o assistance Associated Symptoms: seizures, headache, No confusion, No vision changes Allergies/Adverse Reactions: ca Allergy (Severe, Verified 04/23/24 02:01) Swelling pregabalin [From Lyrica] Allergy (Severe, Verified 04/23/24 02:01) amoxicillin Allergy (Intermediate, Verified 04/23/24 02:01) Rash Penicillins Allergy (Intermediate, Verified 04/23/24 02:01) Rash propoxyphene HCl [From Darvon] Allergy (Intermediate, Verified 04/23/24 02:01) PASS OUT Home Medications: Propranolol HCl [Inderal 20 MG] 40 mg PO BID 02/20/19 [History] levETIRAcetam [Levetiracetam] 1,250 mg PO BID 02/20/19 [History] Hydroxychloroquine Sulfate 200 mg PO DAILY 02/19/23 [History] Prazosin HCl 2 mg PO HS 02/19/23 [History] Ropinirole 2Mg [Requip 2Mg Tab] 2 mg PO HS 02/19/23 [History] lamoTRIgine [Lamictal] 150 mg PO HS 02/19/23 [History] Erenumab-Aooe [Aimovig Autoinjector] 175 mg SQ UD 05/23/23 [History] Trihexyphenidyl HCl 5 mg PO TID PRN PRN 05/23/23 [History] lamoTRIgine [Lamotrigine] 200 mg PO DAILY 06/11/23 [History] Buspirone HCl 15 mg PO BID 01/07/24 [History] Hx Tetanus, Diphtheria Vaccination/Date Given: Yes Hx Influenza Vaccination/Date Given: Yes Hx Pneumococcal Vaccination/Date Given: No Travel Risk - International Travel Have you traveled outside of the country in past 3 weeks: No - Emerging Infectious Disease Are you exhibiting symptoms associated with any current EIDs: Yes Symptoms: Abdominal Pain, Diarrhea, Vomitting - Review of Systems Constitutional: No Symptoms Eyes: No Symptoms Ears, Nose, & Throat: No Symptoms Respiratory: No Symptoms Cardiac: No Symptoms Abdominal/Gastrointestinal: No Symptoms Genitourinary Symptoms: Other (Urinary incontinence during seizure) Musculoskeletal: Neck Pain Skin: No Symptoms Neurological: Seizure Psychological: No Symptoms Endocrine: No Symptoms Hematologic/Lymphatic: No Symptoms Immunological/Allergic: No Symptoms All Other Systems: Reviewed and Negative - Past Medical History Pertinent Past Medical History: Yes Neurological History: Seizures ENT History: No Pertinent History Cardiac History: High Cholesterol Respiratory History: COPD Endocrine Medical History: Other Musculoskeletal History: Degenerative Disk Disease, Fibromyalgia GI Medical History: Esophageal Disorder, GERD History: No Pertinent History Psycho-Social History: Anxiety, Bipolar, Depression, Panic Disorder Female Reproductive Disorders: Abnormal Uterine Bleeding Other Medical History: Lupus, Neuropathy, DDD, bipolar 1 schizophrenia, PTSD - Past Surgical History Past Surgical History: Yes Neuro Surgical History: No Pertinent History Cardiac: No Pertinent History Respiratory: No Pertinent History Gastrointestinal: No Pertinent History Genitourinary: No Pertinent History Musculoskeletal: Other Female Surgical History: Section, Tubal Ligation, Other Other Surgical History: ABLATION - TUBAL LIGATION. BILATERAL WRIST SURGERY. PLATE AND TWO SCREWS IN THE BACK OF NECK. 12/26/20 Surgery to back. cadaver bone in neck - Female History Hx Last Menstrual Period: ABLASION - Social History Smoking Status: Current every day smoker How long have you smoked: 32 yrs Exposure to second hand smoke: Yes Drug Use: none Patient Lives Alone: No - Social Determinants of Health Will the patient participate in the screening: Yes Do you worry about a steady place to live?: No In the past 12 months,have you had to go without utilities?: No Transportation Issues: No Has anyone in your support network made you feel unsafe?: No Have you or anyone in your house had to go without enough: No - Nursing Vital Signs Nursing Vital Signs: Initial Vital Signs Temperature 97.9 F 04/23/24 01:35 Pulse Rate 86 04/23/24 01:35 Respiratory Rate 16 04/23/24 01:35 Blood Pressure 134/82 04/23/24 01:35 O2 Sat by Pulse Oximetry 100 04/23/24 01:35 Pain Scale Pain Intensity 8 - [place] Coma Scale Best Eye Response ([place]): (4) open spontaneously Best Verbal Response ([place]): (5) oriented Best Motor Response ([place]): (6) obeys commands [place] Total: 15 - Physical Exam General Appearance: no apparent distress, alert, anxiety Eye Exam: bilateral eye: normal inspection, PERRL, EOMI Ears, Nose, Throat Exam: normal ENT inspection, TMs normal, pharynx normal, moist mucous membranes Neck Exam: normal inspection, non-tender, supple, full range of motion Respiratory: normal breath sounds, lungs clear, airway intact, No chest tenderness, No respiratory distress Cardiovascular: regular rate/rhythm, normal heart sounds, normal peripheral pulses Gastrointestinal: soft, normal bowel sounds, No tenderness Pelvic Exam: not done Rectal Exam: not done Back Exam: normal inspection, normal range of motion, No CVA tenderness, No vertebral tenderness Extremity Exam: normal inspection, normal range of motion, pelvis stable 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, 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, cooperative rn heart Exam: normal hearing, normal speech, PERRL, tongue midline Coordination/Gait: normal finger to nose Skin Exam: normal color, warm, dry SpO2 Interpretation: normal O2 Delivery: Room Air - Course Nursing assessment & vital signs reviewed: Yes EKG Interpreted by Me: RATE (86), Sinus Rhythm, NORMAL AXIS, NORMAL QRS, Other (No acute ischemic changes on today's twelve-lead EKG. There is prolonged KS interval. This is new when compared to EKG that was performed on 12/23/2023. The patient's heart rate on this twelve-lead EKG was 90 and a normal sinus rhythm. Otherwise no acute changes.) Ordered Tests: Active Orders 24 hr Category Date Time Status Clean Catch Urine Specimen STAT Care 04/23/24 01:49 Active EKG-ER Only STAT Care 04/23/24 01:49 Active IV Insertion STAT Care 04/23/24 01:49 Active Pulse Oximetry (ED) STAT Care 04/23/24 01:54 Active CERVICAL SPINE WO CONTRAST [CT] Stat Exams 04/23/24 01:53 Completed HEAD WITHOUT CONTRAST [CT] Stat Exams 04/23/24 01:50 Completed ACETAMINOPHEN Stat Lab 04/23/24 01:53 Completed CBC W DIFF Stat Lab 04/23/24 01:53 Completed CMP Stat Lab 04/23/24 01:53 Completed ETHYL ALCOHOL Stat Lab 04/23/24 01:53 Completed POCT GLUCOSE Stat Lab 04/23/24 01:48 Completed SALICYLATE Stat Lab 04/23/24 01:53 Completed UA W/RFX UR CULTURE Stat Lab 04/23/24 02:02 Completed Urine Triage Profile Stat Lab 04/23/24 02:02 Completed Medication Summary Discontinued Medications Generic Name Dose Route Start Last Admin Trade Name Freq PRN Reason Stop Dose Admin Acetaminophen 650 mg 04/23/24 02:20 04/23/24 02:23 Acetaminophen 325 Mg Tablet PO 04/23/24 02:21 650 mg STAT ONE Administration Acetaminophen Confirm 04/23/24 02:23 Acetaminophen 325 Mg Tablet Administered 04/23/24 02:24 Dose 650 mg .ROUTE .STK-MED ONE Sodium Chloride 1,000 mls @ 999 mls/hr 04/23/24 01:49 04/23/24 02:00 Sodium Chloride 0.9% 1000 Ml IV 04/23/24 02:49 999 mls/hr .Q1H1M STA Administration Levetiracetam 500 mg/ Dextrose 105 mls @ 400 mls/hr 04/23/24 01:51 04/23/24 01:57 IV 04/23/24 02:06 400 mls/hr STAT ONE Administration Sodium Chloride Confirm 04/23/24 01:55 Sodium Chloride 100ml Mini-Bag Plus Administered 04/23/24 01:56 Dose 100 mls @ ud IV .STK-MED ONE Sodium Chloride Confirm 04/23/24 01:55 Sodium Chloride 0.9% 1000 Ml Administered 04/23/24 01:56 Dose 1,000 mls @ ud .ROUTE .STK-MED ONE Sodium Chloride Confirm 04/23/24 01:58 Sodium Chloride 0.9% Administered 04/23/24 01:59 Dose 100 mls @ ud .ROUTE .STK-MED ONE Levetiracetam Confirm 04/23/24 01:54 Levetiracetam 500 Mg/5 Ml Vial Administered 04/23/24 01:55 Dose 500 mg .ROUTE .STK-MED ONE Lorazepam 1 mg 04/23/24 01:49 04/23/24 01:56 Lorazepam 2 Mg/1 Ml 2 Mg Vial IV 04/23/24 01:50 1 mg STAT ONE Administration Lorazepam Confirm 04/23/24 01:55 Lorazepam 2 Mg/1 Ml 2 Mg Vial Administered 04/23/24 01:56 Dose 2 mg .ROUTE .STK-MED ONE Potassium Chloride 20 meq 04/23/24 04:06 Potassium Chloride Tab 10 Meq Tab PO 04/23/24 04:07 STAT ONE Lab/Rad Data: Laboratory Result Diagrams 04/23/24 01:53 04/23/24 01:53 Laboratory Results 04/23/24 04/23/24 04/23/24 Range/Units 02:02 02:02 01:53 WBC (3.98-10.04) x10^3/uL RBC (3.93-5.22) x10^6/uL Hgb (11.2-15.7) g/dL Hct (34.1-44.9) % MCV (79.4-94.8) fL MCH (25.6-32.2) pg MCHC (32.2-35.5) g/dL RDW (11.7-14.4) % Plt Count (182-369) x10^3/uL MPV (9.4-12.3) fL Gran % (34.0-71.1) % Immature Gran % (Auto) (0.001-0.429) % Nucleat RBC Rel Count (0.00-0.2) % Eos # (Auto) (0.04-0.36) x10^3/uL Immature Gran # (Auto) (0.001-0.031) x10^3u/L Absolute Lymphs (auto) (1.18-3.74) x10^3/uL Absolute Monos (auto) (0.24-0.86) x10^3/uL Absolute Nucleated RBC (0.00-0.012) x10^3u/L Lymphocytes % (19.3-51.7) % Monocytes % (4.7-12.5) % Eosinophils % (0.7-5.8) % Basophils % (0.1-1.2) % Absolute Granulocytes (1.56-6.13) x10^3/uL Basophils # (0.01-0.08) x10^3/uL Sodium 142 (135-145) mmol/L Potassium 3.2 L (3.5-5.1) mmol/L Chloride 109 H (98-107) mmol/L Carbon Dioxide 25 (22-30) mmol/L Anion Gap 11.7 (5-15) MEQ/L BUN 13 (7-17) mg/dL Creatinine 0.79 (0.52-1.04) mg/dL Estimated GFR 91.6 ML/MIN Glucose 91 (74-106) mg/dL POC Glucometer (74 to 106) mg/dL Calcium 9.3 (8.4-10.2) mg/dL Total Bilirubin 0.30 (0.2-1.3) mg/dL AST 22 (14-36) U/L ALT 13 (0-35) U/L Alkaline Phosphatase 59 (38-126) U/L Serum Total Protein 7.2 (6.3-8.2) g/dL Albumin 4.1 (3.5-5.0) g/dL Urine Color Yellow (Yellow) Urine Appearance Clear (Clear) Urine pH 6.5 (4.6-8.0) Ur Specific [place] <=1.005 (1.005-1.030) Urine Protein Negative (Negative) Urine Glucose (UA) Negative (Negative) mg/dL Urine Ketones Negative (Negative) Urine Blood Negative (Negative) Urine Nitrite Negative (Negative) Urine Bilirubin Negative (Negative) Urine Urobilinogen 0.2 (0.2) mg/dL Ur Leukocyte Esterase Negative (Negative) U Hyaline Cast (Auto) NONE SEEN (0-2) /LPF Urine Microscopic RBC 0-2 (0-5) /HPF Urine Microscopic WBC 0-2 (0-5) /HPF Ur Epithelial Cells None Seen (None Seen) /HPF Urine Bacteria None Seen (None Seen) /HPF Urine Culture Reflexed NO (NO) Salicylates < 1.0 L (2-20) mg/dL Urine Opiates Level NEGATIVE (NEGATIVE) Ur Methadone NEGATIVE (NEGATIVE) Acetaminophen < 10 L (10-30) ug/ml Urine Barbiturates NEGATIVE (NEGATIVE) Ur Phencyclidine (PCP) NEGATIVE (NEGATIVE) Urine Amphetamine NEGATIVE (NEGATIVE) U Benzodiazepine Level NEGATIVE (NEGATIVE) Urine Cocaine NEGATIVE (NEGATIVE) Urine Marijuana (THC) NEGATIVE (NEGATIVE) Ethyl Alcohol 77 H (0-10) mg/dL 04/23/24 04/23/24 Range/Units 01:53 01:48 WBC 7.2 (3.98-10.04) x10^3/uL RBC 3.89 L (3.93-5.22) x10^6/uL Hgb 12.5 (11.2-15.7) g/dL Hct 37.4 (34.1-44.9) % MCV 96.1 H (79.4-94.8) fL MCH 32.1 (25.6-32.2) pg MCHC 33.4 (32.2-35.5) g/dL RDW 12.8 (11.7-14.4) % Plt Count 336 (182-369) x10^3/uL MPV 10.1 (9.4-12.3) fL Gran % 52.4 (34.0-71.1) % Immature Gran % (Auto) 0.3 (0.001-0.429) % Nucleat RBC Rel Count 0.0 (0.00-0.2) % Eos # (Auto) 0.23 (0.04-0.36) x10^3/uL Immature Gran # (Auto) 0.02 (0.001-0.031) x10^3u/L Absolute Lymphs (auto) 2.50 (1.18-3.74) x10^3/uL Absolute Monos (auto) 0.60 (0.24-0.86) x10^3/uL Absolute Nucleated RBC 0.00 (0.00-0.012) x10^3u/L Lymphocytes % 34.9 (19.3-51.7) % Monocytes % 8.4 (4.7-12.5) % Eosinophils % 3.2 (0.7-5.8) % Basophils % 0.8 (0.1-1.2) % Absolute Granulocytes 3.75 (1.56-6.13) x10^3/uL Basophils # 0.06 (0.01-0.08) x10^3/uL Sodium (135-145) mmol/L Potassium (3.5-5.1) mmol/L Chloride (98-107) mmol/L Carbon Dioxide (22-30) mmol/L Anion Gap (5-15) MEQ/L BUN (7-17) mg/dL Creatinine (0.52-1.04) mg/dL Estimated GFR ML/MIN Glucose (74-106) mg/dL POC Glucometer 92 (74 to 106) mg/dL Calcium (8.4-10.2) mg/dL Total Bilirubin (0.2-1.3) mg/dL AST (14-36) U/L ALT (0-35) U/L Alkaline Phosphatase (38-126) U/L Serum Total Protein (6.3-8.2) g/dL Albumin (3.5-5.0) g/dL Urine Color (Yellow) Urine Appearance (Clear) Urine pH (4.6-8.0) Ur Specific [place] (1.005-1.030) Urine Protein (Negative) Urine Glucose (UA) (Negative) mg/dL Urine Ketones (Negative) Urine Blood (Negative) Urine Nitrite (Negative) Urine Bilirubin (Negative) Urine Urobilinogen (0.2) mg/dL Ur Leukocyte Esterase (Negative) U Hyaline Cast (Auto) (0-2) /LPF Urine Microscopic RBC (0-5) /HPF Urine Microscopic WBC (0-5) /HPF Ur Epithelial Cells (None Seen) /HPF Urine Bacteria (None Seen) /HPF Urine Culture Reflexed (NO) Salicylates (2-20) mg/dL Urine Opiates Level (NEGATIVE) Ur Methadone (NEGATIVE) Acetaminophen (10-30) ug/ml Urine Barbiturates (NEGATIVE) Ur Phencyclidine (PCP) (NEGATIVE) Urine Amphetamine (NEGATIVE) U Benzodiazepine Level (NEGATIVE) Urine Cocaine (NEGATIVE) Urine Marijuana (THC) (NEGATIVE) Ethyl Alcohol (0-10) mg/dL - Progress Progress: improved Progress Note: 04/23/24 01:59 My medical decision making and the assignment of moderate complexity to this patient's medical issue today is based on review of the patient's past medical history, review of the patient's medication list, review patient drug allergy list, history present illness and physical findings on examination. The workup in this patient includes placement of intravenous line, infusion of normal saline solution, infusion of 500 mg intravenous Keppra, infusion of 1 mg of intravenous Ativan, CBC, CMP, urinalysis, urine drug triage, salicylate level, acetaminophen level, alcohol level, twelve-lead EKG, CT scan of the head without contrast, CT scan of the cervical spine without contrast. Differential diagnosis includes but is not limited to acute intracranial abnormality, electrolyte abnormalities, seizure breakthrough, alcohol intoxication, illicit drug use 04/23/24 04:[address] scans without contrast were interpreted by the radiologist: The CT of the head without contrast shows no intracranial hematoma or extra- axial collection. There is no definite calvarium fracture. The CT scan of the cervical spine radiologist interpretation states no comparison films. No acute fracture or subluxation. The internal metallic plates and screws are intact. The disc bulges at C3-4, C5-6 show mild bilateral foraminal and spinal canal stenosis 04/23/24 04:07 I interpreted the patient's laboratory data results. The patient has a potassium of 3.2 which is low. There is no other acute, emergent medical findings based on the laboratory data results. Counseled pt/family regarding: lab results, diagnosis, rad results Medical Desision Making - Independent Historian Additional History obtained from: Building Custodian/EMT - Diagnostic Testing Diagnostic test were ordered, analyzed, and reviewed by me: Yes Radiological Interpretation: Reviewed by me, Teleradiologist Report - Departure Departure Disposition: Home Clinical Impression: Breakthrough seizure, Hypokalemia, Alcohol intoxication, Bulging of cervical intervertebral disc Condition: Stable Critical Care Time: No Referrals: FRANSISCA RAY NP [Primary Care Provider] - Follow up/PCP as directed Additional Instructions: There the soft cervical collar for comfort. Take your medications as prescribed. Call your primary care provider on 04/25/2024 to make arrangements for follow-up appointment in the next 1 to 2 days to discuss your medication dosage and the presence of the cervical disk bulges.
[2024-04-23] MEDS ORDERED: Keppra 500 MG/5 ML ONE (01:54)
[2024-04-23 01:55] LABS: Absolute Neutrophil Ct (ANC) 3.75 x10^3/uL (1.56-6.13); BASOPHIL % 0.8 % (0.1-1.2); Basophil (Absolute #) 0.06 x10^3/uL (0.01-0.08); Eosinophil % 3.2 % (0.7-5.8); Eosinophil (Absolute #) 0.23 x10^3/uL (0.04-0.36); Hematocrit 37.4 % (34.1-44.9); Hemoglobin 12.5 g/dL (11.2-15.7); IMMATURE GRAN # 0.02 x10^3u/L (0.001-0.031); IMMATURE GRAN % 0.3 % (0.001-0.429); Lymphocytes % 34.9 % (19.3-51.7); Mean Cell Volume 96.1 fL (79.4-94.8); Mean Corpuscular Hemoglobin 32.1 pg (25.6-32.2); Mean Corpuscular Hgb Concent. 33.4 g/dL (32.2-35.5); Mean Platelet Volume 10.1 fL (9.4-12.3); Monocytes % 8.4 % (4.7-12.5); Neutrophil % 52.4 % (34.0-71.1); Platelet Count 336 x10^3/uL (182-369); Red Blood Count 3.89 x10^6/uL (3.93-5.22); Red Cell Distribution Width 12.8 % (11.7-14.4); White Blood Count 7.2 x10^3/uL (3.98-10.04)
[2024-04-23] MEDS ORDERED: Sodium Chloride 0.9% 1000 ML 1,000 ML ONE (01:55)
[2024-04-23] MEDS ORDERED: Ativan 2 MG/1 ML VIAL ONE (01:55)
[2024-04-23] MEDS ORDERED: Sodium Chloride 100ML MINI-BAG PLUS 0 ML IV ONE (01:55)
[2024-04-23] MEDS: Ativan 2 MG/1 ML VIAL IV ONE (01:56)
[2024-04-23] MEDS: Keppra 500 MG/5 ML*** 500 MG in D5w 100ML Mini Bag 100 ML 100 ML IV ONE (01:57)
[2024-04-23] MEDS ORDERED: Sodium Chloride 0.9% 100 ML ONE (01:58)
[2024-04-23 02:00] VITALS: TEMP 97.9
[2024-04-23] MEDS: Sodium Chloride 0.9% 1000 ML 1,000 ML IV STA (02:00)
[2024-04-23 02:04] LABS: ACETAMINOPHEN < 10 ug/ml (10-30); ALBUMIN 4.1 g/dL (3.5-5.0); ALKALINE PHOSPHATASE 59 U/L (38-126); ANION GAP 11.7 MEQ/L (5-15); BLOOD UREA NITROGEN 13 mg/dL (7-17); CHLORIDE 109 mmol/L (98-107); Calcium 9.3 mg/dL (8.4-10.2); Carbon Dioxide 25 mmol/L (22-30); Creatinine 1 0.79 mg/dL (0.52-1.04); EST GLOMERULAR FILTRATION RATE 91.6 ML/MIN; ETHYL ALCOHOL 77 mg/dL (0-10); Glucose 91 mg/dL (74-106); Potassium 3.2 mmol/L (3.5-5.1); SALICYLATE < 1.0 mg/dL (2-20); SGOT/AST 22 U/L (14-36); SGPT/ALT 13 U/L (0-35); SODIUM 142 mmol/L (135-145); Total Protein 7.2 g/dL (6.3-8.2)
[2024-04-23] MEDS ORDERED: TYLENOL 325 MG ONE (02:23)
[2024-04-23] MEDS: TYLENOL 325 MG PO ONE (02:23)
[2024-04-23 02:52] LABS: Appearance Clear (Clear); Bacteria None Seen /HPF (None Seen); Bilirubin Negative (Negative); Blood Negative (Negative); Epithelial Cells None Seen /HPF (None Seen); Glucose, Urine Negative (Negative); Hyaline Casts NONE SEEN /LPF (0-2); Ketones Negative (Negative); Leukocyte Esterase Negative (Negative); Nitrite Negative (Negative); Ph 6.5 (4.6-8.0); Protein,Urine Dip Negative (Negative); RBC 0-2 /HPF (0-5); Specific Gravity <=1.005 (1.005-1.030); Urobilinogen 0.2 mg/dL (0.2); WBC 0-2 /HPF (0-5)
[2024-04-23 02:57] LABS: ADD URINE CULTURE? NO (NO)
--- NOTE | 2024-04-23 02:58 | XRAY ---
CLINICAL HISTORY: Seizure breakthrough COMPARISON: None. TECHNIQUE: An axial non-contrast CT scan of the brain was performed from the skull base to the high parietal region with multiple reformats.?one of the following dose reduction techniques were utilized for this exam: Automated exposure control, adjustment of the mA and/or kV according to patient size, use of iterative reconstruction? FINDINGS: No intracerebral hematomas or extra-axial collections. No definite calvarium fractures. The visualized brain parenchyma shows a normal appearance. No focal parenchymal abnormalities are demonstrated. Melchor-white matter differentiation is maintained. No midline shifts or deformity. Normal size and configuration of the cerebral ventricles. Normal CT appearance of the posterior fossa structures namely the cerebellar hemispheres, brainstem, and cerebellar peduncles. Scanned paranasal sinuses are clear. IMPRESSION: 1. No intracerebral hematomas or extra-axial collections. 2. No definite calvarium fractures. Electronically Signed by: Nicolasa Romano MD. (04/23/2024 02:55:20 EDT)
[2024-04-23 03:03] LABS: Amphetamine,Urine NEGATIVE (NEGATIVE); Barbiturate,Urine NEGATIVE (NEGATIVE); Benzodiazepine,Urine NEGATIVE (NEGATIVE); Cocaine,Urine NEGATIVE (NEGATIVE); Methadone,Urine NEGATIVE (NEGATIVE); Opiate,Urine NEGATIVE (NEGATIVE); PCP,Urine NEGATIVE (NEGATIVE); THC,Urine NEGATIVE (NEGATIVE)
--- NOTE | 2024-04-23 03:03 | XRAY ---
CLINICAL HISTORY: Pain post seizure COMPARISON: None. TECHNIQUE: Thin axial CT of the cervical spine was performed with sagittal and coronal reconstructions without contrast. ?One of the following dose reduction techniques was utilized for this exam: Automated exposure control, adjustment of the mA and/or kV according to patient size, use of iterative reconstruction.? FINDINGS: No acute fractures or sublaxtions. The vertebral bodies are normal in height. Internal metallic plate and screws fixation of C4 and C5 as well as C6 and C7 with cage fixation. No evidence of device loosening, break, or infections. Straightened cervical curve, possible muscle spasm. Mild cervical spondylotic changes show marginal osteophytic lippings of the cervical opposing vertebral end plates. C4-5, C5-6, and C6-7 bilateral neurocentral and facet arthropathies. C3-4 and C5-6 disc bulges inducing mild bilateral foraminal and spinal canal stenosis. No lytic or sclerotic bone lesion. No soft tissue lesions. IMPRESSION: 1. No acute fractures or sublaxtions. 2. Straightened cervical curve, possible muscle spasm. 3. Internal metallic plate and screws fixation of C4 and C5 as well as C6 and C7 with cage fixation. No evidence of device loosening, break, or infections. 4. Mild cervical spondylotic changes with C4-5, C5-6, and C6-7 bilateral neurocentral and facet arthropathies. 5. C3-4 and C5-6 disc bulges inducing mild bilateral foraminal and spinal canal stenosis. Electronically Signed by: Nicolasa Romano MD. (04/23/2024 02:57:56 EDT)
[2024-04-23] MEDS ORDERED: Klor Con ONE (04:08)
[2024-04-23] MEDS: Klor Con PO ONE (04:09)
[2024-04-23] MEDS ORDERED: PERCOCET TABLET 5/325MG ONE (04:17)
[2024-04-23] MEDS: PERCOCET TABLET 5/325MG PO STA ×2 (04:17)
[2024-04-23 04:25] VITALS: PULSE 88; RESP 25; O2SAT 96
[2024-04-23 04:26] VITALS: BP 120/79
== END 2024-04-23 04:43 | disposition home or self-care (01) ==
LOC: ED 01:32
DX: G40.909 Epilepsy, unspecified, not intractable, without status epilepticus (principal); E87.6 Hypokalemia; F10.129 Alcohol abuse with intoxication, unspecified; Y90.3 Blood alcohol level of 60-79 mg/100 ml; M50.31 Other cervical disc degeneration, high cervical region; M50.322 Other cervical disc degeneration at C5-C6 level; R51.9 Headache, unspecified; E78.5 Hyperlipidemia, unspecified; Z79.899 Other long term (current) drug therapy; Z72.0 Tobacco use
CPT/HCPCS: 36000; 36415; 70450; 72125; 80053; 80143; 80179; 80307; 81001; 82077; 82947; 84146; 85025; 93005; 94760; 96374; 96375; 99284; J1953; J2060; L0120; A9270-GY

== ENCOUNTER 2024-05-01 22:54 | Emergency (ER) | payer OTHER ==
--- NOTE | 2024-05-01 23:01 | ERPHSYRPT ---
- History of Present Illness Time Seen by Provider: 05/01/24 23:01 Source: patient, family Exam Limitations: no limitations Physician History: This is a right-handed 48-year-old white female patient of nurse practitioner Monisha and pain specialist Dr. Samaniego who fell prior to arrival onto her left outstretched arm. She now has pain in the dorsal aspect of her left hand and left wrist. Patient smokes cigarettes daily. She has a history of lupus, COPD, hyperlipidemia, anxiety, panic disorder, bipolar disorder, PTSD, fibromyalgia, and degenerative disc disease. Patient did not injure her head or neck. Occurred: just prior to arrival Method of Injury: fell Quality: aching, throbbing Severity of Pain-Max: moderate Severity of Pain-Current: moderate Extremities Pain Location: wrist: left, hand: left Modifying Factors: Improves With: movement Associated Symptoms: none Allergies/Adverse Reactions: ca Allergy (Severe, Verified 05/01/24 23:01) Swelling pregabalin [From Lyrica] Allergy (Severe, Verified 05/01/24 23:01) amoxicillin Allergy (Intermediate, Verified 05/01/24 23:01) Rash Penicillins Allergy (Intermediate, Verified 05/01/24 23:01) Rash propoxyphene HCl [From Darvon] Allergy (Intermediate, Verified 05/01/24 23:01) PASS OUT Home Medications: Propranolol HCl [Inderal 20 MG] 40 mg PO BID 02/20/19 [History] levETIRAcetam [Levetiracetam] 1,250 mg PO BID 02/20/19 [History] Hydroxychloroquine Sulfate 200 mg PO DAILY 02/19/23 [History] Prazosin HCl 2 mg PO HS 02/19/23 [History] Ropinirole 2Mg [Requip 2Mg Tab] 2 mg PO HS 02/19/23 [History] lamoTRIgine [Lamictal] 150 mg PO HS 02/19/23 [History] Erenumab-Aooe [Aimovig Autoinjector] 175 mg SQ UD 05/23/23 [History] Trihexyphenidyl HCl 5 mg PO TID PRN PRN 05/23/23 [History] lamoTRIgine [Lamotrigine] 200 mg PO DAILY 06/11/23 [History] Buspirone HCl 15 mg PO BID 01/07/24 [History] Hx Tetanus, Diphtheria Vaccination/Date Given: Yes Hx Influenza Vaccination/Date Given: Yes Hx Pneumococcal Vaccination/Date Given: No Travel Risk - International Travel Have you traveled outside of the country in past 3 weeks: No - Emerging Infectious Disease Are you exhibiting symptoms associated with any current EIDs: Yes Symptoms: Abdominal Pain, Diarrhea, Vomitting - Review of Systems Constitutional: No Symptoms Eyes: No Symptoms Ears, Nose, & Throat: No Symptoms Respiratory: No Symptoms Cardiac: No Symptoms Abdominal/Gastrointestinal: No Symptoms Genitourinary Symptoms: No Symptoms Musculoskeletal: Fall, Injury (Left hand and wrist) Skin: No Symptoms Neurological: No Symptoms Psychological: No Symptoms Endocrine: No Symptoms Hematologic/Lymphatic: No Symptoms Immunological/Allergic: No Symptoms All Other Systems: Reviewed and Negative - Past Medical History Pertinent Past Medical History: Yes Neurological History: Seizures ENT History: No Pertinent History Cardiac History: High Cholesterol Respiratory History: COPD Endocrine Medical History: Other Musculoskeletal History: Degenerative Disk Disease, Fibromyalgia GI Medical History: Esophageal Disorder, GERD History: No Pertinent History Psycho-Social History: Anxiety, Bipolar, Depression, Panic Disorder Female Reproductive Disorders: Abnormal Uterine Bleeding Other Medical History: Lupus, Neuropathy, DDD, bipolar 1 schizophrenia, PTSD - Past Surgical History Past Surgical History: Yes Neuro Surgical History: No Pertinent History Cardiac: No Pertinent History Respiratory: No Pertinent History Gastrointestinal: No Pertinent History Genitourinary: No Pertinent History Musculoskeletal: Other Female Surgical History: Section, Tubal Ligation, Other Other Surgical History: ABLATION - TUBAL LIGATION. BILATERAL WRIST SURGERY. PLATE AND TWO SCREWS IN THE BACK OF NECK. 12/26/20 Surgery to back. cadaver bone in neck - Female History Hx Last Menstrual Period: ABLASION - Social History Smoking Status: Current every day smoker How long have you smoked: 32 yrs Exposure to second hand smoke: Yes Drug Use: none Patient Lives Alone: No - Social Determinants of Health Will the patient participate in the screening: Yes Do you worry about a steady place to live?: No In the past 12 months,have you had to go without utilities?: No Transportation Issues: No Has anyone in your support network made you feel unsafe?: No Have you or anyone in your house had to go without enough: No - Nursing Vital Signs Nursing Vital Signs: Initial Vital Signs Temperature 97.5 F 05/01/24 23:02 Pulse Rate 71 07/14/24 23:02 Respiratory Rate 18 05/01/24 23:02 Blood Pressure 153/94 05/01/24 23:02 O2 Sat by Pulse Oximetry 98 05/01/24 23:02 Pain Scale Pain Intensity 8 - Physical Exam General Appearance: no apparent distress, alert, anxiety Eyes, Ears, Nose, Throat Exam: normal ENT inspection, moist mucous membranes Neck Exam: normal inspection, non-tender, supple, full range of motion Cardiovascular/Respiratory Exam: chest non-tender, no respiratory distress Abdominal Exam: non-tender Back Exam: normal inspection, normal range of motion, No CVA tenderness, No vertebral tenderness Shoulder Exam: normal inspection, non-tender, no evidence of injury, normal ROM Elbow/Forearm Exam: normal inspection, non-tender, no evidence of injury, normal ROM Wrist Exam: normal inspection, no evidence of injury, normal ROM, bone tenderness (Left wrist), soft tissue tenderness (Left wrist), No deformity Hand Exam: normal inspection, no evidence of injury, bone tenderness (Dorsal aspect left hand), soft tissue tenderness (Dorsal aspect left hand), No deformity Neuro/Tendon Exam: normal sensation, normal motor functions, normal tendon functions, responds to pain, no evidence tendon injury Mental Status Exam: alert, 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, cooperative Skin Exam: normal color, warm, dry SpO2 Interpretation: normal O2 Delivery: Room Air - Course Nursing assessment & vital signs reviewed: Yes Ordered Tests: Active Orders 24 hr Category Date Time Status HAND (MINIMUM 3 VIEWS) Stat Exams 05/01/24 23:11 Taken WRIST (MIN 3 VIEWS) Stat Exams 05/01/24 23:11 Taken - Progress Progress: improved, pain not gone completely Progress Note: 05/01/24 23:29 My medical decision making and the assignment of low complexity to this patient's medical issue today is based on review of the patient's past medical history, review of the patient's medication list, review the patient drug allergy list, history present illness and physical findings on examination. The workup in this patient includes x-ray of the patient's left hand and left wrist. Differential diagnosis includes but is not limited to sprain, fracture, dislocation, contusion 05/01/24 23:53 I interpreted the patient's preliminary x-ray of the left hand and left wrist report. Both films, based on my interpretation, do not show any acute fracture or dislocation. Counseled pt/family regarding: diagnosis, need for follow-up, rad results Medical Desision Making - Diagnostic Testing Diagnostic test were ordered, analyzed, and reviewed by me: Yes Radiological Interpretation: Interpreted by me - Departure Departure Disposition: Home Clinical Impression: Sprain of left hand, Sprain of left wrist Condition: Stable Critical Care Time: No Referrals: FRANSISCA RAY NP [Primary Care Provider] - Follow up/PCP as directed Additional Instructions: Ice pack to left hand and wrist or ice bath 3 times a day for the next 72 hours. Keep your appointment with your spinal surgeon scheduled for 05/03/2024. Call your primary care provider and your pain specialist tomorrow on 05/02/2024 to make arrangements for a follow-up appointment and to be seen in the next 3 to 5 days. If there are no contraindications, take Tylenol and ibuprofen for pain control.
[2024-05-01 23:10] VITALS: RESP 18; TEMP 97.5
[2024-05-02] MEDS ORDERED: DELTASONE 20 MG ONE (00:07)
[2024-05-02] MEDS ORDERED: PERCOCET TABLET 5/325MG ONE (00:07)
[2024-05-02] MEDS: PERCOCET TABLET 5/325MG PO STA (00:08)
[2024-05-02] MEDS: DELTASONE 20 MG PO ONE (00:09)
[2024-05-02 00:10] VITALS: BP 125/71; PULSE 73; O2SAT 96
--- NOTE | 2024-05-02 08:44 | XRAY ---
Indication: Pain following fall. Comparison: August 02, 2021 3 view left wrist demonstrates mild 1st metacarpal multangular degenerative changes and tiny distal radius bone island. No acute bony, articular, or soft tissue abnormalities.
--- NOTE | 2024-05-02 08:44 | XRAY ---
Indication: Pain following fall. Comparison: None 3 view left hand demonstrates mild 1st metacarpal multangular degenerative changes and tiny distal radius bone island.. No other bony, articular, or soft tissue abnormalities.
== END 2024-05-02 00:20 | disposition home or self-care (01) ==
LOC: ED 22:54
DX: S63.502A Unspecified sprain of left wrist, initial encounter (principal); S63.92XA Sprain of unspecified part of left wrist and hand, initial encounter; W19.XXXA Unspecified fall, initial encounter; E78.5 Hyperlipidemia, unspecified; Z79.899 Other long term (current) drug therapy; Z72.0 Tobacco use
CPT/HCPCS: 73110; 73130; 99283; A9270-GY

== ENCOUNTER 2024-07-11 15:14 | Emergency (ER) | payer OTHER ==
[2024-07-11 15:28] VITALS: TEMP 98.4
--- NOTE | 2024-07-11 15:47 | ERPHSYRPT ---
- History of Present Illness Historian: patient Exam Limitations: no limitations Patient Subjective Stated Complaint: pt here for pain to right back that radiates to front for a couple days now with loose stools, no vomiting Triage Nursing Assessment: pt walked in, resp easy,skin w/d/p. abd soft, moves all ext well, no edema noted Timing/Duration: day(s) (3) Activities at Onset: none Quality: cramping, sharpness, stabbing Abdominal Pain Onset Location: RLQ Pain Radiation: back Severity of Pain-Max: moderate Severity of Pain-Current: severe Modifying Factors: Improves With: movement Associated Symptoms: back Previous symptoms: same symptoms as today Hx Tetanus, Diphtheria Vaccination/Date Given: Yes Hx Influenza Vaccination/Date Given: Yes Hx Pneumococcal Vaccination/Date Given: No Immunizations Up to Date: Yes <JULIETH LEPE - Last Filed: 07/11/24 18:44> <MENDEZ DURAND - Last Filed: 07/11/24 20:11> - History of Present Illness Time Seen by Provider: 07/11/24 15:16 Physician History: Patient has history of chronic low back pain. Patient came to the ER for right- sided back pain radiating down to the right lower quadrant for last 3 days. Patient went to urgent care who told her to come to the ER. The pain is 8 out of 10 and it is sharp. Patient gets worse with the movement and the palpation of the area. No relieving factors. Patient also has some diarrhea. Denies any vomiting or fever or chills. (JULIETH LEPE) Allergies/Adverse Reactions: ca Allergy (Severe, Verified 07/11/24 15:23) Swelling pregabalin [From Lyrica] Allergy (Severe, Verified 07/11/24 15:23) amoxicillin Allergy (Intermediate, Verified 07/11/24 15:23) Rash Penicillins Allergy (Intermediate, Verified 07/11/24 15:23) Rash propoxyphene HCl [From Darvon] Allergy (Intermediate, Verified 07/11/24 15:23) PASS OUT Home Medications: levETIRAcetam [Levetiracetam] 1,000 mg PO BID 02/20/19 [History] Hydroxychloroquine Sulfate 200 mg PO DAILY 02/19/23 [History] Metoprolol Tartrate 25 mg [Lopressor 25MG Tab] 25 mg PO BID 07/11/24 [History] Travel Risk - International Travel Have you traveled outside of the country in past 3 weeks: No - Emerging Infectious Disease Are you exhibiting symptoms associated with any current EIDs: Yes Symptoms: Abdominal Pain <JULIETH LEPE - Last Filed: 07/11/24 18:44> - Review of Systems Constitutional: No Fever, No Chills Eyes: No Symptoms Ears, Nose, & Throat: No Symptoms Respiratory: No Cough, No Dyspnea Cardiac: No Chest Pain, No Edema, No Syncope Abdominal/Gastrointestinal: Abdominal Pain, Diarrhea, No Nausea, No Vomiting Genitourinary Symptoms: No Dysuria, No Incontinence, No Urinary Retention Musculoskeletal: Back Pain, No Neck Pain Skin: No Rash Neurological: No Dizziness, No Focal Weakness, No Sensory Changes Psychological: No Symptoms Endocrine: No Symptoms All Other Systems: Reviewed and Negative <JULIETH LEPE - Last Filed: 07/11/24 18:44> - Past Medical History Pertinent Past Medical History: Yes Neurological History: Seizures ENT History: No Pertinent History Cardiac History: High Cholesterol Respiratory History: COPD Endocrine Medical History: Other Musculoskeletal History: Degenerative Disk Disease, Fibromyalgia GI Medical History: Esophageal Disorder, GERD History: No Pertinent History Psycho-Social History: Anxiety, Bipolar, Depression, Panic Disorder Female Reproductive Disorders: Abnormal Uterine Bleeding Other Medical History: Lupus, Neuropathy, DDD, bipolar 1 schizophrenia, PTSD - Past Surgical History Past Surgical History: Yes Neuro Surgical History: No Pertinent History Cardiac: No Pertinent History Respiratory: No Pertinent History Gastrointestinal: No Pertinent History Genitourinary: No Pertinent History Musculoskeletal: Other Female Surgical History: Section, Tubal Ligation, Other Other Surgical History: ABLATION - TUBAL LIGATION. BILATERAL WRIST SURGERY. PLATE AND TWO SCREWS IN THE BACK OF NECK. 12/26/20 Surgery to back. cadaver bone in neck - Female History Hx Last Menstrual Period: post Hx Now: No - Social History Smoking Status: Current every day smoker How long have you smoked: 32 yrs Exposure to second hand smoke: Yes Drug Use: none Patient Lives Alone: No - Social Determinants of Health Will the patient participate in the screening: Yes Do you worry about a steady place to live?: No Do you have any problems with any of the following?: No known problems In the past 12 months,have you had to go without utilities?: No Transportation Issues: No Has anyone in your support network made you feel unsafe?: No Have you or anyone in your house had to go without enough: No <JULIETH LEPE - Last Filed: 07/11/24 18:44> - Physical Exam General Appearance: no apparent distress, alert Eye Exam: PERRL/EOMI, eyes nml inspection Ears, Nose, Throat Exam: normal ENT inspection, pharynx normal, moist mucous membranes Neck Exam: normal inspection, non-tender, supple, full range of motion Respiratory Exam: normal breath sounds, lungs clear, No respiratory distress Cardiovascular Exam: regular rate/rhythm, normal heart sounds Gastrointestinal/Abdomen Exam: soft, tenderness (Right lower quadrant tenderness without rebound or guarding.), No mass Back Exam: normal inspection, other (Right low back pain with painful injury of motion. No incontinence. No saddle anesthesia. No midline bony point tenderness. Mild muscle spasm.), No CVA tenderness, No vertebral tenderness Extremity Exam: normal inspection, normal range of motion, pelvis stable Neurologic Exam: alert, 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, cooperative, normal mood/affect, nml cerebellar function, sensation nml, No motor deficits Skin Exam: normal color, warm, dry SpO2 Interpretation: normal SpO2: 96 <JULIETH LEPE - Last Filed: 07/11/24 18:44> - Nursing Vital Signs Nursing Vital Signs: Initial Vital Signs Temperature 98.4 F 07/11/24 15:27 Pulse Rate 92 H 07/11/24 15:27 Respiratory Rate 18 07/11/24 15:27 Blood Pressure 158/127 07/11/24 15:27 O2 Sat by Pulse Oximetry 96 07/11/24 15:27 Pain Scale Pain Intensity [Right Abdomen] 5 Pain Intensity 4 - Course Nursing assessment & vital signs reviewed: Yes <JULIETH LEPE - Last Filed: 07/11/24 18:44> Ordered Tests: Active Orders 24 hr Category Date Time Status IV Insertion STAT Care 07/11/24 15:47 Active ABDOMEN AND PELVIS W CONTRAST [CT] Stat Exams 07/11/24 15:48 Taken CBC W DIFF Stat Lab 07/11/24 16:00 Completed CMP Stat Lab 07/11/24 16:00 Completed CULTURE,URINE Stat Lab 07/11/24 16:02 Received LIPASE Stat Lab 07/11/24 16:00 Completed Lactic Acid Stat Lab 07/11/24 16:01 Completed UA W/RFX UR CULTURE Stat Lab 07/11/24 16:02 Completed Medication Summary Discontinued Medications Generic Name Dose Route Start Last Admin Trade Name Manish PRN Reason Stop Dose Admin Fentanyl Citrate 25 mcg 07/11/24 18:00 07/11/24 18:18 Fentanyl Citrate 100 Mcg/2 Ml* Vial IV 07/11/24 18:01 25 mcg STAT ONE Administration Fentanyl Citrate Confirm 07/11/24 18:16 Fentanyl Citrate 100 Mcg/2 Ml* Vial Administered 07/11/24 18:17 Dose 100 mcg .ROUTE .STK-MED ONE Sodium Chloride 1,000 mls @ 999 mls/hr 07/11/24 15:47 07/11/24 17:05 Sodium Chloride 0.9% 1000 Ml IV 07/11/24 16:47 Infused .Q1H1M STA Infusion Sodium Chloride Confirm 07/11/24 16:02 Sodium Chloride 0.9% 1000 Ml Administered 07/11/24 16:03 Dose 1,000 mls @ ud .ROUTE .STK-MED ONE Morphine Sulfate 2 mg 07/11/24 15:47 07/11/24 16:06 Morphine Sulfate 2 Mg/Ml Inj IV 07/11/24 15:48 2 mg STAT ONE Administration Morphine Sulfate Confirm 07/11/24 16:02 Morphine Sulfate 2 Mg/Ml Inj Administered 07/11/24 16:03 Dose 2 mg .ROUTE .STK-MED ONE Ondansetron HCl 4 mg 07/11/24 15:47 07/11/24 16:04 Ondansetron Hcl 4 Mg/2 Ml Vial IV 07/11/24 15:48 4 mg STAT ONE Administration Ondansetron HCl Confirm 07/11/24 16:02 Ondansetron Hcl 4 Mg/2 Ml Vial Administered 07/11/24 16:03 Dose 4 mg .ROUTE .STK-MED ONE Lab/Rad Data: Laboratory Result Diagrams 07/11/24 16:00 07/11/24 16:00 Laboratory Results 07/11/24 07/11/24 07/11/24 Range/Units 16:02 16:01 16:00 WBC (3.98-10.04) x10^3/uL RBC (3.93-5.22) x10^6/uL Hgb (11.2-15.7) g/dL Hct (34.1-44.9) % MCV (79.4-94.8) fL MCH (25.6-32.2) pg MCHC (32.2-35.5) g/dL RDW (11.7-14.4) % Plt Count (182-369) x10^3/uL MPV (9.4-12.3) fL Gran % (34.0-71.1) % Immature Gran % (Auto) (0.001-0.429) % Nucleat RBC Rel Count (0.00-0.2) % Eos # (Auto) (0.04-0.36) x10^3/uL Immature Gran # (Auto) (0.001-0.031) x10^3u/L Absolute Lymphs (auto) (1.18-3.74) x10^3/uL Absolute Monos (auto) (0.24-0.86) x10^3/uL Absolute Nucleated RBC (0.00-0.012) x10^3u/L Lymphocytes % (19.3-51.7) % Monocytes % (4.7-12.5) % Eosinophils % (0.7-5.8) % Basophils % (0.1-1.2) % Absolute Granulocytes (1.56-6.13) x10^3/uL Basophils # (0.01-0.08) x10^3/uL Sodium 143 (135-145) mmol/L Potassium 4.2 (3.5-5.1) mmol/L Chloride 109 H (98-107) mmol/L Carbon Dioxide 26 (22-30) mmol/L Anion Gap 12.3 (5-15) MEQ/L BUN 18 H (7-17) mg/dL Creatinine 0.86 (0.52-1.04) mg/dL Estimated GFR 82.8 ML/MIN Glucose 99 (74-106) mg/dL Lactic Acid 1.1 (0.4-2.0) Calcium 9.4 (8.4-10.2) mg/dL Total Bilirubin 0.40 (0.2-1.3) mg/dL AST 27 (14-36) U/L ALT 18 (0-35) U/L Alkaline Phosphatase 51 (38-126) U/L Serum Total Protein 7.5 (6.3-8.2) g/dL Albumin 4.4 (3.5-5.0) g/dL Lipase 103 (23-300) U/L Urine Color Yellow (Yellow) Urine Appearance Clear (Clear) Urine pH 5.5 (4.6-8.0) Ur Specific Hubert 1.025 (1.005-1.030) Urine Protein Negative (Negative) Urine Glucose (UA) Negative (Negative) mg/dL Urine Ketones Negative (Negative) Urine Blood Negative (Negative) Urine Nitrite Negative (Negative) Urine Bilirubin Negative (Negative) Urine Urobilinogen 1.0 A (0.2) mg/dL Ur Leukocyte Esterase Trace A (Negative) U Hyaline Cast (Auto) NONE SEEN (0-2) /LPF Urine Microscopic RBC 3-5 (0-5) /HPF Urine Microscopic WBC 11-20 A (0-5) /HPF Ur Epithelial Cells Moderate A (None Seen) /HPF Urine Bacteria Few A (None Seen) /HPF Urine Culture Reflexed YES (NO) 07/11/24 Range/Units 16:00 WBC 9.7 (3.98-10.04) x10^3/uL RBC 4.17 (3.93-5.22) x10^6/uL Hgb 13.5 (11.2-15.7) g/dL Hct 39.9 (34.1-44.9) % MCV 95.7 H (79.4-94.8) fL MCH 32.4 H (25.6-32.2) pg MCHC 33.8 (32.2-35.5) g/dL RDW 12.4 (11.7-14.4) % Plt Count 305 (182-369) x10^3/uL MPV 9.9 (9.4-12.3) fL Gran % 63.1 (34.0-71.1) % Immature Gran % (Auto) 0.2 (0.001-0.429) % Nucleat RBC Rel Count 0.0 (0.00-0.2) % Eos # (Auto) 0.31 (0.04-0.36) x10^3/uL Immature Gran # (Auto) 0.02 (0.001-0.031) x10^3u/L Absolute Lymphs (auto) 2.48 (1.18-3.74) x10^3/uL Absolute Monos (auto) 0.68 (0.24-0.86) x10^3/uL Absolute Nucleated RBC 0.00 (0.00-0.012) x10^3u/L Lymphocytes % 25.5 (19.3-51.7) % Monocytes % 7.0 (4.7-12.5) % Eosinophils % 3.2 (0.7-5.8) % Basophils % 1.0 (0.1-1.2) % Absolute Granulocytes 6.13 (1.56-6.13) x10^3/uL Basophils # 0.10 H (0.01-0.08) x10^3/uL Sodium (135-145) mmol/L Potassium (3.5-5.1) mmol/L Chloride (98-107) mmol/L Carbon Dioxide (22-30) mmol/L Anion Gap (5-15) MEQ/L BUN (7-17) mg/dL Creatinine (0.52-1.04) mg/dL Estimated GFR ML/MIN Glucose (74-106) mg/dL Lactic Acid (0.4-2.0) Calcium (8.4-10.2) mg/dL Total Bilirubin (0.2-1.3) mg/dL AST (14-36) U/L ALT (0-35) U/L Alkaline Phosphatase (38-126) U/L Serum Total Protein (6.3-8.2) g/dL Albumin (3.5-5.0) g/dL Lipase (23-300) U/L Urine Color (Yellow) Urine Appearance (Clear) Urine pH (4.6-8.0) Ur Specific Hubert (1.005-1.030) Urine Protein (Negative) Urine Glucose (UA) (Negative) mg/dL Urine Ketones (Negative) Urine Blood (Negative) Urine Nitrite (Negative) Urine Bilirubin (Negative) Urine Urobilinogen (0.2) mg/dL Ur Leukocyte Esterase (Negative) U Hyaline Cast (Auto) (0-2) /LPF Urine Microscopic RBC (0-5) /HPF Urine Microscopic WBC (0-5) /HPF Ur Epithelial Cells (None Seen) /HPF Urine Bacteria (None Seen) /HPF Urine Culture Reflexed (NO) <JULIETH LEPE - Last Filed: 07/11/24 18:44> - Progress Counseled pt/family regarding: lab results, diagnosis, need for follow-up, rad results <MENDEZ DURAND - Last Filed: 07/11/24 20:11> - Progress Progress Note: 07/11/24 18:44 Care of the patient will be transferred to Dr. Durand at 7 PM (JULIETH LEPE) 07/11/24 20:09 I interpreted the patient's laboratory data results. The patient has a urinary tract infection and no other acute, emergent medical issue. The radiologist interpreted the CT scan of the abdomen pelvis and compared this to similar study dated 03/14/2024. There is a stable small hiatal hernia with minimal sigmoid diverticulosis, a small left renal cyst, mild L4-S1 degenerative disc disease. No new or acute findings. (MENDEZ DURAND) Medical Desision Making - Independent Historian Additional History obtained from: Family - Diagnostic Testing Diagnostic test were ordered, analyzed, and reviewed by me: Yes Radiological Interpretation: Reviewed by me, Teleradiologist Report - Risk of complications The pt has a mod risk of morbidity or mortality based on: Need for prescription drug management <MENDEZ DURAND - Last Filed: 07/11/24 20:11> <JULIETH LEPE - Last Filed: 07/11/24 18:44> - Departure Departure Disposition: Home Critical Care Time: No <MENDEZ DURAND - Last Filed: 07/11/24 20:11> - Departure Clinical Impression: UTI (urinary tract infection) Condition: Stable Referrals: FRANSISCA RAY NP [Primary Care Provider] - Follow up/PCP as directed Additional Instructions: Drink plenty fluids. Take your medications as prescribed. Call your primary care provider tomorrow, 07/12/2024, to make arranges for follow-up appointment and for outpatient pain management issues. Prescriptions: Ciprofloxacin [Cipro 500 MG] 500 mg PO BID #14 tablet
[2024-07-11] MEDS ORDERED: Zofran 4 MG/2 ML VIAL ONE (16:02)
[2024-07-11] MEDS ORDERED: Sodium Chloride 0.9% 1000 ML 1,000 ML ONE (16:02)
[2024-07-11] MEDS ORDERED: MORPHINE SULFATE 2 MG INJ ONE (16:02)
[2024-07-11] MEDS: Sodium Chloride 0.9% 1000 ML 1,000 ML IV STA (16:03)
[2024-07-11 16:04] LABS: Absolute Neutrophil Ct (ANC) 6.13 x10^3/uL (1.56-6.13); Eosinophil % 3.2 % (0.7-5.8); Eosinophil (Absolute #) 0.31 x10^3/uL (0.04-0.36); Hematocrit 39.9 % (34.1-44.9); Hemoglobin 13.5 g/dL (11.2-15.7); IMMATURE GRAN # 0.02 x10^3u/L (0.001-0.031); IMMATURE GRAN % 0.2 % (0.001-0.429); Lymphocyte (Absolute #) 2.48 x10^3/uL (1.18-3.74); Lymphocytes % 25.5 % (19.3-51.7); Mean Cell Volume 95.7 fL (79.4-94.8); Mean Corpuscular Hemoglobin 32.4 pg (25.6-32.2); Mean Corpuscular Hgb Concent. 33.8 g/dL (32.2-35.5); Mean Platelet Volume 9.9 fL (9.4-12.3); Monocyte (Absolute #) 0.68 x10^3/uL (0.24-0.86); Neutrophil % 63.1 % (34.0-71.1); Platelet Count 305 x10^3/uL (182-369); Red Blood Count 4.17 x10^6/uL (3.93-5.22); Red Cell Distribution Width 12.4 % (11.7-14.4); White Blood Count 9.7 x10^3/uL (3.98-10.04)
[2024-07-11] MEDS: Zofran 4 MG/2 ML VIAL IV ONE (16:04)
[2024-07-11] MEDS: MORPHINE SULFATE 2 MG INJ IV ONE (16:06)
[2024-07-11 16:13] LABS: Appearance Clear (Clear); Bacteria Few /HPF (None Seen); Bilirubin Negative (Negative); Blood Negative (Negative); Epithelial Cells Moderate /HPF (None Seen); Glucose, Urine Negative (Negative); Hyaline Casts NONE SEEN /LPF (0-2); Ketones Negative (Negative); Leukocyte Esterase Trace (Negative); Nitrite Negative (Negative); Ph 5.5 (4.6-8.0); Protein,Urine Dip Negative (Negative); Specific Gravity 1.025 (1.005-1.030)
[2024-07-11 16:15] LABS: ADD URINE CULTURE? YES (NO)
[2024-07-11 16:19] LABS: ALBUMIN 4.4 g/dL (3.5-5.0); ANION GAP 12.3 MEQ/L (5-15); BILIRUBIN,TOTAL 0.4 mg/dL (0.2-1.3); Calcium 9.4 mg/dL (8.4-10.2); Creatinine 1 0.86 mg/dL (0.52-1.04); EST GLOMERULAR FILTRATION RATE 82.8 ML/MIN; Potassium 4.2 mmol/L (3.5-5.1); Total Protein 7.5 g/dL (6.3-8.2)
[2024-07-11] MEDS ORDERED: SUBLIMAZE 100 MCG/2 ML ONE (18:16)
[2024-07-11] MEDS: SUBLIMAZE 100 MCG/2 ML IV ONE (18:18)
[2024-07-11] MEDS ORDERED: Levofloxacin 500 MG Tablet ONE (20:20)
[2024-07-11] MEDS: NORCO 5/325 MG PO ONE (20:21)
[2024-07-11] MEDS: Levofloxacin 500 MG Tablet PO ONE (20:21)
[2024-07-11] MEDS ORDERED: NORCO 5/325 MG ONE (20:21)
[2024-07-11 20:24] VITALS: PULSE 77; RESP 13; O2SAT 99
[2024-07-11 20:57] VITALS: BP 123/72
--- NOTE | 2024-07-12 08:30 | XRAY ---
Indication: Abdomen pain. Multiple contiguous axial images obtained through the abdomen and pelvis using 80 cc Isovue 370 contrast. Comparison: March 14, 2024 Lung bases demonstrates minimal dependent atelectasis. No infiltrate or effusion. Heart not enlarged. Stable small hiatal hernia. Noncontrasted stomach and bowel loops appear nonobstructed. Normal appendix. Minimal sigmoid diverticulosis without diverticulitis. Stable 2.4 cm left upper renal cyst and tiny splenic calcified granulomas. No free fluid/air. Remaining liver, gallbladder, pancreas, spleen, adrenal glands, kidneys, ureters, bladder, uterus, and aorta are unremarkable. No pathologic retroperitoneal lymphadenopathy. Osseous structures intact again with mild L4-S1 degenerative changes and mild levoscoliosis centered at L3. Impression: 1. Again chronic findings including hiatal hernia, sigmoid diverticulosis, left renal cyst, chronic bony findings, and old granulomatous disease. 2. Remaining CT abdomen/pelvis with contrast exam is negative.
== END 2024-07-11 20:56 | disposition home or self-care (01) ==
LOC: ED 15:14
DX: N39.0 Urinary tract infection, site not specified (principal); M54.50 Low back pain, unspecified; F17.200 Nicotine dependence, unspecified, uncomplicated; K44.9 Diaphragmatic hernia without obstruction or gangrene; K57.30 Diverticulosis of large intestine without perforation or abscess without bleeding; N28.1 Cyst of kidney, acquired
CPT/HCPCS: 36000; 36415; 74177; 80053; 81001; 83605; 83690; 85025; 87086; 96374; 96375; 99284; J2270; J2405; J3010; A9270-GY

== ENCOUNTER 2024-08-23 15:17 | Observation (INO) | payer OTHER ==
[2024-08-23] MEDS: Sodium Chloride 0.9% 1000 ML 1,000 ML IV STA ×2 (15:30→17:18)
--- NOTE | 2024-08-23 15:30 | ERPHSYRPT ---
- History of Present Illness Time Seen by Provider: 08/23/24 15:30 Source: patient, family Exam Limitations: no limitations Physician History: This is a 48-year-old white female patient of nurse practitioner Monisha who states she has been dizzy for 4 days. Approximately 4 days ago patient had a couple of seizures and ended up at [facility] emergency department. I reviewed those outpatient emergency department studies/workup results. She also states that she has had loss of balance. She denies chest pain. She denies shortness of breath. Patient does have a history of seizure disorder and is on Keppra. She also history of hyperlipidemia, COPD, degenerative disc disease, fibromyalgia, gastroesophageal reflux disease, anxiety, bipolar disorder/schizop hrenia, depression, panic disorder and PTSD. Patient denies ingestion of alcohol or illicit drugs. She states she is only taken her medication as prescribed. Patient does state that she has some pain in the back of her neck as well as bilateral flank area without history of trauma or injury. Severity: moderate Deficits: off balance (The last couple of days.) Baseline/Normal Cognition: alert 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 Current Cognition: alert 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 Baseline Gait: walks w/o assistance Associated Symptoms: weakness, trouble walking (Remittent secondary to the weakness), No confusion, No numbness/tingling in legs/feet, No vision changes, No chest pain, No headache Allergies/Adverse Reactions: ca Allergy (Severe, Verified 08/23/24 15:35) Swelling pregabalin [From Lyrica] Allergy (Severe, Verified 08/23/24 15:35) amoxicillin Allergy (Intermediate, Verified 08/23/24 15:35) Rash Penicillins Allergy (Intermediate, Verified 08/23/24 15:35) Rash propoxyphene HCl [From Darvon] Allergy (Intermediate, Verified 08/23/24 15:35) PASS OUT Home Medications: levETIRAcetam [Levetiracetam] 1,000 mg PO BID 02/20/19 [History] Hydroxychloroquine Sulfate 200 mg PO DAILY 02/19/23 [History] Metoprolol Tartrate 25 mg [Lopressor 25MG Tab] 25 mg PO BID 07/11/24 [History] Hx Tetanus, Diphtheria Vaccination/Date Given: Yes Hx Influenza Vaccination/Date Given: Yes Hx Pneumococcal Vaccination/Date Given: No Travel Risk - International Travel Have you traveled outside of the country in past 3 weeks: No - Emerging Infectious Disease Are you exhibiting symptoms associated with any current EIDs: Yes Symptoms: Abdominal Pain - Review of Systems Constitutional: Weakness Eyes: No Symptoms Ears, Nose, & Throat: No Symptoms Respiratory: No Symptoms Cardiac: No Symptoms Abdominal/Gastrointestinal: No Symptoms Genitourinary Symptoms: No Symptoms Musculoskeletal: Arthralgias, Myalgias Skin: No Symptoms Neurological: Dizziness, Gait Changes (Secondary to weakness) Psychological: No Symptoms Endocrine: No Symptoms Hematologic/Lymphatic: No Symptoms Immunological/Allergic: No Symptoms All Other Systems: Reviewed and Negative - Past Medical History Pertinent Past Medical History: Yes Neurological History: Seizures ENT History: No Pertinent History Cardiac History: High Cholesterol Respiratory History: COPD Endocrine Medical History: Other Musculoskeletal History: Degenerative Disk Disease, Fibromyalgia GI Medical History: Esophageal Disorder, GERD History: No Pertinent History Psycho-Social History: Anxiety, Bipolar, Depression, Panic Disorder Female Reproductive Disorders: Abnormal Uterine Bleeding Other Medical History: Lupus, Neuropathy, DDD, bipolar 1 schizophrenia, PTSD - Past Surgical History Past Surgical History: Yes Neuro Surgical History: No Pertinent History Cardiac: No Pertinent History Respiratory: No Pertinent History Gastrointestinal: No Pertinent History Genitourinary: No Pertinent History Musculoskeletal: Other Female Surgical History: Section, Tubal Ligation, Other Other Surgical History: ABLATION - TUBAL LIGATION. BILATERAL WRIST SURGERY. PLATE AND TWO SCREWS IN THE BACK OF NECK. 12/26/20 Surgery to back. cadaver bone in neck - Female History Hx Last Menstrual Period: post - Social History Smoking Status: Current every day smoker How long have you smoked: 32 yrs Exposure to second hand smoke: Yes Drug Use: none Patient Lives Alone: No - Social Determinants of Health Will the patient participate in the screening: Yes Do you worry about a steady place to live?: No In the past 12 months,have you had to go without utilities?: No Transportation Issues: No Has anyone in your support network made you feel unsafe?: No Have you or anyone in your house had to go without enough: No - Nursing Vital Signs Nursing Vital Signs: Initial Vital Signs Pulse Rate 104 H 08/23/24 15:37 Respiratory Rate 14 08/23/24 15:37 Blood Pressure 49/31 08/23/24 15:37 O2 Sat by Pulse Oximetry 97 08/23/24 15:37 Pain Scale Pain Intensity 4 - Taylor Coma Scale Best Eye Response ([place]): (4) open spontaneously Best Verbal Response ([place]): (5) oriented Best Motor Response ([place]): (6) obeys commands [place] Total: 15 - Physical Exam General Appearance: no apparent distress, alert, anxiety, obese Eye Exam: bilateral eye: normal inspection, PERRL, EOMI Ears, Nose, Throat Exam: dry mucous membranes Neck Exam: normal inspection, non-tender, supple, full range of motion Respiratory: normal breath sounds, lungs clear, airway intact, No chest tenderness, No respiratory distress Cardiovascular: tachycardia (Mildly tachycardic) Gastrointestinal: soft, normal bowel sounds, No tenderness, No guarding Pelvic Exam: not done Rectal Exam: not done Back Exam: normal inspection, normal range of motion, vertebral tenderness, No CVA tenderness Extremity Exam: normal inspection, normal range of motion, pelvis stable 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, 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, 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 Exam: normal hearing, normal speech, PERRL, tongue midline Skin Exam: normal color, warm, dry SpO2 Interpretation: normal O2 Delivery: Room Air - Course Nursing assessment & vital signs reviewed: Yes Ordered Tests: Active Orders 24 hr Category Date Time Status Biodiesel Process Control Technician STAT Care 08/23/24 16:09 Active Clean Catch Urine Specimen STAT Care 08/23/24 16:08 Active EKG-ER Only STAT Care 08/23/24 16:08 Active IV Insertion STAT Care 08/23/24 16:08 Active IV Insertion-2nd Peripheral STAT Care 08/23/24 16:11 Active Pulse Oximetry (ED) STAT Care 08/23/24 16:08 Active HEAD WITHOUT CONTRAST [CT] Stat Exams 08/23/24 16:09 Completed BMP Stat Lab 08/23/24 18:50 Completed CBC W DIFF Stat Lab 08/23/24 14:00 Completed CK-Creatinine Phosphokinase Stat Lab 08/23/24 Completed CMP Stat Lab 08/23/24 16:00 Completed CULTURE,URINE Stat Lab 08/23/24 16:14 Received ETHYL ALCOHOL Stat Lab 08/23/24 16:00 Completed UA W/RFX UR CULTURE Stat Lab 08/23/24 16:14 Completed Urine Triage Profile Stat Lab 08/23/24 16:14 Completed Medication Summary Generic Name Dose Route Start Last Admin Trade Name Freq PRN Reason Stop Dose Admin Sodium Chloride 500 mls @ 500 mls/hr 08/23/24 20:37 08/23/24 20:42 Sodium Chloride 0.9% 500 Ml IV 08/23/24 21:36 500 mls/hr .Q1H ONE Administration Discontinued Medications Generic Name Dose Route Start Last Admin Trade Name Manish PRN Reason Stop Dose Admin Acetaminophen 650 mg 08/23/24 17:32 08/23/24 17:40 Acetaminophen 325 Mg Tablet PO 08/23/24 17:33 650 mg STAT STA Administration Acetaminophen Confirm 08/23/24 17:38 Acetaminophen 325 Mg Tablet Administered 08/23/24 17:39 Dose 650 mg .ROUTE .STK-MED ONE Sodium Chloride Confirm 08/23/24 15:45 Sodium Chloride 0.9% 1000 Ml Administered 08/23/24 15:46 Dose 1,000 mls @ ud .ROUTE .STK-MED ONE Sodium Chloride 1,000 mls @ 999 mls/hr 08/23/24 16:44 08/23/24 16:56 Sodium Chloride 0.9% 1000 Ml IV 08/23/24 17:44 Infused .Q1H1M STA Infusion Sodium Chloride 1,000 mls @ 999 mls/hr 08/23/24 17:17 08/23/24 19:41 Sodium Chloride 0.9% 1000 Ml IV 08/23/24 18:17 Infused .Q1H1M STA Infusion Sodium Chloride Confirm 08/23/24 17:17 Sodium Chloride 0.9% 1000 Ml Administered 08/23/24 17:18 Dose 1,000 mls @ ud .ROUTE .STK-MED ONE Sodium Chloride Confirm 08/23/24 20:42 Sodium Chloride 0.9% 500 Ml Administered 08/23/24 20:43 Dose 500 mls @ ud IV .STK-MED ONE Ondansetron HCl 4 mg 08/23/24 19:11 08/23/24 19:40 Ondansetron Hcl 4 Mg/2 Ml Vial IV 08/23/24 19:12 4 mg STAT ONE Administration Ondansetron HCl Confirm 08/23/24 19:39 Ondansetron Hcl 4 Mg/2 Ml Vial Administered 08/23/24 19:40 Dose 4 mg .ROUTE .STK-MED ONE Pantoprazole Sodium 40 mg 08/23/24 19:11 08/23/24 19:40 Pantoprazole 40 Mg Vial IV 08/23/24 19:12 40 mg STAT ONE Administration Pantoprazole Sodium Confirm 08/23/24 19:39 Pantoprazole 40 Mg Vial Administered 08/23/24 19:40 Dose 40 mg IV .[facility]-MED ONE Lab/Rad Data: Laboratory Result Diagrams 08/23/24 14:00 08/23/24 18:50 Laboratory Results 08/23/24 08/23/24 08/23/24 Range/Units Unknown 18:50 16:14 WBC (3.98-10.04) x10^3/uL RBC (3.93-5.22) x10^6/uL Hgb (11.2-15.7) g/dL Hct (34.1-44.9) % MCV (79.4-94.8) fL MCH (25.6-32.2) pg MCHC (32.2-35.5) g/dL RDW (11.7-14.4) % Plt Count (182-369) x10^3/uL MPV (9.4-12.3) fL Gran % (34.0-71.1) % Immature Gran % (Auto) (0.001-0.429) % Nucleat RBC Rel Count (0.00-0.2) % Eos # (Auto) (0.04-0.36) x10^3/uL Immature Gran # (Auto) (0.001-0.031) x10^3u/L Absolute Lymphs (auto) (1.18-3.74) x10^3/uL Absolute Monos (auto) (0.24-0.86) x10^3/uL Absolute Nucleated RBC (0.00-0.012) x10^3u/L Lymphocytes % (19.3-51.7) % Monocytes % (4.7-12.5) % Eosinophils % (0.7-5.8) % Basophils % (0.1-1.2) % Absolute Granulocytes (1.56-6.13) x10^3/uL Basophils # (0.01-0.08) x10^3/uL Sodium 138 (135-145) mmol/L Potassium 3.8 (3.5-5.1) mmol/L Chloride 109 H (98-107) mmol/L Carbon Dioxide 18 L (22-30) mmol/L Anion Gap 15.1 H (5-15) MEQ/L BUN 22 H (7-17) mg/dL Creatinine 2.15 H (0.52-1.04) mg/dL Estimated GFR 27.6 ML/MIN Glucose 120 H (74-106) mg/dL Calcium 8.9 (8.4-10.2) mg/dL Total Bilirubin (0.2-1.3) mg/dL AST (14-36) U/L ALT (0-35) U/L Alkaline Phosphatase (38-126) U/L Creatine Kinase 70 (30-135) U/L Serum Total Protein (6.3-8.2) g/dL Albumin (3.5-5.0) g/dL Urine Color (Yellow) Urine Appearance (Clear) Urine pH (4.6-8.0) Ur Specific [place] (1.005-1.030) Urine Protein (Negative) Urine Glucose (UA) (Negative) mg/dL Urine Ketones (Negative) Urine Blood (Negative) Urine Nitrite (Negative) Urine Bilirubin (Negative) Urine Urobilinogen (0.2) mg/dL Ur Leukocyte Esterase (Negative) U Hyaline Cast (Auto) (0-2) /LPF Urine Microscopic RBC (0-5) /HPF Urine Microscopic WBC (0-5) /HPF Ur Epithelial Cells (None Seen) /HPF Urine Bacteria (None Seen) /HPF Urine Culture Reflexed (NO) Urine Opiates Level NEGATIVE (NEGATIVE) Ur Methadone NEGATIVE (NEGATIVE) Urine Barbiturates NEGATIVE (NEGATIVE) Ur Phencyclidine (PCP) NEGATIVE (NEGATIVE) Urine Amphetamine NEGATIVE (NEGATIVE) U Benzodiazepine Level NEGATIVE (NEGATIVE) Urine Cocaine NEGATIVE (NEGATIVE) Urine Marijuana (THC) NEGATIVE (NEGATIVE) Ethyl Alcohol (0-10) mg/dL 08/23/24 08/23/24 08/23/24 Range/Units 16:14 16:00 14:00 WBC 9.6 (3.98-10.04) x10^3/uL RBC 4.44 (3.93-5.22) x10^6/uL Hgb 14.2 (11.2-15.7) g/dL Hct 41.6 (34.1-44.9) % MCV 93.7 (79.4-94.8) fL MCH 32.0 (25.6-32.2) pg MCHC 34.1 (32.2-35.5) g/dL RDW 11.9 (11.7-14.4) % Plt Count 344 (182-369) x10^3/uL MPV 9.8 (9.4-12.3) fL Gran % 69.6 (34.0-71.1) % Immature Gran % (Auto) 0.3 (0.001-0.429) % Nucleat RBC Rel Count 0.0 (0.00-0.2) % Eos # (Auto) 0.15 (0.04-0.36) x10^3/uL Immature Gran # (Auto) 0.03 (0.001-0.031) x10^3u/L Absolute Lymphs (auto) 2.00 (1.18-3.74) x10^3/uL Absolute Monos (auto) 0.66 (0.24-0.86) x10^3/uL Absolute Nucleated RBC 0.00 (0.00-0.012) x10^3u/L Lymphocytes % 20.9 (19.3-51.7) % Monocytes % 6.9 (4.7-12.5) % Eosinophils % 1.6 (0.7-5.8) % Basophils % 0.7 (0.1-1.2) % Absolute Granulocytes 6.65 H (1.56-6.13) x10^3/uL Basophils # 0.07 (0.01-0.08) x10^3/uL Sodium 138 (135-145) mmol/L Potassium 3.5 (3.5-5.1) mmol/L Chloride 104 (98-107) mmol/L Carbon Dioxide 20 L (22-30) mmol/L Anion Gap 17.3 H (5-15) MEQ/L BUN 20 H (7-17) mg/dL Creatinine 2.37 H (0.52-1.04) mg/dL Estimated GFR 24.5 ML/MIN Glucose 133 H (74-106) mg/dL Calcium 9.7 (8.4-10.2) mg/dL Total Bilirubin 0.60 (0.2-1.3) mg/dL AST 23 (14-36) U/L ALT 21 (0-35) U/L Alkaline Phosphatase 80 (38-126) U/L Creatine Kinase (30-135) U/L Serum Total Protein 7.9 (6.3-8.2) g/dL Albumin 4.6 (3.5-5.0) g/dL Urine Color Dark Yellow A (Yellow) Urine Appearance Cloudy A (Clear) Urine pH 5.5 (4.6-8.0) Ur Specific [place] 1.015 (1.005-1.030) Urine Protein 100 A (Negative) Urine Glucose (UA) Negative (Negative) mg/dL Urine Ketones Trace A (Negative) Urine Blood Negative (Negative) Urine Nitrite Negative (Negative) Urine Bilirubin Negative (Negative) Urine Urobilinogen 1.0 A (0.2) mg/dL Ur Leukocyte Esterase Small A (Negative) U Hyaline Cast (Auto) >50 A (0-2) /LPF Urine Microscopic RBC 0-2 (0-5) /HPF Urine Microscopic WBC 6-10 A (0-5) /HPF Ur Epithelial Cells Few (None Seen) /HPF Urine Bacteria None Seen (None Seen) /HPF Urine Culture Reflexed YES (NO) Urine Opiates Level (NEGATIVE) Ur Methadone (NEGATIVE) Urine Barbiturates (NEGATIVE) Ur Phencyclidine (PCP) (NEGATIVE) Urine Amphetamine (NEGATIVE) U Benzodiazepine Level (NEGATIVE) Urine Cocaine (NEGATIVE) Urine Marijuana (THC) (NEGATIVE) Ethyl Alcohol < 10 (0-10) mg/dL - Progress Progress: improved Progress Note: 08/23/24 18:30 My medical decision making and the assignment of moderate to high complexity of this patient's medical issue today is based on review of the patient's past medical history, review of the patient's medication list, reviewed patient drug allergy list, review of the emergency department chart from other facility ([facility] emergency department), history present illness and physical findings on examination. The workup in this patient includes placement of intravenous line, infusion of crystalloid solution, CBC, CMP, troponin level, twelve-lead EKG, CT scan of the head, urinalysis, blood cultures Differential diagnosis includes but is not limited to acute intracranial abnormality, arrhythmia, dehydration, urinary tract infection, electrolyte abnormalities 08/23/24 21:00 Interpreted the patient's laboratory data results. Based on the laboratory data results, the patient has a urinary tract infection and is dehydrated and has acute renal insufficiency. The CT scan of the head was interpreted by the radiologist and I reviewed the impression. The impression states no acute intracranial abnormality. 08/23/24 21:03 I spoke with the telehospitalist, Dr. Childs. I reviewed the patient history, presenting complaint, physical findings, workup and the results. He agrees to place this patient in observation. Counseled pt/family regarding: lab results, diagnosis, rad results Medical Desision Making - Independent Historian Additional History obtained from: Spouse - Diagnostic Testing Diagnostic test were ordered, analyzed, and reviewed by me: Yes Radiological Interpretation: Reviewed by me, Teleradiologist Report - Risk of complications The pt has a high risk of morbidity or mortality based on: Decision regarding hospitilization or escalation of hosp level of care - Departure Departure Disposition: Observation Clinical Impression: Dehydration, Acute renal insufficiency, Urinary tract infection, Dizziness, Hypotension Condition: Fair Critical Care Time: Yes Critical Care Time(excluding separately billable procedures): Critical 30-74 mins (45 minutes) Referrals: FRANSISCA RAY, [facility] [Primary Care Provider] - Follow up/PCP as directed
[2024-08-23] MEDS ORDERED: Sodium Chloride 0.9% 1000 ML 1,000 ML ONE ×2 (15:45→17:17)
[2024-08-23 16:13] LABS: Absolute Neutrophil Ct (ANC) 6.65 x10^3/uL (1.56-6.13); BASOPHIL % 0.7 % (0.1-1.2); Basophil (Absolute #) 0.07 x10^3/uL (0.01-0.08); Eosinophil % 1.6 % (0.7-5.8); Eosinophil (Absolute #) 0.15 x10^3/uL (0.04-0.36); Hematocrit 41.6 % (34.1-44.9); Hemoglobin 14.2 g/dL (11.2-15.7); IMMATURE GRAN # 0.03 x10^3u/L (0.001-0.031); IMMATURE GRAN % 0.3 % (0.001-0.429); Lymphocytes % 20.9 % (19.3-51.7); Mean Cell Volume 93.7 fL (79.4-94.8); Mean Corpuscular Hgb Concent. 34.1 g/dL (32.2-35.5); Mean Platelet Volume 9.8 fL (9.4-12.3); Monocyte (Absolute #) 0.66 x10^3/uL (0.24-0.86); Monocytes % 6.9 % (4.7-12.5); Neutrophil % 69.6 % (34.0-71.1); Platelet Count 344 x10^3/uL (182-369); Red Blood Count 4.44 x10^6/uL (3.93-5.22); Red Cell Distribution Width 11.9 % (11.7-14.4); White Blood Count 9.6 x10^3/uL (3.98-10.04)
[2024-08-23 16:23] LABS: ALBUMIN 4.6 g/dL (3.5-5.0); ALKALINE PHOSPHATASE 80 U/L (38-126); ANION GAP 17.3 MEQ/L (5-15); BLOOD UREA NITROGEN 20 mg/dL (7-17); CHLORIDE 104 mmol/L (98-107); Calcium 9.7 mg/dL (8.4-10.2); Carbon Dioxide 20 mmol/L (22-30); Creatinine 1 2.37 mg/dL (0.52-1.04); EST GLOMERULAR FILTRATION RATE 24.5 ML/MIN; ETHYL ALCOHOL < 10 mg/dL (0-10); Glucose 133 mg/dL (74-106); Potassium 3.5 mmol/L (3.5-5.1); SGOT/AST 23 U/L (14-36); SGPT/ALT 21 U/L (0-35); SODIUM 138 mmol/L (135-145); Total Protein 7.9 g/dL (6.3-8.2)
[2024-08-23 16:50] LABS: Appearance Cloudy (Clear); Bacteria None Seen /HPF (None Seen); Bilirubin Negative (Negative); Blood Negative (Negative); Epithelial Cells Few /HPF (None Seen); Glucose, Urine Negative (Negative); Hyaline Casts >50 /LPF (0-2); Ketones Trace (Negative); Leukocyte Esterase Small (Negative); Nitrite Negative (Negative); Ph 5.5 (4.6-8.0); Protein,Urine Dip 100 (Negative); RBC 0-2 /HPF (0-5); Specific Gravity 1.015 (1.005-1.030)
[2024-08-23 17:00] LABS: Amphetamine,Urine NEGATIVE (NEGATIVE); Barbiturate,Urine NEGATIVE (NEGATIVE); Benzodiazepine,Urine NEGATIVE (NEGATIVE); Cocaine,Urine NEGATIVE (NEGATIVE); Methadone,Urine NEGATIVE (NEGATIVE); Opiate,Urine NEGATIVE (NEGATIVE); PCP,Urine NEGATIVE (NEGATIVE); THC,Urine NEGATIVE (NEGATIVE)
--- NOTE | 2024-08-23 17:03 | XRAY ---
Indication: Dizziness. Multiple contiguous axial images obtained through the head without contrast. Comparison: April 23, 2024 Normal appearing brain parenchyma, ventricles, bony calvarium. Visualized paranasal sinuses and mastoid air cells are clear. Impression: Continued normal CT head without contrast exam.
[2024-08-23] MEDS ORDERED: TYLENOL 325 MG ONE (17:38)
[2024-08-23] MEDS: TYLENOL 325 MG PO STA (17:40)
[2024-08-23 19:09] LABS: ANION GAP 15.1 MEQ/L (5-15); Calcium 8.9 mg/dL (8.4-10.2); Creatinine 1 2.15 mg/dL (0.52-1.04); EST GLOMERULAR FILTRATION RATE 27.6 ML/MIN; Potassium 3.8 mmol/L (3.5-5.1)
[2024-08-23] MEDS ORDERED: Zofran 4 MG/2 ML VIAL ONE (19:39)
[2024-08-23] MEDS ORDERED: PROTONIX 40 MG IV IV ONE (19:39)
[2024-08-23] MEDS: PROTONIX 40 MG IV IV ONE (19:40)
[2024-08-23] MEDS: Zofran 4 MG/2 ML VIAL IV ONE (19:40)
[2024-08-23] MEDS ORDERED: Sodium Chloride 0.9% 500 ML 500 ML IV ONE (20:42)
[2024-08-23] MEDS: Sodium Chloride 0.9% 500 ML 500 ML IV ONE (20:42)
[2024-08-23] MEDS ORDERED: ROCEPHIN 1 GM / 100 ML NaCl 1 GM/100 ML IVPB IV ONE (21:04)
[2024-08-23] MEDS: ROCEPHIN 1 GM / 100 ML NaCl 1 GM/100 ML IVPB IV ONE (21:06)
[2024-08-23] MEDS ORDERED: Zofran 4 MG/2 ML VIAL IV PRN (21:59)
[2024-08-23] MEDS: Sodium Chloride 0.9% 1000 ML 1,000 ML IV SCH (22:41)
[2024-08-23] MEDS: KEPPRA PO SCH (22:47)
[2024-08-23] MEDS: Zestril 10 MG PO SCH (22:48)
--- NOTE | 2024-08-23 22:55 | PCM.HP ---
History of Present Illness - Chief Complaint Chief Complaint: lightheadedness Date: 08/23/24 History of Present Illness: is a 48 year old female with h/o seizures, fibromyalgia, here with lightheadedness. Patient was [facility] after she had a seizure. She was given her Keppra and discharged home Thursday. At that time, patient had normal labs. However, for the last four days she complains of lightheadedness and dizziness, worse with standing or sitting, causing her to "feel off" all weekend. She denies nausea, vomiting, or diarrhea. States having good PO intake. Denies changes to her medications recently. Denies changes to diet or any new supplements. She notes that chronically, she has to urinate 6-7 times per day. Particularly the last few days, she has felt like she has not been able to fully empty her bladder. She has to urinate every hour to 90 minutes, and she states she only makes a small amount each time. On arrival to the ED, her BP was 72/41, with HR of 117. She was given 2L NS bolus, and BP improved. She had to have straight cath to obtain urine in ED, but amount of urine obtained was not documented. - Review of Systems Abdominal/Gastrointestinal: Other (indigestion) All Other Systems: Reviewed and Negative Medications & Allergies Home Medications: Home Medication List levETIRAcetam [Levetiracetam] 1,000 mg PO BID 02/20/19 [History Confirmed 08/23/24] Hydroxychloroquine Sulfate 200 mg PO DAILY 02/19/23 [History Confirmed 08/23/24] Metoprolol Tartrate 25 mg [Lopressor 25MG Tab] 25 mg PO DAILY 07/11/24 [History Confirmed 08/23/24] Lisinopril 10 mg [Zestril 10 MG] 10 mg PO HS 08/23/24 [History Confirmed 08/23/24] Allergies/Adverse Reactions: Allergies Allergy/AdvReac Type Severity Reaction Status Date / Time ca Allergy Severe Swelling Verified 08/23/24 15:35 pregabalin [From Lyrica] Allergy Severe Verified 08/23/24 15:35 amoxicillin Allergy Intermediate Rash Verified 08/23/24 15:35 Penicillins Allergy Intermediate Rash Verified 08/23/24 15:35 propoxyphene HCl Allergy Intermediate PASS OUT Verified 08/23/24 15:35 [From Darvon] - Past Medical History Past Medical History: Yes Neurological History: Migraines, Seizures ENT History: No Pertinent History Cardiac History: Hypertension Respiratory History: COPD Endocrine Medical History: Other Musculoskelatal History: Degenerative Disk Disease, Fibromyalgia GI Medical History: Esophageal Disorder, GERD History: Other Pyscho-Social History: Anxiety, Bipolar, Depression, Panic Disorder Reproductive Disorders: Abnormal Uterine Bleeding Comment: Lupus, Neuropathy, bipolar 1 schizophrenia, PTSD, kidney stones - Female History Hx Last Menstrual Period: post - Past Surgical History Past Surgical History: Yes Neuro Surgical History: No Pertinent History Cardiac History: No Pertinent History Respiratory Surgery: No Pertinent History GI Surgical History: No Pertinent History Genitourinary Surgical Hx: No Pertinent History Musculskeletal Surgical Hx: Other Female Surgical History: Section, Tubal Ligation, Other Other Surgical History: ABLATION - TUBAL LIGATION. BILATERAL WRIST SURGERY. PLATE AND TWO SCREWS IN THE BACK OF NECK. 12/26/20 Surgery to back. cadaver bone in neck Significant Family History: no pertinent family hx - Social History Smoking Status: Current every day smoker How long have you smoked: 32 yrs Exposure to second hand smoke: Yes Alcohol: None Drug Use: none - Social Determinants of Health Will the patient participate in the screening: Yes Do you worry about a steady place to live?: No Do you have any problems with any of the following?: No known problems In the past 12 months,have you had to go without utilities?: No Have you or anyone in your house had to go without enough: No Transportation Issues: No Has anyone in your support network made you feel unsafe?: No - Physical Exam Vital Signs: Vital Signs - 24 hr Temp Pulse Resp BP BP Pulse Ox 08/23/24 21:46 85/54 08/23/24 21:43 96 H 24 97 08/23/24 21:35 104 H 17 90/44 95 08/23/24 21:30 80 18 90/44 92 L 08/23/24 21:25 80 16 88/44 92 L 08/23/24 21:20 84 17 80/47 92 L 08/23/24 21:15 80 17 79/41 92 L 08/23/24 21:10 79 18 86/41 93 L 08/23/24 21:05 78 14 95/41 93 L 08/23/24 21:01 76 17 87/43 93 L 08/23/24 20:55 78 19 85/39 94 L 08/23/24 20:50 78 15 92/38 94 L 08/23/24 20:45 78 17 75/36 95 08/23/24 20:40 96 H 16 78/40 95 08/23/24 20:35 80 19 87/55 92 L 08/23/24 20:30 85 17 90/59 96 08/23/24 20:25 95 H 20 98/63 95 08/23/24 20:20 89 21 99/67 08/23/24 20:15 89 19 94/70 95 08/23/24 20:10 85 21 108/70 100 08/23/24 20:05 86 20 114/69 93 L 08/23/24 20:00 86 21 106/68 93 L 08/23/24 19:55 84 19 96/62 93 L 08/23/24 19:50 81 20 105/66 94 L 08/23/24 19:45 79 17 119/65 96 08/23/24 19:40 88 16 107/70 96 08/23/24 19:35 77 18 111/71 95 08/23/24 19:30 81 12 114/69 95 08/23/24 19:25 73 17 105/64 95 08/23/24 19:20 78 12 113/65 95 08/23/24 19:15 72 14 107/66 96 08/23/24 19:10 91 H 14 118/70 96 08/23/24 19:06 80 12 122/71 98 08/23/24 19:00 83 15 92/53 97 08/23/24 18:55 78 14 94/61 96 08/23/24 18:50 96 H 18 106/62 97 08/23/24 18:45 76 15 117/68 97 08/23/24 18:40 83 17 92/51 97 08/23/24 18:35 78 17 84/56 96 08/23/24 18:30 77 16 81/55 96 08/23/24 18:25 77 13 101/60 98 08/23/24 18:21 76 15 78/48 97 08/23/24 18:15 74 13 143/73 98 08/23/24 18:10 80 20 110/62 97 08/23/24 18:05 79 22 102/58 97 08/23/24 18:00 70 9 L 106/57 98 08/23/24 17:55 72 10 L 104/61 97 08/23/24 17:50 78 14 99/52 98 08/23/24 17:45 80 17 92/53 98 08/23/24 17:40 76 10 L 99/47 99 08/23/24 17:36 76 16 84/42 98 08/23/24 17:30 73 18 96/60 94 L 08/23/24 17:25 78 13 98/57 97 08/23/24 17:20 75 15 85/53 98 08/23/24 17:15 84 25 H 66/37 97 08/23/24 17:11 79 11 L 73/39 95 08/23/24 17:05 80 17 85/57 96 08/23/24 17:00 76 14 79/55 96 08/23/24 16:55 80 15 92/52 96 08/23/24 16:50 81 15 87/57 96 08/23/24 16:45 82 13 88/56 96 08/23/24 16:40 86 24 72/56 96 08/23/24 16:35 101 H 19 86/49 97 08/23/24 16:30 81 7 L 90/61 96 08/23/24 16:27 83 16 91/49 97 08/23/24 16:25 85 38 H 08/23/24 16:13 96/58 08/23/24 16:12 97 08/23/24 16:10 110 H 19 83/49 95 08/23/24 16:05 98 H 14 80/43 96 08/23/24 16:00 88 16 79/49 97 08/23/24 15:55 86 17 81/45 96 08/23/24 15:51 98.0 F 117 H 20 61/49 96 08/23/24 15:47 98 H 12 72/41 98 08/23/24 15:37 104 H 14 49/31 97 General Appearance: no apparent distress Neurologic Exam: alert, 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, other (flat affect) Eye Exam: eyes nml inspection Ears, Nose, Throat Exam: dry mucous membranes Neck Exam: non-tender Respiratory Exam: normal breath sounds, lungs clear, No respiratory distress Cardiovascular Exam: regular rate/rhythm, normal heart sounds, No edema Gastrointestinal/Abdomen Exam: normal bowel sounds, No tenderness, No distention Extremity Exam: normal range of motion, No joint swelling Skin Exam: normal color, No rash Results - Labs Lab/Micro Results: Lab Results-Last 24 Hours 08/23/24 08/23/24 08/23/24 Range/Units 14:00 16:00 16:14 WBC 9.6 (3.98-10.04) x10^3/uL RBC 4.44 (3.93-5.22) x10^6/uL Hgb 14.2 (11.2-15.7) g/dL Hct 41.6 (34.1-44.9) % MCV 93.7 (79.4-94.8) fL MCH 32.0 (25.6-32.2) pg MCHC 34.1 (32.2-35.5) g/dL RDW 11.9 (11.7-14.4) % Plt Count 344 (182-369) x10^3/uL MPV 9.8 (9.4-12.3) fL Gran % 69.6 (34.0-71.1) % Immature Gran % (Auto) 0.3 (0.001-0.429) % Nucleat RBC Rel Count 0.0 (0.00-0.2) % Eos # (Auto) 0.15 (0.04-0.36) x10^3/uL Immature Gran # (Auto) 0.03 (0.001-0.031) x10^3u/L Absolute Lymphs (auto) 2.00 (1.18-3.74) x10^3/uL Absolute Monos (auto) 0.66 (0.24-0.86) x10^3/uL Absolute Nucleated RBC 0.00 (0.00-0.012) x10^3u/L Lymphocytes % 20.9 (19.3-51.7) % Monocytes % 6.9 (4.7-12.5) % Eosinophils % 1.6 (0.7-5.8) % Basophils % 0.7 (0.1-1.2) % Absolute Granulocytes 6.65 H (1.56-6.13) x10^3/uL Basophils # 0.07 (0.01-0.08) x10^3/uL Sodium 138 (135-145) mmol/L Potassium 3.5 (3.5-5.1) mmol/L Chloride 104 (98-107) mmol/L Carbon Dioxide 20 L (22-30) mmol/L Anion Gap 17.3 H (5-15) MEQ/L BUN 20 H (7-17) mg/dL Creatinine 2.37 H (0.52-1.04) mg/dL Estimated GFR 24.5 ML/MIN Glucose 133 H (74-106) mg/dL Calcium 9.7 (8.4-10.2) mg/dL Total Bilirubin 0.60 (0.2-1.3) mg/dL AST 23 (14-36) U/L ALT 21 (0-35) U/L Alkaline Phosphatase 80 (38-126) U/L Creatine Kinase (30-135) U/L Serum Total Protein 7.9 (6.3-8.2) g/dL Albumin 4.6 (3.5-5.0) g/dL Urine Color Dark Yellow A (Yellow) Urine Appearance Cloudy A (Clear) Urine pH 5.5 (4.6-8.0) Ur Specific [place] 1.015 (1.005-1.030) Urine Protein 100 A (Negative) Urine Glucose (UA) Negative (Negative) mg/dL Urine Ketones Trace A (Negative) Urine Blood Negative (Negative) Urine Nitrite Negative (Negative) Urine Bilirubin Negative (Negative) Urine Urobilinogen 1.0 A (0.2) mg/dL Ur Leukocyte Esterase Small A (Negative) U Hyaline Cast (Auto) >50 A (0-2) /LPF Urine Microscopic RBC 0-2 (0-5) /HPF Urine Microscopic WBC 6-10 A (0-5) /HPF Ur Epithelial Cells Few (None Seen) /HPF Urine Bacteria None Seen (None Seen) /HPF Urine Culture Reflexed YES (NO) Urine Opiates Level (NEGATIVE) Ur Methadone (NEGATIVE) Urine Barbiturates (NEGATIVE) Ur Phencyclidine (PCP) (NEGATIVE) Urine Amphetamine (NEGATIVE) U Benzodiazepine Level (NEGATIVE) Urine Cocaine (NEGATIVE) Urine Marijuana (THC) (NEGATIVE) Ethyl Alcohol < 10 (0-10) mg/dL 08/23/24 08/23/2424 Range/Units 16:14 18:50 Unknown WBC (3.98-10.04) x10^3/uL RBC (3.93-5.22) x10^6/uL Hgb (11.2-15.7) g/dL Hct (34.1-44.9) % MCV (79.4-94.8) fL MCH (25.6-32.2) pg MCHC (32.2-35.5) g/dL RDW (11.7-14.4) % Plt Count (182-369) x10^3/uL MPV (9.4-12.3) fL Gran % (34.0-71.1) % Immature Gran % (Auto) (0.001-0.429) % Nucleat RBC Rel Count (0.00-0.2) % Eos # (Auto) (0.04-0.36) x10^3/uL Immature Gran # (Auto) (0.001-0.031) x10^3u/L Absolute Lymphs (auto) (1.18-3.74) x10^3/uL Absolute Monos (auto) (0.24-0.86) x10^3/uL Absolute Nucleated RBC (0.00-0.012) x10^3u/L Lymphocytes % (19.3-51.7) % Monocytes % (4.7-12.5) % Eosinophils % (0.7-5.8) % Basophils % (0.1-1.2) % Absolute Granulocytes (1.56-6.13) x10^3/uL Basophils # (0.01-0.08) x10^3/uL Sodium 138 (135-145) mmol/L Potassium 3.8 (3.5-5.1) mmol/L Chloride 109 H (98-107) mmol/L Carbon Dioxide 18 L (22-30) mmol/L Anion Gap 15.1 H (5-15) MEQ/L BUN 22 H (7-17) mg/dL Creatinine 2.15 H (0.52-1.04) mg/dL Estimated GFR 27.6 ML/MIN Glucose 120 H (74-106) mg/dL Calcium 8.9 (8.4-10.2) mg/dL Total Bilirubin (0.2-1.3) mg/dL AST (14-36) U/L ALT (0-35) U/L Alkaline Phosphatase (38-126) U/L Creatine Kinase 70 (30-135) U/L Serum Total Protein (6.3-8.2) g/dL Albumin (3.5-5.0) g/dL Urine Color (Yellow) Urine Appearance (Clear) Urine pH (4.6-8.0) Ur Specific [place] (1.005-1.030) Urine Protein (Negative) Urine Glucose (UA) (Negative) mg/dL Urine Ketones (Negative) Urine Blood (Negative) Urine Nitrite (Negative) Urine Bilirubin (Negative) Urine Urobilinogen (0.2) mg/dL Ur Leukocyte Esterase (Negative) U Hyaline Cast (Auto) (0-2) /LPF Urine Microscopic RBC (0-5) /HPF Urine Microscopic WBC (0-5) /HPF Ur Epithelial Cells (None Seen) /HPF Urine Bacteria (None Seen) /HPF Urine Culture Reflexed (NO) Urine Opiates Level NEGATIVE (NEGATIVE) Ur Methadone NEGATIVE (NEGATIVE) Urine Barbiturates NEGATIVE (NEGATIVE) Ur Phencyclidine (PCP) NEGATIVE (NEGATIVE) Urine Amphetamine NEGATIVE (NEGATIVE) U Benzodiazepine Level NEGATIVE (NEGATIVE) Urine Cocaine NEGATIVE (NEGATIVE) Urine Marijuana (THC) NEGATIVE (NEGATIVE) Ethyl Alcohol (0-10) mg/dL - Radiology Impressions Radiology Exams & Impressions: Radiology Procedures Category Date Time Status HEAD WITHOUT CONTRAST [CT] Stat Exams 08/23/24 16:[address] Head - no acute findings Assessment/Plan (1) Acute renal insufficiency Current Visit: Yes Status: Acute Assessment & Plan: 48 y/o F with h/o seizures, fibromyalgia, here with FLO. ## Acute renal failure - etiology not totally clear. Her history is primarily consistent with hypovolemia causing prerenal FLO, with her orthostatic symptoms and severe hypotension on arrival that quickly resolved with fluids. However, she denies history of either poor PO intake or rapid losses. As well, her symptoms of frequent urination with sensation of bladder fullness are consistent with post-renal obstruction causing FLO; but this would not typically cause hypotension. However, she does have a history of some urinary frequency, which might indicate a more mild chronic urine retention that acutely worsened. - continue fluid repletion; given 2 L in ED, continue NS at 100 ml/hr - obtain renal U/S (will need to be NPO for procedure) - tonight, do bladder scan q6h, and plan straight cath if >300 ml urine noted; document urine amount obtained - hold home lisinopril - repeat BMP in AM ## Reported acute cystitis - patient does not appear to have a true UTI. She has no dysuria (so at most would be asymptomatic bacteriuria, which still would not warrant antibiotics), and while she has a small amount of WBCs, her main UA finding is heavy hyaline casts, consistent with heavily concentrated urine and pre-renal FLO as above. - d/c antibiotics ## Seizure disorder - seizure last week, but none since being reloaded with Keppra - continue Keppra 1000 mg PO BID ## Hypertension - at baseline, but presented hypotensive due to FLO above - hold home lisinopril (holding anyway for FLO) Code status: Full code Prophylaxis: ambulate (no pharmacologic prophylaxis necessary; Iesha score 0) Diet: Regular (after NPO for renal U/S) Dispo: Place in observation. Expect will discharge to home in 1-2 days. Code(s): N28.9 - DISORDER OF KIDNEY AND URETER, UNSPECIFIED Telemedicine Encounter - Telemedicine Encounter Telemedicine Encounter: "The entirety of this encounter was performed via Telemedicine" This visit was performed using real-time audio and video connection between my location and thepatients locationwith the assistance of a surrogateat the patients location. Written or verbal consent was obtained from the patient/guardian to perform this [facility]. Any patient questions regarding the telemedicine interaction were answered.
[2024-08-24 05:12] LABS: Hemoglobin 11.5 g/dL (11.2-15.7); Mean Cell Volume 95.2 fL (79.4-94.8); Mean Corpuscular Hemoglobin 32.2 pg (25.6-32.2); Mean Corpuscular Hgb Concent. 33.8 g/dL (32.2-35.5); Platelet Count 297 x10^3/uL (182-369); Red Blood Count 3.57 x10^6/uL (3.93-5.22); Red Cell Distribution Width 12.3 % (11.7-14.4)
[2024-08-24 05:59] LABS: ANION GAP 11.9 MEQ/L (5-15); Calcium 8.6 mg/dL (8.4-10.2); Creatinine 1 1.44 mg/dL (0.52-1.04); EST GLOMERULAR FILTRATION RATE 44.6 ML/MIN; Potassium 3.5 mmol/L (3.5-5.1)
[2024-08-24] MEDS ORDERED: MEDICATION INTERVENTION MC SCH (07:15)
[2024-08-24] MEDS: Lopressor 25MG Tab PO SCH (09:03)
--- NOTE | 2024-08-24 09:06 | PCM.NOTE ---
Date and Time: 08/24/24 0851 Subjective Assessment: is a 48 year old female with PMHX of seizures, fibromyalgia, HTN, GERD, anxiety, bipolar, depression, panic disorder, schizophrenia, PTSD, COPD, DDD, Lupus, and daily smoker. She is here with lightheadedness. Patient was [facility] after she had a seizure X2. She was given her Keppra and discharged home Thursday. At that time, patient had normal labs. However, for the last four days she complains of lightheadedness and dizziness, worse with standing or sitting, causing her to "feel off" all weekend. She denies nausea, vomiting, or diarrhea. States having good PO intake. Denies changes to her medications recently. Denies changes to diet or any new supplements. She notes that chronically, she has to urinate 6-7 times per day. Particularly the last few days, she has felt like she has not been able to fully empty her bladder. She has to urinate every hour to 90 minutes, and she states she only makes a small amount each time. On arrival to the ED, her BP was 72/41, with HR of 117. She was given 2L NS bolus, and BP improved. She had to have straight cath to obtain urine in ED, but amount of urine obtained was not documented. Labs on admission showed FLO and IVF fluids resumed. BP remains on the lower side this AM and BP med held. She is pending renal US today and currently NPO. FLO improving with IVF. Will likely d/c tomorrow. She denies CP, SOB, abd pain, N/V/D or lightheadedness. - Review of Systems Constitutional: No Fever, No Chills Eyes: No Symptoms Ears, Nose, & Throat: No Symptoms Respiratory: No Cough, No Short Of Breath Cardiac: No Chest Pain, No Edema, No Syncope Abdominal/Gastrointestinal: No Abdominal Pain, No Nausea, No Vomiting, No Diarrhea Genitourinary Symptoms: No Dysuria Musculoskeletal: No Back Pain, No Neck Pain Skin: No Rash Neurological: No Dizziness, No Focal Weakness, No Sensory Changes Psychological: No Symptoms Endocrine: No Symptoms Hematologic/Lymphatic: No Symptoms Immunological/Allergic: No Symptoms Objective Exam General Appearance: obese Neurologic Exam: alert, 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, cooperative, normal mood/affect, nml cerebellar function, sensation nml, No motor deficits Skin Exam: normal color, warm, dry Eye Exam: PERRL, EOMI, eyes nml inspection Ears, Nose, Throat Exam: normal ENT inspection, pharynx normal, moist mucous membranes Neck Exam: normal inspection, non-tender, supple, full range of motion Respiratory Exam: normal breath sounds, lungs clear, No respiratory distress Cardiovascular Exam: regular rate/rhythm, normal heart sounds Gastrointestinal/Abdomen Exam: soft, No tenderness, No mass Extremity Exam: normal inspection, normal range of motion Back Exam: normal inspection, normal range of motion, No CVA tenderness, No vertebral tenderness Pelvic Exam: deferred Rectal Exam: deferred Objective Data Vital Signs: Vital Signs - 24 hr Temp Pulse Resp BP BP Pulse Ox 08/24/24 06:58 97.3 F 71 16 92/46 96 08/24/24 04:00 97.9 F 68 17 91/54 95 08/24/24 00:00 98.6 F 74 17 97/53 97 08/23/24 23:09 73 16 96 08/23/24 21:58 96.8 F 77 16 98/48 98 08/23/24 21:46 85/54 08/23/24 21:43 96 H 24 97 08/23/24 21:35 104 H 17 90/44 95 08/23/24 21:30 80 18 90/44 92 L 08/23/24 21:25 80 16 88/44 92 L 08/23/24 21:20 84 17 80/47 92 L 08/23/24 21:15 80 17 79/41 92 L 08/23/24 21:10 79 18 86/41 93 L 08/23/24 21:05 78 14 95/41 93 L 08/23/24 21:01 76 17 87/43 93 L 08/23/24 20:55 78 19 85/39 94 L 08/23/24 20:50 78 15 92/38 94 L 08/23/24 20:45 78 17 75/36 95 08/23/24 20:40 96 H 16 78/40 95 08/23/24 20:35 80 19 87/55 92 L 08/23/24 20:30 85 17 90/59 96 08/23/24 20:25 95 H 20 98/63 95 08/23/24 20:20 89 21 99/67 08/23/24 20:15 89 19 94/70 95 08/23/24 20:10 85 21 108/70 100 08/23/24 20:05 86 20 114/69 93 L 08/23/24 20:00 86 21 106/68 93 L 08/23/24 19:55 84 19 96/62 93 L 08/23/24 19:50 81 20 105/66 94 L 08/23/24 19:45 79 17 119/65 96 08/23/24 19:40 88 16 107/70 96 08/23/24 19:35 77 18 111/71 95 08/23/24 19:30 81 12 114/69 95 08/23/24 19:25 73 17 105/64 95 08/23/24 19:20 78 12 113/65 95 08/23/24 19:15 72 14 107/66 96 08/23/24 19:10 91 H 14 118/70 96 08/23/24 19:06 80 12 122/71 98 08/23/24 19:00 83 15 92/53 97 08/23/24 18:55 78 14 94/61 96 08/23/24 18:50 96 H 18 106/62 97 08/23/24 18:45 76 15 117/68 97 08/23/24 18:40 83 17 92/51 97 08/23/24 18:35 78 17 84/56 96 08/23/24 18:30 77 16 81/55 96 08/23/24 18:25 77 13 101/60 98 08/23/24 18:21 76 15 78/48 97 08/23/24 18:15 74 13 143/73 98 08/23/24 18:10 80 20 110/62 97 08/23/24 18:05 79 22 102/58 97 08/23/24 18:00 70 9 L 106/57 98 08/23/24 17:55 72 10 L 104/61 97 08/23/24 17:50 78 14 99/52 98 08/23/24 17:45 80 17 92/53 98 08/23/24 17:40 76 10 L 99/47 99 08/23/24 17:36 76 16 84/42 98 08/23/24 17:30 73 18 96/60 94 L 08/23/24 17:25 78 13 98/57 97 08/23/24 17:20 75 15 85/53 98 08/23/24 17:15 84 25 H 66/37 97 08/23/24 17:11 79 11 L 73/39 95 08/23/24 17:05 80 17 85/57 96 08/23/24 17:00 76 14 79/55 96 08/23/24 16:55 80 15 92/52 96 08/23/24 16:50 81 15 87/57 96 08/23/24 16:45 82 13 88/56 96 08/23/24 16:40 86 24 72/56 96 08/23/24 16:35 101 H 19 86/49 97 08/23/24 16:30 81 7 L 90/61 96 08/23/24 16:27 83 16 91/49 97 08/23/24 16:25 85 38 H 08/23/24 16:13 96/58 08/23/24 16:12 97 08/23/24 16:10 110 H 19 83/49 95 08/23/24 16:05 98 H 14 80/43 96 08/23/24 16:00 88 16 79/49 97 08/23/24 15:55 86 17 81/45 96 08/23/24 15:51 98.0 F 117 H 20 61/49 96 08/23/24 15:47 98 H 12 72/41 98 08/23/24 15:37 104 H 14 49/31 97 Pain Assessment - Last Documented Pain Intensity 0 Intake and Output: Intake & Output 08/21/24 08/22/24 08/23/24 08/24/24 11:59 11:59 11:59 11:59 Intake Total 1211 Output Total 1500 Balance -289 Weight 103.9 kg Lab Results: Lab Results-Last 24 Hours 08/23/24 08/23/24 08/23/24 Range/Units 14:00 16:00 16:14 WBC 9.6 (3.98-10.04) x10^3/uL RBC 4.44 (3.93-5.22) x10^6/uL Hgb 14.2 (11.2-15.7) g/dL Hct 41.6 (34.1-44.9) % MCV 93.7 (79.4-94.8) fL MCH 32.0 (25.6-32.2) pg MCHC 34.1 (32.2-35.5) g/dL RDW 11.9 (11.7-14.4) % Plt Count 344 (182-369) x10^3/uL MPV 9.8 (9.4-12.3) fL Gran % 69.6 (34.0-71.1) % Immature Gran % (Auto) 0.3 (0.001-0.429) % Nucleat RBC Rel Count 0.0 (0.00-0.2) % Eos # (Auto) 0.15 (0.04-0.36) x10^3/uL Immature Gran # (Auto) 0.03 (0.001-0.031) x10^3u/L Absolute Lymphs (auto) 2.00 (1.18-3.74) x10^3/uL Absolute Monos (auto) 0.66 (0.24-0.86) x10^3/uL Absolute Nucleated RBC 0.00 (0.00-0.012) x10^3u/L Lymphocytes % 20.9 (19.3-51.7) % Monocytes % 6.9 (4.7-12.5) % Eosinophils % 1.6 (0.7-5.8) % Basophils % 0.7 (0.1-1.2) % Absolute Granulocytes 6.65 H (1.56-6.13) x10^3/uL Basophils # 0.07 (0.01-0.08) x10^3/uL Sodium 138 (135-145) mmol/L Potassium 3.5 (3.5-5.1) mmol/L Chloride 104 (98-107) mmol/L Carbon Dioxide 20 L (22-30) mmol/L Anion Gap 17.3 H (5-15) MEQ/L BUN 20 H (7-17) mg/dL Creatinine 2.37 H (0.52-1.04) mg/dL Estimated GFR 24.5 ML/MIN Glucose 133 H (74-106) mg/dL Calcium 9.7 (8.4-10.2) mg/dL Total Bilirubin 0.60 (0.2-1.3) mg/dL AST 23 (14-36) U/L ALT 21 (0-35) U/L Alkaline Phosphatase 80 (38-126) U/L Creatine Kinase (30-135) U/L Serum Total Protein 7.9 (6.3-8.2) g/dL Albumin 4.6 (3.5-5.0) g/dL Urine Color Dark Yellow A (Yellow) Urine Appearance Cloudy A (Clear) Urine pH 5.5 (4.6-8.0) Ur Specific Emerson 1.015 (1.005-1.030) Urine Protein 100 A (Negative) Urine Glucose (UA) Negative (Negative) mg/dL Urine Ketones Trace A (Negative) Urine Blood Negative (Negative) Urine Nitrite Negative (Negative) Urine Bilirubin Negative (Negative) Urine Urobilinogen 1.0 A (0.2) mg/dL Ur Leukocyte Esterase Small A (Negative) U Hyaline Cast (Auto) >50 A (0-2) /LPF Urine Microscopic RBC 0-2 (0-5) /HPF Urine Microscopic WBC 6-10 A (0-5) /HPF Ur Epithelial Cells Few (None Seen) /HPF Urine Bacteria None Seen (None Seen) /HPF Urine Culture Reflexed YES (NO) Urine Opiates Level (NEGATIVE) Ur Methadone (NEGATIVE) Urine Barbiturates (NEGATIVE) Ur Phencyclidine (PCP) (NEGATIVE) Urine Amphetamine (NEGATIVE) U Benzodiazepine Level (NEGATIVE) Urine Cocaine (NEGATIVE) Urine Marijuana (THC) (NEGATIVE) Ethyl Alcohol < 10 (0-10) mg/dL 08/23/24 08/23/24 08/23/24 Range/Units 16:14 18:50 Unknown WBC (3.98-10.04) x10^3/uL RBC (3.93-5.22) x10^6/uL Hgb (11.2-15.7) g/dL Hct (34.1-44.9) % MCV (79.4-94.8) fL MCH (25.6-32.2) pg MCHC (32.2-35.5) g/dL RDW (11.7-14.4) % Plt Count (182-369) x10^3/uL MPV (9.4-12.3) fL Gran % (34.0-71.1) % Immature Gran % (Auto) (0.001-0.429) % Nucleat RBC Rel Count (0.00-0.2) % Eos # (Auto) (0.04-0.36) x10^3/uL Immature Gran # (Auto) (0.001-0.031) x10^3u/L Absolute Lymphs (auto) (1.18-3.74) x10^3/uL Absolute Monos (auto) (0.24-0.86) x10^3/uL Absolute Nucleated RBC (0.00-0.012) x10^3u/L Lymphocytes % (19.3-51.7) % Monocytes % (4.7-12.5) % Eosinophils % (0.7-5.8) % Basophils % (0.1-1.2) % Absolute Granulocytes (1.56-6.13) x10^3/uL Basophils # (0.01-0.08) x10^3/uL Sodium 138 (135-145) mmol/L Potassium 3.8 (3.5-5.1) mmol/L Chloride 109 H (98-107) mmol/L Carbon Dioxide 18 L (22-30) mmol/L Anion Gap 15.1 H (5-15) MEQ/L BUN 22 H (7-17) mg/dL Creatinine 2.15 H (0.52-1.04) mg/dL Estimated GFR 27.6 ML/MIN Glucose 120 H (74-106) mg/dL Calcium 8.9 (8.4-10.2) mg/dL Total Bilirubin (0.2-1.3) mg/dL AST (14-36) U/L ALT (0-35) U/L Alkaline Phosphatase (38-126) U/L Creatine Kinase 70 (30-135) U/L Serum Total Protein (6.3-8.2) g/dL Albumin (3.5-5.0) g/dL Urine Color (Yellow) Urine Appearance (Clear) Urine pH (4.6-8.0) Ur Specific Emerson (1.005-1.030) Urine Protein (Negative) Urine Glucose (UA) (Negative) mg/dL Urine Ketones (Negative) Urine Blood (Negative) Urine Nitrite (Negative) Urine Bilirubin (Negative) Urine Urobilinogen (0.2) mg/dL Ur Leukocyte Esterase (Negative) U Hyaline Cast (Auto) (0-2) /LPF Urine Microscopic RBC (0-5) /HPF Urine Microscopic WBC (0-5) /HPF Ur Epithelial Cells (None Seen) /HPF Urine Bacteria (None Seen) /HPF Urine Culture Reflexed (NO) Urine Opiates Level NEGATIVE (NEGATIVE) Ur Methadone NEGATIVE (NEGATIVE) Urine Barbiturates NEGATIVE (NEGATIVE) Ur Phencyclidine (PCP) NEGATIVE (NEGATIVE) Urine Amphetamine NEGATIVE (NEGATIVE) U Benzodiazepine Level NEGATIVE (NEGATIVE) Urine Cocaine NEGATIVE (NEGATIVE) Urine Marijuana (THC) NEGATIVE (NEGATIVE) Ethyl Alcohol (0-10) mg/dL 08/24/24 08/24/24 Range/Units 04:47 04:47 WBC 7.0 (3.98-10.04) x10^3/uL RBC 3.57 L (3.93-5.22) x10^6/uL Hgb 11.5 (11.2-15.7) g/dL Hct 34.0 L (34.1-44.9) % MCV 95.2 H (79.4-94.8) fL MCH 32.2 (25.6-32.2) pg MCHC 33.8 (32.2-35.5) g/dL RDW 12.3 (11.7-14.4) % Plt Count 297 (182-369) x10^3/uL MPV 10.0 (9.4-12.3) fL Gran % (34.0-71.1) % Immature Gran % (Auto) (0.001-0.429) % Nucleat RBC Rel Count (0.00-0.2) % Eos # (Auto) (0.04-0.36) x10^3/uL Immature Gran # (Auto) (0.001-0.031) x10^3u/L Absolute Lymphs (auto) (1.18-3.74) x10^3/uL Absolute Monos (auto) (0.24-0.86) x10^3/uL Absolute Nucleated RBC (0.00-0.012) x10^3u/L Lymphocytes % (19.3-51.7) % Monocytes % (4.7-12.5) % Eosinophils % (0.7-5.8) % Basophils % (0.1-1.2) % Absolute Granulocytes (1.56-6.13) x10^3/uL Basophils # (0.01-0.08) x10^3/uL Sodium 139 (135-145) mmol/L Potassium 3.5 (3.5-5.1) mmol/L Chloride 109 H (98-107) mmol/L Carbon Dioxide 22 (22-30) mmol/L Anion Gap 11.9 (5-15) MEQ/L BUN 19 H (7-17) mg/dL Creatinine 1.44 H (0.52-1.04) mg/dL Estimated GFR 44.6 ML/MIN Glucose 100 (74-106) mg/dL Calcium 8.6 (8.4-10.2) mg/dL Total Bilirubin (0.2-1.3) mg/dL AST (14-36) U/L ALT (0-35) U/L Alkaline Phosphatase (38-126) U/L Creatine Kinase (30-135) U/L Serum Total Protein (6.3-8.2) g/dL Albumin (3.5-5.0) g/dL Urine Color (Yellow) Urine Appearance (Clear) Urine pH (4.6-8.0) Ur Specific Emerson (1.005-1.030) Urine Protein (Negative) Urine Glucose (UA) (Negative) mg/dL Urine Ketones (Negative) Urine Blood (Negative) Urine Nitrite (Negative) Urine Bilirubin (Negative) Urine Urobilinogen (0.2) mg/dL Ur Leukocyte Esterase (Negative) U Hyaline Cast (Auto) (0-2) /LPF Urine Microscopic RBC (0-5) /HPF Urine Microscopic WBC (0-5) /HPF Ur Epithelial Cells (None Seen) /HPF Urine Bacteria (None Seen) /HPF Urine Culture Reflexed (NO) Urine Opiates Level (NEGATIVE) Ur Methadone (NEGATIVE) Urine Barbiturates (NEGATIVE) Ur Phencyclidine (PCP) (NEGATIVE) Urine Amphetamine (NEGATIVE) U Benzodiazepine Level (NEGATIVE) Urine Cocaine (NEGATIVE) Urine Marijuana (THC) (NEGATIVE) Ethyl Alcohol (0-10) mg/dL Radiology Exams: Radiology Procedures Category Date Time Status HEAD WITHOUT CONTRAST [CT] Stat Exams 08/23/24 16:09 Completed Renal Ultrasound [KIDNEY] [US] Routine Exams 08/23/24 22:58 Ordered Assessment/Plan (1) Acute renal insufficiency Current Visit: Yes Status: Acute Assessment & Plan: - Creat 1.44- baseline 0.86 - Continue IVF - Renal US- NPO today - do bladder scan q6h, and plan straight cath if >300 ml urine noted; document urine amount obtained - hold home lisinopril - A1C - CBC, CMP, UA reviewed Code(s): N28.9 - DISORDER OF KIDNEY AND URETER, UNSPECIFIED (2) Hypotension Current Visit: Yes Status: Acute Assessment & Plan: - Monitor BP - Hold BP meds - IVF - improving- trend - 2:2 FLO Code(s): I95.9 - HYPOTENSION, UNSPECIFIED (3) HTN (hypertension) Current Visit: Yes Status: Chronic Assessment & Plan: - at baseline, but presented hypotensive due to FLO above - hold home lisinopril (holding anyway for FLO) - hold lopressor for now until BP improved Code(s): I10 - ESSENTIAL (PRIMARY) HYPERTENSION (4) Smoker Current Visit: Yes Status: Chronic Assessment & Plan: - advised cessation- education provided - Nicotine patch Code(s): F17.200 - NICOTINE DEPENDENCE, UNSPECIFIED, UNCOMPLICATED (5) Obesity (BMI 30.0-34.9) Current Visit: Yes Status: Chronic Assessment & Plan: - advised diet and exercise control Code(s): E66.811 - OBESITY, CLASS 1 (6) Dehydration Current Visit: Yes Status: Resolved Assessment & Plan: - Anion gap WNL today - Continue IVF for FLO Code(s): E86.0 - DEHYDRATION (7) Dizziness Current Visit: Yes Status: Resolved Assessment & Plan: - resolved today Code(s): R42 - DIZZINESS AND GIDDINESS (8) UTI (urinary tract infection) Current Visit: Yes Status: Resolved Assessment & Plan: - patient does not appear to have a true UTI. She has no dysuria (so at most would be asymptomatic bacteriuria, which still would not warrant antibiotics), and while she has a small amount of WBCs, her main UA finding is heavy hyaline casts, consistent with heavily concentrated urine and pre-renal FLO as above. - d/c antibiotics Code(s): N39.0 - URINARY TRACT INFECTION, SITE NOT SPECIFIED (9) Hx of seizure disorder Current Visit: Yes Status: Chronic Assessment & Plan: - Continue Keppra VTE: SCD Next of KIN: Brodie Cartagena [phone] D/C plan: tomorrow Code status: Full Code(s): Z86.69 - PERSONAL HISTORY OF DIS OF THE NERVOUS SYS AND SENSE ORGANS
[2024-08-24] MEDS: Nicoderm CQ 21 MG TOP SCH (09:22)
[2024-08-24] MEDS ORDERED: NON-FORMULARY ITEM (Hydroxychloroquine Sulfate [Hydroxychloroquine Sulfate] 200 MG Tablet) PO SCH (10:00)
[2024-08-24] MEDS ORDERED: ROCEPHIN 1 GM / 100 ML NaCl 1 GM/100 ML IVPB IV SCH (10:00)
[2024-08-24] MEDS: TYLENOL 325 MG PO PRN (11:18)
--- NOTE | 2024-08-24 11:47 | XRAY ---
Indication: Acute renal failure. Two-dimensional renal sonogram performed. Comparison: None Both kidneys normal reniform shape with normal color perfusion. Right kidney measures 12.5 x 4.8 x 6.2 cm and left measures 12.2 x 6.0 x 9.0 cm. Left mid kidney demonstrates 2.4 x 2.2 x 2.2 cm benign cyst. No suspicious solid renal mass or hydronephrosis. Cortical medullary differentiation preserved. Minimally distended urinary bladder is grossly unremarkable. Ureteral jets not seen within the allotted exam time. Prevoid bladder volume is 124 cc. Postvoid demonstrates complete emptying. Impression: Left renal cyst. Remaining renal sonogram is negative.
[2024-08-24] MEDS: Miralax Powder 17GM PACKET PO SCH (20:10)
[2024-08-25 04:16] VITALS: O2SAT 98
[2024-08-25 04:53] LABS: Hematocrit 34.2 % (34.1-44.9); Hemoglobin 11.3 g/dL (11.2-15.7); Mean Cell Volume 96.3 fL (79.4-94.8); Mean Corpuscular Hemoglobin 31.8 pg (25.6-32.2); Mean Platelet Volume 9.9 fL (9.4-12.3); Platelet Count 289 x10^3/uL (182-369); Red Blood Count 3.55 x10^6/uL (3.93-5.22)
[2024-08-25 05:11] LABS: ALBUMIN 3.6 g/dL (3.5-5.0); ANION GAP 10.4 MEQ/L (5-15); BILIRUBIN,TOTAL 0.2 mg/dL (0.2-1.3); Calcium 8.9 mg/dL (8.4-10.2); Creatinine 1 0.96 mg/dL (0.52-1.04); EST GLOMERULAR FILTRATION RATE 72.5 ML/MIN; Potassium 4.3 mmol/L (3.5-5.1); Total Protein 6.3 g/dL (6.3-8.2)
[2024-08-25 07:49] VITALS: BP 124/61; PULSE 68; RESP 16; TEMP 97.3
--- NOTE | 2024-08-25 10:30 | PCM.DS ---
Discharge Summary Date of Admission: 08/23/24 21:53 Date of Discharge: 08/25/24 Admitting Physician: RADHA GE MD Consults: Consults on Case 08/24/24 09:54 [facility] Needs Assessment ROUTINE Primary Care Provider: FRANSICSA VEGA CORY Allergies Allergies ca Allergy (Severe, Verified 08/23/24 15:35) Swelling pregabalin [From Lyrica] Allergy (Severe, Verified 08/23/24 15:35) amoxicillin Allergy (Intermediate, Verified 08/23/24 15:35) Rash Penicillins Allergy (Intermediate, Verified 08/23/24 15:35) Rash propoxyphene HCl [From Darvon] Allergy (Intermediate, Verified 08/23/24 15:35) PASS OUT Hospital Summary - Hospital Course Hospital Course: 08/24/24 is a 48 year old female with PMHX of seizures, fibromyalgia, HTN, GERD, anxiety, bipolar, depression, panic disorder, schizophrenia, PTSD, COPD, DDD, Lupus, and daily smoker. She is here with lightheadedness. Patient was admitted to [facility] last week after she had a seizure X2. She was given her Keppra and discharged home Thursday. At that time, patient had normal labs. However, for the last four days she complains of lightheadedness and dizziness, worse with standing or sitting, causing her to "feel off" all weekend. She denies nausea, vomiting, or diarrhea. States having good PO intake. Denies nadeem nges to her medications recently. Denies changes to diet or any new supplements. She notes that chronically, she has to urinate 6-7 times per day. Particularly the last few days, she has felt like she has not been able to fully empty her bladder. She has to urinate every hour to 90 minutes, and she states she only makes a small amount each time. On arrival to the ED, her BP was 72/41, with HR of 117. She was given 2L NS bolus, and BP improved. She had to have straight cath to obtain urine in ED, but amount of urine obtained was not documented. Labs on admission showed FLO and IVF fluids resumed. BP remains on the lower side this AM and BP med held. She is pending renal US today and currently NPO. FLO improving with IVF. Will likely d/c tomorrow. She denies CP, SOB, abd pain, N/V/D or lightheadedness. 08/25/24 Pt resting in bed. She is C/o left shoulder pain and feeling shaky. She states she fell prior to admission and thinks her pain may be realted to this. She is refusing XR's for further eval at this time. She is unsure why she feels shaky. She has been eating and drinking well. Discussed labs and that FLO is now resolved. IV fluids stopped. UC negative. Voltaren cream ordered for shoulder as this is what she wanted. She denies CP, SOB, abd pain, N/V/D. Yesterday she had some CP and feels it was related to constipation. Trop and EKG non-concerning. She has still yet to have a BM but refusing anything for this and states she would rather go home and have a BM there. She is wanting to d/c today. - Vitals & Intake/Output Vital Signs: Vital Signs Temperature 97.3 F 08/25/24 07:48 Pulse Rate 68 08/25/24 07:48 Respiratory Rate 16 08/25/24 07:48 Blood Pressure 124/61 08/25/24 07:48 O2 Sat by Pulse Oximetry 98 08/25/24 07:48 Intake & Output: Intake & Output 08/22/24 08/23/24 08/24/24 08/25/24 11:59 11:59 11:59 11:59 Intake Total 1211 4571 Output Total 1999 2750 Balance -789 1821 Weight 103.9 kg 104.5 kg - Lab Result Diagrams: 08/25/24 04:25 08/25/24 04:25 Lab Results-Last 24 Hrs: Lab Results-Last 24 Hours 08/24/24 08/25/24 08/25/24 Range/Units 18:05 04:25 04:25 WBC 6.0 (3.98-10.04) x10^3/uL RBC 3.55 L (3.93-5.22) x10^6/uL Hgb 11.3 (11.2-15.7) g/dL Hct 34.2 (34.1-44.9) % MCV 96.3 H (79.4-94.8) fL MCH 31.8 (25.6-32.2) pg MCHC 33.0 (32.2-35.5) g/dL RDW 12.0 (11.7-14.4) % Plt Count 289 (182-369) x10^3/uL MPV 9.9 (9.4-12.3) fL Sodium (135-145) mmol/L Potassium (3.5-5.1) mmol/L Chloride (98-107) mmol/L Carbon Dioxide (22-30) mmol/L Anion Gap (5-15) MEQ/L BUN (7-17) mg/dL Creatinine (0.52-1.04) mg/dL Estimated GFR ML/MIN Glucose (74-106) mg/dL Hemoglobin A1c 5.36 (4.5-6.0) % Calcium (8.4-10.2) mg/dL Total Bilirubin (0.2-1.3) mg/dL AST (14-36) U/L ALT (0-35) U/L Alkaline Phosphatase (38-126) U/L Troponin I < 0.012 (0.000-0.033) ng/mL Serum Total Protein (6.3-8.2) g/dL Albumin (3.5-5.0) g/dL 08/25/24 Range/Units 04:25 WBC (3.98-10.04) x10^3/uL RBC (3.93-5.22) x10^6/uL Hgb (11.2-15.7) g/dL Hct (34.1-44.9) % MCV (79.4-94.8) fL MCH (25.6-32.2) pg MCHC (32.2-35.5) g/dL RDW (11.7-14.4) % Plt Count (182-369) x10^3/uL MPV (9.4-12.3) fL Sodium 139 (135-145) mmol/L Potassium 4.3 D (3.5-5.1) mmol/L Chloride 108 H (98-107) mmol/L Carbon Dioxide 25 (22-30) mmol/L Anion Gap 10.4 (5-15) MEQ/L BUN 21 H (7-17) mg/dL Creatinine 0.96 (0.52-1.04) mg/dL Estimated GFR 72.5 ML/MIN Glucose 96 (74-106) mg/dL Hemoglobin A1c (4.5-6.0) % Calcium 8.9 (8.4-10.2) mg/dL Total Bilirubin 0.20 (0.2-1.3) mg/dL AST 17 (14-36) U/L ALT 12 (0-35) U/L Alkaline Phosphatase 56 (38-126) U/L Troponin I (0.000-0.033) ng/mL Serum Total Protein 6.3 (6.3-8.2) g/dL Albumin 3.6 (3.5-5.0) g/dL Micro Results-Entire Visit: Microbiology 08/23/24 16:14 Urine Culture - Preliminary Catherized NO GROWTH TO DATE - Radiology Exams Ordered Rad Exams-Entire Visit: Radiology Procedures Category Date Time Status HEAD WITHOUT CONTRAST [CT] Stat Exams 08/23/24 16:09 Completed KIDNEY [US] Routine Exams 08/24/24 22:58 Completed - Procedures and Test Procedures and Tests throughout Hospitalization: Therapy Orders & Screens 08/23/24 23:09 Respiratory Therapy Consult ONCE Comment: Reason For Exam: Diagnosis: lightheadedness 08/23/24 23:15 Smoking Cessation Education ONCE Comment: Diagnosis: lightheadedness Smoking Status: Current every day smoker How long have you smoked: 32 yrs Have you smoked in the past 12 months: Yes Approximately how many cigarettes per day: 1/2 pack/day Do you dip or chew tobacco: No 08/24/24 17:57 EKG STAT Comment: EKG Reason: Chest Pain Discharge Exam General Appearance: no apparent distress, alert Neurologic Exam: alert, 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, cooperative, normal mood/affect, nml cerebellar function, sensation nml, No motor deficits Eye Exam: PERRL, EOMI, eyes nml inspection Ears, Nose, Throat Exam: normal ENT inspection, pharynx normal, moist mucous membranes Neck Exam: normal inspection, non-tender, supple, full range of motion Respiratory Exam: normal breath sounds, lungs clear, No respiratory distress Cardiovascular Exam: regular rate/rhythm, normal heart sounds Gastrointestinal/Abdomen Exam: soft, No tenderness, No mass Pelvic Exam: deferred Rectal Exam: deferred Back Exam: normal inspection, normal range of motion, No CVA tenderness, No vertebral tenderness Extremity Exam: normal inspection, normal range of motion Skin Exam: normal color, warm, dry Final Diagnosis/Problem List - Final Discharge Diagnosis/Problem (1) Acute renal insufficiency Current Visit: Yes Status: Acute Code(s): N28.9 - DISORDER OF KIDNEY AND URETER, UNSPECIFIED (2) Hypotension Current Visit: Yes Status: Acute Code(s): I95.9 - HYPOTENSION, UNSPECIFIED (3) HTN (hypertension) Current Visit: Yes Status: Chronic Code(s): I10 - ESSENTIAL (PRIMARY) HYPERTENSION (4) Smoker Current Visit: Yes Status: Chronic Code(s): F17.200 - NICOTINE DEPENDENCE, UNSPECIFIED, UNCOMPLICATED (5) Obesity (BMI 30.0-34.9) Current Visit: Yes Status: Chronic Code(s): E66.811 - OBESITY, CLASS 1 (6) Dehydration Current Visit: Yes Status: Resolved Code(s): E86.0 - DEHYDRATION (7) Dizziness Current Visit: Yes Status: Resolved Code(s): R42 - DIZZINESS AND GIDDINESS (8) UTI (urinary tract infection) Current Visit: Yes Status: Resolved Code(s): N39.0 - URINARY TRACT INFECTION, SITE NOT SPECIFIED (9) Hx of seizure disorder Current Visit: Yes Status: Chronic Assessment & Plan: (1) Acute renal insufficiency Current Visit: Yes Status: Acute Assessment & Plan: - Creat 1.44- baseline 0.86 - Continue IVF - Renal US- NPO today - do bladder scan q6h, and plan straight cath if >300 ml urine noted; document urine amount obtained - hold home lisinopril - A1C - CBC, CMP, UA reviewed 08/25 - Renal US shows left renal cyst 2.4x2.2x2.2- no monitoring needed - FLO resolved - IVF stopped - CBC, CMP, UA reviewed Code(s): N28.9 - DISORDER OF KIDNEY AND URETER, UNSPECIFIED (2) Hypotension Current Visit: Yes Status: Acute Assessment & Plan: - Monitor BP - Hold BP meds - IVF - improving- trend - 2:2 FLO 08/25 - resolved - continue BP meds Code(s): I95.9 - HYPOTENSION, UNSPECIFIED (3) HTN (hypertension) Current Visit: Yes Status: Chronic Assessment & Plan: - at baseline, but presented hypotensive due to FLO above - hold home lisinopril (holding anyway for FLO) - hold lopressor for now until BP improved 08/25 - continue home BP meds Code(s): I10 - ESSENTIAL (PRIMARY) HYPERTENSION (4) Smoker Current Visit: Yes Status: Chronic Assessment & Plan: - advised cessation- education provided - Nicotine patch Code(s): F17.200 - NICOTINE DEPENDENCE, UNSPECIFIED, UNCOMPLICATED (5) Obesity (BMI 30.0-34.9) Current Visit: Yes Status: Chronic Assessment & Plan: - advised diet and exercise control Code(s): E66.811 - OBESITY, CLASS 1 (6) Dehydration Current Visit: Yes Status: Resolved Assessment & Plan: - Anion gap WNL today - Continue IVF for FLO Code(s): E86.0 - DEHYDRATION (7) Dizziness Current Visit: Yes Status: Resolved Assessment & Plan: - resolved today Code(s): R42 - DIZZINESS AND GIDDINESS (8) UTI (urinary tract infection) Current Visit: Yes Status: Resolved Assessment & Plan: - patient does not appear to have a true UTI. She has no dysuria (so at most wou ld be asymptomatic bacteriuria, which still would not warrant antibiotics), and while she has a small amount of WBCs, her main UA finding is heavy hyaline casts, consistent with heavily concentrated urine and pre-renal FLO as above. - d/c antibiotics Code(s): N39.0 - URINARY TRACT INFECTION, SITE NOT SPECIFIED (9) Hx of seizure disorder Current Visit: Yes Status: Chronic Assessment & Plan: - Continue Keppra Code(s): Z86.69 - PERSONAL HISTORY OF DIS OF THE NERVOUS SYS AND SENSE ORGANS - Discharge Discharge Date: 08/25/24 Disposition: Home, Self-Care Condition: Stable Prescriptions: Continue levETIRAcetam [Levetiracetam] 1,000 mg PO BID Hydroxychloroquine Sulfate 200 mg PO DAILY Metoprolol Tartrate 25 mg [Lopressor 25MG Tab] 25 mg PO DAILY Lisinopril 10 mg [Zestril 10 MG] 10 mg PO HS Instructions: Acute kidney injury, Dehydration, Adult ED Additional Instructions: Ultrasound showed left renal cyst that is non-concerning. Follow up with PCP as scheduled. Follow up with: FRANSISCA RAY NP [Primary Care Provider] - 09/02/24 11:00 am Forms: Discharge Instructions
[2024-08-25] MEDS: DICLOFENAC SODIUM TP PRN (11:19)
== END 2024-08-25 11:30 | disposition home or self-care (01) ==
LOC: ED 15:17 → MED SURG 21:53
PROVIDERS: ADMIT Internal Medicine; ATTEND Internal Medicine
DX: N28.9 Disorder of kidney and ureter, unspecified (principal); I95.9 Hypotension, unspecified; I10 Essential (primary) hypertension; F17.200 Nicotine dependence, unspecified, uncomplicated; E66.811 Obesity, class 1; E86.0 Dehydration; R42 Dizziness and giddiness; N39.0 Urinary tract infection, site not specified; Z86.69 Personal history of other diseases of the nervous system and sense organs; W19.XXXA Unspecified fall, initial encounter; R35.0 Frequency of micturition; Z79.899 Other long term (current) drug therapy
CPT/HCPCS: 36000; 36415; 70450; 76770; 80048; 80053; 80307; 81001; 82077; 82550; 83036; 84484; 85025; 85027; 87086; 93005; 93041; 94760; 96360; 96361; 96365; 96374; 96375; 99291; G0378; Q3014; 96376; 99285; J0696; J2405; A9270-GY

== ENCOUNTER 2024-08-30 15:48 | Emergency (ER) | payer OTHER ==
[2013-06-28 16:00] VITALS: BP 119/67
== END 2024-08-30 16:00 | disposition left against medical advice (07) ==
LOC: ED 15:48
DX: Z53.21 Procedure and treatment not carried out due to patient leaving prior to being seen by health care provider (principal)

== ENCOUNTER 2024-11-07 14:17 | Emergency (ER) | payer OTHER ==
[2024-11-07 14:25] VITALS: TEMP 97; O2SAT 98
--- NOTE | 2024-11-07 14:52 | ERPHSYRPT ---
- History of Present Illness Time Seen by Provider: 11/07/24 14:45 Source: patient Exam Limitations: clinical condition Patient Subjective Stated Complaint: Chest pain Triage Nursing Assessment: Patient ambulated back to ED and transferred self to bed. Patient A+O X 3. Patient's skin pink, warm and dry. Patient complains of chest heaviness and right arm pain 4/10 that started this am when she woke up at 0900. Patient denies N/V or diarrhea. Lungs clear a/p kalee. Patient also reports pain to right hip/leg after falling yesterday. No visible bruising or trauma noted. Timing/Duration: yesterday Severity: mild Modifying Factors: Improves With: movement Allergies/Adverse Reactions: ca Allergy (Severe, Verified 11/07/24 14:20) Swelling pregabalin [From Lyrica] Allergy (Severe, Verified 11/07/24 14:20) amoxicillin Allergy (Intermediate, Verified 11/07/24 14:20) Rash Penicillins Allergy (Intermediate, Verified 11/07/24 14:20) Rash propoxyphene HCl [From Darvon] Allergy (Intermediate, Verified 11/07/24 14:20) PASS OUT Home Medications: levETIRAcetam [Levetiracetam] 1,000 mg PO BID 02/20/19 [History] Hydroxychloroquine Sulfate 200 mg PO DAILY 02/19/23 [History] Metoprolol Tartrate 25 mg [Lopressor 25MG Tab] 25 mg PO DAILY 07/11/24 [History] Lisinopril 10 mg [Zestril 10 MG] 10 mg PO HS 08/23/24 [History] Hx Tetanus, Diphtheria Vaccination/Date Given: Yes Hx Influenza Vaccination/Date Given: Yes Hx Pneumococcal Vaccination/Date Given: No Immunizations Up to Date: Yes Travel Risk - International Travel Have you traveled outside of the country in past 3 weeks: No - Emerging Infectious Disease Are you exhibiting symptoms associated with any current EIDs: No Symptoms: Headaches/Body Aches/ - Past Medical History Pertinent Past Medical History: Yes Neurological History: Migraines, Seizures ENT History: No Pertinent History Cardiac History: Hypertension Respiratory History: COPD Endocrine Medical History: Other Musculoskeletal History: Degenerative Disk Disease, Fibromyalgia GI Medical History: Esophageal Disorder, GERD History: Other Psycho-Social History: Anxiety, Bipolar, Depression, Panic Disorder Female Reproductive Disorders: Abnormal Uterine Bleeding Other Medical History: Lupus, Neuropathy, bipolar 1 schizophrenia, PTSD, kidney stones - Past Surgical History Past Surgical History: Yes Neuro Surgical History: No Pertinent History Cardiac: No Pertinent History Respiratory: No Pertinent History Gastrointestinal: No Pertinent History Genitourinary: No Pertinent History Musculoskeletal: Other Female Surgical History: Section, Tubal Ligation, Other Other Surgical History: ABLATION - TUBAL LIGATION. BILATERAL WRIST SURGERY. PLATE AND TWO SCREWS IN THE BACK OF NECK. 12/26/20 Surgery to back. cadaver bone in neck Significant Family History: no pertinent family hx - Female History Hx Last Menstrual Period: Ablation/tubal Hx Now: No - Social History Smoking Status: Former smoker How long have you smoked: 32 yrs Exposure to second hand smoke: Yes Drug Use: none Patient Lives Alone: No - Social Determinants of Health Will the patient participate in the screening: Yes Do you worry about a steady place to live?: No Do you have any problems with any of the following?: No known problems In the past 12 months,have you had to go without utilities?: No Transportation Issues: No Has anyone in your support network made you feel unsafe?: No Have you or anyone in your house had to go without enough: No - Nursing Vital Signs Nursing Vital Signs: Initial Vital Signs Temperature 97.0 F 11/07/24 14:20 Pulse Rate 79 11/07/24 14:20 Respiratory Rate 20 11/07/24 14:20 Blood Pressure 141/90 11/07/24 14:20 O2 Sat by Pulse Oximetry 98 11/07/24 14:20 Pain Scale Pain Intensity 6 - Physical Exam SpO2: 98 Ordered Tests: Active Orders 24 hr Category Date Time Status ABDOMEN AND PELVIS W CONTRAST [CT] Stat Exams 11/07/24 14:50 Completed CHEST WITH CONTRAST [CT] Stat Exams 11/07/24 14:49 Completed CBC W DIFF Stat Lab 11/07/24 15:00 Completed CMP Stat Lab 11/07/24 15:00 Completed TROPONIN Q4H Lab 11/07/24 15:00 Completed TROPONIN Q4H Lab 11/07/24 19:00 Ordered TROPONIN Q4H Lab 11/07/24 23:00 Ordered Medication Summary Discontinued Medications Generic Name Dose Route Start Last Admin Trade Name Freq PRN Reason Stop Dose Admin Aspirin 324 mg 11/07/24 14:48 11/07/24 15:11 Aspirin 81 Mg Tab.Chew PO 11/07/24 14:49 324 mg STAT ONE Administration Aspirin Confirm 11/07/24 15:08 Aspirin 81 Mg Tab.Chew Administered 11/07/24 15:09 Dose 324 mg .ROUTE .STK-MED ONE Morphine Sulfate 4 mg 11/07/24 14:48 11/07/24 15:11 Morphine Sulfate 4 Mg/Ml Injection IV 11/07/24 14:49 4 mg STAT ONE Administration Morphine Sulfate Confirm 11/07/24 15:09 Morphine Sulfate 4 Mg/Ml Injection Administered 11/07/24 15:10 Dose 4 mg .ROUTE .STK-MED ONE Lab/Rad Data: Laboratory Result Diagrams 11/07/24 15:00 11/07/24 15:00 Laboratory Results 11/07/24 11/07/24 11/07/24 Range/Units 15:00 15:00 15:00 WBC 7.4 (3.98-10.04) x10^3/uL RBC 3.91 L (3.93-5.22) x10^6/uL Hgb 12.4 (11.2-15.7) g/dL Hct 37.3 (34.1-44.9) % MCV 95.4 H (79.4-94.8) fL MCH 31.7 (25.6-32.2) pg MCHC 33.2 (32.2-35.5) g/dL RDW 13.0 (11.7-14.4) % Plt Count 343 (182-369) x10^3/uL MPV 9.4 (9.4-12.3) fL Gran % 54.9 (34.0-71.1) % Immature Gran % (Auto) 0.3 (0.001-0.429) % Nucleat RBC Rel Count 0.0 (0.00-0.2) % Eos # (Auto) 0.29 (0.04-0.36) x10^3/uL Immature Gran # (Auto) 0.02 (0.001-0.031) x10^3u/L Absolute Lymphs (auto) 2.28 (1.18-3.74) x10^3/uL Absolute Monos (auto) 0.67 (0.24-0.86) x10^3/uL Absolute Nucleated RBC 0.00 (0.00-0.012) x10^3u/L Lymphocytes % 30.9 (19.3-51.7) % Monocytes % 9.1 (4.7-12.5) % Eosinophils % 3.9 (0.7-5.8) % Basophils % 0.9 (0.1-1.2) % Absolute Granulocytes 4.05 (1.56-6.13) x10^3/uL Basophils # 0.07 (0.01-0.08) x10^3/uL Sodium 141 (135-145) mmol/L Potassium 4.0 (3.5-5.1) mmol/L Chloride 107 (98-107) mmol/L Carbon Dioxide 27 (22-30) mmol/L Anion Gap 10.1 (5-15) MEQ/L BUN 16 (7-17) mg/dL Creatinine 0.73 (0.52-1.04) mg/dL Estimated GFR 100.8 ML/MIN Glucose 135 H (74-106) mg/dL Calcium 9.2 (8.4-10.2) mg/dL Total Bilirubin 0.20 (0.2-1.3) mg/dL AST 29 (14-36) U/L ALT 20 (0-35) U/L Alkaline Phosphatase 52 (38-126) U/L Troponin I < 0.012 (0.000-0.033) ng/mL Serum Total Protein 7.0 (6.3-8.2) g/dL Albumin 4.1 (3.5-5.0) g/dL - Progress Progress Note: Patient was seen and evaluated for pleuritic chest pain on the right side of her chest after she had a seizure and fell yesterday she is also complaining of pain to the right side of her flank and right lateral hip area examination of t his area was performed with the nursing staff present revealed no evidence of ecchymosis or bruising CT scan of the chest abdomen pelvis reveals no acute findings patient was given opioid analgesia here in the department she was updated with the results and informed of the need to follow-up with her primary care provider 11/07/24 18:16 Medical Desision Making - Discussion of managment Agreed on:: need for follow-up Will see patient: In office - Departure Departure Disposition: Home Clinical Impression: Chest pain with minimal risk for cardiac etiology, Chest wall contusion, Contusion of right hip Condition: Stable Critical Care Time: No Referrals: FRANSISCA RAY NP [Primary Care Provider] - Follow up/PCP as directed Prescriptions: Chlorzoxazone 500 mg PO BID #20 tablet
[2024-11-07 15:06] LABS: Absolute Neutrophil Ct (ANC) 4.05 x10^3/uL (1.56-6.13); BASOPHIL % 0.9 % (0.1-1.2); Basophil (Absolute #) 0.07 x10^3/uL (0.01-0.08); Eosinophil % 3.9 % (0.7-5.8); Eosinophil (Absolute #) 0.29 x10^3/uL (0.04-0.36); Hematocrit 37.3 % (34.1-44.9); Hemoglobin 12.4 g/dL (11.2-15.7); IMMATURE GRAN # 0.02 x10^3u/L (0.001-0.031); IMMATURE GRAN % 0.3 % (0.001-0.429); Lymphocyte (Absolute #) 2.28 x10^3/uL (1.18-3.74); Lymphocytes % 30.9 % (19.3-51.7); Mean Cell Volume 95.4 fL (79.4-94.8); Mean Corpuscular Hemoglobin 31.7 pg (25.6-32.2); Mean Corpuscular Hgb Concent. 33.2 g/dL (32.2-35.5); Mean Platelet Volume 9.4 fL (9.4-12.3); Monocyte (Absolute #) 0.67 x10^3/uL (0.24-0.86); Monocytes % 9.1 % (4.7-12.5); Neutrophil % 54.9 % (34.0-71.1); Platelet Count 343 x10^3/uL (182-369); Red Blood Count 3.91 x10^6/uL (3.93-5.22); White Blood Count 7.4 x10^3/uL (3.98-10.04)
[2024-11-07] MEDS ORDERED: BABY ASPIRIN 81 MG CHEW ONE (15:08)
[2024-11-07] MEDS ORDERED: MORPHINE SULFATE 4 MG INJ ONE (15:09)
[2024-11-07] MEDS: BABY ASPIRIN 81 MG CHEW PO ONE (15:11)
[2024-11-07] MEDS: MORPHINE SULFATE 4 MG INJ IV ONE (15:11)
[2024-11-07 15:55] LABS: ALBUMIN 4.1 g/dL (3.5-5.0); ANION GAP 10.1 MEQ/L (5-15); BILIRUBIN,TOTAL 0.2 mg/dL (0.2-1.3); Calcium 9.2 mg/dL (8.4-10.2); Creatinine 1 0.73 mg/dL (0.52-1.04); EST GLOMERULAR FILTRATION RATE 100.8 ML/MIN
--- NOTE | 2024-11-07 17:02 | XRAY ---
Indication: Chest pain following fall. Multiple contiguous axial images obtained through the chest using 100 cc Isovue 370 contrast as ordered. Comparison: March 07, 2021 Lungs again demonstrates minimal bilateral dependent atelectasis. Stable right base calcified granuloma and minimal biapical subpleural cystic changes. No new pulmonary/nodule, infiltrate, effusion, or pneumothorax. Heart not enlarged. Aorta is normal in course and caliber. Stable small mediastinal and left hilar calcified nodes. No pathologic mediastinal/hilar lymphadenopathy. Stable small hiatal hernia. Bony thorax intact again with minimal degenerative changes throughout spine and C7-T1 fusion hardware. CT abdomen/pelvis reported separately. Impression: Again chronic findings including biapical subpleural cystic changes, hiatal hernia, chronic bony findings, and old granulomatous disease. No new/acute findings on this contrasted exam.
--- NOTE | 2024-11-07 17:06 | XRAY ---
Indication: Abdominal pain following fall. Multiple contiguous axial images obtained through the abdomen and pelvis using 100 cc Isovue 370 contrast as ordered. Comparison: July 11, 2024 CT chest reported separately. Noncontrasted stomach and bowel loops appear nonobstructed. There is now mild diffuse scatter colonic fecal debris including rectum. Stable small left renal cyst and splenic calcified granulomas. No free fluid/air. Remaining liver, gallbladder, pancreas, spleen, adrenal glands, kidneys, ureters, bladder, uterus, and aorta are unremarkable. No pathologic retroperitoneal lymphadenopathy. Osseous structures intact again with minimal generative changes throughout the spine and minimal levoscoliosis. Impression: 1. New mild diffuse fecal stasis. 2. Again chronic findings including left renal cyst, chronic bony findings, and old granulomatous disease. 3. No acute findings on this contrasted exam.
[2024-11-07] MEDS ORDERED: Valium 5 MG ONE (18:30)
[2024-11-07] MEDS: Valium 5 MG PO ONE (18:31)
[2024-11-07 18:37] VITALS: PULSE 70
[2024-11-07 18:38] VITALS: BP 120/67; RESP 16
== END 2024-11-07 18:40 | disposition home or self-care (01) ==
LOC: ED 14:17
DX: S20.211A Contusion of right front wall of thorax, initial encounter (principal); S70.01XA Contusion of right hip, initial encounter; W19.XXXA Unspecified fall, initial encounter; R07.9 Chest pain, unspecified; I10 Essential (primary) hypertension; Z79.899 Other long term (current) drug therapy
CPT/HCPCS: 36415; 71260; 74177; 80053; 84484; 85025; 96374; 99284; 99285; J2270; A9270-GY

== ENCOUNTER 2024-11-25 15:21 | Emergency (ER) | payer OTHER ==
--- NOTE | 2024-11-25 15:24 | ERPHSYRPT ---
- History of Present Illness Time Seen by Provider: 11/25/24 15:24 Historian: patient Exam Limitations: no limitations Physician History: This is an obese 49-year-old white female patient of nurse practitioner Monisha who presents to the emergency department with complaints of left side chest pain that radiates into her right arm and down to her right leg. Patient was seen on 11/04/2024 with a complaint of chest pain and she had 2 normal troponin levels and a normal CT scan of the chest. This was approximately 3 weeks ago. She describes the pain as acute and aching. She had shortness of breath yesterday but none today. Patient is a former smoker of cigarettes. Patient has a history of migraine headaches, seizure disorder, hypertension, COPD, degenerative disc disease, fibromyalgia, gastroesophageal reflux disease, bipolar disorder and panic disorder. She states that she is never seen a parking lot chauffeur and has never been diagnosed with coronary artery disease. Timing/Duration: day(s) (2) Quality: aching Location: other (Left anterior chest) Chest Pain Radiation: arm (Right arm and down to the right leg) Severity of Pain-Max: mild Severity of Pain-Current: mild Modifying Factors: Improves With: nothing Associated Symptoms: denies symptoms Prior Chest Pain/Cardiac Workup: no prior chest pain Nitro Today/Relief: no nitro taken today Aspirin Treatment Today: 81 mg x 4, provided by ED Allergies/Adverse Reactions: ca Allergy (Severe, Verified 11/25/24 15:23) Swelling pregabalin [From Lyrica] Allergy (Severe, Verified 11/25/24 15:23) amoxicillin Allergy (Intermediate, Verified 11/25/24 15:23) Rash Penicillins Allergy (Intermediate, Verified 11/25/24 15:23) Rash propoxyphene HCl [From Darvon] Allergy (Intermediate, Verified 11/25/24 15:23) PASS OUT Home Medications: levETIRAcetam [Levetiracetam] 1,000 mg PO BID 02/20/19 [History] Hydroxychloroquine Sulfate 200 mg PO DAILY 02/19/23 [History] Metoprolol Tartrate 25 mg [Lopressor 25MG Tab] 25 mg PO DAILY 07/11/24 [History] Lisinopril 10 mg [Zestril 10 MG] 10 mg PO HS 08/23/24 [History] Hx Tetanus, Diphtheria Vaccination/Date Given: Yes Hx Influenza Vaccination/Date Given: Yes Hx Pneumococcal Vaccination/Date Given: No Travel Risk - Emerging Infectious Disease Are you exhibiting symptoms associated with any current EIDs: No Symptoms: Headaches/Body Aches/ - Review of Systems Constitutional: No Symptoms Eyes: No Symptoms Ears, Nose, & Throat: No Symptoms Respiratory: No Symptoms Cardiac: Chest Pain Abdominal/Gastrointestinal: No Symptoms Genitourinary Symptoms: No Symptoms Musculoskeletal: No Symptoms Skin: No Symptoms Neurological: No Symptoms Psychological: No Symptoms Endocrine: No Symptoms Hematologic/Lymphatic: No Symptoms Immunological/Allergic: No Symptoms All Other Systems: Reviewed and Negative - Past Medical History Pertinent Past Medical History: Yes Neurological History: Migraines, Seizures ENT History: No Pertinent History Cardiac History: Hypertension Respiratory History: COPD Endocrine Medical History: Other Musculoskeletal History: Degenerative Disk Disease, Fibromyalgia GI Medical History: Esophageal Disorder, GERD History: Other Psycho-Social History: Anxiety, Bipolar, Depression, Panic Disorder Female Reproductive Disorders: Abnormal Uterine Bleeding Other Medical History: Lupus, Neuropathy, bipolar 1 schizophrenia, PTSD, kidney stones - Past Surgical History Past Surgical History: Yes Neuro Surgical History: No Pertinent History Cardiac: No Pertinent History Respiratory: No Pertinent History Gastrointestinal: No Pertinent History Genitourinary: No Pertinent History Musculoskeletal: Other Female Surgical History: Section, Tubal Ligation, Other Other Surgical History: ABLATION - TUBAL LIGATION. BILATERAL WRIST SURGERY. PLATE AND TWO SCREWS IN THE BACK OF NECK. 12/26/20 Surgery to back. cadaver bone in neck Significant Family History: no pertinent family hx - Female History Hx Last Menstrual Period: Ablation/tubal - Social History Smoking Status: Former smoker How long have you smoked: 32 yrs Exposure to second hand smoke: Yes Drug Use: none Patient Lives Alone: No - Social Determinants of Health Will the patient participate in the screening: Yes Do you worry about a steady place to live?: No In the past 12 months,have you had to go without utilities?: No Transportation Issues: No Has anyone in your support network made you feel unsafe?: No Have you or anyone in your house had to go without enough: No Comment: PATIENT NOTED DURING CASE MANAGEMENT THAT SHE HAS AN APT TODAY FOR EMERGENCY FOOD STAMPS- CURRENTLY HAS ENOUGH GROCERIES AT HOME - Nursing Vital Signs Nursing Vital Signs: Initial Vital Signs Temperature 97.2 F 11/25/24 15:24 Pulse Rate 84 11/25/24 15:24 Respiratory Rate 14 11/25/24 15:24 Blood Pressure 134/67 11/25/24 15:24 O2 Sat by Pulse Oximetry 99 11/25/24 15:24 Pain Scale Pain Intensity 4 - Physical Exam General Appearance: no apparent distress, alert, anxiety, obese Eye Exam: PERRL/EOMI, eyes nml inspection Ears, Nose, Throat Exam: normal ENT inspection, moist mucous membranes Neck Exam: normal inspection, non-tender, supple, full range of motion Respiratory Exam: normal breath sounds, chest tenderness, lungs clear, airway intact, No respiratory distress Cardiovascular Exam: regular rate/rhythm, normal heart sounds, normal peripheral pulses Gastrointestinal/Abdomen Exam: soft, normal bowel sounds, No tenderness Pelvic Exam: not done Rectal Exam: not done Back Exam: normal inspection, normal range of motion, No CVA tenderness, No vertebral tenderness Extremity Exam: normal inspection, normal range of motion, pelvis stable Neurologic Exam: alert, 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, cooperative, linux system admin II-XII nml as tested, normal mood/affect, nml cerebellar function, nml station & gait, sensation nml Skin Exam: normal color, warm, dry Lymphatic Exam: No adenopathy SpO2 Interpretation: normal O2 Delivery: Room Air - Course Nursing assessment & vital signs reviewed: Yes EKG Interpreted by Me: RATE ([id number]), Sinus Rhythm, NORMAL AXIS, NORMAL INTERVALS, NORMAL QRS, NORMAL ST-T, Other (No acute ischemia on today's twelve-lead EKG. Q Tc is 439) Ordered Tests: Active Orders 24 hr Category Date Time Status Grommet Worker STAT Care 11/25/24 15:40 Active EKG-ER Only STAT Care 11/25/24 15:40 Active CBC W DIFF Stat Lab 11/25/24 15:51 Completed CMP Stat Lab 11/25/24 15:51 Completed MAG [MAGNESIUM] Stat Lab 11/25/24 15:51 Completed TROPONIN Q4H Lab 11/25/24 15:51 Completed TROPONIN Q4H Lab 11/25/24 19:45 Ordered TROPONIN Q4H Lab 11/25/24 23:45 Ordered Medication Summary Discontinued Medications Generic Name Dose Route Start Last Admin Trade Name Freq PRN Reason Stop Dose Admin Hydrocodone Bitart/Acetaminophen 1 tab 11/25/24 16:25 11/25/24 16:33 Hydrocodone/Apap 5/325 1 Tab Tablet PO 11/25/24 16:26 1 tab STAT ONE Administration Hydrocodone Bitart/Acetaminophen Confirm 11/25/24 16:32 Hydrocodone/Apap 5/325 1 Tab Tablet Administered 11/25/24 16:33 Dose 1 tab .ROUTE .STK-MED ONE Aspirin 324 mg 11/25/24 15:40 11/25/24 15:56 Aspirin 81 Mg Tab.Chew PO 11/25/24 15:41 324 mg STAT ONE Administration Aspirin Confirm 11/25/24 15:55 Aspirin 81 Mg Tab.Chew Administered 11/25/24 15:56 Dose 324 mg .ROUTE .STK-MED ONE Lab/Rad Data: Laboratory Result Diagrams 11/25/24 15:51 11/25/24 15:51 Laboratory Results 11/25/24 11/25/24 11/25/24 Range/Units 15:51 15:51 15:51 WBC 7.0 (3.98-10.04) x10^3/uL RBC 4.09 (3.93-5.22) x10^6/uL Hgb 13.2 (11.2-15.7) g/dL Hct 39.8 (34.1-44.9) % MCV 97.3 H (79.4-94.8) fL MCH 32.3 H (25.6-32.2) pg MCHC 33.2 (32.2-35.5) g/dL RDW 13.2 (11.7-14.4) % Plt Count 369 (182-369) x10^3/uL MPV 9.6 (9.4-12.3) fL Gran % 57.1 (34.0-71.1) % Immature Gran % (Auto) 0.3 (0.001-0.429) % Nucleat RBC Rel Count 0.0 (0.00-0.2) % Eos # (Auto) 0.26 (0.04-0.36) x10^3/uL Immature Gran # (Auto) 0.02 (0.001-0.031) x10^3u/L Absolute Lymphs (auto) 2.09 (1.18-3.74) x10^3/uL Absolute Monos (auto) 0.55 (0.24-0.86) x10^3/uL Absolute Nucleated RBC 0.00 (0.00-0.012) x10^3u/L Lymphocytes % 29.9 (19.3-51.7) % Monocytes % 7.9 (4.7-12.5) % Eosinophils % 3.7 (0.7-5.8) % Basophils % 1.1 (0.1-1.2) % Absolute Granulocytes 3.99 (1.56-6.13) x10^3/uL Basophils # 0.08 (0.01-0.08) x10^3/uL Sodium 141 (135-145) mmol/L Potassium 3.9 (3.5-5.1) mmol/L Chloride 107 (98-107) mmol/L Carbon Dioxide 24 (22-30) mmol/L Anion Gap 13.8 (5-15) MEQ/L BUN 15 (7-17) mg/dL Creatinine 0.90 (0.52-1.04) mg/dL Estimated GFR 77.9 ML/MIN Glucose 97 (74-106) mg/dL Calcium 9.6 (8.4-10.2) mg/dL Magnesium 1.9 (1.6-2.3) mg/dL Total Bilirubin 0.40 (0.2-1.3) mg/dL AST 29 (14-36) U/L ALT 25 (0-35) U/L Alkaline Phosphatase 60 (38-126) U/L Troponin I < 0.012 (0.000-0.033) ng/mL Serum Total Protein 7.3 (6.3-8.2) g/dL Albumin 4.6 (3.5-5.0) g/dL - Progress Progress: improved, re-examined Air Movement: good Progress Note: 11/25/24 17:00 My medical decision making and the assignment of moderate complexity to this patient's medical issue today is based on review of the patient's past medical history, review of the patient's medication list, reviewed patient drug allergy list, history present illness and physical findings on examination. The workup in this patient clued twelve-lead EKG, CBC, CMP, magnesium level, troponin level. Within the last few weeks the patient has had nonacute twelve-lead EKG, 2 negative troponin levels and a negative CT scan of the chest for the complaint of chest pain. Patient is at low risk of having significant acute coronary artery disease. Differential diagnosis includes but is not limited to myocardial infarction, electrolyte abnormalities, anxiety about health, arrhythmia 11/25/24 17:42 I interpreted the patient's laboratory data results. Based on the laboratory data results there are no acute, emergent medical issues. Patient's chest pain and symptoms have resolved. Blood Culture(s) Obtained: No Antibiotics given: No Counseled pt/family regarding: lab results, diagnosis, need for follow-up Medical Desision Making - Diagnostic Testing Diagnostic test were ordered, analyzed, and reviewed by me: Yes - Risk of complications Low Risk: Low risk of morbidity from additional dx testing or treatment - Departure Departure Disposition: Home Clinical Impression: Nonspecific chest pain Condition: Stable Critical Care Time: No Referrals: FRANSISCA RAY NP [Primary Care Provider] - Follow up/PCP as directed Additional Instructions: Take all your medications as prescribed. Call your primary care provider on 11/28/2024 to make arrangements for follow-up appointment for further evaluation and management and for referral to parking lot chauffeur.
[2024-11-25 15:25] VITALS: TEMP 97.2
[2024-11-25 15:53] LABS: Absolute Neutrophil Ct (ANC) 3.99 x10^3/uL (1.56-6.13); BASOPHIL % 1.1 % (0.1-1.2); Basophil (Absolute #) 0.08 x10^3/uL (0.01-0.08); Eosinophil % 3.7 % (0.7-5.8); Eosinophil (Absolute #) 0.26 x10^3/uL (0.04-0.36); Hematocrit 39.8 % (34.1-44.9); Hemoglobin 13.2 g/dL (11.2-15.7); IMMATURE GRAN # 0.02 x10^3u/L (0.001-0.031); IMMATURE GRAN % 0.3 % (0.001-0.429); Lymphocyte (Absolute #) 2.09 x10^3/uL (1.18-3.74); Lymphocytes % 29.9 % (19.3-51.7); Mean Cell Volume 97.3 fL (79.4-94.8); Mean Corpuscular Hemoglobin 32.3 pg (25.6-32.2); Mean Corpuscular Hgb Concent. 33.2 g/dL (32.2-35.5); Mean Platelet Volume 9.6 fL (9.4-12.3); Monocyte (Absolute #) 0.55 x10^3/uL (0.24-0.86); Monocytes % 7.9 % (4.7-12.5); Neutrophil % 57.1 % (34.0-71.1); Platelet Count 369 x10^3/uL (182-369); Red Blood Count 4.09 x10^6/uL (3.93-5.22); Red Cell Distribution Width 13.2 % (11.7-14.4)
[2024-11-25] MEDS ORDERED: BABY ASPIRIN 81 MG CHEW ONE (15:55)
[2024-11-25] MEDS: BABY ASPIRIN 81 MG CHEW PO ONE (15:56)
[2024-11-25] MEDS ORDERED: NORCO 5/325 MG ONE (16:32)
[2024-11-25] MEDS: NORCO 5/325 MG PO ONE (16:33)
[2024-11-25 16:55] LABS: ALBUMIN 4.6 g/dL (3.5-5.0); ANION GAP 13.8 MEQ/L (5-15); BILIRUBIN,TOTAL 0.4 mg/dL (0.2-1.3); Calcium 9.6 mg/dL (8.4-10.2); Creatinine 1 0.9 mg/dL (0.52-1.04); EST GLOMERULAR FILTRATION RATE 77.9 ML/MIN; MAGNESIUM 1.9 mg/dL (1.6-2.3); Potassium 3.9 mmol/L (3.5-5.1); Total Protein 7.3 g/dL (6.3-8.2)
[2024-11-25 17:28] VITALS: BP 97/47; PULSE 74; RESP 23; O2SAT 96
== END 2024-11-25 17:54 | disposition home or self-care (01) ==
LOC: ED 15:21
DX: R07.9 Chest pain, unspecified (principal); I10 Essential (primary) hypertension; Z79.899 Other long term (current) drug therapy; Z59.41 Food insecurity
CPT/HCPCS: 36415; 80053; 83735; 84484; 85025; 93005; 93041; 99284; A9270-GY

== ENCOUNTER 2024-12-30 15:18 | Emergency (ER) | payer OTHER ==
[2024-12-30 15:59] VITALS: PULSE 74; TEMP 98.3
--- NOTE | 2024-12-30 16:59 | ERPHSYRPT ---
- History of Present Illness Time Seen by Provider: 12/30/24 16:44 Source: patient Exam Limitations: no limitations Patient Subjective Stated Complaint: pt c/o of having a rash for approx a month but it has gotten worse and is burning now, pt also c/o of a migraine since w aking up this morning Triage Nursing Assessment: Pt was brought to the ER by her , hypertensive, rates pain as 9/10, pulses normal, skin n/w/d, scattered rash on body, migraine, denies difficulty breathing, doesn't appear to be in any distress Physician History: Pt states she has had a migraine headache today and an itchy generalized rash for the past month; denies fever, shortness of air, abdominal pain, vomiting. Pt states she had a normal head CT about 6 months ago. Allergies/Adverse Reactions: ca Allergy (Severe, Verified 12/30/24 15:59) Swelling pregabalin [From Lyrica] Allergy (Severe, Verified 12/30/24 15:59) amoxicillin Allergy (Intermediate, Verified 12/30/24 15:59) Rash Penicillins Allergy (Intermediate, Verified 12/30/24 15:59) Rash propoxyphene HCl [From Darvon] Allergy (Intermediate, Verified 12/30/24 15:59) PASS OUT Home Medications: levETIRAcetam [Levetiracetam] 1,000 mg PO BID 02/20/19 [History] Hydroxychloroquine Sulfate 200 mg PO DAILY 02/19/23 [History] Metoprolol Tartrate 25 mg [Lopressor 25MG Tab] 25 mg PO DAILY 07/11/24 [History] Lisinopril 10 mg [Zestril 10 MG] 10 mg PO HS 08/23/24 [History] Lumateperone Tosylate [Caplyta] 42 mg PO DAILY 12/30/24 [History] Venlafaxine HCl [Effexor Xr] 150 mg PO DAILY 12/30/24 [History] hydrOXYzine pamoate [Hydroxyzine Pamoate] 50 mg PO HS 12/30/24 [History] Hx Tetanus, Diphtheria Vaccination/Date Given: Yes Hx Influenza Vaccination/Date Given: Yes Hx Pneumococcal Vaccination/Date Given: No Travel Risk - International Travel Have you traveled outside of the country in past 3 weeks: No - Emerging Infectious Disease Are you exhibiting symptoms associated with any current EIDs: No Symptoms: Headaches/Body Aches/ - Review of Systems Constitutional: No Fever Respiratory: No Dyspnea Skin: Rash Neurological: Headache - Past Medical History Pertinent Past Medical History: Yes Neurological History: Migraines, Seizures ENT History: No Pertinent History Cardiac History: Hypertension Respiratory History: COPD Endocrine Medical History: Other Musculoskeletal History: Degenerative Disk Disease, Fibromyalgia GI Medical History: Esophageal Disorder, GERD History: Other Psycho-Social History: Anxiety, Bipolar, Depression, Panic Disorder Female Reproductive Disorders: Abnormal Uterine Bleeding Other Medical History: Lupus, Neuropathy, bipolar 1 schizophrenia, PTSD, kidney stones - Past Surgical History Past Surgical History: Yes Neuro Surgical History: No Pertinent History Cardiac: No Pertinent History Respiratory: No Pertinent History Gastrointestinal: No Pertinent History Genitourinary: No Pertinent History Musculoskeletal: Other Female Surgical History: Section, Tubal Ligation, Other Other Surgical History: ABLATION - TUBAL LIGATION. BILATERAL WRIST SURGERY. PLATE AND TWO SCREWS IN THE BACK OF NECK. 12/26/20 Surgery to back. cadaver bone in neck Significant Family History: no pertinent family hx - Female History Hx Last Menstrual Period: Ablation/tubal Hx Now: No - Social History Smoking Status: Former smoker How long have you smoked: vape Exposure to second hand smoke: No Drug Use: none - Social Determinants of Health Will the patient participate in the screening: Yes Do you worry about a steady place to live?: No Do you have any problems with any of the following?: No known problems In the past 12 months,have you had to go without utilities?: No Transportation Issues: No Has anyone in your support network made you feel unsafe?: No Have you or anyone in your house had to go w/o enough food: No Comment: . - Nursing Vital Signs Nursing Vital Signs: Initial Vital Signs O2 Sat by Pulse Oximetry 98 12/30/24 15:51 Pain Scale Pain Intensity 8 - Physical Exam General Appearance: alert Eye Exam: PERRL/EOMI, photophobia Ears, Nose, Throat Exam: TMs normal, pharynx normal Neck Exam: normal inspection Respiratory Exam: lungs clear Cardiovascular Exam: normal heart sounds Gastrointestinal/Abdomen Exam: normal bowel sounds Back Exam: normal inspection Extremity Exam: No pedal edema Neurologic Exam: alert, cooperative Skin Exam: warm, dry SpO2 Interpretation: normal SpO2: 98 O2 Delivery: Room Air - Course Nursing assessment & vital signs reviewed: Yes Ordered Tests: Medication Summary Generic Name Dose Route Start Last Admin Trade Name [place] PRN Reason Stop Dose Admin Promethazine HCl 25 mg/ Sodium 101 mls @ 200 mls/hr 12/30/24 16:56 12/30/24 17:39 Chloride IV 01/29/25 16:55 200 ml/hr Q4H PRN PRN 200 mls/hr UNCONTROLLED NAUSEA Administration Discontinued Medications Generic Name Dose Route Start Last Admin Trade Name Freq PRN Reason Stop Dose Admin Methylprednisolone Sodium 0 mg 12/30/24 16:58 12/30/24 17:12 Succinate 125 mg/ Sterile IV 12/30/24 16:59 125 mg Water 2 ml STAT ONE Administration Hydromorphone HCl 0.5 mg 12/30/24 16:57 12/30/24 17:11 Hydromorphone 1 Mg/1ml Inj IV 12/30/24 16:58 0.5 mg STAT ONE Administration Hydromorphone HCl Confirm 12/30/24 17:08 Hydromorphone 1 Mg/1ml Inj Administered 12/30/24 17:09 Dose 1 mg .ROUTE .STK-MED ONE Hydromorphone HCl 0.5 mg 12/30/24 18:12 Hydromorphone 1 Mg/1ml Inj IV 12/30/24 18:13 STAT ONE Methylprednisolone Sodium Succinate Confirm 12/30/24 17:08 Methylprednis Sod Succ 125 Mg/2 Ml Vial Administered 12/30/24 17:09 Dose 125 mg .ROUTE .STK-MED ONE Sterile Water Confirm 12/30/24 17:08 Water For Injection,Sterile 10 Ml Vial Administered 12/30/24 17:09 Dose 10 ml IJ .STK-MED ONE - Progress Progress: improved Progress Note: 12/30/24 17:16 Pt given Rx for atarax 50mg tabs #24 to take one every 4 hours for itching. Pt given Rx for a Medrol Dose Pack. Pt urged to make an appointment with an appliance adjuster. Counseled pt/family regarding: diagnosis, need for follow-up - Departure Departure Disposition: Home Clinical Impression: Migraine, Rash Condition: Stable Critical Care Time: No Referrals: CORY,FRANSISCA SILVIA, GRADING MACHINE FEEDER [Primary Care Provider] - Follow up/PCP as directed Instructions: Poison jh, Migraine in adults
[2024-12-30] MEDS ORDERED: solu-MEDROL ONE (17:08)
[2024-12-30] MEDS ORDERED: Sterile H2O 10 ml IJ ONE (17:08)
[2024-12-30] MEDS ORDERED: Hydromorphone 1 mg/ml Injection ONE ×2 (17:08→18:46)
[2024-12-30] MEDS: Hydromorphone 1 mg/ml Injection IV ONE ×2 (17:11→18:48)
[2024-12-30] MEDS: solu-MEDROL 125 MG, Sterile H2O 10 ml 2 ML IV ONE (17:12)
[2024-12-30] MEDS: Phenergan 25 MG INJ*** 25 MG in Sodium Chloride 0.9% 100 ML IV PRN (17:39)
[2024-12-30 18:54] VITALS: BP 166/98; O2SAT 97
== END 2024-12-30 18:57 | disposition home or self-care (01) ==
LOC: ED 15:18
DX: G43.909 Migraine, unspecified, not intractable, without status migrainosus (principal); R21 Rash and other nonspecific skin eruption; I10 Essential (primary) hypertension; Z79.899 Other long term (current) drug therapy
CPT/HCPCS: 96361; 96365; 96374; 96375; 96376; 99283; 99284; J1171; J2550; J2919

== ENCOUNTER 2025-01-05 19:05 | Emergency (ER) | payer OTHER ==
[2025-01-05 19:22] VITALS: RESP 18; TEMP 97.8; O2SAT 96
[2025-01-05] MEDS ORDERED: TORAdol 30 mg Injection ONE (19:36)
[2025-01-05] MEDS: TORAdol 30 mg Injection IM ONE (19:37)
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
[2025-01-05 20:11] VITALS: BP 128/66; PULSE 95
--- NOTE | 2025-01-06 07:51 | XRAY ---
Indication: Pain following injury. Comparison: August 02, 2021 3 nonweightbearing views left foot demonstrates stable tiny heel spurs. No new/acute bony, articular, or soft tissue abnormalities.
== END 2025-01-05 20:17 | disposition home or self-care (01) ==
LOC: ED 19:05
DX: S90.121A Contusion of right lesser toe(s) without damage to nail, initial encounter (principal); W20.8XXA Other cause of strike by thrown, projected or falling object, initial encounter; Y92.512 Supermarket, store or market as the place of occurrence of the external cause; I10 Essential (primary) hypertension; Z79.899 Other long term (current) drug therapy
CPT/HCPCS: 73630; 96372; 99283; J1885

== ENCOUNTER 2025-01-29 14:00 | Emergency (ER) | payer OTHER ==
--- NOTE | 2025-01-29 14:03 | ERPHSYRPT ---
- History of Present Illness Time Seen by Provider: 01/29/25 14:03 Source: patient, family Exam Limitations: no limitations Physician History: This is an overweight 49-year-old white female patient of nurse practitioner Monisha who arrives to the emergency department with right eye pain. Specifically, she states that she has pain and swelling under her lower eyelid on the right side. 2 days ago, she was mushroom hunting. Yesterday she had blisters and the area under her right eyelid had redness and swelling that has persisted today. She also complains of right side headache. Patient was given a prescription for 3 different medications and they include acyclovir, Keflex orally, and ofloxacin ophthalmic eyedrops. She was given a single injection of steroids intramuscularly yesterday. Patient has multiple medical problems including migraine headaches, seizure disorder, hypertension, COPD, degenerative disc disease, fibromyalgia, gastroesophageal reflux disease, anxiety, PTSD and bipolar disorder. She has no vision changes. Timing/Duration: today Location: right eye Severity: mild Apparent Injury: no Associated Symptoms: pain, other (Periorbital redness and swelling.), No decreased vision, No blurred vision Visual Assistive Devices: None Chemical Exposure: No Trauma: No Welding Arc/Tanning Bed Exposure: No Allergies/Adverse Reactions: ca Allergy (Severe, Verified 01/29/25 14:16) Swelling pregabalin [From Lyrica] Allergy (Severe, Verified 01/29/25 14:16) amoxicillin Allergy (Intermediate, Verified 01/29/25 14:16) Rash Penicillins Allergy (Intermediate, Verified 01/29/25 14:16) Rash propoxyphene HCl [From Darvon] Allergy (Intermediate, Verified 01/29/25 14:16) PASS OUT Home Medications: levETIRAcetam [Levetiracetam] 1,000 mg PO BID 02/20/19 [History] Hydroxychloroquine Sulfate 200 mg PO DAILY 02/19/23 [History] Metoprolol Tartrate 25 mg [Lopressor 25MG Tab] 25 mg PO DAILY 07/11/24 [History] Lisinopril 10 mg [Zestril 10 MG] 10 mg PO HS 08/23/24 [History] Lumateperone Tosylate [Caplyta] 42 mg PO DAILY 12/30/24 [History] Venlafaxine HCl [Effexor Xr] 150 mg PO DAILY 12/30/24 [History] hydrOXYzine pamoate [Hydroxyzine Pamoate] 50 mg PO HS 12/30/24 [History] Hx Tetanus, Diphtheria Vaccination/Date Given: Yes Hx Influenza Vaccination/Date Given: Yes Hx Pneumococcal Vaccination/Date Given: No Travel Risk - International Travel Have you traveled outside of the country in past 3 weeks: No - Emerging Infectious Disease Are you exhibiting symptoms associated with any current EIDs: No Symptoms: Headaches/Body Aches/ - Review of Systems Constitutional: No Symptoms Eyes: Eye Pain (Side), Tearing, Other (Redness swelling present under the right eyelid), No Vision Changes, No Double Vision, No Foreign Body Sensation Ears, Nose, & Throat: No Symptoms Respiratory: No Symptoms Cardiac: No Symptoms Abdominal/Gastrointestinal: No Symptoms Genitourinary Symptoms: No Symptoms Musculoskeletal: No Symptoms Skin: No Symptoms Neurological: No Symptoms Psychological: No Symptoms Endocrine: No Symptoms Hematologic/Lymphatic: No Symptoms Immunological/Allergic: No Symptoms All Other Systems: Reviewed and Negative - Past Medical History Pertinent Past Medical History: Yes Neurological History: Migraines, Seizures ENT History: No Pertinent History Cardiac History: Hypertension Respiratory History: COPD Endocrine Medical History: Other Musculoskeletal History: Degenerative Disk Disease, Fibromyalgia GI Medical History: Esophageal Disorder, GERD History: Other Psycho-Social History: Anxiety, Bipolar, Depression, Panic Disorder Female Reproductive Disorders: Abnormal Uterine Bleeding Other Medical History: Lupus, Neuropathy, bipolar 1 schizophrenia, PTSD, kidney stones - Past Surgical History Past Surgical History: Yes Neuro Surgical History: No Pertinent History Cardiac: No Pertinent History Respiratory: No Pertinent History Gastrointestinal: No Pertinent History Genitourinary: No Pertinent History Musculoskeletal: Other Female Surgical History: Section, Tubal Ligation, Other Other Surgical History: ABLATION - TUBAL LIGATION. BILATERAL WRIST SURGERY. PLATE AND TWO SCREWS IN THE BACK OF NECK. 12/26/20 Surgery to back. cadaver bone in neck Significant Family History: no pertinent family hx - Female History Hx Last Menstrual Period: Ablation/tubal - Social History Smoking Status: Former smoker How long have you smoked: vape Exposure to second hand smoke: No Drug Use: none - Social Determinants of Health Will the patient participate in the screening: Yes Do you worry about a steady place to live?: No In the past 12 months,have you had to go without utilities?: No Transportation Issues: No Has anyone in your support network made you feel unsafe?: No Have you or anyone in your house had to go w/o enough food: No - Nursing Vital Signs Nursing Vital Signs: Initial Vital Signs Temperature 98.0 F 01/29/25 14:22 Pulse Rate 75 01/29/25 14:22 Respiratory Rate 18 01/29/25 14:22 Blood Pressure 132/94 01/29/25 14:22 O2 Sat by Pulse Oximetry 98 01/29/25 14:22 Pain Scale Pain Intensity 5 - Physical Exam Eye Exam: bilateral eye: normal inspection, PERRL, EOMI, other (No evidence of conjunctivitis on either side) Ears, Nose, Throat Exam: pharynx normal, moist mucous membranes Neck Exam: normal inspection, non-tender, supple, full range of motion Respiratory Exam: No chest tenderness, No respiratory distress, No airway intact Gastrointestinal Exam: No tenderness Extremity Exam: normal inspection, normal range of motion, pelvis stable Neurologic: alert, 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, cooperative, manager corporate communications II-XII nml as tested, nml cerebellar function, nml station & gait, sensation nml Skin Exam: normal color, warm, dry Lymphatic: No adenopathy SpO2 Interpretation: normal O2 Delivery: Room Air - Course Nursing assessment & vital signs reviewed: Yes Ordered Tests: Active Orders 24 hr Category Date Time Status HEAD WITHOUT CONTRAST [CT] Stat Exams 01/29/25 14:49 Completed ORBITS WITHOUT CONTRAST [CT] Stat Exams 01/29/25 14:52 Completed Medication Summary Discontinued Medications Generic Name Dose Route Start Last Admin Trade Name Manish PRN Reason Stop Dose Admin Hydromorphone HCl 1 mg 01/29/25 14:38 01/29/25 15:09 Hydromorphone 1 Mg/1ml Inj IM 01/29/25 14:39 1 mg STAT ONE Administration Hydromorphone HCl Confirm 01/29/25 15:01 Hydromorphone 1 Mg/1ml Inj Administered 01/29/25 15:02 Dose 1 mg .ROUTE .STK-MED ONE Ondansetron HCl 4 mg 01/29/25 14:38 01/29/25 15:08 Zofran 4 Mg/Udtablet Orally Disintegrating PO 01/29/25 14:39 4 mg STAT ONE Administration Ondansetron HCl Confirm 01/29/25 15:01 Zofran 4 Mg/Udtablet Orally Disintegrating Administered 01/29/25 15:02 Dose 4 mg .ROUTE .STK-MED ONE - Progress Progress: unchanged Progress Note: 01/29/25 14:41 My medical decision making and the assignment of low to moderate complexity is based on review of the patient's past medical history, review the patient's medication list, reviewed patient drug allergy list, history present illness and physical findings on examination. The workup in this patient includes providing the patient with intramuscular Dilaudid 1 mg, oral Zofran 4 mg ODT, CT scan of the orbits and CT scan of the head. Differential diagnosis includes but is not limited to periorbital infection, allergic reaction, contact dermatitis 01/29/25 16:[address] scans were interpreted by the radiologist and I reviewed the impression. The CT scan of the orbits without contrast show normal CT scan of the orbits. There is mild subcutaneous thickening and edema in the right forehead/eyebrow region. No sizable mass. CT scan of the head without contrast shows no hemorrhage and no infarction. There are no skull fractures. In addition there is the finding of mild subcutaneous thickening and edema in the right forehead and eyebrow region no sizable masses present. These findings were discussed in detail with the patient. 01/29/25 16:07 Counseled pt/family regarding: diagnosis, need for follow-up, rad results Medical Desision Making - Diagnostic Testing Diagnostic test were ordered, analyzed, and reviewed by me: Yes Radiological Interpretation: Reviewed by me, Teleradiologist Report - Risk of complications Low Risk: Low risk of morbidity from additional dx testing or treatment - Departure Departure Disposition: Home Clinical Impression: Swelling of right lower eyelid, Swelling of right upper eyelid Condition: Stable Critical Care Time: No Referrals: FRANSISCA RAY NP [Primary Care Provider] - Follow up/PCP as directed Additional Instructions: Cool or warm compresses to right thigh area 3 times a day for the next 3 days. Use whichever improves your pain. Keep your appointment with your primary care provider scheduled for 01/31/2025. Take Benadryl 25 mg orally 3 times a day for the next 4 to 5 days. Take 20 mg of Pepcid orally daily for the next 5 days. Continue your other medications including those you received yesterday, 01/28/2025.
[2025-01-29 14:23] VITALS: TEMP 98
[2025-01-29] MEDS ORDERED: Hydromorphone 1 mg/ml Injection ONE (15:01)
[2025-01-29] MEDS ORDERED: ZOFRAN ODT 4 MG ONE (15:01)
[2025-01-29] MEDS: ZOFRAN ODT 4 MG PO ONE (15:08)
[2025-01-29] MEDS: Hydromorphone 1 mg/ml Injection IM ONE (15:09)
--- NOTE | 2025-01-29 15:57 | XRAY ---
CLINICAL HISTORY: Headache; right eye pain/swelling COMPARISON: 04/23/2024. TECHNIQUE: Axial non-contrast CT scan of the orbits was performed. Coronal and sagittal reconstructive images were obtained. One of the following dose reduction techniques was utilized for this exam: Automated exposure control, adjustment of the mA and/or kV according to patient size, and use of iterative reconstruction. FINDINGS: Orbits: Orbits are regular in size and shape. Extraocular muscles are normal in size and position. The optic nerves are normal in size and course. No evidence of proptosis or enophthalmos. Globe: Globes are normal in size and shape. No evidence of intraocular masses or foreign bodies. Lens appears normal without evidence of dislocation or cataract. Lacrimal Apparatus: Lacrimal glands are normal in size and appearance. No evidence of lacrimal duct obstruction or enlargement. Sinuses: Minimal mucosal thickening of the right maxillary sinus. There is a mild deviation of the nasal septum to the right side with a right-sided spine. Bony Structures: Orbital bhatt are intact without fractures. No bony erosions or lesions. Normal appearance of the visualized portions of the skull base. Soft Tissues: There is mild skin-subcutaneous thickening/edema in the left forehead /eyebrow with no sizable masses. Normal appearance of the periorbital soft tissues. No abnormal masses, swelling, or fluid collections. IMPRESSION: 1. Normal CT of the orbits without contrast. 2. There is mild subcutaneous thickening/edema in the left forehead/eyebrow with no sizable masses. Interval new finding. 3. Minimal mucosal thickening of the right maxillary sinus. Electronically Signed by: Nicolasa Romano MD. (01/29/2025 15:53:37 EDT)
--- NOTE | 2025-01-29 15:59 | XRAY ---
CLINICAL HISTORY: Headache; right eye pain/swelling COMPARISON: 04/23/2024. TECHNIQUE: Axial non-contrast CT scan of the brain was performed from the skull base to the high parietal region. One of the following dose reduction techniques were utilized for this exam: Automated exposure control, adjustment of the mA and/or kV according to patient size, use of iterative reconstruction. FINDINGS: Brain Parenchyma: Normal attenuation of the cerebral hemispheres, cerebellum, and brainstem. No evidence of acute infarct, hemorrhage, or mass effect. No abnormal areas of hypo- or hyperattenuation. Ventricular System: Ventricles are normal in size and configuration. No evidence of hydrocephalus or ventricular enlargement. Subarachnoid Spaces: Normal sulci and cisterns. No evidence of subarachnoid hemorrhage or extra-axial fluid collections. Cerebellum and Brainstem: Normal size and signal. No masses, lesions, or areas of abnormal signal. Orbits: Normal appearance of the globes, optic nerves, and extraocular muscles. No evidence of orbital masses or abnormal signals. Sinuses: Minimal mucosal thickening of the right maxillary sinus There is a mild deviation of the nasal septum to the right side with a right-sided spine. Mastoid Air Cells: Clear mastoid air cells. No evidence of mastoiditis. Skull: There is mild skin-subcutaneous thickening/edema in the left forehead /eyebrow with no sizable masses. Normal skull morphology. IMPRESSION: 1. No CT signs of acute hemorrhage or infarction 2. No CT signs of fractures. 3. There is mild skin-subcutaneous thickening/edema in the left forehead /eyebrow with no sizable masses. Interval new finding. 4. Minimal mucosal thickening of the right maxillary sinus. Electronically Signed by: Nicolasa Romano MD. (01/29/2025 15:55:24 EDT)
[2025-01-29 16:22] VITALS: BP 158/98; PULSE 80; RESP 15; O2SAT 100
== END 2025-01-29 16:31 | disposition home or self-care (01) ==
LOC: ED 14:00
DX: R22.0 Localized swelling, mass and lump, head (principal); H57.11 Ocular pain, right eye; R51.9 Headache, unspecified; I10 Essential (primary) hypertension; Z79.899 Other long term (current) drug therapy
CPT/HCPCS: 70450; 70480; 96372; 99284; J1171; Q0162

== ENCOUNTER 2025-02-12 11:58 | Emergency (ER) | payer OTHER ==
[2025-02-12] MEDS ORDERED: XYLOCAINE 1% HCL 20 ML MDV IJ ONE (11:59)
[2025-02-12 12:17] VITALS: TEMP 96.8
--- NOTE | 2025-02-12 12:28 | ERPHSYRPT ---
- History of Present Illness Time Seen by Provider: 02/12/25 12:26 Historian: patient Exam Limitations: no limitations Patient Subjective Stated Complaint: pt here for pain to abd today, URQ, with some vomiting. she states she was working out in garden when it happened. she states she was lightheaded before she vomited Triage Nursing Assessment: pt alert crying at times. walked in, resp easy, skin w/d/p. abd soft, BS x4, no edema noted Physician History: pt here for pain to abdomen today, Upper right quadrant area, with some vomiting. she states she was working out in garden when it happened. she states she was lightheaded before she vomited Timing/Duration: today Activities at Onset: activity Abdominal Pain Onset Location: RUQ Pain Radiation: no radiation Severity of Pain-Max: moderate Severity of Pain-Current: moderate Modifying Factors: Improves With: nothing Associated Symptoms: vomiting, weakness, other (dizziness), No chest pain, No diaphoresis, No diarrhea, No fever/chills, No fatigue, No loss of appetite, No nausea, No shortness of breath, No syncope Allergies/Adverse Reactions: ca Allergy (Severe, Verified 02/12/25 12:05) Swelling pregabalin [From Lyrica] Allergy (Severe, Verified 02/12/25 12:05) amoxicillin Allergy (Intermediate, Verified 02/12/25 12:05) Rash Penicillins Allergy (Intermediate, Verified 02/12/25 12:05) Rash propoxyphene HCl [From Darvon] Allergy (Intermediate, Verified 02/12/25 12:05) PASS OUT Home Medications: levETIRAcetam [Levetiracetam] 1,000 mg PO BID 02/20/19 [History] Hydroxychloroquine Sulfate 200 mg PO DAILY 02/19/23 [History] Metoprolol Tartrate 25 mg [Lopressor 25MG Tab] 25 mg PO DAILY 07/11/24 [History] Lisinopril 10 mg [Zestril 10 MG] 10 mg PO HS 08/23/24 [History] Lumateperone Tosylate [Caplyta] 42 mg PO DAILY 12/30/24 [History] Venlafaxine HCl [Effexor Xr] 150 mg PO DAILY 12/30/24 [History] hydrOXYzine pamoate [Hydroxyzine Pamoate] 50 mg PO HS 12/30/24 [History] Hx Tetanus, Diphtheria Vaccination/Date Given: Yes Hx Influenza Vaccination/Date Given: Yes Hx Pneumococcal Vaccination/Date Given: No Immunizations Up to Date: Yes Travel Risk - International Travel Have you traveled outside of the country in past 3 weeks: No - Emerging Infectious Disease Are you exhibiting symptoms associated with any current EIDs: Yes Symptoms: Vomitting - Review of Systems Constitutional: No Fever, No Chills Eyes: No Symptoms Ears, Nose, & Throat: No Symptoms Respiratory: No Cough, No Dyspnea Cardiac: No Chest Pain, No Edema, No Syncope Abdominal/Gastrointestinal: Abdominal Pain, Vomiting, No Nausea, No Diarrhea, No Constipation, No Hematemesis, No Hematochezia, No Melena, No Dysphagia, No Appetite Changes Genitourinary Symptoms: No Dysuria Musculoskeletal: No Back Pain, No Neck Pain Skin: No Rash Neurological: No Dizziness, No Focal Weakness, No Sensory Changes Psychological: No Symptoms Endocrine: No Symptoms All Other Systems: Reviewed and Negative - Past Medical History Pertinent Past Medical History: Yes Neurological History: Migraines, Seizures ENT History: No Pertinent History Cardiac History: Hypertension Respiratory History: COPD Endocrine Medical History: Other Musculoskeletal History: Degenerative Disk Disease, Fibromyalgia GI Medical History: Esophageal Disorder, GERD History: Other Psycho-Social History: Anxiety, Bipolar, Depression, Panic Disorder Female Reproductive Disorders: Abnormal Uterine Bleeding Other Medical History: Lupus, Neuropathy, bipolar 1 schizophrenia, PTSD, kidney stones - Past Surgical History Past Surgical History: Yes Neuro Surgical History: No Pertinent History Cardiac: No Pertinent History Respiratory: No Pertinent History Gastrointestinal: No Pertinent History Genitourinary: No Pertinent History Musculoskeletal: Other Female Surgical History: Section, Tubal Ligation, Other Other Surgical History: ABLATION - TUBAL LIGATION. BILATERAL WRIST SURGERY. PLATE AND TWO SCREWS IN THE BACK OF NECK. 12/26/20 Surgery to back. cadaver bone in neck Significant Family History: no pertinent family hx - Female History Hx Last Menstrual Period: Ablation/tubal Hx Now: No - Social History Smoking Status: Former smoker How long have you smoked: vape Exposure to second hand smoke: No Drug Use: none - Social Determinants of Health Will the patient participate in the screening: Yes Do you worry about a steady place to live?: No Do you have any problems with any of the following?: No known problems In the past 12 months,have you had to go without utilities?: No Transportation Issues: No Has anyone in your support network made you feel unsafe?: No Have you or anyone in your house had to go w/o enough food: No - Nursing Vital Signs Nursing Vital Signs: Initial Vital Signs Temperature 96.8 F 02/12/25 12:16 Pulse Rate 89 02/12/25 12:16 Respiratory Rate 18 02/12/25 12:16 Blood Pressure 155/98 02/12/25 12:16 O2 Sat by Pulse Oximetry 98 02/12/25 12:16 Pain Scale Pain Intensity 3 - Physical Exam General Appearance: no apparent distress, alert Eye Exam: PERRL/EOMI, eyes nml inspection Ears, Nose, Throat Exam: normal ENT inspection, pharynx normal, moist mucous membranes Neck Exam: normal inspection, non-tender, supple, full range of motion Respiratory Exam: normal breath sounds, lungs clear, No respiratory distress Cardiovascular Exam: regular rate/rhythm, normal heart sounds Gastrointestinal/Abdomen Exam: soft, No tenderness, No mass Back Exam: normal inspection, normal range of motion, No CVA tenderness, No vertebral tenderness Extremity Exam: normal inspection, normal range of motion, pelvis stable Neurologic Exam: alert, 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, cooperative, normal mood/affect, nml cerebellar function, sensation nml, No motor deficits Skin Exam: normal color, warm, dry SpO2 Interpretation: normal SpO2: 98 O2 Delivery: Room Air - Course Nursing assessment & vital signs reviewed: Yes Ordered Tests: Active Orders 24 hr Category Date Time Status AMYLASE Stat Lab 02/12/25 12:58 Completed CBC W DIFF Stat Lab 02/12/25 12:58 Completed CMP Stat Lab 02/12/25 12:58 Completed LIPASE Stat Lab 02/12/25 12:58 Completed UA W/RFX UR CULTURE Stat Lab 02/12/25 13:26 Completed Medication Summary Discontinued Medications Generic Name Dose Route Start Last Admin Trade Name Freq PRN Reason Stop Dose Admin Ceftriaxone Sodium 1,000 mg 02/12/25 14:32 Ceftriaxone Sodium 1000 Mg Inj Vial IM 02/12/25 14:33 STAT ONE Ketorolac Tromethamine 60 mg 02/12/25 14:33 Ketorolac Tromethamine 30 Mg/Ml Inj IM 02/12/25 14:34 STAT ONE Ondansetron HCl 4 mg 02/12/25 12:22 02/12/25 12:30 Zofran 4 Mg/Udtablet Orally Disintegrating PO 02/12/25 12:23 4 mg STAT ONE Administration Ondansetron HCl Confirm 02/12/25 12:29 Zofran 4 Mg/Udtablet Orally Disintegrating Administered 02/12/25 12:30 Dose 4 mg .ROUTE .STK-MED ONE Lab/Rad Data: Laboratory Result Diagrams 02/12/25 12:58 02/12/25 12:58 Laboratory Results 02/12/25 02/12/25 02/12/25 Range/Units 13:26 12:58 12:58 WBC 12.9 H (3.98-10.04) x10^3/uL RBC 4.23 (3.93-5.22) x10^6/uL Hgb 13.7 (11.2-15.7) g/dL Hct 39.6 (34.1-44.9) % MCV 93.6 (79.4-94.8) fL MCH 32.4 H (25.6-32.2) pg MCHC 34.6 (32.2-35.5) g/dL RDW 12.8 (11.7-14.4) % Plt Count 338 (182-369) x10^3/uL MPV 9.4 (9.4-12.3) fL Gran % 82.6 H (34.0-71.1) % Immature Gran % (Auto) 0.2 (0.001-0.429) % Nucleat RBC Rel Count 0.0 (0.00-0.2) % Eos # (Auto) 0.08 (0.04-0.36) x10^3/uL Immature Gran # (Auto) 0.03 (0.001-0.031) x10^3u/L Absolute Lymphs (auto) 1.27 (1.18-3.74) x10^3/uL Absolute Monos (auto) 0.78 (0.24-0.86) x10^3/uL Absolute Nucleated RBC 0.00 (0.00-0.012) x10^3u/L Lymphocytes % 9.9 L (19.3-51.7) % Monocytes % 6.1 (4.7-12.5) % Eosinophils % 0.6 L (0.7-5.8) % Basophils % 0.6 (0.1-1.2) % Absolute Granulocytes 10.62 H (1.56-6.13) x10^3/uL Basophils # 0.08 (0.01-0.08) x10^3/uL Sodium 141 (135-145) mmol/L Potassium 3.7 (3.5-5.1) mmol/L Chloride 106 (98-107) mmol/L Carbon Dioxide 27 (22-30) mmol/L Anion Gap 12.3 (5-15) MEQ/L BUN 21 H (7-17) mg/dL Creatinine 0.75 (0.52-1.04) mg/dL Estimated GFR 96.9 ML/MIN Glucose 105 (74-106) mg/dL Calcium 9.3 (8.4-10.2) mg/dL Total Bilirubin 0.60 (0.2-1.3) mg/dL AST 28 (14-36) U/L ALT 15 (0-35) U/L Alkaline Phosphatase 70 (38-126) U/L Serum Total Protein 7.5 (6.3-8.2) g/dL Albumin 4.6 (3.5-5.0) g/dL Amylase 58 (30-110) U/L Lipase 108 (23-300) U/L Urine Color Yellow (Yellow) Urine Appearance Clear (Clear) Urine pH 6.5 (4.6-8.0) Ur Specific [place] 1.025 (1.005-1.030) Urine Protein Trace A (Negative) Urine Glucose (UA) Negative (Negative) mg/dL Urine Ketones Trace A (Negative) Urine Blood Negative (Negative) Urine Nitrite Negative (Negative) Urine Bilirubin Negative (Negative) Urine Urobilinogen 1.0 A (0.2) mg/dL Ur Leukocyte Esterase Negative (Negative) U Hyaline Cast (Auto) NONE SEEN (0-2) /LPF Urine Microscopic RBC 6-10 A (0-5) /HPF Urine Microscopic WBC 11-20 A (0-5) /HPF Ur Epithelial Cells Moderate A (None Seen) /HPF Urine Bacteria Few A (None Seen) /HPF Urine Culture Reflexed NO (NO) - Progress Progress: improved, pain not gone completely Counseled pt/family regarding: lab results, diagnosis, need for follow-up Medical Desision Making - Risk of complications Low Risk: Low risk of morbidity from additional dx testing or treatment - Departure Departure Disposition: Home Clinical Impression: UTI (urinary tract infection) Qualifiers: Urinary tract infection type: acute cystitis Hematuria presence: without hematuria Qualified Code(s): N30.00 - Acute cystitis without hematuria Abdominal pain Qualifiers: Abdominal location: lower abdomen, unspecified Qualified Code(s): R10.30 - Lower abdominal pain, unspecified Vomiting Qualifiers: Vomiting type: unspecified Nausea presence: without nausea Qualified Code(s): R 11.11 - Vomiting without nausea Condition: Stable Critical Care Time: No Referrals: FRANSISCA RAY NP [Primary Care Provider, [facility]] - Follow up/PCP as directed Instructions: Urinary tract infections in adults, Urinary tract infection - Discharge instructions, Abdominal pain in adults - Discharge instructions, Abdominal pain in adults - ED discharge instructions, Abdominal pain Additional Instructions: Discharge/Care Plan CESAR AGUSTIN was seen on 02/12/25 in the Emergency Room. The patient was counseled regarding Diagnosis,Lab results, Imaging studies, need for follow up and when to return to the Emergency Room. Prescriptions given: Discharge Note I have spoken with the patient and/or caregivers. I have explained the patient's condition, diagnosis and treatment plan based on the information available to me at this time. I have answered the patient's and/or caregiver's questions and addressed any concerns. The patient and/or caregivers have as good understanding of the patient's diagnosis, condition and treatment plan as can be expected at this point. The vital signs have been stable. The patient's condition is stable and appropriate for discharge from the emergency department. The patient will pursue further outpatient evaluation with the primary care physician or other designated or consulting physician as outlined in the discharge instructions. The patient and/or caregivers are agreeable to this plan of care and follow-up instructions have been explained in detail. The patient and/or caregivers have received these instruction. The patient/and or caregivers are aware that any significant change in condition or worsening of symptoms should prompt an immediate return to this or the closest emergency department or call 911. CESAR AGUSTIN was seen on 02/12/25 n the Emergency Room. At that time you were treated for an emergent condition, during your visit Laboratory, Radiology and/or other procedures may have been ordered. It is very important that you follow-up with your Primary Care Physician FRANSISCA RAY within the next 24-48 hours to review your Emergency Room visit and the final results of testing that was ordered. Some test results such as Urine Cultures, Blood Cultures, and other cultures if ordered will not be finalized for 24-48 hours. If you do not have a Primary Care Provider please call the medical records department at [phone] ext [phone] to obtain a copy of your results or you may sign into our patient portal to obtain these results by visiting us @ [email or web address] and completing the following steps: 1. Click on the Patient Portal link 2. Click the Patient Self Enrollment Link to complete the enrollment form and entering your 3. Once the enrollment form is completed you will receive an email with a temporary ID and password at the email address you provided. 4. Next choose a user name and password. Your user name must be at least 4 characters long and your password must be at least 4 characters long. 5. Choose a security question from the list and provide your answer to the question. If you already have signed into the Health Portal you may access your Health Care Information 11/05 by the following steps: 1. Login to our website @ [email or web address] 2. Enter your original user name and password. FAQS The [facility] Portal is an online tool that contains your Lab Results, Radiology Reports, Visit History, Discharge Instructions and Health Summary Lab and Radiology Results will not be available for 72 hours on the portal. The Portal is a secure site, passwords are encryted and URLs are re-written so they cannot be copied and pasted. You and authorized family members are the only ones who can access your Portal. Also there is a timeout feature that protects your information if you leave the Portal page open. If you have technical difficulty please use the Contact Us link on the page this will allow you to submit any questions you have regarding the Portal or you may contact the Medical Record Department at [phone]. Prescriptions: Ciprofloxacin [Cipro 500 MG] 500 mg PO BIDAC #14 tablet Ondansetron ODT 4 MG [Zofran Odt 4 mg] 4 mg PO Q6H PRN PRN #20 tablet PRN Reason: Nausea/Vomiting
[2025-02-12] MEDS ORDERED: ZOFRAN ODT 4 MG ONE (12:29)
[2025-02-12] MEDS: ZOFRAN ODT 4 MG PO ONE (12:30)
[2025-02-12 13:00] LABS: Absolute Neutrophil Ct (ANC) 10.62 x10^3/uL (1.56-6.13); BASOPHIL % 0.6 % (0.1-1.2); Basophil (Absolute #) 0.08 x10^3/uL (0.01-0.08); Eosinophil % 0.6 % (0.7-5.8); Eosinophil (Absolute #) 0.08 x10^3/uL (0.04-0.36); Hematocrit 39.6 % (34.1-44.9); Hemoglobin 13.7 g/dL (11.2-15.7); IMMATURE GRAN # 0.03 x10^3u/L (0.001-0.031); IMMATURE GRAN % 0.2 % (0.001-0.429); Lymphocyte (Absolute #) 1.27 x10^3/uL (1.18-3.74); Lymphocytes % 9.9 % (19.3-51.7); Mean Cell Volume 93.6 fL (79.4-94.8); Mean Corpuscular Hemoglobin 32.4 pg (25.6-32.2); Mean Corpuscular Hgb Concent. 34.6 g/dL (32.2-35.5); Mean Platelet Volume 9.4 fL (9.4-12.3); Monocyte (Absolute #) 0.78 x10^3/uL (0.24-0.86); Monocytes % 6.1 % (4.7-12.5); Neutrophil % 82.6 % (34.0-71.1); Platelet Count 338 x10^3/uL (182-369); Red Blood Count 4.23 x10^6/uL (3.93-5.22); Red Cell Distribution Width 12.8 % (11.7-14.4); White Blood Count 12.9 x10^3/uL (3.98-10.04)
[2025-02-12 13:12] LABS: ALBUMIN 4.6 g/dL (3.5-5.0); ANION GAP 12.3 MEQ/L (5-15); BILIRUBIN,TOTAL 0.6 mg/dL (0.2-1.3); Calcium 9.3 mg/dL (8.4-10.2); Creatinine 1 0.75 mg/dL (0.52-1.04); EST GLOMERULAR FILTRATION RATE 96.9 ML/MIN; Potassium 3.7 mmol/L (3.5-5.1); Total Protein 7.5 g/dL (6.3-8.2)
[2025-02-12 13:55] LABS: Appearance Clear (Clear); Bacteria Few /HPF (None Seen); Bilirubin Negative (Negative); Blood Negative (Negative); Epithelial Cells Moderate /HPF (None Seen); Glucose, Urine Negative (Negative); Hyaline Casts NONE SEEN /LPF (0-2); Ketones Trace (Negative); Leukocyte Esterase Negative (Negative); Nitrite Negative (Negative); Ph 6.5 (4.6-8.0); Protein,Urine Dip Trace (Negative); Specific Gravity 1.025 (1.005-1.030)
[2025-02-12] MEDS ORDERED: TORAdol 30 mg Injection ONE (14:36)
[2025-02-12] MEDS ORDERED: Rocephin 1000 MG INJ ONE (14:36)
[2025-02-12] MEDS: TORAdol 30 mg Injection IM ONE (14:38)
[2025-02-12] MEDS: Rocephin 1000 MG INJ IM ONE (14:38)
[2025-02-12 15:42] VITALS: BP 143/97; PULSE 74; RESP 18; O2SAT 97
== END 2025-02-12 15:15 | disposition home or self-care (01) ==
LOC: ED 11:58
DX: N30.00 Acute cystitis without hematuria (principal); R10.30 Lower abdominal pain, unspecified; R11.11 Vomiting without nausea; R10.11 Right upper quadrant pain; I10 Essential (primary) hypertension; Z79.899 Other long term (current) drug therapy
CPT/HCPCS: 36415; 80053; 81001; 82150; 83690; 85025; 96372; 99283; 99284; J0696; J1885; Q0162

== ENCOUNTER 2025-02-15 15:29 | Emergency (ER) | payer OTHER ==
[2025-02-15] MEDS ORDERED: Zofran 4 MG/2 ML VIAL ONE (18:05)
[2025-02-15] MEDS ORDERED: MORPHINE SULFATE 4 MG INJ ONE ×2 (18:05→19:42)
[2025-02-15 18:06] LABS: Absolute Neutrophil Ct (ANC) 5.73 x10^3/uL (1.56-6.13); BASOPHIL % 0.5 % (0.1-1.2); Basophil (Absolute #) 0.04 x10^3/uL (0.01-0.08); Eosinophil % 0.9 % (0.7-5.8); Eosinophil (Absolute #) 0.07 x10^3/uL (0.04-0.36); Hematocrit 39.7 % (34.1-44.9); Hemoglobin 13.6 g/dL (11.2-15.7); IMMATURE GRAN # 0.02 x10^3u/L (0.001-0.031); IMMATURE GRAN % 0.2 % (0.001-0.429); Lymphocyte (Absolute #) 1.47 x10^3/uL (1.18-3.74); Lymphocytes % 18.3 % (19.3-51.7); Mean Cell Volume 94.1 fL (79.4-94.8); Mean Corpuscular Hemoglobin 32.2 pg (25.6-32.2); Mean Corpuscular Hgb Concent. 34.3 g/dL (32.2-35.5); Mean Platelet Volume 9.5 fL (9.4-12.3); Monocytes % 8.7 % (4.7-12.5); Neutrophil % 71.4 % (34.0-71.1); Platelet Count 322 x10^3/uL (182-369); Red Blood Count 4.22 x10^6/uL (3.93-5.22); Red Cell Distribution Width 12.6 % (11.7-14.4)
[2025-02-15] MEDS: Sodium Chloride 0.9% 1000 ML 1,000 ML IV STA (18:06)
[2025-02-15] MEDS ORDERED: Sodium Chloride 0.9% 1000 ML 1,000 ML ONE (18:06)
[2025-02-15] MEDS: MORPHINE SULFATE 4 MG INJ IV ONE ×2 (18:06→19:43)
[2025-02-15] MEDS: Zofran 4 MG/2 ML VIAL IV ONE (18:06)
[2025-02-15 18:24] LABS: ALBUMIN 4.6 g/dL (3.5-5.0); ANION GAP 15.9 MEQ/L (5-15); BILIRUBIN,TOTAL 0.6 mg/dL (0.2-1.3); Calcium 9.4 mg/dL (8.4-10.2); Creatinine 1 0.82 mg/dL (0.52-1.04); EST GLOMERULAR FILTRATION RATE 87.1 ML/MIN; Potassium 3.9 mmol/L (3.5-5.1); Total Protein 7.2 g/dL (6.3-8.2)
--- NOTE | 2025-02-15 18:54 | ERPHSYRPT ---
- History of Present Illness Historian: patient Exam Limitations: no limitations Patient Subjective Stated Complaint: Pt has been vomiting for 4 days, pt does have a UTI and is on Cipro Triage Nursing Assessment: Pt was brought to the ER by family, hypertensive, rates abdominal pain as 6/10, reports having a burning feelin in her stomach and pain in her RLQ, reports not feeling sick but vomiting due to abdominal pain, pulses normal, skin n/w/d, denies chest pain, doesn't appear to be in any distress Hx Tetanus, Diphtheria Vaccination/Date Given: Yes Hx Influenza Vaccination/Date Given: Yes Hx Pneumococcal Vaccination/Date Given: No <DENIZ GRESHAM - Last Filed: 02/15/25 18:52> <MENDEZ DURAND - Last Filed: 02/15/25 19:51> - History of Present Illness Time Seen by Provider: 02/15/25 17:09 Physician History: 49 years old female recently diagnosed with UTI on antibiotics presented in the ER with 4 days history of right sided abdominal pain with multiple episodes of nonprojectile, nonbilious vomiting without hematemesis. She denies any increased urinary frequency or urgency or hesitancy. Pain is moderate to severe sharp shooting, nonradiating, aggravated with palpation and movements. Reports subjective feeling of fever and chills. (DENIZ GRESHAM) Allergies/Adverse Reactions: ca Allergy (Severe, Verified 02/15/25 17:15) Swelling pregabalin [From Lyrica] Allergy (Severe, Verified 02/15/25 17:15) amoxicillin Allergy (Intermediate, Verified 02/15/25 17:15) Rash Penicillins Allergy (Intermediate, Verified 02/15/25 17:15) Rash propoxyphene HCl [From Darvon] Allergy (Intermediate, Verified 02/15/25 17:15) PASS OUT Home Medications: levETIRAcetam [Levetiracetam] 1,000 mg PO BID 02/20/19 [History] Hydroxychloroquine Sulfate 200 mg PO DAILY 02/19/23 [History] Metoprolol Tartrate 25 mg [Lopressor 25MG Tab] 25 mg PO DAILY 07/11/24 [History] Lisinopril 10 mg [Zestril 10 MG] 10 mg PO HS 08/23/24 [History] Lumateperone Tosylate [Caplyta] 42 mg PO DAILY 12/30/24 [History] Venlafaxine HCl [Effexor Xr] 150 mg PO DAILY 12/30/24 [History] hydrOXYzine pamoate [Hydroxyzine Pamoate] 50 mg PO HS 12/30/24 [History] Travel Risk - International Travel Have you traveled outside of the country in past 3 weeks: No - Emerging Infectious Disease Are you exhibiting symptoms associated with any current EIDs: Yes Symptoms: Abdominal Pain, Vomitting <DENIZ GRESHAM - Last Filed: 02/15/25 18:52> - Review of Systems Constitutional: Fever, Chills, Fatigue Eyes: No Symptoms Ears, Nose, & Throat: No Symptoms Respiratory: No Symptoms Cardiac: No Symptoms Abdominal/Gastrointestinal: Abdominal Pain, Nausea, Vomiting Genitourinary Symptoms: No Symptoms Musculoskeletal: Myalgias Skin: No Symptoms Neurological: No Symptoms Psychological: No Symptoms Endocrine: No Symptoms Hematologic/Lymphatic: No Symptoms <DENIZ GRESHAM - Last Filed: 02/15/25 18:52> - Past Medical History Pertinent Past Medical History: Yes Neurological History: Migraines, Seizures ENT History: No Pertinent History Cardiac History: Hypertension Respiratory History: COPD Endocrine Medical History: Other Musculoskeletal History: Degenerative Disk Disease, Fibromyalgia GI Medical History: Esophageal Disorder, GERD History: Other Psycho-Social History: Anxiety, Bipolar, Depression, Panic Disorder Female Reproductive Disorders: Abnormal Uterine Bleeding Other Medical History: Lupus, Neuropathy, bipolar 1 schizophrenia, PTSD, kidney stones - Past Surgical History Past Surgical History: Yes Neuro Surgical History: No Pertinent History Cardiac: No Pertinent History Respiratory: No Pertinent History Gastrointestinal: No Pertinent History Genitourinary: No Pertinent History Musculoskeletal: Other Female Surgical History: Section, Tubal Ligation, Other Other Surgical History: ABLATION - TUBAL LIGATION. BILATERAL WRIST SURGERY. PLATE AND TWO SCREWS IN THE BACK OF NECK. 12/26/20 Surgery to back. cadaver bone in neck Significant Family History: no pertinent family hx - Female History Hx Last Menstrual Period: Ablation/tubal Hx Now: No - Social History Smoking Status: Current some day smoker How long have you smoked: vape Exposure to second hand smoke: No Drug Use: none - Social Determinants of Health Will the patient participate in the screening: Yes Do you worry about a steady place to live?: No Do you have any problems with any of the following?: No known problems In the past 12 months,have you had to go without utilities?: No Transportation Issues: No Has anyone in your support network made you feel unsafe?: No Have you or anyone in your house had to go w/o enough food: No <SANJU GRESHAMMIR - Last Filed: 02/15/25 18:52> - Physical Exam General Appearance: no apparent distress, alert Eye Exam: PERRL/EOMI Ears, Nose, Throat Exam: normal ENT inspection Neck Exam: normal inspection, non-tender, supple, full range of motion Respiratory Exam: normal breath sounds, lungs clear Cardiovascular Exam: regular rate/rhythm, normal heart sounds Gastrointestinal/Abdomen Exam: soft, normal bowel sounds, tenderness (Right lower quadrant/right upper quadrant with minimal guarding but no rebound tenderness) Back Exam: normal inspection, normal range of motion Extremity Exam: normal inspection, normal range of motion Neurologic Exam: alert, 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, cooperative Skin Exam: normal color SpO2 Interpretation: normal SpO2: 98 O2 Delivery: Room Air <MARGADENIZ - Last Filed: 02/15/25 18:52> - Nursing Vital Signs Nursing Vital Signs: Initial Vital Signs Temperature 96.6 F 02/15/25 17:08 Pulse Rate 86 02/15/25 17:08 Blood Pressure 146/95 02/15/25 17:08 O2 Sat by Pulse Oximetry 97 02/15/25 17:08 Pain Scale Pain Intensity 5 Ordered Tests: Active Orders 24 hr Category Date Time Status IV Insertion STAT Care 02/15/25 17:47 Active NPO (ED) STAT Care 02/15/25 17:47 Active ABDOMEN AND PELVIS W/0 CONTRAS [CT] Stat Exams 02/15/25 17:47 Taken CBC W DIFF Stat Lab 02/15/25 18:05 Completed CMP Stat Lab 02/15/25 18:05 Completed CULTURE,URINE Stat Lab 02/15/25 18:14 Received LIPASE Stat Lab 02/15/25 18:05 Completed Lactic Acid Stat Lab 02/15/25 18:20 Completed UA W/RFX UR CULTURE Stat Lab 02/15/25 18:14 Completed Medication Summary Discontinued Medications Generic Name Dose Route Start Last Admin Trade Name Freq PRN Reason Stop Dose Admin Sodium Chloride 1,000 mls @ 999 mls/hr 02/15/25 17:47 02/15/25 19:32 Sodium Chloride 0.9% 1000 Ml IV 02/15/25 18:47 Infused .Q1H1M STA Infusion Sodium Chloride Confirm 02/15/25 18:06 Sodium Chloride 0.9% 1000 Ml Administered 02/15/25 18:07 Dose 1,000 mls @ ud .ROUTE .STK-MED ONE Morphine Sulfate 4 mg 02/15/25 17:47 02/15/25 18:06 Morphine Sulfate 4 Mg/Ml Injection IV 02/15/25 17:48 4 mg STAT ONE Administration Morphine Sulfate Confirm 02/15/25 18:05 Morphine Sulfate 4 Mg/Ml Injection Administered 02/15/25 18:06 Dose 4 mg .ROUTE .STK-MED ONE Morphine Sulfate 4 mg 02/15/25 19:32 Morphine Sulfate 4 Mg/Ml Injection IV 02/15/25 19:33 STAT ONE Morphine Sulfate Confirm 02/15/25 19:42 Morphine Sulfate 4 Mg/Ml Injection Administered 02/15/25 19:43 Dose 4 mg .ROUTE .STK-MED ONE Ondansetron HCl 4 mg 02/15/25 17:47 02/15/25 18:06 Ondansetron Hcl 4 Mg/2 Ml Vial IV 02/15/25 17:48 4 mg STAT ONE Administration Ondansetron HCl Confirm 02/15/25 18:05 Ondansetron Hcl 4 Mg/2 Ml Vial Administered 02/15/25 18:06 Dose 4 mg .ROUTE .STK-MED ONE Lab/Rad Data: Laboratory Result Diagrams 02/15/25 18:05 02/15/25 18:05 Laboratory Results 02/15/25 02/15/25 02/15/25 Range/Units 18:20 18:14 18:05 WBC (3.98-10.04) x10^3/uL RBC (3.93-5.22) x10^6/uL Hgb (11.2-15.7) g/dL Hct (34.1-44.9) % MCV (79.4-94.8) fL MCH (25.6-32.2) pg MCHC (32.2-35.5) g/dL RDW (11.7-14.4) % Plt Count (182-369) x10^3/uL MPV (9.4-12.3) fL Gran % (34.0-71.1) % Immature Gran % (Auto) (0.001-0.429) % Nucleat RBC Rel Count (0.00-0.2) % Eos # (Auto) (0.04-0.36) x10^3/uL Immature Gran # (Auto) (0.001-0.031) x10^3u/L Absolute Lymphs (auto) (1.18-3.74) x10^3/uL Absolute Monos (auto) (0.24-0.86) x10^3/uL Absolute Nucleated RBC (0.00-0.012) x10^3u/L Lymphocytes % (19.3-51.7) % Monocytes % (4.7-12.5) % Eosinophils % (0.7-5.8) % Basophils % (0.1-1.2) % Absolute Granulocytes (1.56-6.13) x10^3/uL Basophils # (0.01-0.08) x10^3/uL Sodium 138 (135-145) mmol/L Potassium 3.9 (3.5-5.1) mmol/L Chloride 102 (98-107) mmol/L Carbon Dioxide 25 (22-30) mmol/L Anion Gap 15.9 H (5-15) MEQ/L BUN 23 H (7-17) mg/dL Creatinine 0.82 (0.52-1.04) mg/dL Estimated GFR 87.1 ML/MIN Glucose 93 (74-106) mg/dL Lactic Acid 0.9 (0.4-2.0) Calcium 9.4 (8.4-10.2) mg/dL Total Bilirubin 0.60 (0.2-1.3) mg/dL AST 20 (14-36) U/L ALT 14 (0-35) U/L Alkaline Phosphatase 76 (38-126) U/L Serum Total Protein 7.2 (6.3-8.2) g/dL Albumin 4.6 (3.5-5.0) g/dL Lipase 114 (23-300) U/L Urine Color Dark Yellow A (Yellow) Urine Appearance Cloudy A (Clear) Urine pH 5.0 (4.6-8.0) Ur Specific Adger >=1.030 A (1.005-1.030) Urine Protein 30 (Negative) Urine Glucose (UA) Negative (Negative) mg/dL Urine Ketones 15 A (Negative) Urine Blood Negative (Negative) Urine Nitrite Negative (Negative) Urine Bilirubin Negative (Negative) Urine Urobilinogen 1.0 A (0.2) mg/dL Ur Leukocyte Esterase Negative (Negative) U Hyaline Cast (Auto) None Seen (0-2) /LPF Urine Microscopic RBC 0-2 (0-5) /HPF Urine Microscopic WBC 3-5 (0-5) /HPF Ur Epithelial Cells Few (None Seen) /HPF Urine Bacteria Few A (None Seen) /HPF Urine Culture Reflexed YES (NO) 02/15/25 Range/Units 18:05 WBC 8.0 (3.98-10.04) x10^3/uL RBC 4.22 (3.93-5.22) x10^6/uL Hgb 13.6 (11.2-15.7) g/dL Hct 39.7 (34.1-44.9) % MCV 94.1 (79.4-94.8) fL MCH 32.2 (25.6-32.2) pg MCHC 34.3 (32.2-35.5) g/dL RDW 12.6 (11.7-14.4) % Plt Count 322 (182-369) x10^3/uL MPV 9.5 (9.4-12.3) fL Gran % 71.4 H (34.0-71.1) % Immature Gran % (Auto) 0.2 (0.001-0.429) % Nucleat RBC Rel Count 0.0 (0.00-0.2) % Eos # (Auto) 0.07 (0.04-0.36) x10^3/uL Immature Gran # (Auto) 0.02 (0.001-0.031) x10^3u/L Absolute Lymphs (auto) 1.47 (1.18-3.74) x10^3/uL Absolute Monos (auto) 0.70 (0.24-0.86) x10^3/uL Absolute Nucleated RBC 0.00 (0.00-0.012) x10^3u/L Lymphocytes % 18.3 L (19.3-51.7) % Monocytes % 8.7 (4.7-12.5) % Eosinophils % 0.9 (0.7-5.8) % Basophils % 0.5 (0.1-1.2) % Absolute Granulocytes 5.73 (1.56-6.13) x10^3/uL Basophils # 0.04 (0.01-0.08) x10^3/uL Sodium (135-145) mmol/L Potassium (3.5-5.1) mmol/L Chloride (98-107) mmol/L Carbon Dioxide (22-30) mmol/L Anion Gap (5-15) MEQ/L BUN (7-17) mg/dL Creatinine (0.52-1.04) mg/dL Estimated GFR ML/MIN Glucose (74-106) mg/dL Lactic Acid (0.4-2.0) Calcium (8.4-10.2) mg/dL Total Bilirubin (0.2-1.3) mg/dL AST (14-36) U/L ALT (0-35) U/L Alkaline Phosphatase (38-126) U/L Serum Total Protein (6.3-8.2) g/dL Albumin (3.5-5.0) g/dL Lipase (23-300) U/L Urine Color (Yellow) Urine Appearance (Clear) Urine pH (4.6-8.0) Ur Specific Adger (1.005-1.030) Urine Protein (Negative) Urine Glucose (UA) (Negative) mg/dL Urine Ketones (Negative) Urine Blood (Negative) Urine Nitrite (Negative) Urine Bilirubin (Negative) Urine Urobilinogen (0.2) mg/dL Ur Leukocyte Esterase (Negative) U Hyaline Cast (Auto) (0-2) /LPF Urine Microscopic RBC (0-5) /HPF Urine Microscopic WBC (0-5) /HPF Ur Epithelial Cells (None Seen) /HPF Urine Bacteria (None Seen) /HPF Urine Culture Reflexed (NO) <DENIZ GRESHAM - Last Filed: 02/15/25 18:52> - Progress Progress: improved, pain not gone completely, re-examined Counseled pt/family regarding: lab results, diagnosis, need for follow-up, rad results <MENDEZ DURAND - Last Filed: 02/15/25 19:51> - Progress Progress Note: 02/15/25 18:54 She is given fluids and symptomatic treatment, workup is pending, care is transferred to Dr. Durand at end of my shift for reevaluation and final disposition (DENIZ GRESHAM) 02/15/25 19:46 I interpreted the patient's laboratory data results. Based on the laboratory data results, the patient does not have an acute, emergent medical issue. She has mild dehydration and she received 1 L of crystalloid intravenously. Her urinalysis showed a few bacteria and the culture reflexed. We will wait for the culture to determine if she actually needs to be treated with an antibiotic. This was discussed with the patient. Differential diagnosis includes was not limited to constipation, colitis, diverticulitis, acute appendicitis, bowel obstruction, The CT scan of the abdomen pelvis without contrast was interpreted by the radiologist and I reviewed the impression. The impression states normal appendix. Small hiatal hernia. Stable left renal cyst. Mild diffuse fecal stasis. No new or acute findings. This was compared to a similar study dated 11/07/2024. These findings were discussed with the patient (MENDEZ DURAND) Medical Desision Making - Independent Historian Additional History obtained from: Family - Diagnostic Testing Diagnostic test were ordered, analyzed, and reviewed by me: Yes Radiological Interpretation: Reviewed by me, Teleradiologist Report - Risk of complications Low Risk: Low risk of morbidity from additional dx testing or treatment <MENDEZ DURAND - Last Filed: 02/15/25 19:51> <DENIZ GRESHAM - Last Filed: 02/15/25 18:52> - Departure Departure Disposition: Home Critical Care Time: No <MENDEZ DURAND - Last Filed: 02/15/25 19:51> - Departure Clinical Impression: Abdominal pain, Vomiting, Mild dehydration, Renal cyst, left Condition: Stable Referrals: FRANSISCA RAY NP [Primary Care Provider, [facility]] - Follow up/PCP as directed Additional Instructions: Drink plenty of clear liquids. Advance your diet slowly. Avoid fatty greasy spicy foods. Call your primary care provider tomorrow, 02/16/2025, to make arranges for follow-up appointment for further evaluation management. Take all your medications as prescribed.
[2025-02-15 19:18] LABS: Appearance Cloudy (Clear); Bilirubin Negative (Negative); Blood Negative (Negative); Glucose, Urine Negative (Negative); Ketones 15 (Negative); Leukocyte Esterase Negative (Negative); Nitrite Negative (Negative); Protein,Urine Dip 30 (Negative); Specific Gravity >=1.030 (1.005-1.030)
[2025-02-15 19:40] LABS: RBC 0-2 /HPF (0-5)
[2025-02-15 19:41] LABS: Bacteria Few /HPF (None Seen); Epithelial Cells Few /HPF (None Seen); Hyaline Casts None Seen /LPF (0-2)
[2025-02-15 20:37] VITALS: BP 141/93; PULSE 77; RESP 18; TEMP 98; O2SAT 98
--- NOTE | 2025-02-16 08:32 | XRAY ---
Indication: Right lower quadrant pain. Vomiting. Multiple contiguous axial images obtained through the abdomen and pelvis without contrast. Comparison: November 07, 2024 Lung bases clear. Heart not enlarged. Enlarging moderate size hiatal hernia with now partial intrathoracic stomach. Noncontrasted stomach and bowel loops appear nonobstructed again with normal appendix. There is now mild diffuse scattered colonic fecal debris. Stable multiple splenic calcified granulomas and small left upper renal exophytic cyst. No free fluid/air. Remaining liver, gallbladder, pancreas, spleen, adrenal glands, kidneys, ureters, bladder, uterus, and aorta are unremarkable for noncontrast exam. Osseous structures intact again with minimal degenerative changes throughout spine and minimal lumbar levoscoliosis. Impression: 1. Enlarging hiatal hernia. 2. New mild diffuse colonic fecal stasis. 3. Stable small left renal cyst, chronic bony findings, and old granulomatous disease.
== END 2025-02-15 20:37 | disposition home or self-care (01) ==
LOC: ED 15:29
DX: R11.2 Nausea with vomiting, unspecified (principal); R10.9 Unspecified abdominal pain; E86.0 Dehydration; N28.1 Cyst of kidney, acquired; Z79.899 Other long term (current) drug therapy; Z72.0 Tobacco use
CPT/HCPCS: 36415; 74176; 80053; 81001; 83605; 83690; 85025; 87086; 96361; 96374; 96375; 96376; 99284; J2270; J2405

== ENCOUNTER 2025-05-12 23:37 | Observation (INO) | payer OTHER ==
--- NOTE | 2025-05-12 23:40 | ERPHSYRPT ---
- History of Present Illness Time Seen by Provider: 05/12/25 23:40 Source: patient, EMS Exam Limitations: no limitations Physician History: BIBA for seizures, 2 seizures en route EMS gave 4mg Versed. On arrival patient AAOx3 conversing. Reports left shoulder pain and CP prior to seizure, just started nitro as needed today. Patient has missed last 3 doses of Keppra. She take 2000mg BID. She has small seizures daily and large seizures 3-4 times per week which is controlled for her. No head injury. Timing/Duration: today Severity: moderate Character of Deficits: none Deficits: no difficulties Baseline/Normal Cognition: alert 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 Current Cognition: alert 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 Associated Symptoms: confusion, fatigue, seizures, chest pain, No fever, No loss of consciousness, No weakness Allergies/Adverse Reactions: ca Allergy (Severe, Verified 05/12/25 23:49) Swelling pregabalin [From Lyrica] Allergy (Severe, Verified 05/12/25 23:49) amoxicillin Allergy (Intermediate, Verified 05/12/25 23:49) Rash Penicillins Allergy (Intermediate, Verified 05/12/25 23:49) Vomiting propoxyphene HCl [From Darvon] Allergy (Intermediate, Verified 05/12/25 23:49) PASS OUT Home Medications: levETIRAcetam [Levetiracetam] 1,000 mg PO BID 02/20/19 [History] Hydroxychloroquine Sulfate 200 mg PO DAILY 02/19/23 [History] Metoprolol Tartrate 25 mg [Lopressor 25MG Tab] 25 mg PO DAILY 07/11/24 [History] Lisinopril 10 mg [Zestril 10 MG] 10 mg PO HS 08/23/24 [History] hydrOXYzine pamoate [Hydroxyzine Pamoate] 50 mg PO HS 12/30/24 [History] Hx Tetanus, Diphtheria Vaccination/Date Given: Yes Hx Influenza Vaccination/Date Given: Yes Hx Pneumococcal Vaccination/Date Given: No Travel Risk - Emerging Infectious Disease Are you exhibiting symptoms associated with any current EIDs: Yes Symptoms: Vomitting - Review of Systems All Other Systems: Reviewed and Negative - Past Medical History Pertinent Past Medical History: Yes Neurological History: Migraines, Seizures ENT History: No Pertinent History Cardiac History: Hypertension Respiratory History: COPD Endocrine Medical History: Other Musculoskeletal History: Degenerative Disk Disease, Fibromyalgia GI Medical History: Esophageal Disorder, GERD History: Other Psycho-Social History: Anxiety, Bipolar, Depression, Panic Disorder Female Reproductive Disorders: Abnormal Uterine Bleeding Other Medical History: Lupus, Neuropathy, bipolar 1 schizophrenia, PTSD, kidney stones - Past Surgical History Past Surgical History: Yes Neuro Surgical History: No Pertinent History Cardiac: No Pertinent History Respiratory: No Pertinent History Gastrointestinal: No Pertinent History Genitourinary: No Pertinent History Musculoskeletal: Other Female Surgical History: Section, Tubal Ligation, Other Other Surgical History: ABLATION - TUBAL LIGATION. BILATERAL WRIST SURGERY. PLATE AND TWO SCREWS IN THE BACK OF NECK. 12/26/20 Surgery to back. cadaver bone in neck Significant Family History: no pertinent family hx - Female History Hx Last Menstrual Period: 17 years ago - Social History Smoking Status: Current every day smoker Exposure to second hand smoke: Yes Drug Use: none - Social Determinants of Health Will the patient participate in the screening: Yes Do you worry about a steady place to live?: No In the past 12 months,have you had to go without utilities?: No Transportation Issues: No Has anyone in your support network made you feel unsafe?: No Have you or anyone in your house had to go w/o enough food: No - Nursing Vital Signs Nursing Vital Signs: Initial Vital Signs Temperature 97.4 F 05/12/25 23:40 Pulse Rate 86 05/12/25 23:40 Respiratory Rate 18 05/12/25 23:40 Blood Pressure 114/76 05/12/25 23:40 O2 Sat by Pulse Oximetry 98 05/12/25 23:40 Pain Scale Pain Intensity 6 - Taylor Coma Scale Best Eye Response (Preemption): (4) open spontaneously Best Verbal Response (Taylor): (5) oriented Best Motor Response (Preemption): (6) obeys commands Taylor Total: 15 - Physical Exam General Appearance: no apparent distress Eye Exam: bilateral eye: normal inspection, PERRL, EOMI Ears, Nose, Throat Exam: normal ENT inspection Neck Exam: normal inspection, non-tender, supple, full range of motion Respiratory: normal breath sounds, lungs clear, airway intact, No respiratory distress Cardiovascular: regular rate/rhythm, capillary refill <2 sec Gastrointestinal: soft, normal bowel sounds, No tenderness Extremity Exam: limited range of motion (left shoulder), tenderness (left shoulder) barrel rifler button Exam: normal hearing, normal speech, PERRL Motor/Sensory: no motor deficit, no sensory deficit, no pronator drift Skin Exam: normal color, warm, dry, No rash SpO2 Interpretation: normal O2 Delivery: Nasal Cannula - Course Nursing assessment & vital signs reviewed: Yes Ordered Tests: Active Orders 24 hr Category Date Time Status EKG-ER Only STAT Care 05/12/25 23:40 Active IV Insertion STAT Care 05/12/25 23:40 Active Seizure Precautions -SCCHED STAT Care 05/12/25 23:40 Active CHEST 1 VIEW (PORTABLE) Stat Exams 05/12/25 23:43 Taken HEAD WITHOUT CONTRAST [CT] Stat Exams 05/13/25 03:00 Taken HUMERUS Stat Exams 05/12/25 23:42 Taken SHOULDER Stat Exams 05/12/25 23:42 Taken SHOULDER Stat Exams 05/13/25 01:54 Taken CBC W DIFF Stat Lab 05/12/25 23:55 Completed CMP Stat Lab 05/12/25 23:55 Completed Lactic Acid Stat Lab 05/12/25 23:55 Completed TROPONIN Q4H Lab 05/12/25 23:55 Completed UA W/RFX UR CULTURE Stat Lab 05/12/25 23:40 Ordered Urine Triage Profile Stat Lab 05/12/25 23:40 Ordered Medication Summary Discontinued Medications Generic Name Dose Route Start Last Admin Trade Name Manish PRN Reason Stop Dose Admin Droperidol 1.25 mg 05/13/25 00:52 05/13/25 01:14 Droperidol 5 Mg/2 Ml Vial IV 05/13/25 00:53 1.25 mg STAT ONE Administration Droperidol Confirm 05/13/25 01:13 Droperidol 5 Mg/2 Ml Vial Administered 05/13/25 01:14 Dose 5 mg .ROUTE .STK-MED ONE Levetiracetam 2,000 mg/ 120 mls @ 220 mls/hr 05/13/25 00:39 05/13/25 01:16 Dextrose IV 05/13/25 01:11 Infused STAT ONE Infusion Dextrose Confirm 05/13/25 00:43 D5w 100ml Mini Bag 100 Ml Administered 05/13/25 00:44 Dose 100 mls @ ud IV .STK-MED ONE Levetiracetam Confirm 05/13/25 00:43 Levetiracetam 500 Mg/5 Ml Vial Administered 05/13/25 00:44 Dose 2,000 mg .ROUTE .STK-MED ONE Lorazepam 2 mg 05/13/25 00:30 05/13/25 00:44 Lorazepam 2 Mg/1 Ml 2 Mg Vial IV 05/13/25 00:31 2 mg STAT ONE Administration Lorazepam Confirm 05/13/25 00:43 Lorazepam 2 Mg/1 Ml 2 Mg Vial Administered 05/13/25 00:44 Dose 2 mg .ROUTE .STK-MED ONE Lab/Rad Data: Laboratory Result Diagrams 05/12/25 23:55 05/12/25 23:55 Laboratory Results 05/12/25 05/12/25 05/12/25 Range/Units 23:55 23:55 23:55 WBC (3.98-10.04) x10^3/uL RBC (3.93-5.22) x10^6/uL Hgb (11.2-15.7) g/dL Hct (34.1-44.9) % MCV (79.4-94.8) fL MCH (25.6-32.2) pg MCHC (32.2-35.5) g/dL RDW (11.7-14.4) % Plt Count (182-369) x10^3/uL MPV (9.4-12.3) fL Gran % (34.0-71.1) % Immature Gran % (Auto) (0.001-0.429) % Nucleat RBC Rel Count (0.00-0.2) % Eos # (Auto) (0.04-0.36) x10^3/uL Immature Gran # (Auto) (0.001-0.031) x10^3u/L Absolute Lymphs (auto) (1.18-3.74) x10^3/uL Absolute Monos (auto) (0.24-0.86) x10^3/uL Absolute Nucleated RBC (0.00-0.012) x10^3u/L Lymphocytes % (19.3-51.7) % Monocytes % (4.7-12.5) % Eosinophils % (0.7-5.8) % Basophils % (0.1-1.2) % Absolute Granulocytes (1.56-6.13) x10^3/uL Basophils # (0.01-0.08) x10^3/uL Sodium 140 (135-145) mmol/L Potassium 3.5 (3.5-5.1) mmol/L Chloride 111 H (98-107) mmol/L Carbon Dioxide 22 (22-30) mmol/L Anion Gap 10.5 (5-15) MEQ/L BUN 15 (7-17) mg/dL Creatinine 0.74 (0.52-1.04) mg/dL Estimated GFR 98.5 ML/MIN Glucose 107 H (74-106) mg/dL Lactic Acid 0.7 (0.4-2.0) Calcium 9.0 (8.4-10.2) mg/dL Total Bilirubin 0.40 (0.2-1.3) mg/dL AST 19 (14-36) U/L ALT 11 (0-35) U/L Alkaline Phosphatase 60 (38-126) U/L Troponin I < 0.012 (0.000-0.033) ng/mL Serum Total Protein 6.3 (6.3-8.2) g/dL Albumin 3.8 (3.5-5.0) g/dL 05/12/ Range/Units 23:55 WBC 8.1 (3.98-10.04) x10^3/uL RBC 3.63 L (3.93-5.22) x10^6/uL Hgb 12.0 (11.2-15.7) g/dL Hct 35.1 (34.1-44.9) % MCV 96.7 H (79.4-94.8) fL MCH 33.1 H (25.6-32.2) pg MCHC 34.2 (32.2-35.5) g/dL RDW 13.0 (11.7-14.4) % Plt Count 314 (182-369) x10^3/uL MPV 9.6 (9.4-12.3) fL Gran % 58.5 (34.0-71.1) % Immature Gran % (Auto) 0.1 (0.001-0.429) % Nucleat RBC Rel Count 0.0 (0.00-0.2) % Eos # (Auto) 0.47 H (0.04-0.36) x10^3/uL Immature Gran # (Auto) 0.01 (0.001-0.031) x10^3u/L Absolute Lymphs (auto) 2.20 (1.18-3.74) x10^3/uL Absolute Monos (auto) 0.63 (0.24-0.86) x10^3/uL Absolute Nucleated RBC 0.00 (0.00-0.012) x10^3u/L Lymphocytes % 27.0 (19.3-51.7) % Monocytes % 7.7 (4.7-12.5) % Eosinophils % 5.8 (0.7-5.8) % Basophils % 0.9 (0.1-1.2) % Absolute Granulocytes 4.76 (1.56-6.13) x10^3/uL Basophils # 0.07 (0.01-0.08) x10^3/uL Sodium (135-145) mmol/L Potassium (3.5-5.1) mmol/L Chloride (98-107) mmol/L Carbon Dioxide (22-30) mmol/L Anion Gap (5-15) MEQ/L BUN (7-17) mg/dL Creatinine (0.52-1.04) mg/dL Estimated GFR ML/MIN Glucose (74-106) mg/dL Lactic Acid (0.4-2.0) Calcium (8.4-10.2) mg/dL Total Bilirubin (0.2-1.3) mg/dL AST (14-36) U/L ALT (0-35) U/L Alkaline Phosphatase (38-126) U/L Troponin I (0.000-0.033) ng/mL Serum Total Protein (6.3-8.2) g/dL Albumin (3.5-5.0) g/dL - Progress Progress: improved Progress Note: Patient missed multiple doses of Keppra and got into an argument which triggers her seizures. Benzos and 2000mg Keppra have controlled seizures at this time. Patient still requiring O2 and very sleepy due to meds. would like patient admitted for observation overnight. Discussed admission with Dr. Carvalho who accepts pending CT head w/o. 05/13/25 03:[address] will admit for observation. Counseled pt/family regarding: lab results, diagnosis, need for follow-up, rad results Medical Desision Making - Diagnostic Testing Diagnostic test were ordered, analyzed, and reviewed by me: Yes Radiological Interpretation: Interpreted by me, Reviewed by me, Teleradiologist Report - Risk of complications The pt has a mod risk of morbidity or mortality based on: Need for prescription drug management The pt has a high risk of morbidity or mortality based on: Decision regarding hospitilization or escalation of hosp level of care - Departure Departure Disposition: Observation Clinical Impression: Seizure, Fall, Dislocation of left shoulder joint Condition: Stable Critical Care Time: No Referrals: FRANSISCA RAY NP [Primary Care Provider, [facility]] - Follow up/PCP as directed Instructions: Seizures, Adult (DC)
[2025-05-13 00:02] LABS: BASOPHIL % 0.9 % (0.1-1.2); Basophil (Absolute #) 0.07 x10^3/uL (0.01-0.08); Eosinophil (Absolute #) 0.47 x10^3/uL (0.04-0.36); Hematocrit 35.1 % (34.1-44.9); Hemoglobin 12.0 g/dL (11.2-15.7); IMMATURE GRAN # 0.01 x10^3u/L (0.001-0.031); IMMATURE GRAN % 0.1 % (0.001-0.429); Lymphocyte (Absolute #) 2.20 x10^3/uL (1.18-3.74); Mean Corpuscular Hemoglobin 33.1 pg (25.6-32.2); Mean Corpuscular Hgb Concent. 34.2 g/dL (32.2-35.5); Monocyte (Absolute #) 0.63 x10^3/uL (0.24-0.86); NUCLEATED RBC # 0.00 x10^3u/L (0.00-0.012); NUCLEATED RBC % 0.0 % (0.00-0.2); Platelet Count 314 x10^3/uL (182-369); Red Blood Count 3.63 x10^6/uL (3.93-5.22); White Blood Count 8.1 x10^3/uL (3.98-10.04)
[2025-05-13 00:24] LABS: Calcium 9.0 mg/dL (8.4-10.2); Carbon Dioxide 22.0 mmol/L (22-30); Creatinine 1 0.74 mg/dL (0.52-1.04); EST GLOMERULAR FILTRATION RATE 98.5 ML/MIN; Glucose 107.0 mg/dL (74-106); Potassium 3.5 mmol/L (3.5-5.1); SGOT/AST 19.0 U/L (14-36); SGPT/ALT 11.0 U/L (0-35); Total Protein 6.3 g/dL (6.3-8.2)
[2025-05-13] MEDS ORDERED: Keppra 500 MG/5 ML ONE (00:43)
[2025-05-13] MEDS ORDERED: Ativan 2 MG/1 ML VIAL ONE (00:43)
[2025-05-13] MEDS ORDERED: D5w 100ML Mini Bag 100 ML 100 ML IV ONE (00:43)
[2025-05-13] MEDS: Keppra 500 MG/5 ML*** 2,000 MG in D5w 100ML Mini Bag 100 ML 100 ML IV ONE ×2 (00:44→05:36)
[2025-05-13] MEDS: Ativan 2 MG/1 ML VIAL IV ONE (00:44)
[2025-05-13] MEDS ORDERED: Inapsine 5 MG/2 ML ONE (01:13)
[2025-05-13] MEDS: Inapsine 5 MG/2 ML IV ONE (01:14)
--- NOTE | 2025-05-13 03:40 | XRAY ---
CLINICAL HISTORY: seizure COMPARISON: 13:49:07 CS. TECHNIQUE: Multiple axial images are obtained from the skull base to the vertex without contrast. CT scan was performed according to ALARA (as low as reasonable achievable). FINDINGS: The brain shows normal morphology, attenuation, and volume for age. No evidence of space occupying lesion, hemorrhage, edema, mass effect, midline shift, extra axial collection, or hydrocephalus is noted. Ventricles, sulci, and basal cisterns are symmetric and normal in size and configuration. The zhao-white matter differentiation is preserved. Visualized paranasal sinuses and mastoid air cells are well aerated. Orbital contents are within normal limits. Bony structures are intact. IMPRESSION: 1. No evidence of acute intracranial abnormality is demonstrated No other new interval abnormality since prior study. Electronically Signed by: Christophe Akbar MD. (05/13/2025 03:37:38 EDT)
[2025-05-13] MEDS ORDERED: Ativan 2 MG/1 ML VIAL IV PRN (05:06)
--- NOTE | 2025-05-13 05:12 | PCM.HP ---
History of Present Illness - Chief Complaint Chief Complaint: seizure History of Present Illness: 49 female with medical history of seizure, HTN presented to ER with complaint of multiple seizures. Apparently patient have not taken home dose of Keppra for past 1 day. On arrival to ER patient was alert 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 but had a seizure episode subsequently in postictal state after given benzos and Keppra. On my encounter patient did wake up and talk but still in postictal state. Currently vitals are stable, labs are fairly within normal limit, CT head no acute finding. S/p Keppra given in ER. Medications & Allergies Home Medications: Home Medication List levETIRAcetam [Levetiracetam] 1,000 mg PO BID 02/20/19 [History Confirmed 05/12/25] Hydroxychloroquine Sulfate 200 mg PO DAILY 02/19/23 [History Confirmed 05/12/25] Metoprolol Tartrate 25 mg [Lopressor 25MG Tab] 25 mg PO DAILY 07/11/24 [History Confirmed 05/12/25] Lisinopril 10 mg [Zestril 10 MG] 10 mg PO HS 08/23/24 [History Confirmed 05/12/25] hydrOXYzine pamoate [Hydroxyzine Pamoate] 50 mg PO HS 12/30/24 [History Confirmed 05/12/25] Ondansetron ODT 4 MG [Zofran Odt 4 mg] 4 mg PO Q6H PRN PRN #20 tablet 04/08/25 [Rx Confirmed 05/12/25] Allergies/Adverse Reactions: Allergies Allergy/AdvReac Type Severity Reaction Status Date / Time ca Allergy Severe Swelling Verified 05/12/25 23:49 pregabalin [From Lyrica] Allergy Severe Verified 05/12/25 23:49 amoxicillin Allergy Intermediate Rash Verified 05/12/25 23:49 Penicillins Allergy Intermediate Vomiting Verified 05/12/25 23:49 propoxyphene HCl Allergy Intermediate PASS OUT Verified 05/12/25 23:49 [From Darvon] - Past Medical History Past Medical History: Yes Neurological History: Migraines, Seizures ENT History: No Pertinent History Cardiac History: Hypertension Respiratory History: COPD Endocrine Medical History: Other Musculoskelatal History: Degenerative Disk Disease, Fibromyalgia GI Medical History: Esophageal Disorder, GERD History: Other Pyscho-Social History: Anxiety, Bipolar, Depression, Panic Disorder Reproductive Disorders: Abnormal Uterine Bleeding Comment: Lupus, Neuropathy, bipolar 1 schizophrenia, PTSD, kidney stones - Female History Hx Last Menstrual Period: 17 years ago - Past Surgical History Past Surgical History: Yes Neuro Surgical History: No Pertinent History Cardiac History: No Pertinent History Respiratory Surgery: No Pertinent History GI Surgical History: No Pertinent History Genitourinary Surgical Hx: No Pertinent History Musculskeletal Surgical Hx: Other Female Surgical History: Section, Tubal Ligation, Other Other Surgical History: ABLATION - TUBAL LIGATION. BILATERAL WRIST SURGERY. PLATE AND TWO SCREWS IN THE BACK OF NECK. 12/26/20 Surgery to back. cadaver bone in neck Significant Family History: no pertinent family hx - Social History Smoking Status: Current every day smoker How long have you smoked: vape Exposure to second hand smoke: Yes Alcohol: None Drug Use: none - Social Determinants of Health Will the patient participate in the screening: Yes Do you worry about a steady place to live?: No Do you have any problems with any of the following?: No known problems In the past 12 months,have you had to go without utilities?: No Have you or anyone in your house had to go without enough: No Transportation Issues: No Has anyone in your support network made you feel unsafe?: No Does the patient want assistance with any of the above?: No Comment: . - Physical Exam Vital Signs: Vital Signs - 24 hr Temp Pulse Resp BP BP Pulse Ox 05/13/25 04:01 72 24 112/70 97 05/13/25 03:31 73 22 101/69 97 05/13/25 03:01 77 20 106/62 96 05/13/25 02:48 78 22 102/62 93 L 05/13/25 02:40 83 22 90 L 05/13/25 02:30 80 21 91 L 05/13/25 02:20 80 21 93 L 05/13/25 02:10 76 20 97 05/13/25 02:03 75 23 97 05/13/25 01:31 74 20 101/62 97 05/13/25 01:01 78 19 96/72 98 05/13/25 00:30 79 25 H 111/60 96 05/13/25 00:01 77 21 103/61 97 05/12/25 23:40 97.4 F 86 18 114/76 98 General Appearance: no apparent distress Neurologic Exam: disoriented, confusion Respiratory Exam: normal breath sounds (unable to perform physical examination since patient is altered and does not follow command) Cardiovascular Exam: regular rate/rhythm Gastrointestinal/Abdomen Exam: soft, No tenderness Results - Labs Lab/Micro Results: Lab Results-Last 24 Hours 05/12/25 05/12/25 05/12/25 Range/Units 23:55 23:55 23:55 WBC 8.1 (3.98-10.04) x10^3/uL RBC 3.63 L (3.93-5.22) x10^6/uL Hgb 12.0 (11.2-15.7) g/dL Hct 35.1 (34.1-44.9) % MCV 96.7 H (79.4-94.8) fL MCH 33.1 H (25.6-32.2) pg MCHC 34.2 (32.2-35.5) g/dL RDW 13.0 (11.7-14.4) % Plt Count 314 (182-369) x10^3/uL MPV 9.6 (9.4-12.3) fL Gran % 58.5 (34.0-71.1) % Immature Gran % (Auto) 0.1 (0.001-0.429) % Nucleat RBC Rel Count 0.0 (0.00-0.2) % Eos # (Auto) 0.47 H (0.04-0.36) x10^3/uL Immature Gran # (Auto) 0.01 (0.001-0.031) x10^3u/L Absolute Lymphs (auto) 2.20 (1.18-3.74) x10^3/uL Absolute Monos (auto) 0.63 (0.24-0.86) x10^3/uL Absolute Nucleated RBC 0.00 (0.00-0.012) x10^3u/L Lymphocytes % 27.0 (19.3-51.7) % Monocytes % 7.7 (4.7-12.5) % Eosinophils % 5.8 (0.7-5.8) % Basophils % 0.9 (0.1-1.2) % Absolute Granulocytes 4.76 (1.56-6.13) x10^3/uL Basophils # 0.07 (0.01-0.08) x10^3/uL Sodium 140 (135-145) mmol/L Potassium 3.5 (3.5-5.1) mmol/L Chloride 111 H (98-107) mmol/L Carbon Dioxide 22 (22-30) mmol/L Anion Gap 10.5 (5-15) MEQ/L BUN 15 (7-17) mg/dL Creatinine 0.74 (0.52-1.04) mg/dL Estimated GFR 98.5 ML/MIN Glucose 107 H (74-106) mg/dL Lactic Acid 0.7 (0.4-2.0) Calcium 9.0 (8.4-10.2) mg/dL Total Bilirubin 0.40 (0.2-1.3) mg/dL AST 19 (14-36) U/L ALT 11 (0-35) U/L Alkaline Phosphatase 60 (38-126) U/L Troponin I (0.000-0.033) ng/mL Serum Total Protein 6.3 (6.3-8.2) g/dL Albumin 3.8 (3.5-5.0) g/dL 05/12/25 Range/Units 23:55 WBC (3.98-10.04) x10^3/uL RBC (3.93-5.22) x10^6/uL Hgb (11.2-15.7) g/dL Hct (34.1-44.9) % MCV (79.4-94.8) fL MCH (25.6-32.2) pg MCHC (32.2-35.5) g/dL RDW (11.7-14.4) % Plt Count (182-369) x10^3/uL MPV (9.4-12.3) fL Gran % (34.0-71.1) % Immature Gran % (Auto) (0.001-0.429) % Nucleat RBC Rel Count (0.00-0.2) % Eos # (Auto) (0.04-0.36) x10^3/uL Immature Gran # (Auto) (0.001-0.031) x10^3u/L Absolute Lymphs (auto) (1.18-3.74) x10^3/uL Absolute Monos (auto) (0.24-0.86) x10^3/uL Absolute Nucleated RBC (0.00-0.012) x10^3u/L Lymphocytes % (19.3-51.7) % Monocytes % (4.7-12.5) % Eosinophils % (0.7-5.8) % Basophils % (0.1-1.2) % Absolute Granulocytes (1.56-6.13) x10^3/uL Basophils # (0.01-0.08) x10^3/uL Sodium (135-145) mmol/L Potassium (3.5-5.1) mmol/L Chloride (98-107) mmol/L Carbon Dioxide (22-30) mmol/L Anion Gap (5-15) MEQ/L BUN (7-17) mg/dL Creatinine (0.52-1.04) mg/dL Estimated GFR ML/MIN Glucose (74-106) mg/dL Lactic Acid (0.4-2.0) Calcium (8.4-10.2) mg/dL Total Bilirubin (0.2-1.3) mg/dL AST (14-36) U/L ALT (0-35) U/L Alkaline Phosphatase (38-126) U/L Troponin I < 0.012 (0.000-0.033) ng/mL Serum Total Protein (6.3-8.2) g/dL Albumin (3.5-5.0) g/dL - Radiology Impressions Radiology Exams & Impressions: Radiology Procedures Category Date Time Status CHEST 1 VIEW (PORTABLE) Stat Exams 05/12/25 23:43 Taken HEAD WITHOUT CONTRAST [CT] Stat Exams 05/13/25 03:00 Completed HUMERUS Stat Exams 05/12/25 23:42 Taken SHOULDER Stat Exams 05/12/25 23:42 Taken SHOULDER Stat Exams 05/13/25 01:54 Taken - Other Procedures and Tests Respiratory Therapy 05/13/25 04:15 Oxygen Nasal Cannula 2 lpm Assessment/Plan (1) Seizure Current Visit: Yes Status: Acute Assessment & Plan: 49 female with medical history of seizure, HTN presented to ER with complaint of breakthrough seizure due to medication noncompliance. Admitted for breakthrough seizure. Placed on observation unit likely requiring less than 2 midnight stay. #Breakthrough seizure CT head no acute finding. Resume home medication Keppra 2000 mg IV twice daily, seizure precaution, as needed Ativan for seizure. We will keep patient n.p.o. for now till mental status improvement. Telemedicine Statement: 1) Service was provided using HIPAA compliant platform utilizing [employer] for audio/visual equipment. 2) Patient location:[facility] 3) Provider location: [place] 4) Participants intelligence applications: Bedside RN, patient 5) Consent was obtained and the patient was seen with nurse assisting at the bedside. Anticipated length of stay: I anticipate the patient requires hospital level of care for at least < 2 midnights or longer based on the complexity of the patient's medical illness break thru seizure which includes the need for IV ativan and keppra that cannot be done at a lower level of care Consent: - Patients identity was confirmed. I spent total of 72 minutes providing care to this patient which includes time for face to face visit via telemedicine, review of medical records, imaging studies Code(s): R56.9 - UNSPECIFIED CONVULSIONS Telemedicine Encounter - Telemedicine Encounter Telemedicine Encounter: "The entirety of this encounter was performed via Telemedicine" This visit was performed using real-time audio and video connection between my location and thepatients locationwith the assistance of a surrogateat the patients location. Written or verbal consent was obtained from the patient/ guardian to perform this visit [facility] technology. Any patient questions regarding the telemedicine interaction were answered.
[2025-05-13 07:32] VITALS: O2SAT 91
--- NOTE | 2025-05-13 08:14 | XRAY ---
Indication: Chest pain. Comparison: May 03, 2024 Portable chest remains inflated and clear. Heart not enlarged. Bony thorax intact again with incompletely visualized mid to lower cervical fusion hardware. No new/acute findings.
--- NOTE | 2025-05-13 08:16 | XRAY ---
Indication: Post reduction. Comparison: Taken earlier in the day. 3 View left shoulder unchanged. Again no bony, articular, or soft tissue abnormalities.
--- NOTE | 2025-05-13 08:16 | XRAY ---
Indication: Pain following fall. Comparison: None 2 view left humerus obtained. No bony, articular, or soft tissue abnormalities.
--- NOTE | 2025-05-13 08:16 | XRAY ---
Indication: Pain following fall. Comparison: None 3 view left shoulder obtained. No bony, articular, or soft tissue abnormalities.
[2025-05-13] MEDS: HEPARIN 5000 UNITS/0.5 ML (HIGH RISK MED) SQ SCH (09:26)
[2025-05-13] MEDS ORDERED: FEVERALL 650 MG PR PRN (11:54)
[2025-05-13 12:26] VITALS: BP 134/72; PULSE 75; RESP 16; TEMP 97.6
[2025-05-13] MEDS ORDERED: TYLENOL 325 MG PO PRN (12:58)
--- NOTE | 2025-05-13 13:17 | PCM.DS ---
Discharge Summary Date of Admission: 05/13/25 04:06 Date of Discharge: 05/13/25 Admitting Physician: CORIN FRIEDMAN MD Primary Care Provider: FRANSISCA RAY Allergies Allergies ca Allergy (Severe, Verified 05/12/25 23:49) Swelling pregabalin [From Lyrica] Allergy (Severe, Verified 05/12/25 23:49) amoxicillin Allergy (Intermediate, Verified 05/12/25 23:49) Rash Penicillins Allergy (Intermediate, Verified 05/12/25 23:49) Vomiting propoxyphene HCl [From Darvon] Allergy (Intermediate, Verified 05/12/25 23:49) PASS OUT Hospital Summary - Hospital Course Hospital Course: Ms. Cartagena is a 49-year-old female with a history of epilepsy and hypertension who was brought in by EMS after experiencing multiple seizures. Per EMS, the patient had two seizures en route to the hospital and was administered 4 mg of intramuscular Versed (midazolam) with stabilization of seizure activity. On arrival to the Emergency Department, the patient was alert, awake, and oriented 3, and able to converse clearly. She reported experiencing left shoulder pain and chest pressure prior to the onset of seizures. Notably, she had just started using sublingual nitroglycerin as needed for chest pressure on the day of admission. She denied sustaining head trauma but did report that she fell during the seizure and may have hit her head. The patient admitted to missing the last three consecutive doses of her home antiepileptic medication, Keppra (levetiracetam), which she takes at a high dose of 2000 mg twice daily. She stated that due to emotional distress related to the recent loss of a close friend, she had not been adherent with her medications. She also reported a baseline pattern of daily small seizures and larger seizures 34 times per week, which she considers her personal seizure baseline and generally controlled with her usual Keppra regimen. Upon presentation and during hospitalization, she was noted to be postictal with gradual return to baseline mental status over several hours. No additional seizures were witnessed during her inpatient observation. She tolerated oral intake, ambulated independently, and returned to her usual level of functioning prior to discharge. The patient was admitted to the observation unit for evaluation and management of breakthrough seizure activity secondary to antiepileptic medication nonadherence. She was initially kept NPO during the postictal state and then resumed oral intake without difficulty. Intravenous Keppra was administered in the ED and transitioned back to oral once her mental status allowed. Imaging included a non-contrast CT head, which revealed no acute intracranial pathology. Additionally, left shoulder and humerus X-rays were obtained due to reported pain and history of fall, which demonstrated no acute fracture or dislocation. Laboratory evaluation including CBC, CMP, magnesium, and glucose were all within normal limits. No evidence of infection, electrolyte abnormality, or metabolic disturbance was found. Her vital signs remained stable during the hospital stay. She was educated on seizure precautions, medication adherence, and instructed to follow up with neurology for continued care. I spent 35 minutes [id number] with the patient on the day of discharge performing discharge exam, discussing hospital stay and discharge instructions with patient and caregivers, preparation of discharge records, prescriptions & referral forms and addressing any questions/concerns the patient had as documented above. - Vitals & Intake/Output Vital Signs: Vital Signs Temperature 97.6 F 05/13/25 12:00 Pulse Rate 75 05/13/25 12:00 Respiratory Rate 16 05/13/25 12:00 Blood Pressure 134/72 05/13/25 12:00 O2 Sat by Pulse Oximetry 91 L 05/13/25 12:00 Intake & Output: Intake & Output 05/11/25 05/12/25 05/13/25 05/14/25 11:59 11:59 11:59 11:59 Intake Total 120 240 Balance 120 240 Weight 105.6 kg - Lab Result Diagrams: 05/12/25 23:55 05/12/25 23:55 Lab Results-Last 24 Hrs: Lab Results-Last 24 Hours 05/12/25 05/12/25 05/12/25 Range/Units 23:55 23:55 23:55 WBC 8.1 (3.98-10.04) x10^3/uL RBC 3.63 L (3.93-5.22) x10^6/uL Hgb 12.0 (11.2-15.7) g/dL Hct 35.1 (34.1-44.9) % MCV 96.7 H (79.4-94.8) fL MCH 33.1 H (25.6-32.2) pg MCHC 34.2 (32.2-35.5) g/dL RDW 13.0 (11.7-14.4) % Plt Count 314 (182-369) x10^3/uL MPV 9.6 (9.4-12.3) fL Gran % 58.5 (34.0-71.1) % Immature Gran % (Auto) 0.1 (0.001-0.429) % Nucleat RBC Rel Count 0.0 (0.00-0.2) % Eos # (Auto) 0.47 H (0.04-0.36) x10^3/uL Immature Gran # (Auto) 0.01 (0.001-0.031) x10^3u/L Absolute Lymphs (auto) 2.20 (1.18-3.74) x10^3/uL Absolute Monos (auto) 0.63 (0.24-0.86) x10^3/uL Absolute Nucleated RBC 0.00 (0.00-0.012) x10^3u/L Lymphocytes % 27.0 (19.3-51.7) % Monocytes % 7.7 (4.7-12.5) % Eosinophils % 5.8 (0.7-5.8) % Basophils % 0.9 (0.1-1.2) % Absolute Granulocytes 4.76 (1.56-6.13) x10^3/uL Basophils # 0.07 (0.01-0.08) x10^3/uL Sodium 140 (135-145) mmol/L Potassium 3.5 (3.5-5.1) mmol/L Chloride 111 H (98-107) mmol/L Carbon Dioxide 22 (22-30) mmol/L Anion Gap 10.5 (5-15) MEQ/L BUN 15 (7-17) mg/dL Creatinine 0.74 (0.52-1.04) mg/dL Estimated GFR 98.5 ML/MIN Glucose 107 H (74-106) mg/dL Lactic Acid 0.7 (0.4-2.0) Calcium 9.0 (8.4-10.2) mg/dL Total Bilirubin 0.40 (0.2-1.3) mg/dL AST 19 (14-36) U/L ALT 11 (0-35) U/L Alkaline Phosphatase 60 (38-126) U/L Troponin I (0.000-0.033) ng/mL Serum Total Protein 6.3 (6.3-8.2) g/dL Albumin 3.8 (3.5-5.0) g/dL 05/12/25 Range/Units 23:55 WBC (3.98-10.04) x10^3/uL RBC (3.93-5.22) x10^6/uL Hgb (11.2-15.7) g/dL Hct (34.1-44.9) % MCV (79.4-94.8) fL MCH (25.6-32.2) pg MCHC (32.2-35.5) g/dL RDW (11.7-14.4) % Plt Count (182-369) x10^3/uL MPV (9.4-12.3) fL Gran % (34.0-71.1) % Immature Gran % (Auto) (0.001-0.429) % Nucleat RBC Rel Count (0.00-0.2) % Eos # (Auto) (0.04-0.36) x10^3/uL Immature Gran # (Auto) (0.001-0.031) x10^3u/L Absolute Lymphs (auto) (1.18-3.74) x10^3/uL Absolute Monos (auto) (0.24-0.86) x10^3/uL Absolute Nucleated RBC (0.00-0.012) x10^3u/L Lymphocytes % (19.3-51.7) % Monocytes % (4.7-12.5) % Eosinophils % (0.7-5.8) % Basophils % (0.1-1.2) % Absolute Granulocytes (1.56-6.13) x10^3/uL Basophils # (0.01-0.08) x10^3/uL Sodium (135-145) mmol/L Potassium (3.5-5.1) mmol/L Chloride (98-107) mmol/L Carbon Dioxide (22-30) mmol/L Anion Gap (5-15) MEQ/L BUN (7-17) mg/dL Creatinine (0.52-1.04) mg/dL Estimated GFR ML/MIN Glucose (74-106) mg/dL Lactic Acid (0.4-2.0) Calcium (8.4-10.2) mg/dL Total Bilirubin (0.2-1.3) mg/dL AST (14-36) U/L ALT (0-35) U/L Alkaline Phosphatase (38-126) U/L Troponin I < 0.012 (0.000-0.033) ng/mL Serum Total Protein (6.3-8.2) g/dL Albumin (3.5-5.0) g/dL - Radiology Exams Ordered Rad Exams-Entire Visit: Radiology Procedures Category Date Time Status CHEST 1 VIEW (PORTABLE) Stat Exams 05/12/25 23:43 Completed HEAD WITHOUT CONTRAST [CT] Stat Exams 05/13/25 03:00 Completed HUMERUS Stat Exams 05/12/25 23:42 Completed SHOULDER Stat Exams 05/12/25 23:42 Completed SHOULDER Stat Exams 05/13/25 01:54 Completed - Procedures and Test Procedures and Tests throughout Hospitalization: Therapy Orders & Screens 05/13/25 04:15 Oxygen Nasal Cannula 2 lpm Comment: 05/13/25 05:03 OT Eval and Treat (MD Order) ONCE Comment: Physician Instructions: Reason For Exam: Diagnosis: seizure Discharge Exam General Appearance: no apparent distress Neurologic Exam: alert, 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, cooperative Eye Exam: PERRL Ears, Nose, Throat Exam: normal ENT inspection Neck Exam: normal inspection Respiratory Exam: normal breath sounds, lungs clear Cardiovascular Exam: regular rate/rhythm, normal heart sounds Pelvic Exam: deferred Rectal Exam: deferred Back Exam: normal inspection Extremity Exam: normal inspection Skin Exam: normal color Final Diagnosis/Problem List - Final Discharge Diagnosis/Problem (1) Breakthrough seizure Current Visit: No Status: Acute Assessment & Plan: Precipitated by missed Keppra doses x3 Managed with IV benzodiazepines and Keppra in ED; transitioned to oral maintenance dosing CT head: No acute findings Resume home Keppra 2000 mg PO BID Prescribed Ativan 1 mg PO PRN for seizure activity Educated on importance of strict medication adherence and seizure triggers Reinforce seizure precautions (no driving, bathing unsupervised, swimming, etc.) Neurology follow-up within 12 weeks for medication review and seizure management Return precautions provided (recurrent seizures, prolonged postictal state, injury, or altered mentation) Encourage use of medication reminders (pill box, alarms) and support during periods of emotional distress Code(s): G40.919 - EPILEPSY, UNSP, INTRACTABLE, WITHOUT STATUS EPILEPTICUS (2) Fall Current Visit: Yes Status: Acute Assessment & Plan: CT head negative No neurological deficits Observation completed during inpatient stay Continue fall precautions Monitor for delayed signs of intracranial injury (headache, vomiting, confusion) Code(s): W19.XXXA - UNSPECIFIED FALL, INITIAL ENCOUNTER (3) Epilepsy Current Visit: Yes Status: Acute Assessment & Plan: see above Code(s): G40.909 - EPILEPSY, UNSP, NOT INTRACTABLE, WITHOUT STATUS EPILEPTICUS (4) Left shoulder pain Current Visit: Yes Status: Acute Assessment & Plan: X-rays negative for fracture/dislocation Likely soft tissue injury NSAIDs as needed Ice, rest, and limit overhead activity Outpatient follow-up if pain persists beyond 57 days or worsens Code(s): M25.512 - PAIN IN LEFT SHOULDER (5) HTN (hypertension) Current Visit: Yes Status: Acute Assessment & Plan: Stable during hospitalization Code(s): I10 - ESSENTIAL (PRIMARY) HYPERTENSION (6) Smoker Current Visit: No Status: Chronic Assessment & Plan: Counseling provided on smoking cessation Referral to cessation resources encouraged Code(s): F17.200 - NICOTINE DEPENDENCE, UNSPECIFIED, UNCOMPLICATED - Discharge Discharge Date: 05/13/25 Disposition: Home, Self-Care Condition: Stable Prescriptions: Continue levETIRAcetam [Levetiracetam] 1,000 mg PO BID Hydroxychloroquine Sulfate 200 mg PO DAILY Metoprolol Tartrate 25 mg [Lopressor 25MG Tab] 25 mg PO DAILY Lisinopril 10 mg [Zestril 10 MG] 10 mg PO HS hydrOXYzine pamoate [Hydroxyzine Pamoate] 50 mg PO HS Ondansetron ODT 4 MG [Zofran Odt 4 mg] 4 mg PO Q6H PRN PRN #20 tablet PRN Reason: Vomiting Follow up with: FRANSISCA RAY NP [Primary Care Provider, [facility]]
[2025-05-13] MEDS ORDERED: KEPPRA ONE (13:42)
[2025-05-13] MEDS: KEPPRA PO STA (13:43)
== END 2025-05-13 13:53 | disposition home or self-care (01) ==
LOC: ED 23:37 → MED SURG 05-13 04:06
PROVIDERS: ADMIT Internal Medicine; ATTEND Internal Medicine
DX: G40.919 Epilepsy, unspecified, intractable, without status epilepticus (principal); W19.XXXA Unspecified fall, initial encounter; M25.512 Pain in left shoulder; I10 Essential (primary) hypertension; F17.200 Nicotine dependence, unspecified, uncomplicated; Z79.899 Other long term (current) drug therapy
CPT/HCPCS: 36415; 70450; 71045; 73030; 73060; 80053; 80177; 83605; 84146; 84484; 85025; 93005; 96374; 99285; G0378; Q3014

== ENCOUNTER 2025-07-11 16:19 | Emergency (ER) | payer OTHER ==
--- NOTE | 2025-07-11 17:07 | ERPHSYRPT ---
- History of Present Illness Time Seen by Provider: 07/11/25 17:06 Source: patient Exam Limitations: no limitations Physician History: This is an obese 49-year-old white female patient has had a migraine headache for 2 days. The location is left side occipital region. She also has pain in the left trapezius muscle as well. She feels as though there is a spasm in that area. Patient did not suffer any acute head trauma. Patient has not had any visual changes but she does have light sensitivity. Patient took ibuprofen at 1030 earlier today. She has not been taking any narcotics. Patient describes the pain as constant and aching. Patient has a history of migraine headaches, obesity, seizure disorder, hypertension, COPD, anxiety, bipolar schizophrenia, degenerative disc disease, fibromyalgia and PTSD Timing/Duration: day(s) (2) Quality: aching Head Pain Location: occipital (Left side) Severity of Pain-Max: moderate Severity of Pain-Current: moderate Recent Head Trauma: no recent headache/trauma, occasional headaches Modifying Factors: Improves With: exposure to light, noise Associated Symptoms: sensitive to light Previous symptoms: same symptoms as today, no recent treatment Allergies/Adverse Reactions: ca Allergy (Severe, Verified 07/11/25 16:58) Swelling pregabalin [From Lyrica] Allergy (Severe, Verified 07/11/25 16:58) amoxicillin Allergy (Intermediate, Verified 07/11/25 16:58) Rash Penicillins Allergy (Intermediate, Verified 07/11/25 16:58) Vomiting propoxyphene HCl [From Darvon] Allergy (Intermediate, Verified 07/11/25 16:58) PASS OUT Home Medications: levETIRAcetam [Levetiracetam] 1,000 mg PO BID 02/20/19 [History] Hydroxychloroquine Sulfate 200 mg PO DAILY 02/19/23 [History] Metoprolol Tartrate 25 mg [Lopressor 25MG Tab] 25 mg PO DAILY 07/11/24 [History] Lisinopril 10 mg [Zestril 10 MG] 10 mg PO HS 08/23/24 [History] hydrOXYzine pamoate [Hydroxyzine Pamoate] 50 mg PO HS 12/30/24 [History] PANTOPRAZOLE 40 mg Tablet [Protonix 40MG Tablet] 40 mg PO DAILY 07/11/25 [History] Ranolazine 500 MG [Ranexa 500 MG] 500 mg PO BID 07/11/25 [History] Hx Tetanus, Diphtheria Vaccination/Date Given: Yes Hx Influenza Vaccination/Date Given: Yes Hx Pneumococcal Vaccination/Date Given: No Travel Risk - International Travel Have you traveled outside of the country in past 3 weeks: No - Emerging Infectious Disease Are you exhibiting symptoms associated with any current EIDs: No Symptoms: Vomitting - Review of Systems Constitutional: No Symptoms Eyes: No Symptoms Ears, Nose, & Throat: No Symptoms Respiratory: No Symptoms Cardiac: No Symptoms Abdominal/Gastrointestinal: No Symptoms Genitourinary Symptoms: No Symptoms Musculoskeletal: No Symptoms Skin: No Symptoms Neurological: Headache Psychological: No Symptoms Endocrine: No Symptoms Hematologic/Lymphatic: No Symptoms Immunological/Allergic: No Symptoms All Other Systems: Reviewed and Negative - Past Medical History Pertinent Past Medical History: Yes Neurological History: Migraines, Seizures ENT History: No Pertinent History Cardiac History: Hypertension Respiratory History: COPD Endocrine Medical History: Other Musculoskeletal History: Degenerative Disk Disease, Fibromyalgia GI Medical History: Esophageal Disorder, GERD History: Other Psycho-Social History: Anxiety, Bipolar, Depression, Panic Disorder Female Reproductive Disorders: Abnormal Uterine Bleeding Other Medical History: Lupus, Neuropathy, bipolar 1 schizophrenia, PTSD, kidney stones - Past Surgical History Past Surgical History: Yes Neuro Surgical History: No Pertinent History Cardiac: No Pertinent History Respiratory: No Pertinent History Gastrointestinal: No Pertinent History Genitourinary: No Pertinent History Musculoskeletal: Other Female Surgical History: Section, Tubal Ligation, Other Other Surgical History: ABLATION - TUBAL LIGATION. BILATERAL WRIST SURGERY. PLATE AND TWO SCREWS IN THE BACK OF NECK. 12/26/20 Surgery to back. cadaver bone in neck Significant Family History: no pertinent family hx - Female History Hx Last Menstrual Period: 17 years ago - Social History Smoking Status: Current every day smoker How long have you smoked: vape Exposure to second hand smoke: Yes Drug Use: none - Social Determinants of Health Will the patient participate in the screening: Yes Do you worry about a steady place to live?: No In the past 12 months,have you had to go without utilities?: No Transportation Issues: No Has anyone in your support network made you feel unsafe?: No Have you or anyone in your house had to go w/o enough food: No - Nursing Vital Signs Nursing Vital Signs: Initial Vital Signs Temperature 95.6 F 07/11/25 16:58 Pulse Rate 68 07/11/25 16:58 Respiratory Rate 14 07/11/25 16:58 Blood Pressure 100/64 07/11/25 16:58 O2 Sat by Pulse Oximetry 97 07/11/25 16:58 Pain Scale Pain Intensity 8 - Physical Exam General Appearance: mild distress, alert, anxiety, obese Eye Exam: PERRL/EOMI, eyes nml inspection Ears, Nose, Throat Exam: normal ENT inspection, moist mucous membranes Neck Exam: normal inspection, non-tender, supple, full range of motion Respiratory Exam: airway intact, No chest tenderness, No respiratory distress Gastrointestinal/Abdominal Exam: No tenderness Back Exam: normal inspection, normal range of motion, No CVA tenderness, No vertebral tenderness Extremity Exam: normal inspection, normal range of motion, pelvis stable Mental Status Exam: alert, 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, 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 Exam: normal hearing, normal speech, PERRL, tongue midline Coordination/Gait Exam: normal gait, normal cerebellar function Skin Exam: normal color, warm, dry Lymphatic Exam: No adenopathy SpO2 Interpretation: normal O2 Delivery: Room Air - Course Nursing assessment & vital signs reviewed: Yes Ordered Tests: Medication Summary Discontinued Medications Generic Name Dose Route Start Last Admin Trade Name Manish PRN Reason Stop Dose Admin Diphenhydramine HCl 25 mg 07/11/25 18:33 07/11/25 18:43 Diphenhydramine Hcl 50 Mg/Ml Vial IM 07/11/25 18:34 25 mg STAT ONE Administration Diphenhydramine HCl Confirm 07/11/25 18:39 Diphenhydramine Hcl 50 Mg/Ml Vial Administered 07/11/25 18:40 Dose 50 mg .ROUTE .STK-MED ONE Ketorolac Tromethamine 60 mg 07/11/25 18:32 07/11/25 18:41 Ketorolac Tromethamine 30 Mg/Ml Inj IM 07/11/25 18:33 60 mg STAT ONE Administration Ketorolac Tromethamine Confirm 07/11/25 18:38 Ketorolac Tromethamine 30 Mg/Ml Inj Administered 07/11/25 18:39 Dose 60 mg .ROUTE .STK-MED ONE Orphenadrine Citrate 60 mg 07/11/25 18:32 07/11/25 18:43 Orphenadrine Citrate 60 Mg/2 Ml Vial IM 07/11/25 18:33 60 mg STAT ONE Administration Orphenadrine Citrate Confirm 07/11/25 18:39 Orphenadrine Citrate 60 Mg/2 Ml Vial Administered 07/11/25 18:40 Dose 60 mg .ROUTE .STK-MED ONE Prochlorperazine Edisylate 5 mg 07/11/25 18:33 07/11/25 18:40 Prochlorperazine Edisylate 10 Mg/2 Ml Vial IM 07/11/25 18:34 5 mg STAT ONE Administration Prochlorperazine Edisylate Confirm 07/11/25 18:39 Prochlorperazine Edisylate 10 Mg/2 Ml Vial Administered 07/11/25 18:40 Dose 10 mg .ROUTE .STK-MED ONE - Progress Progress: improved, re-examined Air Movement: good Progress Note: 07/11/25 18:59 My medical decision making and the assignment of low complexity of this patient's medical issue today is based on review of the patient's past medical history, reviewed patient's medication list, reviewed patient drug allergy list, history of present illness and physical findings on examination. The workup in this patient does not necessitate radiographic or laboratory studies. The patient will receive a combination of intramuscular and oral medications to help relieve her typical migraine headache. Differential diagnosis includes was not limited to trapezius muscle spasm, migraine headache, cluster headache Counseled pt/family regarding: diagnosis, need for follow-up Medical Desision Making - Diagnostic Testing Diagnostic test were ordered, analyzed, and reviewed by me: No - Risk of complications Low Risk: Low risk of morbidity from additional dx testing or treatment - Departure Departure Disposition: Home Clinical Impression: Migraine headache Condition: Stable Critical Care Time: No Referrals: FRANSISCA RAY NP [Primary Care Provider, [facility]] - Follow up/PCP as directed Additional Instructions: Drink plenty of fluids. Take all your medications as prescribed. Call your primary care provider tomorrow, 07/12/2025, to make arrangements for follow-up appointment for further evaluation and management.
[2025-07-11 17:09] VITALS: TEMP 95.6
[2025-07-11] MEDS ORDERED: TORAdol 30 mg Injection ONE (18:38)
[2025-07-11] MEDS ORDERED: Norflex 60 MG/2 ML ONE (18:39)
[2025-07-11] MEDS ORDERED: BENADRYL 50 MG/ML ONE (18:39)
[2025-07-11] MEDS ORDERED: Compazine 10 MG/2 ML ONE (18:39)
[2025-07-11] MEDS: Compazine 10 MG/2 ML IM ONE (18:40)
[2025-07-11] MEDS: TORAdol 30 mg Injection IM ONE (18:41)
[2025-07-11] MEDS: BENADRYL 50 MG/ML IM ONE (18:43)
[2025-07-11] MEDS: Norflex 60 MG/2 ML IM ONE (18:43)
[2025-07-11 19:07] VITALS: RESP 17
[2025-07-11 19:12] VITALS: BP 112/64; PULSE 54; O2SAT 95
== END 2025-07-11 19:12 | disposition home or self-care (01) ==
LOC: ED 16:19
DX: G43.909 Migraine, unspecified, not intractable, without status migrainosus (principal); I10 Essential (primary) hypertension; Z79.899 Other long term (current) drug therapy; Z72.0 Tobacco use

== ENCOUNTER 2025-07-16 13:54 | Observation (INO) | payer OTHER ==
[2025-07-16 14:07] VITALS: TEMP 97
[2025-07-16 14:21] LABS: BASOPHIL % 1.0 % (0.1-1.2); Basophil (Absolute #) 0.07 x10^3/uL (0.01-0.08); Eosinophil (Absolute #) 0.21 x10^3/uL (0.04-0.36); Hematocrit 35.5 % (34.1-44.9); Hemoglobin 11.8 g/dL (11.2-15.7); IMMATURE GRAN # 0.03 x10^3u/L (0.001-0.031); IMMATURE GRAN % 0.4 % (0.001-0.429); Lymphocyte (Absolute #) 1.64 x10^3/uL (1.18-3.74); Mean Corpuscular Hemoglobin 32.1 pg (25.6-32.2); Mean Corpuscular Hgb Concent. 33.2 g/dL (32.2-35.5); Monocyte (Absolute #) 0.58 x10^3/uL (0.24-0.86); NUCLEATED RBC # 0.00 x10^3u/L (0.00-0.012); NUCLEATED RBC % 0.0 % (0.00-0.2); Platelet Count 296 x10^3/uL (182-369); Red Blood Count 3.68 x10^6/uL (3.93-5.22); White Blood Count 7.2 x10^3/uL (3.98-10.04)
[2025-07-16] MEDS ORDERED: TYLENOL 325 MG ONE (14:24)
[2025-07-16] MEDS: TYLENOL 325 MG PO ONE (14:25)
[2025-07-16 14:36] LABS: Calcium 9.1 mg/dL (8.4-10.2); Carbon Dioxide 26.0 mmol/L (22-30); Creatinine 1 0.89 mg/dL (0.52-1.04); EST GLOMERULAR FILTRATION RATE 78.9 ML/MIN; Glucose 103.0 mg/dL (74-106); Potassium 3.8 mmol/L (3.5-5.1); SGOT/AST 19.0 U/L (14-36); SGPT/ALT 14.0 U/L (0-35); Total Protein 7.0 g/dL (6.3-8.2)
[2025-07-16 14:48] LABS: NT PRO BNPII 150 pg/mL (<300); TROPONIN < 0.012 ng/mL (0.000-0.033)
[2025-07-16 14:58] LABS: HCG SERUM TEST NEGATIVE (NEGATIVE)
[2025-07-16 15:09] LABS: Glucose, Urine Negative (Negative); Protein,Urine Dip Negative (Negative); RBC 0-2 /HPF (0-5); WBC 0-2 /HPF (0-5)
--- NOTE | 2025-07-16 16:13 | XRAY ---
CLINICAL HISTORY: feels off balance COMPARISON: No previous studies are available for comparison. TECHNIQUE: CT angiography of the neck was performed following the intravenous administration of 80 ml Isovue 370 of iodinated contrast material. Axial images were obtained from the aortic arch to the vertex. Coronal and sagittal reformatted images were also reviewed. One of the following dose reduction techniques was utilized for this exam: automated exposure control, adjustment of the mA and/or kV according to patient size, and use of iterative reconstruction. One of these 3D techniques was utilized: maximum intensity pixel (MIP), 3D reconstructed images, volume rendered images, or surface shaded rendering. FINDINGS: Carotid Arteries: The common, internal, and external carotid arteries are patent bilaterally with no evidence of significant stenosis, aneurysm, or dissection. There is no evidence of atherosclerotic plaque causing significant luminal narrowing. Vertebral Arteries: The vertebral arteries are patent bilaterally with no evidence of significant stenosis, aneurysm, or dissection. Thyroid Gland: The thyroid gland is normal in size and appearance, with no focal lesions. Lymph Nodes: Bilateral reactive small cervical lymphadenopathy is present. Soft Tissues: The soft tissues of the neck are unremarkable, with no evidence of masses or abnormal collections. Additional Findings: Bilateral apical mild lung emphysematous changes are present. Mild aortic arch atherosclerotic calcifications are noted. Status post cervical spine internal fixation from C4-C7. IMPRESSION: Normal CT angiography of the neck. No evidence of significant vascular abnormalities. Electronically Signed by: Willian Solano MD. (07/16/2025 16:12:09 EDT)
--- NOTE | 2025-07-16 16:15 | XRAY ---
CLINICAL HISTORY: feels off balance COMPARISON: No previous CTA studies are available for comparison. Compared to CT head 05/13/2025. TECHNIQUE: CT angiography of the head was performed following the intravenous administration of 80 ml Isovue 370 of iodinated contrast material. Contiguous axial images were obtained from the base of the skull to the vertex. Coronal and sagittal reformatted images were also reviewed. One of these 3D techniques was utilized: Maximum Intensity Pixel (MIP), 3D Reconstructed Images, Volume Rendered Images, or Surface Shaded Rendering. One of the following dose reduction techniques was utilized for this exam: automated exposure control, adjustment of the mA and/or kV according to patient size, and use of iterative reconstruction. Axial non-contrast CT scan of the brain was performed from the skull base to the high parietal region. One of the following dose reduction techniques was utilized for this exam: automated exposure control, adjustment of the mA and/or kV according to patient size, and use of iterative reconstruction. FINDINGS: Intracranial Arteries: The intracranial arteries, including the anterior cerebral arteries, middle cerebral arteries, posterior cerebral arteries, basilar artery, and vertebral arteries, are all patent without evidence of significant stenosis, aneurysm, or dissection. There is no evidence of vascular malformations. [place]: The [place] is intact, with no anatomical variations or abnormalities noted. All segments are well visualized and normal in appearance. Soft Tissues: The visualized soft tissues of the head are unremarkable. Brain Parenchyma: Normal attenuation of the cerebral hemispheres, cerebellum, and brainstem. No evidence of acute infarct, hemorrhage, or mass effect. No abnormal areas of hypoattenuation or hyperattenuation. Ventricular System: The ventricles are normal in size and configuration. No evidence of hydrocephalus or ventricular enlargement. Subarachnoid Spaces: The sulci and cisterns are normal. There is no evidence of subarachnoid hemorrhage or extra-axial fluid collections. Cerebellum and Brainstem: There are no masses, lesions, or areas of abnormal density. Orbits: Normal appearance of the globes, optic nerves, and extraocular muscles. There is no evidence of orbital masses or abnormal density. Sinuses: The paranasal sinuses are clear. There is no evidence of sinusitis or mucosal thickening. Mastoid Air Cells: The mastoid air cells are clear. There is no evidence of mastoiditis. Skull: Normal skull morphology. IMPRESSION: 1. Normal CT angiography of the head. No evidence of significant vascular abnormalities, acute infarct, or hemorrhage. 2. Normal CT of the head without contrast. 3. Compared to CT head 05/13/2025. No interval change. Electronically Signed by: Willian Solano MD. (07/16/2025 16:14:32 EDT)
--- NOTE | 2025-07-16 16:47 | XRAY ---
CLINICAL HISTORY: lower back and hip pain, fall COMPARISON: Comparison is made with previous CT at 03/14/2024 13:59:24 [employer]. TECHNIQUE: Non-contrast CT of the abdomen and pelvis was performed, with the following protocol: axial images, and reconstructed coronal and sagittal images. No intravenous contrast was administered. One of the following dose reduction techniques was utilized for this exam: Automated exposure control, adjustment of the mA and/or kV according to patient size, and use of iterative reconstruction. FINDINGS: Abdomen: Liver: Normal in size, shape, and density. No focal lesions, cysts, or masses were identified. Gallbladder and Biliary System: The gallbladder is contracted but no gross pathology. Pancreas: Pancreatic head, body, and tail are visualized and appear normal in size and density. No pancreatic masses or calcifications were noted. Spleen: Unchanged multiple calcified foci in the spleen, most likely corresponding to granulomas. Normal in size. Kidneys and Adrenal Glands: Unchanged left renal upper polar non-enhancing cortical cyst about 2.5 cm (Bosniak type I). The presence of renal stones could not be assessed due to the presence of contrast material. Hyperdense material seen in both pelvicalyceal systems, ureters and urinary bladder due to a previous contrasted study. Both kidneys are normal in size, shape, and position. Cortical thickness is within normal limits. No hydronephrosis. Adrenal glands are unremarkable. Appendix: The appendix is normal in size without silviano appendiceal fat stranding, and without an appendicolith. No evidence of appendiceal abscess or perforation. Pelvis: Urinary Bladder: Normal in contour and wall thickness. No intraluminal lesions. Uterus: Normal in size and contour. No masses or abnormal thickening. Ovaries: Not well visualized but no gross abnormalities noted. Vagina: Normal in contour and wall thickness. Cervix: No evidence of mass or abnormal thickening. Peritoneal and Retroperitoneal Structures: No free fluid or abnormal fluid collections were identified within the abdomen or pelvis. No lymphadenopathy was noted. Small hiatal hernia noted. with gastroesophgeal junction wall thickening. UNnchaged. Left fat-containing inguinal hernia noted. Bowel: Unchanged few small size rounded outpouchings are seen arising from the outer wall of the sigmoid colon consistent with colonic diverticulosis. No evidence of diverticulitis. Fecal loading in the large bowel mainly at the rectum. No evidence of bowel obstruction or wall thickening. Bones and Soft Tissues: Pelvic bones and soft tissues are unremarkable. Mild degenerative changes of the visible spine noted. No fractures or abnormal masses were identified. Tiny partially calcified pulmonary nodule in the right lung base measures about 6 mm. Stable. Left basal atelectatic band noted. Minimal interlobular septal thickening noted in both visible lungs. IMPRESSION: 1. No acute abdominal pathology. No acute fractures. 2. Unchanged colonic diverticulosis. No evidence of diverticulitis. 3. Small hiatal hernia noted. with gastroesophgeal junction wall thickening. UNnchaged. 4. Left fat-containing inguinal hernia noted. Stable. 5. Unchanged other findings as detailed in the report. Electronically Signed by: Willian Solano MD. (07/16/2025 16:46:01 EDT)
[2025-07-16] MEDS: MORPHINE SULFATE 2 MG INJ IV ONE (17:44)
[2025-07-16] MEDS ORDERED: MORPHINE SULFATE 2 MG INJ ONE (17:44)
--- NOTE | 2025-07-16 18:08 | ERPHSYRPT ---
- History of Present Illness Time Seen by Provider: 07/16/25 13:56 Source: patient, family Patient Subjective Stated Complaint: pt here co's of chest pain today to left side of chest. and not acting normal yesteday, after falling yesterday, she states she lost her balance. she states she is acting normal now Triage Nursing Assessment: pt alert,oriented, walked in, resp easy, no cough, moves all ext well, chest clear, abd soft Physician History: HISTORY OF PRESENT ILLNESS 49-year-old female with history of migraines, chest pain, seizures, and hypertension presents with feeling off, chest pain, and headaches ongoing for the past 2 days; she last felt normal 2 nights ago. She denies syncopal episodes and reports bruising on her right thigh from a prior fall but has remained ambulatory since then. She notes no focal neurological deficits, with strength and sensation intact in all extremities. HEALTHCARE PROVIDERS - Hospitalist Dr. Hernandez (hospitalist team) PAST MEDICAL HISTORY - History of migraines, chest pain, seizures, and hypertension. Allergies/Adverse Reactions: ca Allergy (Severe, Verified 07/16/25 13:56) Swelling pregabalin [From Lyrica] Allergy (Severe, Verified 07/16/25 13:56) amoxicillin Allergy (Intermediate, Verified 07/16/25 13:56) Rash Penicillins Allergy (Intermediate, Verified 07/16/25 13:56) Vomiting propoxyphene HCl [From Darvon] Allergy (Intermediate, Verified 07/16/25 13:56) PASS OUT Home Medications: levETIRAcetam [Levetiracetam] 1,000 mg PO BID 02/20/19 [History] Hydroxychloroquine Sulfate 200 mg PO DAILY 02/19/23 [History] Metoprolol Tartrate 25 mg [Lopressor 25MG Tab] 25 mg PO DAILY 07/11/24 [History] Lisinopril 10 mg [Zestril 10 MG] 10 mg PO HS 08/23/24 [History] hydrOXYzine pamoate [Hydroxyzine Pamoate] 50 mg PO HS 12/30/24 [History] PANTOPRAZOLE 40 mg Tablet [Protonix 40MG Tablet] 40 mg PO DAILY 07/11/25 [History] Ranolazine 500 MG [Ranexa 500 MG] 500 mg PO BID 07/11/25 [History] Hx Tetanus, Diphtheria Vaccination/Date Given: Yes Hx Influenza Vaccination/Date Given: Yes Hx Pneumococcal Vaccination/Date Given: No Immunizations Up to Date: Yes Travel Risk - International Travel Have you traveled outside of the country in past 3 weeks: No - Emerging Infectious Disease Are you exhibiting symptoms associated with any current EIDs: No Symptoms: Vomitting - Past Medical History Pertinent Past Medical History: Yes Neurological History: Migraines, Seizures ENT History: No Pertinent History Cardiac History: Hypertension Respiratory History: COPD Endocrine Medical History: Other Musculoskeletal History: Degenerative Disk Disease, Fibromyalgia GI Medical History: Esophageal Disorder, GERD History: Other Psycho-Social History: Anxiety, Bipolar, Depression, Panic Disorder Female Reproductive Disorders: Abnormal Uterine Bleeding Other Medical History: Lupus, Neuropathy, bipolar 1 schizophrenia, PTSD, kidney stones - Past Surgical History Past Surgical History: Yes Neuro Surgical History: No Pertinent History Cardiac: No Pertinent History Respiratory: No Pertinent History Gastrointestinal: No Pertinent History Genitourinary: No Pertinent History Musculoskeletal: Other Female Surgical History: Section, Tubal Ligation, Other Other Surgical History: ABLATION - TUBAL LIGATION. BILATERAL WRIST SURGERY. PLATE AND TWO SCREWS IN THE BACK OF NECK. 12/26/20 Surgery to back. cadaver bone in neck Significant Family History: no pertinent family hx - Female History Hx Last Menstrual Period: 17 years ago Hx Now: No - Social History Smoking Status: Current every day smoker How long have you smoked: vape Exposure to second hand smoke: Yes Drug Use: none - Social Determinants of Health Will the patient participate in the screening: Yes Do you worry about a steady place to live?: No Do you have any problems with any of the following?: No known problems In the past 12 months,have you had to go without utilities?: No Transportation Issues: No Has anyone in your support network made you feel unsafe?: No Have you or anyone in your house had to go w/o enough food: No - Nursing Vital Signs Nursing Vital Signs: Initial Vital Signs Temperature 97 F 07/16/25 14:04 Pulse Rate 83 07/16/25 14:04 Respiratory Rate 20 07/16/25 14:04 Blood Pressure 110/63 07/16/25 14:04 O2 Sat by Pulse Oximetry 97 07/16/25 14:04 Pain Scale Pain Intensity 10 - Physical Exam SpO2: 99 Comments: 07/16/25 18:45 PHYSICAL EXAM Vitals: Reviewed in chart. General: Moving all extremities; No focal deficits. HEENT: Pupils equal, round, reactive bilaterally; EOMI. Respiratory: Respirations are non-labored; Symmetrical chest wall expansion. Cardiovascular: 2+ radial pulse; No peripheral edema; No leg swelling; Normal rate. GI: Non-tender. Integumentary: Warm. Musculoskeletal: Moving all extremities. Neurologic: Strength and sensation intact bilateral upper and lower extremities; Intact [id number]; Moving all extremities; No clonus; 2+ patellar reflexes. States she feels off balance. Psychiatric: Appropriate. Ordered Tests: Active Orders 24 hr Category Date Time Status Register Of Wills STAT Care 07/16/25 14:06 Active EKG-ER Only STAT Care 07/16/25 14:03 Active IV Insertion STAT Care 07/16/25 14:03 Active Pulse Oximetry (ED) STAT Care 07/16/25 14:03 Active Re-Check Vital Signs STAT Care 07/16/25 14:03 Active ABDOMEN AND PELVIS W/0 CONTRAS [CT] Stat Exams 07/16/25 15:40 Completed CHEST 1 VIEW (PORTABLE) Stat Exams 07/16/25 15:40 Taken CTA HEAD W AND/OR WO CONTRAST [CT] Stat Exams 07/16/25 15:12 Completed FEMUR Stat Exams 07/16/25 15:40 Taken NECK W/WO CONTRAST [CT] Stat Exams 07/16/25 15:12 Completed CBC W DIFF Stat Lab 07/16/25 14:15 Completed CMP Stat Lab 07/16/25 14:15 Completed HCG QUALITATIVE, SERUM Stat Lab 07/16/25 14:15 Completed NT PRO BNPII Stat Lab 07/16/25 14:15 Completed TROPONIN Q4H Lab 07/16/25 14:15 Completed TROPONIN Q4H Lab 07/16/25 18:25 Received TROPONIN Q4H Lab 07/16/25 22:15 Ordered UA W/RFX UR CULTURE Stat Lab 07/16/25 14:34 Completed Transfer Order Routine Transfer 07/16/25 Ordered Medication Summary Discontinued Medications Generic Name Dose Route Start Last Admin Trade Name Freq PRN Reason Stop Dose Admin Acetaminophen 975 mg 07/16/25 14:03 07/16/25 14:25 Acetaminophen 325 Mg Tablet PO 07/16/25 14:04 975 mg STAT ONE Administration Acetaminophen Confirm 07/16/25 14:24 Acetaminophen 325 Mg Tablet Administered 07/16/25 14:25 Dose 975 mg .ROUTE .STK-MED ONE Cefepime HCl Confirm 07/16/25 18:37 Cefepime Hcl 1 Gm Vial Administered 07/16/25 18:38 Dose 1 g .ROUTE .STK-MED ONE Sodium Chloride 1,000 mls @ 999 mls/hr 07/16/25 14:03 07/16/25 15:59 Sodium Chloride 0.9% 1000 Ml IV 07/16/25 15:03 Infused .Q1H1M STA Infusion Sodium Chloride Confirm 07/16/25 14:24 Sodium Chloride 0.9% 1000 Ml Administered 07/16/25 14:25 Dose 1,000 mls @ ud .ROUTE .STK-MED ONE Cefepime HCl 1 g/ Sodium 100 mls @ 200 mls/hr 07/16/25 18:01 07/16/25 18:39 Chloride IV 07/16/25 18:30 200 mls/hr STAT STA 200 mls/hr Administration Sodium Chloride Confirm 07/16/25 18:37 Sodium Chloride 0.9% Administered 07/16/25 18:38 Dose 100 mls @ ud .ROUTE .STK-MED ONE Morphine Sulfate 2 mg 07/16/25 17:36 07/16/25 17:44 Morphine Sulfate 2 Mg/Ml Inj IV 07/16/25 17:37 2 mg STAT ONE Administration Morphine Sulfate Confirm 07/16/25 17:44 Morphine Sulfate 2 Mg/Ml Inj Administered 07/16/25 17:45 Dose 2 mg .ROUTE .STK-MED ONE Lab/Rad Data: Laboratory Result Diagrams 07/16/25 14:15 07/16/25 14:15 Laboratory Results 07/16/25 07/16/25 07/16/25 Range/Units 14:34 14:15 14:15 WBC (3.98-10.04) x10^3/uL RBC (3.93-5.22) x10^6/uL Hgb (11.2-15.7) g/dL Hct (34.1-44.9) % MCV (79.4-94.8) fL MCH (25.6-32.2) pg MCHC (32.2-35.5) g/dL RDW (11.7-14.4) % Plt Count (182-369) x10^3/uL MPV (9.4-12.3) fL Gran % (34.0-71.1) % Immature Gran % (Auto) (0.001-0.429) % Nucleat RBC Rel Count (0.00-0.2) % Eos # (Auto) (0.04-0.36) x10^3/uL Immature Gran # (Auto) (0.001-0.031) x10^3u/L Absolute Lymphs (auto) (1.18-3.74) x10^3/uL Absolute Monos (auto) (0.24-0.86) x10^3/uL Absolute Nucleated RBC (0.00-0.012) x10^3u/L Lymphocytes % (19.3-51.7) % Monocytes % (4.7-12.5) % Eosinophils % (0.7-5.8) % Basophils % (0.1-1.2) % Absolute Granulocytes (1.56-6.13) x10^3/uL Basophils # (0.01-0.08) x10^3/uL Sodium (135-145) mmol/L Potassium (3.5-5.1) mmol/L Chloride (98-107) mmol/L Carbon Dioxide (22-30) mmol/L Anion Gap (5-15) MEQ/L BUN (7-17) mg/dL Creatinine (0.52-1.04) mg/dL Estimated GFR ML/MIN Glucose (74-106) mg/dL Calcium (8.4-10.2) mg/dL Total Bilirubin (0.2-1.3) mg/dL AST (14-36) U/L ALT (0-35) U/L Alkaline Phosphatase (38-126) U/L Troponin I < 0.012 (0.000-0.033) ng/mL NT-Pro-B Natriuret Pep 150 (<300) pg/mL Serum Total Protein (6.3-8.2) g/dL Albumin (3.5-5.0) g/dL Serum HCG, Qual NEGATIVE (NEGATIVE) Urine Color Yellow (Yellow) Urine Appearance Clear (Clear) Urine pH 7.0 (4.6-8.0) Ur Specific [place] 1.010 (1.005-1.030) Urine Protein Negative (Negative) Urine Glucose (UA) Negative (Negative) mg/dL Urine Ketones Negative (Negative) Urine Blood Negative (Negative) Urine Nitrite Negative (Negative) Urine Bilirubin Negative (Negative) Urine Urobilinogen 0.2 (0.2) mg/dL Ur Leukocyte Esterase Trace A (Negative) U Hyaline Cast (Auto) NONE SEEN (0-2) /LPF Urine Microscopic RBC 0-2 (0-5) /HPF Urine Microscopic WBC 0-2 (0-5) /HPF Ur Epithelial Cells Rare (None Seen) /HPF Urine Bacteria None Seen (None Seen) /HPF Urine Culture Reflexed NO (NO) 07/16/25 07/16/25 Range/Units 14:15 14:15 WBC 7.2 (3.98-10.04) x10^3/uL RBC 3.68 L (3.93-5.22) x10^6/uL Hgb 11.8 (11.2-15.7) g/dL Hct 35.5 (34.1-44.9) % MCV 96.5 H (79.4-94.8) fL MCH 32.1 (25.6-32.2) pg MCHC 33.2 (32.2-35.5) g/dL RDW 12.8 (11.7-14.4) % Plt Count 296 (182-369) x10^3/uL MPV 10.0 (9.4-12.3) fL Gran % 65.0 (34.0-71.1) % Immature Gran % (Auto) 0.4 (0.001-0.429) % Nucleat RBC Rel Count 0.0 (0.00-0.2) % Eos # (Auto) 0.21 (0.04-0.36) x10^3/uL Immature Gran # (Auto) 0.03 (0.001-0.031) x10^3u/L Absolute Lymphs (auto) 1.64 (1.18-3.74) x10^3/uL Absolute Monos (auto) 0.58 (0.24-0.86) x10^3/uL Absolute Nucleated RBC 0.00 (0.00-0.012) x10^3u/L Lymphocytes % 22.7 (19.3-51.7) % Monocytes % 8.0 (4.7-12.5) % Eosinophils % 2.9 (0.7-5.8) % Basophils % 1.0 (0.1-1.2) % Absolute Granulocytes 4.70 (1.56-6.13) x10^3/uL Basophils # 0.07 (0.01-0.08) x10^3/uL Sodium 142 (135-145) mmol/L Potassium 3.8 (3.5-5.1) mmol/L Chloride 109 H (98-107) mmol/L Carbon Dioxide 26 (22-30) mmol/L Anion Gap 10.5 (5-15) MEQ/L BUN 15 (7-17) mg/dL Creatinine 0.89 (0.52-1.04) mg/dL Estimated GFR 78.9 ML/MIN Glucose 103 (74-106) mg/dL Calcium 9.1 (8.4-10.2) mg/dL Total Bilirubin 0.40 (0.2-1.3) mg/dL AST 19 (14-36) U/L ALT 14 (0-35) U/L Alkaline Phosphatase 53 (38-126) U/L Troponin I (0.000-0.033) ng/mL NT-Pro-B Natriuret Pep (<300) pg/mL Serum Total Protein 7.0 (6.3-8.2) g/dL Albumin 4.2 (3.5-5.0) g/dL Serum HCG, Qual (NEGATIVE) Urine Color (Yellow) Urine Appearance (Clear) Urine pH (4.6-8.0) Ur Specific [place] (1.005-1.030) Urine Protein (Negative) Urine Glucose (UA) (Negative) mg/dL Urine Ketones (Negative) Urine Blood (Negative) Urine Nitrite (Negative) Urine Bilirubin (Negative) Urine Urobilinogen (0.2) mg/dL Ur Leukocyte Esterase (Negative) U Hyaline Cast (Auto) (0-2) /LPF Urine Microscopic RBC (0-5) /HPF Urine Microscopic WBC (0-5) /HPF Ur Epithelial Cells (None Seen) /HPF Urine Bacteria (None Seen) /HPF Urine Culture Reflexed (NO) - Progress Progress: improved Progress Note: 07/16/25 18:46 SUMMARY 49-year-old female with history of migraines, chest pain, seizures, and hypertension presented with chest pain, headache, and disequilibrium for two days. EKGs showed sinus rhythm without STEMI or dynamic changes. CT abdomen/pelvis and CTA head/neck revealed no acute abnormality; x-ray femur showed no fracture. Incidental findings included diverticulosis, hernias, pulmonary nodule, renal and splenic cysts. Patient informed of all findings. Hospitalist consulted and accepted for admission for further evaluation, including MRI, due to persistent symptoms. Ongoing symptoms and abnormal exam findings warranted inpatient management and advanced imaging. Urine with leukocyte esterase, concern for UTI, given IV cefepime due to penicillin allergy. EKG EKG obtained at 13:55: A 12-lead EKG was performed at 13:55, and I independently interpret it as demonstrating sinus rhythm, no STEMI, normal ID, QRS, borderline QTc. No prolongation of the intervals. Compared to EKG on 05-25-2025: no dynamic changes, similar morphology. No prolongation of the intervals. IMAGING CT abdomen pelvis: No acute abnormality per radiology; incidental findings of diverticulosis, inguinal hernia (fat-containing), hiatal hernia, lung nodule, renal cyst, splenic cyst CTA head and neck: No acute abnormality per radiology X-ray femur: This imaging was independently interpreted by me. We do not have Radiology over-reads available today for x-ray imaging, and the final report of this image will be read by radiology at a later date. If there is discrepancy, radiology to inform the staff or patient of any abnormality or incidental finding. Patient/family informed of this and agreeable with evaluation and management. On my limited, preliminary interpretation of the image: No acute fracture Patient informed of incidental findings on imaging. MEDICAL DECISION MAKING This 49-year-old female with a history of migraines, chest pain, seizures, and hypertension presented with ongoing chest pain, headache, and a subjective feeling of being off balance for the past two days. She denied syncopal episodes and reported bruising on her right thigh from a prior fall but remained ambulatory. Physical examination revealed no focal neurological deficits, intact strength and sensation in all extremities, and normal cardiovascular findings. Diagnostic evaluation included EKGs showing sinus rhythm without STEMI or dynamic changes, CT abdomen/pelvis and CTA head/neck without acute abnormalities, and femur x-ray without fracture. Incidental findings included diverticulosis, inguinal and hiatal hernias, pulmonary nodule, renal cyst, and splenic cyst. The patient was informed of all incidental findings. Given persistent symptoms and the absence of acute findings on initial imaging, the decision was made to admit the patient for further evaluation, including MRI and additional studies. The hospitalist team was consulted and accepted the patient for admission. Admission is warranted due to ongoing symptoms and the need for advanced imaging to rule out high-risk etiologies. PATIENT DISCUSSION I discussed available results and all incidental findings with the patient. SOUND EFFECTS PERSON DISCUSSION I spoke with Dr. Hernandez of the hospitalist team, and we reviewed the patient's history, exam, and work up. We discussed the patient's management, and Dr. Hernandez graciously agreed to accept the patient for admission and will manage their further in-hospital care. DISPOSITION Inpatient: Hospital Patient now meets inpatient-level severity due to persistent chest pain, headache, and disequilibrium for two days without acute findings on initial imaging. Serial EKGs showed sinus rhythm without STEMI or dynamic changes; CTA head/neck and CT abdomen/pelvis revealed no acute pathology. Admission is required for advanced imaging and continuous monitoring to rule out high-risk etiologies. Condition: Stable Patient is resting well in room. Discussed case in detail and all results reviewed. Patient agrees with admission to the hospital for further evaluation of their condition. The patient asked questions and I answered until my diagnosis, concerns, and plan for treatment were fully understood. The patient is awake, alert, oriented, coherent, and lucid. The patient is comfortable with admission to the hospital for further evaluation of their condition. Patient verbalized understanding and agrees with plan. 07/16/25 18:50 - Departure Departure Disposition: Observation Clinical Impression: Chest pain, Headache, Dizziness, Lung nodule, Cyst Condition: Stable Critical Care Time: No Referrals: FRANSISCA RAY NP [Primary Care Provider, [facility]] - Follow up/PCP as directed
[2025-07-16] MEDS ORDERED: MAXIPIME 1 GM ONE (18:37)
[2025-07-16] MEDS: MAXIPIME 1 GM** 1 G in Sodium Chloride 0.9% 100 ML IV STA (18:39)
--- NOTE | 2025-07-16 19:39 | XRAY ---
Indication: Chest pain. Comparison: May 12, 2025 Portable chest inflated and remains clear. Heart not enlarged. Bony thorax intact again with cervical fusion hardware. No new/acute findings.
--- NOTE | 2025-07-16 19:41 | XRAY ---
Indication: Pain and bruising following fall. Comparison: June 03, 2013 2 view right femur demonstrates new osteopenia and CT proven tiny spurring right greater trochanter. No acute bony, articular, or soft tissue abnormalities.
[2025-07-16 19:47] VITALS: BP 158/96; PULSE 58; RESP 18; O2SAT 98
--- NOTE | 2025-07-16 23:56 | PCM.HP ---
History of Present Illness - Chief Complaint Chief Complaint: Dizziness, chest pain History of Present Illness: The patient is a 49-year-old female with a PMH of seizure disorder, SLE, hypertension, who presents to the emergency room with complaints of generalized weakness, unsteadiness, and episodes of unresponsiveness. The patient reports that she has been experiencing these episodes since she woke up on Thursday morning. Reports that she felt somewhat unsteady and fell down the stairs as she stepped out of her camper, roughly 3 stairs in total. She denied experiencing head trauma or loss of consciousness at that time. Notes that ever since then, she has been experiencing episodes where she would be unresponsive to those around her times witnessed by her daughter. She notes that these episodes even occurred while she was driving. Notes that although she has had primarily grand mal seizures, that she has also had episodes of absence seizures similar to these episodes in the past. The patient also endorsed some chest heaviness over the past several weeks for which she was evaluated by cardiology as an outpatient 1 week ago and is scheduled to undergo stress testing. Reported that she feels somewhat better since arrival but continues to feel generalized fatigue. She denied experiencing shortness of breath, fever, chills, cough, nausea, vomiting, abdominal pain, diarrhea, or urinary complaints. Review of Systems: A complete and thorough review of system was performed and was negative except as stated in the HPI. Physical Examination: General: Well-nourished, in no acute distress. Normal weight. HEENT: Head atruamatic normocephaic, PERRL, no scleral icterus, no oral lesions Cardiovascular: Regular rate and rhythm, S1S2 normal, no murmurs appreciated Respiratory: Clear to auscultation bilaterally, no wheezes, rales, rhonchi Abdomen: Soft, nontender, nondistended, normoactive bowel sounds, no guarding Musculoskeletal: Full range of motion. No obvious swelling or tenderness noted Neurological: Alert and 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. Strength 4/5 of RUE and RLE and 5/5 in all other extremities grossly Psychiatric: Normal mood, affect, with cohesive thought process Assessment & Plan Episode of unresponsiveness and generalized fatigue - Very suspicious for ongoing seizures with subsequent postictal state - Consult neurology - Fall and seizure precautions - Patient reports compliance with her Keppra 1 g twice daily at home - Patient will likely need EEG - Cardiac monitoring for now SLE - Continue with home hydroxychloroquine 200 mg p.o. daily Hypertension - Continue with home lisinopril 10 mg p.o. nightly DVT prophylaxis: Lovenox subcu CODE STATUS: Full code Medications & Allergies Home Medications: Home Medication List levETIRAcetam [Levetiracetam] 1,000 mg PO BID 02/20/19 [History Confirmed 07/16/25] Hydroxychloroquine Sulfate 200 mg PO DAILY 02/19/23 [History Confirmed 07/16/25] Metoprolol Tartrate 25 mg [Lopressor 25MG Tab] 25 mg PO DAILY 07/11/24 [History Confirmed 07/16/25] Lisinopril 10 mg [Zestril 10 MG] 10 mg PO HS 08/23/24 [History Confirmed 07/16/25] hydrOXYzine pamoate [Hydroxyzine Pamoate] 50 mg PO HS 12/30/24 [History Confirmed 07/16/25] Ondansetron ODT 4 MG [Zofran Odt 4 mg] 4 mg PO Q6H PRN PRN #20 tablet 04/08/25 [Rx Confirmed 07/16/25] PANTOPRAZOLE 40 mg Tablet [Protonix 40MG Tablet] 40 mg PO DAILY 07/11/25 [History Confirmed 07/16/25] Ranolazine 500 MG [Ranexa 500 MG] 500 mg PO BID 07/11/25 [History Confirmed 07/16/25] Allergies/Adverse Reactions: Allergies Allergy/AdvReac Type Severity Reaction Status Date / Time ca Allergy Severe Swelling Verified 07/16/25 13:56 pregabalin [From Lyrica] Allergy Severe Verified 07/16/25 13:56 amoxicillin Allergy Intermediate Rash Verified 07/16/25 13:56 Penicillins Allergy Intermediate Vomiting Verified 07/16/25 13:56 propoxyphene HCl Allergy Intermediate PASS OUT Verified 07/16/25 13:56 [From Darvon] - Past Medical History Past Medical History: Yes Neurological History: Epilepsy, Migraines, Paralysis, Peripheral Neuropathy, Seizures, Stroke, TIA ENT History: No Pertinent History Cardiac History: Angina, Deep Vein Thrombosis, Hypertension, Myocardial Infarction ([place]) Respiratory History: Asthma, Bronchitis, COPD Endocrine Medical History: Other Musculoskelatal History: Degenerative Disk Disease, Fibromyalgia, Rheumatoid Arthritis GI Medical History: GERD, Hemorrhoids History: Other Pyscho-Social History: Anxiety, Bipolar, Depression, Panic Disorder Reproductive Disorders: No Pertinent History Comment: hx stage 1 prolapsed bladder - Female History Hx Last Menstrual Period: 17 years ago Are you now?: No - Past Surgical History Past Surgical History: Yes Neuro Surgical History: No Pertinent History Cardiac History: No Pertinent History Respiratory Surgery: No Pertinent History GI Surgical History: No Pertinent History Genitourinary Surgical Hx: No Pertinent History Musculskeletal Surgical Hx: Orthopedic Surgery Female Surgical History: Tubal Ligation Other Surgical History: ABLATION - TUBAL LIGATION. BILATERAL WRIST SURGERY. PLATE AND TWO SCREWS IN THE BACK OF NECK. 12/26/20 Surgery to back. cadaver bone in neck Significant Family History: no pertinent family hx - Social History Smoking Status: Current every day smoker How long have you smoked: vape Exposure to second hand smoke: Yes Alcohol: None Drug Use: none - Social Determinants of Health Will the patient participate in the screening: Yes Do you worry about a steady place to live?: No Do you have any problems with any of the following?: No known problems In the past 12 months,have you had to go without utilities?: No Have you or anyone in your house had to go without enough: No Transportation Issues: No Has anyone in your support network made you feel unsafe?: No Does the patient want assistance with any of the above?: No Comment: . - Physical Exam Vital Signs: Vital Signs - 24 hr Temp Pulse Pulse Resp BP BP Pulse Ox 07/16/25 19:43 58 L 18 158/96 98 07/16/25 18:51 99 07/16/25 18:30 127/56 07/16/25 18:00 66 15 127/66 98 07/16/25 17:30 65 18 125/63 97 07/16/25 17:01 61 15 116/59 99 07/16/25 16:50 63 15 127/58 99 07/16/25 14:34 69 12 112/55 96 07/16/25 14:31 96 H 112/55 98 07/16/25 14:18 96 07/16/25 14:07 70 07/16/25 14:06 73 12 110/63 96 07/16/25 14:04 97 F 83 20 110/63 97 Results - Labs Lab/Micro Results: Lab Results-Last 24 Hours 07/16/25 07/16/25 07/16/25 Range/Units 14:15 14:15 14:15 WBC 7.2 (3.98-10.04) x10^3/uL RBC 3.68 L (3.93-5.22) x10^6/uL Hgb 11.8 (11.2-15.7) g/dL Hct 35.5 (34.1-44.9) % MCV 96.5 H (79.4-94.8) fL MCH 32.1 (25.6-32.2) pg MCHC 33.2 (32.2-35.5) g/dL RDW 12.8 (11.7-14.4) % Plt Count 296 (182-369) x10^3/uL MPV 10.0 (9.4-12.3) fL Gran % 65.0 (34.0-71.1) % Immature Gran % (Auto) 0.4 (0.001-0.429) % Nucleat RBC Rel Count 0.0 (0.00-0.2) % Eos # (Auto) 0.21 (0.04-0.36) x10^3/uL Immature Gran # (Auto) 0.03 (0.001-0.031) x10^3u/L Absolute Lymphs (auto) 1.64 (1.18-3.74) x10^3/uL Absolute Monos (auto) 0.58 (0.24-0.86) x10^3/uL Absolute Nucleated RBC 0.00 (0.00-0.012) x10^3u/L Lymphocytes % 22.7 (19.3-51.7) % Monocytes % 8.0 (4.7-12.5) % Eosinophils % 2.9 (0.7-5.8) % Basophils % 1.0 (0.1-1.2) % Absolute Granulocytes 4.70 (1.56-6.13) x10^3/uL Basophils # 0.07 (0.01-0.08) x10^3/uL Sodium 142 (135-145) mmol/L Potassium 3.8 (3.5-5.1) mmol/L Chloride 109 H (98-107) mmol/L Carbon Dioxide 26 (22-30) mmol/L Anion Gap 10.5 (5-15) MEQ/L BUN 15 (7-17) mg/dL Creatinine 0.89 (0.52-1.04) mg/dL Estimated GFR 78.9 ML/MIN Glucose 103 (74-106) mg/dL Calcium 9.1 (8.4-10.2) mg/dL Total Bilirubin 0.40 (0.2-1.3) mg/dL AST 19 (14-36) U/L ALT 14 (0-35) U/L Alkaline Phosphatase 53 (38-126) U/L Troponin I < 0.012 (0.000-0.033) ng/mL NT-Pro-B Natriuret Pep 150 (<300) pg/mL Serum Total Protein 7.0 (6.3-8.2) g/dL Albumin 4.2 (3.5-5.0) g/dL Serum HCG, Qual (NEGATIVE) Urine Color (Yellow) Urine Appearance (Clear) Urine pH (4.6-8.0) Ur Specific [place] (1.005-1.030) Urine Protein (Negative) Urine Glucose (UA) (Negative) mg/dL Urine Ketones (Negative) Urine Blood (Negative) Urine Nitrite (Negative) Urine Bilirubin (Negative) Urine Urobilinogen (0.2) mg/dL Ur Leukocyte Esterase (Negative) U Hyaline Cast (Auto) (0-2) /LPF Urine Microscopic RBC (0-5) /HPF Urine Microscopic WBC (0-5) /HPF Ur Epithelial Cells (None Seen) /HPF Urine Bacteria (None Seen) /HPF Urine Culture Reflexed (NO) 07/16/25 07/16/25 07/16/25 Range/Units 14:15 14:34 18:25 WBC (3.98-10.04) x10^3/uL RBC (3.93-5.22) x10^6/uL Hgb (11.2-15.7) g/dL Hct (34.1-44.9) % MCV (79.4-94.8) fL MCH (25.6-32.2) pg MCHC (32.2-35.5) g/dL RDW (11.7-14.4) % Plt Count (182-369) x10^3/uL MPV (9.4-12.3) fL Gran % (34.0-71.1) % Immature Gran % (Auto) (0.001-0.429) % Nucleat RBC Rel Count (0.00-0.2) % Eos # (Auto) (0.04-0.36) x10^3/uL Immature Gran # (Auto) (0.001-0.031) x10^3u/L Absolute Lymphs (auto) (1.18-3.74) x10^3/uL Absolute Monos (auto) (0.24-0.86) x10^3/uL Absolute Nucleated RBC (0.00-0.012) x10^3u/L Lymphocytes % (19.3-51.7) % Monocytes % (4.7-12.5) % Eosinophils % (0.7-5.8) % Basophils % (0.1-1.2) % Absolute Granulocytes (1.56-6.13) x10^3/uL Basophils # (0.01-0.08) x10^3/uL Sodium (135-145) mmol/L Potassium (3.5-5.1) mmol/L Chloride (98-107) mmol/L Carbon Dioxide (22-30) mmol/L Anion Gap (5-15) MEQ/L BUN (7-17) mg/dL Creatinine (0.52-1.04) mg/dL Estimated GFR ML/MIN Glucose (74-106) mg/dL Calcium (8.4-10.2) mg/dL Total Bilirubin (0.2-1.3) mg/dL AST (14-36) U/L ALT (0-35) U/L Alkaline Phosphatase (38-126) U/L Troponin I < 0.012 (0.000-0.033) ng/mL NT-Pro-B Natriuret Pep (<300) pg/mL Serum Total Protein (6.3-8.2) g/dL Albumin (3.5-5.0) g/dL Serum HCG, Qual NEGATIVE (NEGATIVE) Urine Color Yellow (Yellow) Urine Appearance Clear (Clear) Urine pH 7.0 (4.6-8.0) Ur Specific [place] 1.010 (1.005-1.030) Urine Protein Negative (Negative) Urine Glucose (UA) Negative (Negative) mg/dL Urine Ketones Negative (Negative) Urine Blood Negative (Negative) Urine Nitrite Negative (Negative) Urine Bilirubin Negative (Negative) Urine Urobilinogen 0.2 (0.2) mg/dL Ur Leukocyte Esterase Trace A (Negative) U Hyaline Cast (Auto) NONE SEEN (0-2) /LPF Urine Microscopic RBC 0-2 (0-5) /HPF Urine Microscopic WBC 0-2 (0-5) /HPF Ur Epithelial Cells Rare (None Seen) /HPF Urine Bacteria None Seen (None Seen) /HPF Urine Culture Reflexed NO (NO) 07/16/25 Range/Units 22:44 WBC (3.98-10.04) x10^3/uL RBC (3.93-5.22) x10^6/uL Hgb (11.2-15.7) g/dL Hct (34.1-44.9) % MCV (79.4-94.8) fL MCH (25.6-32.2) pg MCHC (32.2-35.5) g/dL RDW (11.7-14.4) % Plt Count (182-369) x10^3/uL MPV (9.4-12.3) fL Gran % (34.0-71.1) % Immature Gran % (Auto) (0.001-0.429) % Nucleat RBC Rel Count (0.00-0.2) % Eos # (Auto) (0.04-0.36) x10^3/uL Immature Gran # (Auto) (0.001-0.031) x10^3u/L Absolute Lymphs (auto) (1.18-3.74) x10^3/uL Absolute Monos (auto) (0.24-0.86) x10^3/uL Absolute Nucleated RBC (0.00-0.012) x10^3u/L Lymphocytes % (19.3-51.7) % Monocytes % (4.7-12.5) % Eosinophils % (0.7-5.8) % Basophils % (0.1-1.2) % Absolute Granulocytes (1.56-6.13) x10^3/uL Basophils # (0.01-0.08) x10^3/uL Sodium (135-145) mmol/L Potassium (3.5-5.1) mmol/L Chloride (98-107) mmol/L Carbon Dioxide (22-30) mmol/L Anion Gap (5-15) MEQ/L BUN (7-17) mg/dL Creatinine (0.52-1.04) mg/dL Estimated GFR ML/MIN Glucose (74-106) mg/dL Calcium (8.4-10.2) mg/dL Total Bilirubin (0.2-1.3) mg/dL AST (14-36) U/L ALT (0-35) U/L Alkaline Phosphatase (38-126) U/L Troponin I < 0.012 (0.000-0.033) ng/mL NT-Pro-B Natriuret Pep (<300) pg/mL Serum Total Protein (6.3-8.2) g/dL Albumin (3.5-5.0) g/dL Serum HCG, Qual (NEGATIVE) Urine Color (Yellow) Urine Appearance (Clear) Urine pH (4.6-8.0) Ur Specific [place] (1.005-1.030) Urine Protein (Negative) Urine Glucose (UA) (Negative) mg/dL Urine Ketones (Negative) Urine Blood (Negative) Urine Nitrite (Negative) Urine Bilirubin (Negative) Urine Urobilinogen (0.2) mg/dL Ur Leukocyte Esterase (Negative) U Hyaline Cast (Auto) (0-2) /LPF Urine Microscopic RBC (0-5) /HPF Urine Microscopic WBC (0-5) /HPF Ur Epithelial Cells (None Seen) /HPF Urine Bacteria (None Seen) /HPF Urine Culture Reflexed (NO) - Radiology Impressions Radiology Exams & Impressions: Radiology Procedures Category Date Time Status ABDOMEN AND PELVIS W/0 CONTRAS [CT] Stat Exams 07/16/25 15:40 Completed CHEST 1 VIEW (PORTABLE) Stat Exams 07/16/25 15:40 Completed CTA HEAD W AND/OR WO CONTRAST [CT] Stat Exams 07/16/25 15:12 Completed FEMUR Stat Exams 07/16/25 15:40 Completed NECK W/WO CONTRAST [CT] Stat Exams 07/16/25 15:12 Completed Telemedicine Encounter - Telemedicine Encounter Telemedicine Encounter: "The entirety of this encounter was performed via Telemedicine" This visit was performed using real-time audio and video connection between my location and thepatients locationwith the assistance of a surrogateat the patients location. Written or verbal consent was obtained from the patient/guardian to perform this visit [facility] technology. Any patient questions regarding the telemedicine interaction were answered.
--- NOTE | 2025-07-17 00:03 | PCM.DS ---
Discharge Summary Date of Admission: 07/16/25 20:00 Date of Discharge: 07/16/25 Admitting Physician: MANUEL MEEKS MD Primary Care Provider: FRANSISCA RAY Allergies Allergies ca Allergy (Severe, Verified 07/16/25 13:56) Swelling pregabalin [From Lyrica] Allergy (Severe, Verified 07/16/25 13:56) amoxicillin Allergy (Intermediate, Verified 07/16/25 13:56) Rash Penicillins Allergy (Intermediate, Verified 07/16/25 13:56) Vomiting propoxyphene HCl [From Darvon] Allergy (Intermediate, Verified 07/16/25 13:56) PASS OUT Hospital Summary - Hospital Course Hospital Course: The patient was initially admitted on 07/16 for episode of unresponsiveness and ataxia along with right upper extremity and right lower extremity weakness. Neurology was to be consulted. Shortly after admission, informed by the patient's RN that the patient has decided to leave AMA and did not wish to wait for the provider to discuss further with her. Please refer to the H&P. No additional management was performed aside from what is listed in the original H&P. - Vitals & Intake/Output Vital Signs: Vital Signs Temperature 97 F 07/16/25 14:04 Pulse Rate 58 L 07/16/25 19:43 Respiratory Rate 18 07/16/25 19:43 Blood Pressure 158/96 07/16/25 19:43 O2 Sat by Pulse Oximetry 98 07/16/25 19:43 Intake & Output: Intake & Output 07/14/25 07/15/25 07/16/25 07/17/25 06:59 06:59 06:59 06:59 Intake Total 240 Balance 240 Weight 109.8 kg - Lab Result Diagrams: 07/16/25 14:15 07/16/25 14:15 Lab Results-Last 24 Hrs: Lab Results-Last 24 Hours 07/16/25 07/16/25 07/16/25 Range/Units 14:15 14:15 14:15 WBC 7.2 (3.98-10.04) x10^3/uL RBC 3.68 L (3.93-5.22) x10^6/uL Hgb 11.8 (11.2-15.7) g/dL Hct 35.5 (34.1-44.9) % MCV 96.5 H (79.4-94.8) fL MCH 32.1 (25.6-32.2) pg MCHC 33.2 (32.2-35.5) g/dL RDW 12.8 (11.7-14.4) % Plt Count 296 (182-369) x10^3/uL MPV 10.0 (9.4-12.3) fL Gran % 65.0 (34.0-71.1) % Immature Gran % (Auto) 0.4 (0.001-0.429) % Nucleat RBC Rel Count 0.0 (0.00-0.2) % Eos # (Auto) 0.21 (0.04-0.36) x10^3/uL Immature Gran # (Auto) 0.03 (0.001-0.031) x10^3u/L Absolute Lymphs (auto) 1.64 (1.18-3.74) x10^3/uL Absolute Monos (auto) 0.58 (0.24-0.86) x10^3/uL Absolute Nucleated RBC 0.00 (0.00-0.012) x10^3u/L Lymphocytes % 22.7 (19.3-51.7) % Monocytes % 8.0 (4.7-12.5) % Eosinophils % 2.9 (0.7-5.8) % Basophils % 1.0 (0.1-1.2) % Absolute Granulocytes 4.70 (1.56-6.13) x10^3/uL Basophils # 0.07 (0.01-0.08) x10^3/uL Sodium 142 (135-145) mmol/L Potassium 3.8 (3.5-5.1) mmol/L Chloride 109 H (98-107) mmol/L Carbon Dioxide 26 (22-30) mmol/L Anion Gap 10.5 (5-15) MEQ/L BUN 15 (7-17) mg/dL Creatinine 0.89 (0.52-1.04) mg/dL Estimated GFR 78.9 ML/MIN Glucose 103 (74-106) mg/dL Calcium 9.1 (8.4-10.2) mg/dL Total Bilirubin 0.40 (0.2-1.3) mg/dL AST 19 (14-36) U/L ALT 14 (0-35) U/L Alkaline Phosphatase 53 (38-126) U/L Troponin I < 0.012 (0.000-0.033) ng/mL NT-Pro-B Natriuret Pep 150 (<300) pg/mL Serum Total Protein 7.0 (6.3-8.2) g/dL Albumin 4.2 (3.5-5.0) g/dL Serum HCG, Qual (NEGATIVE) Urine Color (Yellow) Urine Appearance (Clear) Urine pH (4.6-8.0) Ur Specific [place] (1.005-1.030) Urine Protein (Negative) Urine Glucose (UA) (Negative) mg/dL Urine Ketones (Negative) Urine Blood (Negative) Urine Nitrite (Negative) Urine Bilirubin (Negative) Urine Urobilinogen (0.2) mg/dL Ur Leukocyte Esterase (Negative) U Hyaline Cast (Auto) (0-2) /LPF Urine Microscopic RBC (0-5) /HPF Urine Microscopic WBC (0-5) /HPF Ur Epithelial Cells (None Seen) /HPF Urine Bacteria (None Seen) /HPF Urine Culture Reflexed (NO) 07/16/25 07/16/25 07/16/25 Range/Units 14:15 14:34 18:25 WBC (3.98-10.04) x10^3/uL RBC (3.93-5.22) x10^6/uL Hgb (11.2-15.7) g/dL Hct (34.1-44.9) % MCV (79.4-94.8) fL MCH (25.6-32.2) pg MCHC (32.2-35.5) g/dL RDW (11.7-14.4) % Plt Count (182-369) x10^3/uL MPV (9.4-12.3) fL Gran % (34.0-71.1) % Immature Gran % (Auto) (0.001-0.429) % Nucleat RBC Rel Count (0.00-0.2) % Eos # (Auto) (0.04-0.36) x10^3/uL Immature Gran # (Auto) (0.001-0.031) x10^3u/L Absolute Lymphs (auto) (1.18-3.74) x10^3/uL Absolute Monos (auto) (0.24-0.86) x10^3/uL Absolute Nucleated RBC (0.00-0.012) x10^3u/L Lymphocytes % (19.3-51.7) % Monocytes % (4.7-12.5) % Eosinophils % (0.7-5.8) % Basophils % (0.1-1.2) % Absolute Granulocytes (1.56-6.13) x10^3/uL Basophils # (0.01-0.08) x10^3/uL Sodium (135-145) mmol/L Potassium (3.5-5.1) mmol/L Chloride (98-107) mmol/L Carbon Dioxide (22-30) mmol/L Anion Gap (5-15) MEQ/L BUN (7-17) mg/dL Creatinine (0.52-1.04) mg/dL Estimated GFR ML/MIN Glucose (74-106) mg/dL Calcium (8.4-10.2) mg/dL Total Bilirubin (0.2-1.3) mg/dL AST (14-36) U/L ALT (0-35) U/L Alkaline Phosphatase (38-126) U/L Troponin I < 0.012 (0.000-0.033) ng/mL NT-Pro-B Natriuret Pep (<300) pg/mL Serum Total Protein (6.3-8.2) g/dL Albumin (3.5-5.0) g/dL Serum HCG, Qual NEGATIVE (NEGATIVE) Urine Color Yellow (Yellow) Urine Appearance Clear (Clear) Urine pH 7.0 (4.6-8.0) Ur Specific [place] 1.010 (1.005-1.030) Urine Protein Negative (Negative) Urine Glucose (UA) Negative (Negative) mg/dL Urine Ketones Negative (Negative) Urine Blood Negative (Negative) Urine Nitrite Negative (Negative) Urine Bilirubin Negative (Negative) Urine Urobilinogen 0.2 (0.2) mg/dL Ur Leukocyte Esterase Trace A (Negative) U Hyaline Cast (Auto) NONE SEEN (0-2) /LPF Urine Microscopic RBC 0-2 (0-5) /HPF Urine Microscopic WBC 0-2 (0-5) /HPF Ur Epithelial Cells Rare (None Seen) /HPF Urine Bacteria None Seen (None Seen) /HPF Urine Culture Reflexed NO (NO) 07/16/25 Range/Units 22:44 WBC (3.98-10.04) x10^3/uL RBC (3.93-5.22) x10^6/uL Hgb (11.2-15.7) g/dL Hct (34.1-44.9) % MCV (79.4-94.8) fL MCH (25.6-32.2) pg MCHC (32.2-35.5) g/dL RDW (11.7-14.4) % Plt Count (182-369) x10^3/uL MPV (9.4-12.3) fL Gran % (34.0-71.1) % Immature Gran % (Auto) (0.001-0.429) % Nucleat RBC Rel Count (0.00-0.2) % Eos # (Auto) (0.04-0.36) x10^3/uL Immature Gran # (Auto) (0.001-0.031) x10^3u/L Absolute Lymphs (auto) (1.18-3.74) x10^3/uL Absolute Monos (auto) (0.24-0.86) x10^3/uL Absolute Nucleated RBC (0.00-0.012) x10^3u/L Lymphocytes % (19.3-51.7) % Monocytes % (4.7-12.5) % Eosinophils % (0.7-5.8) % Basophils % (0.1-1.2) % Absolute Granulocytes (1.56-6.13) x10^3/uL Basophils # (0.01-0.08) x10^3/uL Sodium (135-145) mmol/L Potassium (3.5-5.1) mmol/L Chloride (98-107) mmol/L Carbon Dioxide (22-30) mmol/L Anion Gap (5-15) MEQ/L BUN (7-17) mg/dL Creatinine (0.52-1.04) mg/dL Estimated GFR ML/MIN Glucose (74-106) mg/dL Calcium (8.4-10.2) mg/dL Total Bilirubin (0.2-1.3) mg/dL AST (14-36) U/L ALT (0-35) U/L Alkaline Phosphatase (38-126) U/L Troponin I < 0.012 (0.000-0.033) ng/mL NT-Pro-B Natriuret Pep (<300) pg/mL Serum Total Protein (6.3-8.2) g/dL Albumin (3.5-5.0) g/dL Serum HCG, Qual (NEGATIVE) Urine Color (Yellow) Urine Appearance (Clear) Urine pH (4.6-8.0) Ur Specific [place] (1.005-1.030) Urine Protein (Negative) Urine Glucose (UA) (Negative) mg/dL Urine Ketones (Negative) Urine Blood (Negative) Urine Nitrite (Negative) Urine Bilirubin (Negative) Urine Urobilinogen (0.2) mg/dL Ur Leukocyte Esterase (Negative) U Hyaline Cast (Auto) (0-2) /LPF Urine Microscopic RBC (0-5) /HPF Urine Microscopic WBC (0-5) /HPF Ur Epithelial Cells (None Seen) /HPF Urine Bacteria (None Seen) /HPF Urine Culture Reflexed (NO) - Radiology Exams Ordered Rad Exams-Entire Visit: Radiology Procedures Category Date Time Status ABDOMEN AND PELVIS W/0 CONTRAS [CT] Stat Exams 07/16/25 15:40 Completed CHEST 1 VIEW (PORTABLE) Stat Exams 07/16/25 15:40 Completed CTA HEAD W AND/OR WO CONTRAST [CT] Stat Exams 07/16/25 15:12 Completed FEMUR Stat Exams 07/16/25 15:40 Completed NECK W/WO CONTRAST [CT] Stat Exams 07/16/25 15:12 Completed - Discharge Disposition: Against Medical Advice Condition: Stable Prescriptions: No Action levETIRAcetam [Levetiracetam] 1,000 mg PO BID Hydroxychloroquine Sulfate 200 mg PO DAILY Metoprolol Tartrate 25 mg [Lopressor 25MG Tab] 25 mg PO DAILY Lisinopril 10 mg [Zestril 10 MG] 10 mg PO HS hydrOXYzine pamoate [Hydroxyzine Pamoate] 50 mg PO HS Ondansetron ODT 4 MG [Zofran Odt 4 mg] 4 mg PO Q6H PRN PRN #20 tablet PRN Reason: Vomiting PANTOPRAZOLE 40 mg Tablet [Protonix 40MG Tablet] 40 mg PO DAILY Ranolazine 500 MG [Ranexa 500 MG] 500 mg PO BID Follow up with: FRANSISCA RAY NP [Primary Care Provider, [facility]]
== END 2025-07-16 23:10 | disposition left against medical advice (07) ==
LOC: ED 13:54 → MED SURG 20:00
PROVIDERS: ADMIT Internal Medicine; ATTEND Internal Medicine
DX: R07.9 Chest pain, unspecified (principal); I10 Essential (primary) hypertension; F17.200 Nicotine dependence, unspecified, uncomplicated; R51.9 Headache, unspecified; R53.1 Weakness; W19.XXXA Unspecified fall, initial encounter; Z79.899 Other long term (current) drug therapy
CPT/HCPCS: 36415; 70492; 70496; 71045; 73552; 74176; 80053; 81001; 83880; 84484; 84703; 85025; 93005; 93041; 93268; 94760; 99285; G0378; Q3014

== ENCOUNTER 2025-09-01 13:47 | Emergency (ER) | payer OTHER ==
[2025-09-01 14:37] VITALS: TEMP 98.2
--- NOTE | 2025-09-01 14:37 | ERPHSYRPT ---
- History of Present Illness Time Seen by Provider: 09/01/25 14:37 Source: patient Exam Limitations: no limitations Patient Subjective Stated Complaint: PT states "I have pain on my right side and down into my pelvis, I pee but not much comes out." Triage Nursing Assessment: PT presented alert and oriented X 3, skin pwd. pt ambulates with an upright steady gait, able to speak in clear full sentences. Pt was able to urinate and had an output of approx 20 mL Physician History: This is a 49-year-old overweight white female patient who arrives by private vehicle and is a patient of nurse practitioner Monisha with complaint of flank pain burning and pressure with urination and pelvic pressure. She is having difficulty urinating as well. Onset was this morning at 8 AM. Patient has had history of bladder issues. She has a history of seizure disorder, hypertension, gastroesophageal reflux disease, migraine headache, peripheral neuropathy, TIAs, CVA, asthma, COPD, panic disorder, bipolar disorder, depression, degenerative disc disease, fibromyalgia and rheumatoid arthritis she denies chest pain and denies shortness of breath. Timing/Duration: today Activites at Onset: none Quality: pressure Onset Location: RLQ, pelvic pain (Described as a pressure) Pain Radiation: right flank, left flank Severity of Pain-Max: mild (To moderate) Severity of Pain-Current: mild (Moderate) Prior abdominal problems: none Sexual intercourse history: non-contributory Modifying Factors: Improves With: nothing Associated Symptoms: abdominal pain (Suprapubic/pelvic pressure), lower back pain, other (Difficulty urinating), No vaginal discharge, No vaginal fluid leakage Allergies/Adverse Reactions: ca Allergy (Severe, Verified 07/16/25 13:56) Swelling pregabalin [From Lyrica] Allergy (Severe, Verified 07/16/25 13:56) amoxicillin Allergy (Intermediate, Verified 07/16/25 13:56) Rash Penicillins Allergy (Intermediate, Verified 07/16/25 13:56) Vomiting propoxyphene HCl [From Darvon] Allergy (Intermediate, Verified 07/16/25 13:56) PASS OUT Home Medications: levETIRAcetam [Levetiracetam] 1,000 mg PO BID 02/20/19 [History] Hydroxychloroquine Sulfate 200 mg PO DAILY 02/19/23 [History] Metoprolol Tartrate 25 mg [Lopressor 25MG Tab] 25 mg PO DAILY 07/11/24 [History] Lisinopril 10 mg [Zestril 10 MG] 10 mg PO HS 08/23/24 [History] hydrOXYzine pamoate [Hydroxyzine Pamoate] 50 mg PO HS 12/30/24 [History] PANTOPRAZOLE 40 mg Tablet [Protonix 40MG Tablet] 40 mg PO DAILY 07/11/25 [History] Ranolazine 500 MG [Ranexa 500 MG] 500 mg PO BID 07/11/25 [History] Hx Tetanus, Diphtheria Vaccination/Date Given: No Hx Influenza Vaccination/Date Given: No Hx Pneumococcal Vaccination/Date Given: No Travel Risk - International Travel Have you traveled outside of the country in past 3 weeks: No - Emerging Infectious Disease Are you exhibiting symptoms associated with any current EIDs: No Symptoms: Vomitting - Review of Systems Constitutional: No Symptoms Eyes: No Symptoms Ears, Nose, & Throat: No Symptoms Respiratory: No Symptoms Cardiac: No Symptoms Abdominal/Gastrointestinal: Abdominal Pain (Pelvic pressure) Genitourinary Symptoms: Urinary Retention Musculoskeletal: Back Pain Skin: No Symptoms Neurological: No Symptoms Psychological: No Symptoms Endocrine: No Symptoms Hematologic/Lymphatic: No Symptoms Immunological/Allergic: No Symptoms All Other Systems: Reviewed and Negative - Past Medical History Pertinent Past Medical History: Yes Neurological History: Epilepsy, Migraines, Paralysis, Peripheral Neuropathy, Seizures, Stroke, TIA ENT History: No Pertinent History Cardiac History: Angina, Deep Vein Thrombosis, Hypertension, Myocardial Infarction (PR) Respiratory History: Asthma, Bronchitis, COPD Endocrine Medical History: Other Musculoskeletal History: Degenerative Disk Disease, Fibromyalgia, Rheumatoid Arthritis GI Medical History: GERD, Hemorrhoids History: Other Psycho-Social History: Anxiety, Bipolar, Depression, Panic Disorder Female Reproductive Disorders: No Pertinent History Other Medical History: hx stage 1 prolapsed bladder - Past Surgical History Past Surgical History: Yes Neuro Surgical History: No Pertinent History Cardiac: No Pertinent History Respiratory: No Pertinent History Gastrointestinal: No Pertinent History Genitourinary: No Pertinent History Musculoskeletal: Orthopedic Surgery Female Surgical History: Tubal Ligation Other Surgical History: ABLATION - TUBAL LIGATION. BILATERAL WRIST SURGERY. PLATE AND TWO SCREWS IN THE BACK OF NECK. 12/26/20 Surgery to back. cadaver bone in neck Significant Family History: no pertinent family hx - Female History Hx Last Menstrual Period: ablation Hx Now: No - Social History Smoking Status: Current every day smoker How long have you smoked: yearkt Exposure to second hand smoke: Yes Drug Use: none - Social Determinants of Health Will the patient participate in the screening: Yes Do you worry about a steady place to live?: No Do you have any problems with any of the following?: No known problems In the past 12 months,have you had to go without utilities?: No Transportation Issues: No Has anyone in your support network made you feel unsafe?: No Have you or anyone in your house had to go w/o enough food: No Comment: . - Nursing Vital Signs Nursing Vital Signs: Initial Vital Signs Temperature 98.2 F 09/01/25 14:32 Pulse Rate 68 09/01/25 14:32 Respiratory Rate 18 09/01/25 14:32 Blood Pressure 118/65 09/01/25 14:32 O2 Sat by Pulse Oximetry 98 09/01/25 14:32 Pain Scale Pain Intensity 0 - Physical Exam General Appearance: no apparent distress, alert, anxiety Eye Exam: PERRL/EOMI, eyes nml inspection Ears, Nose, Throat Exam: normal ENT inspection, moist mucous membranes Neck Exam: normal inspection, non-tender, supple, full range of motion Respiratory Exam: normal breath sounds, lungs clear, airway intact, No chest tenderness, No respiratory distress Cardiovascular Exam: regular rate/rhythm, normal heart sounds, normal peripheral pulses Gastrointestinal/Abdomen Exam: soft, normal bowel sounds, tenderness (Suprapubic region), No guarding, No rebound Pelvic Exam: not done Rectal Exam: not done Back Exam: normal inspection, normal range of motion, No CVA tenderness, No vertebral tenderness Extremity Exam: normal inspection, normal range of motion, pelvis stable Neurologic Exam: alert, 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, cooperative, database consultant II-XII nml as tested, nml cerebellar function, nml station & gait, sensation nml Skin Exam: normal color, warm, dry Lymphatic Exam: No adenopathy SpO2 Interpretation: normal SpO2: 98 O2 Delivery: Room Air - Course Nursing assessment & vital signs reviewed: Yes Ordered Tests: Active Orders 24 hr Category Date Time Status ABDOMEN AND PELVIS W/0 CONTRAS [CT] Stat Exams 09/01/25 16:39 Taken CULTURE,URINE Stat Lab 09/01/25 14:51 Received UA W/RFX UR CULTURE Stat Lab 09/01/25 14:51 Completed Medication Summary Discontinued Medications Generic Name Dose Route Start Last Admin Trade Name Manish PRN Reason Stop Dose Admin Hydrocodone Bitart/Acetaminophen 1 tab 09/01/25 16:20 09/01/25 16:35 Hydrocodone/Apap 5/325 1 Tab Tablet PO 09/01/25 16:21 1 tab STAT ONE Administration Hydrocodone Bitart/Acetaminophen Confirm 09/01/25 16:34 Hydrocodone/Apap 5/325 1 Tab Tablet Administered 09/01/25 16:35 Dose 1 tab .ROUTE .STK-MED ONE Lab/Rad Data: Laboratory Results 09/01/25 Range/Units 14:51 Urine Color Yellow (Yellow) Urine Appearance Clear (Clear) Urine pH 5.5 (4.6-8.0) Ur Specific [place] >=1.030 A (1.005-1.030) Urine Protein Trace A (Negative) Urine Glucose (UA) Negative (Negative) mg/dL Urine Ketones Negative (Negative) Urine Blood Negative (Negative) Urine Nitrite Negative (Negative) Urine Bilirubin Negative (Negative) Urine Urobilinogen 1.0 A (0.2) mg/dL Ur Leukocyte Esterase Negative (Negative) U Hyaline Cast (Auto) NONE SEEN (0-2) /LPF Urine Microscopic RBC 3-5 (0-5) /HPF Urine Microscopic WBC 3-5 (0-5) /HPF Ur Epithelial Cells Few (None Seen) /HPF Urine Bacteria Rare A (None Seen) /HPF Urine Culture Reflexed ORDERED SEPARATELY (NO) - Progress Progress: re-examined Air Movement: good Progress Note: 09/01/25 16:48 My medical decision making and the assignment of moderate complexity to this patient's medical issue today is based on review of the patient's past medical history, reviewed patient's medication list, reviewed patient drug allergy list, moderate complexity of this patient's medical issue today is based on review of the patient's past medical history, reviewed patient's medication list, reviewed patient drug allergy list, history present illness and physical findings on examination. The workup in this patient includes initially urinalysis. If this test result is negative, we will proceed with CT scan of the abdomen pelvis without contrast. Differential diagnosis includes was not limited to cystitis, urinary tract infection, pyelonephritis, acute intra-abdominal/pelvic abnormality. 09/01/25 18:36 I interpreted the patient's laboratory data result. Based on laboratory data results, there are no acute, emergent medical issues. The CT scan of the abdomen pelvis without contrast was interpreted by the radiologist and I reviewed the impression. The impression states that there is mild diffuse fecal stasis that is new. There is left renal cysts and a small hiatal hernia. There is evidence of old granulomatous disease. Blood Culture(s) Obtained: No Antibiotics given: No Counseled pt/family regarding: lab results, diagnosis, rad results Medical Desision Making - Diagnostic Testing Diagnostic test were ordered, analyzed, and reviewed by me: Yes Radiological Interpretation: Reviewed by me, Teleradiologist Report - Risk of complications Low Risk: Low risk of morbidity from additional dx testing or treatment - Departure Departure Disposition: Home Clinical Impression: Abdominal pain, Constipation Condition: Stable Critical Care Time: No Referrals: FRANSISCA RAY NP [Primary Care Provider, [facility]] - Follow up/PCP as directed Additional Instructions: Drink plenty of fluids. Slowly advance your diet. Call your primary care provider on 09/04/2025, to make arrangements for follow-up appointment for further evaluation management. Minimize your use of any type of narcotic pain medicine as they will slow your intestinal tract movement.
[2025-09-01 16:31] LABS: Glucose, Urine Negative (Negative); Protein,Urine Dip Trace (Negative)
[2025-09-01] MEDS ORDERED: NORCO 5/325 MG ONE (16:34)
[2025-09-01] MEDS: NORCO 5/325 MG PO ONE (16:35)
[2025-09-01 18:23] VITALS: BP 105/61; PULSE 62; RESP 18
[2025-09-01 18:38] VITALS: O2SAT 98
--- NOTE | 2025-09-02 08:01 | XRAY ---
Indication: Pelvic pain/pressure. Multiple contiguous axial images obtained through the abdomen and pelvis without contrast. Comparison: July 16, 2025 Lung bases again demonstrates minimal dependent atelectasis and tiny right base calcified granuloma. No infiltrate or effusion. Heart not enlarged. Stable small hiatal hernia with partial intrathoracic stomach. Noncontrasted stomach and bowel loops appear nonobstructed with normal appendix. There is now mild diffuse scattered colonic fecal debris. Stable small left renal exophytic cyst and splenic calcified granulomas. No free fluid/air. Remaining liver, gallbladder, pancreas, spleen, adrenal glands, kidneys, ureters, bladder, uterus, and aorta are unremarkable for noncontrast exam. Osseous structures intact again with minimal/mild degenerative changes throughout thoracolumbar spine and minimal levoscoliosis. Impression: 1. New mild diffuse fecal stasis. 2. Again chronic findings including hiatal hernia with partial intrathoracic stomach, left renal cyst, chronic bony findings, and old granulomatous disease. 3. Remaining CT abdomen/pelvis without contrast exam continues to be negative.
== END 2025-09-01 18:53 | disposition home or self-care (01) ==
LOC: ED 13:47
DX: K59.00 Constipation, unspecified (principal); R10.A1 Flank pain, right side; R10.21 Pelvic and perineal pain right side; R30.0 Dysuria; I10 Essential (primary) hypertension; Z79.899 Other long term (current) drug therapy; Z72.0 Tobacco use